=== PATIENT | female | born 1970 | race Caucasian/White ===

== ENCOUNTER 2016-04-12 10:00 | Outpatient (RCR) | payer BC, MEDICAID ==
[~2016-04-12 10:00] MED LIST: AC325T PO; ACYC400T21 PO; ALPR.5T PO; AMOX-355 PO; AMOX500C2 PO; CTLP20T PO; DARI7.5T2 PO; DIFLUCAN PO; DIPH25TA82 PO; DXCC100C PO; EPIN0.3P3 IM; FAMC250T2 PO; FAMC500T2 PO; FAMO20TA73 PO; FAMO40TA6 PO; FLUC100T PO; FLUO40CA PO; GABA-531 PO; GABA400T PO; GRALISE PO; HCTZ12.5T PO; HDR2T PO; HSCO125 PO; HYDR1TAB86 PO; INVANZ IV; LIDOCAINE 3% TOP; LNZ600T PO; MELO-195 PO; META-84 PO; META800T5 PO; METO5TAB2 PO; MORP15TA PO; MORP15TA8 PO; MTR250T PO; MUPI22OI TP; Morphine Sulfate PO; NFPRILOC40 PO; OXYC-12 PO; OXYC-272 PO; PANT40TA PO; PNT40TEC PO; PRD20T PO; PREG200C PO; PREG50C PO; PROLOPRIM PO; SCR1T1 PO; SENN1TAB76 PO; SUCR1TAB PO; TRAM50TA2 PO; TRAZ50TA67 PO; TRIM100T7 PO; TRZ100T PO; TRZ50T PO; Tramadol Hcl PO; VALA100033 PO; [UNRECOGNIZED DRUG - CODE] PO; [UNRECOGNIZED DRUG - OTHER] PO
--- OUTSIDE RECORDS SUMMARY | 2016-04-12 10:04 | XMS REPORT | Continuity of Care Document ---
Author Author [facility] Organization [facility] Address Unknown Phone Unavailable Care Team Providers Care Early Childhood Lead Teacher Name Role Phone Ammon Griffith PCP [phone] Source Comments Some departments are not documenting in the electronic medical record. If you do not see the information that you expected, contact Release of Information in the Health Information Management department at [phone] for further assistance in locating additional records.[facility] Active Allergies and Adverse Reactions Allergen Noted Date Severity Reactions Comments Hyophen 02/07/2014 RASH Phenergan 04/05/2010 UNKNOWN Vancomycin 04/06/2010 ITCHING Current Medications Prescription Sig. Disp. Refills Start End Date Status Date valACYclovir (VALTREX) Take 1,000 mg by mouth Active 500 mg PO tablet twice daily. amoxicillin/K clavulanate Take 1 Tab by mouth every Active (AUGMENTIN) 500/125 mg 12 hours. tablet darifenacin ER(+) Take 7.5 mg by mouth Active (ENABLEX) 7.5 mg tablet daily. FLUoxetine (PROZAC) 20 mg Take 40 mg by mouth Active capsule daily. hydrochlorothiazide Take 12.5 mg by mouth Active (HYDRODIURIL) 12.5 mg tab daily. tablet metaxalone(+) (SKELAXIN) Take 800 mg by mouth Active 800 mg tablet twice daily. morphine IR (MSIR) 15 mg Take 30 mg by mouth twice Active tablet daily pantoprazole DR Take 40 mg by mouth Active (PROTONIX) 40 mg tablet daily. pregabalin (LYRICA) 200 Take 225 mg by mouth Active mg capsule twice daily. traZODone (DESYREL) 150 Take 150 mg by mouth at Active mg tablet bedtime daily. fluconazole (DIFLUCAN) Take 100 mg by mouth Active 100 mg tablet daily. meloxicam (MOBIC) 7.5 mg Take 15 mg by mouth Active tablet daily. gabapentin 600 mg Tb24 Take 1,800 mg by mouth at Active bedtime daily. trimethoprim (TRIMPEX) Take 100 mg by mouth at Active 100 mg tablet bedtime daily. pentosan polysulfate Take 1 Cap by mouth three 270 Cap 3 05/12/19 Active sodium (ELMIRON) 100 mg times daily. Take w/ 16 capsule water 1 hr before or 2 hrs after meals hydrOXYzine (ATARAX) 25 Take 1 Tab by mouth at 30 Tab 3 05/12/19 Active mg tablet bedtime daily. 16 amitriptyline (ELAVIL) 10 Take 1 Tab by mouth at 90 Tab 3 05/12/19 Active mg tablet bedtime daily. 16 estrogens, conjugated Take 0.625 mg by mouth Active (PREMARIN) 0.625 mg daily. tablet acyclovir (ZOVIRAX) 400 Take 400 mg by mouth Active mg tablet every 24 hours. buPROPion SR(+) Take 150 mg by mouth Active (WELLBUTRIN SR) 150 mg twice daily. tablet sulfamethoxazole-trimetho Take 1 Tab by mouth twice Active prim (BACTRIM SS) 400-80 daily. mg tablet gentamicin(#) 10 mg/mL Inhale 80 mg by mouth Active nebu into the lungs. cholecalciferol(+) Take 1 Cap by mouth every 8 Cap 0 11/05/19 Active (Vitamin D3) 50,000 units 7 days. 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 Leukocytosis 02/07/2014 Facial rash 02/07/2014 HSV (herpes simplex virus) infection 08/28/2011 Cellulitis 04/09/2010 Melanoma (HCC) 04/09/2010 Urinary retention 04/09/2010 Blurry vision, bilateral 04/09/2010 Social History Tobacco Use Types Packs/Day Years Used Date Never Smoker Smokeless Tobacco: Never Used Alcohol Use Drinks/Week oz/Week Comments No 0 Standard 0.0 drinks or equivalent Last Filed Vital Signs Vital Sign Reading Time Taken Blood Pressure 110/71 11/03/2015 12:58 PM CDT Pulse 86 11/03/2015 12:58 PM CDT Temperature 36.7 C (98.1 F) 11/03/2015 12:58 PM CDT Respiratory Rate 18 11/03/2015 12:58 PM CDT Height 1.626 m (5' 4") 11/03/2015 12:58 PM CDT Weight 85.276 kg (188 lb) 11/03/2015 12:58 PM CDT Body Mass Index 32.25 11/03/2015 12:58 PM CDT Oxygen Saturation 97% 11/03/2015 12:58 PM CDT Plan of Care Health Maintenance Due Date Last Done Comments Physical (Comprehensive) 1977 Exam Pertussis Vaccine 1981 Tetanus Vaccine 10/30/1987 Cervical Cancer Screening 10/30/1991 Breast Cancer Screening 2010 Influenza Vaccine 10/21/2015 Results from Last 3 Months Not on file
[2016-04-12 10:12] LABS: BASOPHILS % (AUTO) 0 % (0-10); EOSINOPHILS # (AUTO) 0.2 10^3/uL (0.0-0.3); EOSINOPHILS % (AUTO) 2 % (0-10); LYMPHOCYTES # (AUTO) 1.7 X 10^3 (1.0-4.0); LYMPHOCYTES % (AUTO) 27 % (12-44); MEAN CORPUSCULAR HEMOGLOBIN 31 PG (25-34); MEAN CORPUSCULAR HGB CONC 34 G/DL (32-36); MEAN CORPUSCULAR VOLUME 91 FL (80-99); MEAN PLATELET VOLUME 8.2 FL (7.4-10.4); MONOCYTES # (AUTO) 0.5 X 10^3 (0.0-1.0); MONOCYTES % (AUTO) 8 % (0-12); NEUTROPHILS % (AUTO) 62 % (42-75); PLATELET COUNT 340 10^3/uL (130-400); RED CELL DISTRIBUTION WIDTH 12.6 % (10.0-14.5); WHITE BLOOD COUNT 6.3 10^3/uL (4.3-11.0)
[2016-04-12 11:13] LABS: ALANINE AMINOTRANSFERASE 13 U/L (0-55); ALBUMIN 4.4 G/DL (3.2-4.5); ANION GAP 11 MMOL/L (5-14); ASPARTATE AMINO TRANSFERASE 13 U/L (5-34); BILIRUBIN,TOTAL 0.5 MG/DL (0.1-1.0); BLOOD UREA NITROGEN 15 MG/DL (7-18); BUN/CREATININE RATIO 19; CALCIUM 9.6 MG/DL (8.5-10.1); CARBON DIOXIDE 22 MMOL/L (21-32); CHLORIDE 104 MMOL/L (98-107); CREATININE SERUM 0.79 MG/DL (0.60-1.30); GFR ESTIMATED > 60; GLUCOSE 88 MG/DL (70-105); LACTATE DEHYDROGENASE 158 U/L (125-220); POTASSIUM 3.9 MMOL/L (3.6-5.0); SODIUM 137 MMOL/L (135-145); TOTAL PROTEIN 7.1 G/DL (6.4-8.2)
[2016-04-14] MEDS ORDERED: DULO60CA58 PO (08:26)
[2016-04-14] MEDS ORDERED: ACYC200C PO (08:29)
[2016-04-14] MEDS ORDERED: CHOL500050 PO (09:38)
[2016-04-14] MEDS ORDERED: ACYC400T PO (09:38)
[2016-04-14] MEDS ORDERED: AMIT50TA3 PO (09:38)
== END 2016-07-11 | disposition home or self-care (01) ==
LOC: ONC 10:00
PROVIDERS: ATTEND Internal Medicine Hematology & Oncology
DX: Z08 Encounter for follow-up examination after completed treatment for malignant neoplasm (principal); Z85.820 Personal history of malignant melanoma of skin; F17.210 Nicotine dependence, cigarettes, uncomplicated; Z79.899 Other long term (current) drug therapy
CPT/HCPCS: 36415; 80053; 83615; 85025; 99213

== ENCOUNTER 2016-04-13 22:50 | Inpatient (IN) | payer BC, MEDICARE ==
[~2016-04-13] VITALS: Ht 162.6 cm; Wt 91.8 kg
--- OUTSIDE RECORDS SUMMARY | 2016-04-13 22:56 | XMS REPORT | Continuity of Care Document ---
Author Author [facility] Organization [facility] Address Unknown Phone Unavailable Care Team Providers Care Lead Caster Name Role Phone Ammon Griffith PCP [phone] Source Comments Some departments are not documenting in the electronic medical record. If you do not see the information that you expected, contact Release of Information in the Health Information Management department at [phone] for further assistance in locating additional records.[facility] Active Allergies and Adverse Reactions Allergen [...]
--- NOTE | 2016-04-13 23:28 | ED Integumentary General ---
General Chief Complaint: Skin/Wound Problems Stated Complaint: FACE INFECTION Nursing Triage Note: PT TO ED 6 W/ C/O SHINGLES RASH ONSET YESTERDAY, WORSE TODAY. NO VISIBLE RASH NOTED BUT PT DOES C/O BURNING TO SITE. REPORTS RECENT OUTBREAK IN JANUARY OF 2016 INWHICH SHE WAS ADMITTED Source: patient Exam Limitations: no limitations History of Present Illness Time seen by provider: 23:15 Initial Comments Here with report of pain to the right side of her face. She has recurrent shingles infection to that area. She denies involvement to the eye currently. This started on her ear sometime back but had been stable. Over the last 2 days she is noted that she has markedly increasing pain to the right side of her face. She is currently on treatment dose of acyclovir at 800 mg 5 times daily. She had 3 doses yesterday and 5 doses today. She states the pain is getting much worse tonight. She has lesions on her cheek. There is no obvious lesion to her nose or right thigh. She does have a questionable lesion on the right ear. Denies fever or chills. Denies nausea or vomiting. Timing/Duration: getting worse Severity: moderate, severe Location: face Associated Symptoms: blisters change in skin texture edema tingling Allergies and Home Medications Allergies Coded Allergies: promethazine (Verified Allergy, Unknown, 04/13/16) vancomycin (Unverified Allergy, Unknown, RASH, 02/03/14) reacted to iv vancomycin in cancer center on 01/21 Home Medications 30 MG TAB #60 30 MG PO Q12HR Prescribed by: MARYSE VIVAS on 02/27/14 1548 50 MG TAB 90Days 50 MG PO Q6HR PRN PRN pain Prescribed by: MARYSE VIVAS on 02/27/14 1548 Acyclovir 400 Mg Tablet #120 400 MG PO BID Prescribed by: MARYSE VIVAS on 02/27/14 1548 Darifenacin Hydrobromide 7.5 Mg Tab.sr.24h 7.5 MG PO DAILY (Reported) Doxycycline Hyclate 100 Mg Tab #20 100 MG PO BID@ Prescribed by: MARYSE VIVAS on 02/27/14 1548 Fluoxetine Hcl 40 Mg Capsule 40 MG PO DAILY (Reported) Gabapentin 600 Mg Tab.er.24h 1,800 MG PO HS (Reported) Hydrochlorothiazide 12.5 Mg Cap 12.5 MG PO DAILY (Reported) Meloxicam 15 Mg Tablet 15 MG PO DAILY (Reported) Morphine Sulfate 15 Mg Tablet 15 MG PO Q4H PRN PRN PAIN (Reported) Pantoprazole Sodium 40 Mg Tablet.dr 40 MG PO DAILY (Reported) Pregabalin 50 Mg Cap 90Days 200 MG PO BID Prescribed by: MARYSE VIVAS on 02/27/14 154 Trazodone Hcl 100 Mg Tab 90Days 100 MG PO HS Prescribed by: MARYSE VIVAS on 02/27/14 1548 Constitutional: see HPINo chills, No fever EENTM: see HPI Respiratory: no symptoms reportedNo short of breath, No wheezing Cardiovascular: no symptoms reportedNo chest pain, No edema Gastrointestinal: no symptoms reportedNo nausea, No vomiting Genitourinary: no symptoms reported Musculoskeletal: no symptoms reported Skin: see HPI change in color lesions Psychiatric/Neurological: See HPI Other (pain to the trigeminal nerve on the right) Endocrine: No Symptoms Reported All Other Systems Reviewed Negative Unless Noted: Yes Past Hikwvxw-Gdoiwx-Qrbvdz Hx Patient Social History Alcohol Use: Denies Use Recreational Drug Use: No Smoking Status: Never a Smoker Recent Foreign Travel: No Contact w/Someone Who Travel: No Recent Infectious Disease Expo: No Recent Hopitalizations: Yes Immunizations Up To Date Tetanus Booster (TDap): Unknown Seasonal Allergies Seasonal Allergies: No Surgeries HX Surgeries: Yes (2 c sections,tumor removed from abd, neck sx, EGD, Bladder resection) Surgeries: Section, Gallbladder, Hysterectomy Respiratory Hx Respiratory Disorders: No Cardiovascular Hx Cardiac Disorders: No Neurological Hx Neurological Disorders: Yes Neurological Disorders: Headaches /Migraines Reproductive System Hx Reproductive Disorders: Yes (Surgeries for Ovarian cysts) Sexually Transmitted Disease: No HIV/AIDS: No Female Reproductive Disorders: Ovarian Cyst Genitourinary Hx Genitourinary Disorders: Yes (Bladder resection) Genitourinary Disorders: UTI-Chronic Gastrointestinal Hx Gastrointestinal Disorders: Yes (Chronic dysphagia) Gastrointestinal Disorders: Gastroesophageal Reflux, Esophagitis, Hiatal Hernia , Irritable Bowel Musculoskeletal Hx Musculoskeletal Disorders: Yes (radiculopathy) Musculoskeletal Disorders: Fibromyalgia Endocrine Hx Endocrine Disorders: No HEENT HX ENT Disorders: Yes HEENT Disorders: Dysphagia Loss of Vision: Denies Hearing Impairment: Denies Cancer Hx Cancer: Yes Cancer: Lymphoma, Melanoma Psychosocial Hx Psychiatric Problems: Yes Behavioral Health Disorders: Anxiety, Depression Integumentary HX Skin/Integumentary Disorder: No (Prior facial shingles in skin lining) Skin/Integumentary Disorders: Recent Skin Changes Blood Transfusions Hx Blood Disorders: No Adverse Reaction to a Blood Tr: No Reviewed Nursing Assessment Reviewed/Agree w Nursing PMH: Yes Family Medical History Significant Family History: No Pertinent Family Hx Family Medial History: Arthritis 19 MOTHER G8 SISTER Cataracts 19 MOTHER Congenital heart disease 19 FATHER (HEART DZ) Diabetes mellitus 19 FATHER Hypertension 19 FATHER Myocardial infarction 19 FATHER Respiratory disorder 19 FATHER (EMPHYSEMA) Seizure disorder G8 BROTHER (CEBERAL PALSY ALOS) Physical Exam Vital Signs Vital Sign - Last 12Hours 04/13/16 23:04 Temp 97.4 Pulse 115 Resp 20 B/P 144/106 Pulse Ox 98 O2 Delivery Room Air Capillary Refill : Less Than 3 Seconds General Appearance: WD/WN no apparent distress HEENT: PERRL/EOMI pharynx normal other (vesicular lesions to the right side of the face that does not involve the right eye her nose) Neck: full range of motion supple Cardiovascular: regular rate, rhythm no murmur Respiratory: lungs clear normal breath sounds Gastrointestinal: normal bowel sounds non tender soft Back: normal inspection no CVA tenderness no vertebral tenderness Extremities: non-tender normal inspection Neurologic/Psychiatric: alert oriented x 3 Skin: warm/dry other (vesicular lesions to the right face along the trigeminal nerve distribution. Small lesion to the front of the right ear) Skin Problem Location: face Skin Problem Character: lesion, vesicular Lymphatic: no adenopathy Progress/Results/Core Measures Results/Orders Lab Results Laboratory Tests Test 04/13/16 23:59 04/14/16 00:00 Range/Units Basophils # (Auto) 0.0 0.0-0.1 10^3/uL Basophils (%) (Auto) 0 0-10 % Eosinophils # (Auto) 0.2 0.0-0.3 10^3/uL Eosinophils (%) (Auto) 2 0-10 % Hematocrit 41 35-52 % Hemoglobin 14.4 11.5-16.0 G/DL Lymphocytes # (Auto) 2.2 1.0-4.0 X 10^3 Lymphocytes (%) (Auto) 28 12-44 % Mean Corpuscular Hemoglobin 32 25-34 PG Mean Corpuscular Hemoglobin Concent 35 32-36 G/DL Mean Corpuscular Volume 90 80-99 FL Mean Platelet Volume 8.8 7.4-10.4 FL Monocytes # (Auto) 0.6 0.0-1.0 X 10^3 Monocytes (%) (Auto) 8 0-12 % Neutrophils # (Auto) 4.7 1.8-7.8 X 10^3 Neutrophils (%) (Auto) 62 42-75 % Platelet Count 334 130-400 10^3/uL Red Blood Count 4.57 4.35-5.85 10^6/uL Red Cell Distribution Width 12.4 10.0-14.5 % White Blood Count 7.6 4.3-11.0 10^3/uL Alanine Aminotransferase (ALT/SGPT) 22 0-55 U/L Albumin 4.4 3.2-4.5 G/DL Alkaline Phosphatase 75 40-136 U/L Anion Gap 14 5-14 MMOL/L Aspartate Amino Transf (AST/SGOT) 25 5-34 U/L BUN/Creatinine Ratio 15 Blood Urea Nitrogen 13 7-18 MG/DL C-Reactive Protein High Sensitivity 0.36 0.00-0.50 MG/DL Calcium Level 9.4 8.5-10.1 MG/DL Carbon Dioxide Level 21 21-32 MMOL/L Chloride Level 101 98-107 MMOL/L Creatinine 0.84 0.60-1.30 MG/DL Estimat Glomerular Filtration Rate > 60 Glucose Level 98 70-105 MG/DL Lactic Acid Level 1.7 0.5-2.0 MMOL/L Potassium Level 4.0 3.6-5.0 MMOL/L Sodium Level 136 135-145 MMOL/L Total Bilirubin 0.6 0.1-1.0 MG/DL Total Protein 7.6 6.4-8.2 G/DL My Orders Orders-OCTAVIA HERRERA MD Saline Lock/Iv-Start (04/13/16 23:04) Cbc With Automated Diff (04/13/16 23:04) Comprehensive Metabolic Panel (04/13/16 23:04) Hs C Reactive Protein (04/13/16 23:04) Lactic Acid Analyzer (04/13/16 23:04) Blood Culture (04/13/16 23:04) Fentanyl Injection (Sublimaze Injection (04/13/16 23:37) Diphenhydramine Injection (Benadryl Inje (04/13/16 23:46) Acyclovir Injection (Zovirax Injection) (04/14/16 01:13) Vital Signs/I&O Vital Sign - Last 12Hours 04/13/16 23:04 Temp 97.4 Pulse 115 Resp 20 B/P 144/106 Pulse Ox 98 O2 Delivery Room Air Blood Pressure Mean: 119 Progress Note : Progress Note Seen and evaluated. Patient has history of shingles infection to the right side of the face on multiple occasions. She has required admissions to do this on multiple occasions and has had it up to the eye as well. Currently she is without I complaints or symptoms. This is worsening this despite therapeutic dosing of oral acyclovir. We will evaluate for systemic infection with labs. IV, labs and fentanyl 75 g IV ordered. Benadryl 25 mg IV ordered for itching. Monitor patient. 0107: Discussed case with Dr. Sprague. He accepts patient for admission, inpatient status. We will consult Dr. Warren in the morning for eye exam. Acyclovir 800 mg IV ordered now. Discussed with patient and family agree with plan. Departure Communication Time/Spoke to Admitting Phy: 01:07 Impression Impression: Primary Impression: Herpes zoster Qualified Code: B02.8 - Zoster with other complications Additional Impression: Trigeminal neuralgia of right side of face Disposition: ADMITTED INPATIENT Condition: Stable Decision to Admit Reason: Admit from ER (General) Decision to Admit/Date: Apr 14, 2016 Time/Decision to Admit Time: 01:07 Departure-Patient Inst. Referrals: MAISHA PIZANO MD (PCP) Primary Care Physician OCTAVIA HERRERA MD Apr 13, 2016 23:27
[2016-04-13] MEDS ORDERED: fentaNYL INJECTION 100 MCG/2 ML AMP IVP STA (23:37)
[2016-04-13] MEDS ORDERED: diphenhydrAMINE 50 MG/ML INJ (BENADRYL) IV STA (23:46)
[2016-04-14 00:28] LABS: BASOPHILS % (AUTO) 0 % (0-10); EOSINOPHILS # (AUTO) 0.2 10^3/uL (0.0-0.3); EOSINOPHILS % (AUTO) 2 % (0-10); LYMPHOCYTES # (AUTO) 2.2 X 10^3 (1.0-4.0); LYMPHOCYTES % (AUTO) 28 % (12-44); MEAN CORPUSCULAR HEMOGLOBIN 32 PG (25-34); MEAN CORPUSCULAR HGB CONC 35 G/DL (32-36); MEAN CORPUSCULAR VOLUME 90 FL (80-99); MEAN PLATELET VOLUME 8.8 FL (7.4-10.4); MONOCYTES # (AUTO) 0.6 X 10^3 (0.0-1.0); MONOCYTES % (AUTO) 8 % (0-12); NEUTROPHILS # (AUTO) 4.7 X 10^3 (1.8-7.8); NEUTROPHILS % (AUTO) 62 % (42-75); PLATELET COUNT 334 10^3/uL (130-400); RED BLOOD COUNT 4.57 10^6/uL (4.35-5.85); RED CELL DISTRIBUTION WIDTH 12.4 % (10.0-14.5); WHITE BLOOD COUNT 7.6 10^3/uL (4.3-11.0)
[2016-04-14 00:51] LABS: ALANINE AMINOTRANSFERASE 22 U/L (0-55); ALBUMIN 4.4 G/DL (3.2-4.5); ANION GAP 14 MMOL/L (5-14); ASPARTATE AMINO TRANSFERASE 25 U/L (5-34); BILIRUBIN,TOTAL 0.6 MG/DL (0.1-1.0); BLOOD UREA NITROGEN 13 MG/DL (7-18); BUN/CREATININE RATIO 15; CALCIUM 9.4 MG/DL (8.5-10.1); CARBON DIOXIDE 21 MMOL/L (21-32); CHLORIDE 101 MMOL/L (98-107); CREATININE SERUM 0.84 MG/DL (0.60-1.30); GFR ESTIMATED > 60; GLUCOSE 98 MG/DL (70-105); SODIUM 136 MMOL/L (135-145); TOTAL PROTEIN 7.6 G/DL (6.4-8.2); hs C REACTIVE PROTEIN 0.36 MG/DL (0.00-0.50)
[2016-04-14] MEDS ORDERED: ACYCLOVIR INJECTION 800 MG in NS (IVPB) 250 ML IV STA (01:13)
[2016-04-14] MEDS ORDERED: fentaNYL INJECTION 100 MCG/2 ML AMP IVP STA (01:47)
[2016-04-14] MEDS ORDERED: diphenhydrAMINE 50 MG/ML INJ (BENADRYL) IV STA (01:48)
[2016-04-14 02:00] VITALS: BP 135/87
[2016-04-14] MEDS ORDERED: fentaNYL INJECTION 100 MCG/2 ML AMP IV PRN (03:15)
[2016-04-14] MEDS ORDERED: ONDANSETRON 4 MG/2 ML (SDV) Z0FRAN IV PRN (03:15)
[2016-04-14 04:40] VITALS: BP 104/63
[2016-04-14] MEDS ORDERED: FLU TRIvalent (5 YOA+) 2016-17 (AFLURIA) 0.5 ML IM ONE (08:00)
[2016-04-14 08:12] VITALS: BP 112/68
[2016-04-14] MEDS ORDERED: DULO60CA58 PO (08:26)
[2016-04-14] MEDS ORDERED: ACYC200C PO (08:29)
[2016-04-14] MEDS: ACYCLOVIR 800 MG/NS 250 ML IVPB IV SCH ×4 (08:48→17:18)
[2016-04-14] MEDS ORDERED: diphenhydrAMINE 50 MG/ML INJ (BENADRYL) IVP ONE (09:00)
[2016-04-14] MEDS ORDERED: AMIT50TA3 PO (09:38)
[2016-04-14] MEDS ORDERED: ACYC400T PO (09:38)
[2016-04-14] MEDS ORDERED: CHOL500050 PO (09:38)
[2016-04-14 12:00] VITALS: BP 114/70
[2016-04-14] MEDS ORDERED: ARTIFICAL TEARS 0.4 ML UNIT DOSE (REFRESH PLUS) OD PRN (12:15)
[2016-04-14] MEDS ORDERED: PATIENT MAY USE OWN MEDS, ALL MC SCH (12:30)
--- NOTE | 2016-04-14 12:33 | Consultation ---
History of Present Illness History of Present Illness Patient Consulted On(john/time) 04/14/16 12:28 Date of Admission History of Present Illness This is a 45 year old female with a history of recurrent shingles infections to her right face and eye. She has had worsening pain to her right face with burning and itching the past 2 days. She takes acyclovir routinely and did up her dose when these symptoms came on but the pain was worsening so she presented to the emergency room. She does report that the side of her face is bigger and more tender then with her usual flare-ups. She has been admitted for IV acyclovir and IV pain control. Allergies and Home Medications Allergies Coded Allergies: promethazine (Verified Allergy, Unknown, 04/13/16) vancomycin (Unverified Allergy, Unknown, RASH, 02/03/14) reacted to iv vancomycin in cancer center on 01/21 Home Medications Acyclovir 200 Mg Capsule 400 MG PO BID (Reported) TAKES 2 (200 MG) CAPSULES / MAINTENANCE DOSE Acyclovir 400 Mg Tablet 10Days 800 MG PO 5XD (Reported) FILLED 04/12/16 #100 FOR A 10 DAY THERAPY / TAKES 2 (400 MG) TABLETS Amitriptyline HCl 50 Mg Tablet 50 MG PO HS (Reported) Cholecalciferol (Vitamin D3) 5,000 Unit Capsule 5,000 UNIT PO DAILY (Reported) Duloxetine HCl 60 Mg Capsule.dr 60 MG PO DAILY (Reported) Past Vorvapr-Eyvotq-Rodpol Hx Patient Social History Alcohol Use: Denies Use Recreational Drug Use: No Smoking Status: Never a Smoker Recent Foreign Travel: No Contact w/Someone Who Travel: No Recent Infectious Disease Expo: No Recent Hopitalizations: Yes Physical Abuse Screen: No Sexual Abuse: No Immunizations Up To Date Tetanus Booster (TDap): Unknown Seasonal Allergies Seasonal Allergies: No Surgeries HX Surgeries: Yes (2 c sections,tumor removed from abd, neck sx, EGD, Bladder resection) Surgeries: Section, Gallbladder, Hysterectomy Respiratory Hx Respiratory Disorders: No Cardiovascular Hx Cardiac Disorders: No Neurological Hx Neurological Disorders: Yes Neurological Disorders: Headaches /Migraines Reproductive System Hx Reproductive Disorders: Yes (Surgeries for Ovarian cysts) Sexually Transmitted Disease: No HIV/AIDS: No Female Reproductive Disorders: Ovarian Cyst Genitourinary Hx Genitourinary Disorders: Yes (Bladder resection) Genitourinary Disorders: UTI-Chronic Gastrointestinal Hx Gastrointestinal Disorders: Yes (Chronic dysphagia) Gastrointestinal Disorders: Gastroesophageal Reflux, Esophagitis, Hiatal Hernia , Irritable Bowel Musculoskeletal Hx Musculoskeletal Disorders: Yes (radiculopathy) Musculoskeletal Disorders: Fibromyalgia Endocrine Hx Endocrine Disorders: No HEENT HX ENT Disorders: Yes HEENT Disorders: Dysphagia Loss of Vision: Denies Hearing Impairment: Denies Cancer Hx Cancer: Yes Cancer: Lymphoma, Melanoma Psychosocial Hx Psychiatric Problems: Yes Behavioral Health Disorders: Anxiety, Depression Integumentary HX Skin/Integumentary Disorder: No (Prior facial shingles in skin lining) Skin/Integumentary Disorders: Recent Skin Changes Blood Transfusions Hx Blood Disorders: No Adverse Reaction to a Blood Tr: No Reviewed Nursing Assessment Reviewed/Agree w Nursing PMH: Yes Family Medical History Significant Family History: No Pertinent Family Hx Family Medial History: Arthritis 19 MOTHER G8 SISTER Cataracts 19 MOTHER Congenital heart disease 19 FATHER (HEART DZ) Diabetes mellitus 19 FATHER Hypertension 19 FATHER Myocardial infarction 19 FATHER Respiratory disorder 19 FATHER (EMPHYSEMA) Seizure disorder G8 BROTHER (CEBERAL PALSY ALOS) Review of Systems-General Constitutional: No no symptoms reported, No see HPI, No chills, No diaphoresis , No dizziness, No fever, No malaise, No weakness, No weight gain, No weight loss, No other EENTM: other (right facial pain) Respiratory: No no symptoms reported, No see HPI, No cough, No dyspnea on exertion, No hemoptysis, No orthopnea, No phlegm, No short of breath, No stridor , No wheezing, No other Cardiovascular: No no symptoms reported, No see HPI, No chest pain, No edema, No Hx of Intervention, No palpitations, No syncope, No vascular heart diseas, No other Gastrointestinal: No RUQ, No LUQ, No RLQ, No LLQ, No no symptoms reported, No see HPI, No abdominal pain, No constipation, No diarrhea, No dysphagia, No hematemesis, No heartburn, No jaundice, No loss of appetite, No melena, No nausea, No vomiting, No other Genitourinary: No no symptoms reported, No see HPI, No decreased output, No discharge, No dysuria, No frequency, No hematuria, No hesitancy, No incontinence , No nocturia, No pain, No other Musculoskeletal: neck pain Skin: No no symptoms reported, No see HPI, No change in color, No change in hair/nails, No dryness, No hx of skin cancer, No lesions, No lumps, No pruritus , No rash, No other Psychiatric/Neurological: Numbness Paresthesia (right neck/face) Physical Exam-General Problems Physical Exam Vital Signs Vital Sign - Last 12Hours 04/13/16 23:04 Temp 97.4 Pulse 115 Resp 20 B/P 144/106 Pulse Ox 98 O2 Delivery Room Air Capillary Refill : Less Than 3 Seconds General Appearance: no apparent distress Eyes: Bilateral Eye PERRL HEENT: PERRL/EOMI other (right parotid enlarged and tender) Neck: supple (with scarring) Respiratory: lungs clear Cardiovascular: regular rate, rhythm Gastrointestinal: normal bowel sounds non tender soft Rectal: deferred Back: no CVA tenderness Extremities: non-tender normal inspection no pedal edema no calf tenderness Neurologic/Psychiatric: alert normal mood/affect oriented x 3 Skin: normal color warm/dry Lymphatic: other (right neck tender but no other obvious salivary gland or lymph node enlargement--just parotid gland) Comments Laboratory Tests 04/13/16 23:59: Basophils # (Auto) 0.0, Basophils (%) (Auto) 0, Eosinophils # (Auto) 0.2, Eosinophils (%) (Auto) 2, Hematocrit 41, Hemoglobin 14.4, Lymphocytes # (Auto) 2.2, Lymphocytes (%) (Auto) 28, Mean Corpuscular Hemoglobin 32, Mean Corpuscular Hemoglobin Concent 35, Mean Corpuscular Volume 90, Mean Platelet Volume 8.8, Monocytes # (Auto) 0.6, Monocytes (%) (Auto) 8, Neutrophils # (Auto ) 4.7, Neutrophils (%) (Auto) 62, Platelet Count 334, Red Blood Count 4.57, Red Cell Distribution Width 12.4, White Blood Count 7.6 04/14/16 00:00: Alanine Aminotransferase (ALT/SGPT) 22, Albumin 4.4, Alkaline Phosphatase 75, Anion Gap 14, Aspartate Amino Transf (AST/SGOT) 25, BUN/Creatinine Ratio 15, Blood Urea Nitrogen 13, C-Reactive Protein High Sensitivity 0.36, Calcium Level 9.4, Carbon Dioxide Level 21, Chloride Level 101, Creatinine 0.84, Estimat Glomerular Filtration Rate > 60, Glucose Level 98, Lactic Acid Level 1.7, Potassium Level 4.0, Sodium Level 136, Total Bilirubin 0.6, Total Protein 7.6 Assessment/Plan Assessment/Plan Admission Diagnosis/Plan 1. Right Facial Pain with History of Recurrent Shingles of Right Face and Eye-- continue IV acyclovir, resume cymbalta 2. Right Parotitis--add IV abx, sour, prednisone and toradol prn Clinical Quality Measures DVT/VTE Risk/Contraindication: Risk Factor Score Per Nursin RFS Level Per Nursing on Admit: 2=Moderate ABELARDO CASE DO Apr 14, 2016 12:33
[2016-04-14] MEDS ORDERED: cefTRIAXone 1 GM (ROCEPHIN) VIAL ONE (13:02)
[2016-04-14] MEDS ORDERED: cefTRIAXone INJECTION 1,000 MG in NS (IVPB) 50 ML IV NR (13:43)
[2016-04-14] MEDS ORDERED: predniSONE 20 MG TAB PO NR (13:44)
[2016-04-14] MEDS: KETOROLAC 30 MG/ML VIAL IVP PRN ×2 (13:59→19:54)
--- NOTE | 2016-04-14 16:12 | Progress Note-Standard ---
Standard Progress Note Progress Notes/Assess & Plan Progress/Assessment & Plan Patient is reporting throbbing pain behind the right eye. Started two days ago. has a history of Zoster R side for last 4 years No loss of vision/photophobia/diplopia or consistant pain is noted. Mild swelling along jaw line self reported by patient to be stable for last 24 hours PERRLA OU IOP 12mmHG OU FROM present Lids are normal no edema or inflammation noted. 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
[2016-04-14 16:40] VITALS: BP 117/78
[2016-04-14 19:40] VITALS: BP 131/83
[2016-04-14] MEDS: AMITRIPTYLINE 50 MG (ELAVIL) TAB PO SCH (19:58)
[2016-04-14] MEDS ORDERED: AMITRIPTYLINE 50 MG (ELAVIL) TAB PO SCH (21:00)
[2016-04-15] VITALS: BP 116/73
[2016-04-15] MEDS: diphenhydrAMINE 25 MG TAB (BENADRYL) PO PRN ×3 (00:07→22:16)
[2016-04-15] MEDS: ACYCLOVIR 800 MG/NS 250 ML IVPB IV SCH ×6 (01:23→17:33)
[2016-04-15] MEDS: KETOROLAC 30 MG/ML VIAL IVP PRN ×2 (01:27→22:16)
[2016-04-15] MEDS: predniSONE 20 MG TAB PO SCH (06:32)
[2016-04-15 08:15] VITALS: BP 113/76
--- NOTE | 2016-04-15 08:50 | Progress Note (SOAP) ---
Subjective Subjective/Events-last exam right side of face shingles improving. Right parotiditis swollen and painful to palpation. Mild uveitis. Patient feel she is improving Objective Exam Vital Signs Date Time Temp Pulse Resp B/P Pulse Ox O2 Delivery O2 Flow Rate FiO2 04/15/16 08:15 97.7 73 16 113/76 97 Room Air 04/15/16 00:00 97.7 111 20 116/73 97 Room Air 04/14/16 19:40 97.6 101 18 131/83 99 Room Air 04/14/16 16:40 96.5 101 16 117/78 96 Room Air 04/14/16 12:00 97.0 99 20 114/70 96 Room Air I & O 04/15/16 07:00 Intake Total 3118 ml Output Total 2300 ml Balance 818 ml Capillary Refill : Less Than 3 Seconds General Appearance: No Apparent Distress WD/WN HEENT: Other (carotid swollen and painful. Shingles improving) Neck: Full Range of Motion Normal Inspection Respiratory: Chest Non Tender Lungs Clear No Accessory Muscle Use No Respiratory Distress Cardiovascular: Regular Rate, Rhythm Gastrointestinal: non tender Results Lab Microbiology 04/14/16 Blood Culture - Preliminary, Resulted No growth Assessment/Plan Assessment/Plan Assess & Plan/Chief Complaint right side of face shingles. Right parotiditis. Mild uveitis Diagnosis/Problems: Clinical Quality Measures DVT/VTE Risk/Contraindication: Risk Factor Score Per Nursin RFS Level Per Nursing on Admit: 2=Moderate OSCAR VARMA DO Apr 15, 2016 08:50
[2016-04-15] MEDS ORDERED: DULoxetine 30 MG (CYMBALTA) CAP PO SCH (09:00)
[2016-04-15] MEDS ORDERED: VITAMIN D3 5,000 UNITS (CHOLECALCIFEROL ) CAPSULE PO SCH (09:00)
[2016-04-15] MEDS: DULoxetine 30 MG (CYMBALTA) CAP PO SCH (09:27)
[2016-04-15] MEDS: VITAMIN D3 5,000 UNITS (CHOLECALCIFEROL ) CAPSULE PO SCH (09:27)
[2016-04-15] MEDS: cefTRIAXone INJECTION 1,000 MG in NS (IVPB) 50 ML IV SCH (09:27)
--- NOTE | 2016-04-15 10:31 | Progress Note-Standard ---
Standard Progress Note Progress Notes/Assess & Plan Progress/Assessment & Plan 45 year old female with history of metastatic melanoma and recurrent right facial herpes viral infection, admitted with flare up of right facial pain, swelling and breakout. Currently on Acyclovir IV with improvement in discomfort and swelling. Not needed pain medications since last night. Complained of itching on right side of face controlled with benadryl. Right eye feels better without pain or visual problems. Appetite good and eating well. Bowels soft but no diarrhea. Continue current treatments. Increase activity as tolerated. MARYSE VIVAS Apr 15, 2016 10:31
--- NOTE | 2016-04-15 11:09 | HISTORY AND PHYSICAL ---
DATE OF ADMISSION: 04/14/2016 The patient is admission to room 435. PRESENTING COMPLAINT: Pain and swelling on the right side of the face. HISTORY OF PRESENT ILLNESS: Ms. Marshall is a 45-year-old female who came to the emergency room last night with complaints of rash on the right side of the face with significant pain and swelling. 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 When her symptoms started two days ago, the patient had increased the dose of acyclovir to 800 mg 5 times daily but in spite of this, her symptoms were worsening last night and hence the emergency room visit. After evaluation she was admitted to the hospital for IV acyclovir. Because of right eye pain, an ophthalmology evaluation was requested with Dr. Warren. PAST MEDICAL HISTORY: 1. Significant for: Stage III melanoma diagnosed 15 years ago with lymphadenopathy in the right lower cervical/supraclavicular area and underwent resection of this followed by a local radiation therapy. A primary site was not identified. She was treated with adjuvant interferon therapy for one year. Approximately 3 months after the completion of the adjuvant therapy she developed metastatic disease on the abdominal wall and underwent resection of this. Since then she has been on surveillance without evidence of recurrence. 2. Since the last several years she has had recurrent episodes of herpes viral infection involving the right side of the face and is on suppressive therapy as an outpatient with occasional flare-ups. 3. The patient was diagnosed with chronic sinusitis and underwent surgical debridement at [facility]. She also had evidence of MRSA and Pseudomonas infection at that time and completed the antibiotic therapy. She was diagnosed with severe vitamin D deficiency and is on replacement. 4. No other major medical problems. 5. Prior surgeries are as mentioned above. SOCIAL HISTORY: The patient is and lives near [place], [place]. 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 She denied any tobacco, alcohol or other recreational drug use. FAMILY HISTORY: Unremarkable and noncontributory. HOME MEDICATIONS: Home medications where reviewed and include: 1. Acyclovir 400 mg b.i.d. 2. Amitriptyline 50 mg at bedtime. 3. Cymbalta 60 mg daily. PHYSICAL EXAMINATION: Physical examination today showed middle aged female, well developed and nourished, awake and oriented in moderate distress due to the pain. VITAL SIGNS: Temperature was 97, pulse rate of 99, respiratory rate 20, blood pressure 114/70. Pulse oximetry was 96% on room air. HEENT: Normocephalic, extraocular muscles intact. There is post surgical and radiation changes of the right side of the neck. There is swelling of the right side of the face with a few skin lesions noted suggestive of herpes viral infection. Oral mucosa moist without lesions. NECK: With post surgical radiation changes as mentioned above. No other lymphadenopathy palpable. CHEST: Chest was symmetrical. LUNGS: Clear to auscultation without wheezes or rales. CARDIOVASCULAR EXAM: Regular in rate and rhythm. No murmurs or gallops heard. ABDOMEN: Soft, nontender, with no hepatosplenomegaly or other masses palpable. EXTREMITIES: Showed no edema. NEUROLOGICAL EXAM: Grossly intact without focal motor deficits. LABORATORY: CBC done last night at the emergency room showed WBC 7.6, hemoglobin 14.4, and platelet count of 334,000 with neutrophil count of 4.7. Chemistry panel showed normal electrolytes. BUN was 13, creatinine 0.84 with a GFR more than 60 mL per minute. Liver function studies were within normal limits. Lactic acid was 1.7. C-reactive protein was 0.36. IMPRESSION: 1. Recurrent herpes viral infection of right trigeminal nerve. 2. Significant pain due to above. 3. History of metastatic melanoma treated as mentioned above. PLAN: 1. I will admit the patient to the hospital and start on acyclovir or 10 mg/kg IV every 8 hours. 2. Pain control with fentanyl 75 mcg IV as needed. 3. Continue home medications. 4. Obtain a consultation with Dr. Warren because of right eye discomfort to rule out eye involvement. 5. Obtain a consultation with Dr. Flor for concurrent medical management. Job ID: [id number] Dictated Date: 04/14/2016 16:32:39 Logistics Administrator Date: 04/15/2016 10:40:39/sim PINO
[2016-04-15] MEDS: fentaNYL INJECTION 100 MCG/2 ML AMP IV PRN ×2 (12:21→15:56)
--- NOTE | 2016-04-15 14:34 | Progress Note-Standard ---
Standard Progress Note Progress Notes/Assess & Plan Progress/Assessment & Plan Patient had a throbbing pain that has resolved behind the right eye Mild swelling along jaw line improved in the last 24 hours PERRLA OU IOP 12mmHG OU FROM present Lids are normal no edema or inflammation noted. Conj OS white and quiet OD no circumlimbal injection Anterior chamber appears clear Vitreous clear no signs of posterior inflammation on non dilated exam Macula has strong foveal light reflex Vascularization normal C/D .25 vitreous is clear with no signs of inflammation Final Diagnosis Since patient is improving with IV Antiviral and systemic steroid will delay topical steroid therapy OD. Previous pain likely from edema surrounding orbit which is improving. Mild early uveitis has improved significantly with heavy topical lubrication Verbal orders for AT QID OD provided to staff Will not RTC on patient will inpatient unless or condition regresses. Patient to schedule an IOP check in clinic when systemic steroid is discontinued CARMEN ALVAREZ OD Apr 15, 2016 2:34 pm
[2016-04-15 16:00] VITALS: BP 135/86
[2016-04-15] MEDS: ARTIFICAL TEARS 0.4 ML UNIT DOSE (REFRESH PLUS) OD SCH ×2 (17:33→20:27)
[2016-04-15] MEDS: AMITRIPTYLINE 50 MG (ELAVIL) TAB PO SCH (19:41)
[2016-04-16] VITALS: BP 145/88
[2016-04-16] MEDS: ACYCLOVIR 800 MG/NS 250 ML IVPB IV SCH ×8 (01:09→18:26)
[2016-04-16] MEDS: fentaNYL INJECTION 100 MCG/2 ML AMP IV PRN ×2 (01:13→20:03)
[2016-04-16 05:15] LABS: BASOPHILS % (AUTO) 0 % (0-10); EOSINOPHILS # (AUTO) 0.2 10^3/uL (0.0-0.3); EOSINOPHILS % (AUTO) 2 % (0-10); LYMPHOCYTES # (AUTO) 2.3 X 10^3 (1.0-4.0); LYMPHOCYTES % (AUTO) 35 % (12-44); MEAN CORPUSCULAR HEMOGLOBIN 31 PG (25-34); MEAN CORPUSCULAR HGB CONC 34 G/DL (32-36); MEAN CORPUSCULAR VOLUME 92 FL (80-99); MEAN PLATELET VOLUME 8.9 FL (7.4-10.4); MONOCYTES # (AUTO) 0.5 X 10^3 (0.0-1.0); MONOCYTES % (AUTO) 7 % (0-12); NEUTROPHILS # (AUTO) 3.7 X 10^3 (1.8-7.8); NEUTROPHILS % (AUTO) 55 % (42-75); PLATELET COUNT 302 10^3/uL (130-400); RED BLOOD COUNT 4.01 10^6/uL (4.35-5.85); RED CELL DISTRIBUTION WIDTH 12.1 % (10.0-14.5); WHITE BLOOD COUNT 6.7 10^3/uL (4.3-11.0)
[2016-04-16 05:35] LABS: ANION GAP 9 MMOL/L (5-14); BLOOD UREA NITROGEN 10 MG/DL (7-18); BUN/CREATININE RATIO 14; CALCIUM 8.3 MG/DL (8.5-10.1); CARBON DIOXIDE 20 MMOL/L (21-32); CHLORIDE 109 MMOL/L (98-107); CREATININE SERUM 0.73 MG/DL (0.60-1.30); GFR ESTIMATED > 60; GLUCOSE 83 MG/DL (70-105); POTASSIUM 3.9 MMOL/L (3.6-5.0); SODIUM 138 MMOL/L (135-145)
[2016-04-16] MEDS: predniSONE 20 MG TAB PO SCH (06:25)
[2016-04-16 08:00] VITALS: BP 124/80
[2016-04-16] MEDS: DULoxetine 30 MG (CYMBALTA) CAP PO SCH (08:28)
[2016-04-16] MEDS: cefTRIAXone INJECTION 1,000 MG in NS (IVPB) 50 ML IV SCH (08:28)
[2016-04-16] MEDS: VITAMIN D3 5,000 UNITS (CHOLECALCIFEROL ) CAPSULE PO SCH (08:28)
[2016-04-16] MEDS: ARTIFICAL TEARS 0.4 ML UNIT DOSE (REFRESH PLUS) OD SCH ×4 (08:29→19:59)
--- NOTE | 2016-04-16 08:51 | Progress Note (SOAP) ---
Subjective Subjective/Events-last exam patient feeling better today. Parotid gland swelling is less. Patient has less pain in parotid gland. Shingles in right side of face is improving according to patient. Patient having less pain in the air. Patient voices no complaints Objective Exam Vital Signs Date Time Temp Pulse Resp B/P Pulse Ox O2 Delivery O2 Flow Rate FiO2 04/16/16 00:00 97.5 81 22 145/88 98 Room Air 04/15/16 16:00 97.8 94 18 135/86 98 Room Air I & O 04/16/16 07:00 Intake Total 3422 ml Output Total 4100 ml Balance -678 ml Capillary Refill : Less Than 3 Seconds General Appearance: No Apparent Distress WD/WN HEENT: Other (parotid gland right less swelling. Shingles right side of face) Neck: Normal Inspection Respiratory: Chest Non Tender Lungs Clear No Accessory Muscle Use No Respiratory Distress Cardiovascular: Regular Rate, Rhythm No Murmur Results Lab Laboratory Tests 04/16/16 04:36 Laboratory Tests 04/16/16 04:36: Anion Gap 9, BUN/Creatinine Ratio 14, Basophils # (Auto) 0.0, Basophils (%) ( Auto) 0, Blood Urea Nitrogen 10, Calcium Level 8.3L, Carbon Dioxide Level 20L, Chloride Level 109H, Creatinine 0.73, Eosinophils # (Auto) 0.2, Eosinophils (%) (Auto) 2, Estimat Glomerular Filtration Rate > 60, Glucose Level 83, Hematocrit 37, Hemoglobin 12.5, Lymphocytes # (Auto) 2.3, Lymphocytes (%) (Auto) 35, Mean Corpuscular Hemoglobin 31, Mean Corpuscular Hemoglobin Concent 34, Mean Corpuscular Volume 92, Mean Platelet Volume 8.9, Monocytes # (Auto) 0.5, Monocytes (%) (Auto) 7, Neutrophils # (Auto) 3.7, Neutrophils (%) (Auto) 55, Platelet Count 302, Potassium Level 3.9, Red Blood Count 4.01L, Red Cell Distribution Width 12.1, Sodium Level 138, White Blood Count 6.7 Microbiology 04/14/16 Blood Culture - Preliminary, Resulted No growth Assessment/Plan Assessment/Plan Assess & Plan/Chief Complaint right side of face shingles. Right parotiditis. Mild uveitis. . 04/16/16. Shingles improving on right side of face. Right parotiditis getting smaller and less painful Diagnosis/Problems: Clinical Quality Measures DVT/VTE Risk/Contraindication: Risk Factor Score Per Nursin RFS Level Per Nursing on Admit: 2=Moderate OSCAR VARMA DO Apr 16, 2016 08:50
--- NOTE | 2016-04-16 11:21 | Progress Note-Standard ---
Standard Progress Note Progress Notes/Assess & Plan Progress/Assessment & Plan 45 year old female with history of metastatic melanoma and recurrent right facial herpes viral infection, admitted with flare up of right facial pain, swelling and breakout. Currently on Acyclovir IV with improvement in discomfort and swelling. Not needed pain medications since last night. Complained of intermittent pain on right side of face. Right eye feels better without pain or visual problems. Appetite good and eating well. Bowels soft but no diarrhea. Has poor venous access. Will order PICC line for tomorrow AM. Continue current treatments. Increase activity as tolerated. MARYSE VIVAS Apr 16, 2016 11:21
[2016-04-16] MEDS: KETOROLAC 30 MG/ML VIAL IVP PRN (15:36)
[2016-04-16 16:57] VITALS: BP 120/78
[2016-04-16] MEDS: AMITRIPTYLINE 50 MG (ELAVIL) TAB PO SCH (19:59)
[2016-04-16 23:54] VITALS: BP 114/77
[2016-04-17] MEDS: ACYCLOVIR 800 MG/NS 250 ML IVPB IV SCH ×6 (01:04→17:13)
[2016-04-17] MEDS: KETOROLAC 30 MG/ML VIAL IVP PRN ×3 (01:04→20:23)
[2016-04-17] MEDS: predniSONE 20 MG TAB PO SCH (06:19)
[2016-04-17 08:00] VITALS: BP 132/84
[2016-04-17] MEDS: DULoxetine 30 MG (CYMBALTA) CAP PO SCH (09:16)
[2016-04-17] MEDS: ARTIFICAL TEARS 0.4 ML UNIT DOSE (REFRESH PLUS) OD SCH ×4 (09:16→20:04)
[2016-04-17] MEDS: VITAMIN D3 5,000 UNITS (CHOLECALCIFEROL ) CAPSULE PO SCH (09:16)
[2016-04-17] MEDS: cefTRIAXone INJECTION 1,000 MG in NS (IVPB) 50 ML IV SCH (09:17)
[2016-04-17] MEDS: fentaNYL INJECTION 100 MCG/2 ML AMP IV PRN ×3 (10:05→22:57)
--- NOTE | 2016-04-17 11:37 | Diagnostic Imaging Report ---
EXAMINATION: Portable upright radiograph of the chest. INDICATION: PICC line placement. FINDINGS: The left PICC line is seen with the tip at the mid SVC level. The lungs are clear. The heart size is normal. There is no effusion or pneumothorax. The mediastinum and hilum appear unremarkable. IMPRESSION: A left PICC line is seen with the tip at the SVC level. Dictated by: Dictated on workstation # [id number]
--- NOTE | 2016-04-17 13:09 | Progress Note (SOAP) ---
Subjective Subjective/Events-last exam Fwup right facial pain with history of recurrent herpes zoster, right parotitis. Facial swelling and pain much improved. Objective Exam Vital Signs Date Time Temp Pulse Resp B/P Pulse Ox O2 Delivery O2 Flow Rate FiO2 04/17/16 08:00 97.5 85 12 132/84 97 Room Air 04/16/16 23:54 97.3 94 18 114/77 99 Room Air 04/16/16 16:57 97.0 98 18 120/78 100 Room Air I & O 04/17/16 07:00 Intake Total 3132 ml Output Total 4100 ml Balance -968 ml Capillary Refill : Less Than 3 Seconds General Appearance: No Apparent Distress HEENT: Other Neurologic/Psychiatric: Alert Oriented x3 Skin: Normal Color Warm/Dry Results Lab Microbiology 04/14/16 Blood Culture - Preliminary, Resulted No growth Assessment/Plan Assessment/Plan Assess & Plan/Chief Complaint 1. Right Facial Pain with History of Recurrent Shingles of Right Face and Eye-- continue IV acyclovir 2. Right Parotitis--improving, continue current meds Diagnosis/Problems: Clinical Quality Measures DVT/VTE Risk/Contraindication: Risk Factor Score Per Nursin RFS Level Per Nursing on Admit: 2=Moderate ABELARDO CASE DO Apr 17, 2016 13:09
[2016-04-17 16:14] VITALS: BP 133/66
--- NOTE | 2016-04-17 16:50 | Progress Note-Standard ---
Standard Progress Note Progress Notes/Assess & Plan Progress/Assessment & Plan 45 year old female with history of metastatic melanoma and recurrent right facial herpes viral infection, admitted with flare up of right facial pain, swelling and breakout. Currently on Acyclovir IV D # 4 with improvement in discomfort and swelling. Needed pain medications today because of slight increase in swelling and pain. Right eye feels better without pain or visual problems. Appetite good and eating well. Bowels soft but no diarrhea. Had a PICC line placed today because of poor venous access. Continue current treatments. Increase activity as tolerated. Will DC droplet isolation today. MARYSE VIVAS Apr 17, 2016 16:50
[2016-04-17] MEDS: diphenhydrAMINE 25 MG TAB (BENADRYL) PO PRN (17:17)
[2016-04-17] MEDS: AMITRIPTYLINE 50 MG (ELAVIL) TAB PO SCH (20:05)
[2016-04-18] VITALS: BP 123/61
[2016-04-18] MEDS: ACYCLOVIR 800 MG/NS 250 ML IVPB IV SCH ×6 (00:07→17:40)
[2016-04-18] MEDS: predniSONE 20 MG TAB PO SCH (06:18)
[2016-04-18 08:00] VITALS: BP 137/66
[2016-04-18] MEDS: cefTRIAXone INJECTION 1,000 MG in NS (IVPB) 50 ML IV SCH (08:00)
[2016-04-18] MEDS: DULoxetine 30 MG (CYMBALTA) CAP PO SCH (08:01)
[2016-04-18] MEDS: VITAMIN D3 5,000 UNITS (CHOLECALCIFEROL ) CAPSULE PO SCH (08:01)
[2016-04-18] MEDS: ARTIFICAL TEARS 0.4 ML UNIT DOSE (REFRESH PLUS) OD SCH ×4 (08:01→20:57)
[2016-04-18] MEDS: fentaNYL INJECTION 100 MCG/2 ML AMP IV PRN ×3 (08:14→21:01)
[2016-04-18] MEDS: diphenhydrAMINE 25 MG TAB (BENADRYL) PO PRN ×2 (11:13→17:47)
[2016-04-18] MEDS: KETOROLAC 30 MG/ML VIAL IVP PRN (11:13)
[2016-04-18 15:45] VITALS: BP 115/62
--- NOTE | 2016-04-18 17:07 | Progress Note-Standard ---
Standard Progress Note Progress Notes/Assess & Plan Progress/Assessment & Plan 45 year old female with history of metastatic melanoma and recurrent right facial herpes viral infection, admitted with flare up of right facial pain, swelling and breakout. Currently on Acyclovir IV D # 5 with improvement in discomfort and swelling. Needed pain medications today AM. Right eye feels better without pain or visual problems. Appetite good and eating well. Bowels soft but no diarrhea. PICC line functioning well. Continue current treatments. Will d/c toradol today. Decrease prednisone to 10 mg starting tomorrow. If feeling better tomorrow, will consider changing acyclovir to po and pain medications to po. Increase activity as tolerated. Home soon if stable. MARYSE VIVAS Apr 18, 2016 17:07
--- NOTE | 2016-04-18 17:57 | Progress Note (SOAP) ---
Subjective Subjective/Events-last exam Fwup right facial pain with history of recurrent herpes zoster, right parotitis. Facial swelling and pain much improved. Objective Exam Vital Signs Date Time Temp Pulse Resp B/P Pulse Ox O2 Delivery O2 Flow Rate FiO2 04/18/16 15:45 98.0 114 20 115/62 97 Room Air 04/18/16 08:00 97.6 89 20 137/66 96 Room Air 04/18/16 00:00 97.1 93 20 123/61 96 Room Air 04/17/16 20:10 Room Air I & O 04/18/16 07:00 Intake Total 3802 ml Output Total 4200 ml Balance -398 ml Capillary Refill : Less Than 3 Seconds General Appearance: No Apparent Distress Neck: Supple Other (right parotid much less swollen--no facial lesions) Neurologic/Psychiatric: Alert Oriented x3 Skin: Normal Color Warm/Dry Results Lab Microbiology 04/14/16 Blood Culture - Preliminary, Resulted No growth Assessment/Plan Assessment/Plan Assess & Plan/Chief Complaint 1. Right Facial Pain with History of Recurrent Shingles of Right Face and Eye-- continue IV acyclovir, will get SS to see about outpatient 2. Right Parotitis--improving, continue current meds Diagnosis/Problems: Clinical Quality Measures DVT/VTE Risk/Contraindication: Risk Factor Score Per Nursin RFS Level Per Nursing on Admit: 2=Moderate ABELARDO CASE DO Apr 18, 2016 5:57 pm
[2016-04-18] MEDS: AMITRIPTYLINE 50 MG (ELAVIL) TAB PO SCH (20:57)
[2016-04-19] VITALS: BP 120/78
[2016-04-19] MEDS: ACYCLOVIR 800 MG/NS 250 ML IVPB IV SCH ×4 (00:50→09:29)
[2016-04-19] MEDS: fentaNYL INJECTION 100 MCG/2 ML AMP IV PRN ×6 (00:55→21:49)
[2016-04-19] MEDS ORDERED: predniSONE 10 MG TAB PO SCH (07:00)
[2016-04-19 08:00] VITALS: BP 129/83
[2016-04-19] MEDS: cefTRIAXone INJECTION 1,000 MG in NS (IVPB) 50 ML IV SCH (09:28)
[2016-04-19] MEDS: VITAMIN D3 5,000 UNITS (CHOLECALCIFEROL ) CAPSULE PO SCH (09:29)
[2016-04-19] MEDS: ARTIFICAL TEARS 0.4 ML UNIT DOSE (REFRESH PLUS) OD SCH ×4 (09:29→20:45)
[2016-04-19] MEDS: diphenhydrAMINE 25 MG TAB (BENADRYL) PO PRN ×2 (09:30→17:50)
[2016-04-19] MEDS: DULoxetine 30 MG (CYMBALTA) CAP PO SCH (09:30)
[2016-04-19] MEDS ORDERED: ACETAMINOPHEN 500 MG TAB (TYLENOL) PO PRN (13:30)
[2016-04-19] MEDS ORDERED: NAPROXEN 250 MG (NAPROSYN) TABLET PO NR (13:30)
[2016-04-19] MEDS: hydrOXYzine (VISTARIL) 25 MG CAP PO PRN ×2 (13:51→20:49)
[2016-04-19 16:00] VITALS: BP 143/92
[2016-04-19] MEDS ORDERED: CALAMINE LOTION 6 OZ. BOTTLE TP PRN (16:00)
--- NOTE | 2016-04-19 16:09 | Progress Note-Standard ---
Standard Progress Note Progress Notes/Assess & Plan Progress/Assessment & Plan 45 year old female with history of metastatic melanoma and recurrent right facial herpes viral infection, admitted with flare up of right facial pain, swelling and breakout. Currently on Acyclovir IV D # 6. Patient had an episode of increased pain, tingling and warm sensation on the right side of face and right eye earlier today. No breakout of skin lesions. Needed pain medications few times today. Appetite good and eating well. Bowels soft and no diarrhea. PICC line functioning well. Continue current treatments. we will switch IV acyclovir 2 by mouth today because of for symptoms. I will obtain a swing bed evaluation for continued IV medications. MARYSE VIVAS Apr 19, 2016 16:09
--- NOTE | 2016-04-19 17:26 | Progress Note (SOAP) ---
Subjective Subjective/Events-last exam Fwup right facial pain with history of recurrent herpes zoster, right parotitis. C/O more burning pain today going into ear. Objective Exam Vital Signs Date Time Temp Pulse Resp B/P Pulse Ox O2 Delivery O2 Flow Rate FiO2 04/19/16 16:00 96.7 95 20 143/92 100 Room Air 04/19/16 08:00 96.5 97 20 129/83 98 Room Air 04/19/16 00:00 97.7 99 20 120/78 98 Room Air 04/18/16 20:55 Room Air I & O 04/19/16 07:00 Intake Total 2912 ml Output Total 3450 ml Balance -538 ml Capillary Refill : Less Than 3 Seconds General Appearance: No Apparent Distress Neck: Supple Neurologic/Psychiatric: Alert Oriented x3 Skin: Normal Color Warm/Dry Lymphatic: No Adenopathy Results Lab Microbiology 04/14/16 Blood Culture - Final, Complete No growth Assessment/Plan Assessment/Plan Assess & Plan/Chief Complaint 1. Right Facial Pain with History of Recurrent Shingles of Right Face and Eye-- continue IV acyclovir but increase dose, will get SS to see about outpatient IV acyclovir 2. Right Parotitis--improving, DC prednisone and Rocephin Diagnosis/Problems: Clinical Quality Measures DVT/VTE Risk/Contraindication: Risk Factor Score Per Nursin RFS Level Per Nursing on Admit: 2=Moderate ABELARDO CASE DO Apr 19, 2016 5:26 pm
[2016-04-19] MEDS: ACYCLOVIR INJECTION 800 MG in NS (IVPB) 250 ML IV SCH ×2 (18:32→23:21)
[2016-04-19] MEDS: AMITRIPTYLINE 50 MG (ELAVIL) TAB PO SCH (20:45)
[2016-04-19] MEDS: NAPROXEN 250 MG (NAPROSYN) TABLET PO SCH (20:50)
[2016-04-20] VITALS: BP 128/65
[2016-04-20] MEDS: diphenhydrAMINE 25 MG TAB (BENADRYL) PO PRN ×2 (00:33→11:48)
[2016-04-20] MEDS: hydrOXYzine (VISTARIL) 25 MG CAP PO PRN (06:15)
[2016-04-20] MEDS: ACYCLOVIR INJECTION 800 MG in NS (IVPB) 250 ML IV SCH (06:15)
[2016-04-20] MEDS: NAPROXEN 250 MG (NAPROSYN) TABLET PO SCH (06:15)
[2016-04-20] MEDS: fentaNYL INJECTION 100 MCG/2 ML AMP IV PRN ×2 (06:16→11:49)
[2016-04-20 08:00] VITALS: BP 109/51
[2016-04-20] MEDS: ARTIFICAL TEARS 0.4 ML UNIT DOSE (REFRESH PLUS) OD SCH ×2 (09:10→14:21)
[2016-04-20] MEDS: VITAMIN D3 5,000 UNITS (CHOLECALCIFEROL ) CAPSULE PO SCH (09:10)
[2016-04-20] MEDS: DULoxetine 30 MG (CYMBALTA) CAP PO SCH (09:10)
--- NOTE | 2016-04-20 12:35 | Progress Note (SOAP) ---
Subjective Subjective/Events-last exam Fwup right facial pain with history of recurrent herpes zoster, right parotitis. Patient afraid to switch to orals due to ongoing pain in right face and ear. Objective Exam Vital Signs Date Time Temp Pulse Resp B/P Pulse Ox O2 Delivery O2 Flow Rate FiO2 04/20/16 08:00 96.0 92 20 109/51 97 Room Air 04/20/16 07:54 Room Air 04/20/16 00:00 96.7 95 20 128/65 98 Room Air 04/19/16 20:50 Room Air 04/19/16 16:00 96.7 95 20 143/92 100 Room Air I & O 04/20/16 07:00 Intake Total 3712 ml Output Total 4000 ml Balance -288 ml Capillary Refill : Less Than 3 Seconds General Appearance: No Apparent Distress Neck: Supple Neurologic/Psychiatric: Alert Oriented x3 Skin: Normal Color Warm/Dry Results Lab Microbiology 04/14/16 Blood Culture - Final, Complete No growth Assessment/Plan Assessment/Plan Assess & Plan/Chief Complaint 1. Right Facial Pain with History of Recurrent Shingles of Right Face and Eye-- continue IV acyclovir , will get SS to see about outpatient IV acyclovir vs SWING bed 2. Right Parotitis--improved, DCed prednisone and Rocephin Diagnosis/Problems: Clinical Quality Measures DVT/VTE Risk/Contraindication: Risk Factor Score Per Nursin RFS Level Per Nursing on Admit: 2=Moderate ABELARDO CASE DO Apr 20, 2016 12:35 pm
[2016-04-20] MEDS ORDERED: diphenhydrAMINE 25 MG TAB (BENADRYL) PO PRN (14:00)
[2016-04-20] MEDS ORDERED: hydrOXYzine (VISTARIL) 25 MG CAP PO PRN (14:00)
[2016-04-20] MEDS ORDERED: ACYCLOVIR INJECTION 800 MG in NS (IVPB) 250 ML IV SCH (14:00)
--- NOTE | 2016-04-21 14:13 | DISCHARGE SUMMARY ---
DATE OF ADMISSION: 04/13/2016 DATE OF DISCHARGE TO SWING BED STATUS: 04/20/2016 FINAL DIAGNOSES: 1. Recurrent herpes zoster involving the right side of the face. 2. History of stage IV melanoma, status post radical right neck dissection and supraclavicular lymph node dissection followed by radiation therapy. 3. Lymphedema of right side of face due to above. 4. Uncontrolled pain because of number 1. Ms. Marshall is a 45-year-old female with history of stage IV melanoma who has undergone right radical neck dissection and supraclavicular lymph node dissection in the past with radiation therapy. She has had recurrent herpes infections of the right side of the face which cause significant swelling, pain and lymphedema. On 04/13/2016 she presented to the emergency room without recurrence of symptoms, in spite of being on treatment doses of acyclovir on an outpatient basis for more than a day and it was decided to admit her for IV acyclovir therapy. She was started on 10 mg/kg gram IV every 8 hours, along with the pain medications. At the time of presentation to the emergency room, she was complaining of right eye pain and ophthalmologic evaluation was done with no definite involvement of the right eye. Medical consultation was obtained with Dr. Flor for concurrent medical management who felt that the patient has some parotitis too and an antibiotic as well as low-dose steroid was started. She has had a waxing and waning course during the first few days, but has improved gradually. On 04/20/2016, it was decided to discharge her to swing bed status for continuation of IV acyclovir as well as pain control. She will continue acyclovir at 10 mg/kg IV every 8 hours and IV fentanyl for pain control. She will continue the rest of the medications as ordered including topical calamine lotion for comfort. She will increase her activity level as tolerated and if she is stable, we will discharge her by early next week. Job ID: [id number] Dictated Date: 04/20/2016 17:07:35 Baggage Checker Date: 04/21/2016 14:07:12/emre PINO
== END 2016-04-20 16:15 | disposition swing bed (61) | DRG 596 ==
LOC: EDUNIT# 22:50 → ER 22:51 → 4TH 04-14 01:15
PROVIDERS: ADMIT Internal Medicine Hematology & Oncology; ATTEND Internal Medicine Hematology & Oncology
PROC: 02HV33Z Insertion of Infusion Device into Superior Vena Cava, Percutaneous Approach (ICD-10-PCS; principal; 2016-04-17)
DX: B02.9 Zoster without complications (principal); B00.9 Herpesviral infection, unspecified; H20.9 Unspecified iridocyclitis; Z85.820 Personal history of malignant melanoma of skin; K21.9 Gastro-esophageal reflux disease without esophagitis; M79.7 Fibromyalgia; F32.9 Major depressive disorder, single episode, unspecified; F41.9 Anxiety disorder, unspecified; K11.20 Sialoadenitis, unspecified
CPT/HCPCS: 36415; 36569; 71010; 76937; 80048; 80053; 83605; 85025; 86141; 87040; 96374; 96375; 96376

== ENCOUNTER 2016-04-20 15:10 | Inpatient (IN) | payer BC, MEDICARE ==
[~2016-04-20] VITALS: Ht 162.6 cm; Wt 91.8 kg
[~2016-04-20 15:10] MED LIST changes: +ACYC200C PO; +ACYC400T PO; +AMIT50TA3 PO; +CHOL500050 PO; +DULO60CA58 PO
[2016-04-20 15:47] VITALS: BP 119/79
[2016-04-20] MEDS ORDERED: CALAMINE LOTION 6 OZ. BOTTLE TP PRN (16:30)
[2016-04-20] MEDS ORDERED: PATIENT MAY USE OWN MEDS, ALL MC SCH (16:30)
[2016-04-20] MEDS ORDERED: ONDANSETRON 4 MG/2 ML (SDV) Z0FRAN IV PRN (16:30)
[2016-04-20] MEDS ORDERED: ACETAMINOPHEN 500 MG TAB (TYLENOL) PO PRN (16:30)
--- OUTSIDE RECORDS SUMMARY | 2016-04-20 16:36 | XMS REPORT | Continuity of Care Document ---
Author Author [facility] Organization [facility] Address Unknown Phone Unavailable Care Team Providers Care [facility] Lead Lineman Name Role Phone Ammon Griffith PCP [phone] Source Comments Some departments are not documenting in the electronic medical record. If you do not see the information that you expected, contact Release of Information in the Health Information Management department at [phone] for further assistance in locating additional records.[facility] Active Allergies and Adverse Reactions Allergen Noted [...]
[2016-04-20] MEDS: NAPROXEN 250 MG (NAPROSYN) TABLET PO SCH (17:42)
[2016-04-20] MEDS: fentaNYL INJECTION 100 MCG/2 ML AMP IV PRN ×2 (17:43→20:19)
[2016-04-20] MEDS: AMITRIPTYLINE 50 MG (ELAVIL) TAB PO SCH (20:11)
[2016-04-20] MEDS: ACYCLOVIR INJECTION 800 MG in NS (IVPB) 250 ML IV SCH (21:26)
[2016-04-20] MEDS: hydrOXYzine (VISTARIL) 25 MG CAP PO PRN (23:09)
[2016-04-20] MEDS: diphenhydrAMINE 25 MG TAB (BENADRYL) PO PRN (23:09)
[2016-04-21] MEDS: fentaNYL INJECTION 100 MCG/2 ML AMP IV PRN ×4 (01:51→21:16)
[2016-04-21] MEDS: ACYCLOVIR INJECTION 800 MG in NS (IVPB) 250 ML IV SCH ×3 (05:41→21:28)
[2016-04-21] MEDS: diphenhydrAMINE 25 MG TAB (BENADRYL) PO PRN ×3 (05:41→23:58)
[2016-04-21 06:00] VITALS: BP 101/49
[2016-04-21] MEDS: NAPROXEN 250 MG (NAPROSYN) TABLET PO SCH ×2 (06:25→18:04)
[2016-04-21] MEDS: VITAMIN D3 5,000 UNITS (CHOLECALCIFEROL ) CAPSULE PO SCH (08:12)
[2016-04-21] MEDS: DULoxetine 30 MG (CYMBALTA) CAP PO SCH (08:12)
[2016-04-21] MEDS: hydrOXYzine (VISTARIL) 25 MG CAP PO PRN ×2 (08:15→21:16)
[2016-04-21 08:51] VITALS: BP 106/66
--- NOTE | 2016-04-21 11:59 | Progress Note (SOAP) ---
Subjective Subjective/Events-last exam Fwup right facial pain with history of recurrent herpes zoster, right parotitis. Doing better. Pain not as bad. Objective Exam Vital Signs Date Time Temp Pulse Resp B/P Pulse Ox O2 Delivery O2 Flow Rate FiO2 04/21/16 08:51 97.2 97 18 106/66 98 Room Air 04/21/16 06:00 96.7 88 19 101/49 98 Room Air 04/20/16 15:47 96.8 97 16 119/79 100 I & O 04/21/16 07:00 Intake Total 3030 ml Output Total 2400 ml Balance 630 ml Capillary Refill : General Appearance: No Apparent Distress Neck: Non Tender Supple Neurologic/Psychiatric: Alert Oriented x3 Skin: Normal Color Assessment/Plan Assessment/Plan Assess & Plan/Chief Complaint 1. Right Facial Pain with History of Recurrent Shingles of Right Face and Eye-- continue IV acyclovir , now on SWING bed 2. Right Parotitis--improved, DCed prednisone and Rocephin ABELARDO CASE DO Apr 21, 2016 11:59
[2016-04-21 12:00] VITALS: BP 110/56
--- NOTE | 2016-04-21 14:49 | Progress Note-Standard ---
Standard Progress Note Progress Notes/Assess & Plan Progress/Assessment & Plan 45-year-old female with history of stage IV malignant melanoma, status post radical right neck dissection and radiation therapy followed by interferon therapy times one year. Solitary abdominal wall metastasis diagnosed within 3 months of completion of treatment, status post wide resection. The patient has had no evidence of recurrent disease for more than 10 years. 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 Recently she had a flareup with significant right-sided facial pain and burning as well as right IV pain and was admitted to the hospital for IV antiviral therapy. She had an ophthalmology evaluation with no obvious lesions in the right eye. She was started on acyclovir at 10 mg/kg every 8 hours and is tolerating this well. Her symptoms are still waxing and waning but the gradually improving. Few small lesions noted on the right side of the face and the right infraorbital area. She denied any other symptoms. Her appetite is good. Activity level is limited because of the discomfort but stable. No diarrhea, constipation, hematochezia or melena. No chest pain, palpitations, orthopnea or PND. On low-dose steroids as well as antibiotics because of the possible parotitis. Currently on swing bed status for continued IV acyclovir. Continue current treatment. Dr. Burton covering this weekend. MARYSE VIVAS Apr 21, 2016 14:49
[2016-04-21 18:10] VITALS: BP 123/61
[2016-04-21] MEDS: AMITRIPTYLINE 50 MG (ELAVIL) TAB PO SCH (21:07)
[2016-04-22 06:00] VITALS: BP 112/73
[2016-04-22] MEDS: ACYCLOVIR INJECTION 800 MG in NS (IVPB) 250 ML IV SCH ×3 (06:12→21:51)
[2016-04-22] MEDS: NAPROXEN 250 MG (NAPROSYN) TABLET PO SCH ×2 (06:12→17:49)
[2016-04-22] MEDS: DULoxetine 30 MG (CYMBALTA) CAP PO SCH (09:04)
[2016-04-22] MEDS: VITAMIN D3 5,000 UNITS (CHOLECALCIFEROL ) CAPSULE PO SCH (09:04)
[2016-04-22] MEDS: hydrOXYzine (VISTARIL) 25 MG CAP PO PRN ×2 (09:08→23:44)
--- NOTE | 2016-04-22 12:21 | Physician Progress Note ---
Progress Note Assessment/Plan Events since last exam No new lesions. Old lesions fading away. No new issues. On IV Acyclovir Assessment/Plan 1. Right Facial Pain with History of Recurrent Shingles of Right Face and Eye-- continue IV acyclovir till Sunday. 2. Right Parotitis--improved, DCed prednisone and Rocephin 3. Melanoma, stable no active issues right now. Vitals Last set of Vitals Signs Vital Signs Date Time Temp Pulse Resp B/P Pulse Ox O2 Delivery O2 Flow Rate FiO2 04/22/16 06:00 96.4 93 20 112/73 97 Room Air I&O I&O Intake and Output 04/22/16 00:00 Intake Total 3480 ml Output Total 4800 ml Balance -1320 ml Intake Oral 2960 ml IV Total 520 ml Output Urine Total 4800 ml # Voids 3 JAYJAY LICONA MD Apr 22, 2016 12:21
[2016-04-22] MEDS: fentaNYL INJECTION 100 MCG/2 ML AMP IV PRN ×4 (13:44→23:44)
[2016-04-22] MEDS: diphenhydrAMINE 25 MG TAB (BENADRYL) PO PRN ×2 (13:44→20:35)
[2016-04-22] MEDS: CATHETER FLUSH 10 ML SYR IV PRN (17:53)
[2016-04-22 18:00] VITALS: BP 110/63
[2016-04-22] MEDS: AMITRIPTYLINE 50 MG (ELAVIL) TAB PO SCH (20:32)
[2016-04-23] MEDS: fentaNYL INJECTION 100 MCG/2 ML AMP IV PRN ×4 (02:08→21:32)
[2016-04-23] MEDS: diphenhydrAMINE 25 MG TAB (BENADRYL) PO PRN ×3 (02:12→21:31)
[2016-04-23 06:00] VITALS: BP 99/65
[2016-04-23] MEDS: NAPROXEN 250 MG (NAPROSYN) TABLET PO SCH ×2 (06:06→17:30)
[2016-04-23] MEDS: ACYCLOVIR INJECTION 800 MG in NS (IVPB) 250 ML IV SCH ×3 (06:06→21:33)
[2016-04-23] MEDS: VITAMIN D3 5,000 UNITS (CHOLECALCIFEROL ) CAPSULE PO SCH (08:23)
[2016-04-23] MEDS: DULoxetine 30 MG (CYMBALTA) CAP PO SCH (08:23)
[2016-04-23 18:00] VITALS: BP 120/78
--- NOTE | 2016-04-23 18:34 | Physician Progress Note ---
Progress Note Assessment/Plan Events since last exam No more new lesions. Old lesions fading way Wants to go home tomorrow Assessment/Plan 1. Right Facial Pain with History of Recurrent Shingles of Right Face and Eye-- continue IV acyclovir till Sunday. 2. Right Parotitis--improved, DCed prednisone and Rocephin 3. Melanoma, stable no active issues right now. Vitals Last set of Vitals Signs Vital Signs Date Time Temp Pulse Resp B/P Pulse Ox O2 Delivery O2 Flow Rate FiO2 04/23/16 06:00 97.9 95 20 99/65 98 Room Air I&O I&O Intake and Output 04/23/16 00:00 Intake Total 2300 ml Output Total 4200 ml Balance -1900 ml Intake Oral 1540 ml IV Total 760 ml Output Urine Total 4200 ml # Bowel Movements 1 JAYJAY LICONA MD Apr 23, 2016 18:34
[2016-04-23] MEDS: AMITRIPTYLINE 50 MG (ELAVIL) TAB PO SCH (21:31)
[2016-04-24] MEDS: ACYCLOVIR INJECTION 800 MG in NS (IVPB) 250 ML IV SCH (05:28)
[2016-04-24 06:00] VITALS: BP 113/62
[2016-04-24] MEDS: NAPROXEN 250 MG (NAPROSYN) TABLET PO SCH ×2 (06:34→16:32)
[2016-04-24] MEDS: VITAMIN D3 5,000 UNITS (CHOLECALCIFEROL ) CAPSULE PO SCH (08:35)
[2016-04-24] MEDS: DULoxetine 30 MG (CYMBALTA) CAP PO SCH (08:35)
[2016-04-24] MEDS: ACYCLOVIR 400 MG TABLET (ZOVIRAX) PO SCH ×4 (09:57→20:22)
[2016-04-24] MEDS: diphenhydrAMINE 25 MG TAB (BENADRYL) PO PRN (14:44)
[2016-04-24] MEDS: CATHETER FLUSH 10 ML SYR IV PRN ×2 (14:44→20:22)
[2016-04-24] MEDS: fentaNYL INJECTION 100 MCG/2 ML AMP IV PRN ×3 (14:44→20:22)
[2016-04-24] MEDS: hydrOXYzine (VISTARIL) 25 MG CAP PO PRN (16:32)
--- NOTE | 2016-04-24 17:04 | Progress Note-Standard ---
Standard Progress Note Progress Notes/Assess & Plan Progress/Assessment & Plan 45-year-old female with history of stage IV malignant melanoma, status post radical right neck dissection and radiation therapy followed by interferon therapy times one year. Solitary abdominal wall metastasis diagnosed within 3 months of completion of treatment, status post wide resection. The patient has had no evidence of recurrent disease for more than 10 years. 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 Recently she had a flareup with significant right-sided facial pain and burning as well as right IV pain and was admitted to the hospital for IV antiviral therapy. She had an ophthalmology evaluation with no obvious lesions in the right eye. She was started on acyclovir at 10 mg/kg every 8 hours and was feeling well over the weekend. IV Acyclovir was d/c'd and oral regimen started today AM. She c/o pain and tightness on the right side of face this afternoon. On examination there are no new skin lesions noted. Other than baseline slight asymmetry of the face no significant swelling noted. Her appetite is good. Activity level is limited but stable. No diarrhea, constipation, hematochezia or melena. No chest pain, palpitations, orthopnea or PND. On low-dose steroids as well as antibiotics because of the possible parotitis. I will continue the oral acyclovir regimen for tonight and reevaluate her tomorrow. If she is having new lesions, we may have to restart the IV acyclovir again. No pain in the right eye or visual symptoms. MARYSE VIVAS Apr 24, 2016 5:04 pm
[2016-04-24 17:55] VITALS: BP 148/84
--- NOTE | 2016-04-24 18:34 | Progress Note (SOAP) ---
Subjective Subjective/Events-last exam Fwup right facial pain with history of recurrent herpes zoster, right parotitis. Had a good weekend. Pain much improved. Objective Exam Vital Signs Date Time Temp Pulse Resp B/P Pulse Ox O2 Delivery O2 Flow Rate FiO2 04/24/16 06:00 96.9 80 18 113/62 96 Room Air I & O 04/24/16 07:00 Intake Total 3512 ml Output Total 4300 ml Balance -788 ml Capillary Refill : Less Than 3 Seconds General Appearance: No Apparent Distress Neck: Normal Inspection Non Tender Supple Neurologic/Psychiatric: Alert Oriented x3 Skin: Normal Color Warm/Dry Lymphatic: No Adenopathy Assessment/Plan Assessment/Plan Assess & Plan/Chief Complaint 1. Right Facial Pain with History of Recurrent Shingles of Right Face and Eye-- switch to oral acyclovir 2. Right Parotitis--improved, DCed prednisone and Rocephin ABELARDO CASE DO Apr 24, 2016 18:34
[2016-04-24] MEDS: AMITRIPTYLINE 50 MG (ELAVIL) TAB PO SCH (20:22)
[2016-04-25] MEDS: fentaNYL INJECTION 100 MCG/2 ML AMP IV PRN ×2 (00:04→14:55)
[2016-04-25] MEDS: diphenhydrAMINE 25 MG TAB (BENADRYL) PO PRN ×2 (00:04→13:01)
[2016-04-25] MEDS: CATHETER FLUSH 10 ML SYR IV PRN (00:04)
[2016-04-25 05:00] VITALS: BP 114/55
[2016-04-25] MEDS: ACYCLOVIR 400 MG TABLET (ZOVIRAX) PO SCH ×3 (05:56→12:51)
[2016-04-25] MEDS: NAPROXEN 250 MG (NAPROSYN) TABLET PO SCH (05:57)
[2016-04-25 06:06] LABS: BASOPHILS % (AUTO) 0 % (0-10); EOSINOPHILS # (AUTO) 0.3 10^3/uL (0.0-0.3); EOSINOPHILS % (AUTO) 3 % (0-10); LYMPHOCYTES # (AUTO) 1.8 X 10^3 (1.0-4.0); LYMPHOCYTES % (AUTO) 24 % (12-44); MEAN CORPUSCULAR HEMOGLOBIN 32 PG (25-34); MEAN CORPUSCULAR HGB CONC 34 G/DL (32-36); MEAN CORPUSCULAR VOLUME 92 FL (80-99); MEAN PLATELET VOLUME 8.5 FL (7.4-10.4); MONOCYTES # (AUTO) 0.6 X 10^3 (0.0-1.0); MONOCYTES % (AUTO) 8 % (0-12); NEUTROPHILS % (AUTO) 65 % (42-75); PLATELET COUNT 227 10^3/uL (130-400); RED BLOOD COUNT 4.27 10^6/uL (4.35-5.85); RED CELL DISTRIBUTION WIDTH 12.7 % (10.0-14.5); WHITE BLOOD COUNT 7.7 10^3/uL (4.3-11.0)
[2016-04-25 06:53] LABS: ANION GAP 13 MMOL/L (5-14); BLOOD UREA NITROGEN 11 MG/DL (7-18); BUN/CREATININE RATIO 15; CALCIUM 9.3 MG/DL (8.5-10.1); CARBON DIOXIDE 22 MMOL/L (21-32); CHLORIDE 102 MMOL/L (98-107); CREATININE SERUM 0.74 MG/DL (0.60-1.30); GFR ESTIMATED > 60; GLUCOSE 85 MG/DL (70-105); POTASSIUM 4.2 MMOL/L (3.6-5.0); SODIUM 137 MMOL/L (135-145)
--- NOTE | 2016-04-25 09:21 | Progress Note (SOAP) ---
Subjective Subjective/Events-last exam Fwup right facial pain with history of recurrent herpes zoster, right parotitis. Had some pain yesterday afternoon but better this AM. Objective Exam Vital Signs Date Time Temp Pulse Resp B/P Pulse Ox O2 Delivery O2 Flow Rate FiO2 04/25/16 05:00 97.3 94 16 114/55 98 Room Air 04/24/16 17:55 97.5 111 18 148/84 97 Room Air I & O 04/25/16 07:00 Intake Total 3410 ml Output Total 4500 ml Balance -1090 ml Capillary Refill : Less Than 3 Seconds General Appearance: No Apparent Distress Neck: Normal Inspection Non Tender Supple Neurologic/Psychiatric: Alert Oriented x3 Skin: Normal Color Warm/Dry Results Lab Laboratory Tests 04/25/16 06:00: Anion Gap 13, BUN/Creatinine Ratio 15, Basophils # (Auto) 0.0, Basophils (%) ( Auto) 0, Blood Urea Nitrogen 11, Calcium Level 9.3, Carbon Dioxide Level 22, Chloride Level 102, Creatinine 0.74, Eosinophils # (Auto) 0.3, Eosinophils (%) ( Auto) 3, Estimat Glomerular Filtration Rate > 60, Glucose Level 85, Hematocrit 39, Hemoglobin 13.5, Lymphocytes # (Auto) 1.8, Lymphocytes (%) (Auto) 24, Mean Corpuscular Hemoglobin 32, Mean Corpuscular Hemoglobin Concent 34, Mean Corpuscular Volume 92, Mean Platelet Volume 8.5, Monocytes # (Auto) 0.6, Monocytes (%) (Auto) 8, Neutrophils # (Auto) 5.0, Neutrophils (%) (Auto) 65, Platelet Count 227, Potassium Level 4.2, Red Blood Count 4.27L, Red Cell Distribution Width 12.7, Sodium Level 137, White Blood Count 7.7 Assessment/Plan Assessment/Plan Assess & Plan/Chief Complaint 1. Right Facial Pain with History of Recurrent Shingles of Right Face and Eye-- continue with oral acyclovir and see how does today 2. Right Parotitis--improved, DCed prednisone and ABELARDO Taylor DO Apr 25, 2016 9:21 am
[2016-04-25] MEDS: VITAMIN D3 5,000 UNITS (CHOLECALCIFEROL ) CAPSULE PO SCH (09:56)
[2016-04-25] MEDS: DULoxetine 30 MG (CYMBALTA) CAP PO SCH (09:56)
--- NOTE | 2016-04-25 16:48 | Discharge Inst-Simple/Standard ---
Discharge Inst-Standard Discharge Medications New, Converted or Re-Newed RX: Other Patient Instructions/Follow Up Plan of Care/Instructions/FU: F/U with Dr. Flor in 4 weeks. Pt to call for appointment. F/U at the cancer center on 10/09/2016 at 1030 hrs as scheduled. Activity as Tolerated: Yes Discharge Diet: No Restrictions MARYSE VIVAS Apr 25, 2016 16:48
[2016-04-25 17:30] VITALS: BP 120/60
--- NOTE | 2016-04-27 11:27 | DISCHARGE SUMMARY ---
DATE OF ADMISSION TO SWING BED STATUS: 04/20/2016 DATE OF DISCHARGE: 04/25/2016 FINAL DIAGNOSES: 1. Recurrent herpes zoster of right trigeminal nerve with questionable ophthalmic involvement. 2. History of metastatic melanoma. 3. Status post right radical neck dissection and radiation therapy in the past. Ms. Marshall is a 45-year-old female with a history of metastatic melanoma in the past. She required right radical neck dissection for lymph node involvement and radiation therapy. Following this she has had problems with right facial lymphedema. She also developed herpes zoster infection involving the right trigeminal nerve and has had recurrent flare ups. The patient was admitted to the hospital this time because of right-sided facial pain and right eye pain and was started on IV acyclovir 10 mg/kg every 8 hours. She has had an ophthalmology evaluation with Dr. Warren and there was no obvious lesions in the eye. Because of the pain it was recommended to continue IV acyclovir. Medicine consultation was obtained with Dr. Flor for concurrent care who felt the patient may have some parotitis too and was started on steroids as well as IV antibiotics with Rocephin. Steroids were gradually weaned. As the patient was on oral steroids, ophthalmology did not recommend steroid eye drops. She was placed in swing bed status on 04/20/2016 for continuation of IV acyclovir which was continued for 10 days. She has had intermittent symptoms of pain, neuropathy and swelling of the right side of the face and was placed on IV fentanyl as needed and initially on IV Toradol, which was changed to oral Naprosyn. Her symptoms gradually improved. She was also instructed to use calamine lotion topically to control the burning pain. Eventually on 04/24/2016 IV acyclovir was discontinued and she was started on acyclovir 800 mg p.o. 5 times a day and was observed for 24 hours. She tolerated this well without flare-up of her symptoms and on 04/25/2016 it was decided to discharge her home with her home medications, which include amitriptyline 50 mg at bedtime, vitamin D 5000 units daily. Cymbalta 60 mg daily, acyclovir 800 mg 5 times a day for four more days and then 400 mg twice daily as a maintenance dose. She will continue to use calamine lotion topically for any symptoms. If she is having any new or unusual symptoms, she was instructed to contact us or come to the emergency room. She is to follow-up with Dr. Flor in approximately 4 weeks and to call for appointment. She will follow up at the Cancer Center on 10/09/2016 at 10:30 a.m. as scheduled. Job ID: [id number] Dictated Date: 04/25/2016 16:57:42 Composite Boat Builder Date: 04/26/2016 13:22:06/sim PINO
== END 2016-04-25 17:30 | disposition home or self-care (01) | DRG 596 ==
LOC: 4TH 16:15
PROVIDERS: ADMIT Internal Medicine Hematology & Oncology; ATTEND Internal Medicine Hematology & Oncology
DX: B02.9 Zoster without complications (principal); B00.9 Herpesviral infection, unspecified; H20.9 Unspecified iridocyclitis; Z85.820 Personal history of malignant melanoma of skin; K21.9 Gastro-esophageal reflux disease without esophagitis; M79.7 Fibromyalgia; F32.9 Major depressive disorder, single episode, unspecified; F41.9 Anxiety disorder, unspecified; K11.20 Sialoadenitis, unspecified
CPT/HCPCS: 36415; 80048; 85025

== ENCOUNTER 2016-09-13 13:53 | Inpatient (IN) | payer BC, MEDICARE ==
[~2016-09-13] VITALS: Ht 162.6 cm; Wt 94.1 kg
[2016-09-13] MEDS ORDERED: fentaNYL INJECTION 100 MCG/2 ML AMP IVP STA (14:36)
[2016-09-13] MEDS ORDERED: NS IV 1000 ML 1,000 ML IV ONE (14:36)
[2016-09-13] MEDS ORDERED: diphenhydrAMINE 50 MG/ML INJ (BENADRYL) IV STA (14:36)
--- NOTE | 2016-09-13 14:44 | ED Integumentary General ---
General Chief Complaint: Skin/Wound Problems Stated Complaint: BLISTERS ON FACE REFERRED BY ONCOLOGIST Source: patient Exam Limitations: no limitations History of Present Illness Time seen by provider: 14:25 Initial Comments Here with report of blisters and skin eruptions to the right side of her face from her nose to her ear and below her chin. Has history of viral lesions consistent with shingles outbreak of herpes zoster. Patient has history of melanoma and radical lymph node dissection in the neck. She gets significant shingles outbreak on the face and has included the eye previously. She's had previous admissions for similar presentation including most recently last March. She called her oncologist who instructed her to come to the hospital. Patient has been on acyclovir throughout this time and has increased to 5 times a day and is not having improvement. She has history of failed outpatient oral therapy and appears to be failing outpatient oral therapy this time as well. Timing/Duration: week, getting worse Severity: moderate Location: face Associated Symptoms: blisters, change in skin texture, edema, tingling, other ( burning sensation and pain to the face on the right side) Allergies and Home Medications Allergies Coded Allergies: promethazine (Verified Allergy, Unknown, 04/13/16) vancomycin (Unverified Allergy, Unknown, RASH, 02/03/14) reacted to iv vancomycin in cancer center on 01/21 Home Medications Acyclovir 200 Mg Capsule, 400 MG PO BID, (Reported) TAKES 2 (200 MG) CAPSULES / MAINTENANCE DOSE Acyclovir 400 Mg Tablet, 800 MG PO 5XD for 10 Days, (Reported) FILLED 04/12/16 #100 FOR A 10 DAY THERAPY / TAKES 2 (400 MG) TABLETS Amitriptyline HCl 50 Mg Tablet, 50 MG PO HS, (Reported) Cholecalciferol (Vitamin D3) 5,000 Unit Capsule, 5,000 UNIT PO DAILY, (Reported) Duloxetine HCl 60 Mg Capsule.dr, 60 MG PO DAILY, (Reported) Constitutional: see HPI, No chills, No fever EENTM: eye pain, other (blisters and lesion on face), see HPI Respiratory: no symptoms reported Cardiovascular: no symptoms reported Gastrointestinal: no symptoms reported, No nausea, No vomiting Genitourinary: no symptoms reported Musculoskeletal: no symptoms reported Skin: see HPI, change in color, hx of skin cancer, lesions, rash Psychiatric/Neurological: See HPI, Tingling, Other (burning sensation on his skin of face on the right side) Past Xuwclxx-Jdouhv-Pjhmch Hx Patient Social History Alcohol Use: Rarely Uses Recreational Drug Use: No Smoking Status: Never a Smoker 2nd Hand Smoke Exposure: No Recent Foreign Travel: No Contact w/Someone Who Travel: No Recent Hopitalizations: Yes Immunizations Up To Date Tetanus Booster (TDap): Unknown Seasonal Allergies Seasonal Allergies: No Surgeries HX Surgeries: Yes (2 c sections,tumor removed from abd, neck sx, EGD, Bladder resection) Surgeries: Section, Gallbladder, Hysterectomy Respiratory Hx Respiratory Disorders: No Cardiovascular Hx Cardiac Disorders: No Neurological Hx Neurological Disorders: Yes Neurological Disorders: Headaches /Migraines Reproductive System Hx Reproductive Disorders: Yes (Surgeries for Ovarian cysts) Sexually Transmitted Disease: No HIV/AIDS: No Female Reproductive Disorders: Ovarian Cyst Genitourinary Hx Genitourinary Disorders: Yes (Bladder resection) Genitourinary Disorders: UTI-Chronic Gastrointestinal Hx Gastrointestinal Disorders: Yes (Chronic dysphagia) Gastrointestinal Disorders: Gastroesophageal Reflux, Esophagitis, Hiatal Hernia , Irritable Bowel Musculoskeletal Hx Musculoskeletal Disorders: Yes (radiculopathy) Musculoskeletal Disorders: Fibromyalgia Endocrine Hx Endocrine Disorders: No HEENT HX ENT Disorders: Yes HEENT Disorders: Dysphagia Loss of Vision: Denies Hearing Impairment: Denies Cancer Hx Cancer: Yes Cancer: Lymphoma, Melanoma Psychosocial Hx Psychiatric Problems: Yes Behavioral Health Disorders: Anxiety, Depression Integumentary HX Skin/Integumentary Disorder: No (Prior facial shingles in skin lining) Skin/Integumentary Disorders: Recent Skin Changes Blood Transfusions Hx Blood Disorders: No Adverse Reaction to a Blood Tr: No Reviewed Nursing Assessment Reviewed/Agree w Nursing PMH: Yes Family Medical History Significant Family History: No Pertinent Family Hx Family Medial History: Arthritis 19 MOTHER G8 SISTER Cataracts 19 MOTHER Congenital heart disease 19 FATHER (HEART DZ) Diabetes mellitus 19 FATHER Hypertension 19 FATHER Myocardial infarction 19 FATHER Respiratory disorder 19 FATHER (EMPHYSEMA) Seizure disorder G8 BROTHER (CEBERAL PALSY ALOS) Physical Exam Vital Signs Vital Sign - Last 12Hours 09/13/16 14:15 Temp 99.1 Pulse 92 Resp 16 B/P (MAP) 160/105 Pulse Ox 98 O2 Delivery Room Air Capillary Refill : General Appearance: WD/WN, no apparent distress HEENT: PERRL/EOMI, pharynx normal, other (blister type lesions to the face on the right side from the nose to the right ear and down to below chin. Sporadic. Very tender on that side of the face. There are lesion at the tip of the nose and on the external auditory canal/pinna of the right ear. Eye does not seem to be involved at this time but lesions are close.) Neck: full range of motion, supple Cardiovascular: regular rate, rhythm, no murmur Respiratory: lungs clear, normal breath sounds Gastrointestinal: non tender, soft Back: normal inspection, no CVA tenderness, no vertebral tenderness Extremities: non-tender, normal inspection Neurologic/Psychiatric: alert, oriented x 3 Skin: warm/dry, other (lesions as described above.) Skin Problem Location: face Skin Problem Character: bullous, erythema, vesicular Progress/Results/Core Measures Results/Orders My Orders Orders - OCTAVIA HERRERA MD Cbc With Automated Diff (09/13/16 14:36) Comprehensive Metabolic Panel (09/13/16 14:36) Hs C Reactive Protein (09/13/16 14:36) Erythrocyte Sedimentation Rate (09/13/16 14:36) Saline Lock/Iv-Start (09/13/16 14:36) Ns Iv 1000 Ml (Sodium Chloride 0.9%) (09/13/16 14:36) Fentanyl Injection (Sublimaze Injection (09/13/16 14:36) Diphenhydramine Injection (Benadryl Inje (09/13/16 14:36) Acyclovir Injection (Zovirax Injection) (09/13/16 14:51) Vital Signs/I&O Vital Sign - Last 12Hours 09/13/16 14:15 Temp 99.1 Pulse 92 Resp 16 B/P (MAP) 160/105 Pulse Ox 98 O2 Delivery Room Air Progress Note : Progress Note Seen and evaluated. IV, labs, normal saline 1 L bolus, fentanyl 50 g IV and Benadryl 25 mg IV ordered. Monitor patient. 1447: I did discuss the case with Dr. Griffith. He accepts patient for admission, inpatient status for IV acyclovir as patient has failed outpatient oral therapy. Acyclovir 500 mg IV ordered. I did discuss the case with Dr. Tommy Burgess, pharmacist sludge filtration attendant. Recommending a 500 mg dosing for now and pharmacy will adjust if ordered which it is. Admit, inpatient status. Departure Communication Time/Spoke to Admitting Phy: 14:47 Impression Impression: Primary Impression: Herpes zoster virus infection of face and ear nerves Disposition: ADMITTED INPATIENT Condition: Stable Decision to Admit Reason: Admit from ER (General) Decision to Admit/Date: Sep 13, 2016 Time/Decision to Admit Time: 14:47 Departure-Patient Inst. Referrals: ABELARDO CASE DO (PCP/Family) Primary Care Physician OCTAVIA HERRERA MD Sep 13, 2016 14:44
[2016-09-13] MEDS ORDERED: ACYCLOVIR INJECTION 500 MG in NS (IVPB) 100 ML IV STA (14:51)
[2016-09-13 15:51] LABS: BASOPHILS % (AUTO) 0 % (0-10); EOSINOPHILS # (AUTO) 0.2 10^3/uL (0.0-0.3); EOSINOPHILS % (AUTO) 3 % (0-10); LYMPHOCYTES # (AUTO) 1.6 X 10^3 (1.0-4.0); LYMPHOCYTES % (AUTO) 29 % (12-44); MEAN CORPUSCULAR HEMOGLOBIN 30 PG (25-34); MEAN CORPUSCULAR HGB CONC 34 G/DL (32-36); MEAN CORPUSCULAR VOLUME 90 FL (80-99); MEAN PLATELET VOLUME 8.8 FL (7.4-10.4); MONOCYTES # (AUTO) 0.5 X 10^3 (0.0-1.0); MONOCYTES % (AUTO) 9 % (0-12); NEUTROPHILS # (AUTO) 3.3 X 10^3 (1.8-7.8); NEUTROPHILS % (AUTO) 59 % (42-75); PLATELET COUNT 288 10^3/uL (130-400); RED BLOOD COUNT 4.47 10^6/uL (4.35-5.85); RED CELL DISTRIBUTION WIDTH 12.4 % (10.0-14.5); WHITE BLOOD COUNT 5.6 10^3/uL (4.3-11.0)
[2016-09-13 16:10] LABS: ERYTHROCYTE SEDIMENTATION RATE 11 MM/HR (0-20)
[2016-09-13 16:11] LABS: ALANINE AMINOTRANSFERASE 19 U/L (0-55); ANION GAP 6 MMOL/L (5-14); ASPARTATE AMINO TRANSFERASE 16 U/L (5-34); BILIRUBIN,TOTAL 0.8 MG/DL (0.1-1.0); BLOOD UREA NITROGEN 15 MG/DL (7-18); BUN/CREATININE RATIO 18; CALCIUM 9.1 MG/DL (8.5-10.1); CARBON DIOXIDE 25 MMOL/L (21-32); CHLORIDE 105 MMOL/L (98-107); CREATININE SERUM 0.82 MG/DL (0.60-1.30); GFR ESTIMATED > 60; GLUCOSE 94 MG/DL (70-105); POTASSIUM 3.9 MMOL/L (3.6-5.0); SODIUM 136 MMOL/L (135-145); TOTAL PROTEIN 6.9 GM/DL (6.4-8.2); hs C REACTIVE PROTEIN 0.28 MG/DL (0.00-0.50)
[2016-09-13 16:25] VITALS: BP 145/82
[2016-09-13] MEDS ORDERED: SODIUM CHLORIDE IV SCH ×2 (16:30)
[2016-09-13] MEDS ORDERED: ACYCLOVIR IV SCH ×2 (16:30)
[2016-09-13] MEDS ORDERED: DULO20CA18 PO (16:40)
[2016-09-13] MEDS ORDERED: CATHETER FLUSH 10 ML SYR IV PRN (16:45)
[2016-09-13 19:27] VITALS: BP 136/82
[2016-09-13] MEDS: fentaNYL INJECTION 100 MCG/2 ML AMP IV PRN ×2 (20:01→22:02)
[2016-09-13] MEDS: CALAMINE LOTION 6 OZ. BOTTLE TP PRN (20:02)
[2016-09-13] MEDS: diphenhydrAMINE 25 MG TAB (BENADRYL) PO PRN (20:02)
[2016-09-13] MEDS: GABAPENTIN 300 MG (NEURONTIN) CAP PO SCH (20:41)
[2016-09-13] MEDS: CATHETER FLUSH 10 ML SYR IV SCH (22:02)
[2016-09-14] VITALS (7 sets, daily range): BP systolic 110–145; BP diastolic 59–73
[2016-09-14] MEDS: fentaNYL INJECTION 100 MCG/2 ML AMP IV PRN ×10 (00:29→22:49)
[2016-09-14] MEDS: diphenhydrAMINE 25 MG TAB (BENADRYL) PO PRN ×4 (04:27→22:49)
[2016-09-14] MEDS: CATHETER FLUSH 10 ML SYR IV SCH ×3 (06:31→11:17)
[2016-09-14] MEDS: PANTOPRAZOLE 40 MG (PROTONIX) TAB PO SCH (06:31)
[2016-09-14] MEDS ORDERED: ACYCLOVIR IV SCH ×6 (08:00)
[2016-09-14] MEDS ORDERED: SODIUM CHLORIDE IV SCH ×6 (08:00)
[2016-09-14] MEDS: GABAPENTIN 300 MG (NEURONTIN) CAP PO SCH ×2 (08:15→20:46)
--- NOTE | 2016-09-14 11:14 | HISTORY AND PHYSICAL ---
DATE OF ADMISSION: 09/13/2016 The patient is admitted to Room 419 PRIMARY PHYSICIAN: Rosaline Flor DO. PRESENTING COMPLAINT: Pain and swelling right side of face. HISTORY OF PRESENT ILLNESS: Mrs. Marshall is a 45-year-old female with a history of malignant melanoma in the past who has had right recurrent herpes zoster of the right trigeminal nerve. She complained of tingling and burning since the last 2 or 3 days but noticed to several lesions breaking out on the right side of the face, the nostril and around her right eye and came to the emergency room today. She was evaluated in the emergency room and clinically this was consistent with recurrent herpes zoster. She was taking acyclovir 800 mg 5 times a day since the last 48 hours on an outpatient basis with no benefit. Hence, she is being admitted to the hospital for IV acyclovir as well as pain control. PAST MEDICAL HISTORY: 1. Significant for Stage III melanoma diagnosed 15 years ago with lymphadenopathy in right lower cervical and supraclavicular area. She underwent resection of this lymphadenopathy, but the primary was not identified. She also received radiation therapy to the right side of the neck at [facility]. She has received adjuvant interferon therapy for one year. Approximately 3 months after completion of adjuvant interferon therapy metastatic disease was noted on the anterior abdominal wall and she underwent a wide resection of this mass. Since then she is on surveillance and has no evidence of recurrent disease. 2. Since the last 5+ years she has had recurrent episodes of herpes viral infection involving the right side of the face and required IV antiviral therapy. She was on high doses of antiviral therapy for several months at the time of initial diagnosis. Since then she has been on suppressive therapy which has not prevented intermittent flare ups of disease. 3. Most recently she was admitted to the hospital in April 2016 with a questionable involvement of the eye which required an ophthalmology evaluation. She did not have definite involvement and was treated with IV acyclovir for a total of 10 days with improvement. 4. History of chronic sinusitis and surgical debridement at [facility] more than a year ago with evidence of MRSA and Pseudomonas infection. SOCIAL HISTORY: The patient is and lives in [place], [place]. She has a son and a stepson. 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 No history of tobacco, alcohol or recreational drug use. FAMILY HISTORY: Unremarkable with no major malignancies that patient knows of. HOME MEDICATIONS: Home medications were reviewed; Acyclovir 800 mg five times a day prior to admission. . PHYSICAL EXAMINATION: Physical examination today showed a middle-aged female, developed and nourished, awake and oriented and in moderate distress due to the right facial pain. VITAL SIGNS: Temperature was 99.1, pulse rate of 92, respirations 16, blood pressure 160/105, pulse oximetry of 98% on room air. HEENT: Normocephalic, extraocular muscles intact, multiple reddish papules were noted involving the right side of the face, her nose and periorbital areas consistent with recurrent herpes zoster. Oral mucosa was moist. EXAMINATION OF THE NECK: Examination of the neck showed the right side with post-surgical and radiation changes and induration which is unchanged from before. No masses or lymphadenopathy palpable. CHEST: Chest was symmetrical. LUNGS: Fairly clear to auscultation without wheezes or rales. CARDIOVASCULAR EXAM: : Regular in rate and rhythm. No murmurs or gallops heard. ABDOMEN: Slightly obese, soft, nontender, with no hepatosplenomegaly or other masses palpable. EXTREMITIES: Showed no edema. NEUROLOGICAL EXAM: Showed no focal motor deficits. CBC done today at the emergency room showed WBC 5.6, hemoglobin 13.5, platelet count of 288,000 with neutrophil count of 3.3. Sed rate was 11. Chemistry panel showed normal electrolytes. BUN was 15. Creatinine 0.82 with GFR more than 60 mL per minute. Liver function studies were within normal limits. IMPRESSION: 1. 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 2. Pain due to above. 3. History of metastatic melanoma in the past with no evidence of disease for several years. PLAN: 1. We will admit the patient to the hospital. She was started on acyclovir 10 milligram per kilogram gram IV every 8 hours. 2. Pain control with fentanyl boluses as needed. 3. I will start her also on gabapentin. 4. Will obtain a consultation with Dr. Flor for concurrent medical management. Job ID: [id number] Dictated Date: 09/13/2016 18:00:21 Program Manufacturing Leader Date: 09/14/2016 10:49:21/sim PINO
[2016-09-14] MEDS: CALAMINE LOTION 6 OZ. BOTTLE TP PRN (11:17)
[2016-09-14] MEDS: NS IV SCH ×2 (14:04→22:19)
[2016-09-14] MEDS: ACYCLOVIR IV SCH ×2 (14:04→22:19)
--- NOTE | 2016-09-14 17:49 | Progress Note-Standard ---
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 Patient is on outpatient suppressive therapy and still has intermittent flareups. She was admitted yesterday with the fairly rapid onset breakout of painful lesions on the right side of the face including the tip of the nose and AR by total area but no involvement of the eye. She was started on acyclovir initially at 500 mg IV every 8 hours and change to 800 mg IV every 8 hours today. She complained of a few new lesions in her oral cavity today. Overall the discomfort on the right side of the face is better than yesterday. Vital Sign - Last 12Hours Date Time Temp Pulse Resp B/P (MAP) Pulse Ox O2 Delivery O2 Flow Rate FiO2 09/14/16 12:00 98.2 91 20 126/59 97 Room Air physical exam showed a middle-aged female, awake and oriented, in mild discomfort due to the right facial pain. HEENT normocephalic, previously noted. The lesions on the right side of the face or slightly better especially the lesions in the right periorbital area. Neck was supple. Postsurgical and radiation changes of the right neck which is unchanged from before. Chest symmetrical. Lungs clear to auscultation without wheezes or rales. Cardiovascular exam was regular in rate and rhythm. No murmurs or gallops heard. Abdomen was soft, nontender with no hepatosplenomegaly or other masses palpable. Extremities showed no edema. Neurologic examination grossly intact without focal motor deficits. A/P: 1. Acute flare of herpes zoster infection involving right side of face. Patient is on acyclovir 800 mg IV every 8 hours. Continue. 2. Pain due to above, currently on fentanyl as needed as well as gabapentin. Continue. 3. History of metastatic malignant melanoma of right lower cervical/ supraclavicular lymph nodes without an identifiable primary, status post lymph node dissection followed by radiation therapy at [facility]. Patient completed adjuvant interferon therapy times one year. Developed solitary metastatic focus on the abdominal wall which was resected. She has been free of disease for more than [address] Jimenez covering for me this weekend and Dr. Burton covering next week. MARYSE VIVAS Sep 14, 2016 17:49
[2016-09-15 05:05] LABS: BASOPHILS % (AUTO) 0 % (0-10); EOSINOPHILS # (AUTO) 0.2 10^3/uL (0.0-0.3); EOSINOPHILS % (AUTO) 3 % (0-10); LYMPHOCYTES # (AUTO) 1.9 X 10^3 (1.0-4.0); LYMPHOCYTES % (AUTO) 29 % (12-44); MEAN CORPUSCULAR HEMOGLOBIN 30 PG (25-34); MEAN CORPUSCULAR HGB CONC 33 G/DL (32-36); MEAN CORPUSCULAR VOLUME 91 FL (80-99); MONOCYTES # (AUTO) 0.5 X 10^3 (0.0-1.0); MONOCYTES % (AUTO) 8 % (0-12); NEUTROPHILS # (AUTO) 3.8 X 10^3 (1.8-7.8); NEUTROPHILS % (AUTO) 60 % (42-75); PLATELET COUNT 264 10^3/uL (130-400); RED BLOOD COUNT 4.14 10^6/uL (4.35-5.85); RED CELL DISTRIBUTION WIDTH 12.3 % (10.0-14.5); WHITE BLOOD COUNT 6.4 10^3/uL (4.3-11.0)
[2016-09-15 05:26] LABS: ANION GAP 10 MMOL/L (5-14); BLOOD UREA NITROGEN 15 MG/DL (7-18); BUN/CREATININE RATIO 16; CALCIUM 9.2 MG/DL (8.5-10.1); CARBON DIOXIDE 22 MMOL/L (21-32); CHLORIDE 106 MMOL/L (98-107); CREATININE SERUM 0.92 MG/DL (0.60-1.30); GFR ESTIMATED > 60; GLUCOSE 104 MG/DL (70-105); POTASSIUM 3.9 MMOL/L (3.6-5.0); SODIUM 138 MMOL/L (135-145)
[2016-09-15] MEDS: PANTOPRAZOLE 40 MG (PROTONIX) TAB PO SCH (06:00)
[2016-09-15] MEDS: ACYCLOVIR IV SCH ×4 (06:00→22:46)
[2016-09-15] MEDS: NS IV SCH ×4 (06:00→22:46)
[2016-09-15] MEDS: CATHETER FLUSH 10 ML SYR IV SCH ×4 (06:00→23:43)
[2016-09-15] MEDS: fentaNYL INJECTION 100 MCG/2 ML AMP IV PRN ×7 (06:16→23:45)
[2016-09-15] MEDS: diphenhydrAMINE 25 MG TAB (BENADRYL) PO PRN ×2 (06:16→16:00)
[2016-09-15 08:12] VITALS: BP 95/53
[2016-09-15] MEDS: GABAPENTIN 300 MG (NEURONTIN) CAP PO SCH ×2 (08:53→20:23)
[2016-09-15 16:00] VITALS: BP 114/65
--- NOTE | 2016-09-15 16:18 | Progress Note (SOAP) ---
Subjective Date Seen by Provider: Sep 15, 2016 Time Seen by Provider: 12:30 Objective Exam Vital Signs Date Time Temp Pulse Resp B/P (MAP) Pulse Ox O2 Delivery O2 Flow Rate FiO2 09/15/16 16:03 97.9 09/15/16 08:12 97.9 77 20 95/53 95 Room Air 09/14/16 23:20 97.0 77 18 118/72 97 Room Air 09/14/16 21:00 Room Air 09/14/16 20:20 99.3 74 20 130/65 98 Room Air I & O 09/15/16 07:00 Intake Total 2436 ml Output Total 4500 ml Balance -2064 ml Capillary Refill : Less Than 3 Seconds General Appearance: No Apparent Distress, WD/WN HEENT: Other (scar noted right face and post radiation changes. Red papule right chin and vesicular lesion in the right ear.) Neck: Supple Respiratory: Lungs Clear, Normal Breath Sounds, No Accessory Muscle Use, No Respiratory Distress Cardiovascular: Regular Rate, Rhythm, No Edema, No JVD Gastrointestinal: normal bowel sounds, non tender, soft, no organomegaly Extremity: Non Tender, No Calf Tenderness Neurologic/Psychiatric: Alert, Oriented x3 Skin: Rash (vesicular lesions right ear and erythematous papule right chin) Results Lab Laboratory Tests 09/15/16 04:18 Laboratory Tests 09/14/16 22:40: Glucometer 118H 09/15/16 04:18: White Blood Count 6.4, Red Blood Count 4.14L, Hemoglobin 12.5, Hematocrit 38, Mean Corpuscular Volume 91, Mean Corpuscular Hemoglobin 30, Mean Corpuscular Hemoglobin Concent 33, Red Cell Distribution Width 12.3, Platelet Count 264, Mean Platelet Volume 9.0, Neutrophils (%) (Auto) 60, Lymphocytes (%) (Auto) 29, Monocytes (%) (Auto) 8, Eosinophils (%) (Auto) 3, Basophils (%) (Auto) 0, Neutrophils # (Auto) 3.8, Lymphocytes # (Auto) 1.9, Monocytes # (Auto) 0.5, Eosinophils # (Auto) 0.2, Basophils # (Auto) 0.0, Sodium Level 138, Potassium Level 3.9, Chloride Level 106, Carbon Dioxide Level 22, Anion Gap 10, Blood Urea Nitrogen 15, Creatinine 0.92, Estimat Glomerular Filtration Rate > 60, BUN/ Creatinine Ratio 16, Glucose Level 104, Calcium Level 9.2 Assessment/Plan Assessment/Plan Assess & Plan/Chief Complaint 1. 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 Patient is receiving IV acyclovir and is clinically improving. a. Continue current care. 2. Pain due to above. 3. History of metastatic melanoma in the past with no evidence of disease for several years. Clinical Quality Measures DVT/VTE Risk/Contraindication: Risk Factor Score Per Nursin RFS Level Per Nursing on Admit: 2=Moderate WILLARD AUSTIN MD Sep 15, 2016 16:18
[2016-09-15] MEDS: DOCUSATE SODIUM 100 MG (COLACE) CAP PO PRN (20:23)
[2016-09-15] MEDS: CALAMINE LOTION 6 OZ. BOTTLE TP PRN (20:26)
[2016-09-16 00:25] VITALS: BP 101/50
[2016-09-16] MEDS: NS IV SCH ×3 (05:05→21:28)
[2016-09-16] MEDS: ACYCLOVIR IV SCH ×3 (05:05→21:28)
[2016-09-16] MEDS: diphenhydrAMINE 25 MG TAB (BENADRYL) PO PRN ×3 (05:06→19:16)
[2016-09-16] MEDS: fentaNYL INJECTION 100 MCG/2 ML AMP IV PRN ×8 (05:06→23:43)
[2016-09-16] MEDS: PANTOPRAZOLE 40 MG (PROTONIX) TAB PO SCH (06:07)
[2016-09-16] MEDS: POLYETHYLENE GLYCOL 17 GM (MIRALAX) PACK PO SCH (09:16)
[2016-09-16] MEDS: GABAPENTIN 300 MG (NEURONTIN) CAP PO SCH ×2 (09:16→21:28)
[2016-09-16] MEDS: CATHETER FLUSH 10 ML SYR IV SCH ×2 (09:17→21:36)
--- NOTE | 2016-09-16 14:18 | Progress Note (SOAP) ---
Subjective Date Seen by Provider: Sep 16, 2016 Time Seen by Provider: 13:10 Subjective/Events-last exam Reports tingling and burning on right side of face extending into right ear. Objective Exam Vital Signs Date Time Temp Pulse Resp B/P (MAP) Pulse Ox O2 Delivery O2 Flow Rate FiO2 09/16/16 08:00 97.2 86 20 97 Room Air 09/16/16 00:25 97.7 83 20 101/50 92 Room Air 09/15/16 16:03 97.9 09/15/16 16:00 96.6 81 20 114/65 99 Room Air I & O 09/16/16 07:00 Intake Total 2863 ml Output Total 2250 ml Balance 613 ml Capillary Refill : Less Than 3 Seconds General Appearance: No Apparent Distress HEENT: Other (swelling noted right face with several areas covered with calamine lotion.) Neck: Full Range of Motion, Normal Inspection, Other (right surgical scars noted) Respiratory: Lungs Clear, Normal Breath Sounds, No Accessory Muscle Use Cardiovascular: Regular Rate, Rhythm, No Edema, No Gallop, No JVD Gastrointestinal: normal bowel sounds, non tender, soft, no organomegaly Extremity: Non Tender, No Calf Tenderness Neurologic/Psychiatric: Alert, Oriented x3, No Motor/Sensory Deficits, Normal Mood/Affect Skin: Normal Color, Warm/Dry Results Lab Laboratory Tests 09/15/16 04:18 Assessment/Plan Assessment/Plan Assess & Plan/Chief Complaint 1. 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 Patient is receiving IV acyclovir and is clinically improving. a. Continue current care. 2. Pain due to above. 3. History of metastatic melanoma in the past with no evidence of disease for several years. Clinical Quality Measures DVT/VTE Risk/Contraindication: Risk Factor Score Per Nursin RFS Level Per Nursing on Admit: 2=Moderate WILLARD AUSTIN MD Sep 16, 2016 14:18
[2016-09-16 16:00] VITALS: BP 131/69
[2016-09-16] MEDS: CALAMINE LOTION 6 OZ. BOTTLE TP PRN ×2 (17:00→21:29)
[2016-09-16] MEDS: DOCUSATE SODIUM 100 MG (COLACE) CAP PO PRN (21:28)
[2016-09-17 00:35] VITALS: BP 101/67
[2016-09-17] MEDS: ACYCLOVIR IV SCH ×3 (06:03→21:15)
[2016-09-17] MEDS: CATHETER FLUSH 10 ML SYR IV SCH ×3 (06:03→21:18)
[2016-09-17] MEDS: fentaNYL INJECTION 100 MCG/2 ML AMP IV PRN ×7 (06:03→23:39)
[2016-09-17] MEDS: diphenhydrAMINE 25 MG TAB (BENADRYL) PO PRN ×4 (06:03→23:58)
[2016-09-17] MEDS: NS IV SCH ×3 (06:03→21:15)
[2016-09-17] MEDS: PANTOPRAZOLE 40 MG (PROTONIX) TAB PO SCH (06:03)
[2016-09-17 08:45] VITALS: BP 125/72
[2016-09-17] MEDS: GABAPENTIN 300 MG (NEURONTIN) CAP PO SCH ×2 (09:40→21:14)
[2016-09-17] MEDS: POLYETHYLENE GLYCOL 17 GM (MIRALAX) PACK PO SCH (09:40)
--- NOTE | 2016-09-17 14:27 | Progress Note (SOAP) ---
Subjective Date Seen by Provider: Sep 17, 2016 Time Seen by Provider: 13:10 Subjective/Events-last exam Reports tingling and burning in her ear as well as new outbreaks on her upper right neck and under chin; She also reports some soreness of the left upper arm; No redness or swelling is reported of the LUE; Objective Exam Vital Signs Date Time Temp Pulse Resp B/P (MAP) Pulse Ox O2 Delivery O2 Flow Rate FiO2 09/17/16 08:45 98.5 84 18 125/72 98 Room Air 09/17/16 00:35 99.1 82 18 101/67 98 Room Air 09/16/16 16:00 98.0 106 20 131/69 99 Room Air I & O 09/17/16 07:00 Intake Total 2015 ml Output Total 2750 ml Balance -734 ml Capillary Refill : Less Than 3 Seconds General Appearance: Obese HEENT: PERRL/EOMI, Other (vesicular papules on right ear and chin;) Neck: Full Range of Motion, Other (Scars from neck dissection present; ) Respiratory: Chest Non Tender, Lungs Clear, Normal Breath Sounds, No Accessory Muscle Use, No Respiratory Distress Cardiovascular: Regular Rate, Rhythm, No Edema Gastrointestinal: normal bowel sounds, non tender, soft, no organomegaly Extremity: Other (no swelling or erythema or cord noted at left upper extremity ) Neurologic/Psychiatric: Alert, Oriented x3, 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 Patient is receiving IV acyclovir and is clinically improving. a. Continue current care. 2. Pain due to above. 3. History of metastatic melanoma in the past with no evidence of disease for several years. Clinical Quality Measures DVT/VTE Risk/Contraindication: Risk Factor Score Per Nursin RFS Level Per Nursing on Admit: 2=Moderate WILLARD AUSTIN MD Sep 17, 2016 14:27
[2016-09-17 16:25] VITALS: BP 135/62
--- NOTE | 2016-09-17 18:18 | Diagnostic Imaging Report ---
INDICATION: Left arm swelling. EXAMINATION: Left upper extremity venous Doppler study was performed in the routine fashion with color flow Doppler and waveform analysis. FINDINGS: Left internal jugular vein, left subclavian vein and left axillary vein are patent. The left brachial vein, radial vein, ulnar vein and visualized portion of the cephalic vein are patent. There is thrombus visualized in the left basilic vein, where an indwelling catheter is present. IMPRESSION: Thrombus is visualized in the left basilic vein at the site of indwelling catheter, over about a 4-5 inch length. Remaining structures are patent. Dictated by: Dictated on workstation # [id number]
[2016-09-17] MEDS ORDERED: NS IV 500 ML 500 ML ONE (18:40)
[2016-09-17] MEDS: ENOXAPARIN 40 MG/0.4 ML (LOVENOX) SYR SC SCH (18:55)
[2016-09-17] MEDS: NS IV 500 ML 500 ML IV SCH (20:03)
[2016-09-17 23:15] VITALS: BP 114/73
[2016-09-17] MEDS: CALAMINE LOTION 6 OZ. BOTTLE TP PRN (23:39)
[2016-09-18] MEDS: fentaNYL INJECTION 100 MCG/2 ML AMP IV PRN ×7 (02:59→21:38)
[2016-09-18] MEDS: PANTOPRAZOLE 40 MG (PROTONIX) TAB PO SCH (05:58)
[2016-09-18] MEDS: NS IV SCH ×3 (05:58→21:37)
[2016-09-18] MEDS: diphenhydrAMINE 25 MG TAB (BENADRYL) PO PRN ×2 (05:58→21:38)
[2016-09-18] MEDS: ACYCLOVIR IV SCH ×3 (05:58→21:37)
[2016-09-18] MEDS: CATHETER FLUSH 10 ML SYR IV SCH ×3 (05:59→21:37)
[2016-09-18 08:00] VITALS: BP 100/61
[2016-09-18] MEDS: POLYETHYLENE GLYCOL 17 GM (MIRALAX) PACK PO SCH (09:11)
[2016-09-18] MEDS: GABAPENTIN 300 MG (NEURONTIN) CAP PO SCH ×2 (09:11→18:30)
[2016-09-18] MEDS: NS IV 500 ML 500 ML IV SCH (12:05)
[2016-09-18 16:00] VITALS: BP 119/57
--- NOTE | 2016-09-18 18:10 | Oncology Progress Note ---
Subjective Time Seen by Provider: 18:00 Subjective/Events-last exam No more new blisters today. Pain is under good control with IV Fentanyl PRN She got a new PICC line today Physical Exam Vital Signs Vital Sign - Last 12Hours 09/13/16 14:15 Temp 99.1 Pulse 92 Resp 16 B/P (MAP) 160/105 Pulse Ox 98 O2 Delivery Room Air Capillary Refill : Less Than 3 Seconds General Appearance: No Apparent Distress, Obese HEENT: PERRL/EOMI, Other (blisters over her right face, neck and nose) Neck: Supple Respiratory: No Accessory Muscle Use, No Respiratory Distress Neurologic/Psychiatric: Alert, Oriented x3 Impression & Plan Impression & Plan Assess & Plan 1. 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 Patient is receiving IV acyclovir and is clinically improving. a. Continue current care. She will need 2-3 weeks of IV treatment based on her experience in the past. 2. Pain due to above. Under good control with Fentanyl IV PRN 3. History of metastatic melanoma in the past with no evidence of disease for several years. Clinical Quality Measures DVT/VTE Risk/Contraindication: Risk Factor Score Per Nursin RFS Level Per Nursing on Admit: 2=Moderate JAYJAY LICONA MD Sep 18, 2016 18:10
[2016-09-18] MEDS: ENOXAPARIN 40 MG/0.4 ML (LOVENOX) SYR SC SCH (18:28)
[2016-09-19] VITALS: BP 127/68
[2016-09-19] MEDS: fentaNYL INJECTION 100 MCG/2 ML AMP IV PRN ×6 (00:26→21:58)
[2016-09-19] MEDS: NS IV SCH ×3 (05:39→21:40)
[2016-09-19] MEDS: ACYCLOVIR IV SCH ×3 (05:39→21:40)
[2016-09-19] MEDS: CATHETER FLUSH 10 ML SYR IV SCH ×3 (05:43→21:22)
[2016-09-19] MEDS: PANTOPRAZOLE 40 MG (PROTONIX) TAB PO SCH (05:43)
[2016-09-19] MEDS: NS IV 500 ML 500 ML IV SCH ×2 (05:44→08:03)
[2016-09-19 08:15] VITALS: BP 101/57
[2016-09-19] MEDS: GABAPENTIN 300 MG (NEURONTIN) CAP PO SCH ×2 (09:17→20:29)
[2016-09-19] MEDS: POLYETHYLENE GLYCOL 17 GM (MIRALAX) PACK PO SCH (09:17)
[2016-09-19] MEDS: ONDANSETRON 4 MG/2 ML (SDV) Z0FRAN IVP PRN ×2 (14:50→21:58)
[2016-09-19 15:40] VITALS: BP 128/85
[2016-09-19] MEDS: diphenhydrAMINE 25 MG TAB (BENADRYL) PO PRN (17:36)
[2016-09-19] MEDS: ENOXAPARIN 40 MG/0.4 ML (LOVENOX) SYR SC SCH (17:36)
--- NOTE | 2016-09-19 18:36 | Oncology Progress Note ---
Subjective Time Seen by Provider: 18:00 Subjective/Events-last exam One episode of nausea and resolved after Zofran IV. Otherwise stable. No more new blisters/rash. Physical Exam Vital Signs Vital Sign - Last 12Hours 09/13/16 14:15 Temp 99.1 Pulse 92 Resp 16 B/P (MAP) 160/105 Pulse Ox 98 O2 Delivery Room Air Capillary Refill : Less Than 3 Seconds General Appearance: No Apparent Distress HEENT: PERRL/EOMI, Other (mild redness of right face. ) Neck: Supple Respiratory: Lungs Clear, No Accessory Muscle Use, No Respiratory Distress Cardiovascular: No JVD Neurologic/Psychiatric: Alert, Oriented x3 Impression & Plan Impression & Plan Assess & Plan 1. 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 Patient is receiving IV acyclovir and is clinically improving. a. Continue current care. She will need 2-3 weeks of IV treatment based on her experience in the past. 2. Pain due to above. Under good control with Fentanyl IV PRN 3. History of metastatic melanoma in the past with no evidence of disease for several years. 4. Zofran PRN for nausea Clinical Quality Measures DVT/VTE Risk/Contraindication: Risk Factor Score Per Nursin RFS Level Per Nursing on Admit: 2=Moderate JAYJAY LICONA MD Sep 19, 2016 18:36
[2016-09-20 00:55] VITALS: BP 128/79
[2016-09-20] MEDS: diphenhydrAMINE 25 MG TAB (BENADRYL) PO PRN ×2 (01:30→21:37)
[2016-09-20] MEDS: fentaNYL INJECTION 100 MCG/2 ML AMP IV PRN ×5 (01:30→20:27)
[2016-09-20] MEDS: NS IV 500 ML 500 ML IV SCH ×2 (01:37→20:26)
[2016-09-20] MEDS: ACYCLOVIR IV SCH ×3 (05:36→21:33)
[2016-09-20] MEDS: NS IV SCH ×3 (05:36→21:33)
[2016-09-20] MEDS: PANTOPRAZOLE 40 MG (PROTONIX) TAB PO SCH (05:36)
[2016-09-20] MEDS: ONDANSETRON 4 MG/2 ML (SDV) Z0FRAN IVP PRN ×2 (05:36→14:49)
[2016-09-20] MEDS: CATHETER FLUSH 10 ML SYR IV SCH ×3 (05:39→21:33)
[2016-09-20 08:00] VITALS: BP 109/72
[2016-09-20] MEDS: GABAPENTIN 300 MG (NEURONTIN) CAP PO SCH ×2 (08:34→20:16)
[2016-09-20] MEDS: POLYETHYLENE GLYCOL 17 GM (MIRALAX) PACK PO SCH (08:34)
[2016-09-20 08:52] LABS: BASOPHILS % (AUTO) 1 % (0-10); EOSINOPHILS # (AUTO) 0.2 10^3/uL (0.0-0.3); EOSINOPHILS % (AUTO) 4 % (0-10); LYMPHOCYTES # (AUTO) 1.8 X 10^3 (1.0-4.0); LYMPHOCYTES % (AUTO) 32 % (12-44); MEAN CORPUSCULAR HEMOGLOBIN 30 PG (25-34); MEAN CORPUSCULAR HGB CONC 34 G/DL (32-36); MEAN CORPUSCULAR VOLUME 90 FL (80-99); MEAN PLATELET VOLUME 8.6 FL (7.4-10.4); MONOCYTES # (AUTO) 0.5 X 10^3 (0.0-1.0); MONOCYTES % (AUTO) 8 % (0-12); NEUTROPHILS # (AUTO) 3.2 X 10^3 (1.8-7.8); NEUTROPHILS % (AUTO) 56 % (42-75); PLATELET COUNT 226 10^3/uL (130-400); RED BLOOD COUNT 4.28 10^6/uL (4.35-5.85); RED CELL DISTRIBUTION WIDTH 12.3 % (10.0-14.5); WHITE BLOOD COUNT 5.7 10^3/uL (4.3-11.0)
[2016-09-20 09:18] LABS: ANION GAP 9 MMOL/L (5-14); BLOOD UREA NITROGEN 11 MG/DL (7-18); BUN/CREATININE RATIO 13; CARBON DIOXIDE 24 MMOL/L (21-32); CHLORIDE 104 MMOL/L (98-107); CREATININE SERUM 0.82 MG/DL (0.60-1.30); SODIUM 137 MMOL/L (135-145)
[2016-09-20 09:19] LABS: ALANINE AMINOTRANSFERASE 31 U/L (0-55); ALBUMIN 3.7 GM/DL (3.2-4.5); ASPARTATE AMINO TRANSFERASE 21 U/L (5-34); BILIRUBIN,TOTAL 0.6 MG/DL (0.1-1.0); CALCIUM 9.2 MG/DL (8.5-10.1); GFR ESTIMATED > 60; GLUCOSE 96 MG/DL (70-105); TOTAL PROTEIN 6.5 GM/DL (6.4-8.2)
[2016-09-20 16:00] VITALS: BP 107/70
--- NOTE | 2016-09-20 17:15 | Oncology Progress Note ---
Subjective Time Seen by Provider: 16:00 Subjective/Events-last exam THIS IS A DUPLICATED NOTE Data Review Labs Laboratory Tests 09/20/16 08:42: Red Blood Count 4.28L Physical Exam Vital Signs Vital Sign - Last 12Hours 09/16/16 00:25 Temp 97.7 Pulse 83 Resp 20 B/P (MAP) 101/50 Pulse Ox 92 O2 Delivery Room Air Capillary Refill : Less Than 3 Seconds General Appearance: No Apparent Distress Impression & Plan Impression & Plan Assess & Plan 1. 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 Patient is receiving IV acyclovir and is clinically improving. a. Continue current care. She will need 2-3 weeks of IV treatment based on her experience in the past. 2. Pain due to above. Under good control with Fentanyl IV PRN 3. History of metastatic melanoma in the past with no evidence of disease for several years. 4. Zofran PRN for nausea Clinical Quality Measures DVT/VTE Risk/Contraindication: Risk Factor Score Per Nursin RFS Level Per Nursing on Admit: 2=Moderate JAYJAY LICONA MD Sep 20, 2016 17:15
--- NOTE | 2016-09-20 18:28 | Oncology Progress Note ---
Subjective Time Seen by Provider: 18:20 Subjective/Events-last exam No new lesions. Still burning pain over her face requires IV fentanyl Data Review Labs Laboratory Tests 09/20/16 08:42 Laboratory Tests 09/20/16 08:42: Red Blood Count 4.28L Physical Exam Vital Signs Vital Sign - Last 12Hours 09/14/16 00:00 Temp 97.3 Pulse 88 Resp 18 B/P (MAP) 110/68 Pulse Ox 98 O2 Delivery Room Air Capillary Refill : Less Than 3 Seconds General Appearance: No Apparent Distress HEENT: PERRL/EOMI, Other (mild redness over right face) Respiratory: No Accessory Muscle Use, No Respiratory Distress Gastrointestinal: Non Tender, Soft Extremity: Non Tender, No Calf Tenderness, No Pedal Edema Neurologic/Psychiatric: Alert Impression & Plan Impression & Plan Assess & Plan 1. 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 Patient is receiving IV acyclovir and is clinically improving. a. Continue current care. She will need 2-3 weeks of IV treatment based on her experience in the past. 2. Pain due to above. Under good control with Fentanyl IV PRN 3. History of metastatic melanoma in the past with no evidence of disease for several years. 4. Zofran PRN for nausea Clinical Quality Measures DVT/VTE Risk/Contraindication: Risk Factor Score Per Nursin RFS Level Per Nursing on Admit: 2=Moderate JAYJAY LICONA MD Sep 20, 2016 18:28
[2016-09-20] MEDS: ENOXAPARIN 40 MG/0.4 ML (LOVENOX) SYR SC SCH (18:38)
[2016-09-20 23:38] VITALS: BP 137/67
[2016-09-20 23:56] VITALS: BP 100/67
[2016-09-21] MEDS: ACYCLOVIR IV SCH ×3 (05:31→21:49)
[2016-09-21] MEDS: NS IV SCH ×3 (05:31→21:49)
[2016-09-21] MEDS: CATHETER FLUSH 10 ML SYR IV SCH ×3 (05:31→20:44)
[2016-09-21] MEDS: PANTOPRAZOLE 40 MG (PROTONIX) TAB PO SCH (05:31)
[2016-09-21 08:00] VITALS: BP 117/56
[2016-09-21] MEDS: GABAPENTIN 300 MG (NEURONTIN) CAP PO SCH ×2 (09:50→20:44)
[2016-09-21] MEDS: fentaNYL INJECTION 100 MCG/2 ML AMP IV PRN ×3 (09:50→15:41)
[2016-09-21] MEDS: POLYETHYLENE GLYCOL 17 GM (MIRALAX) PACK PO SCH (09:50)
[2016-09-21] MEDS: diphenhydrAMINE 25 MG TAB (BENADRYL) PO PRN ×2 (09:51→14:50)
[2016-09-21] MEDS: DOCUSATE SODIUM 100 MG (COLACE) CAP PO PRN ×2 (10:00→15:29)
[2016-09-21] MEDS ORDERED: KETOROLAC 15 MG/ML VIAL IVP PRN (15:15)
[2016-09-21] MEDS ORDERED: HYDROcodone/APAP 7.5 MG/325 MG (LORTAB, LORCET PLUS) TABLET PO PRN (15:15)
[2016-09-21] MEDS: KETOROLAC 15 MG/ML VIAL IVP NR ×2 (15:30→16:57)
[2016-09-21] MEDS: NS IV 500 ML 500 ML IV SCH (15:36)
[2016-09-21 16:39] VITALS: BP 121/57
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
[2016-09-21] MEDS: ENOXAPARIN 40 MG/0.4 ML (LOVENOX) SYR SC SCH (19:05)
[2016-09-21] MEDS: fentaNYL PATCH 50 MCG (DURAGESIC) TD SCH (19:05)
[2016-09-21] MEDS: fentaNYL INJECTION 100 MCG/2 ML AMP IVP PRN ×2 (20:44→23:06)
[2016-09-21 23:35] VITALS: BP 118/55
[2016-09-22] MEDS: fentaNYL INJECTION 100 MCG/2 ML AMP IVP PRN ×7 (02:55→21:13)
[2016-09-22] MEDS: NS IV SCH ×3 (05:58→21:12)
[2016-09-22] MEDS: CATHETER FLUSH 10 ML SYR IV SCH ×3 (05:58→21:12)
[2016-09-22] MEDS: PANTOPRAZOLE 40 MG (PROTONIX) TAB PO SCH (05:58)
[2016-09-22] MEDS: ACYCLOVIR IV SCH ×3 (05:58→21:12)
[2016-09-22 08:00] VITALS: BP 106/59
[2016-09-22] MEDS: GABAPENTIN 300 MG (NEURONTIN) CAP PO SCH ×2 (08:30→21:12)
[2016-09-22] MEDS: POLYETHYLENE GLYCOL 17 GM (MIRALAX) PACK PO SCH (08:30)
--- NOTE | 2016-09-22 10:00 | Oncology Progress Note ---
Subjective Time Seen by Provider: 11:00 Subjective/Events-last exam Pt is more calm today. No more break out. Pain in good control. Data Review Labs Laboratory Tests 09/20/16 08:42: Red Blood Count 4.28L Physical Exam Vital Signs Vital Sign - Last 12Hours 09/16/16 00:25 Temp 97.7 Pulse 83 Resp 20 B/P (MAP) 101/50 Pulse Ox 92 O2 Delivery Room Air Capillary Refill : Less Than 3 Seconds General Appearance: No Apparent Distress HEENT: PERRL/EOMI Neck: Non Tender, Supple Respiratory: Lungs Clear, No Accessory Muscle Use, No Respiratory Distress Cardiovascular: Regular Rate, Rhythm Extremity: Non Tender, No Pedal Edema Neurologic/Psychiatric: Alert, Oriented x3 Impression & Plan Impression & Plan Assess & Plan 1. 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 Patient is receiving IV acyclovir. a. Continue current care. She will need 2-3 weeks of IV treatment based on her experience in the past. 2. Pain due to above. Increased Fentanyl IV PRN q 1hr and add Fentanyl patch 50mcg on 09/21/16. Doing well so far. 3. History of metastatic melanoma in the past with no evidence of disease for several years. 4. Zofran PRN for nausea Clinical Quality Measures DVT/VTE Risk/Contraindication: Risk Factor Score Per Nursin RFS Level Per Nursing on Admit: 2=Moderate JAYJAY LICONA MD Sep 22, 2016 10:00
[2016-09-22] MEDS: NS IV 500 ML 500 ML IV SCH (11:10)
[2016-09-22] MEDS: diphenhydrAMINE 25 MG TAB (BENADRYL) PO PRN (14:36)
[2016-09-22 15:36] VITALS: BP 113/53
[2016-09-22] MEDS: DULoxetine 20 MG (CYMBALTA) CAP PO SCH (15:45)
[2016-09-22] MEDS: ENOXAPARIN 40 MG/0.4 ML (LOVENOX) SYR SC SCH (18:23)
[2016-09-23] VITALS: BP 120/60
[2016-09-23] MEDS: diphenhydrAMINE 25 MG TAB (BENADRYL) PO PRN ×3 (00:02→17:42)
[2016-09-23] MEDS: fentaNYL INJECTION 100 MCG/2 ML AMP IVP PRN ×10 (00:02→22:35)
[2016-09-23] MEDS: ACYCLOVIR IV SCH ×3 (05:21→22:35)
[2016-09-23] MEDS: PANTOPRAZOLE 40 MG (PROTONIX) TAB PO SCH (05:21)
[2016-09-23] MEDS: NS IV SCH ×3 (05:21→22:35)
[2016-09-23] MEDS: CATHETER FLUSH 10 ML SYR IV SCH ×3 (05:21→20:05)
[2016-09-23 08:00] VITALS: BP 94/52
[2016-09-23] MEDS: GABAPENTIN 300 MG (NEURONTIN) CAP PO SCH ×2 (08:06→20:04)
[2016-09-23] MEDS: POLYETHYLENE GLYCOL 17 GM (MIRALAX) PACK PO SCH (08:06)
[2016-09-23] MEDS: DULoxetine 20 MG (CYMBALTA) CAP PO SCH (08:15)
[2016-09-23] MEDS: NS IV 500 ML 500 ML IV SCH (08:16)
[2016-09-23] MEDS ORDERED: DULoxetine 20 MG (CYMBALTA) CAP PO SCH (09:00)
[2016-09-23] MEDS: ONDANSETRON 4 MG/2 ML (SDV) Z0FRAN IVP PRN (11:51)
[2016-09-23] MEDS: DOCUSATE SODIUM 100 MG (COLACE) CAP PO PRN ×2 (11:52→16:06)
--- NOTE | 2016-09-23 14:32 | Oncology Progress Note ---
Subjective Time Seen by Provider: 14:20 Subjective/Events-last exam Pt is comfortable sleep No new issues. Physical Exam Vital Signs Vital Sign - Last 12Hours 09/17/16 00:35 Temp 99.1 Pulse 82 Resp 18 B/P (MAP) 101/67 Pulse Ox 98 O2 Delivery Room Air Capillary Refill : Less Than 3 Seconds General Appearance: No Apparent Distress Impression & Plan Impression & Plan Assess & Plan 1. 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 Patient is receiving IV acyclovir. a. Continue current care. She will need 2-3 weeks of IV treatment based on her experience in the past. 2. Pain due to above. Increased Fentanyl IV PRN q 1hr and add Fentanyl patch 50mcg on 09/21/16. Doing well so far. 3. History of metastatic melanoma in the past with no evidence of disease for several years. 4. Zofran PRN for nausea Clinical Quality Measures DVT/VTE Risk/Contraindication: Risk Factor Score Per Nursin RFS Level Per Nursing on Admit: 2=Moderate JAYJAY LICONA MD Sep 23, 2016 14:32
[2016-09-23 16:00] VITALS: BP 126/66
[2016-09-23] MEDS: ENOXAPARIN 40 MG/0.4 ML (LOVENOX) SYR SC SCH (17:42)
[2016-09-23 23:55] VITALS: BP 96/54
[2016-09-24] MEDS: fentaNYL INJECTION 100 MCG/2 ML AMP IVP PRN ×9 (00:20→21:49)
[2016-09-24] MEDS: NS IV 500 ML 500 ML IV SCH ×2 (03:27→18:01)
[2016-09-24] MEDS: diphenhydrAMINE 25 MG TAB (BENADRYL) PO PRN ×3 (03:27→15:09)
[2016-09-24] MEDS: NS IV SCH ×3 (06:00→21:44)
[2016-09-24] MEDS: PANTOPRAZOLE 40 MG (PROTONIX) TAB PO SCH (06:00)
[2016-09-24] MEDS: ACYCLOVIR IV SCH ×3 (06:00→21:44)
[2016-09-24] MEDS: CATHETER FLUSH 10 ML SYR IV SCH ×3 (06:01→20:24)
[2016-09-24 08:00] VITALS: BP 113/67
[2016-09-24] MEDS: GABAPENTIN 300 MG (NEURONTIN) CAP PO SCH ×2 (08:51→20:23)
[2016-09-24] MEDS: POLYETHYLENE GLYCOL 17 GM (MIRALAX) PACK PO SCH (08:51)
[2016-09-24] MEDS: DULoxetine 20 MG (CYMBALTA) CAP PO SCH (08:51)
[2016-09-24] MEDS: DOCUSATE SODIUM 100 MG (COLACE) CAP PO PRN ×3 (08:52→21:49)
--- NOTE | 2016-09-24 13:35 | Oncology Progress Note ---
Subjective Time Seen by Provider: 13:45 Subjective/Events-last exam No new issues. Physical Exam Vital Signs Vital Sign - Last 12Hours 09/18/16 08:00 Temp 97.9 Pulse 78 Resp 20 B/P (MAP) 100/61 Pulse Ox 98 O2 Delivery Room Air Capillary Refill : Less Than 3 Seconds General Appearance: No Apparent Distress HEENT: PERRL/EOMI, Other (No new skin blisters/lesions today) Neck: Supple, Carotid Bruit Gastrointestinal: Non Tender, Soft Extremity: Non Tender, No Calf Tenderness Neurologic/Psychiatric: Alert, Oriented x3 Impression & Plan Impression & Plan Assess & Plan 1. 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 Patient is receiving IV acyclovir. a. Continue current care. She will need 2-3 weeks of IV treatment based on her experience in the past. 2. Pain due to above. Increased Fentanyl IV PRN q 1hr and add Fentanyl patch 50mcg on 09/21/16. Doing well so far. 3. History of metastatic melanoma in the past with no evidence of disease for several years. 4. Zofran PRN for nausea Clinical Quality Measures DVT/VTE Risk/Contraindication: Risk Factor Score Per Nursin RFS Level Per Nursing on Admit: 2=Moderate JAYJAY LICONA MD Sep 24, 2016 13:35
[2016-09-24 15:40] VITALS: BP 113/77
[2016-09-24] MEDS: FENTANYL PATCH REMOVAL TP SCH (17:13)
[2016-09-24] MEDS: fentaNYL PATCH 50 MCG (DURAGESIC) TD SCH (17:13)
[2016-09-24] MEDS: ENOXAPARIN 40 MG/0.4 ML (LOVENOX) SYR SC SCH (18:01)
[2016-09-24 23:30] VITALS: BP 122/80
[2016-09-25] MEDS: fentaNYL INJECTION 100 MCG/2 ML AMP IVP PRN ×12 (00:55→23:39)
[2016-09-25] MEDS: NS IV 500 ML 500 ML IV SCH ×2 (00:55→18:16)
[2016-09-25] MEDS: NS IV SCH ×3 (06:19→21:26)
[2016-09-25] MEDS: ACYCLOVIR IV SCH ×3 (06:19→21:26)
[2016-09-25] MEDS: PANTOPRAZOLE 40 MG (PROTONIX) TAB PO SCH (06:20)
[2016-09-25] MEDS: diphenhydrAMINE 25 MG TAB (BENADRYL) PO PRN (06:20)
[2016-09-25] MEDS: DOCUSATE SODIUM 100 MG (COLACE) CAP PO PRN (06:20)
[2016-09-25] MEDS: CATHETER FLUSH 10 ML SYR IV SCH ×3 (06:21→21:26)
[2016-09-25] MEDS: GABAPENTIN 300 MG (NEURONTIN) CAP PO SCH ×2 (07:42→20:08)
[2016-09-25] MEDS: POLYETHYLENE GLYCOL 17 GM (MIRALAX) PACK PO SCH (07:43)
[2016-09-25] MEDS: DULoxetine 20 MG (CYMBALTA) CAP PO SCH (07:43)
[2016-09-25 07:55] VITALS: BP 137/67
[2016-09-25 16:51] VITALS: BP 110/53
[2016-09-25] MEDS: ENOXAPARIN 40 MG/0.4 ML (LOVENOX) SYR SC SCH (18:04)
--- NOTE | 2016-09-25 19:24 | Progress Note-Standard ---
Standard Progress Note Progress Notes/Assess & Plan Date Seen by Provider: Sep 25, 2016 Time Seen by Provider: 19:18 Progress/Assessment & Plan 45-year-old female with history of metastatic melanoma in the distant past requiring right neck and supraclavicular lymph node dissection followed by radiation therapy as well as adjuvant interferon therapy, admitted with the recurrent herpes zoster infection involving the right trigeminal nerve. Patient is on outpatient suppressive therapy and still has intermittent flareups. She was admitted on 09/13/2016and started on IV acyclovir 10 mg/kg every 8 hours. She has had intermittent breakout of lesions in the nostril and right ear during the last week. She continues to have burning and shooting pain in the right side of the face and is requiring pain medications fairly regularly. Few raised lesions noted on the right side of the face but no vesicles seen. Vital Sign - Last 12Hours Date Time Temp Pulse Resp B/P (MAP) Pulse Ox O2 Delivery O2 Flow Rate FiO2 09/25/16 16:51 97.8 89 20 110/53 99 Room Air Physical exam showed a middle-aged female, awake and oriented, in moderate discomfort due to the right facial pain. HEENT normocephalic. Thickening noted over the right malar prominence without any vesicles. Neck was supple. Postsurgical and radiation changes of the right neck which is unchanged from before. Chest symmetrical. Lungs clear to auscultation without wheezes or rales. Cardiovascular exam was regular in rate and rhythm. No murmurs or gallops heard. Abdomen was soft, nontender with no hepatosplenomegaly or other masses palpable. Extremities showed no edema. Neurologic examination grossly intact without focal motor deficits. A/P: 1. Acute flare of herpes zoster infection involving right side of face. Patient is on acyclovir 800 mg IV every 8 hours day # 12. Continue. 2. Pain due to above, currently on fentanyl patch 25 mcg/h and boluses IV as needed as well as gabapentin. Continue. 3. History of metastatic malignant melanoma of right lower cervical/ supraclavicular lymph nodes without an identifiable primary, status post lymph node dissection followed by radiation therapy at [facility]. Patient completed adjuvant interferon therapy times one year. Developed solitary metastatic focus on the abdominal wall which was resected. She has been free of disease for more than 10 years. 4. if not better in the next few days, I will contact infectious disease services at [facility] for further guidance. MARYSE VIVAS Sep 25, 2016 19:24
[2016-09-25 23:25] VITALS: BP 126/67
[2016-09-26] MEDS: fentaNYL INJECTION 100 MCG/2 ML AMP IVP PRN ×16 (02:05→23:11)
[2016-09-26] MEDS: diphenhydrAMINE 25 MG TAB (BENADRYL) PO PRN ×3 (03:32→21:03)
[2016-09-26] MEDS: NS IV SCH ×3 (06:02→21:03)
[2016-09-26] MEDS: ACYCLOVIR IV SCH ×3 (06:02→21:03)
[2016-09-26] MEDS: CATHETER FLUSH 10 ML SYR IV SCH ×3 (06:02→21:04)
[2016-09-26] MEDS: PANTOPRAZOLE 40 MG (PROTONIX) TAB PO SCH (06:03)
[2016-09-26 08:00] VITALS: BP_SYST 124; BP_DIAS 0; BP_DIAS 60
[2016-09-26] MEDS: GABAPENTIN 300 MG (NEURONTIN) CAP PO SCH ×2 (08:10→21:03)
[2016-09-26] MEDS: DULoxetine 20 MG (CYMBALTA) CAP PO SCH (08:10)
[2016-09-26] MEDS: POLYETHYLENE GLYCOL 17 GM (MIRALAX) PACK PO SCH (08:10)
[2016-09-26] MEDS: DOCUSATE SODIUM 100 MG (COLACE) CAP PO PRN (11:00)
[2016-09-26] MEDS: NS IV 500 ML 500 ML IV SCH (14:51)
[2016-09-26 16:00] VITALS: BP 132/74
[2016-09-26] MEDS: ENOXAPARIN 40 MG/0.4 ML (LOVENOX) SYR SC SCH (17:28)
--- NOTE | 2016-09-26 19:21 | Progress Note-Standard ---
Standard Progress Note Progress Notes/Assess & Plan Date Seen by Provider: Sep 26, 2016 Time Seen by Provider: 19:16 Progress/Assessment & Plan 45-year-old female with history of metastatic melanoma in the distant past requiring right neck and supraclavicular lymph node dissection followed by radiation therapy as well as adjuvant interferon therapy, admitted with the recurrent herpes zoster infection involving the right trigeminal nerve. Patient was on outpatient suppressive therapy and still has intermittent flareups. She was admitted on 09/13/2016and started on IV acyclovir 10 mg/kg every 8 hours. She has had intermittent breakout of lesions in the nostril and right ear during the last week. She continues to have burning and shooting pain in the right side of the face and is requiring pain medications fairly regularly. Pain is worse today and requires breakthrough medication fairly regularly. Vital Sign - Last 12Hours Date Time Temp Pulse Resp B/P (MAP) Pulse Ox O2 Delivery O2 Flow Rate FiO2 09/26/16 16:00 98.0 85 18 132/74 98 Room Air Physical exam showed a middle-aged female, awake and oriented, in moderate discomfort due to the right facial pain. HEENT normocephalic. Thickening noted over the right malar prominence yesterday has improved. No new lesions on the right side of face. Neck was supple. Postsurgical and radiation changes of the right neck which is unchanged from before. Chest symmetrical. Lungs clear to auscultation without wheezes or rales. Cardiovascular exam was regular in rate and rhythm. No murmurs or gallops heard. Abdomen was soft, nontender with no hepatosplenomegaly or other masses palpable. Extremities showed no edema. Neurologic examination grossly intact without focal motor deficits. A/P: 1. Acute flare of herpes zoster infection involving right side of face. Patient is on acyclovir 800 mg IV every 8 hours day # 12. Continue. 2. Pain due to above, currently on fentanyl patch 50 mcg/h and boluses IV as needed as well as gabapentin. Will increase to 75 mcg every 1 hr as needed. Will increase Gabapentin to 300 mg every 8 hours. 3. History of metastatic malignant melanoma of right lower cervical/ supraclavicular lymph nodes without an identifiable primary, status post lymph node dissection followed by radiation therapy at [facility]. Patient completed adjuvant interferon therapy times one year. Developed solitary metastatic focus on the abdominal wall which was resected. She has been free of disease for more than 10 years. 4. If not better in the next few days, I will contact infectious disease services at [facility] for further guidance. MARYSE VIVAS Sep 26, 2016 19:21
[2016-09-27 00:26] VITALS: BP 103/69
[2016-09-27] MEDS: fentaNYL INJECTION 100 MCG/2 ML AMP IVP PRN ×8 (01:26→14:23)
[2016-09-27] MEDS: CALAMINE LOTION 6 OZ. BOTTLE TP PRN ×2 (01:26→10:04)
[2016-09-27] MEDS: diphenhydrAMINE 25 MG TAB (BENADRYL) PO PRN (05:21)
[2016-09-27] MEDS: CATHETER FLUSH 10 ML SYR IV SCH ×3 (05:21→21:23)
[2016-09-27] MEDS: ACYCLOVIR IV SCH ×3 (05:21→21:19)
[2016-09-27] MEDS: GABAPENTIN 300 MG (NEURONTIN) CAP PO SCH ×3 (05:21→21:19)
[2016-09-27] MEDS: NS IV SCH ×3 (05:21→21:19)
[2016-09-27] MEDS: PANTOPRAZOLE 40 MG (PROTONIX) TAB PO SCH (05:21)
[2016-09-27 05:44] LABS: BASOPHILS % (AUTO) 0 % (0-10); EOSINOPHILS # (AUTO) 0.2 10^3/uL (0.0-0.3); EOSINOPHILS % (AUTO) 4 % (0-10); LYMPHOCYTES # (AUTO) 1.5 X 10^3 (1.0-4.0); LYMPHOCYTES % (AUTO) 32 % (12-44); MEAN CORPUSCULAR HEMOGLOBIN 31 PG (25-34); MEAN CORPUSCULAR HGB CONC 34 G/DL (32-36); MEAN CORPUSCULAR VOLUME 92 FL (80-99); MEAN PLATELET VOLUME 8.7 FL (7.4-10.4); MONOCYTES # (AUTO) 0.4 X 10^3 (0.0-1.0); MONOCYTES % (AUTO) 9 % (0-12); NEUTROPHILS # (AUTO) 2.5 X 10^3 (1.8-7.8); NEUTROPHILS % (AUTO) 54 % (42-75); PLATELET COUNT 256 10^3/uL (130-400); RED BLOOD COUNT 3.78 10^6/uL (4.35-5.85); RED CELL DISTRIBUTION WIDTH 12.9 % (10.0-14.5); WHITE BLOOD COUNT 4.5 10^3/uL (4.3-11.0)
[2016-09-27] MEDS: POLYETHYLENE GLYCOL 17 GM (MIRALAX) PACK PO SCH (08:37)
[2016-09-27] MEDS: DULoxetine 20 MG (CYMBALTA) CAP PO SCH (08:37)
[2016-09-27 08:57] VITALS: BP 118/63
[2016-09-27] MEDS: DOCUSATE SODIUM 100 MG (COLACE) CAP PO PRN ×2 (10:03→21:19)
[2016-09-27] MEDS: NS IV 500 ML 500 ML IV SCH (10:04)
--- NOTE | 2016-09-27 15:34 | Progress Note-Standard ---
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 Patient was on outpatient suppressive therapy and still has intermittent flareups. She was admitted on 09/13/2016and started on IV acyclovir 10 mg/kg every 8 hours. She has had intermittent breakout of lesions in the nostril and right ear during the last week. She continues to have burning and shooting pain in the right side of the face and is requiring fentanyl 75 mcg on an hourly basis. She was unable to rest last night because of the pain. She is using calamine topically which helps the burning pain. Vital Sign - Last 12Hours Date Time Temp Pulse Resp B/P (MAP) Pulse Ox O2 Delivery O2 Flow Rate FiO2 09/27/16 08:57 97.7 89 20 118/63 98 Room Air Physical exam showed a middle-aged female, awake and oriented, in moderate discomfort due to the right facial pain. HEENT normocephalic. Thickening noted over the right malar prominence yesterday is continuing to improve. No new lesions on the right side of face. Neck was supple. Postsurgical and radiation changes of the right neck which is unchanged from before. Chest symmetrical. Lungs clear to auscultation without wheezes or rales. Cardiovascular exam was regular in rate and rhythm. No murmurs or gallops heard. Abdomen was soft, nontender with no hepatosplenomegaly or other masses palpable. Extremities showed no edema. Neurologic examination grossly intact without focal motor deficits. Laboratory Tests 09/27/16 05:15 A/P: 1. Acute flare of herpes zoster infection involving right side of face. Patient is on acyclovir 800 mg IV every 8 hours day # 13. Continue. 2. Pain due to above, currently on fentanyl patch 50 mcg/h and boluses IV as needed as well as gabapentin. Will change this to fentanyl 75 mcg/h continuous infusion using a LOCKSTITCH LINING MAKER with 25 g bolus every 30 minutes as needed. Continue gabapentin. 3. History of metastatic malignant melanoma of right lower cervical/ supraclavicular lymph nodes without an identifiable primary, status post lymph node dissection followed by radiation therapy at [facility] [place]. Patient completed adjuvant interferon therapy times one year. Developed solitary metastatic focus on the abdominal wall which was resected. She has been free of disease for more than 10 years. 4. I will try to contact infectious disease services at [facility] for further guidance. MARYSE VIVAS Sep 27, 2016 15:34
[2016-09-27 16:00] VITALS: BP 125/72
[2016-09-27] MEDS: fentaNYL INJECTION 5,000 MCG in NS (IVPB) 0 ML IV SCH (16:21)
[2016-09-27] MEDS: FENTANYL PATCH REMOVAL TP SCH (17:00)
[2016-09-27] MEDS: ENOXAPARIN 40 MG/0.4 ML (LOVENOX) SYR SC SCH (18:02)
[2016-09-27 19:47] VITALS: BP 134/61
[2016-09-27 23:33] VITALS: BP 143/66
[2016-09-28 04:27] VITALS: BP 133/59
[2016-09-28] MEDS: PANTOPRAZOLE 40 MG (PROTONIX) TAB PO SCH (05:28)
[2016-09-28] MEDS: NS IV SCH ×3 (05:28→22:25)
[2016-09-28] MEDS: ACYCLOVIR IV SCH ×3 (05:28→22:25)
[2016-09-28] MEDS: GABAPENTIN 300 MG (NEURONTIN) CAP PO SCH ×3 (05:28→22:25)
[2016-09-28] MEDS: NS IV 500 ML 500 ML IV SCH ×2 (05:31→22:26)
[2016-09-28] MEDS: CATHETER FLUSH 10 ML SYR IV SCH ×3 (06:20→22:26)
[2016-09-28 07:34] VITALS: BP 133/76
[2016-09-28] MEDS: POLYETHYLENE GLYCOL 17 GM (MIRALAX) PACK PO SCH (09:35)
[2016-09-28] MEDS: DULoxetine 20 MG (CYMBALTA) CAP PO SCH (09:35)
[2016-09-28 11:45] VITALS: BP 119/68
[2016-09-28 16:00] VITALS: BP 123/58
--- NOTE | 2016-09-28 17:14 | Progress Note-Standard ---
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 Patient was on outpatient suppressive therapy and still has intermittent flare ups. She was admitted on 09/13/2016and started on IV acyclovir 10 mg/kg every 8 hours. Pain better with Fentanyl GUMMED TAPE PRESS OPERATOR. End tidal CO2 monitoring in progress per hospital policy but this is irritating her nostrils, right cheek and right ear. Vital Sign - Last 12Hours Date Time Temp Pulse Resp B/P (MAP) Pulse Ox O2 Delivery O2 Flow Rate FiO2 09/28/16 16:00 97.8 80 20 123/58 98 Room Air Physical exam showed a middle-aged female, awake and oriented, in mild discomfort due to the right facial pain. HEENT normocephalic. Thickening noted over the right malar prominence is continuing to improve. No new lesions on the right side of face. Neck was supple. Postsurgical and radiation changes of the right neck which is unchanged from before. Chest symmetrical. Lungs clear to auscultation without wheezes or rales. Cardiovascular exam was regular in rate and rhythm. No murmurs or gallops heard. Abdomen was soft, nontender with no hepatosplenomegaly or other masses palpable. Extremities showed no edema. Neurologic examination grossly intact without focal motor deficits. A/P: 1. Acute flare of herpes zoster infection involving right side of face. Patient is on acyclovir 800 mg IV every 8 hours day # 14. Continue. 2. Pain due to above, currently on fentanyl 75 mcg/h continuous infusion using a GUMMED TAPE PRESS OPERATOR with 25 g bolus every 30 minutes as needed. Continue gabapentin 300 mg every 8 hours. D/C end tidal CO2 monitor. 3. History of metastatic malignant melanoma of right lower cervical/ supraclavicular lymph nodes without an identifiable primary, status post lymph node dissection followed by radiation therapy at [facility] [place]. Patient completed adjuvant interferon therapy times one year. Developed solitary metastatic focus on the abdominal wall which was resected. She has been free of disease for more than 10 years. 4. I will try to contact infectious disease services at [facility] for further guidance. MARYSE VIVAS Sep 28, 2016 17:14
[2016-09-28] MEDS: ENOXAPARIN 40 MG/0.4 ML (LOVENOX) SYR SC SCH (18:21)
[2016-09-28 19:40] VITALS: BP 139/80
[2016-09-29] VITALS (7 sets, daily range): BP systolic 121–174; BP diastolic 66–82
[2016-09-29] MEDS: ACYCLOVIR IV SCH ×3 (06:41→21:19)
[2016-09-29] MEDS: PANTOPRAZOLE 40 MG (PROTONIX) TAB PO SCH (06:41)
[2016-09-29] MEDS: NS IV SCH ×3 (06:41→21:19)
[2016-09-29] MEDS: GABAPENTIN 300 MG (NEURONTIN) CAP PO SCH ×3 (06:41→21:19)
[2016-09-29] MEDS: CATHETER FLUSH 10 ML SYR IV SCH ×3 (06:46→21:19)
[2016-09-29] MEDS: DULoxetine 20 MG (CYMBALTA) CAP PO SCH (08:55)
[2016-09-29] MEDS: POLYETHYLENE GLYCOL 17 GM (MIRALAX) PACK PO SCH (08:55)
[2016-09-29] MEDS: diphenhydrAMINE 25 MG TAB (BENADRYL) PO PRN (14:22)
--- NOTE | 2016-09-29 15:58 | Progress Note-Standard ---
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 Patient was on outpatient suppressive therapy and still has intermittent flare ups. She was admitted on 09/13/2016and started on IV acyclovir 10 mg/kg every 8 hours. Pain better with Fentanyl MOBILE DESIGNER. Still having paroxysmal burning and itching. No new lesions on the right side of the face. Few reddish spots on the left side of the face and neck since yesterday. No fevers or chills. Vital Sign - Last 12Hours Date Time Temp Pulse Resp B/P (MAP) Pulse Ox O2 Delivery O2 Flow Rate FiO2 09/29/16 12:00 98.0 88 18 126/74 96 Room Air Physical exam showed a middle-aged female, awake and oriented, in no acute distress. HEENT normocephalic. Thickening noted over the right malar prominence is stable compared to yesterday. Few small red beige spots on the left side of the face and neck which is probably folliculitis. Neck was supple. Postsurgical and radiation changes of the right neck which is unchanged from before. Chest symmetrical. Lungs clear to auscultation without wheezes or rales. Cardiovascular exam was regular in rate and rhythm. No murmurs or gallops heard. Abdomen was soft, nontender with no hepatosplenomegaly or other masses palpable. Extremities showed no edema. Neurologic examination grossly intact without focal motor deficits. A/P: 1. Acute flare of herpes zoster infection involving right side of face. Patient is on acyclovir 800 mg IV every 8 hours day # 15. Continue. 2. Pain due to above, currently on fentanyl 75 mcg/h continuous infusion using a MOBILE DESIGNER with 25 g bolus every 30 minutes as needed. Continue gabapentin 300 mg every 8 hours. 3. Probable folliculitis, I will start the patient on doxycycline 100 mg by mouth twice a day 7 days. 4. History of metastatic malignant melanoma of right lower cervical/ supraclavicular lymph nodes without an identifiable primary, status post lymph node dissection followed by radiation therapy at [facility]. Patient completed adjuvant interferon therapy times one year. Developed solitary metastatic focus on the abdominal wall which was resected. She has been free of disease for more than 10 years. MARYSE VIVAS Sep 29, 2016 15:58
[2016-09-29] MEDS: DOXYCYCLINE 100 MG (VIBRAMYCIN) TABLET PO SCH (17:58)
[2016-09-29] MEDS: NS IV 500 ML 500 ML IV SCH (17:58)
[2016-09-29] MEDS: ENOXAPARIN 40 MG/0.4 ML (LOVENOX) SYR SC SCH (17:59)
[2016-09-29] MEDS: fentaNYL INJECTION 5,000 MCG in NS (IVPB) 0 ML IV SCH (20:23)
[2016-09-30] MEDS: ACYCLOVIR IV SCH ×3 (06:22→21:15)
[2016-09-30] MEDS: GABAPENTIN 300 MG (NEURONTIN) CAP PO SCH ×3 (06:22→21:16)
[2016-09-30] MEDS: CATHETER FLUSH 10 ML SYR IV SCH ×3 (06:22→21:16)
[2016-09-30] MEDS: DOXYCYCLINE 100 MG (VIBRAMYCIN) TABLET PO SCH ×2 (06:22→16:58)
[2016-09-30] MEDS: NS IV SCH ×3 (06:22→21:15)
[2016-09-30] MEDS: PANTOPRAZOLE 40 MG (PROTONIX) TAB PO SCH (06:22)
[2016-09-30] MEDS: NS IV 500 ML 500 ML IV SCH (07:22)
[2016-09-30 08:10] VITALS: BP 137/82
[2016-09-30] MEDS: DULoxetine 20 MG (CYMBALTA) CAP PO SCH (09:18)
[2016-09-30] MEDS: POLYETHYLENE GLYCOL 17 GM (MIRALAX) PACK PO SCH (09:18)
--- NOTE | 2016-09-30 10:44 | Progress Note-Standard ---
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 Patient was on outpatient suppressive therapy and still has intermittent flare ups. She was admitted on 09/13/2016and started on IV acyclovir 10 mg/kg every 8 hours. Pain better with Fentanyl DIGITAL MARKETING STRATEGIST. Still having paroxysmal burning and itching. No new lesions on the right side of the face. The reddish spots on the left side of the face and neck noted yesterday is improving and no new lesions seen. Vital Sign - Last 12Hours Date Time Temp Pulse Resp B/P (MAP) Pulse Ox O2 Delivery O2 Flow Rate FiO2 09/30/16 08:10 98.7 89 20 137/82 96 Room Air Physical exam showed a middle-aged female, awake and oriented, in no acute distress. HEENT normocephalic. Thickening noted over the right malar prominence is better than yesterday. The small red spots on the left side of the face and neck have improved. Neck was supple. Postsurgical and radiation changes of the right neck which is unchanged from before. Chest symmetrical. Lungs clear to auscultation without wheezes or rales. Cardiovascular exam was regular in rate and rhythm. No murmurs or gallops heard. Abdomen was soft, nontender with no hepatosplenomegaly or other masses palpable. Extremities showed no edema. Neurologic examination grossly intact without focal motor deficits. A/P: 1. Acute flare of herpes zoster infection involving right side of face. Patient is on acyclovir 800 mg IV every 8 hours day # 15. Continue. 2. Pain due to above, currently on fentanyl 75 mcg/h continuous infusion using a DIGITAL MARKETING STRATEGIST with 25 g bolus every 30 minutes as needed. Continue gabapentin 300 mg every 8 hours. 3. Probable folliculitis, started on doxycycline 100 mg by mouth twice a day since 09/29/16 and improving. 4. History of metastatic malignant melanoma of right lower cervical/ supraclavicular lymph nodes without an identifiable primary, status post lymph node dissection followed by radiation therapy at [facility]. Patient completed adjuvant interferon therapy times one year. Developed solitary metastatic focus on the abdominal wall which was resected. She has been free of disease for more than 10 years. 5. Increase activity level and ambulate in hallway. MARYSE VIVAS Sep 30, 2016 10:44
[2016-09-30] MEDS: FENTANYL PATCH REMOVAL TP SCH (15:27)
[2016-09-30 15:45] VITALS: BP 145/89
[2016-09-30] MEDS: ENOXAPARIN 40 MG/0.4 ML (LOVENOX) SYR SC SCH (16:58)
[2016-09-30] MEDS: diphenhydrAMINE 25 MG TAB (BENADRYL) PO PRN (16:59)
[2016-10-01] VITALS: BP 122/70
[2016-10-01] MEDS: NS IV 500 ML 500 ML IV SCH ×2 (00:06→04:54)
[2016-10-01] MEDS: CATHETER FLUSH 10 ML SYR IV SCH ×3 (03:58→21:03)
[2016-10-01] MEDS: GABAPENTIN 300 MG (NEURONTIN) CAP PO SCH ×3 (06:06→21:03)
[2016-10-01] MEDS: ACYCLOVIR IV SCH ×3 (06:06→21:03)
[2016-10-01] MEDS: PANTOPRAZOLE 40 MG (PROTONIX) TAB PO SCH (06:06)
[2016-10-01] MEDS: DOXYCYCLINE 100 MG (VIBRAMYCIN) TABLET PO SCH ×2 (06:06→16:22)
[2016-10-01] MEDS: NS IV SCH ×3 (06:06→21:03)
[2016-10-01 08:00] VITALS: BP 120/71
[2016-10-01] MEDS: DULoxetine 20 MG (CYMBALTA) CAP PO SCH (08:04)
[2016-10-01] MEDS: POLYETHYLENE GLYCOL 17 GM (MIRALAX) PACK PO SCH (08:04)
[2016-10-01] MEDS: diphenhydrAMINE 25 MG TAB (BENADRYL) PO PRN (08:14)
[2016-10-01] MEDS: ONDANSETRON 4 MG/2 ML (SDV) Z0FRAN IVP PRN ×2 (08:15→16:22)
[2016-10-01] MEDS ORDERED: fentaNYL INJECTION 5,000 MCG in NS (IVPB) 0 ML IV SCH (11:09)
--- NOTE | 2016-10-01 11:09 | Progress Note-Standard ---
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 Patient was on outpatient suppressive therapy and still has intermittent flare ups. She was admitted on 09/13/2016and started on IV acyclovir 10 mg/kg every 8 hours. Pain better with Fentanyl OUTSIDE PARTS SALESMAN. Still having occasional burning and itching. No new lesions on the right side of the face. The reddish spots on the left side of the face and neck noted yesterday is continuing to improve and no new lesions seen. Vital Sign - Last 12Hours Date Time Temp Pulse Resp B/P (MAP) Pulse Ox O2 Delivery O2 Flow Rate FiO2 10/01/16 08:00 98.3 81 18 120/71 95 Room Air Physical exam showed a middle-aged female, awake and oriented, in no acute distress. HEENT normocephalic. Thickening noted over the right malar prominence is better than yesterday. The small red spots on the left side of the face and neck have improved. Neck was supple. Postsurgical and radiation changes of the right neck which is unchanged from before. Chest symmetrical. Lungs clear to auscultation without wheezes or rales. Cardiovascular exam was regular in rate and rhythm. No murmurs or gallops heard. Abdomen was soft, nontender with no hepatosplenomegaly or other masses palpable. Extremities showed no edema. Neurologic examination grossly intact without focal motor deficits. A/P: 1. Acute flare of herpes zoster infection involving right side of face. Patient is on acyclovir 800 mg IV every 8 hours day # 16. Continue. 2. Pain due to above, currently on fentanyl 75 mcg/h continuous infusion using a OUTSIDE PARTS SALESMAN with 25 g bolus every 30 minutes as needed. Will decrease CI to 50 mcg/ hr today. Continue gabapentin 300 mg every 8 hours. 3. Probable folliculitis, started on doxycycline 100 mg by mouth twice a day since 09/29/16 and improving. 4. History of metastatic malignant melanoma of right lower cervical/ supraclavicular lymph nodes without an identifiable primary, status post lymph node dissection followed by radiation therapy at [facility] [place]. Patient completed adjuvant interferon therapy times one year. Developed solitary metastatic focus on the abdominal wall which was resected. She has been free of disease for more than 10 years. 5. Increase activity level and ambulate in hallway. MARYSE VIVAS Oct 01, 2016 11:09
[2016-10-01 16:27] VITALS: BP 143/89
[2016-10-01] MEDS: ENOXAPARIN 40 MG/0.4 ML (LOVENOX) SYR SC SCH (18:09)
[2016-10-02] VITALS: BP 121/64
[2016-10-02] MEDS: ONDANSETRON 4 MG/2 ML (SDV) Z0FRAN IVP PRN ×2 (00:02→09:20)
[2016-10-02] MEDS: NS IV 500 ML 500 ML IV SCH (00:02)
[2016-10-02] MEDS ORDERED: CEFEPIME HCL 2 GM (MAXIPIME) VIAL ONE (00:12)
[2016-10-02] MEDS ORDERED: NS (IVPB) 50 ML ONE (00:13)
[2016-10-02] MEDS: CEFEPIME INJECTION 2,000 MG in NS (IVPB) 50 ML IV SCH ×3 (00:25→20:12)
[2016-10-02] MEDS: ACETAMINOPHEN 325 MG TABLET/CAPLET (TYLENOL) PO PRN ×4 (00:25→18:47)
[2016-10-02] MEDS: LEVOFLOXACIN 500 MG/100 ML IV 100 ML IV SCH ×3 (01:06→09:43)
[2016-10-02] MEDS: CATHETER FLUSH 10 ML SYR IV SCH ×3 (03:55→22:12)
[2016-10-02] MEDS: NS IV SCH ×3 (06:10→22:12)
[2016-10-02] MEDS: PANTOPRAZOLE 40 MG (PROTONIX) TAB PO SCH (06:10)
[2016-10-02] MEDS: ACYCLOVIR IV SCH ×3 (06:10→22:12)
[2016-10-02] MEDS: GABAPENTIN 300 MG (NEURONTIN) CAP PO SCH ×3 (06:10→22:12)
[2016-10-02] MEDS: DOXYCYCLINE 100 MG (VIBRAMYCIN) TABLET PO SCH ×2 (06:10→17:39)
[2016-10-02 08:00] VITALS: BP 107/53
[2016-10-02] MEDS: DULoxetine 20 MG (CYMBALTA) CAP PO SCH (09:17)
[2016-10-02] MEDS: POLYETHYLENE GLYCOL 17 GM (MIRALAX) PACK PO SCH (09:17)
[2016-10-02 16:40] VITALS: BP 128/82
--- NOTE | 2016-10-02 16:51 | Progress Note-Standard ---
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 Patient was on outpatient suppressive therapy and still has intermittent flare ups. She was admitted on 09/13/2016and started on IV acyclovir 10 mg/kg every 8 hours. Pain better with Fentanyl BATTERY CONTAINER TESTER ALUMINUM. patient not feeling better since yesterday of known and had a temperature spike of more than 102F last night. Blood cultures obtained from peripheral vein as well as left PICC line. Patient feels extremely weak today with generalized myalgia. Also complained of discomfort in the left arm. Vital Sign - Last 12Hours Date Time Temp Pulse Resp B/P (MAP) Pulse Ox O2 Delivery O2 Flow Rate FiO2 10/02/16 11:30 100.5 10/02/16 08:00 104 20 107/53 93 Room Air 10/02/16 08:00 1.00 Physical exam showed a middle-aged female, awake and oriented, in no acute distress. HEENT normocephalic. Thickening noted over the right malar prominence is continuing to improve. No new lesions noted. Neck was supple. Postsurgical and radiation changes of the right neck which is unchanged from before. Chest symmetrical. Lungs clear to auscultation without wheezes or rales. Cardiovascular exam was regular in rate and rhythm. No murmurs or gallops heard. Abdomen was soft, nontender with no hepatosplenomegaly or other masses palpable. Extremities showed no edemaauthor erythema around the left arm PICC line site. Neurologic examination grossly intact without focal motor deficits. Microbiology 10/02/16 Blood Culture - Preliminary, Resulted Gram Negative Carter See Comments A/P: 1. Acute flare of herpes zoster infection involving right side of face. Patient is on acyclovir 800 mg IV every 8 hours day # 17. Continue. 2. Pain due to above, currently on fentanyl 75 mcg/h continuous infusion using a BATTERY CONTAINER TESTER ALUMINUM with 25 g bolus every 30 minutes as needed. Will decrease CI to 50 mcg/ hr today. Continue gabapentin 300 mg every 8 hours. 3. febrile illness. One blood culture from the left PICC line growing gram- negative carter with ID pending. Started on cefepime and Levaquin last night. Continue until sensitivity available and adjust. We will have PICC line removed once another IV access is secured. 4. History of metastatic malignant melanoma of right lower cervical/ supraclavicular lymph nodes without an identifiable primary, status post lymph node dissection followed by radiation therapy at [facility] [place]. Patient completed adjuvant interferon therapy times one year. Developed solitary metastatic focus on the abdominal wall which was resected. She has been free of disease for more than 10 years. MARYSE VIVAS Oct 02, 2016 16:51
[2016-10-02] MEDS: ENOXAPARIN 40 MG/0.4 ML (LOVENOX) SYR SC SCH (17:39)
[2016-10-03] VITALS: BP 100/55
[2016-10-03] MEDS: ACETAMINOPHEN 325 MG TABLET/CAPLET (TYLENOL) PO PRN ×4 (00:56→21:14)
[2016-10-03] MEDS: NS IV 500 ML 500 ML IV SCH ×2 (02:22→08:05)
[2016-10-03] MEDS: CATHETER FLUSH 10 ML SYR IV SCH ×3 (06:05→21:14)
[2016-10-03] MEDS: GABAPENTIN 300 MG (NEURONTIN) CAP PO SCH ×3 (06:06→21:14)
[2016-10-03] MEDS: DOXYCYCLINE 100 MG (VIBRAMYCIN) TABLET PO SCH ×2 (06:06→17:36)
[2016-10-03] MEDS: NS IV SCH ×3 (06:06→21:14)
[2016-10-03] MEDS: ACYCLOVIR IV SCH ×3 (06:06→21:14)
[2016-10-03] MEDS: PANTOPRAZOLE 40 MG (PROTONIX) TAB PO SCH (06:06)
[2016-10-03 07:14] LABS: BASOPHILS % (AUTO) 1 % (0-10); EOSINOPHILS % (AUTO) 1 % (0-10); LYMPHOCYTES # (AUTO) 0.5 X 10^3 (1.0-4.0); LYMPHOCYTES % (AUTO) 27 % (12-44); MEAN CORPUSCULAR HEMOGLOBIN 30 PG (25-34); MEAN CORPUSCULAR HGB CONC 34 G/DL (32-36); MEAN CORPUSCULAR VOLUME 91 FL (80-99); MEAN PLATELET VOLUME 8.6 FL (7.4-10.4); MONOCYTES # (AUTO) 0.3 X 10^3 (0.0-1.0); MONOCYTES % (AUTO) 14 % (0-12); NEUTROPHILS # (AUTO) 1.1 X 10^3 (1.8-7.8); NEUTROPHILS % (AUTO) 58 % (42-75); PLATELET COUNT 139 10^3/uL (130-400); RED BLOOD COUNT 3.85 10^6/uL (4.35-5.85); RED CELL DISTRIBUTION WIDTH 13.7 % (10.0-14.5); WHITE BLOOD COUNT 1.9 10^3/uL (4.3-11.0)
[2016-10-03 07:38] LABS: ANION GAP 9 MMOL/L (5-14); BLOOD UREA NITROGEN 9 MG/DL (7-18); BUN/CREATININE RATIO 13; CALCIUM 8.4 MG/DL (8.5-10.1); CARBON DIOXIDE 22 MMOL/L (21-32); CHLORIDE 105 MMOL/L (98-107); CREATININE SERUM 0.71 MG/DL (0.60-1.30); GFR ESTIMATED > 60; GLUCOSE 96 MG/DL (70-105); POTASSIUM 3.6 MMOL/L (3.6-5.0); SODIUM 136 MMOL/L (135-145)
[2016-10-03 08:00] VITALS: BP 113/55
[2016-10-03] MEDS: LEVOFLOXACIN 500 MG/100 ML IV 100 ML IV SCH (08:04)
[2016-10-03] MEDS: DULoxetine 20 MG (CYMBALTA) CAP PO SCH (08:05)
[2016-10-03] MEDS: ONDANSETRON 4 MG/2 ML (SDV) Z0FRAN IVP PRN ×2 (08:05→17:37)
[2016-10-03] MEDS: POLYETHYLENE GLYCOL 17 GM (MIRALAX) PACK PO SCH (09:37)
[2016-10-03] MEDS: CEFEPIME INJECTION 2,000 MG in NS (IVPB) 50 ML IV SCH ×2 (09:37→20:08)
[2016-10-03 15:40] VITALS: BP 118/74
--- NOTE | 2016-10-03 16:13 | Progress Note-Standard ---
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 Patient was on outpatient suppressive therapy and still has intermittent flare ups. She was admitted on 09/13/2016and started on IV acyclovir 10 mg/kg every 8 hours. Patient developed a temperature spike of more than 102F on 10/01/2016. Ali cultures obtained and started on broad-spectrum antibiotics with cefepime and Levaquin. Preliminary culture growing gram-negative rods. ID and sensitivity pending. No further temperature spikes. Generalized body aches and fatigue is improving. Feels better than yesterday. PICC line has been removed. Vital Sign - Last 12Hours Date Time Temp Pulse Resp B/P (MAP) Pulse Ox O2 Delivery O2 Flow Rate FiO2 10/03/16 08:35 Room Air 10/03/16 08:00 97.2 85 20 113/55 97 10/02/16 08:00 1.00 Physical exam showed a middle-aged female, well-developed and nourished, awake and oriented, in no acute distress. HEENT normocephalic. Thickening noted over the right malar prominence is almost resolved. Neck was supple. Postsurgical and radiation changes of the right neck which is unchanged from before. Chest symmetrical. Lungs clear to auscultation without wheezes or rales. Cardiovascular exam was regular in rate and rhythm. No murmurs or gallops heard. Abdomen was soft, nontender with no hepatosplenomegaly or other masses palpable. Extremities showed no edemaauthor erythema around the left arm PICC line site. Neurologic examination grossly intact without focal motor deficits. Laboratory Tests 10/03/16 06:49: White Blood Count 1.9L, Red Blood Count 3.85L, Hemoglobin 11.7, Hematocrit 35, Mean Corpuscular Volume 91, Mean Corpuscular Hemoglobin 30, Mean Corpuscular Hemoglobin Concent 34, Red Cell Distribution Width 13.7, Platelet Count 139, Mean Platelet Volume 8.6, Neutrophils (%) (Auto) 58, Lymphocytes (%) (Auto) 27, Monocytes (%) (Auto) 14H, Eosinophils (%) (Auto) 1, Basophils (%) (Auto) 1, Neutrophils # (Auto) 1.1L, Lymphocytes # (Auto) 0.5L, Monocytes # (Auto) 0.3, Eosinophils # (Auto) 0.0, Basophils # (Auto) 0.0, Sodium Level 136, Potassium Level 3.6, Chloride Level 105, Carbon Dioxide Level 22, Anion Gap 9, Blood Urea Nitrogen 9, Creatinine 0.71, Estimat Glomerular Filtration Rate > 60, BUN/ Creatinine Ratio 13, Glucose Level 96, Calcium Level 8.4L Microbiology 10/02/16 Blood Culture - Preliminary, Resulted No growth A/P: 1. Acute flare of herpes zoster infection involving right side of face. Patient is on acyclovir 800 mg IV every 8 hours day # 17. Continue. 2. Pain due to above, currently on fentanyl 75 mcg/h continuous infusion using a NIB INSPECTOR with 25 g bolus every 30 minutes as needed. Will decrease CI to 50 mcg/ hr today. Continue gabapentin 300 mg every 8 hours. 3. febrile illness. One blood culture from the left PICC line growing gram- negative mayito, either Klebsiella or Enterobacter. Started on cefepime and Levaquin day#2. Continue until sensitivity available and adjust. PICC line removed. 4. History of metastatic malignant melanoma of right lower cervical/ supraclavicular lymph nodes without an identifiable primary, status post lymph node dissection followed by radiation therapy at [facility] [place]. Patient completed adjuvant interferon therapy times one year. Developed solitary metastatic focus on the abdominal wall which was resected. She has been free of disease for more than 10 years. 5. Leukopenia and thrombocytopenia, most likely due to febrile illness. Monitor serially. MARYSE VIVAS Oct 03, 2016 16:13
[2016-10-03] MEDS: ENOXAPARIN 40 MG/0.4 ML (LOVENOX) SYR SC SCH (17:36)
[2016-10-03 23:35] VITALS: BP 124/68
[2016-10-04] MEDS: NS IV 500 ML 500 ML IV SCH (04:53)
[2016-10-04] MEDS: CATHETER FLUSH 10 ML SYR IV SCH ×3 (04:54→21:32)
[2016-10-04] MEDS: DOXYCYCLINE 100 MG (VIBRAMYCIN) TABLET PO SCH (06:10)
[2016-10-04] MEDS: ACYCLOVIR IV SCH ×2 (06:10→14:12)
[2016-10-04] MEDS: NS IV SCH ×2 (06:10→14:12)
[2016-10-04] MEDS: GABAPENTIN 300 MG (NEURONTIN) CAP PO SCH ×3 (06:10→21:22)
[2016-10-04] MEDS: PANTOPRAZOLE 40 MG (PROTONIX) TAB PO SCH (06:10)
[2016-10-04 07:15] LABS: BASOPHILS % (AUTO) 1 % (0-10); EOSINOPHILS # (AUTO) 0.1 10^3/uL (0.0-0.3); EOSINOPHILS % (AUTO) 5 % (0-10); LYMPHOCYTES # (AUTO) 1.1 X 10^3 (1.0-4.0); LYMPHOCYTES % (AUTO) 46 % (12-44); MEAN CORPUSCULAR HEMOGLOBIN 30 PG (25-34); MEAN CORPUSCULAR HGB CONC 34 G/DL (32-36); MEAN CORPUSCULAR VOLUME 91 FL (80-99); MEAN PLATELET VOLUME 9.1 FL (7.4-10.4); MONOCYTES # (AUTO) 0.4 X 10^3 (0.0-1.0); MONOCYTES % (AUTO) 16 % (0-12); NEUTROPHILS # (AUTO) 0.8 X 10^3 (1.8-7.8); NEUTROPHILS % (AUTO) 33 % (42-75); PLATELET COUNT 167 10^3/uL (130-400); RED BLOOD COUNT 3.81 10^6/uL (4.35-5.85); RED CELL DISTRIBUTION WIDTH 13.8 % (10.0-14.5); WHITE BLOOD COUNT 2.4 10^3/uL (4.3-11.0)
[2016-10-04 07:23] LABS: ANION GAP 9 MMOL/L (5-14); BLOOD UREA NITROGEN 10 MG/DL (7-18); BUN/CREATININE RATIO 14; CALCIUM 8.8 MG/DL (8.5-10.1); CARBON DIOXIDE 23 MMOL/L (21-32); CHLORIDE 108 MMOL/L (98-107); CREATININE SERUM 0.72 MG/DL (0.60-1.30); GFR ESTIMATED > 60; GLUCOSE 98 MG/DL (70-105); POTASSIUM 3.5 MMOL/L (3.6-5.0); SODIUM 140 MMOL/L (135-145)
[2016-10-04 08:00] VITALS: BP 132/84
[2016-10-04] MEDS: DULoxetine 20 MG (CYMBALTA) CAP PO SCH (08:41)
[2016-10-04] MEDS: POLYETHYLENE GLYCOL 17 GM (MIRALAX) PACK PO SCH (08:42)
[2016-10-04] MEDS: CEFEPIME INJECTION 2,000 MG in NS (IVPB) 50 ML IV SCH (08:42)
[2016-10-04] MEDS ORDERED: LEVOFLOXACIN 500 MG TAB (LEVAQUIN) PO SCH (11:00)
[2016-10-04] MEDS: ACETAMINOPHEN 325 MG TABLET/CAPLET (TYLENOL) PO PRN (14:20)
[2016-10-04] MEDS ORDERED: fentaNYL INJECTION 5,000 MCG in NS (IVPB) 0 ML IV SCH (15:29)
--- NOTE | 2016-10-04 15:41 | Progress Note-Standard ---
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 Patient was on outpatient suppressive therapy and still has intermittent flare ups. She was admitted on 09/13/2016and started on IV acyclovir 10 mg/kg every 8 hours. Patient developed a temperature spike of more than 102F on 10/01/2016. Lai cultures obtained and started on broad-spectrum antibiotics with cefepime and Levaquin. Preliminary culture growing sensitive Klebsiella. No further temperature spikes. Feels much better than yesterday. No redness or pain in left arm PICC line site. No tingling or burning on the right side of the face. Vital Sign - Last 12Hours Date Time Temp Pulse Resp B/P (MAP) Pulse Ox O2 Delivery O2 Flow Rate FiO2 10/04/16 08:35 Room Air 10/04/16 08:00 96.8 80 24 132/84 97 10/02/16 08:00 1.00 Physical exam showed a middle-aged female, well-developed and nourished, awake and oriented, in no acute distress. HEENT normocephalic. Thickening noted over the right malar prominence is resolved. All areas of folliculitis has resolved. Neck was supple. Postsurgical and radiation changes of the right neck which is unchanged from before. No lymphadenopathy palpable. Chest symmetrical. Lungs clear to auscultation without wheezes or rales. Cardiovascular exam was regular in rate and rhythm. No murmurs or gallops heard. Abdomen was soft, nontender with no hepatosplenomegaly or other masses palpable. Extremities showed no edemaauthor erythema around the left arm PICC line site. Neurologic examination grossly intact without focal motor deficits. Laboratory Tests 10/04/16 06:46: White Blood Count 2.4L, Red Blood Count 3.81L, Hemoglobin 11.6, Hematocrit 35, Mean Corpuscular Volume 91, Mean Corpuscular Hemoglobin 30, Mean Corpuscular Hemoglobin Concent 34, Red Cell Distribution Width 13.8, Platelet Count 167, Mean Platelet Volume 9.1, Neutrophils (%) (Auto) 33L, Lymphocytes (%) (Auto) 46H , Monocytes (%) (Auto) 16H, Eosinophils (%) (Auto) 5, Basophils (%) (Auto) 1, Neutrophils # (Auto) 0.8L, Lymphocytes # (Auto) 1.1, Monocytes # (Auto) 0.4, Eosinophils # (Auto) 0.1, Basophils # (Auto) 0.0, Sodium Level 140, Potassium Level 3.5L, Chloride Level 108H, Carbon Dioxide Level 23, Anion Gap 9, Blood Urea Nitrogen 10, Creatinine 0.72, Estimat Glomerular Filtration Rate > 60, BUN/ Creatinine Ratio 14, Glucose Level 98, Calcium Level 8.8 A/P: 1. Acute flare of herpes zoster infection involving right side of face. Patient is on acyclovir 800 mg IV every 8 hours. Will DC today as symptoms have improved and lesions healed. We will start her on suppressive dose of acyclovir at 800 mg twice a day. 2. Pain due to above, currently on fentanyl 50 mcg/h continuous infusion using a EDUCATIONAL ASSISTANT with 25 g bolus every 30 minutes as needed. Will decrease CI to 25 mcg/ hr today and DC the continuous infusion tonight. Continue gabapentin 300 mg every 8 hours. 3. Febrile illness. One blood culture from the left PICC line growing sensitive Klebsiella. DC cefepime and Levaquin and start patient on Omnicef. 4. History of metastatic malignant melanoma of right lower cervical/ supraclavicular lymph nodes without an identifiable primary, status post lymph node dissection followed by radiation therapy at [facility]. Patient completed adjuvant interferon therapy times one year. Developed solitary metastatic focus on the abdominal wall which was resected. She has been free of disease for more than 10 years. 5. Leukopenia and thrombocytopenia, most likely due to febrile illness. improving today and we will monitor tomorrow morning. 6. Home soon if stable. MARYSE VIVAS Oct 04, 2016 15:41
[2016-10-04 16:00] VITALS: BP 102/52
[2016-10-04] MEDS: ENOXAPARIN 40 MG/0.4 ML (LOVENOX) SYR SC SCH (18:19)
[2016-10-04 19:29] VITALS: BP 115/68
[2016-10-04] MEDS: CEFDINIR 300 MG (OMNICEF) CAP PO SCH (20:03)
[2016-10-04] MEDS: ACYCLOVIR 400 MG TABLET (ZOVIRAX) PO SCH (20:04)
[2016-10-04 23:04] VITALS: BP 103/68
[2016-10-05] MEDS ORDERED: NS IV 500 ML 500 ML ONE (03:17)
[2016-10-05] MEDS: NS IV 500 ML 500 ML IV SCH (03:25)
[2016-10-05] MEDS: CATHETER FLUSH 10 ML SYR IV SCH ×3 (05:36→20:03)
[2016-10-05 06:01] LABS: BASOPHILS % (AUTO) 1 % (0-10); EOSINOPHILS # (AUTO) 0.1 10^3/uL (0.0-0.3); EOSINOPHILS % (AUTO) 4 % (0-10); LYMPHOCYTES # (AUTO) 1.4 X 10^3 (1.0-4.0); LYMPHOCYTES % (AUTO) 50 % (12-44); MEAN CORPUSCULAR HEMOGLOBIN 30 PG (25-34); MEAN CORPUSCULAR HGB CONC 34 G/DL (32-36); MEAN CORPUSCULAR VOLUME 90 FL (80-99); MEAN PLATELET VOLUME 8.8 FL (7.4-10.4); MONOCYTES # (AUTO) 0.2 X 10^3 (0.0-1.0); MONOCYTES % (AUTO) 9 % (0-12); NEUTROPHILS % (AUTO) 37 % (42-75); PLATELET COUNT 213 10^3/uL (130-400); RED BLOOD COUNT 3.82 10^6/uL (4.35-5.85); RED CELL DISTRIBUTION WIDTH 13.9 % (10.0-14.5); WHITE BLOOD COUNT 2.8 10^3/uL (4.3-11.0)
[2016-10-05] MEDS: PANTOPRAZOLE 40 MG (PROTONIX) TAB PO SCH (06:04)
[2016-10-05] MEDS: GABAPENTIN 300 MG (NEURONTIN) CAP PO SCH ×3 (06:04→21:37)
[2016-10-05 08:12] VITALS: BP 130/88
[2016-10-05] MEDS: DULoxetine 20 MG (CYMBALTA) CAP PO SCH (08:30)
[2016-10-05] MEDS: POLYETHYLENE GLYCOL 17 GM (MIRALAX) PACK PO SCH (08:30)
[2016-10-05] MEDS: ACETAMINOPHEN 325 MG TABLET/CAPLET (TYLENOL) PO PRN ×2 (08:32→20:00)
[2016-10-05] MEDS: CEFDINIR 300 MG (OMNICEF) CAP PO SCH ×2 (09:04→20:00)
[2016-10-05] MEDS: ACYCLOVIR 400 MG TABLET (ZOVIRAX) PO SCH ×2 (09:52→20:01)
[2016-10-05] MEDS ORDERED: CLORAZEPATE 7.5 MG (TRANXENE) TAB PO NR (10:15)
[2016-10-05 13:53] VITALS: BP 115/73
[2016-10-05 15:59] VITALS: BP 133/77
--- NOTE | 2016-10-05 17:48 | Progress Note-Standard ---
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 Patient was on outpatient suppressive therapy and still has intermittent flare ups. She was admitted on 09/13/2016and started on IV acyclovir 10 mg/kg every 8 hours. Patient developed a temperature spike of more than 102F on 10/01/2016. Lai cultures obtained and started on broad-spectrum antibiotics with cefepime and Levaquin. Preliminary culture growing sensitive Klebsiella. No further temperature spikes. patient complained of left shoulder and neck discomfort after having involuntary jerking of the whole-body last night. She complained of feeling restless and inability to sleep. Had similar symptoms when weaned off morphine in the past. No burning or tingling of the face. Vital Sign - Last 12Hours Date Time Temp Pulse Resp B/P (MAP) Pulse Ox O2 Delivery O2 Flow Rate FiO2 10/05/16 15:59 98.0 81 20 133/77 98 Room Air 10/02/16 08:00 1.00 Physical exam showed a middle-aged female, well-developed and nourished, awake and oriented, in no acute distress. HEENT normocephalic. No lesions noted on the right side of face. All areas of folliculitis has resolved. Neck was supple. Postsurgical and radiation changes of the right neck which is unchanged from before. No lymphadenopathy palpable. Chest symmetrical. Lungs clear to auscultation without wheezes or rales. Cardiovascular exam was regular in rate and rhythm. No murmurs or gallops heard. Abdomen was soft, nontender with no hepatosplenomegaly or other masses palpable. Extremities showed no edema or erythema around the left arm. Not warm to touch and not tender. Neurologic examination grossly intact without focal motor deficits. Laboratory Tests 10/05/16 05:50 A/P: 1. Acute flare of herpes zoster infection involving right side of face. Patient is on acyclovir 800 mg IV every 8 hours. Will DC today as symptoms have improved and lesions healed. We will start her on suppressive dose of acyclovir at 800 mg twice a day. 2. Pain due to above and on fentanyl HEALTHCARE FINANCIAL ANALYST until last evening. Will DC HEALTHCARE FINANCIAL ANALYST. We will use Valium 5 mg at bedtime because of restlessness and questionable withdrawal. 3. Febrile illness. One blood culture from the left PICC line growing sensitive Klebsiella. Patient on Omnicef 300 mg twice a day. Continue. 4. History of metastatic malignant melanoma of right lower cervical/ supraclavicular lymph nodes without an identifiable primary, status post lymph node dissection followed by radiation therapy at [facility]. Patient completed adjuvant interferon therapy times one year. Developed solitary metastatic focus on the abdominal wall which was resected. She has been free of disease for more than 10 years. 5. neutropenia grade 3 which is gradually improving. Recheck CBC in a.m. 6. Home tomorrow if stable. MARYSE VIVAS Oct 05, 2016 17:48
[2016-10-05] MEDS: ENOXAPARIN 40 MG/0.4 ML (LOVENOX) SYR SC SCH (18:21)
[2016-10-05] MEDS ORDERED: DIAZEPAM 5 MG (VALIUM) TABLET PO NR (21:00)
[2016-10-06] VITALS: BP 128/70
[2016-10-06] MEDS ORDERED: ALPRAZolam 0.25 MG (XANAX) TAB PO ONE (00:45)
[2016-10-06] MEDS: ACETAMINOPHEN 325 MG TABLET/CAPLET (TYLENOL) PO PRN ×2 (02:42→08:57)
[2016-10-06] MEDS: GABAPENTIN 300 MG (NEURONTIN) CAP PO SCH (06:11)
[2016-10-06] MEDS: CATHETER FLUSH 10 ML SYR IV SCH (06:11)
[2016-10-06] MEDS: PANTOPRAZOLE 40 MG (PROTONIX) TAB PO SCH (06:11)
[2016-10-06 06:13] LABS: BASOPHILS % (AUTO) 1 % (0-10); EOSINOPHILS # (AUTO) 0.1 10^3/uL (0.0-0.3); EOSINOPHILS % (AUTO) 3 % (0-10); LYMPHOCYTES # (AUTO) 1.8 X 10^3 (1.0-4.0); LYMPHOCYTES % (AUTO) 45 % (12-44); MEAN CORPUSCULAR HEMOGLOBIN 31 PG (25-34); MEAN CORPUSCULAR HGB CONC 34 G/DL (32-36); MEAN CORPUSCULAR VOLUME 90 FL (80-99); MEAN PLATELET VOLUME 8.9 FL (7.4-10.4); MONOCYTES # (AUTO) 0.4 X 10^3 (0.0-1.0); MONOCYTES % (AUTO) 9 % (0-12); NEUTROPHILS # (AUTO) 1.7 X 10^3 (1.8-7.8); NEUTROPHILS % (AUTO) 42 % (42-75); PLATELET COUNT 240 10^3/uL (130-400); RED BLOOD COUNT 4.02 10^6/uL (4.35-5.85); RED CELL DISTRIBUTION WIDTH 13.8 % (10.0-14.5); WHITE BLOOD COUNT 4.1 10^3/uL (4.3-11.0)
[2016-10-06 08:00] VITALS: BP 151/74
[2016-10-06] MEDS: DULoxetine 20 MG (CYMBALTA) CAP PO SCH (08:49)
[2016-10-06] MEDS: POLYETHYLENE GLYCOL 17 GM (MIRALAX) PACK PO SCH (08:49)
[2016-10-06] MEDS: ACYCLOVIR 400 MG TABLET (ZOVIRAX) PO SCH (08:49)
[2016-10-06] MEDS: CEFDINIR 300 MG (OMNICEF) CAP PO SCH (08:49)
[2016-10-06] MEDS ORDERED: ALPR0.25 PO (12:10)
[2016-10-06] MEDS ORDERED: CEFD300C3 PO (12:10)
[2016-10-06] MEDS ORDERED: GABA-488 PO (12:10)
--- NOTE | 2016-10-06 12:13 | Discharge Inst-Simple/Standard ---
Discharge Inst-Standard Discharge Medications New, Converted or Re-Newed RX: RX Given to Pt/Family Patient Instructions/Follow Up Plan of Care/Instructions/FU: F/U at Cancer Center on 01/04/2017 at 1100 hrs for followup. Activity as Tolerated: Yes Discharge Diet: No Restrictions MARYSE VIVAS Oct 06, 2016 12:13
[2016-10-06 12:57] VITALS: BP 151/74
--- NOTE | 2016-10-07 06:47 | DISCHARGE SUMMARY ---
DATE OF SERVICE: 10/06/2016 FINAL DIAGNOSES: 1. Recurrent herpes zoster involving the right trigeminal nerve. 2. Uncontrolled pain, due to above. 3. Secondary bacterial infection of IV access line with Klebsiella. 4. History of metastatic malignant melanoma involving right lower cervical lymph nodes without an identifiable primary, status post resection followed by radiation therapy and adjuvant interferon therapy for a year, completed several years ago. 5. Metastatic disease to the abdominal wall status post resection and on surveillance. The patient is a 45-year-old female with history of metastatic melanoma that was diagnosed several years ago. She initially underwent right neck and infraclavicular lymph node dissection followed by radiation therapy and [facility] in [place], following this she underwent adjuvant interferon therapy for a year. Within 3 months, she developed metastatic disease on the abdominal wall which was resected and has been on surveillance for several years. Last several years, she has had recurrent episodes of herpes zoster infection involving the right trigeminal nerve. She has been on suppressive per MD with acyclovir throughout and still has recurrences intermittently. She was admitted to the hospital on 09/13/2016 with significant pain, tingling with a few small lesions involving the right side of the face including forehead, tip of the nose, right cheek and right lower jaw. She was started on IV acyclovir at 10 mg/kg every 8 hours and IV fentanyl for pain control as well as gabapentin. Even after several days, she was still having new lesions pop up and the pain was not under control. Because of this, after a week, she was started on a ELECTRICAL SIGN SERVICER with fentanyl. She also did not have good venous access and a PICC-line was placed in the left arm. Because of small erythematous lesions appearing on the left side of the face which clinically was consistent with folliculitis, she was started on doxycycline 100 mg twice daily with initial improvement. During the 2nd week of treatment, she spiked a temperature and blood cultures were obtained from the PICC-line as well as the peripheral site. The blood cultures from the PICC-line grew Klebsiella that was sensitive. Initially she was started on antibiotics with cefepime and Levaquin. Once the sensitivity was available, this was changed to cefdinir 300 mg p.o. b.i.d. and the IV antibiotics were discontinued. She did have significant improvement with the IV antibiotics and all her new skin lesions disappeared. The PICC-line was removed at the time of temperature spike. Pain medications were weaned and discontinued. On 10/06/2016, she was felt stable enough to be discharged to home on: 1. Acyclovir 800 mg p.o. b.i.d. 2. Cefdinir 300 mg p.o. b.i.d. x 6 more days. 3. Xanax 0.25 mg b.i.d. p.r.n. for a few days with a total of #10 tablets dispensed. 4. Gabapentin 300 mg p.o. b.i.d. and advised to wean and discontinue as tolerated. The patient will have a 2-3 month followup at [facility] with me. Prior to this, if she is having any new or unusual symptoms, she was instructed to contact us. At the time of admission, medical consultation was obtained with Arleen Flor DO for concurrent medical care. Job ID: [id number] DocumentID: [id number] Dictated Date: 10/06/2016 13:48:25 Net Lead Developer Date: 10/07/2016 06:46:39 Dictated By: MARYSE VIVAS MD [facility]
== END 2016-10-06 13:04 | disposition home or self-care (01) | DRG 596 ==
LOC: EDUNIT# 13:53 → ER 13:56 → 4TH 14:54
PROVIDERS: ADMIT Internal Medicine Hematology & Oncology; ATTEND Internal Medicine Hematology & Oncology
PROC: 02HV33Z Insertion of Infusion Device into Superior Vena Cava, Percutaneous Approach (ICD-10-PCS; principal; 2016-09-18)
DX: B02.9 Zoster without complications (principal); B00.9 Herpesviral infection, unspecified; Z85.820 Personal history of malignant melanoma of skin; K21.9 Gastro-esophageal reflux disease without esophagitis; T80.218A Other infection due to central venous catheter, initial encounter; M79.7 Fibromyalgia; B96.1 Klebsiella pneumoniae [K. pneumoniae] as the cause of diseases classified elsewhere; F32.9 Major depressive disorder, single episode, unspecified; F41.9 Anxiety disorder, unspecified; Z92.3 Personal history of irradiation; L73.9 Follicular disorder, unspecified; R50.9 Fever, unspecified; D70.9 Neutropenia, unspecified
CPT/HCPCS: 36415; 36569; 76937; 80048; 80053; 82962; 85025; 85652; 86141; 87040; 87077; 87186; 94760; 96361; 96374; 96375

== ENCOUNTER → 2016-12-04 | Outpatient (CLI) | payer BC, MEDICARE ==
[~2016-12-04] MED LIST changes: +ALPR0.25 PO; +CEFD300C3 PO; +DULO20CA18 PO; +GABA-488 PO; +IOHEXOL 350 MG/ML 100 ML (OMNIPAQUE 350) VIAL IV ONE; +NS 100 ML (IVPB) BAG IV ONE
--- NOTE | 2016-12-04 09:25 | Diagnostic Imaging Report ---
PROCEDURE: CT head with and without contrast. TECHNIQUE: Multiple contiguous axial images were obtained through the brain before and after the administration of intravenous contrast. INDICATION: History of melanoma. Headache. 65 mL of Omnipaque 350 is administered intravenously. FINDINGS: There is no intracranial hemorrhage, edema or mass effect seen on the unenhanced phase. The brain parenchyma appears unremarkable. There is no enhancing mass. No hydrocephalus. No extra-axial fluid collection is seen. The calvarium, and the orbits appear grossly unremarkable. The frontal sinuses are atretic. There is evidence of prior sinonasal surgery with no significant mucosal thickening or obliteration in the maxillary sinuses, ethmoidal air cells or the sphenoidal sinuses. IMPRESSION: Unremarkable exam. No enhancing mass. Dictated by: Dictated on workstation # [id number]
== END ==
LOC: RAD 08:40
PROVIDERS: ATTEND Family Medicine
DX: M54.2 Cervicalgia (principal); C43.9 Malignant melanoma of skin, unspecified
CPT/HCPCS: 70470

== ENCOUNTER 2017-01-04 10:53 | Outpatient (RCR) | payer BC, MEDICARE ==
[~2017-01-04 10:53] MED LIST changes: -IOHEXOL 350 MG/ML 100 ML (OMNIPAQUE 350) VIAL IV ONE; -NS 100 ML (IVPB) BAG IV ONE
[2017-01-04 11:15] LABS: BASOPHILS % (AUTO) 0 % (0-10); EOSINOPHILS # (AUTO) 0.2 10^3/uL (0.0-0.3); EOSINOPHILS % (AUTO) 3 % (0-10); HEMATOCRIT 43 % (35-52); HEMOGLOBIN 14.7 G/DL (11.5-16.0); LYMPHOCYTES # (AUTO) 1.6 X 10^3 (1.0-4.0); LYMPHOCYTES % (AUTO) 24 % (12-44); MEAN CORPUSCULAR HEMOGLOBIN 30 PG (25-34); MEAN CORPUSCULAR HGB CONC 34 G/DL (32-36); MEAN CORPUSCULAR VOLUME 90 FL (80-99); MEAN PLATELET VOLUME 8.6 FL (7.4-10.4); MONOCYTES # (AUTO) 0.3 X 10^3 (0.0-1.0); MONOCYTES % (AUTO) 4 % (0-12); NEUTROPHILS # (AUTO) 4.6 X 10^3 (1.8-7.8); NEUTROPHILS % (AUTO) 69 % (42-75); PLATELET COUNT 336 10^3/uL (130-400); RED BLOOD COUNT 4.83 10^6/uL (4.35-5.85); RED CELL DISTRIBUTION WIDTH 12.2 % (10.0-14.5); WHITE BLOOD COUNT 6.7 10^3/uL (4.3-11.0)
[2017-01-04 11:33] LABS: ALANINE AMINOTRANSFERASE 23 U/L (0-55); ALBUMIN 4.2 GM/DL (3.2-4.5); ALKALINE PHOSPHATASE 77 U/L (40-136); BILIRUBIN,TOTAL 0.6 MG/DL (0.1-1.0); BUN/CREATININE RATIO 15; CALCIUM 9.1 MG/DL (8.5-10.1); CARBON DIOXIDE 19 MMOL/L (21-32); CHLORIDE 104 MMOL/L (98-107); CREATININE SERUM 0.81 MG/DL (0.60-1.30); GFR ESTIMATED > 60; GLUCOSE 143 MG/DL (70-105); POTASSIUM 4.1 MMOL/L (3.6-5.0); SODIUM 135 MMOL/L (135-145); TOTAL PROTEIN 7.3 GM/DL (6.4-8.2)
== END 2017-04-04 | disposition home or self-care (01) ==
LOC: ONC 10:53
PROVIDERS: ATTEND Internal Medicine Hematology & Oncology
DX: Z08 Encounter for follow-up examination after completed treatment for malignant neoplasm (principal); Z85.820 Personal history of malignant melanoma of skin; E55.9 Vitamin D deficiency, unspecified; F17.210 Nicotine dependence, cigarettes, uncomplicated; B00.9 Herpesviral infection, unspecified; G62.9 Polyneuropathy, unspecified; Z79.899 Other long term (current) drug therapy
CPT/HCPCS: 36415; 80053; 82306; 83615; 85025; 99213

== ENCOUNTER → 2017-01-22 | Outpatient (CLI) | payer BC, MEDICARE ==
--- NOTE | 2017-01-22 18:47 | Diagnostic Imaging Report ---
CLINICAL INDICATION: Patient felt lump superior to thyroid area. Patient has history of lymph node removal on right side due to melanoma. COMPARISONS: None. FINDINGS: THYROID NODULES: There is a 1.0 cm x 0.5 cm x 0.8 cm circumscribed hypoechoic nodule within the midportion of left thyroid gland. There is central Doppler flow noted. There is no other thyroid nodule seen in the right or left thyroid gland. THYROID GLAND: The right thyroid gland is small in size which may be from postop changes. Otherwise, the thyroid gland has normal shape and echogenicity. The right lobe measures 3.8 cm x 0.5 cm x 0.9 cm and the left lobe measures 4.3 cm x 1.4 cm x 1.4 cm in their three dimensions. ISTHMUS: The isthmus is unremarkable and measures 2 mm in thickness. IMPRESSION: 1: There is a 1.0 cm hypoechoic nodule within the left thyroid gland which demonstrates central Doppler flow. Given patient's history of melanoma, fine-needle aspiration is suggested for further evaluation. 2: Otherwise, the remainder of the thyroid gland is unremarkable. Dictated by: Dictated on workstation # [id number]
== END ==
LOC: RAD 14:12
PROVIDERS: ATTEND Otolaryngology Otolaryngology/Facial Plastic Surgery
DX: E04.1 Nontoxic single thyroid nodule (principal); Z85.820 Personal history of malignant melanoma of skin
CPT/HCPCS: 76536

== ENCOUNTER → 2017-01-30 | Outpatient (CLI) | payer BC ==
[~2017-01-30] VITALS: Ht 162.6 cm; Wt 93.9 kg
[2017-01-30 12:04] VITALS: BP 124/80
[2017-01-30 12:30] VITALS: BP 124/80
[2017-01-30 12:34] LABS: THYROID STIMULATING HORMONE 1.7 UIU/ML (0.35-4.94)
--- NOTE | 2017-01-30 15:51 | Diagnostic Imaging Report ---
EXAMINATION: Dedicated thyroid ultrasound performed with ultrasound guidance provided for FNA performed by Dr. Hobson. Indication: Thyroid nodule FINDINGS: Ultrasound images demonstrate a left thyroid nodule. IMPRESSION: Ultrasound guidance provided for left thyroid nodule FNA. Dictated by: Dictated on workstation # [id number]
== END ==
LOC: RAD 11:35
PROVIDERS: ATTEND Otolaryngology Otolaryngology/Facial Plastic Surgery
DX: E04.1 Nontoxic single thyroid nodule (principal)
CPT/HCPCS: 36415; 76942; 84439; 84443

== ENCOUNTER → 2017-03-29 | Outpatient (CLI) | payer BC ==
[~2017-03-29] MED LIST changes: +IOHEXOL 350 MG/ML 100 ML (OMNIPAQUE 350) VIAL IV ONE; +NS 250 ML (IVPB) BAG IV ONE
[2017-03-29 08:23] LABS: BUN/CREATININE RATIO 14; CREATININE SERUM 0.86 MG/DL (0.60-1.30); GFR ESTIMATED > 60
--- NOTE | 2017-03-29 09:37 | Diagnostic Imaging Report ---
PROCEDURE: CT angiography of the head and CT angiography of the neck with and without contrast. TECHNIQUE: Contiguous noncontrast images were obtained from the skull base through the vertex. After intravenous contrast administration, helical CT angiography of the neck was performed. Source data was reformatted into multiple MIP projections. Delayed post contrast acquisition was also obtained. INDICATION: History of melanoma, dizziness. COMPARISON: None. FINDINGS: Ventricles are normal in size, shape and position. There is no midline shift or mass effect. There is no hemorrhage or evidence of acute ischemia. The bony calvarium and visualized paranasal sinuses are normal. IMPRESSION: Negative CT head without contrast. CT ANGIO HEAD AND NECK: There is focal stenosis involving the distal right subclavian artery just inferior to the origin of the right vertebral artery. The right vertebral artery is patent but hypoplastic. The remainder of the right subclavian artery appears grossly unremarkable. The remainder of the origins of the great vessels and arch anatomy is unremarkable. There is some mild atherosclerotic disease in the carotid bulbs bilaterally. However, no additional stenosis is identified. There is no pseudoaneurysm. Visualized venous structures within the neck are unremarkable. Postoperative changes are seen involving the right neck. No obvious recurrent mass or lymphadenopathy is identified. Cervical spine is well aligned. There is no significant degeneration or osseous lesion. The [place] is grossly unremarkable. There is no aneurysm or AVM. No vascular occlusion or stenosis is seen. There is no abnormal enhancement or mass. Venous structures are grossly normal. The left vertebral artery is dominant. The course and caliber of the visualized basilar artery intact. IMPRESSION: 1. Moderate stenosis involving the right subclavian artery just inferior to the origin of the vertebral artery. Consider ultrasound to exclude right vertebral artery steal syndrome. 2. Hypoplastic right vertebral artery. 3. Minimal atherosclerotic disease of the carotid bulbs without evidence of stenosis or occlusion. 4. No intracranial vascular abnormality identified. 5. No abnormal enhancement, mass, focus of ischemia or hemorrhage. 6. Not mentioned above focal area of scarring in the right lung apex which is stable. 7. Status post right neck dissection without obvious recurrent mass or lymphadenopathy. Dictated by: Dictated on workstation # [id number]
== END ==
LOC: RAD 07:47
PROVIDERS: ATTEND Family Medicine
DX: I70.8 Atherosclerosis of other arteries (principal); H93.11 Tinnitus, right ear; Z85.820 Personal history of malignant melanoma of skin; Z98.890 Other specified postprocedural states
CPT/HCPCS: 36415; 70496; 70498; 82565; 84520

== ENCOUNTER → 2017-04-04 | Outpatient (CLI) | payer BC ==
[~2017-04-04] MED LIST changes: -IOHEXOL 350 MG/ML 100 ML (OMNIPAQUE 350) VIAL IV ONE; -NS 250 ML (IVPB) BAG IV ONE
--- NOTE | 2017-04-04 12:08 | Diagnostic Imaging Report ---
INDICATION: Right subclavian stenosis. The study is performed to evaluate for subclavian steal. FINDINGS: Grayscale, color-flow and duplex Doppler evaluation of the right subclavian artery and right vertebral artery was performed. The right subclavian artery does show elevated velocity proximally reaching 248 cm/s. There are triphasic waveforms present. The right vertebral artery is small but does demonstrate antegrade flow. No other abnormalities are seen. IMPRESSION: Right subclavian stenosis. There is no evidence of subclavian steal or retrograde flow within the right vertebral artery. Dictated by: Dictated on workstation # [id number]
== END ==
LOC: RAD 10:59
PROVIDERS: ATTEND Family Medicine
DX: I70.8 Atherosclerosis of other arteries (principal); I65.01 Occlusion and stenosis of right vertebral artery
CPT/HCPCS: 93931

== ENCOUNTER → 2017-04-23 | Outpatient (CLI) | payer BC ==
--- NOTE | 2017-04-23 12:32 | Diagnostic Imaging Report ---
PROCEDURE: US Thyroid. TECHNIQUE: Multiple real-time grayscale images were obtained of the thyroid in various projections. INDICATION: Thyroid nodules. COMPARISON: Comparison is made with prior thyroid ultrasound from 01/22/2017. FINDINGS: The right lobe of the thyroid measures 3.8 x 0.5 x 0.9 cm and the left lobe measures 4.3 x 1.4 x 1.4 cm. Well-defined hypoechoic nodule in the left lobe appears stable at 0.8 x 1.0 x 0.5 cm. No new thyroid mass is detected. IMPRESSION: Stable left lobe thyroid nodule when compared with examination from 01/22/2017. Dictated by: Dictated on workstation # [id number]
== END ==
LOC: RAD 11:35
PROVIDERS: ATTEND Otolaryngology Otolaryngology/Facial Plastic Surgery
DX: E04.2 Nontoxic multinodular goiter (principal)
CPT/HCPCS: 76536

== ENCOUNTER 2017-07-03 16:25 | Inpatient (IN) | payer BC, MEDICARE ==
[~2017-07-03] VITALS: Ht 162.6 cm; Wt 94.9 kg
--- OUTSIDE RECORDS SUMMARY | 2017-07-03 16:35 | XMS REPORT | Continuity of Care Document ---
Author Author [facility] Organization [facility] Address Unknown Phone Unavailable Allergies Active Description Code Type Severity Reaction Onset Reported/Identified Relationship to Patient Clinical Status Yes NKANo Known Allergies NKA Miscellaneous Allergy Unknown N/A 03/16/2008 Yes promethazine [id number] Drug Allergy Unknown N/A 04/13/2016 Yes vancomycin [id number] Drug Allergy Unknown RASH 09/13/2016 Medications There is no data. Problems Date Dx Coded Attending Type Code Diagnosis Diagnosed By 01/28/2010 Ot 054.9 01/28/2010 Ot 275.2 01/28/2010 Ot 451.84 01/28/2010 Ot 782.62 01/28/2010 Ot 784.99 01/28/2010 Ot 999.2 01/28/2010 Ot E930.8 01/28/2010 Ot V10.82 01/28/2010 Ot V15.88 01/28/2010 Ot V45.79 02/08/2010 Ot 054.9 02/08/2010 Ot 275.2 02/08/2010 Ot 457.1 02/08/2010 Ot 682.0 02/08/2010 Ot 787.91 02/08/2010 Ot V10.82 02/08/2010 Ot V15.3 02/08/2010 Ot V45.79 03/02/2010 Ot 054.9 03/02/2010 Ot 112.0 03/02/2010 Ot 172.5 03/02/2010 Ot 198.89 03/02/2010 Ot 457.1 03/02/2010 Ot 596.8 03/02/2010 Ot 620.2 03/02/2010 Ot 682.0 03/02/2010 Ot 704.8 03/02/2010 Ot 787.01 04/05/2010 Ot 457.1 04/05/2010 Ot 682.0 04/05/2010 Ot 682.1 04/05/2010 Ot V10.82 04/05/2010 Ot V15.3 04/05/2010 Ot V45.79 04/05/2010 Ot V58.62 04/29/2013 YOMAIRA MCKENZIE DO Ot 530.19 OTHER ESOPHAGITIS 04/29/2013 YOMAIRA MCKENZIE DO Ot 553.3 DIAPHRAGMATIC HERNIA 07/08/2013 TYLOR MENDOZA MD Ot 723.1 CERVICALGIA 07/08/2013 TYLOR MENDOZA MD Ot V57.1 PHYSICAL THERAPY NEC 09/29/2013 MARYSE VIVAS Ot 276.69 OTHER FLUID OVERLOAD 09/29/2013 MARYSE VIVAS Ot 723.1 CERVICALGIA 09/29/2013 MARYSE VIVAS Ot V10.82 HX-MALIG SKIN MELANOMA 09/29/2013 MARYSE VIVAS Ot V58.69 OTH MED,LT,CURRENT USE 09/29/2013 MARYSE VIVAS Ot V67.1 RADIOTHERAPY FOLLOW-UP 01/02/2014 HARINDER LAM, MAISHA Malin Ot 473.0 01/02/2014 HARINDER LAM, MAISHA Malin Ot 473.2 01/02/2014 HARINDER LAM, MAISHA Malin Ot 756.0 01/26/2014 HARINDER LAM, MAISHA Malin Ot 473.0 01/26/2014 HARINDER LAM, MAISHA Malin Ot 473.2 01/26/2014 HARINDER LAM, MAISHA Malin Ot 756.0 02/02/2014 HIRAL PRESTON Ot 784.1 THROAT PAIN 02/02/2014 HIRAL PRESOTN Ot 995.27 OTHER DRUG ALLERGY 02/02/2014 HIRAL PRESTON Ot E947.8 ADV EFF MEDICINAL NEC 02/03/2014 Ot 276.69 02/03/2014 Ot 723.1 02/03/2014 Ot V10.82 02/03/2014 Ot V58.69 02/03/2014 Ot V67.1 02/03/2014 ARLENE LAM, SADAF Mcdaniel Ot 473.9 02/03/2014 ARLENE LAM, SADAF Mcdaniel Ot 478.0 02/03/2014 SADAF JACOBS MD Ot V72.81 02/03/2014 SADAF JACOBS MD Ot V72.83 02/03/2014 SADAF JACOBS MD Ot V74.8 02/05/2014 MARYSE VIVAS Ot 054.9 HERPES SIMPLEX NOS 02/05/2014 SANGEETHASTEFFANIE SANTIAGOAN N Ot 457.1 OTHER LYMPHEDEMA 02/05/2014 SANGEETHA, BOBAN N Ot 784.0 HEADACHE 02/05/2014 SANGEETHA, MARYSE N Ot E879.2 ABN REACT-RADIOTHERAPY 02/05/2014 SANGEETHA, STEFFANIEAN N Ot V10.82 HX-MALIG SKIN MELANOMA 02/05/2014 SANGEETHA, MARYSE N Ot 054.9 02/05/2014 SANGEETHA, MARYSE N Ot 457.1 02/05/2014 SANGEETHA, MARYSE N Ot 784.0 02/05/2014 SANGEETHA, MARYSE N Ot E879.2 02/05/2014 SANGEETHA, MARYSE N Ot V10.82 02/07/2014 ARLENE LAM, SADAF P Ot 473.0 CHR MAXILLARY SINUSITIS 02/07/2014 ARLENE LAM, SADAF P Ot 473.2 CHR ETHMOIDAL SINUSITIS 02/07/2014 ARLENE LAM, SADAF P Ot 478.0 HYPERTRPH NASAL TURBINAT 02/17/2014 Ot 723.1 02/17/2014 Ot V10.82 02/17/2014 Ot V58.69 02/17/2014 Ot V67.1 02/17/2014 SANGEETHA, BOBAN N Ot 054.9 02/17/2014 SANGEETHA, BOBAN N Ot 300.00 02/17/2014 SANGEETHA, BOBAN N Ot 311 02/17/2014 SANGEETHA, BOBAN N Ot 530.81 02/17/2014 SANGEETHA, BOBAN N Ot 553.3 02/17/2014 SANGEETHA, BOBAN N Ot 564.1 02/17/2014 SANGEETHA, BOBAN N Ot 729.1 02/17/2014 SANGEETHA, BOBAN N Ot V10.82 02/17/2014 SANGEETHA, BOBAN N Ot V58.74 02/17/2014 SANGEETHA, BOBAN N Ot 054.9 02/17/2014 SANGEETHA, BOBAN N Ot 300.00 02/17/2014 SANGEETHA, BOBAN N Ot 311 02/17/2014 SANGEETHA, BOBAN N Ot 530.81 02/17/2014 SANGEETHA, BOBAN N Ot 553.3 02/17/2014 SANGEETHA, BOBAN N Ot 564.1 02/17/2014 SANGEETHA, BOBAN N Ot 729.1 02/17/2014 SANGEETHA, BOBAN N Ot V10.82 02/17/2014 SANGEETHA, BOBAN N Ot V58.74 02/17/2014 SANGEETHA, BOBAN N Ot 054.9 02/17/2014 SANGEETHA, BOBAN N Ot 300.00 02/17/2014 SANGEETHA, BOBAN N Ot 311 02/17/2014 SANGEETHA, BOBAN N Ot 530.81 02/17/2014 SANGEETHA, BOBAN N Ot 553.3 02/17/2014 SANGEETHA, BOBAN N Ot 564.1 02/17/2014 SANGEETHA, BOBAN N Ot 729.1 02/17/2014 SANGEETHA, BOBAN N Ot V10.82 02/17/2014 SANGEETHA, BOBAN N Ot V58.74 02/20/2014 SANGEETHA, BOBAN N Ot 054.9 02/20/2014 SANGEETHA, BOBAN N Ot 300.00 02/20/2014 SANGEETHA, BOBAN N Ot 311 02/20/2014 SANGEETHA, BOBAN N Ot 530.81 02/20/2014 SANGEETHA, BOBAN N Ot 553.3 02/20/2014 SANGEETHA, BOBAN N Ot 564.1 02/20/2014 SANGEETHA, BOBAN N Ot 729.1 02/20/2014 SANGEETHA, BOBAN N Ot V10.82 02/20/2014 SANGEETHA, BOBAN N Ot V58.74 02/22/2014 SANGEETHA, BOBAN N Ot 054.9 02/22/2014 SANGEETHA, BOBAN N Ot 300.00 02/22/2014 SANGEETHA, BOBAN N Ot 311 02/22/2014 SANGEETHA, BOBAN N Ot 530.81 02/22/2014 SANGEETHA, BOBAN N Ot 553.3 02/22/2014 SANGEETHA, BOBAN N Ot 564.1 02/22/2014 SANGEETHA, BOBAN N Ot 729.1 02/22/2014 SANGEETHA, BOBAN N Ot V10.82 02/22/2014 SANGEETHA, BOBAN N Ot V58.74 02/23/2014 SANGEETHA, BOBAN N Ot 054.9 02/23/2014 SANGEETHA, BOBAN N Ot 300.00 02/23/2014 SANGEETHA, BOBAN N Ot 311 02/23/2014 SANGEETHA, BOBAN N Ot 530.81 02/23/2014 SANGEETHA, BOBAN N Ot 553.3 02/23/2014 SANGEETHA, BOBAN N Ot 564.1 02/23/2014 SANGEETHA, BOBAN N Ot 729.1 02/23/2014 SANGEETHA, BOBAN N Ot V10.82 02/23/2014 SANGEETHA, BOBAN N Ot V58.74 02/24/2014 ARLENE LAM, SADAF P Ot 473.9 02/24/2014 ARLENE LAM, SADAF P Ot 478.0 02/24/2014 ARLENE LAM, SADAF P Ot V72.81 02/24/2014 ARLENE LAM, SADAF P Ot V72.83 02/24/2014 ARLENE LAM, SADAF P Ot V74.8 02/26/2014 Ot 276.69 02/26/2014 Ot 723.1 02/26/2014 Ot V10.82 02/26/2014 Ot V58.69 02/26/2014 Ot V67.1 02/26/2014 SANGEETHA, BOBAN N Ot 054.9 02/26/2014 SANGEETHA, BOBAN N Ot 300.00 02/26/2014 SANGEETHA, BOBAN N Ot 311 02/26/2014 SANGEETHA, BOBAN N Ot 530.81 02/26/2014 SANGEETHA, BOBAN N Ot 553.3 02/26/2014 SANGEETHA, BOBAN N Ot 564.1 02/26/2014 SANGEETHA, BOBAN N Ot 729.1 02/26/2014 SANGEETHA, BOBAN N Ot V10.82 02/26/2014 SANGEETHA, BOBAN N Ot V58.74 02/27/2014 SANGEETHA, BOBAN N Ot 054.9 02/27/2014 SANGEETHA, BOBAN N Ot 300.00 02/27/2014 SANGEETHA, BOBAN N Ot 311 02/27/2014 SANGEETHA, BOBAN N Ot 530.81 02/27/2014 SANGEETHA, BOBAN N Ot 553.3 02/27/2014 SANGEETHA, BOBAN N Ot 564.1 02/27/2014 SANGEETHA, BOBAN N Ot 729.1 02/27/2014 SANGEETHA, BOBAN N Ot V10.82 02/27/2014 SANGEETHA, BOBAN N Ot V58.74 02/27/2014 SANGEETHA, BOBAN N Ot 054.9 HERPES SIMPLEX NOS 02/27/2014 SANGEETHAMARYSE N Ot 300.00 ANXIETY STATE NOS 02/27/2014 SANGEETHAMARYSE N Ot 311 DEPRESSIVE DISORDER NEC 02/27/2014 SANGEETHAMARYSE N Ot 457.1 OTHER LYMPHEDEMA 02/27/2014 SANGEETHAMARYSE N Ot 530.81 ESOPHAGEAL REFLUX 02/27/2014 SANGEETHAMARYSE N Ot 553.3 DIAPHRAGMATIC HERNIA 02/27/2014 MARYSE VIVAS N Ot 564.1 IRRITABLE BOWEL SYNDROME 02/27/2014 SANGEETHAMARYSE N Ot 595.9 CYSTITIS NOS 02/27/2014 SANGEETHAMARYSE N Ot 597.80 URETHRITIS NOS 02/27/2014 SANGEETHAMARYSE N Ot 616.10 VAGINITIS NOS 02/27/2014 MARYSE VIVAS N Ot 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, MIDLINE 02/27/2014 MARYSE VIVAS N Ot 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 DISC DEGEN 02/27/2014 MARYSE VIVAS N Ot 729.1 MYALGIA AND MYOSITIS NOS 02/27/2014 MARYSE VIVAS N Ot V10.82 HX-MALIG SKIN MELANOMA 02/27/2014 MARYSE VIVAS N Ot V58.74 AFTERCARE POST SURGERY REPIRATORY SYSTEM 03/18/2014 SANGEETHAMARYSE SANTIAGO N Ot 457.1 03/18/2014 SANGEETHA, BOBJE N Ot 723.1 03/18/2014 SAGNEETHA, MARYSE N Ot V10.82 03/18/2014 SANGEETHA, MARYSE N Ot V58.69 03/18/2014 SANGEETHA, BOBJE N Ot V67.1 03/18/2014 SANGEETHA, BOBAN N Ot 457.1 03/18/2014 SANGEETHA, BOBAN N Ot 723.1 03/18/2014 SANGEETHA, BOBAN N Ot V10.82 03/18/2014 SANGEETHA, BOBAN N Ot V58.69 03/18/2014 SANGEETHA, BOBAN N Ot V67.1 04/01/2014 SANGEETHA, STEFFANIEAN N Ot 457.1 04/01/2014 SANGEETHA, BOBAN N Ot 723.1 04/01/2014 SANGEETHA, MARYSE N Ot V10.82 04/01/2014 MARYSE VIVAS Ot V58.69 04/01/2014 MARYSE VIVAS Ot V67.1 04/06/2014 Ot 276.69 04/06/2014 Ot 723.1 04/06/2014 Ot V10.82 04/06/2014 Ot V58.69 04/06/2014 Ot V67.1 04/06/2014 Ot 276.69 04/06/2014 Ot 723.1 04/06/2014 Ot V10.82 04/06/2014 Ot V58.69 04/06/2014 Ot V67.1 04/07/2014 Ot 172.9 04/07/2014 Ot 536.8 04/07/2014 Ot V58.69 04/07/2014 Ot 578.1 04/07/2014 Ot 787.91 04/07/2014 Ot 300.4 04/07/2014 Ot V10.82 04/07/2014 Ot V58.69 04/07/2014 Ot V67.1 04/07/2014 Ot 129 04/07/2014 Ot 780.4 04/07/2014 Ot 784.0 04/07/2014 Ot 300.4 04/07/2014 Ot 782.0 04/07/2014 Ot V10.82 04/07/2014 Ot V58.69 04/07/2014 Ot V67.1 04/07/2014 Ot 172.9 04/07/2014 Ot V10.82 04/07/2014 Ot V58.69 04/07/2014 Ot V67.1 04/07/2014 Ot V67.9 04/07/2014 Ot 625.8 04/07/2014 Ot V10.82 04/07/2014 Ot 220 04/07/2014 Ot 172.0 04/07/2014 Ot 241.0 04/07/2014 Ot 054.9 04/07/2014 Ot 457.1 04/07/2014 Ot 682.0 04/07/2014 Ot V10.82 04/07/2014 Ot V58.69 04/07/2014 Ot V67.1 04/07/2014 Ot 620.2 04/07/2014 Ot 054.9 04/07/2014 Ot 300.4 04/07/2014 Ot V10.82 04/07/2014 Ot V58.69 04/07/2014 Ot V67.1 04/07/2014 Ot V10.82 04/07/2014 Ot V76.12 04/07/2014 Ot 368.9 04/07/2014 Ot 781.3 04/07/2014 Ot V10.82 04/07/2014 Ot 054.9 04/07/2014 Ot 300.00 04/07/2014 Ot 311 04/07/2014 Ot 368.9 04/07/2014 Ot 465.9 04/07/2014 Ot 780.93 04/07/2014 Ot V10.82 04/07/2014 Ot V58.69 04/07/2014 Ot V67.1 04/07/2014 Ot 054.9 04/07/2014 Ot 300.00 04/07/2014 Ot 311 04/07/2014 Ot 585.3 04/07/2014 Ot V10.82 04/07/2014 Ot V58.69 04/07/2014 Ot V67.1 04/07/2014 Ot 300.00 04/07/2014 Ot 311 04/07/2014 Ot 780.79 04/07/2014 Ot V10.82 04/07/2014 Ot V58.69 04/07/2014 Ot V67.1 04/07/2014 Ot 723.1 04/07/2014 Ot 784.0 04/07/2014 Ot V10.82 04/07/2014 Ot 054.9 04/07/2014 Ot 300.00 04/07/2014 Ot 311 04/07/2014 Ot 782.2 04/07/2014 Ot V10.82 04/07/2014 Ot V58.69 04/07/2014 Ot V67.1 04/07/2014 Ot 054.9 04/07/2014 Ot 457.1 04/07/2014 Ot 529.6 04/07/2014 Ot V10.82 04/07/2014 Ot V58.69 04/07/2014 Ot V67.1 04/07/2014 Ot 300.00 04/07/2014 Ot 585.3 04/07/2014 Ot V10.82 04/07/2014 Ot V58.69 04/07/2014 Ot V67.1 04/07/2014 Ot 782.0 04/07/2014 Ot 784.0 04/07/2014 ALYSIA ARIAS APRN Ot 729.2 04/07/2014 Ot 723.1 04/07/2014 Ot V10.82 04/07/2014 Ot V58.69 04/07/2014 Ot V67.1 04/07/2014 ANA LAURA EDWARD RECORDAK OPERATOR Ot 054.9 04/07/2014 ANA LAURA EDWARD RECORDAK OPERATOR Ot 529.6 04/07/2014 ANA LAURA EDWARD RECORDAK OPERATOR Ot 723.4 04/07/2014 ANA LAURA EDWARD RECORDAK OPERATOR Ot V10.82 04/07/2014 ANA LAURA EDWARD RECORDAK OPERATOR Ot V58.69 04/07/2014 ANA LAURA EDWARD RECORDAK OPERATOR Ot V67.1 04/07/2014 ANA LAURA EDWARD RECORDAK OPERATOR Ot 172.9 04/07/2014 TYLOR MENDOZA MD Ot 722.51 04/07/2014 TYLOR MENDOZA MD Ot 722.52 04/07/2014 TYLOR MENDOZA MD Ot 723.4 04/07/2014 TYLOR MENDOZA MD Ot 724.6 04/07/2014 TYLOR MENDOZA MD Ot 729.1 04/07/2014 TYLOR MENDOZA MD Ot V58.69 04/07/2014 TYLOR MENDOZA MD Ot 722.51 04/07/2014 TYLOR MENDOZA MD Ot 722.52 04/07/2014 TYLOR MENDOZA MD Ot 723.1 04/07/2014 TYLOR MENDOZA MD Ot 723.4 04/07/2014 TYLOR MENDOZA MD Ot 786.50 04/07/2014 TYLOR MENDOZA MD Ot V58.69 04/07/2014 YOMAIRA MCKENZIE DO Ot V72.84 04/07/2014 SANGEETHA, BOBAN N Ot 276.69 04/07/2014 SANGEETHA, BOBAN N Ot 723.1 04/07/2014 SANGEETHA, BOBAN N Ot V10.82 04/07/2014 SANGEETHA, BOBAN N Ot V58.69 04/07/2014 SANGEETHA, BOBAN N Ot V67.1 04/07/2014 SANGEETHA, BOBAN N Ot 172.9 04/07/2014 TYLOR MENDOZA MD Ot 722.4 04/07/2014 Ot 276.69 04/07/2014 Ot 723.1 04/07/2014 Ot V10.82 04/07/2014 Ot V58.69 04/07/2014 Ot V67.1 04/07/2014 HARINDER LAM, MAISHA L Ot 473.0 04/07/2014 HARINDER LAM, MAISHA L Ot 473.2 04/07/2014 HARINDER LAM, MAISHA L Ot 756.0 04/07/2014 ARLENE LAM, SADAF P Ot 473.9 04/07/2014 ARLENE LAM, SADAF P Ot 478.0 04/07/2014 ARLENE LAM, SADAF P Ot V72.81 04/07/2014 ARLENE LAM, SADAF P Ot V72.83 04/07/2014 ARLENE LAM, SADAF P Ot V74.8 04/07/2014 SANGEETHAMARYSE SANTIAGO N Ot 457.1 04/07/2014 SANGEETHAMARYSE SANTIAGO N Ot 723.1 04/07/2014 SANGEETHAMARYSE SANTIAGO N Ot V10.82 04/07/2014 SANGEETHAMARYSE SANTIAGO N Ot V58.69 04/07/2014 SANGEETHAMARYSE SANTIAGO N Ot V67.1 04/14/2014 Ot 276.69 04/14/2014 Ot 723.1 04/14/2014 Ot V10.82 04/14/2014 Ot V58.69 04/14/2014 Ot V67.1 05/20/2014 SANGEETHAMARYSE SANTIAGO N Ot 172.9 05/20/2014 SANGEETHAMARYSE SANTIAGO N Ot 780.96 05/22/2014 Ot 787.02 05/22/2014 Ot 789.00 05/22/2014 Ot 793.11 05/29/2014 SANGEETHASTEFFANIE SANTIAGOJE N Ot 172.9 05/29/2014 SANGEETHAMARYSE SANTIAGO N Ot 780.96 07/18/2014 Ot 276.69 07/18/2014 Ot 723.1 07/18/2014 Ot V10.82 07/18/2014 Ot V58.69 07/18/2014 Ot V67.1 07/18/2014 SANGEETHAMARYSE SANTIAGO N Ot 789.00 08/11/2014 SANGEETHAMARYSE SANTIAGO N Ot V10.82 08/11/2014 SANGEETHAMARYSE SANTIAGO N Ot V58.69 08/11/2014 SANGEETHAMARYSE SANTIAGO N Ot V67.1 09/17/2014 SANGEETHAMARYSE SANTIAGO N Ot 793.11 11/05/2014 SANGEETHAMARYSE SANTIAGO N Ot 172.9 11/05/2014 SANGEETHAMARYSE SANTIAGO N Ot 723.4 11/05/2014 SANGEETHAMARYSE SANTIAGO N Ot V12.69 11/12/2014 SANGEETHAMARYSE SANTIAGO N Ot 356.9 11/12/2014 SANGEETHAMARYSE SANTIAGO N Ot 719.49 11/12/2014 SANGEETHAMARYSE SANTIAGO N Ot 723.1 11/12/2014 SANGEETHAMARYSE SANTIAGO N Ot V10.82 11/12/2014 SANGEETHAMARYSE SANTIAGO N Ot V58.69 11/12/2014 SANGEETHAMARYSE SANTIAGO N Ot V67.1 11/18/2014 SANGEETHAMARYSE SANTIAGO N Ot 172.9 MALIG MELANOMA SKIN NOS 11/18/2014 SANGEETHAMARYSE SANTIAGO N Ot 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 NEURITIS NOS 11/18/2014 MARYSE VIVAS N Ot V12.69 PERSONAL HISTORY, OTHER DISEASES OF RESP 04/08/2015 SANGEETHAMARYSE N Ot F17.210 04/08/2015 SANGEETHAMARYSE N Ot Z08 04/08/2015 SANGEETHAMARYSE N Ot Z79.899 04/08/2015 SANGEETHA STEFFANIEJE N Ot Z85.820 04/14/2015 SANGEETHAMARYSE N Ot F17.210 04/14/2015 SANGEETHAMARYSE N Ot Z08 04/14/2015 SANGEETHASTEFFANIEJE N Ot Z79.899 04/14/2015 SANGEETHAMARYSE N Ot Z85.820 05/24/2015 SANGEETHAMARYSE N Ot F17.210 NICOTINE DEPENDENCE, CIGARETTES, UNCOMPL 05/24/2015 MARYSE VIVAS N Ot Z08 ENCNTR FOR FOLLOW-UP EXAM AFTER TRTMT FO 05/24/2015 SANGEETHAMARYSE N Ot 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 [facility] (CURRENT) DRUG THERAPY 05/24/2015 SANGEETHAMARYSE N Ot Z85.820 PERSONAL HISTORY OF MALIGNANT MELANOMA O 10/04/2015 SANGEETHAMARYSE N Ot F17.210 NICOTINE DEPENDENCE, CIGARETTES, UNCOMPL 10/04/2015 SANGEETHAMARYSE SANTIAGO N Ot Z08 ENCNTR FOR FOLLOW-UP EXAM AFTER TRTMT FO 10/04/2015 MARYSE VIVAS N Ot 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 10/04/2015 MARYSE VIVAS Amrita Ot Z85.820 PERSONAL HISTORY OF MALIGNANT MELANOMA O 11/04/2015 MARYSE VIVAS Amrita Ot F17.210 NICOTINE DEPENDENCE, CIGARETTES, UNCOMPL 11/04/2015 MARYSE VIVAS Amrita Ot Z08 ENCNTR FOR FOLLOW-UP EXAM AFTER TRTMT FO 11/04/2015 MARYSE VVIAS Amrita Ot 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 11/04/2015 MARYSE VIVAS Amrita Ot Z85.820 PERSONAL HISTORY OF MALIGNANT MELANOMA O 01/09/2016 MARYSE VIVAS Amrita Ot F17.210 NICOTINE DEPENDENCE, CIGARETTES, UNCOMPL 01/09/2016 MARYSE VIVAS Amrita Ot Z08 ENCNTR FOR FOLLOW-UP EXAM AFTER TRTMT FO 01/09/2016 MARYSE VIVAS Amrita Ot 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 [facility] (CURRENT) DRUG THERAPY 04/13/2016 MARYSE VIVAS Amrtia Ot Z85.820 PERSONAL HISTORY OF MALIGNANT MELANOMA O 04/14/2016 Ot V10.82 HX-MALIG SKIN MELANOMA 04/14/2016 Ot V76.12 OTH SCREEN MAMMO-MALIGN NEOPLASM OF [place] 04/14/2016 Ot 368.9 VISUAL DISTURBANCE NOS 04/14/2016 Ot 781.3 LACK OF COORDINATION 04/14/2016 Ot V10.82 HX-MALIG SKIN MELANOMA 04/14/2016 Ot 054.9 HERPES SIMPLEX NOS 04/14/2016 Ot 300.00 ANXIETY STATE NOS 04/14/2016 Ot 311 DEPRESSIVE DISORDER NEC 04/14/2016 Ot 368.9 VISUAL DISTURBANCE NOS 04/14/2016 Ot 465.9 ACUTE URI NOS 04/14/2016 Ot 780.93 MEMORY LOSS 04/14/2016 Ot V10.82 HX-MALIG SKIN MELANOMA 04/14/2016 Ot V58.69 OTH MED,LT, CURRENT USE 04/14/2016 Ot V67.1 RADIOTHERAPY FOLLOW-UP 04/14/2016 Ot 054.9 HERPES SIMPLEX NOS 04/14/2016 Ot 300.00 ANXIETY STATE NOS 04/14/2016 Ot 311 DEPRESSIVE DISORDER NEC 04/14/2016 Ot 585.3 CHRONIC KIDNEY DISEASE, STAGE III (MODER 04/14/2016 Ot V10.82 HX-MALIG SKIN MELANOMA 04/14/2016 Ot V58.69 OTH MED,LT, CURRENT USE 04/14/2016 Ot V67.1 RADIOTHERAPY FOLLOW-UP 04/14/2016 Ot 300.00 ANXIETY STATE NOS 04/14/2016 Ot 311 DEPRESSIVE DISORDER NEC 04/14/2016 Ot 780.79 OTH MALAISE FATIGUE 04/14/2016 Ot V10.82 HX-MALIG SKIN MELANOMA 04/14/2016 Ot V58.69 OTH MED,LT, CURRENT USE 04/14/2016 Ot V67.1 RADIOTHERAPY FOLLOW-UP 04/14/2016 Ot 723.1 CERVICALGIA 04/14/2016 Ot 784.0 HEADACHE 04/14/2016 Ot V10.82 HX-MALIG SKIN MELANOMA 04/14/2016 Ot 054.9 HERPES SIMPLEX NOS 04/14/2016 Ot 300.00 ANXIETY STATE NOS 04/14/2016 Ot 311 DEPRESSIVE DISORDER NEC 04/14/2016 Ot 782.2 LOCAL SUPRFICIAL SWELLNG 04/14/2016 Ot V10.82 HX-MALIG SKIN MELANOMA 04/14/2016 Ot V58.69 OTH MED,LT, CURRENT USE 04/14/2016 Ot V67.1 RADIOTHERAPY FOLLOW-UP 04/14/2016 Ot 054.9 HERPES SIMPLEX NOS 04/14/2016 Ot 457.1 OTHER LYMPHEDEMA 04/14/2016 Ot 529.6 GLOSSODYNIA 04/14/2016 Ot V10.82 HX-MALIG SKIN MELANOMA 04/14/2016 Ot V58.69 OTH MED,LT, CURRENT USE 04/14/2016 Ot V67.1 RADIOTHERAPY FOLLOW-UP 04/14/2016 Ot 300.00 ANXIETY STATE NOS 04/14/2016 Ot 585.3 CHRONIC KIDNEY DISEASE, STAGE III (MODER 04/14/2016 Ot V10.82 HX-MALIG SKIN MELANOMA 04/14/2016 Ot V58.69 OTH MED,LT, CURRENT USE 04/14/2016 Ot V67.1 RADIOTHERAPY FOLLOW-UP 04/14/2016 Ot 782.0 SKIN SENSATION DISTURB 04/14/2016 Ot 784.0 HEADACHE 04/14/2016 HUGO ALYSIA D APRN Ot 729.2 NEURALGIA/NEURITIS NOS 04/14/2016 Ot 723.1 CERVICALGIA 04/14/2016 Ot V10.82 HX-MALIG SKIN MELANOMA 04/14/2016 Ot V58.69 OTH MED,LT, CURRENT USE 04/14/2016 Ot V67.1 RADIOTHERAPY FOLLOW-UP 04/14/2016 ANA LAURA EDWARD RECORDAK OPERATOR Ot 054.9 HERPES SIMPLEX NOS 04/14/2016 ANA LAURA EDWARD RECORDAK OPERATOR Ot 529.6 GLOSSODYNIA 04/14/2016 ANA LAURA EDWARD RECORDAK OPERATOR Ot 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 NEURITIS NOS 04/14/2016 ANA LAURA EDWARD RECORDAK OPERATOR Ot V10.82 HX-MALIG SKIN MELANOMA 04/14/2016 ANA LAURA EDWARD RECORDAK OPERATOR Ot V58.69 OTH MED,LT,CURRENT USE 04/14/2016 ANA LAURA EDWARD RECORDAK OPERATOR Ot V67.1 RADIOTHERAPY FOLLOW-UP 04/14/2016 ANA LAURA EDWARD RECORDAK OPERATOR Ot 172.9 MALIG MELANOMA SKIN NOS 04/14/2016 TYLOR MENDOZA MD Ot 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 04/14/2016 TYLOR MENDOZA MD Ot 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 DISC DEGEN 04/14/2016 TYLOR MENDOZA MD Ot 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 NEURITIS NOS 04/14/2016 TYLOR MENDOZA MD Ot 724.6 DISORDERS OF SACRUM 04/14/2016 TYLOR MENDOZA MD Ot 729.1 MYALGIA AND MYOSITIS NOS 04/14/2016 TYLOR MENDOZA MD Ot V58.69 OTH MED,LT,CURRENT USE 04/14/2016 TYLOR MENDOZA MD Ot 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 04/14/2016 TYLOR MENDOZA MD Ot 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 DISC DEGEN 04/14/2016 TYLOR MENDOZA MD Ot 723.1 CERVICALGIA 04/14/2016 TYLOR MENDOZA MD Ot 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 NEURITIS NOS 04/14/2016 TYLOR MENDOZA MD Ot 786.50 CHEST PAIN NOS 04/14/2016 TYLOR MENDOZA MD Ot V58.69 OTH MED,LT,CURRENT USE 04/14/2016 YOMAIRA MCKENZIE DO Ot V72.84 EXAM PRE-OPERATIVE NOS 04/14/2016 MARYSE VIVAS N Ot 276.69 OTHER FLUID OVERLOAD 04/14/2016 MARYSE VIVAS N Ot 723.1 CERVICALGIA 04/14/2016 MARYSE VIVAS Ot V10.82 HX-MALIG SKIN MELANOMA 04/14/2016 MARYSE VIVAS Amrita Ot V58.69 OTH MED,LT,CURRENT USE 04/14/2016 MARYSE VIVAS N Ot V67.1 RADIOTHERAPY FOLLOW-UP 04/14/2016 MARYSE VIVAS N Ot 172.9 MALIG MELANOMA SKIN NOS 04/14/2016 TYLOR MENDOZA MD Ot 722.4 CERVICAL DISC DEGEN 04/14/2016 Ot 276.69 OTHER FLUID OVERLOAD 04/14/2016 Ot 723.1 CERVICALGIA 04/14/2016 Ot V10.82 HX-MALIG SKIN MELANOMA 04/14/2016 Ot V58.69 OTH MED,LT, CURRENT USE 04/14/2016 Ot V67.1 RADIOTHERAPY FOLLOW-UP 04/14/2016 MAISHA PIZANO MD Ot 473.0 CHR MAXILLARY SINUSITIS 04/14/2016 MAISHA PIZANO MD Ot 473.2 CHR ETHMOIDAL SINUSITIS 04/14/2016 MAISHA PIZANO MD Ot 756.0 ANOMAL SKULL/FACE BONES 04/14/2016 SADAF JACOBS MD Ot 473.9 CHRONIC SINUSITIS NOS 04/14/2016 SADAF JACOBS MD Ot 478.0 HYPERTRPH NASAL TURBINAT 04/14/2016 SADAF JACOBS MD Ot V72.81 [id number] CARDIOVASCULAR 04/14/2016 SADAF JACOBS MD Ot V72.83 EXAM PRE-OPERATIVE NEC 04/14/2016 ARLENE LAM, SADAF Mcdaniel Ot V74.8 SCREEN-BACTERIAL DIS NEC 04/14/2016 MARYSE VIVAS Ot 457.1 OTHER LYMPHEDEMA 04/14/2016 MARYSE VIVAS Ot 723.1 CERVICALGIA 04/14/2016 MARYSE VIVAS Ot V10.82 HX-MALIG SKIN MELANOMA 04/14/2016 MARYSE VIVAS Ot V58.69 OTH MED,LT,CURRENT USE 04/14/2016 MARYSE VIVAS Ot V67.1 RADIOTHERAPY FOLLOW-UP 04/14/2016 MARYSE VIVAS Ot 789.00 ABDOMINAL PAIN, UNSPECIFIED SITE 04/14/2016 MARYSE VIVAS Ot 172.9 MALIG MELANOMA SKIN NOS 04/14/2016 MARYSE VIVAS Ot 780.96 GENERALIZED PAIN 04/14/2016 Ot 787.02 NAUSEA ALONE 04/14/2016 Ot 789.00 ABDOMINAL PAIN, UNSPECIFIED SITE 04/14/2016 Ot 793.11 SOLITARY PULMONARY NODULE 04/14/2016 MARYSE VIVAS Ot V10.82 HX-MALIG SKIN MELANOMA 04/14/2016 MARYSE VIVAS Ot V58.69 OTH MED,LT,CURRENT USE 04/14/2016 MARYSE VIVAS Ot V67.1 RADIOTHERAPY FOLLOW-UP 04/14/2016 MARYSE VIVAS Ot 793.11 SOLITARY PULMONARY NODULE 04/14/2016 MARYSE VIVAS Ot 356.9 IDIO PERIPH NEURPTHY NOS 04/14/2016 MARYSE VIVAS Ot 719.49 JOINT PAIN-MULT JTS 04/14/2016 MARYSE VIVAS Ot 723.1 CERVICALGIA 04/14/2016 MARYSE VIVAS Ot V10.82 HX-MALIG SKIN MELANOMA 04/14/2016 MARYSE VIVAS Ot V58.69 OTH MED,LT,CURRENT USE 04/14/2016 MARYSE VIVAS Ot V67.1 RADIOTHERAPY FOLLOW-UP 04/14/2016 MARYSE VIVAS Ot F17.210 NICOTINE DEPENDENCE, CIGARETTES, UNCOMPL 04/14/2016 MARYSE VIVAS Ot Z08 ENCNTR FOR FOLLOW-UP EXAM AFTER TRTMT FO 04/14/2016 MARYSE VIVAS Ot 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 [facility] (CURRENT) DRUG THERAPY 04/14/2016 MARYSE VIVAS N Ot Z85.820 PERSONAL HISTORY OF MALIGNANT MELANOMA O 04/19/2016 SANGEETHAMARYSE N Ot B00.9 HERPESVIRAL INFECTION, UNSPECIFIED 04/19/2016 SANGEETHAMARYSE N Ot B02.9 ZOSTER WITHOUT COMPLICATIONS 04/19/2016 MARYSE VIVAS N Ot F32.9 MAJOR DEPRESSIVE DISORDER, SINGLE EPISOD 04/19/2016 SANGEETHA MARYSE N Ot F41.9 ANXIETY DISORDER, UNSPECIFIED 04/19/2016 SANGEETHA, MARYSE N Ot H20.9 UNSPECIFIED IRIDOCYCLITIS 04/19/2016 SANGEETHA, MARYSE N Ot K11.20 SIALOADENITIS, UNSPECIFIED 04/19/2016 SANGEETHA, MARYSE N Ot K21.9 GASTRO-ESOPHAGEAL REFLUX DISEASE WITHOUT 04/19/2016 SANGEETHAMARYSE N Ot M79.7 FIBROMYALGIA 04/19/2016 SANGEETHAMARYSE N Ot Z85.820 PERSONAL HISTORY OF MALIGNANT MELANOMA O 04/20/2016 SANGEETHA, MARYSE N Ot B00.9 HERPESVIRAL INFECTION, UNSPECIFIED 04/20/2016 SANGEETHAMARYSE N Ot B02.9 ZOSTER WITHOUT COMPLICATIONS 04/20/2016 SANGEETHA, STEFFANIEJE N Ot F32.9 MAJOR DEPRESSIVE DISORDER, SINGLE EPISOD 04/20/2016 SANGEETHA MARYSE N Ot F41.9 ANXIETY DISORDER, UNSPECIFIED 04/20/2016 SANGEETHA MARYSE N Ot H20.9 UNSPECIFIED IRIDOCYCLITIS 04/20/2016 SANGEETHA MARYSE N Ot K11.20 SIALOADENITIS, UNSPECIFIED 04/20/2016 SANGEETHA MARYSE N Ot K21.9 GASTRO-ESOPHAGEAL REFLUX DISEASE WITHOUT 04/20/2016 SANGEETHAMARYSE N Ot M79.7 FIBROMYALGIA 04/20/2016 SANGEETHAMARYSE N Ot Z85.820 PERSONAL HISTORY OF MALIGNANT MELANOMA O 04/21/2016 SANGEETHA, STEFFANIEJE N Ot B00.9 HERPESVIRAL INFECTION, UNSPECIFIED 04/21/2016 SANGEETHA STEFFANIEJE N Ot B02.9 ZOSTER WITHOUT COMPLICATIONS 04/21/2016 SANGEETHA MARYSE N Ot F32.9 MAJOR DEPRESSIVE DISORDER, SINGLE EPISOD 04/21/2016 SANGEETHA, MARYSE N Ot F41.9 ANXIETY DISORDER, UNSPECIFIED 04/21/2016 SANGEETHAMARYSE Ot H20.9 UNSPECIFIED IRIDOCYCLITIS 04/21/2016 SANGEETHAMARYSE Ot K11.20 SIALOADENITIS, UNSPECIFIED 04/21/2016 SANGEETHAMARYSE Ot K21.9 GASTRO-ESOPHAGEAL REFLUX DISEASE WITHOUT 04/21/2016 SANGEETHAMARYSE Ot M79.7 FIBROMYALGIA 04/21/2016 MARYSE VIVAS Ot Z85.820 PERSONAL HISTORY OF MALIGNANT MELANOMA O 04/21/2016 SANGEETHAMARYSE Ot B00.9 HERPESVIRAL INFECTION, UNSPECIFIED 04/21/2016 SANGEETHAMARYSE Ot B02.9 ZOSTER WITHOUT COMPLICATIONS 04/21/2016 MARYSE VIVAS Ot F32.9 MAJOR DEPRESSIVE DISORDER, SINGLE EPISOD 04/21/2016 SANGEETHAMARYSE Ot F41.9 ANXIETY DISORDER, UNSPECIFIED 04/21/2016 SANGEETHAMARYSE Ot H20.9 UNSPECIFIED IRIDOCYCLITIS 04/21/2016 SANGEETHAMARYSE Ot K11.20 SIALOADENITIS, UNSPECIFIED 04/21/2016 SANGEETHAMARYSE Ot K21.9 GASTRO-ESOPHAGEAL REFLUX DISEASE WITHOUT 04/21/2016 MARYSE VIVAS Ot M79.7 FIBROMYALGIA 04/21/2016 MARYSE VIVAS Ot Z85.820 PERSONAL HISTORY OF MALIGNANT MELANOMA O 04/24/2016 MARYSE VIVAS Ot F17.210 NICOTINE DEPENDENCE, CIGARETTES, UNCOMPL 04/24/2016 MARYSE VIVAS Ot Z08 ENCNTR FOR FOLLOW-UP EXAM AFTER TRTMT FO 04/24/2016 MARYSE VIVAS Ot 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 04/24/2016 MARYSE VIVAS Ot Z85.820 PERSONAL HISTORY OF MALIGNANT MELANOMA O 04/25/2016 SANGEETHAMARYSE Ot B00.9 HERPESVIRAL INFECTION, UNSPECIFIED 04/25/2016 SANGEETHAMARYSE Ot B02.9 ZOSTER WITHOUT COMPLICATIONS 04/25/2016 MARYSE VIVAS Ot F32.9 MAJOR DEPRESSIVE DISORDER, SINGLE EPISOD 04/25/2016 MARYSE VIVAS Ot F41.9 ANXIETY DISORDER, UNSPECIFIED 04/25/2016 MARYSE VIVAS Ot H20.9 UNSPECIFIED IRIDOCYCLITIS 04/25/2016 MARYSE VIVAS Ot K11.20 SIALOADENITIS, UNSPECIFIED 04/25/2016 MARYSE VIVAS Ot K21.9 GASTRO-ESOPHAGEAL REFLUX DISEASE WITHOUT 04/25/2016 MARYSE VIVAS Ot M79.7 FIBROMYALGIA 04/25/2016 MARYSE VIVAS Ot Z85.820 PERSONAL HISTORY OF MALIGNANT MELANOMA O 05/10/2016 MARYSE VIVAS Ot F17.210 NICOTINE DEPENDENCE, CIGARETTES, UNCOMPL 05/10/2016 MARYSE VIVAS Ot Z08 ENCNTR FOR FOLLOW-UP EXAM AFTER TRTMT FO 05/10/2016 MARYSE VIVAS Ot 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 [facility] (CURRENT) DRUG THERAPY 05/10/2016 MARYSE VIVAS Ot Z85.820 PERSONAL HISTORY OF MALIGNANT MELANOMA O 07/11/2016 MARYSE VIVAS Ot F17.210 NICOTINE DEPENDENCE, CIGARETTES, UNCOMPL 07/11/2016 MARYSE VIVAS Ot Z08 ENCNTR FOR FOLLOW-UP EXAM AFTER TRTMT FO 07/11/2016 MARYSE VIVAS Ot 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 [facility] (CURRENT) DRUG THERAPY 07/11/2016 MARYSE VIVAS Ot Z85.820 PERSONAL HISTORY OF MALIGNANT MELANOMA O 09/13/2016 MARYSE VIVAS Ot F17.210 NICOTINE DEPENDENCE, CIGARETTES, UNCOMPL 09/13/2016 MARYSE VIVAS Ot Z08 ENCNTR FOR FOLLOW-UP EXAM AFTER TRTMT FO 09/13/2016 MARYSE VIVAS Ot 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 [facility] (CURRENT) DRUG THERAPY 09/13/2016 MARYSE VIVAS Ot Z85.820 PERSONAL HISTORY OF MALIGNANT MELANOMA O 09/14/2016 MARYSE VIVAS Ot B00.9 HERPESVIRAL INFECTION, UNSPECIFIED 09/14/2016 MARYSE VIVAS Ot B02.9 ZOSTER WITHOUT COMPLICATIONS 09/14/2016 MARYSE VIVAS Ot F32.9 MAJOR DEPRESSIVE DISORDER, SINGLE EPISOD 09/14/2016 MARYSE VIVAS Ot F41.9 ANXIETY DISORDER, UNSPECIFIED 09/14/2016 MARYSE VIVAS Ot K21.9 GASTRO-ESOPHAGEAL REFLUX DISEASE WITHOUT 09/14/2016 MARYSE VIVAS Ot M79.7 FIBROMYALGIA 09/14/2016 MARYSE VIVAS Ot Z85.820 PERSONAL HISTORY OF MALIGNANT MELANOMA O 10/06/2016 MARYSE VIVAS Ot B00.9 HERPESVIRAL INFECTION, UNSPECIFIED 10/06/2016 MARYSE VIVAS Ot B02.9 ZOSTER WITHOUT COMPLICATIONS 10/06/2016 MARYSE VIVAS Ot B96.1 KLEBSIELLA PNEUMONIAE THE CAUSE OF DI 10/06/2016 MARYSE VIVAS Ot D70.9 NEUTROPENIA, UNSPECIFIED 10/06/2016 MARYSE VIVAS Ot F32.9 MAJOR DEPRESSIVE DISORDER, SINGLE EPISOD 10/06/2016 MARYSE VIVAS Ot F41.9 ANXIETY DISORDER, UNSPECIFIED 10/06/2016 MARYSE VIVAS Ot K21.9 GASTRO-ESOPHAGEAL REFLUX DISEASE WITHOUT 10/06/2016 MARYSE VIVAS Ot L73.9 FOLLICULAR DISORDER, UNSPECIFIED 10/06/2016 MARYSE VIVAS Ot M79.7 FIBROMYALGIA 10/06/2016 MARYSE VIVAS Ot R50.9 FEVER, UNSPECIFIED 10/06/2016 MARYSE VIVAS Ot T80.218A OTHER INFECTION DUE TO CENTRAL VENOUS CA 10/06/2016 MARYSE VIVAS Ot Z85.820 PERSONAL HISTORY OF MALIGNANT MELANOMA O 10/06/2016 MARYSE VIVAS Ot Z92.3 PERSONAL HISTORY OF IRRADIATION 12/04/2016 Ot 300.00 ANXIETY STATE NOS 12/04/2016 Ot 311 DEPRESSIVE DISORDER NEC 12/04/2016 Ot 780.79 OTH MALAISE FATIGUE 12/04/2016 Ot V10.82 HX-MALIG SKIN MELANOMA 12/04/2016 Ot V58.69 OTH MED,LT, CURRENT USE 12/04/2016 Ot V67.1 RADIOTHERAPY FOLLOW-UP 12/04/2016 Ot 723.1 CERVICALGIA 12/04/2016 Ot 784.0 HEADACHE 12/04/2016 Ot V10.82 HX-MALIG SKIN MELANOMA 12/04/2016 Ot 054.9 HERPES SIMPLEX NOS 12/04/2016 Ot 300.00 ANXIETY STATE NOS 12/04/2016 Ot 311 DEPRESSIVE DISORDER NEC 12/04/2016 Ot 782.2 LOCAL SUPRFICIAL SWELLNG 12/04/2016 Ot V10.82 HX-MALIG SKIN MELANOMA 12/04/2016 Ot V58.69 OTH MED,LT, CURRENT USE 12/04/2016 Ot V67.1 RADIOTHERAPY FOLLOW-UP 12/04/2016 Ot 054.9 HERPES SIMPLEX NOS 12/04/2016 Ot 457.1 OTHER LYMPHEDEMA 12/04/2016 Ot 529.6 GLOSSODYNIA 12/04/2016 Ot V10.82 HX-MALIG SKIN MELANOMA 12/04/2016 Ot V58.69 OTH MED,LT, CURRENT USE 12/04/2016 Ot V67.1 RADIOTHERAPY FOLLOW-UP 12/04/2016 Ot 300.00 ANXIETY STATE NOS 12/04/2016 Ot 585.3 CHRONIC KIDNEY DISEASE, STAGE III (MODER 12/04/2016 Ot V10.82 HX-MALIG SKIN MELANOMA 12/04/2016 Ot V58.69 OTH MED,LT, CURRENT USE 12/04/2016 Ot V67.1 RADIOTHERAPY FOLLOW-UP 12/04/2016 Ot 782.0 SKIN SENSATION DISTURB 12/04/2016 Ot 784.0 HEADACHE 12/04/2016 ALYSIA ARIAS APRN Ot 729.2 NEURALGIA/NEURITIS NOS 12/04/2016 Ot 723.1 CERVICALGIA 12/04/2016 Ot V10.82 HX-MALIG SKIN MELANOMA 12/04/2016 Ot V58.69 OTH MED,LT, CURRENT USE 12/04/2016 Ot V67.1 RADIOTHERAPY FOLLOW-UP 12/04/2016 ANA LAURA EDWARD RECORDAK OPERATOR Ot 054.9 HERPES SIMPLEX NOS 12/04/2016 ANA LAURA EDWARD RECORDAK OPERATOR Ot 529.6 GLOSSODYNIA 12/04/2016 ANA LAURA EDWARD RECORDAK OPERATOR Ot 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 NEURITIS NOS 12/04/2016 ANA LAURA EDWARD RECORDAK OPERATOR Ot V10.82 HX-MALIG SKIN MELANOMA 12/04/2016 ANA LAURA EDWARD RECORDAK OPERATOR Ot V58.69 OTH MED,LT,CURRENT USE 12/04/2016 ANA LAURA EDWARD RECORDAK OPERATOR Ot V67.1 RADIOTHERAPY FOLLOW-UP 12/04/2016 ANA LAURA EDWARD RECORDAK OPERATOR Ot 172.9 MALIG MELANOMA SKIN NOS 12/04/2016 TYLOR MENDOZA MD Ot 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 12/04/2016 TYLOR MENDOZA MD Ot 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 DISC DEGEN 12/04/2016 TYLOR MENDOZA MD Ot 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 NEURITIS NOS 12/04/2016 TYLOR MENDOZA MD Ot 724.6 DISORDERS OF SACRUM 12/04/2016 TYLOR MENDOZA MD Ot 729.1 MYALGIA AND MYOSITIS NOS 12/04/2016 TYLOR MENDOZA MD Ot V58.69 OTH MED,LT,CURRENT USE 12/04/2016 TYLOR MENDOZA MD Ot 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 12/04/2016 TYLOR MENDOZA MD Ot 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 DISC DEGEN 12/04/2016 TYLOR MENDOZA MD Ot 723.1 CERVICALGIA 12/04/2016 TYLOR MENDOZA MD Ot 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 NEURITIS NOS 12/04/2016 TYLOR MENDOZA MD Ot 786.50 CHEST PAIN NOS 12/04/2016 TYLOR MENDOZA MD Ot V58.69 OTH MED,LT,CURRENT USE 12/04/2016 YOMAIRA MCKENZIE DO Ot V72.84 EXAM PRE-OPERATIVE NOS 12/04/2016 SANGEETHA, MARYSE N Ot 276.69 OTHER FLUID OVERLOAD 12/04/2016 SANGEETHAMARYSE SANTIAGO N Ot 723.1 CERVICALGIA 12/04/2016 MARYSE VIVAS Amrita Ot V10.82 HX-MALIG SKIN MELANOMA 12/04/2016 SANGEETHA STEFFANIEJE Amrita Ot V58.69 OTH MED,LT,CURRENT USE 12/04/2016 SANGEETHAMARYSE SANTIAGO N Ot V67.1 RADIOTHERAPY FOLLOW-UP 12/04/2016 SANGEETHA, MARYSE N Ot 172.9 MALIG MELANOMA SKIN NOS 12/04/2016 TYLOR MENDOZA MD Ot 722.4 CERVICAL DISC DEGEN 12/04/2016 Ot 276.69 OTHER FLUID OVERLOAD 12/04/2016 Ot 723.1 CERVICALGIA 12/04/2016 Ot V10.82 HX-MALIG SKIN MELANOMA 12/04/2016 Ot V58.69 OTH MED,LT, CURRENT USE 12/04/2016 Ot V67.1 RADIOTHERAPY FOLLOW-UP 12/04/2016 HARINDER LAM, MAISHA Malin Ot 473.0 CHR MAXILLARY SINUSITIS 12/04/2016 MAISHA PIZANO MD Ot 473.2 CHR ETHMOIDAL SINUSITIS 12/04/2016 MAISHA PIZANO MD Ot 756.0 ANOMAL SKULL/FACE BONES 12/04/2016 ARLENE LAM, SADAF P Ot 473.9 CHRONIC SINUSITIS NOS 12/04/2016 SADAF JACOBS MD Ot 478.0 HYPERTRPH NASAL TURBINAT 12/04/2016 ARLENE LAM, SADAF Mcdaniel Ot V72.81 [id number] CARDIOVASCULAR 12/04/2016 SADAF JACOBS MD Ot V72.83 EXAM PRE-OPERATIVE NEC 12/04/2016 SADAF JACOBS MD Ot V74.8 SCREEN-BACTERIAL DIS NEC 12/04/2016 SANGEETHA BOBAN N Ot 457.1 OTHER LYMPHEDEMA 12/04/2016 SANGEETHA BOBAN N Ot 723.1 CERVICALGIA 12/04/2016 SANGEETHA BOBJE N Ot V10.82 HX-MALIG SKIN MELANOMA 12/04/2016 SANGEETHA BOBAN N Ot V58.69 OTH MED,LT,CURRENT USE 12/04/2016 SANGEETHA, BOBAN N Ot V67.1 RADIOTHERAPY FOLLOW-UP 12/04/2016 SANGEETHA BOBAN N Ot 789.00 ABDOMINAL PAIN, UNSPECIFIED SITE 12/04/2016 SANGEETHA BOBAN N Ot 172.9 MALIG MELANOMA SKIN NOS 12/04/2016 SANGEETHA, BOBAN N Ot 780.96 GENERALIZED PAIN 12/04/2016 Ot 787.02 NAUSEA ALONE 12/04/2016 Ot 789.00 ABDOMINAL PAIN, UNSPECIFIED SITE 12/04/2016 Ot 793.11 SOLITARY PULMONARY NODULE 12/04/2016 SANGEETHA BOBAN N Ot V10.82 HX-MALIG SKIN MELANOMA 12/04/2016 SANGEETHA BOBAN N Ot V58.69 OTH MED,LT,CURRENT USE 12/04/2016 SANGEETHA, BOBAN N Ot V67.1 RADIOTHERAPY FOLLOW-UP 12/04/2016 SANGEETHA BOBAN N Ot 793.11 SOLITARY PULMONARY NODULE 12/04/2016 SANGEETHA BOBAN N Ot 356.9 IDIO PERIPH NEURPTHY NOS 12/04/2016 SANGEETHA BOBAN N Ot 719.49 JOINT PAIN-MULT JTS 12/04/2016 SANGEETHA BOBAN N Ot 723.1 CERVICALGIA 12/04/2016 MARYSE VIVAS N Ot V10.82 HX-MALIG SKIN MELANOMA 12/04/2016 SANGEETHA, BOBAN N Ot V58.69 OTH MED,LT,CURRENT USE 12/04/2016 MARYSE VIVAS Ot V67.1 RADIOTHERAPY FOLLOW-UP 12/04/2016 MARYSE VIVAS Amrita Ot F17.210 NICOTINE DEPENDENCE, CIGARETTES, UNCOMPL 12/04/2016 MARYSE VIVAS Amrita Ot Z08 ENCNTR FOR FOLLOW-UP EXAM AFTER TRTMT FO 12/04/2016 MARYSE VIVAS Amrita Ot 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 [facility] (CURRENT) DRUG THERAPY 12/04/2016 MARYSE VIVAS Amrita Ot Z85.820 PERSONAL HISTORY OF MALIGNANT MELANOMA O 12/04/2016 ORENDER DO, ROSALINE S Ot C43.9 MALIGNANT MELANOMA OF SKIN, UNSPECIFIED 12/04/2016 ORENDER DO, ROSALINE S Ot M54.2 CERVICALGIA 12/05/2016 ORENDER DO, ROSALINE S Ot C43.9 MALIGNANT MELANOMA OF SKIN, UNSPECIFIED 12/05/2016 ORENDER DO, ROSALINE S Ot M54.2 CERVICALGIA 12/14/2016 ORENDER DO, ROSALINE S Ot C43.9 MALIGNANT MELANOMA OF SKIN, UNSPECIFIED 12/14/2016 ORENDER DO, ROSALINE S Ot M54.2 CERVICALGIA 01/05/2017 MARYSE VIVAS Amrita Ot B00.9 HERPESVIRAL INFECTION, UNSPECIFIED 01/05/2017 MARYSE VIVAS Amrita Ot E55.9 VITAMIN D DEFICIENCY, UNSPECIFIED 01/05/2017 MARYSE VIVAS Amrita Ot F17.210 NICOTINE DEPENDENCE, CIGARETTES, UNCOMPL 01/05/2017 MARYSE VIVAS Amrita Ot G62.9 POLYNEUROPATHY, UNSPECIFIED 01/05/2017 MARYSE VIVAS Amrita Ot Z08 ENCNTR FOR FOLLOW-UP EXAM AFTER TRTMT FO 01/05/2017 MARYSE VIVAS Amrita Ot 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 [facility] (CURRENT) DRUG THERAPY 01/05/2017 MARYSE VIVAS Amrita Ot Z85.820 PERSONAL HISTORY OF MALIGNANT MELANOMA O 01/16/2017 MARYSE VIVAS Amrita Ot B00.9 HERPESVIRAL INFECTION, UNSPECIFIED 01/16/2017 MARYSE VIVAS Amrita Ot E55.9 VITAMIN D DEFICIENCY, UNSPECIFIED 01/16/2017 MARYSE VIVAS Amrita Ot F17.210 NICOTINE DEPENDENCE, CIGARETTES, UNCOMPL 01/16/2017 MARYSE VIVAS N Ot G62.9 POLYNEUROPATHY, UNSPECIFIED 01/16/2017 MARYSE VIVAS N Ot Z08 ENCNTR FOR FOLLOW-UP EXAM AFTER TRTMT FO 01/16/2017 MARYSE VIVAS N Ot 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 [facility] (CURRENT) DRUG THERAPY 01/16/2017 SANGEETHA STEFFANIEJE N Ot Z85.820 PERSONAL HISTORY OF MALIGNANT MELANOMA O 02/01/2017 SANGEETHA MARYSE N Ot B00.9 HERPESVIRAL INFECTION, UNSPECIFIED 02/01/2017 SANGEETHA MARYSE N Ot E55.9 VITAMIN D DEFICIENCY, UNSPECIFIED 02/01/2017 SANGEETHA, MARYSE N Ot F17.210 NICOTINE DEPENDENCE, CIGARETTES, UNCOMPL 02/01/2017 SANGEETHA MARYSE N Ot G62.9 POLYNEUROPATHY, UNSPECIFIED 02/01/2017 SANGEETHA MARYSE N Ot Z08 ENCNTR FOR FOLLOW-UP EXAM AFTER TRTMT FO 02/01/2017 SANGEETHA MARYSE Crowe Ot 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 [facility] (CURRENT) DRUG THERAPY 02/01/2017 SANGEETHAMARYSE N Ot Z85.820 PERSONAL HISTORY OF MALIGNANT MELANOMA O 02/02/2017 ARLENE LAM, SADAF Mcdaniel Ot E04.1 NONTOXIC SINGLE THYROID NODULE 02/02/2017 ARLENE LAM, SADAF Mcdaniel Ot Z85.820 PERSONAL HISTORY OF MALIGNANT MELANOMA O 02/23/2017 SADAF JACOBS MD Ot E04.1 NONTOXIC SINGLE THYROID NODULE 03/30/2017 ROSALINE FLOR DO S Ot H93.11 TINNITUS, RIGHT EAR 03/30/2017 ROSALINE FLOR DO S Ot I70.8 ATHEROSCLEROSIS OF OTHER ARTERIES 03/30/2017 ROSALINE FLOR DO S Ot Z85.820 PERSONAL HISTORY OF MALIGNANT MELANOMA O 03/30/2017 ROSALINE FLOR DO S Ot Z98.890 OTHER SPECIFIED POSTPROCEDURAL STATES 04/04/2017 SANGEETHAMARYSE Ot B00.9 HERPESVIRAL INFECTION, UNSPECIFIED 04/04/2017 SANGEETHAMARYSE N Ot E55.9 VITAMIN D DEFICIENCY, UNSPECIFIED 04/04/2017 SANGEETHAMARYSE Ot F17.210 NICOTINE DEPENDENCE, CIGARETTES, UNCOMPL 04/04/2017 MARYSE VIVAS Ot G62.9 POLYNEUROPATHY, UNSPECIFIED 04/04/2017 MARYSE VIVAS Ot Z08 ENCNTR FOR FOLLOW-UP EXAM AFTER TRTMT FO 04/04/2017 MARYSE VIVAS Ot 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 04/04/2017 MARYSE VIVAS Ot Z85.820 PERSONAL HISTORY OF MALIGNANT MELANOMA O 04/04/2017 Ot 054.9 HERPES SIMPLEX NOS 04/04/2017 Ot 457.1 OTHER LYMPHEDEMA 04/04/2017 Ot 529.6 GLOSSODYNIA 04/04/2017 Ot V10.82 HX-MALIG SKIN MELANOMA 04/04/2017 Ot V58.69 OTH MED,LT, CURRENT USE 04/04/2017 Ot V67.1 RADIOTHERAPY FOLLOW-UP 04/04/2017 Ot 300.00 ANXIETY STATE NOS 04/04/2017 Ot 585.3 CHRONIC KIDNEY DISEASE, STAGE III (MODER 04/04/2017 Ot V10.82 HX-MALIG SKIN MELANOMA 04/04/2017 Ot V58.69 OTH MED,LT, CURRENT USE 04/04/2017 Ot V67.1 RADIOTHERAPY FOLLOW-UP 04/04/2017 Ot 782.0 SKIN SENSATION DISTURB 04/04/2017 Ot 784.0 HEADACHE 04/04/2017 ALYSIA ARIAS APRN Ot 729.2 NEURALGIA/NEURITIS NOS 04/04/2017 Ot 723.1 CERVICALGIA 04/04/2017 Ot V10.82 HX-MALIG SKIN MELANOMA 04/04/2017 Ot V58.69 OTH MED,LT, CURRENT USE 04/04/2017 Ot V67.1 RADIOTHERAPY FOLLOW-UP 04/04/2017 ANA LAURA EDWARDP Ot 054.9 HERPES SIMPLEX NOS 04/04/2017 ANA LAURA EDWARD RECORDAK OPERATOR Ot 529.6 GLOSSODYNIA 04/04/2017 ANA LAURA EDWARD RECORDAK OPERATOR Ot 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 NEURITIS NOS 04/04/2017 ANA LAURA EDWARDP Ot V10.82 HX-MALIG SKIN MELANOMA 04/04/2017 ANA LAURA EDWARD Ot V58.69 OTH MED,LT,CURRENT USE 04/04/2017 ANA LAURA EDWARD RECORDAK OPERATOR Ot V67.1 RADIOTHERAPY FOLLOW-UP 04/04/2017 ANA LAURA EDWARD Chaim SHARP Ot 172.9 MALIG MELANOMA SKIN NOS 04/04/2017 TYLOR MENDOZA MD Ot 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 04/04/2017 TYLOR MENDOZA MD Ot 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 DISC DEGEN 04/04/2017 TYLOR MENDOZA MD Ot 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 NEURITIS NOS 04/04/2017 TYLOR MENDOZA MD Ot 724.6 DISORDERS OF SACRUM 04/04/2017 TYLOR MENDOZA MD Ot 729.1 MYALGIA AND MYOSITIS NOS 04/04/2017 TYLOR MENDOZA MD Ot V58.69 OTH MED,LT,CURRENT USE 04/04/2017 TYLOR MENDOZA MD Ot 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 04/04/2017 TYLOR MENDOZA MD Ot 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 DISC DEGEN 04/04/2017 TYLOR MENDOZA MD Ot 723.1 CERVICALGIA 04/04/2017 TYLOR MENDOZA MD Ot 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 NEURITIS NOS 04/04/2017 TYLOR MENDOZA MD Ot 786.50 CHEST PAIN NOS 04/04/2017 TYLOR MENDOZA MD Ot V58.69 OTH MED,LT,CURRENT USE 04/04/2017 YOMAIRA MCKENZIE DO Ot V72.84 EXAM PRE-OPERATIVE NOS 04/04/2017 MARYSE VIVAS Ot 276.69 OTHER FLUID OVERLOAD 04/04/2017 MARYSE VIVAS Ot 723.1 CERVICALGIA 04/04/2017 MARYSE VIVAS Ot V10.82 HX-MALIG SKIN MELANOMA 04/04/2017 MARYSE VIVAS Ot V58.69 OTH MED,LT,CURRENT USE 04/04/2017 MARYSE VIVAS Ot V67.1 RADIOTHERAPY FOLLOW-UP 04/04/2017 MARYSE VIVAS Ot 172.9 MALIG MELANOMA SKIN NOS 04/04/2017 TYLOR MENDOZA MD Ot 722.4 CERVICAL DISC DEGEN 04/04/2017 Ot 276.69 OTHER FLUID OVERLOAD 04/04/2017 Ot 723.1 CERVICALGIA 04/04/2017 Ot V10.82 HX-MALIG SKIN MELANOMA 04/04/2017 Ot V58.69 OTH MED,LT, CURRENT USE 04/04/2017 Ot V67.1 RADIOTHERAPY FOLLOW-UP 04/04/2017 HARINDER LAM, MAISHA Malin Ot 473.0 CHR MAXILLARY SINUSITIS 04/04/2017 HARINDER LAM, MAISHA Malin Ot 473.2 CHR ETHMOIDAL SINUSITIS 04/04/2017 HARINDER LAM, MAISHA Malin Ot 756.0 ANOMAL SKULL/FACE BONES 04/04/2017 ARLENE LAM, SADAF P Ot 473.9 CHRONIC SINUSITIS NOS 04/04/2017 ARLENE LAM, SADAF Mcdaniel Ot 478.0 HYPERTRPH NASAL TURBINAT 04/04/2017 ARLENE LAM, SADAF Mcdaniel Ot V72.81 [id number] CARDIOVASCULAR 04/04/2017 ARLENE LAM, SADAF Mcdaniel Ot V72.83 EXAM PRE-OPERATIVE NEC 04/04/2017 ARLENE LAM, SADAF Mcdaniel Ot V74.8 SCREEN-BACTERIAL DIS NEC 04/04/2017 MARYSE VIVAS N Ot 457.1 OTHER LYMPHEDEMA 04/04/2017 MARYSE VIVAS N Ot 723.1 CERVICALGIA 04/04/2017 MARYSE VIVAS N Ot V10.82 HX-MALIG SKIN MELANOMA 04/04/2017 MARYSE VIVAS N Ot V58.69 OTH MED,LT,CURRENT USE 04/04/2017 SANGEETHA BOBAN N Ot V67.1 RADIOTHERAPY FOLLOW-UP 04/04/2017 MARYSE VIVAS N Ot 789.00 ABDOMINAL PAIN, UNSPECIFIED SITE 04/04/2017 MARYSE VIVAS N Ot 172.9 MALIG MELANOMA SKIN NOS 04/04/2017 MARYSE VIVAS N Ot 780.96 GENERALIZED PAIN 04/04/2017 Ot 787.02 NAUSEA ALONE 04/04/2017 Ot 789.00 ABDOMINAL PAIN, UNSPECIFIED SITE 04/04/2017 Ot 793.11 SOLITARY PULMONARY NODULE 04/04/2017 MARYSE VIVAS N Ot V10.82 HX-MALIG SKIN MELANOMA 04/04/2017 MARYSE VIVAS N Ot V58.69 OTH MED,LT,CURRENT USE 04/04/2017 MARYSE VIVAS N Ot V67.1 RADIOTHERAPY FOLLOW-UP 04/04/2017 MARYSE VIVAS N Ot 793.11 SOLITARY PULMONARY NODULE 04/04/2017 MARYSE VIVAS N Ot 356.9 IDIO PERIPH NEURPTHY NOS 04/04/2017 MARYSE VIVAS N Ot 719.49 JOINT PAIN-MULT JTS 04/04/2017 MARYSE VIVAS Ot 723.1 CERVICALGIA 04/04/2017 MARYSE VIVAS Ot V10.82 HX-MALIG SKIN MELANOMA 04/04/2017 MARYSE VIVAS Ot V58.69 OTH MED,LT,CURRENT USE 04/04/2017 MARYSE VIVAS Ot V67.1 RADIOTHERAPY FOLLOW-UP 04/04/2017 MARYSE VIVAS Ot B00.9 HERPESVIRAL INFECTION, UNSPECIFIED 04/04/2017 MARYSE VIVAS Ot E55.9 VITAMIN D DEFICIENCY, UNSPECIFIED 04/04/2017 MARYSE VIVAS Ot F17.210 NICOTINE DEPENDENCE, CIGARETTES, UNCOMPL 04/04/2017 MARYSE VIVAS Ot G62.9 POLYNEUROPATHY, UNSPECIFIED 04/04/2017 MARYSE VIVAS Ot Z08 ENCNTR FOR FOLLOW-UP EXAM AFTER TRTMT FO 04/04/2017 MARYSE VIVAS Ot 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 [facility] (CURRENT) DRUG THERAPY 04/04/2017 MARYSE VIVAS Ot Z85.820 PERSONAL HISTORY OF MALIGNANT MELANOMA O 04/04/2017 MEIRNDER DO, ROSALINE S Ot C43.9 MALIGNANT MELANOMA OF SKIN, UNSPECIFIED 04/04/2017 MANPREET LEACH, ROSALINE S Ot M54.2 CERVICALGIA 04/04/2017 ARLENE LAM, SADAF Mcdaniel Ot E04.1 NONTOXIC SINGLE THYROID NODULE 04/04/2017 ARLENE LAM, SADAF Mcdaniel Ot Z85.820 PERSONAL HISTORY OF MALIGNANT MELANOMA O 04/04/2017 ARLENE LAM, SADAF Mcdaniel Ot E04.1 NONTOXIC SINGLE THYROID NODULE 04/04/2017 MEIRNDER DO, ROSALINE S Ot H93.11 TINNITUS, RIGHT EAR 04/04/2017 MEIRNDER DO, ROSALINE S Ot I70.8 ATHEROSCLEROSIS OF OTHER ARTERIES 04/04/2017 MEIRNDER DO, ROSALINE S Ot Z85.820 PERSONAL HISTORY OF MALIGNANT MELANOMA O 04/04/2017 MEIRNDER DO, ROSALINE S Ot Z98.890 OTHER SPECIFIED POSTPROCEDURAL STATES 04/05/2017 MEIRNDER DO, ROSALINE S Ot I65.01 OCCLUSION AND STENOSIS OF RIGHT VERTEBRA 04/05/2017 MEIRNDER DO, ROSALINE S Ot I70.8 ATHEROSCLEROSIS OF OTHER ARTERIES 04/05/2017 MARYSE VIVAS Ot B00.9 HERPESVIRAL INFECTION, UNSPECIFIED 04/05/2017 MARYSE VIVAS Ot E55.9 VITAMIN D DEFICIENCY, UNSPECIFIED 04/05/2017 MARYSE VIVAS Ot F17.210 NICOTINE DEPENDENCE, CIGARETTES, UNCOMPL 04/05/2017 MARYSE VIVAS Ot G62.9 POLYNEUROPATHY, UNSPECIFIED 04/05/2017 MARYSE VIVAS Ot Z08 ENCNTR FOR FOLLOW-UP EXAM AFTER TRTMT FO 04/05/2017 MARYSE VIVAS Ot 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 [facility] (CURRENT) DRUG THERAPY 04/05/2017 MARYSE VIVAS Ot Z85.820 PERSONAL HISTORY OF MALIGNANT MELANOMA O 04/11/2017 MEIRNDER DO, ROSALINE S Ot H93.11 TINNITUS, RIGHT EAR 04/11/2017 MEIRNDER ELHAM LEACHLINE S Ot I70.8 ATHEROSCLEROSIS OF OTHER ARTERIES 04/11/2017 ORENDER DOALBERROSALINE S Ot Z85.820 PERSONAL HISTORY OF MALIGNANT MELANOMA O 04/11/2017 MEIRNDER ALBER LEACHROSALINE S Ot Z98.890 OTHER SPECIFIED POSTPROCEDURAL STATES 04/24/2017 ARLENE LAM, SADAF Mcdaniel Ot E04.2 NONTOXIC MULTINODULAR GOITER 05/09/2017 ARLENE LAM, SADAF Mcdaniel Ot E04.2 NONTOXIC MULTINODULAR GOITER 05/11/2017 ALYSIA ARIAS APRN Ot 729.2 NEURALGIA/NEURITIS NOS 05/11/2017 Ot 723.1 CERVICALGIA 05/11/2017 Ot V10.82 HX-MALIG SKIN MELANOMA 05/11/2017 Ot V58.69 OT MED,LT, CURRENT USE 05/11/2017 Ot V67.1 RADIOTHERAPY FOLLOW-UP 05/11/2017 ANA LAURA EDWARD RECORDAK OPERATOR Ot 054.9 HERPES SIMPLEX NOS 05/11/2017 ANA LAURA EDWARD RECORDAK OPERATOR Ot 529.6 GLOSSODYNIA 05/11/2017 ANA LAURA EDWARD RECORDAK OPERATOR Ot 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 NEURITIS NOS 05/11/2017 ANA LAURA EDWARD RECORDAK OPERATOR Ot V10.82 HX-MALIG SKIN MELANOMA 05/11/2017 ANA LAURA EDWARD RECORDAK OPERATOR Ot V58.69 OTH MED,LT,CURRENT USE 05/11/2017 ANA LAURA EDWARD RECORDAK OPERATOR Ot V67.1 RADIOTHERAPY FOLLOW-UP 05/11/2017 EDWARDANA LAURA Rucker Chaim RECORDAK OPERATOR Ot 172.9 MALIG MELANOMA SKIN NOS 05/11/2017 TYLOR MENDOZA MD Ot 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 05/11/2017 TYLOR MENDOZA MD Ot 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 DISC DEGEN 05/11/2017 TYLOR MENDOZA MD Ot 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 NEURITIS NOS 05/11/2017 TYLOR MENDOZA MD Ot 724.6 DISORDERS OF SACRUM 05/11/2017 TYLOR MENDOZA MD Ot 729.1 MYALGIA AND MYOSITIS NOS 05/11/2017 TYLOR MENDOZA MD Ot V58.69 OTH MED,LT,CURRENT USE 05/11/2017 TYLOR MENDOZA MD Ot 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 05/11/2017 TYLOR MENDOZA MD Ot 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 DISC DEGEN 05/11/2017 TYLOR MENDOZA MD Ot 723.1 CERVICALGIA 05/11/2017 TYLOR MENDOZA MD Ot 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 NEURITIS NOS 05/11/2017 TYLOR MENDOZA MD Ot 786.50 CHEST PAIN NOS 05/11/2017 TYLOR MENDOZA MD Ot V58.69 OTH MED,LT,CURRENT USE 05/11/2017 YOMAIRA MCKENZIE DO Ot V72.84 EXAM PRE-OPERATIVE NOS 05/11/2017 MARYSE VIVAS Ot 276.69 OTHER FLUID OVERLOAD 05/11/2017 MARYSE VIVAS Ot 723.1 CERVICALGIA 05/11/2017 MARYSE VIVAS Ot V10.82 HX-MALIG SKIN MELANOMA 05/11/2017 MARYSE VIVAS Ot V58.69 OTH MED,LT,CURRENT USE 05/11/2017 MARYSE VIVAS Ot V67.1 RADIOTHERAPY FOLLOW-UP 05/11/2017 MARYSE VIVAS N Ot 172.9 MALIG MELANOMA SKIN NOS 05/11/2017 TYLOR MENDOZA MD Ot 722.4 CERVICAL DISC DEGEN 05/11/2017 Ot 276.69 OTHER FLUID OVERLOAD 05/11/2017 Ot 723.1 CERVICALGIA 05/11/2017 Ot V10.82 HX-MALIG SKIN MELANOMA 05/11/2017 Ot V58.69 OTH MED,LT, CURRENT USE 05/11/2017 Ot V67.1 RADIOTHERAPY FOLLOW-UP 05/11/2017 HARINDER LAM, MAISHA L Ot 473.0 CHR MAXILLARY SINUSITIS 05/11/2017 HARINDER LAM, MAISHA L Ot 473.2 CHR ETHMOIDAL SINUSITIS 05/11/2017 HARINDER LAM, MAISHA L Ot 756.0 ANOMAL SKULL/FACE BONES 05/11/2017 ARLENE LAM, SADAF P Ot 473.9 CHRONIC SINUSITIS NOS 05/11/2017 ARLENE LAM, SADAF P Ot 478.0 HYPERTRPH NASAL TURBINAT 05/11/2017 ARLENE LAM, SADAF Mcdaniel Ot V72.81 SOVP-AMS-QRBOGOFUS CARDIOVASCULAR 05/11/2017 ARLENE LAM, SADAF P Ot V72.83 EXAM PRE-OPERATIVE NEC 05/11/2017 ARLENE LAM, SADAF P Ot V74.8 SCREEN-BACTERIAL DIS NEC 05/11/2017 MARYSE VIVAS N Ot 457.1 OTHER LYMPHEDEMA 05/11/2017 MARYSE VIVAS N Ot 723.1 CERVICALGIA 05/11/2017 MARYSE VIVAS N Ot V10.82 HX-MALIG SKIN MELANOMA 05/11/2017 SANGEETHAMARYSE N Ot V58.69 OTH MED,LT,CURRENT USE 05/11/2017 MARYSE VIVAS N Ot V67.1 RADIOTHERAPY FOLLOW-UP 05/11/2017 MARYSE VIVAS N Ot 789.00 ABDOMINAL PAIN, UNSPECIFIED SITE 05/11/2017 MARYSE VIVAS N Ot 172.9 MALIG MELANOMA SKIN NOS 05/11/2017 MARYSE VIVAS N Ot 780.96 GENERALIZED PAIN 05/11/2017 Ot 787.02 NAUSEA ALONE 05/11/2017 Ot 789.00 ABDOMINAL PAIN, UNSPECIFIED SITE 05/11/2017 Ot 793.11 SOLITARY PULMONARY NODULE 05/11/2017 MARYSE VIVAS N Ot V10.82 HX-MALIG SKIN MELANOMA 05/11/2017 SANGEETHAMARYSE N Ot V58.69 OTH MED,LT,CURRENT USE 05/11/2017 STEFFANIE VIVASAN N Ot V67.1 RADIOTHERAPY FOLLOW-UP 05/11/2017 MARYSE VIVAS N Ot 793.11 SOLITARY PULMONARY NODULE 05/11/2017 MARYSE VIVAS Ot 356.9 IDIO PERIPH NEURPTHY NOS 05/11/2017 MARYSE VIVAS Ot 719.49 JOINT PAIN-MULT JTS 05/11/2017 MARYSE VIVAS Ot 723.1 CERVICALGIA 05/11/2017 MARYSE VIVAS Ot V10.82 HX-MALIG SKIN MELANOMA 05/11/2017 MARYSE VIVAS Ot V58.69 OTH MED,LT,CURRENT USE 05/11/2017 MARYSE VIVAS Ot V67.1 RADIOTHERAPY FOLLOW-UP 05/16/2017 MARYSE VIVAS Ot F17.210 NICOTINE DEPENDENCE, CIGARETTES, UNCOMPL 05/16/2017 MARYSE VIVAS Ot Z08 ENCNTR FOR FOLLOW-UP EXAM AFTER TRTMT FO 05/16/2017 MARYSE VIVAS Ot 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 [facility] (CURRENT) DRUG THERAPY 05/16/2017 MARYSE VIVAS Ot Z85.820 PERSONAL HISTORY OF MALIGNANT MELANOMA O 05/31/2017 Ot 054.9 HERPES SIMPLEX NOS 05/31/2017 Ot 457.1 OTHER LYMPHEDEMA 05/31/2017 Ot 529.6 GLOSSODYNIA 05/31/2017 Ot V10.82 HX-MALIG SKIN MELANOMA 05/31/2017 Ot V58.69 OTH MED,LT, CURRENT USE 05/31/2017 Ot V67.1 RADIOTHERAPY FOLLOW-UP 05/31/2017 Ot 300.00 ANXIETY STATE NOS 05/31/2017 Ot 585.3 CHRONIC KIDNEY DISEASE, STAGE III (MODER 05/31/2017 Ot V10.82 HX-MALIG SKIN MELANOMA 05/31/2017 Ot V58.69 OTH MED,LT, CURRENT USE 05/31/2017 Ot V67.1 RADIOTHERAPY FOLLOW-UP 05/31/2017 Ot 782.0 SKIN SENSATION DISTURB 05/31/2017 Ot 784.0 HEADACHE 05/31/2017 ALYSIA ARIAS APRN Ot 729.2 NEURALGIA/NEURITIS NOS 05/31/2017 Ot 723.1 CERVICALGIA 05/31/2017 Ot V10.82 HX-MALIG SKIN MELANOMA 05/31/2017 Ot V58.69 OTH MED,LT, CURRENT USE 05/31/2017 Ot V67.1 RADIOTHERAPY FOLLOW-UP 05/31/2017 ANA LAURA EDWARD RECORDAK OPERATOR Ot 054.9 HERPES SIMPLEX NOS 05/31/2017 ANA LAURA EDWARD RECORDAK OPERATOR Ot 529.6 GLOSSODYNIA 05/31/2017 ANA LAURA EDWARD RECORDAK OPERATOR Ot 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 NEURITIS NOS 05/31/2017 ANA LAURA EDWARD RECORDAK OPERATOR Ot V10.82 HX-MALIG SKIN MELANOMA 05/31/2017 ANA LAURA EDWARD RECORDAK OPERATOR Ot V58.69 OTH MED,LT,CURRENT USE 05/31/2017 ANA LAURA EDWARD RECORDAK OPERATOR Ot V67.1 RADIOTHERAPY FOLLOW-UP 05/31/2017 ANA LAURA EDWARD 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 OPERATOR Ot 172.9 MALIG MELANOMA SKIN NOS 05/31/2017 TYLOR MENDOZA MD Ot 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 05/31/2017 TYLOR MENDOZA MD Ot 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 DISC DEGEN 05/31/2017 TYLOR MENDOZA MD Ot 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 NEURITIS NOS 05/31/2017 TYLOR MENDOZA MD Ot 724.6 DISORDERS OF SACRUM 05/31/2017 TYLOR MENDOZA MD Ot 729.1 MYALGIA AND MYOSITIS NOS 05/31/2017 TYLOR MENDOZA MD, Ot V58.69 OTH MED,LT,CURRENT USE 05/31/2017 TYLOR MENDOZA MD Ot 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 05/31/2017 TYLOR MENDOZA MD Ot 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 DISC DEGEN 05/31/2017 TYLOR MENDOZA MD Ot 723.1 CERVICALGIA 05/31/2017 TYLOR MENDOZA MD Ot 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 NEURITIS NOS 05/31/2017 TYLOR MENDOZA MD Ot 786.50 CHEST PAIN NOS 05/31/2017 TYLOR MENDOZA MD Ot V58.69 OTH MED,LT,CURRENT USE 05/31/2017 YOMAIRA MCKENZIE DO Ot V72.84 EXAM PRE-OPERATIVE NOS 05/31/2017 MARYSE VIVAS Ot 276.69 OTHER FLUID OVERLOAD 05/31/2017 MARYSE VIVAS Ot 723.1 CERVICALGIA 05/31/2017 MARYSE VIVAS Ot V10.82 HX-MALIG SKIN MELANOMA 05/31/2017 SANGEETHA, BOBAN N Ot V58.69 OTH MED,LT,CURRENT USE 05/31/2017 MARYSE VIVAS N Ot V67.1 RADIOTHERAPY FOLLOW-UP 05/31/2017 MARYSE VIVAS N Ot 172.9 MALIG MELANOMA SKIN NOS 05/31/2017 KELLY LAM, TYLOR Melgar Ot 722.4 CERVICAL DISC DEGEN 05/31/2017 Ot 276.69 OTHER FLUID OVERLOAD 05/31/2017 Ot 723.1 CERVICALGIA 05/31/2017 Ot V10.82 HX-MALIG SKIN MELANOMA 05/31/2017 Ot V58.69 OTH MED,LT, CURRENT USE 05/31/2017 Ot V67.1 RADIOTHERAPY FOLLOW-UP 05/31/2017 HARINDER LAM, MAISHA Malin Ot 473.0 CHR MAXILLARY SINUSITIS 05/31/2017 HARINDER LAM, MAISHA L Ot 473.2 CHR ETHMOIDAL SINUSITIS 05/31/2017 HARINDER LAM, MAISHA L Ot 756.0 ANOMAL SKULL/FACE BONES 05/31/2017 ARLENE LAM, SADAF Mcdaniel Ot 473.9 CHRONIC SINUSITIS NOS 05/31/2017 ARLENE LAM, SADAF P Ot 478.0 HYPERTRPH NASAL TURBINAT 05/31/2017 ARLENE LAM, SADAF Mcdaniel Ot V72.81 HBGD-PWC-AHIFNFNTE CARDIOVASCULAR 05/31/2017 ARLENE LAM, SADAF Mcdaniel Ot V72.83 EXAM PRE-OPERATIVE NEC 05/31/2017 ARLENE LAM, SADAF Mcdaniel Ot V74.8 SCREEN-BACTERIAL DIS NEC 05/31/2017 MARYSE VIVAS N Ot 457.1 OTHER LYMPHEDEMA 05/31/2017 MARYSE VIVAS N Ot 723.1 CERVICALGIA 05/31/2017 MARYSE VIVAS N Ot V10.82 HX-MALIG SKIN MELANOMA 05/31/2017 MARYSE VIVAS N Ot V58.69 OTH MED,LT,CURRENT USE 05/31/2017 MARYSE VIVAS N Ot V67.1 RADIOTHERAPY FOLLOW-UP 05/31/2017 MARYSE VIVAS N Ot 789.00 ABDOMINAL PAIN, UNSPECIFIED SITE 05/31/2017 MARYSE VIVAS N Ot 172.9 MALIG MELANOMA SKIN NOS 05/31/2017 MARYSE VIVAS N Ot 780.96 GENERALIZED PAIN 05/31/2017 Ot 787.02 NAUSEA ALONE 05/31/2017 Ot 789.00 ABDOMINAL PAIN, UNSPECIFIED SITE 05/31/2017 Ot 793.11 SOLITARY PULMONARY NODULE 05/31/2017 MARYSE VIVAS Ot V10.82 HX-MALIG SKIN MELANOMA 05/31/2017 MARYSE VIVAS Ot V58.69 OTH MED,LT,CURRENT USE 05/31/2017 MARYSE VIVAS Ot V67.1 RADIOTHERAPY FOLLOW-UP 05/31/2017 MARYSE VIVAS Ot 793.11 SOLITARY PULMONARY NODULE 05/31/2017 MARYSE VIVAS Ot 356.9 IDIO PERIPH NEURPTHY NOS 05/31/2017 MARYSE VIVAS Ot 719.49 JOINT PAIN-MULT JTS 05/31/2017 MARYSE VIVAS Ot 723.1 CERVICALGIA 05/31/2017 MARYSE VIVAS Ot V10.82 HX-MALIG SKIN MELANOMA 05/31/2017 MARYSE VIVAS Ot V58.69 OTH MED,LT,CURRENT USE 05/31/2017 MARYSE VIVAS Ot V67.1 RADIOTHERAPY FOLLOW-UP 05/31/2017 MARYSE VIVAS Ot F17.210 NICOTINE DEPENDENCE, CIGARETTES, UNCOMPL 05/31/2017 MARYSE VIVAS Ot Z08 ENCNTR FOR FOLLOW-UP EXAM AFTER TRTMT FO 05/31/2017 MARYSE VIVAS Ot 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 [facility] (CURRENT) DRUG THERAPY 05/31/2017 MARYSE VIVAS Ot Z85.820 PERSONAL HISTORY OF MALIGNANT MELANOMA O 05/31/2017 ROSALINE FLOR DO S Ot C43.9 MALIGNANT MELANOMA OF SKIN, UNSPECIFIED 05/31/2017 ROSALINE FLOR DO S Ot M54.2 CERVICALGIA 05/31/2017 SADAF JACOBS MD Ot E04.1 NONTOXIC SINGLE THYROID NODULE 05/31/2017 SADAF JACOBS MD Ot Z85.820 PERSONAL HISTORY OF MALIGNANT MELANOMA O 05/31/2017 SADAF JACOBS MD Ot E04.1 NONTOXIC SINGLE THYROID NODULE 05/31/2017 ROSALINE FLOR DO S Ot H93.11 TINNITUS, RIGHT EAR 05/31/2017 ALBER FLOR DOQUELINE S Ot I70.8 ATHEROSCLEROSIS OF OTHER ARTERIES 05/31/2017 ALBER FLOR DOQUELINE S Ot Z85.820 PERSONAL HISTORY OF MALIGNANT MELANOMA O 05/31/2017 ROSALINE FLOR DO Ot Z98.890 OTHER SPECIFIED POSTPROCEDURAL STATES 05/31/2017 ROSALINE FLOR DO Ot I65.01 OCCLUSION AND STENOSIS OF RIGHT VERTEBRA 05/31/2017 ROSALINE FLOR DO Ot I70.8 ATHEROSCLEROSIS OF OTHER ARTERIES 05/31/2017 MARYSE VIVAS Ot B00.9 HERPESVIRAL INFECTION, UNSPECIFIED 05/31/2017 MARYSE VIVAS Ot E55.9 VITAMIN D DEFICIENCY, UNSPECIFIED 05/31/2017 MARYSE VIVAS Ot F17.210 NICOTINE DEPENDENCE, CIGARETTES, UNCOMPL 05/31/2017 MARYSE VIVAS Ot G62.9 POLYNEUROPATHY, UNSPECIFIED 05/31/2017 MARYSE VIVAS Ot Z08 ENCNTR FOR FOLLOW-UP EXAM AFTER TRTMT FO 05/31/2017 MARYSE VIVAS Ot 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 [facility] (CURRENT) DRUG THERAPY 05/31/2017 MARYSE VIVAS Ot Z85.820 PERSONAL HISTORY OF MALIGNANT MELANOMA O 05/31/2017 ARLENE LAM, SADAF Mcdaniel Ot E04.2 NONTOXIC MULTINODULAR GOITER Procedures Code Description Performed By Performed On 57.32 CYSTOSCOPY NEC 02/23/2014 70.21 VAGINOSCOPY 02/23/2014 86LD10Y INSERTION OF INFUSION DEV INTO SUP VENA 04/17/2016 [id number] INSERTION OF INFUSION DEV INTO SUP VENA 09/18/2016 Results Test Result Range Urinalysis - 03/02/16 16:20 Icotest N/A Negative Urine Volume Urine Volume Sufficient (10mL) Urine Yeast No Yeast present Urine-Appearance Cloudy Clear Urine-Bacteria 1+ Urine-Bilirubin Negative Negative Urine-Blood 3+ Negative Urine-Color Yellow Colorless-Lt. Yellow Urine-Epithelial Cells 0-5/HPF Urine-Glucose Negative Negative Urine-Ketones Trace Negative Urine-Leukocytes 2+ Negative Urine-Nitrite Positive Negative Urine-Other Culture to follow Urine-pH 6.0 5-8.5 Urine-Protein 2+ Negative Urine-RBC 20-40/HPF Urine-Specific [place] >=1.030 1.000-1.030 Urine-WBC TNTC Urobilinogen 1.0 E.U./dL 0.2-1.0 Bacterial blood culture - 04/13/16 23:35 Bacterial blood culture NG [facility] Complete blood count (CBC) with automated white blood cell (WBC) differential - 04/13/16 23:59 Blood leukocytes automated count (number/volume) 7.6 10*3/uL 4.3-11.0 Blood erythrocytes automated count (number/volume) 4.57 10*6/uL 4.35-5.85 Venous blood hemoglobin measurement (mass/volume) 14.4 g/dL 11.5-16.0 Blood hematocrit (volume fraction) 41 % 35-52 Automated erythrocyte mean corpuscular volume 90 [foz_us] 80-99 Automated erythrocyte mean corpuscular hemoglobin (mass per erythrocyte) 32 pg 25-34 Automated erythrocyte mean corpuscular hemoglobin concentration measurement ( mass/volume) 35 g/dL 32-36 Automated erythrocyte distribution width ratio 12.4 % 10.0-14.5 Automated blood platelet count (count/volume) 334 10*3/uL 130-400 Automated blood platelet mean volume measurement 8.8 [foz_us] 7.4-10.4 Automated blood neutrophils/100 leukocytes 62 % 42-75 Automated blood lymphocytes/100 leukocytes 28 % 12-44 Blood monocytes/100 leukocytes 8 % 0-12 Automated blood eosinophils/100 leukocytes 2 % 0-10 Automated blood basophils/100 leukocytes 0 % 0-10 Blood neutrophils automated count (number/volume) 4.7 10*3 1.8-7.8 Blood lymphocytes automated count (number/volume) 2.2 10*3 1.0-4.0 Blood monocytes automated count (number/volume) 0.6 10*3 0.0-1.0 Automated eosinophil count 0.2 10*3/uL 0.0-0.3 Automated blood basophil count (count/volume) 0.0 10*3/uL 0.0-0.1 Blood lactic acid measurement (moles/volume) - 04/14/16 00:00 Blood lactic acid measurement (moles/volume) 1.7 mmol/L 0.5-2.0 Comprehensive metabolic panel - 04/14/16 00:00 Serum or plasma sodium measurement (moles/volume) 136 mmol/L 135-145 Serum or plasma potassium measurement (moles/volume) 4.0 mmol/L 3.6-5.0 Serum or plasma chloride measurement (moles/volume) 101 mmol/L 98-107 Carbon dioxide 21 mmol/L 21-32 Serum or plasma anion gap determination (moles/volume) 14 mmol/L 5-14 Serum or plasma urea nitrogen measurement (mass/volume) 13 mg/dL 7-18 Serum or plasma creatinine measurement (mass/volume) 0.84 mg/dL 0.60-1.30 Serum or plasma urea nitrogen/creatinine mass ratio 15 NRG Serum or plasma creatinine measurement with calculation of estimated glomerular filtration rate > NRG Serum or plasma glucose measurement (mass/volume) 98 mg/dL 70-105 Serum or plasma calcium measurement (mass/volume) 9.4 mg/dL 8.5-10.1 Serum or plasma total bilirubin measurement (mass/volume) 0.6 mg/dL 0.1-1.0 Serum or plasma alkaline phosphatase measurement (enzymatic activity/volume) 75 U/L 40-136 Serum or plasma aspartate aminotransferase measurement (enzymatic activity/ volume) 25 U/L 5-34 Serum or plasma alanine aminotransferase measurement (enzymatic activity/volume ) 22 U/L 0-55 Serum or plasma protein measurement (mass/volume) 7.6 g/dL 6.4-8.2 Serum or plasma albumin measurement (mass/volume) 4.4 g/dL 3.2-4.5 Serum or plasma C reactive protein measurement (mass/volume) - 04/14/16 00:00 Serum or plasma C reactive protein measurement (mass/volume) 0.36 mg /dL 0.00-0.50 Bacterial blood culture - 04/14/16 00:06 Bacterial blood culture NG NRG Complete blood count (CBC) with automated white blood cell (WBC) differential - 04/16/16 04:36 Blood leukocytes automated count (number/volume) 6.7 10*3/uL 4.3-11.0 Blood erythrocytes automated count (number/volume) 4.01 10*6/uL 4.35-5.85 Venous blood hemoglobin measurement (mass/volume) 12.5 g/dL 11.5-16.0 Blood hematocrit (volume fraction) 37 % 35-52 Automated erythrocyte mean corpuscular volume 92 [foz_us] 80-99 Automated erythrocyte mean corpuscular hemoglobin (mass per erythrocyte) 31 pg 25-34 Automated erythrocyte mean corpuscular hemoglobin concentration measurement ( mass/volume) 34 g/dL 32-36 Automated erythrocyte distribution width ratio 12.1 % 10.0-14.5 Automated blood platelet count (count/volume) 302 10*3/uL 130-400 Automated blood platelet mean volume measurement 8.9 [foz_us] 7.4-10.4 Automated blood neutrophils/100 leukocytes 55 % 42-75 Automated blood lymphocytes/100 leukocytes 35 % 12-44 Blood monocytes/100 leukocytes 7 % 0-12 Automated blood eosinophils/100 leukocytes 2 % 0-10 Automated blood basophils/100 leukocytes 0 % 0-10 Blood neutrophils automated count (number/volume) 3.7 10*3 1.8-7.8 Blood lymphocytes automated count (number/volume) 2.3 10*3 1.0-4.0 Blood monocytes automated count (number/volume) 0.5 10*3 0.0-1.0 Automated eosinophil count 0.2 10*3/uL 0.0-0.3 Automated blood basophil count (count/volume) 0.0 10*3/uL 0.0-0.1 Whole blood basic metabolic panel - 04/16/16 04:36 Serum or plasma sodium measurement (moles/volume) 138 mmol/L 135-145 Serum or plasma potassium measurement (moles/volume) 3.9 mmol/L 3.6-5.0 Serum or plasma chloride measurement (moles/volume) 109 mmol/L 98-107 Carbon dioxide 20 mmol/L 21-32 Serum or plasma anion gap determination (moles/volume) 9 mmol/L 5-14 Serum or plasma urea nitrogen measurement (mass/volume) 10 mg/dL 7-18 Serum or plasma creatinine measurement (mass/volume) 0.73 mg/dL 0.60-1.30 Serum or plasma urea nitrogen/creatinine mass ratio 14 NRG Serum or plasma creatinine measurement with calculation of estimated glomerular filtration rate > NRG Serum or plasma glucose measurement (mass/volume) 83 mg/dL 70-105 Serum or plasma calcium measurement (mass/volume) 8.3 mg/dL 8.5-10.1 Complete blood count (CBC) with automated white blood cell (WBC) differential - 04/25/16 06:00 Blood leukocytes automated count (number/volume) 7.7 10*3/uL 4.3-11.0 Blood erythrocytes automated count (number/volume) 4.27 10*6/uL 4.35-5.85 Venous blood hemoglobin measurement (mass/volume) 13.5 g/dL 11.5-16.0 Blood hematocrit (volume fraction) 39 % 35-52 Automated erythrocyte mean corpuscular volume 92 [foz_us] 80-99 Automated erythrocyte mean corpuscular hemoglobin (mass per erythrocyte) 32 pg 25-34 Automated erythrocyte mean corpuscular hemoglobin concentration measurement ( mass/volume) 34 g/dL 32-36 Automated erythrocyte distribution width ratio 12.7 % 10.0-14.5 Automated blood platelet count (count/volume) 227 10*3/uL 130-400 Automated blood platelet mean volume measurement 8.5 [foz_us] 7.4-10.4 Automated blood neutrophils/100 leukocytes 65 % 42-75 Automated blood lymphocytes/100 leukocytes 24 % 12-44 Blood monocytes/100 leukocytes 8 % 0-12 Automated blood eosinophils/100 leukocytes 3 % 0-10 Automated blood basophils/100 leukocytes 0 % 0-10 Blood neutrophils automated count (number/volume) 5.0 10*3 1.8-7.8 Blood lymphocytes automated count (number/volume) 1.8 10*3 1.0-4.0 Blood monocytes automated count (number/volume) 0.6 10*3 0.0-1.0 Automated eosinophil count 0.3 10*3/uL 0.0-0.3 Automated blood basophil count (count/volume) 0.0 10*3/uL 0.0-0.1 Whole blood basic metabolic panel - 04/25/16 06:00 Serum or plasma sodium measurement (moles/volume) 137 mmol/L 135-145 Serum or plasma potassium measurement (moles/volume) 4.2 mmol/L 3.6-5.0 Serum or plasma chloride measurement (moles/volume) 102 mmol/L 98-107 Carbon dioxide 22 mmol/L 21-32 Serum or plasma anion gap determination (moles/volume) 13 mmol/L 5-14 Serum or plasma urea nitrogen measurement (mass/volume) 11 mg/dL 7-18 Serum or plasma creatinine measurement (mass/volume) 0.74 mg/dL 0.60-1.30 Serum or plasma urea nitrogen/creatinine mass ratio 15 NRG Serum or plasma creatinine measurement with calculation of estimated glomerular filtration rate > NRG Serum or plasma glucose measurement (mass/volume) 85 mg/dL 70-105 Serum or plasma calcium measurement (mass/volume) 9.3 mg/dL 8.5-10.1 Capillary blood glucose measurement by glucometer (mass/volume) - 09/14/16 22: 40 Capillary blood glucose measurement by glucometer (mass/volume) 118 mg/dL 70-110 Complete blood count (CBC) with automated white blood cell (WBC) differential - 09/15/16 04:18 Blood leukocytes automated count (number/volume) 6.4 10*3/uL 4.3-11.0 Blood erythrocytes automated count (number/volume) 4.14 10*6/uL 4.35-5.85 Venous blood hemoglobin measurement (mass/volume) 12.5 g/dL 11.5-16.0 Blood hematocrit (volume fraction) 38 % 35-52 Automated erythrocyte mean corpuscular volume 91 [foz_us] 80-99 Automated erythrocyte mean corpuscular hemoglobin (mass per erythrocyte) 30 pg 25-34 Automated erythrocyte mean corpuscular hemoglobin concentration measurement ( mass/volume) 33 g/dL 32-36 Automated erythrocyte distribution width ratio 12.3 % 10.0-14.5 Automated blood platelet count (count/volume) 264 10*3/uL 130-400 Automated blood platelet mean volume measurement 9.0 [foz_us] 7.4-10.4 Automated blood neutrophils/100 leukocytes 60 % 42-75 Automated blood lymphocytes/100 leukocytes 29 % 12-44 Blood monocytes/100 leukocytes 8 % 0-12 Automated blood eosinophils/100 leukocytes 3 % 0-10 Automated blood basophils/100 leukocytes 0 % 0-10 Blood neutrophils automated count (number/volume) 3.8 10*3 1.8-7.8 Blood lymphocytes automated count (number/volume) 1.9 10*3 1.0-4.0 Blood monocytes automated count (number/volume) 0.5 10*3 0.0-1.0 Automated eosinophil count 0.2 10*3/uL 0.0-0.3 Automated blood basophil count (count/volume) 0.0 10*3/uL 0.0-0.1 Whole blood basic metabolic panel - 09/15/16 04:18 Serum or plasma sodium measurement (moles/volume) 138 mmol/L 135-145 Serum or plasma potassium measurement (moles/volume) 3.9 mmol/L 3.6-5.0 Serum or plasma chloride measurement (moles/volume) 106 mmol/L 98-107 Carbon dioxide 22 mmol/L 21-32 Serum or plasma anion gap determination (moles/volume) 10 mmol/L 5-14 Serum or plasma urea nitrogen measurement (mass/volume) 15 mg/dL 7-18 Serum or plasma creatinine measurement (mass/volume) 0.92 mg/dL 0.60-1.30 Serum or plasma urea nitrogen/creatinine mass ratio 16 NRG Serum or plasma creatinine measurement with calculation of estimated glomerular filtration rate > NRG Serum or plasma glucose measurement (mass/volume) 104 mg/dL 70-105 Serum or plasma calcium measurement (mass/volume) 9.2 mg/dL 8.5-10.1 Complete blood count (CBC) with automated white blood cell (WBC) differential - 09/20/16 08:42 Blood leukocytes automated count (number/volume) 5.7 10*3/uL 4.3-11.0 Blood erythrocytes automated count (number/volume) 4.28 10*6/uL 4.35-5.85 Venous blood hemoglobin measurement (mass/volume) 13.0 g/dL 11.5-16.0 Blood hematocrit (volume fraction) 38 % 35-52 Automated erythrocyte mean corpuscular volume 90 [foz_us] 80-99 Automated erythrocyte mean corpuscular hemoglobin (mass per erythrocyte) 30 pg 25-34 Automated erythrocyte mean corpuscular hemoglobin concentration measurement ( mass/volume) 34 g/dL 32-36 Automated erythrocyte distribution width ratio 12.3 % 10.0-14.5 Automated blood platelet count (count/volume) 226 10*3/uL 130-400 Automated blood platelet mean volume measurement 8.6 [foz_us] 7.4-10.4 Automated blood neutrophils/100 leukocytes 56 % 42-75 Automated blood lymphocytes/100 leukocytes 32 % 12-44 Blood monocytes/100 leukocytes 8 % 0-12 Automated blood eosinophils/100 leukocytes 4 % 0-10 Automated blood basophils/100 leukocytes 1 % 0-10 Blood neutrophils automated count (number/volume) 3.2 10*3 1.8-7.8 Blood lymphocytes automated count (number/volume) 1.8 10*3 1.0-4.0 Blood monocytes automated count (number/volume) 0.5 10*3 0.0-1.0 Automated eosinophil count 0.2 10*3/uL 0.0-0.3 Automated blood basophil count (count/volume) 0.0 10*3/uL 0.0-0.1 Comprehensive metabolic panel - 09/20/16 08:42 Serum or plasma sodium measurement (moles/volume) 137 mmol/L 135-145 Serum or plasma potassium measurement (moles/volume) 4.0 mmol/L 3.6-5.0 Serum or plasma chloride measurement (moles/volume) 104 mmol/L 98-107 Carbon dioxide 24 mmol/L 21-32 Serum or plasma anion gap determination (moles/volume) 9 mmol/L 5-14 Serum or plasma urea nitrogen measurement (mass/volume) 11 mg/dL 7-18 Serum or plasma creatinine measurement (mass/volume) 0.82 mg/dL 0.60-1.30 Serum or plasma urea nitrogen/creatinine mass ratio 13 NRG Serum or plasma creatinine measurement with calculation of estimated glomerular filtration rate > NRG Serum or plasma glucose measurement (mass/volume) 96 mg/dL 70-105 Serum or plasma calcium measurement (mass/volume) 9.2 mg/dL 8.5-10.1 Serum or plasma total bilirubin measurement (mass/volume) 0.6 mg/dL 0.1-1.0 Serum or plasma alkaline phosphatase measurement (enzymatic activity/volume) 65 U/L 40-136 Serum or plasma aspartate aminotransferase measurement (enzymatic activity/ volume) 21 U/L 5-34 Serum or plasma alanine aminotransferase measurement (enzymatic activity/volume ) 31 U/L 0-55 Serum or plasma protein measurement (mass/volume) 6.5 g/dL 6.4-8.2 Serum or plasma albumin measurement (mass/volume) 3.7 g/dL 3.2-4.5 Complete blood count (CBC) with automated white blood cell (WBC) differential - 09/27/16 05:15 Blood leukocytes automated count (number/volume) 4.5 10*3/uL 4.3-11.0 Blood erythrocytes automated count (number/volume) 3.78 10*6/uL 4.35-5.85 Venous blood hemoglobin measurement (mass/volume) 11.6 g/dL 11.5-16.0 Blood hematocrit (volume fraction) 35 % 35-52 Automated erythrocyte mean corpuscular volume 92 [foz_us] 80-99 Automated erythrocyte mean corpuscular hemoglobin (mass per erythrocyte) 31 pg 25-34 Automated erythrocyte mean corpuscular hemoglobin concentration measurement ( mass/volume) 34 g/dL 32-36 Automated erythrocyte distribution width ratio 12.9 % 10.0-14.5 Automated blood platelet count (count/volume) 256 10*3/uL 130-400 Automated blood platelet mean volume measurement 8.7 [foz_us] 7.4-10.4 Automated blood neutrophils/100 leukocytes 54 % 42-75 Automated blood lymphocytes/100 leukocytes 32 % 12-44 Blood monocytes/100 leukocytes 9 % 0-12 Automated blood eosinophils/100 leukocytes 4 % 0-10 Automated blood basophils/100 leukocytes 0 % 0-10 Blood neutrophils automated count (number/volume) 2.5 10*3 1.8-7.8 Blood lymphocytes automated count (number/volume) 1.5 10*3 1.0-4.0 Blood monocytes automated count (number/volume) 0.4 10*3 0.0-1.0 Automated eosinophil count 0.2 10*3/uL 0.0-0.3 Automated blood basophil count (count/volume) 0.0 10*3/uL 0.0-0.1 Bacterial blood culture - 10/02/16 00:40 FREE TEXT EXTERNAL SENSITIVITY REPORTED 10/03 16:00 NRG QUANTITY OF GROWTH . NRG Bacterial blood culture SEE [facility] Bacterial susceptibility panel - 10/02/16 00:40 Gentamicin susceptibility test by minimum inhibitory concentration < = NRG Trimethoprim/sulfamethoxazole susceptibility test by minimum inhibitoryconcentration <= NRG Ampicillin susceptibility test by minimum inhibitory concentration > = NRG Tobramycin susceptibility test by minimum inhibitory concentration < = NRG Cefazolin susceptibility test by minimum inhibitory concentration < = NRG Ceftriaxone susceptibility test by minimum inhibitory concentration <= NRG Ampicillin/sulbactam susceptibility test by minimum inhibitory concentration 4 NRG Piperacillin/tazobactam susceptibility test by minimum inhibitory concentration <= NRG Ciprofloxacin susceptibility test by minimum inhibitory concentration <= NRG Meropenem susceptibility test by minimum inhibitory concentration < = NRG Aztreonam susceptibility test by minimum inhibitory concentration < = NRG Extended spectrum beta lactamase (ESBL) producing bacteria susceptibility test by minimum inhibitory concentration - NR Cefepime susceptibility test by minimum inhibitory concentration <= NRG Bacterial blood culture - 10/02/16 01:05 Bacterial blood culture NG NRG Complete blood count (CBC) with automated white blood cell (WBC) differential - 10/03/16 06:49 Blood leukocytes automated count (number/volume) 1.9 10*3/uL 4.3-11.0 Blood erythrocytes automated count (number/volume) 3.85 10*6/uL 4.35-5.85 Venous blood hemoglobin measurement (mass/volume) 11.7 g/dL 11.5-16.0 Blood hematocrit (volume fraction) 35 % 35-52 Automated erythrocyte mean corpuscular volume 91 [foz_us] 80-99 Automated erythrocyte mean corpuscular hemoglobin (mass per erythrocyte) 30 pg 25-34 Automated erythrocyte mean corpuscular hemoglobin concentration measurement ( mass/volume) 34 g/dL 32-36 Automated erythrocyte distribution width ratio 13.7 % 10.0-14.5 Automated blood platelet count (count/volume) 139 10*3/uL 130-400 Automated blood platelet mean volume measurement 8.6 [foz_us] 7.4-10.4 Automated blood neutrophils/100 leukocytes 58 % 42-75 Automated blood lymphocytes/100 leukocytes 27 % 12-44 Blood monocytes/100 leukocytes 14 % 0-12 Automated blood eosinophils/100 leukocytes 1 % 0-10 Automated blood basophils/100 leukocytes 1 % 0-10 Blood neutrophils automated count (number/volume) 1.1 10*3 1.8-7.8 Blood lymphocytes automated count (number/volume) 0.5 10*3 1.0-4.0 Blood monocytes automated count (number/volume) 0.3 10*3 0.0-1.0 Automated eosinophil count 0.0 10*3/uL 0.0-0.3 Automated blood basophil count (count/volume) 0.0 10*3/uL 0.0-0.1 Whole blood basic metabolic panel - 10/03/16 06:49 Serum or plasma sodium measurement (moles/volume) 136 mmol/L 135-145 Serum or plasma potassium measurement (moles/volume) 3.6 mmol/L 3.6-5.0 Serum or plasma chloride measurement (moles/volume) 105 mmol/L 98-107 Carbon dioxide 22 mmol/L 21-32 Serum or plasma anion gap determination (moles/volume) 9 mmol/L 5-14 Serum or plasma urea nitrogen measurement (mass/volume) 9 mg/dL 7-18 Serum or plasma creatinine measurement (mass/volume) 0.71 mg/dL 0.60-1.30 Serum or plasma urea nitrogen/creatinine mass ratio 13 NRG Serum or plasma creatinine measurement with calculation of estimated glomerular filtration rate > NRG Serum or plasma glucose measurement (mass/volume) 96 mg/dL 70-105 Serum or plasma calcium measurement (mass/volume) 8.4 mg/dL 8.5-10.1 Whole blood basic metabolic panel - 10/04/16 06:46 Serum or plasma sodium measurement (moles/volume) 140 mmol/L 135-145 Serum or plasma potassium measurement (moles/volume) 3.5 mmol/L 3.6-5.0 Serum or plasma chloride measurement (moles/volume) 108 mmol/L 98-107 Carbon dioxide 23 mmol/L 21-32 Serum or plasma anion gap determination (moles/volume) 9 mmol/L 5-14 Serum or plasma urea nitrogen measurement (mass/volume) 10 mg/dL 7-18 Serum or plasma creatinine measurement (mass/volume) 0.72 mg/dL 0.60-1.30 Serum or plasma urea nitrogen/creatinine mass ratio 14 NRG Serum or plasma creatinine measurement with calculation of estimated glomerular filtration rate > NRG Serum or plasma glucose measurement (mass/volume) 98 mg/dL 70-105 Serum or plasma calcium measurement (mass/volume) 8.8 mg/dL 8.5-10.1 Complete blood count (CBC) with automated white blood cell (WBC) differential - 10/04/16 06:46 Blood leukocytes automated count (number/volume) 2.4 10*3/uL 4.3-11.0 Blood erythrocytes automated count (number/volume) 3.81 10*6/uL 4.35-5.85 Venous blood hemoglobin measurement (mass/volume) 11.6 g/dL 11.5-16.0 Blood hematocrit (volume fraction) 35 % 35-52 Automated erythrocyte mean corpuscular volume 91 [foz_us] 80-99 Automated erythrocyte mean corpuscular hemoglobin (mass per erythrocyte) 30 pg 25-34 Automated erythrocyte mean corpuscular hemoglobin concentration measurement ( mass/volume) 34 g/dL 32-36 Automated erythrocyte distribution width ratio 13.8 % 10.0-14.5 Automated blood platelet count (count/volume) 167 10*3/uL 130-400 Automated blood platelet mean volume measurement 9.1 [foz_us] 7.4-10.4 Automated blood neutrophils/100 leukocytes 33 % 42-75 Automated blood lymphocytes/100 leukocytes 46 % 12-44 Blood monocytes/100 leukocytes 16 % 0-12 Automated blood eosinophils/100 leukocytes 5 % 0-10 Automated blood basophils/100 leukocytes 1 % 0-10 Blood neutrophils automated count (number/volume) 0.8 10*3 1.8-7.8 Blood lymphocytes automated count (number/volume) 1.1 10*3 1.0-4.0 Blood monocytes automated count (number/volume) 0.4 10*3 0.0-1.0 Automated eosinophil count 0.1 10*3/uL 0.0-0.3 Automated blood basophil count (count/volume) 0.0 10*3/uL 0.0-0.1 Complete blood count (CBC) with automated white blood cell (WBC) differential - 10/05/16 05:50 Blood leukocytes automated count (number/volume) 2.8 10*3/uL 4.3-11.0 Blood erythrocytes automated count (number/volume) 3.82 10*6/uL 4.35-5.85 Venous blood hemoglobin measurement (mass/volume) 11.6 g/dL 11.5-16.0 Blood hematocrit (volume fraction) 35 % 35-52 Automated erythrocyte mean corpuscular volume 90 [foz_us] 80-99 Automated erythrocyte mean corpuscular hemoglobin (mass per erythrocyte) 30 pg 25-34 Automated erythrocyte mean corpuscular hemoglobin concentration measurement ( mass/volume) 34 g/dL 32-36 Automated erythrocyte distribution width ratio 13.9 % 10.0-14.5 Automated blood platelet count (count/volume) 213 10*3/uL 130-400 Automated blood platelet mean volume measurement 8.8 [foz_us] 7.4-10.4 Automated blood neutrophils/100 leukocytes 37 % 42-75 Automated blood lymphocytes/100 leukocytes 50 % 12-44 Blood monocytes/100 leukocytes 9 % 0-12 Automated blood eosinophils/100 leukocytes 4 % 0-10 Automated blood basophils/100 leukocytes 1 % 0-10 Blood neutrophils automated count (number/volume) 1.0 10*3 1.8-7.8 Blood lymphocytes automated count (number/volume) 1.4 10*3 1.0-4.0 Blood monocytes automated count (number/volume) 0.2 10*3 0.0-1.0 Automated eosinophil count 0.1 10*3/uL 0.0-0.3 Automated blood basophil count (count/volume) 0.0 10*3/uL 0.0-0.1 Complete blood count (CBC) with automated white blood cell (WBC) differential - 10/06/16 05:24 Blood leukocytes automated count (number/volume) 4.1 10*3/uL 4.3-11.0 Blood erythrocytes automated count (number/volume) 4.02 10*6/uL 4.35-5.85 Venous blood hemoglobin measurement (mass/volume) 12.3 g/dL 11.5-16.0 Blood hematocrit (volume fraction) 36 % 35-52 Automated erythrocyte mean corpuscular volume 90 [foz_us] 80-99 Automated erythrocyte mean corpuscular hemoglobin (mass per erythrocyte) 31 pg 25-34 Automated erythrocyte mean corpuscular hemoglobin concentration measurement ( mass/volume) 34 g/dL 32-36 Automated erythrocyte distribution width ratio 13.8 % 10.0-14.5 Automated blood platelet count (count/volume) 240 10*3/uL 130-400 Automated blood platelet mean volume measurement 8.9 [foz_us] 7.4-10.4 Automated blood neutrophils/100 leukocytes 42 % 42-75 Automated blood lymphocytes/100 leukocytes 45 % 12-44 Blood monocytes/100 leukocytes 9 % 0-12 Automated blood eosinophils/100 leukocytes 3 % 0-10 Automated blood basophils/100 leukocytes 1 % 0-10 Blood neutrophils automated count (number/volume) 1.7 10*3 1.8-7.8 Blood lymphocytes automated count (number/volume) 1.8 10*3 1.0-4.0 Blood monocytes automated count (number/volume) 0.4 10*3 0.0-1.0 Automated eosinophil count 0.1 10*3/uL 0.0-0.3 Automated blood basophil count (count/volume) 0.0 10*3/uL 0.0-0.1 THYROID STIMULATING HORMONE - 01/30/17 11:52 THYROID STIMULATING HORMONE 1.70 u[iU]/mL 0.35-4.94 Serum or plasma thyroxine (T4) free measurement (mass/volume) - 01/30/17 11:52 Serum or plasma thyroxine (T4) free measurement (mass/volume) 0.95 ng/dL 0.70-1.48 [id number] - 03/29/17 08:02 Serum or plasma urea nitrogen measurement (mass/volume) 12 mg/dL 7-18 Serum or plasma creatinine measurement (mass/volume) 0.86 mg/dL 0.60-1.30 Serum or plasma urea nitrogen/creatinine mass ratio 14 NRG Serum or plasma creatinine measurement with calculation of estimated glomerular filtration rate > NRG Encounters ACCT No. Visit Date/Time Discharge Status Pt. Type Provider Facility Loc./Unit Complaint [id number] 04/23/2017 11:35:00 04/23/2017 23:59:59 CLS Outpatient SADAF JACOBS MD [facility] RAD THYROID NODULES [id number] 04/05/2017 00:33:00 04/05/2017 23:59:59 CLS Preadmit MARYSE VIVAS [facility] ONC [id number] 04/04/2017 10:59:00 04/04/2017 23:59:59 CLS Outpatient ROSALINE FLOR DO S [facility] RAD RIGHT SUBCLAVIAN/ VERTEBRAL ARTERY STENOSIS [id number] 01/04/2017 10:53:00 04/04/2017 00:01:00 DIS Outpatient MARYSE VIVAS [facility] ONC [id number] 03/29/2017 07:47:00 03/29/2017 23:59:59 CLS Outpatient ROSALINE FLOR DO S [facility] RAD H93.11 [id number] 01/30/2017 11:35:00 01/30/2017 23:59:59 CLS Outpatient SADAF JACOBS MD [facility] RAD LT THYROID NODULE [id number] 01/22/2017 14:12:00 01/22/2017 23:59:59 CLS Outpatient SADAF JACOBS MD [facility] RAD THYROID NODULE [id number] 12/04/2016 08:40:00 12/04/2016 23:59:59 CLS Outpatient ROSALINE FLOR DO S [facility] RAD CEPHALGIA,HX OF MALIGNANT MELANOMA [id number] 09/13/2016 14:54:00 10/06/2016 13:04:00 DIS Inpatient MARYSE VIVAS [facility] 4TH HERPES ZOSTER OUTBREAK TO FACE [id number] 04/12/2016 10:00:00 07/11/2016 00:01:00 DIS Outpatient MARYSE VIVAS [facility] ONC [id number] 04/20/2016 16:15:00 04/25/2016 17:30:00 DIS Inpatient MARYSE VIVAS [facility] 4TH SWB HERPES ZOSTER [id number] 04/14/2016 01:15:00 04/20/2016 16:15:00 DIS Inpatient MARYSE VIVAS [facility] 4TH FACIAL SHINGLES W INTRACTABLE PAIN [id number] 10/11/2015 09:53:00 01/09/2016 00:01:00 DIS Outpatient MARYSE VIVAS [facility] ONC [id number] 02/23/2015 11:41:00 05/24/2015 00:01:00 DIS Outpatient MARYSE VIVAS [facility] ONC [id number] 03/09/2015 12:54:00 03/09/2015 23:59:59 CLS Outpatient MARYSE VIVAS [facility] FS [id number] 10/15/2014 14:17:00 11/18/2014 00:01:00 DIS Outpatient MARYSE VIVAS [facility] ONC [id number] 10/27/2014 11:02:00 10/27/2014 23:59:59 CLS Outpatient MARYSE VIVAS [facility] FS [id number] 08/31/2014 11:13:00 08/31/2014 23:59:59 CLS Outpatient MARYSE VIVAS [facility] RAD HX OF PUL NODULE [id number] 07/21/2014 14:03:00 07/21/2014 23:59:59 CLS Outpatient MARYSE VIVAS [facility] FS [id number] 05/19/2014 10:40:00 05/19/2014 23:59:59 CLS Outpatient MARYSE VIVAS [facility] RAD HX OF MALIGNANT MELANOMA [id number] 04/07/2014 10:42:00 04/07/2014 23:59:59 CLS Outpatient MARYSE VIVAS [facility] RAD ABD PAIN, CRAMPING [id number] 03/10/2014 15:08:00 03/10/2014 23:59:59 CLS Outpatient MARYSE VIVAS [facility] FS [id number] 02/14/2014 13:58:00 02/27/2014 16:35:00 DIS Inpatient MARYSE VIVAS [facility] 4TH TIDWELL,SWELLING OF FACE [id number] 02/06/2014 08:52:00 02/07/2014 08:00:00 DIS Outpatient SADAF JACOBS MD [facility] SDC CHRONIC SINUSITIS; HYPERTHROPY TURBINATES [id number] 02/03/2014 20:30:00 02/05/2014 19:00:00 DIS Inpatient MARYSE VIVAS [facility] 4TH R FACIAL LYMPHEDEMA, INTRACTABLE PAIN [id number] 02/04/2014 08:45:00 02/04/2014 23:59:59 CLS Preadmit LINO LAM, LAURO Barragan [facility] RAD REOCCURING UTI [id number] 02/02/2014 08:20:00 02/02/2014 23:59:59 CLS Outpatient SADAF JACOBS MD [facility] PREOP CHRONIC SINUSITIS; HYPERTROPHY TURBINATES [id number] 02/02/2014 20:28:00 02/02/2014 22:18:00 DIS Emergency HIRAL PRESTON [facility] ER ALLERGIC REACTION [id number] 12/30/2013 08:22:00 12/30/2013 23:59:59 CLS Outpatient MAISHA PIZANO MD [facility] RAD CHRONIC SINUSITIS [id number] 07/02/2013 03:45:00 09/29/2013 00:01:00 DIS Outpatient MARYSE VIVAS [facility] ONC [id number] 09/03/2013 09:06:00 09/03/2013 23:59:59 CLS Outpatient TYLOR MENDOZA MD [facility] RAD NECK PAIN [id number] 07/08/2013 09:20:00 07/08/2013 23:59:59 CLS Outpatient MARYSE VIVAS [facility] RAD MELANOMA [id number] 07/01/2013 14:45:00 07/08/2013 14:07:00 DIS Outpatient TYLOR MENDOZA MD [facility] REHAB CERVICALGIA [id number] 06/02/2013 12:51:00 06/02/2013 23:59:59 CLS Outpatient MARYSE VIVAS [facility] ONC [id number] 04/29/2013 13:44:00 04/29/2013 17:00:00 DIS Outpatient YOMAIRA MCKENZIE DO [facility] SDC DYSPHAGIA [id number] 04/23/2013 10:51:00 04/23/2013 23:59:59 CLS Outpatient YOMAIRA MCKENZIE DO [facility] PREOP DYSPHAGIA [id number] 01/27/2013 12:19:00 01/27/2013 23:59:59 CLS Outpatient TYLOR MENDOZA MD [facility] CARD THORACALGIA [id number] 12/17/2012 07:49:00 12/17/2012 23:59:59 CLS Outpatient ANA LAURA EDWARDP [facility] RAD MALIGNANT MELANOMA [id number] 12/13/2012 08:01:00 12/13/2012 23:59:59 CLS Outpatient TYLOR MENDOZA MD [facility] CARD DDD LUMBAR [id number] 12/09/2012 13:58:00 12/09/2012 23:59:59 CLS Outpatient 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 [id number] 10/02/2012 12:29:00 10/02/2012 23:59:59 CLS Outpatient ALYSIA ARIAS APRN [facility] RAD LUMBAR RADICULOPATHY [id number] 05/08/2014 10:16:00 Document Registration [id number] 04/07/2014 10:42:00 Document Registration [id number] 04/07/2014 10:42:00 Document Registration [id number] 04/07/2014 10:42:00 Document Registration [id number] 04/07/2014 10:42:00 Document Registration [id number] 02/03/2014 14:04:00 Document Registration [id number] 01/21/2014 08:48:00 Document Registration [id number] 09/30/2013 00:00:00 Document Registration [id number] 05/23/2012 14:20:00 Document Registration [id number] 03/22/2012 15:21:00 Document Registration [id number] 01/22/2012 10:34:00 Document Registration [id number] 10/12/2011 10:22:00 Document Registration [id number] 07/11/2011 12:52:00 Document Registration [id number] 06/29/2011 13:51:00 Document Registration [id number] 03/02/2011 13:18:00 Document Registration [id number] 02/03/2011 10:49:00 Document Registration [id number] 02/02/2011 13:32:00 Document Registration [id number] 11/21/2010 09:32:00 Document Registration [id number] 11/09/2010 14:36:00 Document Registration [id number] 08/01/2010 12:59:00 Document Registration [id number] 05/02/2010 14:07:00 Document Registration [id number] 04/29/2010 14:06:00 Document Registration [id number] 04/02/2010 07:51:00 Document Registration [id number] 02/26/2010 19:10:00 Document Registration [id number] 02/25/2010 10:52:00 Document Registration [id number] 02/24/2010 07:20:00 Document Registration [id number] 02/21/2010 15:26:00 Document Registration [id number] 02/01/2010 19:54:00 Document Registration [id number] 01/21/2010 17:18:00 Document Registration [id number] 01/21/2010 14:45:00 Document Registration [id number] 12/13/2009 10:12:00 Document Registration [id number] 09/21/2009 13:30:00 Document Registration [id number] 09/15/2009 13:56:00 Document Registration [id number] 06/25/2009 09:44:00 Document Registration [id number] 03/11/2009 14:06:00 Document Registration [id number] 12/03/2008 10:30:00 Document Registration [id number] 06/04/2008 00:00:00 Document Registration 10/201611/15/2016 14:22:19 11/15/2016 23:59:59 CLS Outpatient Rosaline Flor S. [id number] 11/19/2015 10:17:34 11/19/2015 23:59:59 CLS Outpatient [id number] 03/02/2016 15:42:00 03/02/2016 23:59:00 [facility] Outpatient Rosaline Flor
[2017-07-03] MEDS ORDERED: ESZO2TAB30 PO (17:16)
[2017-07-03] MEDS ORDERED: DULO60CA58 PO (17:16)
[2017-07-03] MEDS ORDERED: CARB-88 PO (17:16)
[2017-07-03] MEDS ORDERED: VALA1000 PO (17:16)
[2017-07-03] MEDS ORDERED: KETOROLAC 30 MG/ML VIAL IVP STA (17:39)
--- NOTE | 2017-07-03 17:49 | ED Integumentary General ---
General Chief Complaint: Skin/Wound Problems Stated Complaint: FACIAL INFECTION Nursing Triage Note: TO ROOM WAS TOLD B DR VIVAS TO COME TO ER FOR ADMIT. HAS HERPES AROUND AND IN MOUTH NOT RESPONDING TO PO MEDS. Source: patient Exam Limitations: no limitations History of Present Illness Date Seen by Provider: July 03, 2017 Time Seen by Provider: 17:25 Initial Comments PT ARRIVES VIA POV FROM HOME STATES SHE CALLED DR. 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 CALLED DR. CASE YESTERDAY AND RX FOR VALTREX 1 GRAM TID WAS CALLED IN SYMPTOMS CONTINUED TO WORSEN TODAY, AND CALLED DR. VIVAS, WHO TOLD HER TO COME TO ER AND BE ADMITTED. HAS NOT TAKEN ANYTHING FOR PAIN NO FEVER OR RECENT ILLNESS NO PROBLEMS SWALLOWING NO MOTOR OR SENSORY DEFICITS NO EYE PAIN OR CHANGES IN VISION PT WAS DX WITH STAGE 4 MELANOMA IN 2001, AND HAD RIGHT RADICAL NECK SURGERY, WITH 1 YEAR OF INTERFERON PLUS RADIATION TREATMENTS --TREATED AT [facility] AND DR. VIVAS PT HAD RECURRENCE IN 2003 TO ABDOMEN AND HAD IT SURGICALLY REMOVED. NO FURTHER TREATMENTS HAVE BEEN NEEDED, AND PT HAS BEEN CLEAR SINCE 2003 SINCE SURGERY IN 2001, PT HAS HAD RECURRENT HZV TO RIGHT FACE, FELT TO BE DUE TO NO LYMPH NODES TO THAT SIDE OF HEAD/NECK. PCP: DR. CASE ONCOLOGY: DR. VIVAS Allergies and Home Medications Allergies Coded Allergies: promethazine (Verified Allergy, Unknown, 04/13/16) vancomycin (Verified Allergy, Unknown, RASH, 09/13/16) reacted to iv vancomycin in cancer center on 01/21 Home Medications Acyclovir 200 Mg Capsule, 400 MG PO BID, (Reported) TAKES 2 (200MG) CAPSULES Cholecalciferol (Vitamin D3) 5,000 Unit Capsule, 5,000 UNIT PO DAILY, (Reported) Patient Home Medication List Home Medication List Reviewed: Yes Constitutional: no symptoms reported; No chills, No diaphoresis, No fever EENTM: see HPI, other (NO VISION CHANGES. NO PROBLEMS SWALLOWING); No eye pain , No tearing Respiratory: no symptoms reported Cardiovascular: no symptoms reported Gastrointestinal: no symptoms reported Genitourinary: no symptoms reported Musculoskeletal: no symptoms reported Skin: see HPI Psychiatric/Neurological: See HPI (PAIN/BURNING TO RIGHT SIDE OF FACE IN DISTRIBUTION OF RIGHT TRIGEMINAL NERVE) Endocrine: No Symptoms Reported Hematologic/Lymphatic: No Symptoms Reported Past Dczaxlq-Jeufmb-Htwtyp Hx Patient Social History Alcohol Use: Denies Use Recreational Drug Use: No Smoking Status: Never a Smoker 2nd Hand Smoke Exposure: No Recent Foreign Travel: No Contact w/Someone Who Travel: No Recent Infectious Disease Expo: No Recent Hopitalizations: Yes Immunizations Up To Date Tetanus Booster (TDap): Unknown Seasonal Allergies Seasonal Allergies: No Past Medical History Surgeries: Yes ( X 2; HYST/OVARIES INTACT; RIGHT RADICAL NECK 2001; METASTATIC MELANOMA TUMOR REMOVED FROM ABDOMEN 2003; EGD; BLADDER SURGERY; LAPAROSCOPY FOR ENDOMETRIOSIS; ) Abdominal, Bladder Surgery, Section, Gallbladder, Hysterectomy Respiratory: No Cardiac: No Neurological: Yes Headaches /Migraines Reproductive Disorders: Yes (Surgeries for Ovarian cysts) Female Reproductive Disorders: Endometriosis, Ovarian 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 NO FURTHER TREATMENT) Melanoma Did You Recieve Any Treatments: Yes What Type of Treatment Did You: Chemotherapy, Radiation, Surgical Intervention Psychosocial: Yes Anxiety, Depression Integumentary: Yes (RECURRENT HZV TO RIGHT FACE) Recent Skin Changes Blood Disorders: No Adverse Reaction/Blood Tranf: No Family Medical History Arthritis 19 MOTHER G8 SISTER Cataracts 19 MOTHER Congenital heart disease 19 FATHER (HEART DZ) Diabetes mellitus 19 FATHER Hypertension 19 FATHER Myocardial infarction 19 FATHER Respiratory disorder 19 FATHER (EMPHYSEMA) Seizure disorder G8 BROTHER (CEBERAL PALSY ALOS) No Pertinent Family Hx Physical Exam Vital Signs Vital Signs - First Documented 07/03/17 17:04 Temp 97.6 Pulse 79 Resp 18 B/P (MAP) 130/84 (99) O2 Delivery Room Air Capillary Refill : Less Than 3 Seconds General Appearance: WD/WN, no apparent distress HEENT: PERRL/EOMI, pharynx normal, other (FEW VESICLES TO UPPER LIP AREA, EARLY ERYTHEMATOUS PAPULE ABOVE RIGHT BROW.NO EVIDENCE OF EYE INVOLVEMENT ) Neck: non-tender, other (POST SURGICAL CHANGES TO RIGHT SIDE OF NECK) Cardiovascular: regular rate, rhythm, no murmur Respiratory: normal breath sounds Extremities: normal inspection Neurologic/Psychiatric: can filling and closing machine tender II-XII nml as tested, no motor/sensory deficits, alert, normal mood/affect, oriented x 3 Skin: normal color, warm/dry, other (VESICLES ABOVE UPPER LIP ON RIGHT, EARLY ERYTHEMATOUS PAPULES ABOVE RIGHT BROW, HYPERSENSITIVITY TO RIGHT SIDE OF FACE.) Progress/Results/Core Measures Results/Orders Lab Results Laboratory Tests Test 07/03/17 18:00 Range/Units White Blood Count 5.1 4.3-11.0 10^3/uL Red Blood Count 4.57 4.35-5.85 10^6/uL Hemoglobin 14.4 11.5-16.0 G/DL Hematocrit 42 35-52 % Mean Corpuscular Volume 92 80-99 FL Mean Corpuscular Hemoglobin 32 25-34 PG Mean Corpuscular Hemoglobin Concent 34 32-36 G/DL Red Cell Distribution Width 12.5 10.0-14.5 % Platelet Count 243 130-400 10^3/uL Mean Platelet Volume 8.7 7.4-10.4 FL Neutrophils (%) (Auto) 56 42-75 % Lymphocytes (%) (Auto) 31 12-44 % Monocytes (%) (Auto) 9 0-12 % Eosinophils (%) (Auto) 4 0-10 % Basophils (%) (Auto) 0 0-10 % Neutrophils # (Auto) 2.9 1.8-7.8 X 10^3 Lymphocytes # (Auto) 1.6 1.0-4.0 X 10^3 Monocytes # (Auto) 0.5 0.0-1.0 X 10^3 Eosinophils # (Auto) 0.2 0.0-0.3 10^3/uL Basophils # (Auto) 0.0 0.0-0.1 10^3/uL Sodium Level 138 135-145 MMOL/L Potassium Level 4.3 3.6-5.0 MMOL/L Chloride Level 103 98-107 MMOL/L Carbon Dioxide Level 23 21-32 MMOL/L Anion Gap 12 5-14 MMOL/L Blood Urea Nitrogen 10 7-18 MG/DL Creatinine 0.82 0.60-1.30 MG/DL Estimat Glomerular Filtration Rate > 60 BUN/Creatinine Ratio 12 Glucose Level 92 70-105 MG/DL Lactic Acid Level 1.10 0.50-2.00 MMOL/L Calcium Level 9.7 8.5-10.1 MG/DL Total Bilirubin 0.4 0.1-1.0 MG/DL Aspartate Amino Transf (AST/SGOT) 19 5-34 U/L Alanine Aminotransferase (ALT/SGPT) 16 0-55 U/L Alkaline Phosphatase 85 40-136 U/L C-Reactive Protein High Sensitivity 0.45 0.00-0.50 MG/DL Total Protein 7.5 6.4-8.2 GM/DL Albumin 4.5 3.2-4.5 GM/DL My Orders Orders - LOGAN AGUILAR DO Lactic Acid Analyzer (07/03/17 17:29) Blood Culture (07/03/17 17:29) Acyclovir Injection (Zovirax Injection) (07/03/17 22:00) Ketorolac Injection (Toradol Injection) (07/03/17 17:39) Acyclovir Injection (Zovirax Injection) (07/03/17 18:06) Ns (Ivpb) (Sodium Chloride 0.9%) (07/03/17 18:07) Vital Signs/I&O 07/03/17 17:04 Temp 97.6 Pulse 79 Resp 18 B/P (MAP) 130/84 (99) O2 Delivery Room Air Blood Pressure Mean: 99 Progress Progress Note : Progress Note SIGNIFICANT IMPROVEMENT IN PAIN WITH TORADOL Departure Communication (Admissions) 1901--MESSAGE LEFT ON DR. CASE'S CELL 1902--SPOKE WITH DR. VIVAS, HE WILL SEE PT IN CONSULT, HE WILL BE UNAVAILABLE AND NO ONCOLOGY COVERAGE OVER THE WEEKEND 1904--SPOKE WITH DR. CASE, ACCEPTS PT FOR ADMIT Impression Primary Impression: RECURRENT HERPES ZOSTER INFECTION RIGHT FACE Additional Impressions: Trigeminal neuralgia of right side of face herpes zoster infection of right trigeminal nerve Disposition: 09 ADMITTED INPATIENT Condition: Improved Admissions Decision to Admit Reason: Admit from ER (General) Decision to Admit/Date: July 03, 2017 Time/Decision to Admit Time: 19:05 Departure-Patient Inst. Referrals: ABELARDO CASE DO (PCP/Family) Primary Care Physician LOGAN AGUILAR DO July 03, 2017 17:49
[2017-07-03] MEDS ORDERED: ACYCLOVIR 500 MG/10 ML INJ (ZOVIRAX) VIAL IV ONE (18:06)
[2017-07-03] MEDS ORDERED: NS (IVPB) 0 ML ONE (18:07)
[2017-07-03 18:38] LABS: BASOPHILS % (AUTO) 0 % (0-10); EOSINOPHILS # (AUTO) 0.2 10^3/uL (0.0-0.3); EOSINOPHILS % (AUTO) 4 % (0-10); HEMATOCRIT 42 % (35-52); HEMOGLOBIN 14.4 G/DL (11.5-16.0); LYMPHOCYTES # (AUTO) 1.6 X 10^3 (1.0-4.0); LYMPHOCYTES % (AUTO) 31 % (12-44); MEAN CORPUSCULAR HEMOGLOBIN 32 PG (25-34); MEAN CORPUSCULAR HGB CONC 34 G/DL (32-36); MEAN CORPUSCULAR VOLUME 92 FL (80-99); MEAN PLATELET VOLUME 8.7 FL (7.4-10.4); MONOCYTES # (AUTO) 0.5 X 10^3 (0.0-1.0); MONOCYTES % (AUTO) 9 % (0-12); NEUTROPHILS # (AUTO) 2.9 X 10^3 (1.8-7.8); NEUTROPHILS % (AUTO) 56 % (42-75); PLATELET COUNT 243 10^3/uL (130-400); RED BLOOD COUNT 4.57 10^6/uL (4.35-5.85); RED CELL DISTRIBUTION WIDTH 12.5 % (10.0-14.5); WHITE BLOOD COUNT 5.1 10^3/uL (4.3-11.0)
[2017-07-03 18:53] LABS: ALANINE AMINOTRANSFERASE 16 U/L (0-55); ALBUMIN 4.5 GM/DL (3.2-4.5); ALKALINE PHOSPHATASE 85 U/L (40-136); BILIRUBIN,TOTAL 0.4 MG/DL (0.1-1.0); BUN/CREATININE RATIO 12; CALCIUM 9.7 MG/DL (8.5-10.1); CARBON DIOXIDE 23 MMOL/L (21-32); CHLORIDE 103 MMOL/L (98-107); CREATININE SERUM 0.82 MG/DL (0.60-1.30); GFR ESTIMATED > 60; GLUCOSE 92 MG/DL (70-105); POTASSIUM 4.3 MMOL/L (3.6-5.0); SODIUM 138 MMOL/L (135-145); TOTAL PROTEIN 7.5 GM/DL (6.4-8.2)
[2017-07-03 20:30] VITALS: BP 146/74
[2017-07-03] MEDS ORDERED: CATHETER FLUSH 10 ML SYR IV PRN (20:45)
[2017-07-03] MEDS: fentaNYL INJECTION 100 MCG/2 ML AMP IV PRN (21:11)
[2017-07-03] MEDS: CATHETER FLUSH 10 ML SYR IV SCH (21:12)
[2017-07-03] MEDS ORDERED: ACYCLOVIR INJECTION 500 MG in NS (IVPB) 250 ML IV SCH (22:00)
[2017-07-04] VITALS: BP 113/57
[2017-07-04] MEDS: KETOROLAC 30 MG/ML VIAL IV SCH ×4 (00:06→17:42)
[2017-07-04] MEDS: ACYCLOVIR 800 MG/NS 250 ML IVPB IV SCH ×6 (02:14→18:16)
[2017-07-04 04:00] VITALS: BP 118/55
[2017-07-04] MEDS: CATHETER FLUSH 10 ML SYR IV SCH ×3 (05:51→22:14)
[2017-07-04 05:54] LABS: BASOPHILS % (AUTO) 0 % (0-10); EOSINOPHILS # (AUTO) 0.2 10^3/uL (0.0-0.3); EOSINOPHILS % (AUTO) 4 % (0-10); HEMATOCRIT 39 % (35-52); HEMOGLOBIN 13.3 G/DL (11.5-16.0); LYMPHOCYTES # (AUTO) 1.5 X 10^3 (1.0-4.0); LYMPHOCYTES % (AUTO) 31 % (12-44); MEAN CORPUSCULAR HEMOGLOBIN 31 PG (25-34); MEAN CORPUSCULAR HGB CONC 34 G/DL (32-36); MEAN CORPUSCULAR VOLUME 91 FL (80-99); MEAN PLATELET VOLUME 8.4 FL (7.4-10.4); MONOCYTES # (AUTO) 0.5 X 10^3 (0.0-1.0); MONOCYTES % (AUTO) 10 % (0-12); NEUTROPHILS # (AUTO) 2.6 X 10^3 (1.8-7.8); NEUTROPHILS % (AUTO) 54 % (42-75); PLATELET COUNT 235 10^3/uL (130-400); RED BLOOD COUNT 4.24 10^6/uL (4.35-5.85); RED CELL DISTRIBUTION WIDTH 12.6 % (10.0-14.5); WHITE BLOOD COUNT 4.8 10^3/uL (4.3-11.0)
[2017-07-04 06:19] LABS: ALANINE AMINOTRANSFERASE 11 U/L (0-55); ALBUMIN 3.8 GM/DL (3.2-4.5); ALKALINE PHOSPHATASE 72 U/L (40-136); BILIRUBIN,TOTAL 0.4 MG/DL (0.1-1.0); BUN/CREATININE RATIO 20; CALCIUM 8.8 MG/DL (8.5-10.1); CARBON DIOXIDE 20 MMOL/L (21-32); CHLORIDE 108 MMOL/L (98-107); CREATININE SERUM 0.76 MG/DL (0.60-1.30); GFR ESTIMATED > 60; GLUCOSE 96 MG/DL (70-105); POTASSIUM 4.1 MMOL/L (3.6-5.0); SODIUM 138 MMOL/L (135-145); TOTAL PROTEIN 5.8 GM/DL (6.4-8.2)
[2017-07-04] MEDS: fentaNYL INJECTION 100 MCG/2 ML AMP IV PRN ×5 (06:55→20:35)
[2017-07-04 08:33] VITALS: BP 134/70
[2017-07-04] MEDS ORDERED: PROP60TA17 PO (09:14)
[2017-07-04] MEDS ORDERED: MELA10TA2 PO (09:14)
--- NOTE | 2017-07-04 12:12 | History & Physicial ---
History of Present Illness History of Present Illness Reason for visit/HPI This is a 46 year old female with a history of recurrent shingles to her right face and chronic postherpetic neuralgia. She recently had increased pain to the right side of her face and noticed blisters just above her lip on the left side. She generally takes zovirax daily as a prophylactic so Valtrex was called out. However, due to the worsening pain she presented to the emergency room and will be admitted for IV antivirals and pain control. Date of Admission July 03, 2017 at 19:24 Date Seen by Provider: July 04, 2017 Time Seen by Provider: 08:40 I consulted on this patient on 07/04/17 12:07 Attending Physician Rosaline Flor DO Admitting Physician Rosaline Flor DO Consult Allergies and Home Medications Allergies Coded Allergies: promethazine (Verified Allergy, Unknown, 04/13/16) vancomycin (Verified Allergy, Unknown, RASH, 09/13/16) reacted to iv vancomycin in cancer center on 01/21 Home Medications Acyclovir 200 Mg Capsule, 400 MG PO BID, (Reported) TAKES 2 (200MG) CAPSULES Carbamazepine 200 Mg Tab.er.12h, 200 MG PO HS, (Reported) Cholecalciferol (Vitamin D3) 5,000 Unit Capsule, 5,000 UNIT PO DAILY, (Reported) Duloxetine HCl 60 Mg Capsule.dr, 60 MG PO DAILY, (Reported) Eszopiclone 2 Mg Tablet, 2 MG PO HS, (Reported) Melatonin 10 Mg Tablet, 10 MG PO HS PRN for SLEEP, (Reported) Propranolol HCl 60 Mg Tablet, 60 MG PO HS, (Reported) Valacyclovir HCl 1,000 Mg Tablet, 1,000 MG PO TID, (Reported) 14 DAY SUPPLY FILLED 07-02-17 (ACYCLOVIR ON HOLD WHILE SHE IS TAKING THIS) Patient Home Medication List Home Medication List Reviewed: Yes Past Fnmdibs-Kiuncm-Ufticj Hx Patient Social History Marrital Status: Alcohol Use: Denies Use Recreational Drug Use: No Smoking Status: Never a Smoker 2nd Hand Smoke Exposure: No Physical Abuse Screen: No Sexual Abuse: No Recent Foreign Travel: No Contact w/other who traveled: No Recent Hopitalizations: No (09/13/16) Recent Infectious Disease Expo: No Immunizations Up To Date Tetanus Booster (TDap): Unknown Pediatric: Yes Seasonal Allergies Seasonal Allergies: No Surgeries Yes Abdominal, Bladder Surgery, Section, Gallbladder, Hysterectomy Respiratory No Currently Using CPAP: No Currently Using BIPAP: No Cardiovascular Yes Neurological Yes Headaches /Migraines Reproductive System : No Hx Reproductive Disorders: Yes (Surgeries for Ovarian cysts) Sexually Transmitted Disease: No HIV/AIDS: No Female Reproductive Disorders: Endometriosis, Ovarian Cyst 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 (OVARIES INTACT--IS 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 OF 07/03/17) Genitourinary Yes UTI-Chronic Gastrointestinal Yes Gastroesophageal Reflux, Esophagitis, Gall Bladder Disease, Irritable Bowel Musculoskeletal No (radiculopathy) Fibromyalgia Endocrine History of Endocrine Disorders: No HEENT History of HEENT Disorders: Yes (DRY MOUTH) HEENT Disorders: Dysphagia Loss of Vision: Denies Hearing Impairment: Denies Cancer Yes Melanoma Did You Recieve Any Treatments: Yes Type of Treatment: Chemotherapy, Radiation, Surgical Intervention Psychosocial History of Psychiatric Problem: Yes Behavioral Health Disorders: Anxiety, Depression Integumentary History of Skin or Integumenta: Yes (RECURRENT HZV TO RIGHT FACE) Skin/Integumentary Disorders: Recent Skin Changes Blood Transfusions History of Blood Disorders: No Adverse Reaction to a Blood Tr: No Family Medical History Significant Family History: No Pertinent Family Hx Family Hx: Arthritis 19 MOTHER G8 SISTER Cataracts 19 MOTHER Congenital heart disease 19 FATHER (HEART DZ) Diabetes mellitus 19 FATHER Hypertension 19 FATHER Myocardial infarction 19 FATHER Respiratory disorder 19 FATHER (EMPHYSEMA) Seizure disorder G8 BROTHER (CEBERAL PALSY ALOS) Constitutional: No no symptoms reported, No see HPI, No chills, No diaphoresis , No dizziness, No fever, No malaise, No weakness, No weight gain, No weight loss, No other EENTM: other (right facial pain) Respiratory: No no symptoms reported, No see HPI, No cough, No dyspnea on exertion, No hemoptysis, No orthopnea, No phlegm, No short of breath, No stridor , No wheezing, No other Cardiovascular: No no symptoms reported, No see HPI, No chest pain, No edema, No Hx of Intervention, No palpitations, No syncope, No vascular heart diseas, No other Gastrointestinal: No RUQ, No LUQ, No RLQ, No LLQ, No no symptoms reported, No see HPI, No abdominal pain, No constipation, No diarrhea, No dysphagia, No hematemesis, No heartburn, No jaundice, No loss of appetite, No melena, No nausea, No vomiting, No other Genitourinary: No no symptoms reported, No see HPI, No decreased output, No discharge, No dysuria, No frequency, No hematuria, No hesitancy, No incontinence , No nocturia, No pain, No other Musculoskeletal: No no symptoms reported, No see HPI, No back pain, No gout, No joint pain, No joint swelling, No muscle pain, No muscle stiffness, No muscle cramps, No muscle twitching, No muscle weakness, No neck pain; other Skin: lesions (left upper lip area vesicles) Psychiatric/Neurological: Paresthesia (pain left face) Physical Exam Vital Signs Vital Signs - First Documented 07/03/17 07/03/17 17:04 19:39 Temp 97.6 Pulse 79 Resp 18 B/P (MAP) 130/84 (99) Pulse Ox 98 O2 Delivery Room Air Capillary Refill : Less Than 3 Seconds General Appearance: No Apparent Distress HEENT: Normal ENT Inspection Neck: Supple Respiratory: Lungs Clear Cardiovascular: Regular Rate, Rhythm Back: No CVA Tenderness Extremity: Non Tender, No Calf Tenderness, No Pedal Edema Neurologic/Psychiatric: Alert, Oriented x3 Skin: Other (small patch of vesicles just above left lip just to midline) Comments Laboratory Tests 07/03/17 18:00: White Blood Count 5.1, Red Blood Count 4.57, Hemoglobin 14.4, Hematocrit 42, Mean Corpuscular Volume 92, Mean Corpuscular Hemoglobin 32, Mean Corpuscular Hemoglobin Concent 34, Red Cell Distribution Width 12.5, Platelet Count 243, Mean Platelet Volume 8.7, Neutrophils (%) (Auto) 56, Lymphocytes (%) (Auto) 31, Monocytes (%) (Auto) 9, Eosinophils (%) (Auto) 4, Basophils (%) (Auto) 0, Neutrophils # (Auto) 2.9, Lymphocytes # (Auto) 1.6, Monocytes # (Auto) 0.5, Eosinophils # (Auto) 0.2, Basophils # (Auto) 0.0, Sodium Level 138, Potassium Level 4.3, Chloride Level 103, Carbon Dioxide Level 23, Anion Gap 12, Blood Urea Nitrogen 10, Creatinine 0.82, Estimat Glomerular Filtration Rate > 60, BUN/ Creatinine Ratio 12, Glucose Level 92, Lactic Acid Level 1.10, Calcium Level 9.7 , Total Bilirubin 0.4, Aspartate Amino Transf (AST/SGOT) 19, Alanine Aminotransferase (ALT/SGPT) 16, Alkaline Phosphatase 85, C-Reactive Protein High Sensitivity 0.45, Total Protein 7.5, Albumin 4.5, Carbamazepine (Tegretol) Level 3.2L 07/04/17 05:41: White Blood Count 4.8, Red Blood Count 4.24L, Hemoglobin 13.3, Hematocrit 39, Mean Corpuscular Volume 91, Mean Corpuscular Hemoglobin 31, Mean Corpuscular Hemoglobin Concent 34, Red Cell Distribution Width 12.6, Platelet Count 235, Mean Platelet Volume 8.4, Neutrophils (%) (Auto) 54, Lymphocytes (%) (Auto) 31, Monocytes (%) (Auto) 10, Eosinophils (%) (Auto) 4, Basophils (%) (Auto) 0, Neutrophils # (Auto) 2.6, Lymphocytes # (Auto) 1.5, Monocytes # (Auto) 0.5, Eosinophils # (Auto) 0.2, Basophils # (Auto) 0.0, Sodium Level 138, Potassium Level 4.1, Chloride Level 108H, Carbon Dioxide Level 20L, Anion Gap 10, Blood Urea Nitrogen 15, Creatinine 0.76, Estimat Glomerular Filtration Rate > 60, BUN/ Creatinine Ratio 20, Glucose Level 96, Calcium Level 8.8, Total Bilirubin 0.4, Aspartate Amino Transf (AST/SGOT) 10, Alanine Aminotransferase (ALT/SGPT) 11, Alkaline Phosphatase 72, Total Protein 5.8L, Albumin 3.8 Assessment/Plan Assessment and Plan 1. Recurrent Herpes Zoster of face--admit for IV zovirax and pain control 2. Postherpetic neuralgia--restart home meds 3. Hypertension--monitor BP without meds as patient has not been taking propranolol Admission Diagnosis Admission Status: Inpatient Order (span 2 midnights) Reason for Inpatient Admission: Will require IV antivirals for at least 48hrs or longer Clinical Quality Measures DVT/VTE Risk/Contraindication: Risk Factor Score Per Nursin RFS Level Per Nursing on Admit: 2=Moderate ROSALINE FLOR DO July 04, 2017 12:12
[2017-07-04] MEDS ORDERED: NON-FORMULARY MEDICATION 1 EA EA (Melatonin 10 MG) PO PRN (12:15)
[2017-07-04] MEDS ORDERED: PATIENT MAY USE OWN MEDS, ALL MC SCH (12:15)
[2017-07-04 12:34] VITALS: BP 120/63
[2017-07-04] MEDS ORDERED: DULoxetine 30 MG (CYMBALTA) CAP ONE (13:23)
[2017-07-04] MEDS: DULoxetine 30 MG (CYMBALTA) CAP PO SCH (13:30)
[2017-07-04 16:20] VITALS: BP 129/67
[2017-07-04 20:00] VITALS: BP 135/64
[2017-07-04] MEDS: MICONAZOLE 2% POWDER (DESENEX AF) 90 GM TOP SCH (20:25)
[2017-07-04] MEDS ORDERED: NON-FORMULARY MEDICATION 1 EA EA (Eszopiclone 2 MG) PO SCH (21:00)
[2017-07-04] MEDS ORDERED: CARBAMAZEPINE 200 MG PO SCH (21:00)
[2017-07-04] MEDS: carBAMazepine 200 MG (TEGretol) TAB PO SCH (22:13)
[2017-07-04] MEDS: ZOLPIDEM 5 MG (AMBIEN) TAB PO SCH (22:13)
[2017-07-05] MEDS: KETOROLAC 30 MG/ML VIAL IV SCH ×3 (00:32→13:54)
[2017-07-05 00:46] VITALS: BP 144/65
[2017-07-05] MEDS: ACYCLOVIR 800 MG/NS 250 ML IVPB IV SCH ×4 (02:48→13:53)
[2017-07-05 04:27] VITALS: BP 137/68
[2017-07-05] MEDS: CATHETER FLUSH 10 ML SYR IV SCH ×3 (06:27→21:10)
[2017-07-05 08:05] VITALS: BP 134/63
[2017-07-05] MEDS ORDERED: NON-FORMULARY MEDICATION 1 EA EA (Cholecalciferol (Vitamin D3) (Vitamin D) 5,000 UNIT) PO SCH (09:00)
[2017-07-05] MEDS ORDERED: NON-FORMULARY MEDICATION 1 EA EA (Duloxetine HCl 60 MG) PO SCH (09:00)
[2017-07-05] MEDS: VITAMIN D3 5,000 UNITS (CHOLECALCIFEROL ) CAPSULE PO SCH (09:04)
[2017-07-05] MEDS: DULoxetine 30 MG (CYMBALTA) CAP PO SCH (09:04)
[2017-07-05] MEDS: MICONAZOLE 2% POWDER (DESENEX AF) 90 GM TOP SCH ×2 (09:04→21:10)
--- NOTE | 2017-07-05 12:48 | Progress Note (SOAP) ---
Subjective Date Seen by Provider: July 05, 2017 Time Seen by Provider: 12:44 Subjective/Events-last exam Fwup recurrent facial shingles, postherpetic neuropathy. Attempting midline due to poor IV access. Focused Exam Lactate Level 07/03/17 18:00: Lactic Acid Level 1.10 Objective Exam Vital Signs Date Time Temp Pulse Resp B/P (MAP) Pulse Ox O2 Delivery O2 Flow Rate FiO2 07/05/17 09:00 Room Air 07/05/17 08:05 97.5 85 18 134/63 (86) 96 Room Air 07/05/17 04:27 97.9 87 17 137/68 (91) 96 Room Air 07/05/17 00:46 98.1 91 20 144/65 (91) 98 Room Air 07/04/17 21:00 Room Air 07/04/17 20:00 97.7 80 18 135/64 (87) 98 Room Air 07/04/17 16:20 97.1 79 18 129/67 (87) 98 Room Air I & O 07/05/17 07:00 Intake Total 2962 ml Balance 2962 ml Capillary Refill : Less Than 3 Seconds General Appearance: No Apparent Distress Neck: Supple Neurologic/Psychiatric: Alert, Oriented x3 Skin: Other (vesicles to left upper lip improving) Results Lab Microbiology 07/03/17 Blood Culture - Preliminary, Resulted No growth Assessment/Plan Assessment/Plan Assess & Plan/Chief Complaint 1. Recurrent herpes zoster of face--continue IV zovirax 2. Postherpetic Neuralgia--pain improved 3. Poor IV access--may need surgery consult if unable to obtain midline Clinical Quality Measures Admission Status Admission Dx 1. Recurrent Herpes Zoster of face--admit for IV zovirax and pain control 2. Postherpetic neuralgia--restart home meds 3. Hypertension--monitor BP without meds as patient has not been taking propranolol DVT/VTE Risk/Contraindication: Risk Factor Score Per Nursin RFS Level Per Nursing on Admit: 2=Moderate ABELARDO CASE DO July 05, 2017 12:48 pm
[2017-07-05 13:25] VITALS: BP 109/51
--- NOTE | 2017-07-05 15:06 | CONSULTATION REPORT ---
DATE OF SERVICE: 07/04/2017 The patient is admitted to room 415. REFERRING AND PRIMARY PHYSICIAN: Rosaline Flor DO IMPRESSION: 1. A 46-year-old female admitted with right-sided facial pain and headaches. The patient has a history of recurrent Herpes zoster infections. 2. Remote history of malignant melanoma requiring right radical neck dissection as well as a supraclavicular lymph node dissection followed by radiation therapy. She completed adjuvant therapy with interferon for one year. 3. History of metastatic melanoma to the abdominal wall, status post wide excision. RECOMMENDATIONS: 1. Agree with IV acyclovir as you are doing. 2. Pain control with fentanyl and nonsteroidal agents. 3. Continue Cymbalta and carbamazepine. 4. She has no evidence of metastatic melanoma at this time and we will continue surveillance. HISTORY OF PRESENT ILLNESS: The patient is a 46-year-old female with a history of melanoma diagnosed in the past. She underwent right radical neck dissection as well as supraclavicular lymph node dissection followed by radiation therapy. She also received adjuvant interferon therapy for one year, completed all treatments 15 years ago. Three months later, she developed a solitary metastatic site on the anterior abdominal wall and underwent wide excision. She has been on surveillance since then without evidence of recurrence. More than 5 to 6 years ago, she started developing recurrent episodes of herpes viral infection involving the right side of the face requiring IV antiviral therapy. She is on suppressive doses of antiviral agent, but in spite of this, she does have occasional flare ups. Currently, she was evaluated at the Emergency Room and admitted with another flare up. PAST MEDICAL HISTORY: Unremarkable. PAST SURGICAL HISTORY: Include the right radical neck dissection as well as right supraclavicular lymph node dissection. SOCIAL HISTORY: The patient is and lives near [place], [place]. She has two children, a son and a stepson. 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 She denied any history of tobacco, alcohol or other recreational drug use. FAMILY HISTORY: Unremarkable with no major malignancies in the family that the family knows of. PHYSICAL EXAMINATION: GENERAL: Showed middle-aged female, awake and oriented, in mild discomfort because of the recurrent herpes infection. VITAL SIGNS: Temperature was 97.5, pulse rate of 85, respirations 18, blood pressure 134/63, oxygen saturation 96% on room air. HEENT: Normocephalic. Extraocular muscles intact. A few erythematous lesions on her right forehead and right side of the face, as well as the upper lip. No involvement of the right eye clinically. Oral mucosa moist without lesions. NECK: Showed right radical dissection changes. No nodules or masses palpable. This was symmetrical. LUNGS: Clear to auscultation without wheezes or rales. HEART: Regular rate and rhythm without murmur or gallops. ABDOMEN: Soft, nontender with no hepatosplenomegaly or mass. EXTREMITIES: Showed no edema. NEUROLOGIC: Grossly intact without focal motor deficits. LABORATORY DATA: CBC done on 07/03/2017 showed WBC 4.8, hemoglobin 13.3, platelet count 235,000 with neutrophil count of 2.6. Chemistry panel showed normal electrolyte except a CO2 level of 20. BUN was 15 and creatinine 0.76 with GFR more than 50 mL per minute. Liver function studies are within normal limits. Thank you for allowing me to participate in this patient's care. I will follow the patient with you. Job ID: [id number] DocumentID: [id number] Dictated Date: 07/05/2017 11:02:41 Seamless Tube Roller Date: 07/05/2017 14:14:14 Dictated By: MARYSE VIVAS MD [facility]
[2017-07-05] MEDS ORDERED: ACYCLOVIR 400 MG TABLET (ZOVIRAX) PO SCH (16:00)
[2017-07-05] MEDS: ACYCLOVIR 400 MG TABLET (ZOVIRAX) PO SCH ×2 (16:45→21:09)
[2017-07-05] MEDS: HYDROcodone/APAP 5 MG/325 MG (LORTAB) TAB PO PRN ×2 (16:46→21:09)
--- NOTE | 2017-07-05 16:47 | Consultation ---
History of Present Illness History of Present Illness Patient Consulted On(john/time) 07/05/17 16:40 Date Seen by Provider: July 05, 2017 Time Seen by Provider: 16:40 History of Present Illness Consult requested by Dr. Flor for port placement. Patient is a 46 year old female that has history of metastatic melanoma. She has had several admissions for herpes zoster requiring IV Acyclovir. Patient without any IV access. Picc lines were attempted today without any success. Patient states that she has had a port before which gave her discomfort and was removed, she had a groshong catheter previously as well. She states that she has post-herpetic pain. She has painful lesions on left upper face. Denies n/ v fever sweats chills shortness of breath or chest pain. Allergies and Home Medications Allergies Coded Allergies: promethazine (Verified Allergy, Unknown, 04/13/16) vancomycin (Verified Allergy, Unknown, RASH, 09/13/16) reacted to iv vancomycin in cancer center on 01/21 Home Medications Acyclovir 200 Mg Capsule, 400 MG PO BID, (Reported) TAKES 2 (200MG) CAPSULES Carbamazepine 200 Mg Tab.er.12h, 200 MG PO HS, (Reported) Cholecalciferol (Vitamin D3) 5,000 Unit Capsule, 5,000 UNIT PO DAILY, (Reported) Duloxetine HCl 60 Mg Capsule.dr, 60 MG PO DAILY, (Reported) Eszopiclone 2 Mg Tablet, 2 MG PO HS, (Reported) Melatonin 10 Mg Tablet, 10 MG PO HS PRN for SLEEP, (Reported) Propranolol HCl 60 Mg Tablet, 60 MG PO HS, (Reported) Valacyclovir HCl 1,000 Mg Tablet, 1,000 MG PO TID, (Reported) 14 DAY SUPPLY FILLED 07-02-17 (ACYCLOVIR ON HOLD WHILE SHE IS TAKING THIS) Patient Home Medication List Home Medication List Reviewed: Yes Past Ttumznv-Ofxwip-Wlgrcj Hx Patient Social History Alcohol Use: Denies Use Recreational Drug Use: No Smoking Status: Never a Smoker 2nd Hand Smoke Exposure: No Recent Foreign Travel: No Contact w/Someone Who Travel: No Recent Infectious Disease Expo: No Recent Hopitalizations: No (09/13/16) Physical Abuse Screen: No Sexual Abuse: No Immunizations Up To Date Tetanus Booster (TDap): Unknown PED Vaccines UTD: Yes Seasonal Allergies Seasonal Allergies: No Surgeries History of Surgeries: Yes Surgeries: Abdominal, Bladder Surgery, Section, Gallbladder, Hysterectomy Respiratory History of Respiratory Disorde: No Cardiovascular History of Cardiac Disorders: Yes Neurological History of Neurological Disord: Yes Neurological Disorders: Headaches /Migraines Reproductive System : No Hx Reproductive Disorders: Yes (Surgeries for Ovarian cysts) Sexually Transmitted Disease: No HIV/AIDS: No Female Reproductive Disorders: Endometriosis, 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--IS 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 OF 07/03/17) Genitourinary History of Genitourinary Disor: Yes Genitourinary Disorders: UTI-Chronic Gastrointestinal History of Gastrointestinal Di: Yes Gastrointestinal Disorders: Gastroesophageal Reflux, Esophagitis, Gall Bladder Disease, Irritable Bowel Musculoskeletal History of Musculoskeletal Dis: No (radiculopathy) Musculoskeletal Disorders: Fibromyalgia Endocrine History of Endocrine Disorders: No HEENT History of HEENT Disorders: Yes (DRY MOUTH) HEENT Disorders: Dysphagia Loss of Vision: Denies Hearing Impairment: Denies Cancer History of Cancer: Yes Cancer: Melanoma Psychosocial History of Psychiatric Problem: Yes Behavioral Health Disorders: Anxiety, Depression Integumentary History of Skin or Integumenta: Yes (RECURRENT HZV TO RIGHT FACE) Skin/Integumentary Disorders: Recent Skin Changes Blood Transfusions History of Blood Disorders: No Adverse Reaction to a Blood Tr: No Family Medical History Significant Family History: No Pertinent Family Hx Family Medial History: Arthritis 19 MOTHER G8 SISTER Cataracts 19 MOTHER Congenital heart disease 19 FATHER (HEART DZ) Diabetes mellitus 19 FATHER Hypertension 19 FATHER Myocardial infarction 19 FATHER Respiratory disorder 19 FATHER (EMPHYSEMA) Seizure disorder G8 BROTHER (CEBERAL PALSY ALOS) Review of Systems-General Constitutional: no symptoms reported EENTM: other (facial pain) Respiratory: no symptoms reported Cardiovascular: no symptoms reported Gastrointestinal: no symptoms reported Genitourinary: no symptoms reported Musculoskeletal: no symptoms reported Skin: hx of skin cancer, lesions Psychiatric/Neurological: Paresthesia Physical Exam-General Problems Physical Exam Vital Signs Vital Signs - First Documented 07/03/17 07/03/17 17:04 19:39 Temp 97.6 Pulse 79 Resp 18 B/P (MAP) 130/84 (99) Pulse Ox 98 O2 Delivery Room Air Capillary Refill : Less Than 3 Seconds General Appearance: no apparent distress HEENT: PERRL/EOMI Neck: other (right neck scar/changes from radical neck dissection) Respiratory: chest non-tender, no respiratory distress, no accessory muscle use Cardiovascular: regular rate, rhythm Gastrointestinal: non tender, soft, no organomegaly Rectal: deferred Back: no CVA tenderness Extremities: non-tender Neurologic/Psychiatric: alert, normal mood/affect, oriented x 3 Skin: warm/dry (lesion left upper lip) Lymphatic: no adenopathy Data Review Labs Microbiology 07/03/17 Blood Culture - Preliminary, Resulted No growth Assessment/Plan Assessment/Plan Assessment/Plan Recurrent herpes zoster of face Postherpetic Neuralgia Poor IV access On zovirax IV, a Midline/picc line attempted multiple times without any success earlier. I discussed with Dr. Flor Central line vs Port placement and since access has been an issue multiple times and she has required hospitalization multiple time recently would benefit from having port place. She understands risks and benefits and wishes to proceed with port placement. NPO after midnight port in am. Clinical Quality Measures DVT/VTE Risk/Contraindication: Risk Factor Score Per Nursin RFS Level Per Nursing on Admit: 2=Moderate YOMAIRA MCKENZIE DO July 05, 2017 16:47
--- NOTE | 2017-07-05 18:03 | Progress Note-Standard ---
Standard Progress Note Progress Notes/Assess & Plan Date Seen by Provider: July 05, 2017 Time Seen by Provider: 17:58 Progress/Assessment & Plan 46-year-old female admitted with a flareup of herpes zoster involving the right side of face. Patient has history of melanoma and has undergone right radical neck dissection as well as supraclavicular lymph node dissection in the past. Significant postherpetic neuralgia and admitted for IV acyclovir as well as pain control. Patient is doing better today with no new lesions. She complained of right earache today but has no lesions. She has poor venous access and the nursing staff unable to place a midline. Surgery has been consult for a port placement tomorrow morning. Currently on acyclovir 800 mg by mouth 5 times a day until IV access available. Continue IV acyclovir and pain control as you are doing. I will be out of town until Sunday. There is no oncology coverage this weekend. Contact me by cell phone for emergencies. Focused Exam Lactate Level 07/03/17 18:00: Lactic Acid Level 1.10 MARYSE VIVAS July 05, 2017 18:02
[2017-07-05 20:12] VITALS: BP 150/77
[2017-07-05] MEDS: POLYETHYLENE GLYCOL 17 GM (MIRALAX) PACK PO SCH (20:17)
[2017-07-05] MEDS: ZOLPIDEM 5 MG (AMBIEN) TAB PO SCH (21:09)
[2017-07-05] MEDS: carBAMazepine 200 MG (TEGretol) TAB PO SCH (21:09)
[2017-07-06] MEDS: HYDROcodone/APAP 5 MG/325 MG (LORTAB) TAB PO PRN ×3 (00:02→17:51)
[2017-07-06 00:27] VITALS: BP 117/76
[2017-07-06 04:30] VITALS: BP 122/60
[2017-07-06] MEDS: CATHETER FLUSH 10 ML SYR IV SCH ×3 (06:49→21:36)
[2017-07-06] MEDS: ACYCLOVIR 400 MG TABLET (ZOVIRAX) PO SCH ×2 (06:50→09:20)
[2017-07-06 08:00] VITALS: BP 120/77
[2017-07-06] MEDS: VITAMIN D3 5,000 UNITS (CHOLECALCIFEROL ) CAPSULE PO SCH (08:07)
[2017-07-06] MEDS: DULoxetine 30 MG (CYMBALTA) CAP PO SCH (08:07)
[2017-07-06] MEDS ORDERED: BUPIVACAINE 0.5% 30 ML (SENSORCAINE) VIAL ONE (09:17)
[2017-07-06] MEDS ORDERED: HEParin (CENTRAL IV FLUSH) 500 UNIT/5 ML SYR ONE (09:17)
[2017-07-06] MEDS ORDERED: LIDOCAINE 1% INJ 20 ML 20 ML VIAL ONE (09:17)
[2017-07-06] MEDS ORDERED: 0.9% SODIUM CHLORIDE PF INJ 20 ML VIAL ONE (09:17)
--- NOTE | 2017-07-06 09:17 | Progress Note-Pre Operative ---
Pre-Operative Progress Note H&P Reviewed The H&P was reviewed, patient examined and no changes noted. Date Seen by Provider: July 06, 2017 Time Seen by Provider: 09:16 Date H&P Reviewed: July 06, 2017 Time H&P Reviewed: 09:16 Pre-Operative Diagnosis: poor venous access, recurrent herpes zoster of face YOMAIRA MCKENZIE DO July 06, 2017 09:17
[2017-07-06] MEDS: MICONAZOLE 2% POWDER (DESENEX AF) 90 GM TOP SCH ×2 (09:20→21:36)
[2017-07-06] MEDS ORDERED: DEXAMETHASONE 10 MG/ML (DECADRON) 1 ML VIAL ONE (09:37)
[2017-07-06] MEDS ORDERED: proPOfol 200 MG/20 ML (DIPRIVAN) VIAL IV ONE (09:37)
[2017-07-06] MEDS ORDERED: ONDANSETRON 4 MG/2 ML (SDV) Z0FRAN ONE (09:37)
[2017-07-06] MEDS ORDERED: SEVOFLURANE (ULTANE) 15 ML INHAL SOLN ONE (09:37)
[2017-07-06] MEDS ORDERED: MIDAZOLAM 2 MG/2 ML (VERSED) VIAL ONE (09:38)
[2017-07-06] MEDS ORDERED: fentaNYL INJECTION 100 MCG/2 ML AMP ONE (09:38)
[2017-07-06] MEDS ORDERED: LACTATED RINGERS 1,000 ML IV SCH (10:00)
[2017-07-06] MEDS ORDERED: ceFAZolin 1,000 MG (ANCEF) VIAL ONE (10:03)
[2017-07-06] MEDS ORDERED: LIDOCAINE PF 2% 5 ML (XYLOCAINE) VIAL ONE (10:11)
[2017-07-06] MEDS ORDERED: ceFAZolin 1,000 MG (ANCEF) VIAL IV ONE (10:30)
--- NOTE | 2017-07-06 10:40 | Progress Note-Post Operative ---
Post-Operative Progess Note Surgeon (s)/Tribal Delegate (s) Surgeon YOMAIRA MCKENZIE DO Tribal Delegate: na Pre-Operative Diagnosis poor venous access, recurrent herpes zoster of face Post-Operative Diagnosis same Procedure & Operative Findings Date of Procedure 07/06/17 Procedure Performed/Findings left subclavian port placement Anesthesia Type mac c local Estimated Blood Loss Estimated blood loss (mL): min Specimens/Packing Specimens Removed na YOMAIRA MCKENZIE DO July 06, 2017 10:40
[2017-07-06] MEDS ORDERED: ONDANSETRON 4 MG/2 ML (SDV) Z0FRAN IVP PRN (10:45)
[2017-07-06] MEDS ORDERED: morphine INJ 10 MG/ML 1ML (SYR OR VIAL) IVP PRN (10:45)
--- NOTE | 2017-07-06 11:23 | Diagnostic Imaging Report ---
INDICATION: Power port placement. TIME OF EXAM: 10:56 AM Correlation is made with prior study 04/17/2016. FINDINGS: Left subclavian port appears to have tip overlying the upper portion of the right atrium. No pneumothorax is seen. Lungs are clear. There is no effusion. IMPRESSION: Power port placement, as described. Dictated by: Dictated on workstation # [id number]
--- NOTE | 2017-07-06 11:36 | Progress Note ---
Subjective Date Seen by Provider: July 06, 2017 Time Seen by Provider: 11:35 Subjective/Events-last exam Port placed. No issues. Chest x ray no pneumothorax, okay to use port. Focused Exam Lactate Level 07/03/17 18:00: Lactic Acid Level 1.10 Objective Exam Vital Signs Date Time Temp Pulse Resp B/P (MAP) Pulse Ox O2 Delivery O2 Flow Rate FiO2 07/06/17 08:00 96.8 88 22 120/77 (91) 99 Room Air 07/06/17 04:30 98.2 83 18 122/60 (80) 96 Room Air 07/06/17 00:27 97.8 98 19 117/76 (90) 96 Room Air 07/05/17 21:00 Room Air 07/05/17 20:12 98.4 93 16 150/77 (101) 98 Room Air 07/05/17 13:25 98.0 81 18 109/51 (70) 98 Room Air I & O 07/06/17 07:00 Intake Total 2448 ml Balance 2448 ml Capillary Refill : Less Than 3 Seconds General Appearance: No Apparent Distress HEENT: Normal ENT Inspection Neck: Supple Respiratory: Lungs Clear Cardiovascular: Regular Rate, Rhythm Gastrointestinal: non tender, soft, no organomegaly Extremity: Non Tender, No Calf Tenderness, No Pedal Edema Neurologic/Psychiatric: Alert, Oriented x3 Skin: Other (vesicles to left upper lip improving) Results Lab Microbiology 07/03/17 Blood Culture - Preliminary, Resulted No growth Assessment/Plan Assessment/Plan Assessment/Plan Recurrent herpes zoster of face Postherpetic Neuralgia Poor IV access Port placed. Okay to use. Will sign off call if needed. Clinical Quality Measures DVT/VTE Risk/Contraindication: Risk Factor Score Per Nursin RFS Level Per Nursing on Admit: 2=Moderate YOMAIRA MCKENZIE DO July 06, 2017 11:36
[2017-07-06 11:40] VITALS: BP 126/61
[2017-07-06] MEDS ORDERED: HEParin (CENTRAL IV FLUSH) 500 UNIT/5 ML SYR IV ONE (11:45)
[2017-07-06] MEDS ORDERED: LIDOCAINE 1% INJ 20 ML 20 ML VIAL INJ ONE (11:45)
[2017-07-06] MEDS ORDERED: BUPIVACAINE 0.5% 30 ML (SENSORCAINE) VIAL INJ ONE (11:45)
[2017-07-06] MEDS ORDERED: 0.9% SODIUM CHLORIDE PF INJ 10 ML VIAL IV ONE (11:45)
[2017-07-06] MEDS: fentaNYL INJECTION 100 MCG/2 ML AMP IV PRN ×3 (11:50→19:35)
--- NOTE | 2017-07-06 12:25 | Anesthesia-General Post-Op ---
General Patient Condition Mental Status/LOC: Same as Preop Cardiovascular: Satisfactory Nausea/Vomiting: Absent Respiratory: Satisfactory Pain: Controlled Complications: Absent Post Op Complications Complications None Follow Up Care/Instructions Patient Instructions None needed. Anesthesia/Patient Condition Patient Condition Patient is doing well, no complaints, stable vital signs, no apparent adverse anesthesia problems. No complications reported per nursing. LORENE SANTIAGO CRNA July 06, 2017 12:25
[2017-07-06] MEDS ORDERED: POLYETHYLENE GLYCOL 17 GM (MIRALAX) PACK PO ONE (13:00)
[2017-07-06] MEDS: ACYCLOVIR 800 MG/NS 250 ML IVPB IV SCH ×4 (13:21→21:35)
[2017-07-06] MEDS ORDERED: ACYCLOVIR 800 MG/NS 250 ML IVPB IV NR ×2 (14:00)
--- NOTE | 2017-07-06 14:22 | Diagnostic Imaging Report ---
INDICATION: Power port placement. Fluoroscopy was provided in the OR during power port placement. 26 seconds of fluoroscopy was utilized. Left subclavian port is noted. IMPRESSION: Fluoroscopy for power port placement. Dictated by: Dictated on workstation # [id number]
[2017-07-06 16:30] VITALS: BP 138/62
[2017-07-06 20:00] VITALS: BP 131/73
--- NOTE | 2017-07-06 21:12 | OPERATIVE REPORT ---
DATE OF SERVICE: 07/06/2017 PREOPERATIVE DIAGNOSES: Recurrent herpes zoster face, poor venous access. INDICATIONS: The patient is a 46-year-old female who has had several admissions for herpes zoster requiring IV antiviral. She has poor venous access. It was requested that a port be placed due to the multiple admissions and always issues with venous access. She understands risks and benefits of procedure and wished to proceed with procedure. Consent was signed on chart. DESCRIPTION OF PROCEDURE: The patient was taken to the operating suite. She was prepped and draped in sterile fashion. Surgical pause was performed. Local anesthetic was infiltrated in the left chest area. Using micro access needle, the left subclavian vein was accessed. Dark nonpulsatile blood was withdrawn. The micro access wire was inserted and the needle was removed. Fluoroscopy assured proper placement. The incision was made in the left upper chest incorporating the insertion point for the wire. Micro access dilator sheath was then advanced over the wire and the wire was removed. The normal guidewire was inserted and fluoroscopy assured proper placement. This was then secured. A pocket was created over the left chest for the port to sit within. The dilator sheath was then advanced over the guidewire. The dilator and wire were then removed and the Groshong catheter was inserted through the sheath. The sheath was then removed. The Groshong wire was removed. Fluoroscopy was used to cut the catheter to length and then attach to the port which was placed within the pocket created on the left chest. The port was then accessed without difficulty. It was then flushed with saline and heparin. The subcutaneous tissues were then reapproximated using 3-0 Vicryl. Skin was then closed using 4-0 Vicryl. The area was then washed and dried and Dermabond was placed over the incisions. The port was left accessed for use. The patient tolerated procedure well without any complications. She was taken to recovery room in stable condition. Chest x-ray pending. Job ID: [id number] DocumentID: [id number] Dictated Date: 07/06/2017 11:42:21 Licensed Optician Date: 07/06/2017 21:12:50 Dictated By: DO ODETTE RAMOS
[2017-07-06] MEDS: POLYETHYLENE GLYCOL 17 GM (MIRALAX) PACK PO SCH (21:35)
[2017-07-06] MEDS: carBAMazepine 200 MG (TEGretol) TAB PO SCH (21:36)
[2017-07-06] MEDS: ZOLPIDEM 5 MG (AMBIEN) TAB PO SCH (21:36)
--- NOTE | 2017-07-06 21:47 | Progress Note (SOAP) ---
Subjective Date Seen by Provider: July 06, 2017 Time Seen by Provider: 21:44 Subjective/Events-last exam Fwup recurrent facial shingles, postherpetic neuropathy, poor IV access. Had port placed this morning so now back on IV zovirax. Objective Exam Vital Signs Date Time Temp Pulse Resp B/P (MAP) Pulse Ox O2 Delivery O2 Flow Rate FiO2 07/06/17 20:30 Room Air 07/06/17 16:30 97.6 92 18 138/62 (87) 96 Room Air 07/06/17 11:40 96.5 75 18 126/61 (82) 95 Room Air 07/06/17 08:00 96.8 88 22 120/77 (91) 99 Room Air 07/06/17 04:30 98.2 83 18 122/60 (80) 96 Room Air 07/06/17 00:27 97.8 98 19 117/76 (90) 96 Room Air I & O 07/06/17 07:00 Intake Total 2448 ml Balance 2448 ml Capillary Refill : Less Than 3 Seconds General Appearance: No Apparent Distress Neck: Supple Respiratory: Lungs Clear Cardiovascular: Regular Rate, Rhythm Neurologic/Psychiatric: Alert, Oriented x3 Skin: Other (patch of vesicles on erythemic base to left upper lip area ) Results Lab Microbiology 07/03/17 Blood Culture - Preliminary, Resulted No growth Assessment/Plan Assessment/Plan Assess & Plan/Chief Complaint 1. Recurrent herpes zoster of face--resume IV zovirax--will need IV Zovirax until facial lesions healing well as patient has a history of recurrence if quits IV antivirals too quickly 2. Postherpetic Neuralgia--pain improved 3. Poor IV access--port placement today by surgery Clinical Quality Measures Admission Status Admission Dx 1. Recurrent Herpes Zoster of face--admit for IV zovirax and pain control 2. Postherpetic neuralgia--restart home meds 3. Hypertension--monitor BP without meds as patient has not been taking propranolol DVT/VTE Risk/Contraindication: Risk Factor Score Per Nursin RFS Level Per Nursing on Admit: 2=Moderate ABELARDO CASE DO July 06, 2017 9:47 pm
[2017-07-07 00:33] VITALS: BP 134/67
[2017-07-07] MEDS: fentaNYL INJECTION 100 MCG/2 ML AMP IV PRN ×4 (01:16→19:35)
[2017-07-07] MEDS: HYDROcodone/APAP 5 MG/325 MG (LORTAB) TAB PO PRN ×3 (04:07→22:58)
[2017-07-07 04:20] VITALS: BP 119/58
[2017-07-07] MEDS: ACYCLOVIR 800 MG/NS 250 ML IVPB IV SCH ×6 (06:36→22:52)
[2017-07-07] MEDS: CATHETER FLUSH 10 ML SYR IV SCH ×3 (06:38→22:52)
[2017-07-07 08:00] VITALS: BP 138/80
[2017-07-07] MEDS: VITAMIN D3 5,000 UNITS (CHOLECALCIFEROL ) CAPSULE PO SCH (09:12)
[2017-07-07] MEDS: DULoxetine 30 MG (CYMBALTA) CAP PO SCH (09:12)
[2017-07-07] MEDS: MICONAZOLE 2% POWDER (DESENEX AF) 90 GM TOP SCH ×2 (09:13→22:52)
--- NOTE | 2017-07-07 09:41 | Anesthesia-General Post-Op ---
General Patient Condition Mental Status/LOC: Same as Preop Cardiovascular: Satisfactory Nausea/Vomiting: Absent Respiratory: Satisfactory Pain: Controlled Complications: Absent Post Op Complications Complications None Follow Up Care/Instructions Patient Instructions None needed. Anesthesia/Patient Condition Patient Condition Patient is doing well, no complaints, stable vital signs, no apparent adverse anesthesia problems. No complications reported per nursing. LORENE SANTIAGO CRNA July 07, 2017 09:41
[2017-07-07 12:00] VITALS: BP 141/81
--- NOTE | 2017-07-07 12:27 | Progress Note-Hospitalist ---
Subjective HPI/CC On Admission Date Seen by Provider: July 07, 2017 Time Seen by Provider: 11:10 Subjective/Events-last exam Patient complains primarily of pain in the left anterior shoulder. SHe is uncertain whether that is from when they started to do the PICC line although that approach was more distal on her left arm. Or from her posturing. Otherwise she would like to get up and walk in the [place]. The vesicles on her face are almost dried up. There is minimal swelling of the right side of her face. No new lesions have appeared. Review of Systems Musculoskeletal: shoulder pain Objective Exam Vital Signs Vital Signs Date Time Temp Pulse Resp B/P (MAP) Pulse Ox O2 Delivery O2 Flow Rate FiO2 07/07/17 19:57 98.4 80 18 140/76 (97) 98 Room Air Capillary Refill : Less Than 3 Seconds General Appearance: WD/WN HEENT: Other Neck: Other (Head and neck dissection no adenopathy) Respiratory: Chest Non Tender, Lungs Clear, Normal Breath Sounds, No Accessory Muscle Use, No Respiratory Distress Cardiovascular: Regular Rate, Rhythm, No Gallop, No Murmur Gastrointestinal: Normal Bowel Sounds, Non Tender, Soft Rectal: Deferred Back: Normal Inspection Extremity: Normal Capillary Refill, Normal Inspection Neurologic/Psychiatric: Alert, Oriented x3, No Motor/Sensory Deficits, Normal Mood/Affect Skin: Normal Color, Rash (Resolving vesicular rash on the upper lip no other lesions) Lymphatic: No Adenopathy Results/Procedures Lab Patient resulted labs reviewed. Assessment/Plan Assessment and Plan Assess & Plan/Chief Complaint 1. Recurrent varicella-zoster in a patient with history of head and neck dissection secondary to melanoma currently improvement of the vesicles. 2. History of melanoma the head and neck no evidence of disease 3. Anterior deltoid bursitis-may require an injection 4. History of hypertension Clinical Quality Measures DVT/VTE Risk/Contraindication: Risk Factor Score Per Nursin RFS Level Per Nursing on Admit: 2=Moderate TYSON MELENDEZ MD July 07, 2017 12:27
[2017-07-07 16:02] VITALS: BP 146/83
[2017-07-07] MEDS: POLYETHYLENE GLYCOL 17 GM (MIRALAX) PACK PO SCH (19:55)
[2017-07-07 19:57] VITALS: BP 140/76
[2017-07-07] MEDS: carBAMazepine 200 MG (TEGretol) TAB PO SCH (22:51)
[2017-07-07] MEDS: ZOLPIDEM 5 MG (AMBIEN) TAB PO SCH (22:51)
[2017-07-08] MEDS: MELATONIN 3 MG TABLET PO PRN ×2 (00:07→23:36)
[2017-07-08] MEDS: fentaNYL INJECTION 100 MCG/2 ML AMP IV PRN ×3 (00:14→23:36)
[2017-07-08 00:58] VITALS: BP 147/73
[2017-07-08 04:42] VITALS: BP 121/64
[2017-07-08] MEDS: CATHETER FLUSH 10 ML SYR IV SCH ×3 (06:20→22:26)
[2017-07-08] MEDS: ACYCLOVIR 800 MG/NS 250 ML IVPB IV SCH ×6 (06:20→22:21)
[2017-07-08 07:55] VITALS: BP 123/79
[2017-07-08] MEDS: DULoxetine 30 MG (CYMBALTA) CAP PO SCH (09:37)
[2017-07-08] MEDS: HYDROcodone/APAP 5 MG/325 MG (LORTAB) TAB PO PRN ×3 (09:37→22:20)
[2017-07-08] MEDS: VITAMIN D3 5,000 UNITS (CHOLECALCIFEROL ) CAPSULE PO SCH (09:37)
[2017-07-08] MEDS: MICONAZOLE 2% POWDER (DESENEX AF) 90 GM TOP SCH ×2 (09:38→22:21)
--- NOTE | 2017-07-08 13:39 | Progress Note-Hospitalist ---
Subjective HPI/CC On Admission Date Seen by Provider: July 08, 2017 Time Seen by Provider: 13:00 Subjective/Events-last exam complains of more burning and irritation in the shingles area. In addition her left shoulder and left arm are painful especially if it hangs down. She notes that she's having increased swelling where the port was placed. She has been ambulating some. Review of Systems Musculoskeletal: arm pain Objective Exam Vital Signs Vital Signs Date Time Temp Pulse Resp B/P (MAP) Pulse Ox O2 Delivery O2 Flow Rate FiO2 07/08/17 09:00 Room Air 07/08/17 07:55 98.7 79 18 123/79 (94) 97 Capillary Refill : Less Than 3 Seconds General Appearance: No Apparent Distress, WD/WN HEENT: Other (Increased erythema and swelling and vesicles above the lip) Neck: Other (Postsurgical changes on the right) Respiratory: Chest Non Tender, Lungs Clear, Normal Breath Sounds, No Accessory Muscle Use, No Respiratory Distress Cardiovascular: Regular Rate, Rhythm, No Gallop, No Murmur Gastrointestinal: Non Tender, Soft Extremity: Other (Some edema of the left arm and swelling over the left shoulder with fair range of motion) Neurologic/Psychiatric: Alert, Oriented x3, No Motor/Sensory Deficits Results/Procedures Lab Patient resulted labs reviewed. Assessment/Plan Assessment and Plan Assess & Plan/Chief Complaint 1. Recurrent varicella-zoster in a patient with history of head and neck dissection secondary to melanoma currently having worsening of the vesicles. 2. History of melanoma the head and neck no evidence of disease 3. Anterior deltoid bursitis-may require an injection, if there is more swelling in this area consideration may have to be given to a sonogram to evaluate for subclavian vein thrombosis-we'll begin ice packs as well 4. History of hypertension 5. We'll begin DVT prophylaxis with Lovenox Clinical Quality Measures DVT/VTE Risk/Contraindication: Risk Factor Score Per Nursin RFS Level Per Nursing on Admit: 2=Moderate TYSON MELENDEZ MD July 08, 2017 1:39 pm
[2017-07-08] MEDS: ENOXAPARIN 40 MG/0.4 ML (LOVENOX) SYR SC SCH (14:01)
[2017-07-08 16:00] VITALS: BP 142/84
[2017-07-08] MEDS: ZOLPIDEM 5 MG (AMBIEN) TAB PO SCH (22:20)
[2017-07-08] MEDS: carBAMazepine 200 MG (TEGretol) TAB PO SCH (22:20)
[2017-07-08] MEDS: POLYETHYLENE GLYCOL 17 GM (MIRALAX) PACK PO SCH (22:21)
[2017-07-09 00:49] VITALS: BP 123/65
[2017-07-09] MEDS: ACYCLOVIR 800 MG/NS 250 ML IVPB IV SCH ×6 (06:36→22:52)
[2017-07-09] MEDS: CATHETER FLUSH 10 ML SYR IV SCH ×3 (07:58→22:52)
[2017-07-09 07:59] VITALS: BP 136/66
[2017-07-09] MEDS: DULoxetine 30 MG (CYMBALTA) CAP PO SCH (09:54)
[2017-07-09] MEDS: VITAMIN D3 5,000 UNITS (CHOLECALCIFEROL ) CAPSULE PO SCH (09:54)
[2017-07-09] MEDS: HYDROcodone/APAP 5 MG/325 MG (LORTAB) TAB PO PRN ×2 (09:55→17:52)
[2017-07-09] MEDS: MICONAZOLE 2% POWDER (DESENEX AF) 90 GM TOP SCH ×2 (09:55→22:52)
[2017-07-09] MEDS: fentaNYL INJECTION 100 MCG/2 ML AMP IV PRN ×3 (11:49→20:53)
[2017-07-09] MEDS: ENOXAPARIN 40 MG/0.4 ML (LOVENOX) SYR SC SCH (15:10)
[2017-07-09 16:00] VITALS: BP 133/79
--- NOTE | 2017-07-09 16:44 | Progress Note-Standard ---
Standard Progress Note Progress Notes/Assess & Plan Date Seen by Provider: July 09, 2017 Time Seen by Provider: 16:00 Progress/Assessment & Plan 46-year-old female admitted with a flareup of herpes zoster involving the right side of face. Patient has history of melanoma and has undergone right radical neck dissection as well as supraclavicular lymph node dissection followed by radiation therapy in the past. Significant postherpetic neuralgia and admitted for IV acyclovir as well as pain control. Because of poor venous access, patient was on oral acyclovir before the central venous port could be inserted. Patient complained of flare up of her particular lesions during this time but this is getting better now. She continues to have tingling and pain in the right side of the face and ears. I will increase the carbamazepine to twice daily and also add gabapentin 300 mg twice a day. Continue IV acyclovir and pain control as you are doing. MARYSE VIVAS July 09, 2017 16:44
--- NOTE | 2017-07-09 18:04 | Progress Note (SOAP) ---
Subjective Date Seen by Provider: July 09, 2017 Time Seen by Provider: 12:30 Subjective/Events-last exam Fwup recurrent facial shingles, postherpetic neuropathy, poor IV access. Port site not as tender. Lip lesion drying up and not as much facial pain. Objective Exam Vital Signs Date Time Temp Pulse Resp B/P (MAP) Pulse Ox O2 Delivery O2 Flow Rate FiO2 07/09/17 16:00 97.7 92 18 133/79 (97) 98 Room Air 07/09/17 09:00 Room Air 07/09/17 07:59 97.7 78 18 136/66 (89) 96 Room Air 07/09/17 00:49 97.9 92 16 123/65 (84) 98 Room Air 07/08/17 20:10 Room Air I & O 07/09/17 07:00 Intake Total 2320 ml Balance 2320 ml Capillary Refill : Less Than 3 Seconds General Appearance: No Apparent Distress Neck: Supple Neurologic/Psychiatric: Alert, Oriented x3 Skin: Other (left upper lip lesion crusting/healing) Results Lab Microbiology 07/03/17 Blood Culture - Final, Complete No growth 07/06/17 MRSA Screen - Final, Complete MRSA not isolated Assessment/Plan Assessment/Plan Assess & Plan/Chief Complaint 1. Recurrent herpes zoster of face--continue IV zovirax--will need IV Zovirax until facial lesions healing well as patient has a history of recurrence if quits IV antivirals too quickly 2. Postherpetic Neuralgia--pain improved 3. Poor IV access--port site healing well Clinical Quality Measures Admission Status Admission Dx 1. Recurrent Herpes Zoster of face--admit for IV zovirax and pain control 2. Postherpetic neuralgia--restart home meds 3. Hypertension--monitor BP without meds as patient has not been taking propranolol DVT/VTE Risk/Contraindication: Risk Factor Score Per Nursin RFS Level Per Nursing on Admit: 2=Moderate ABELARDO CASE DO July 09, 2017 6:04 pm
[2017-07-09] MEDS: carBAMazepine 200 MG (TEGretol) TAB PO SCH (22:48)
[2017-07-09] MEDS: GABAPENTIN 300 MG (NEURONTIN) CAP PO SCH (22:48)
[2017-07-09] MEDS: ZOLPIDEM 5 MG (AMBIEN) TAB PO SCH (22:49)
[2017-07-09] MEDS: POLYETHYLENE GLYCOL 17 GM (MIRALAX) PACK PO SCH (22:52)
[2017-07-10] MEDS: MELATONIN 3 MG TABLET PO PRN (00:17)
[2017-07-10 00:20] VITALS: BP 137/72
[2017-07-10] MEDS: fentaNYL INJECTION 100 MCG/2 ML AMP IV PRN ×5 (00:25→21:28)
[2017-07-10 00:36] VITALS: BP 151/68
[2017-07-10] MEDS: ACYCLOVIR 800 MG/NS 250 ML IVPB IV SCH ×6 (05:51→21:26)
[2017-07-10] MEDS: CATHETER FLUSH 10 ML SYR IV SCH ×3 (05:52→21:26)
[2017-07-10 08:30] VITALS: BP 115/78
[2017-07-10] MEDS: DULoxetine 30 MG (CYMBALTA) CAP PO SCH (09:01)
[2017-07-10] MEDS: carBAMazepine 200 MG (TEGretol) TAB PO SCH ×2 (09:02→21:27)
[2017-07-10] MEDS: VITAMIN D3 5,000 UNITS (CHOLECALCIFEROL ) CAPSULE PO SCH (09:02)
[2017-07-10] MEDS: GABAPENTIN 300 MG (NEURONTIN) CAP PO SCH ×2 (09:02→21:26)
[2017-07-10] MEDS: MICONAZOLE 2% POWDER (DESENEX AF) 90 GM TOP SCH ×2 (09:02→21:26)
[2017-07-10 10:45] VITALS: BP 134/78
[2017-07-10] MEDS ORDERED: ONDANSETRON 4 MG/2 ML (SDV) Z0FRAN IVP NR (13:00)
[2017-07-10] MEDS ORDERED: KETOROLAC 30 MG/ML VIAL IVP NR (13:00)
[2017-07-10] MEDS ORDERED: SCOPOLAMINE 1.5 MG (TRANSDERM-SCOP) PATCH TD NR (13:00)
[2017-07-10] MEDS ORDERED: PROPRANOLOL 20 MG (INDERAL) TABLET PO NR (13:00)
[2017-07-10] MEDS: HYDROcodone/APAP 5 MG/325 MG (LORTAB) TAB PO PRN (13:54)
[2017-07-10] MEDS: ENOXAPARIN 40 MG/0.4 ML (LOVENOX) SYR SC SCH (13:54)
[2017-07-10 16:45] VITALS: BP 114/59
--- NOTE | 2017-07-10 18:14 | Progress Note (SOAP) ---
Subjective Date Seen by Provider: July 10, 2017 Time Seen by Provider: 12:35 Subjective/Events-last exam Fwup recurrent facial shingles, postherpetic neuropathy, poor IV access. C/O dizziness, TIDWELL. Objective Exam Vital Signs Date Time Temp Pulse Resp B/P (MAP) Pulse Ox O2 Delivery O2 Flow Rate FiO2 07/10/17 16:45 98.7 76 20 114/59 (77) 97 Room Air 07/10/17 10:45 97.5 81 20 134/78 (96) 95 Room Air 07/10/17 08:30 97.0 88 18 115/78 (90) 95 Room Air 07/10/17 00:36 97.3 86 18 151/68 (95) 99 Room Air I & O 07/10/17 07:00 Intake Total 3462 ml Balance 3462 ml Capillary Refill : Less Than 3 Seconds General Appearance: Mild Distress Respiratory: Lungs Clear Cardiovascular: Regular Rate, Rhythm Extremity: Non Tender, No Calf Tenderness, No Pedal Edema Neurologic/Psychiatric: Alert Skin: Other (left upper lip lesion scabbed) Results Lab Microbiology 07/03/17 Blood Culture - Final, Complete No growth 07/06/17 MRSA Screen - Final, Complete MRSA not isolated Assessment/Plan Assessment/Plan Assess & Plan/Chief Complaint 1. Recurrent herpes zoster of face--continue IV zovirax--will need IV Zovirax until facial lesions healing well as patient has a history of recurrence if quits IV antivirals too quickly 2. Postherpetic Neuralgia--pain improved 3. Poor IV access--port site healing well 4. Cephalgia with dizziness--likely migraine variant--tegretol dose increased to BID, toradol with zofran now and start scopolamine patch Clinical Quality Measures Admission Status Admission Dx 1. Recurrent Herpes Zoster of face--admit for IV zovirax and pain control 2. Postherpetic neuralgia--restart home meds 3. Hypertension--monitor BP without meds as patient has not been taking propranolol DVT/VTE Risk/Contraindication: Risk Factor Score Per Nursin RFS Level Per Nursing on Admit: 2=Moderate ABELARDO CASE DO July 10, 2017 6:14 pm
[2017-07-10] MEDS: POLYETHYLENE GLYCOL 17 GM (MIRALAX) PACK PO SCH (21:27)
[2017-07-10] MEDS: ZOLPIDEM 5 MG (AMBIEN) TAB PO SCH (21:27)
[2017-07-11] VITALS: BP 133/81
[2017-07-11] MEDS: fentaNYL INJECTION 100 MCG/2 ML AMP IV PRN ×6 (00:26→23:55)
[2017-07-11] MEDS: HYDROcodone/APAP 5 MG/325 MG (LORTAB) TAB PO PRN ×2 (02:46→11:19)
[2017-07-11] MEDS: ACYCLOVIR 800 MG/NS 250 ML IVPB IV SCH ×6 (05:55→21:14)
[2017-07-11] MEDS: CATHETER FLUSH 10 ML SYR IV SCH ×3 (05:56→21:15)
[2017-07-11 08:49] VITALS: BP 125/79
[2017-07-11] MEDS: GABAPENTIN 300 MG (NEURONTIN) CAP PO SCH ×2 (09:22→21:14)
[2017-07-11] MEDS: VITAMIN D3 5,000 UNITS (CHOLECALCIFEROL ) CAPSULE PO SCH (09:22)
[2017-07-11] MEDS: DULoxetine 30 MG (CYMBALTA) CAP PO SCH (09:23)
[2017-07-11] MEDS: carBAMazepine 200 MG (TEGretol) TAB PO SCH ×2 (09:23→21:14)
[2017-07-11] MEDS: MICONAZOLE 2% POWDER (DESENEX AF) 90 GM TOP SCH ×2 (09:24→21:14)
[2017-07-11] MEDS: ONDANSETRON 4 MG/2 ML (SDV) Z0FRAN IVP PRN ×2 (11:18→16:28)
[2017-07-11] MEDS: POLYETHYLENE GLYCOL 17 GM (MIRALAX) PACK PO SCH (11:19)
[2017-07-11 11:45] VITALS: BP 148/90
[2017-07-11] MEDS ORDERED: PROPRANOLOL 20 MG (INDERAL) TABLET PO NR (13:15)
[2017-07-11] MEDS ORDERED: KETOROLAC 30 MG/ML VIAL IVP NR (13:15)
[2017-07-11] MEDS: MECLIZINE 25 MG (ANTIVERT) TAB PO PRN ×2 (13:48→19:46)
[2017-07-11] MEDS: ENOXAPARIN 40 MG/0.4 ML (LOVENOX) SYR SC SCH (14:30)
--- NOTE | 2017-07-11 14:34 | Progress Note-Standard ---
Standard Progress Note Progress Notes/Assess & Plan Date Seen by Provider: July 11, 2017 Time Seen by Provider: 14:30 Progress/Assessment & Plan 46-year-old female admitted with a flareup of herpes zoster involving the right side of face. Patient has history of melanoma and has undergone right radical neck dissection as well as supraclavicular lymph node dissection followed by radiation therapy in the past. Significant postherpetic neuralgia and admitted for IV acyclovir as well as pain control. Because of poor venous access, patient had a port placed. Past 3 days she is complaining of dizziness and ringing in her ears. She continues to have tingling and pain in the right side of the face and ears which is better with the carbamazepine add gabapentin. Continue IV acyclovir and pain control as you are doing. Medications being adjusted because of the dizziness. If this continues long-term, I would consider an MRI of the brain. Will follow patient with you. MARYSE VIVAS July 11, 2017 14:34
[2017-07-11 16:55] VITALS: BP 145/85
--- NOTE | 2017-07-11 17:37 | Progress Note (SOAP) ---
Subjective Date Seen by Provider: July 11, 2017 Time Seen by Provider: 12:40 Subjective/Events-last exam Fwup recurrent facial shingles, postherpetic neuropathy, poor IV access. C/O ongoing dizziness, TIDWELL. Objective Exam Vital Signs Date Time Temp Pulse Resp B/P (MAP) Pulse Ox O2 Delivery O2 Flow Rate FiO2 07/11/17 11:45 98.1 76 24 148/90 (109) 99 Room Air 07/11/17 09:00 Room Air 07/11/17 08:49 98.1 76 18 125/79 (94) 96 Room Air 07/11/17 00:00 97.8 74 16 133/81 (98) 98 Room Air I & O 07/11/17 07:00 Intake Total 2436 ml Balance 2436 ml Capillary Refill : Less Than 3 Seconds General Appearance: Mild Distress Respiratory: Lungs Clear Cardiovascular: Regular Rate, Rhythm Neurologic/Psychiatric: Alert, Oriented x3 Skin: Other (left upper lip lesion healing) Results Lab Microbiology 07/03/17 Blood Culture - Final, Complete No growth 07/06/17 MRSA Screen - Final, Complete MRSA not isolated Assessment/Plan Assessment/Plan Assess & Plan/Chief Complaint 1. Recurrent herpes zoster of face--continue IV zovirax--will need IV Zovirax until facial lesions healing well as patient has a history of recurrence if quits IV antivirals too quickly 2. Postherpetic Neuralgia--pain improved 3. Poor IV access--port site healing well 4. Cephalgia with vertigo/dizziness--likely migraine variant--tegretol dose increased to BID, repat toradol with zofran now and add propranolol and mecilizine Clinical Quality Measures Admission Status Admission Dx 1. Recurrent Herpes Zoster of face--admit for IV zovirax and pain control 2. Postherpetic neuralgia--restart home meds 3. Hypertension--monitor BP without meds as patient has not been taking propranolol DVT/VTE Risk/Contraindication: Risk Factor Score Per Nursin RFS Level Per Nursing on Admit: 2=Moderate ABELARDO CASE DO July 11, 2017 17:37
[2017-07-11] MEDS: KETOROLAC 30 MG/ML VIAL IVP PRN (19:46)
[2017-07-11] MEDS: ZOLPIDEM 5 MG (AMBIEN) TAB PO SCH (21:14)
[2017-07-11] MEDS: MELATONIN 3 MG TABLET PO PRN (23:55)
[2017-07-12 00:36] VITALS: BP 137/82
[2017-07-12] MEDS: ACYCLOVIR 800 MG/NS 250 ML IVPB IV SCH ×6 (06:03→21:39)
[2017-07-12] MEDS: PROPRANOLOL 20 MG (INDERAL) TABLET PO SCH (06:03)
[2017-07-12] MEDS: CATHETER FLUSH 10 ML SYR IV SCH ×3 (06:03→21:39)
[2017-07-12 08:00] VITALS: BP 127/64
--- NOTE | 2017-07-12 08:20 | Progress Note ---
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 Review of Systems General: Fatigue HEENT: No Head Aches Pulmonary: No Dyspnea, No Cough Cardiovascular: No: Chest Pain Gastrointestinal: No: Nausea, Abdominal Pain Genitourinary: No Dysuria, No Frequency Musculoskeletal: No: back pain Neurological: No: Confusion Objective Exam Last Set of Vital Signs Vital Signs Date Time Temp Pulse Resp B/P (MAP) Pulse Ox O2 Delivery O2 Flow Rate FiO2 07/12/17 08:00 97.9 74 20 127/64 (85) 97 Room Air Capillary Refill : Less Than 3 Seconds I&O Intake and Output 07/12/17 00:00 Intake Total 3262 ml Balance 3262 ml Intake Oral 2730 ml IV Total 532 ml # Voids 10 General: Alert, Oriented X3, Cooperative, No Acute Distress HEENT: PERRLA Neck: Supple Lungs: Clear to Auscultation Heart: Regular Rate Abdomen: Normal Bowel Sounds, Soft Skin: Other (LESION ON LEFT UPPER LIP) Psych/Mental Status: Mental Status NL, Mood NL Results Lab Microbiology 07/03/17 Blood Culture - Final, Complete No growth 07/06/17 MRSA Screen - Final, Complete MRSA not isolated Assessment/Plan Assessment/Plan Assess & Plan/Chief Complaint RECURRENT HERPES ZOSTER - ON FACE VERTIGO POST-HERPETIC NEURALGIA RECENT PORT PLACEMENT FOR POOR IV ACCESS RECURRENT HERPES ZOSTER - ON FACE - ON ZOVIRAX IV - PER PRIMARY CARE - CONTINUE WITH IV ZOVIRAX UNTIL FACIAL LESIONS START TO HEAL SHE HAS RAPID RECURRENCE OF ZOSTER IF IV ANTIVIRALS ARE STOPPED TO QUICKLY. VERTIGO - SUPPORTIVE CARE, PT IS ON TEGRETOL - CONTINUE WITH THIS MEDICATION AND MONITOR SYMPTOMS. POST-HERPETIC NEURALGIA - PAIN CONTROL RECENT PORT PLACEMENT FOR POOR IV ACCESS Clinical Quality Measures DVT/VTE Risk/Contraindication: Risk Factor Score Per Nursin RFS Level Per Nursing on Admit: 2=Moderate ROEL JACQUES MD July 12, 2017 08:19
[2017-07-12] MEDS: MICONAZOLE 2% POWDER (DESENEX AF) 90 GM TOP SCH ×2 (08:47→21:00)
[2017-07-12] MEDS: carBAMazepine 200 MG (TEGretol) TAB PO SCH ×2 (08:55→20:59)
[2017-07-12] MEDS: GABAPENTIN 300 MG (NEURONTIN) CAP PO SCH ×2 (08:55→20:59)
[2017-07-12] MEDS: VITAMIN D3 5,000 UNITS (CHOLECALCIFEROL ) CAPSULE PO SCH (08:55)
[2017-07-12] MEDS: DULoxetine 30 MG (CYMBALTA) CAP PO SCH (08:55)
[2017-07-12] MEDS: KETOROLAC 30 MG/ML VIAL IVP PRN ×3 (08:55→20:59)
[2017-07-12] MEDS: MECLIZINE 25 MG (ANTIVERT) TAB PO PRN (08:55)
[2017-07-12] MEDS: ONDANSETRON 4 MG/2 ML (SDV) Z0FRAN IVP PRN ×2 (11:41→20:59)
[2017-07-12] MEDS: fentaNYL INJECTION 100 MCG/2 ML AMP IV PRN (11:42)
[2017-07-12 12:00] VITALS: BP 150/71
[2017-07-12] MEDS: ENOXAPARIN 40 MG/0.4 ML (LOVENOX) SYR SC SCH (13:49)
[2017-07-12 16:24] VITALS: BP 128/78
[2017-07-12] MEDS: PANTOPRAZOLE 40 MG (PROTONIX) TAB PO SCH (16:58)
--- NOTE | 2017-07-12 17:14 | Progress Note-Standard ---
Standard Progress Note Progress Notes/Assess & Plan Date Seen by Provider: July 12, 2017 Time Seen by Provider: 17:10 Progress/Assessment & Plan 46-year-old female admitted with a flareup of herpes zoster involving the right side of face. Patient has history of melanoma and has undergone right radical neck dissection as well as supraclavicular lymph node dissection followed by radiation therapy in the past. Significant postherpetic neuralgia and admitted for IV acyclovir as well as pain control. Because of poor venous access, patient had a port placed. Dizziness and ringing in ears still present but stable. She ambulated in hallway 2-3 times but had flareup of dizziness. The tingling and pain in the right side of the face and ears is improving. Continue IV acyclovir and pain control as you are doing. She also complained of increased heartburn like symptoms. I will start her on proton pump inhibitor today. I advised her to continue ambulating as tolerated and if her symptoms are improving, consider discharge home. If the dizziness is not improving or worsening, we would initiate a workup for this. Dr. Burton covering for this weekend. MARYSE VIVAS July 12, 2017 17:14
[2017-07-12] MEDS: ZOLPIDEM 5 MG (AMBIEN) TAB PO SCH (20:59)
[2017-07-12] MEDS: POLYETHYLENE GLYCOL 17 GM (MIRALAX) PACK PO SCH (21:00)
[2017-07-13 00:40] VITALS: BP 126/68
[2017-07-13] MEDS: CATHETER FLUSH 10 ML SYR IV SCH (05:27)
[2017-07-13] MEDS: ACYCLOVIR 800 MG/NS 250 ML IVPB IV SCH ×2 (05:27)
[2017-07-13] MEDS: PROPRANOLOL 20 MG (INDERAL) TABLET PO SCH (06:34)
[2017-07-13] MEDS: PANTOPRAZOLE 40 MG (PROTONIX) TAB PO SCH (06:34)
--- NOTE | 2017-07-13 07:05 | Discharge Summary ---
Diagnosis/Chief Complaint Date of Admission July 03, 2017 at 19:24 Date of Discharge Discharge Date: July 13, 2017 Discharge Time: 09:00 Admission Diagnosis Admission Diagnosis RECURRENT HERPES ZOSTER - ON FACE VERTIGO POST-HERPETIC NEURALGIA RECENT PORT PLACEMENT FOR POOR IV ACCESS Discharge Diagnosis RECURRENT HERPES ZOSTER - ON FACE VERTIGO POST-HERPETIC NEURALGIA RECENT PORT PLACEMENT FOR POOR IV ACCESS Reason Hospital Visit This is a 46 year old female with a history of recurrent shingles to her right face and chronic postherpetic neuralgia. She recently had increased pain to the right side of her face and noticed blisters just above her lip on the left side. She generally takes zovirax daily as a prophylactic so Valtrex was called out. However, due to the worsening pain she presented to the emergency room and will be admitted for IV antivirals and pain control. Discharge Summary Consultations dr. rodriguez Discharge Physical Examination Allergies: Coded Allergies: promethazine (Verified Allergy, Unknown, 04/13/16) vancomycin (Verified Allergy, Unknown, RASH, 09/13/16) reacted to iv vancomycin in [facility] on 01/21 Vitals & I&Os Vital Signs Date Time Temp Pulse Resp B/P (MAP) Pulse Ox O2 Delivery O2 Flow Rate FiO2 07/13/17 00:40 98.4 88 18 126/68 (87) 98 Room Air General Appearance: Alert, Oriented X3, Cooperative HEENT: Atraumatic, PERRLA Respiratory: Clear to Auscultation Cardiovascular: Regular Rate Abdominal: Normal Bowel Sounds, Soft, No Tenderness Extremities: No Clubbing, No Cyanosis Skin: Other (healing zoster rash on face/upper lip) Neuro: Normal Speech, Strength at 5/5 X4 Ext, Cranial Nerves 3-12 NL Psych/Mental Status: Mental Status NL, Mood NL Hospital Course RECURRENT HERPES ZOSTER - ON FACE VERTIGO POST-HERPETIC NEURALGIA RECENT PORT PLACEMENT FOR POOR IV ACCESS RECURRENT HERPES ZOSTER - ON FACE - ON ZOVIRAX IV - PER PRIMARY CARE - CONTINUE WITH IV ZOVIRAX UNTIL FACIAL LESIONS START TO HEAL SHE HAS RAPID RECURRENCE OF ZOSTER IF IV ANTIVIRALS ARE STOPPED TO QUICKLY. VERTIGO - SUPPORTIVE CARE, PT IS ON TEGRETOL - CONTINUE WITH THIS MEDICATION AND MONITOR SYMPTOMS. - cawthorne-sagrario exercises given to patient for home use. POST-HERPETIC NEURALGIA - PAIN CONTROL RECENT PORT PLACEMENT FOR POOR IV ACCESS planning on discharge to home today - will continue with oral acyclovir for another 5 days. Discharge Condition at discharge improving Instructions to patient/family Please see electronic discharge instructions given to patient. Discharge Medications Reviewed and agree with Discharge Medication list on patient's Discharge Instruction sheet Clinical Quality Measures DVT/VTE Risk/Contraindication: Risk Factor Score Per Nursin RFS Level Per Nursing on Admit: 2=Moderate ROEL JACQUES MD July 13, 2017 07:05
[2017-07-13] MEDS ORDERED: VALA1000 PO (07:09)
[2017-07-13] MEDS ORDERED: ACYC200C PO (07:09)
[2017-07-13 08:00] VITALS: BP 120/78
[2017-07-13] MEDS: HYDROcodone/APAP 5 MG/325 MG (LORTAB) TAB PO PRN (08:33)
[2017-07-13] MEDS: DULoxetine 30 MG (CYMBALTA) CAP PO SCH (08:33)
[2017-07-13] MEDS: fentaNYL INJECTION 100 MCG/2 ML AMP IV PRN (08:33)
[2017-07-13] MEDS: GABAPENTIN 300 MG (NEURONTIN) CAP PO SCH (08:33)
[2017-07-13] MEDS: carBAMazepine 200 MG (TEGretol) TAB PO SCH (08:33)
[2017-07-13 09:00] VITALS: BP 120/78
== END 2017-07-13 09:00 | disposition home or self-care (01) | DRG 581 ==
LOC: EDUNIT# 16:25 → ER 16:26 → 4TH 19:24
PROVIDERS: ADMIT Family Medicine; ATTEND Family Medicine
PROC: 0JH60XZ Insertion of Tunneled Vascular Access Device into Chest Subcutaneous Tissue and Fascia, Open Approach (ICD-10-PCS; 2017-07-06)
PROC: 02H633Z Insertion of Infusion Device into Right Atrium, Percutaneous Approach (ICD-10-PCS; principal; 2017-07-06 09:48)
DX: B02.9 Zoster without complications (principal); B02.22 Postherpetic trigeminal neuralgia; I10 Essential (primary) hypertension; G43.909 Migraine, unspecified, not intractable, without status migrainosus; K21.9 Gastro-esophageal reflux disease without esophagitis; K58.9 Irritable bowel syndrome, unspecified; K44.9 Diaphragmatic hernia without obstruction or gangrene; M54.10 Radiculopathy, site unspecified; M79.7 Fibromyalgia; F41.9 Anxiety disorder, unspecified; F32.9 Major depressive disorder, single episode, unspecified; R13.10 Dysphagia, unspecified; M75.52 Bursitis of left shoulder; Z92.21 Personal history of antineoplastic chemotherapy; Z92.3 Personal history of irradiation; Z85.820 Personal history of malignant melanoma of skin
CPT/HCPCS: 36415; 71045; 80053; 80156; 83605; 85025; 86141; 87040; 87081; 96365; 96375

== ENCOUNTER 2017-08-02 12:55 | Outpatient (RCR) | payer BC ==
[~2017-08-02 12:55] MED LIST changes: +CARB-88 PO; +ESZO2TAB31 PO; +MELA10TA2 PO; +PROP60TA17 PO; +VALA1000 PO
[2017-08-02 13:15] LABS: BASOPHILS % (AUTO) 0 % (0-10); EOSINOPHILS # (AUTO) 0.3 10^3/uL (0.0-0.3); EOSINOPHILS % (AUTO) 5 % (0-10); HEMATOCRIT 38 % (35-52); HEMOGLOBIN 13.5 G/DL (11.5-16.0); LYMPHOCYTES # (AUTO) 1.6 X 10^3 (1.0-4.0); LYMPHOCYTES % (AUTO) 28 % (12-44); MEAN CORPUSCULAR HEMOGLOBIN 33 PG (25-34); MEAN CORPUSCULAR HGB CONC 35 G/DL (32-36); MEAN CORPUSCULAR VOLUME 92 FL (80-99); MEAN PLATELET VOLUME 8.5 FL (7.4-10.4); MONOCYTES # (AUTO) 0.4 X 10^3 (0.0-1.0); MONOCYTES % (AUTO) 7 % (0-12); NEUTROPHILS # (AUTO) 3.6 X 10^3 (1.8-7.8); NEUTROPHILS % (AUTO) 61 % (42-75); PLATELET COUNT 278 10^3/uL (130-400); RED BLOOD COUNT 4.15 10^6/uL (4.35-5.85); RED CELL DISTRIBUTION WIDTH 13.3 % (10.0-14.5); WHITE BLOOD COUNT 5.9 10^3/uL (4.3-11.0)
[2017-08-02 13:36] LABS: ALANINE AMINOTRANSFERASE 12 U/L (0-55); ALBUMIN 4.4 GM/DL (3.2-4.5); ALKALINE PHOSPHATASE 88 U/L (40-136); BILIRUBIN,TOTAL 0.5 MG/DL (0.1-1.0); BUN/CREATININE RATIO 16; CALCIUM 9.4 MG/DL (8.5-10.1); CARBON DIOXIDE 22 MMOL/L (21-32); CHLORIDE 105 MMOL/L (98-107); CREATININE SERUM 0.79 MG/DL (0.60-1.30); GFR ESTIMATED > 60; GLUCOSE 114 MG/DL (70-105); SODIUM 135 MMOL/L (135-145); TOTAL PROTEIN 7.4 GM/DL (6.4-8.2)
[2017-08-02 13:52] LABS: BILIRUBIN,URINE NEGATIVE (NEGATIVE); CLARITY,URINE CLEAR; COLOR,URINE YELLOW; GLUCOSE, URINE (UA) NEGATIVE (NEGATIVE); KETONES,URINE NEGATIVE (NEGATIVE); LEUKOCYTE ESTERASE ,URINE 2+ (NEGATIVE); NITRITE,URINE NEGATIVE (NEGATIVE); PH,URINE 5 (5-9); PROTEIN,URINE 2+ (NEGATIVE); UROBILINOGEN,URINE NORMAL (NORMAL)
[2017-08-02 14:04] LABS: BACTERIA,URINE FEW /HPF; WBC,URINE >100 /HPF
[2017-09-22] MEDS ORDERED: MECL-106 PO (08:35)
[2017-09-26] MEDS ORDERED: CHOL500049 PO (08:47)
[2017-09-28] MEDS ORDERED: ACYC800T7 PO (13:18)
== END 2017-10-31 | disposition home or self-care (01) ==
LOC: ONC 12:55
PROVIDERS: ATTEND Internal Medicine Hematology & Oncology
DX: Z08 Encounter for follow-up examination after completed treatment for malignant neoplasm (principal); Z85.820 Personal history of malignant melanoma of skin; E55.9 Vitamin D deficiency, unspecified; F17.210 Nicotine dependence, cigarettes, uncomplicated; B00.9 Herpesviral infection, unspecified; G62.9 Polyneuropathy, unspecified; R39.15 Urgency of urination; R30.0 Dysuria; Z79.899 Other long term (current) drug therapy
CPT/HCPCS: 36415; 36591; 80053; 81000; 82306; 83615; 85025; 87077; 87088; 87186

== ENCOUNTER 2017-09-21 22:57 | Inpatient (IN) | payer BC, MEDICARE ==
[~2017-09-21] VITALS: Ht 162.6 cm; Wt 94.4 kg
[~2017-09-21 22:57] MED LIST changes: +ESZO2TAB30 PO; -ESZO2TAB31 PO
[2017-09-21] MEDS ORDERED: ACYCLOVIR IV STA (23:19)
[2017-09-21] MEDS ORDERED: D5W IV STA (23:19)
--- NOTE | 2017-09-21 23:26 | ED Neurological Problem ---
General Chief Complaint: Facial Problems Stated Complaint: FACIAL INFECTION Source: patient, RN/MD (Dr. Rendon) Exam Limitations: no limitations History of Present Illness Date Seen by Provider: Sep 21, 2017 Time Seen by Provider: 23:06 Initial Comments Patient presents to the ER by private conveyance with her significant other and a chief complaint of a burning and tingling sensation that started tonight about 21:30 [place] 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 She has no blister on her face, nose, difficulty with vision, double vision, blurry vision or pain in her eye. The pain extends back to her right ear. She is on maintenance dose of 400 mg acyclovir twice a day and in addition to that she took 1 g of valacyclovir she had left over from a previous episode. She says she's had this zoster 18 times and has had a lot of difficulty with it requiring hospitalization 4 times for several days to get IV acyclovir. She thinks that this time because of the swelling and pain, on so fast within 20 minutes and was not improving with her single dose of valacyclovir that she would require IV acyclovir. She called her previous oncologist Dr. Rendon who saw her in the past for history of melanoma and he called ahead to the ER to give report. He recommends admission for IV acyclovir. The patient has not taken anything for the pain tonight. She says Toradol has worked well past. She says she does have a history of dizziness but she's not having any dizziness tonight. She's having no difficulty hearing. She has no discharge from the ear. Historically she has had a right neck radical dissection and radiation therapy. She is in remission. Allergies and Home Medications Allergies Coded Allergies: promethazine (Verified Allergy, Unknown, 04/13/16) vancomycin (Verified Allergy, Unknown, RASH, 09/13/16) reacted to iv vancomycin in cancer center on 01/21 Home Medications Acyclovir 200 Mg Capsule, 400 MG PO UD TAKES 2 (200MG) CAPSULES qid x 5 more days then resume bid dosing Prescribed by: ROEL JACQUES on 07/13/17 0709 Carbamazepine 200 Mg Tab.er.12h, 200 MG PO HS, (Reported) Cholecalciferol (Vitamin D3) 5,000 Unit Capsule, 5,000 UNIT PO DAILY, (Reported) Duloxetine HCl 60 Mg Capsule.dr, 60 MG PO DAILY, (Reported) Eszopiclone 2 Mg Tablet, 2 MG PO HS, (Reported) Melatonin 10 Mg Tablet, 10 MG PO HS PRN for SLEEP, (Reported) Propranolol HCl 60 Mg Tablet, 60 MG PO HS, (Reported) Valacyclovir HCl 1,000 Mg Tablet, 1,000 MG PO TID 14 DAY SUPPLY FILLED 07-02-17 (ACYCLOVIR ON HOLD WHILE SHE IS TAKING THIS) Prescribed by: ROEL JACQUES on 07/13/17 0709 Patient Home Medication List Home Medication List Reviewed: Yes Review of Systems Constitutional: No chills, No diaphoresis Eyes: Denies Blindness, Denies Blurred Vision Ears, Nose, Mouth, Throat: denies ear pain, denies ear discharge Respiratory: No cough, No dyspnea on exertion Cardiovascular: No chest pain, No palpitations Gastrointestinal: No abdominal pain, No constipation, No nausea Genitourinary: No discharge, No dysuria Musculoskeletal: No back pain, No joint pain Skin: see HPI; No pruritus, No rash Past Avgittv-Owjxuh-Rlyjcs Hx Patient Social History Alcohol Use: Denies Use Recreational Drug Use: No Smoking Status: Never a Smoker 2nd Hand Smoke Exposure: No Recent Foreign Travel: No Contact w/Someone Who Travel: No Recent Hopitalizations: No (09/13/16) Immunizations Up To Date Tetanus Booster (TDap): Unknown PED Vaccines UTD: Yes Seasonal Allergies Seasonal Allergies: No Past Medical History Surgeries: Yes Abdominal, Bladder Surgery, Section, Gallbladder, Hysterectomy Respiratory: No Currently Using CPAP: No Currently Using BIPAP: No Cardiac: Yes Neurological: Yes Headaches /Migraines Reproductive Disorders: Yes (Surgeries for Ovarian cysts) Female Reproductive Disorders: Endometriosis, Ovarian Cyst 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 Sexually Transmitted Disease: No HIV/AIDS: No Genitourinary: Yes UTI-Chronic Gastrointestinal: Yes Gastroesophageal Reflux, Esophagitis, Gall Bladder Disease, Irritable Bowel Musculoskeletal: No (radiculopathy) Fibromyalgia Endocrine: No HEENT: Yes (DRY MOUTH) Dysphagia Loss of Vision: Denies Hearing Impairment: Denies Cancer: Yes Melanoma Did You Recieve Any Treatments: Yes What Type of Treatment Did You: Chemotherapy, Radiation, Surgical Intervention Psychosocial: Yes Anxiety, Depression Integumentary: Yes (RECURRENT HZV TO RIGHT FACE) Recent Skin Changes Blood Disorders: No Adverse Reaction/Blood Tranf: No Family Medical History Arthritis 19 MOTHER G8 SISTER Cataracts 19 MOTHER Congenital heart disease 19 FATHER (HEART DZ) Diabetes mellitus 19 FATHER Hypertension 19 FATHER Myocardial infarction 19 FATHER Respiratory disorder 19 FATHER (EMPHYSEMA) Seizure disorder G8 BROTHER (CEBERAL PALSY ALOS) No Pertinent Family Hx Physical Exam Vital Signs Vital Signs - First Documented 09/21/17 23:06 Temp 97.7 Pulse 100 Resp 19 B/P (MAP) 139/109 (119) Pulse Ox 99 O2 Delivery Room Air Capillary Refill : Height, Weight, BMI Height: 5'4.00" Weight: 209lbs. 4.0oz. 94.189506yg; 35.0 BMI Method:Stated General Appearance: WD/WN, no apparent distress HEENT: PERRL/EOMI, normal ENT inspection, TMs normal, pharynx normal, other ( right cheek in the V2 distribution is tender to palpation.) Neck: non-tender, other (right anterior neck scars consistent with radical dissection of lymph nodes.) Respiratory: chest non-tender, lungs clear, normal breath sounds, no respiratory distress, no accessory muscle use Cardiovascular: normal peripheral pulses, regular rate, rhythm Gastrointestinal: normal bowel sounds, non tender, soft Neurologic/Psychiatric: tooth inspector II-XII nml as tested, no motor/sensory deficits, alert, normal mood/affect, oriented x 3 Crainal Nerves: normal hearing, normal speech, PERRL Coordination/Gait: normal gait Motor/Sensory: no motor deficit, no sensory deficit Skin: normal color, warm/dry Progress/Results/Core Measures Results/Orders My Orders Orders - ROCKY WATKINS Ketorolac Injection (Toradol Injection) (09/21/17 23:30) Iv Heplock-Insert (Order) (09/21/17 23:19) Acyclovir Injection (Zovirax Injection) (09/21/17 23:19) Medications Given in ED Current Medications Medications Dose Ordered Sig/Yolanda Route Start Time Stop Time Status Last Admin Dose Admin Ketorolac Tromethamine 10 mg ONCE ONCE IVP 09/21/17 23:30 09/21/17 23:31 DC 09/21/17 23:46 10 MG Vital Signs/I&O 09/21/17 23:06 Temp 97.7 Pulse 100 Resp 19 B/P (MAP) 139/109 (119) Pulse Ox 99 O2 Delivery Room Air Progress Progress Note : Time: 00:27 Progress Note She has received a gram of oral valacyclovir she were going to give her IV acyclovir 5 mg/kg and then admit her on the full 10 mg/kg which will round up to 1000 mg every 8 hours of acyclovir. We'll give her 10 mg Toradol for her pain. Departure Communication (Admissions) Time/Spoke to Admitting Phy: 00:[address] Mg and he would like the higher end dose of 10 mg/ kg acyclovir IV and he thinks Toradol if it has worked in the past would be a good pain medicine for now. Impression Primary Impression: Herpes zoster virus infection of face and ear nerves Disposition: ADMITTED INPATIENT Condition: Stable Admissions Decision to Admit Reason: Admit from ER (General) Decision to Admit/Date: Sep 22, 2017 Time/Decision to Admit Time: 00:27 Departure-Patient Inst. Referrals: MAISHA PIZANO MD (PCP/Family) Primary Care Physician Copy Copies To 1: MAISHA PIZANO MD, TITUS J Sep 21, 2017 23:26
[2017-09-21] MEDS ORDERED: KETOROLAC 30 MG/ML VIAL IVP ONE (23:30)
[2017-09-22] MEDS ORDERED: CATHETER FLUSH 10 ML SYR IV PRN (02:15)
[2017-09-22] MEDS ORDERED: ACETAMINOPHEN 500 MG TAB (TYLENOL) PO PRN (02:15)
[2017-09-22] MEDS ORDERED: ONDANSETRON 4 MG/2 ML (SDV) Z0FRAN IV PRN (02:15)
[2017-09-22 04:30] VITALS: BP 119/75
[2017-09-22] MEDS: CATHETER FLUSH 10 ML SYR IV SCH ×3 (06:00→21:07)
[2017-09-22 07:05] LABS: BASOPHILS % (AUTO) 0 % (0-10); EOSINOPHILS # (AUTO) 0.2 10^3/uL (0.0-0.3); EOSINOPHILS % (AUTO) 3 % (0-10); HEMATOCRIT 35 % (35-52); HEMOGLOBIN 11.8 G/DL (11.5-16.0); LYMPHOCYTES # (AUTO) 1.7 X 10^3 (1.0-4.0); LYMPHOCYTES % (AUTO) 28 % (12-44); MEAN CORPUSCULAR HEMOGLOBIN 32 PG (25-34); MEAN CORPUSCULAR HGB CONC 34 G/DL (32-36); MEAN CORPUSCULAR VOLUME 96 FL (80-99); MEAN PLATELET VOLUME 8.3 FL (7.4-10.4); MONOCYTES # (AUTO) 0.5 X 10^3 (0.0-1.0); MONOCYTES % (AUTO) 8 % (0-12); NEUTROPHILS # (AUTO) 3.8 X 10^3 (1.8-7.8); NEUTROPHILS % (AUTO) 62 % (42-75); PLATELET COUNT 232 10^3/uL (130-400); RED BLOOD COUNT 3.67 10^6/uL (4.35-5.85); RED CELL DISTRIBUTION WIDTH 12.5 % (10.0-14.5); WHITE BLOOD COUNT 6.1 10^3/uL (4.3-11.0)
[2017-09-22 07:24] LABS: ALANINE AMINOTRANSFERASE 11 U/L (0-55); ALBUMIN 3.5 GM/DL (3.2-4.5); ALKALINE PHOSPHATASE 67 U/L (40-136); BILIRUBIN,TOTAL 0.3 MG/DL (0.1-1.0); BUN/CREATININE RATIO 20; CALCIUM 8.6 MG/DL (8.5-10.1); CARBON DIOXIDE 26 MMOL/L (21-32); CHLORIDE 103 MMOL/L (98-107); GFR ESTIMATED > 60; GLUCOSE 84 MG/DL (70-105); POTASSIUM 3.9 MMOL/L (3.6-5.0); SODIUM 136 MMOL/L (135-145); TOTAL PROTEIN 5.6 GM/DL (6.4-8.2)
[2017-09-22 08:00] VITALS: BP 124/79
[2017-09-22] MEDS: VITAMIN D3 5,000 UNITS (CHOLECALCIFEROL ) CAPSULE PO SCH (08:26)
[2017-09-22] MEDS: DULoxetine 30 MG (CYMBALTA) CAP PO SCH (08:26)
[2017-09-22] MEDS: ACYCLOVIR 800 MG/NS 250 ML IVPB IV SCH ×6 (08:26→21:07)
[2017-09-22] MEDS: KETOROLAC 15 MG/ML VIAL IV PRN ×3 (08:27→21:01)
[2017-09-22] MEDS ORDERED: MECL-106 PO (08:35)
--- NOTE | 2017-09-22 10:33 | History & Physical-Hospitalist ---
History of Present Illness HPI/Chief Complaint Mrs. 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 She reports this is likely her 18th admission for her usual stereotypical symptoms which began with tingling and significant itching involving the right side of her face. She's been on suppressive acyclovir 4 mg twice a day the she states she has been compliant with and was returning from the [facility] when symptoms began. She took a 1 g Valtrex tablets but in 20 minutes until progression of right facial swelling and itching prompting her to present to the emergency room. She was last admitted in June for the same symptoms which did progress to vesiculation. She been relatively well otherwise complaining of some nonspecific lightheadedness divide denying overt vertiginous symptoms for the past month present for several days she had actually had several good days allowing her to go to the [facility] of the evening of her admission. She believes it IV acyclovir does attenuate her symptoms and did require hospital stay over a week in duration in June. Patient received a dose of IV acyclovir and upon my arrival there did not appear to be evidence for significant swelling. Past medical history is significant for melanoma on the right neck that required radical neck dissection over 15 years ago. Approximately a year later she had isolated met to the abdomen for which she underwent wide resection. The time of her original diagnosis she completed interferon therapy has been on active surveillance with no evidence for recurrence for roughly the last 14-15 years. Roughly 6 years ago she started having the above symptoms attributed to herpetic infection. She does not recall if viral cultures have been performed and I could not find any evidence for virologic results for herpes zoster or simplex in our electronic medical record. Date Seen 09/22/17 Time Seen by Provider: 08:00 Attending Physician Arturo Mg MD PCP Rosaline Flor M.D. Referring Physician Date of Admission Sep 22, 2017 at 00:28 Home Medications & Allergies Home Medications Reviewed patient Home Medication Reconciliation performed by pharmacy medication reconciliations pharmacy picking technician and/or nursing. Patients Allergies have been reviewed. Allergies Allergies Coded Allergies promethazine (Verified Allergy, Unknown, 04/13/16) vancomycin (Verified Allergy, Unknown, RASH, 09/13/16) reacted to iv vancomycin in cancer center on 12/3 Past Mrnbcdi-Vcxokh-Gfszuq Hx Past Med/Social Hx: Reviewed and Corrections made Patient Social History Alcohol Use: Denies Use Recreational Drug Use: No Smoking Status: Never a Smoker 2nd Hand Smoke Exposure: No Physical Abuse Screen: No Sexual Abuse: No Recent Foreign Travel: No Contact w/other who traveled: No Recent Hopitalizations: No Recent Infectious Disease Expo: No Immunizations Up To Date Tetanus Booster (TDap): Unknown Pediatric: Yes Seasonal Allergies Seasonal Allergies: No Past Medical History Surgeries: Abdominal, Bladder Surgery, Section, Gallbladder, Hysterectomy Currently Using CPAP: No Currently Using BIPAP: No Neurological: Headaches /Migraines : No Reproductive: Yes (Surgeries for Ovarian cysts) Sexually Transmitted Disease: No HIV/AIDS: No Female Reproductive Disorders: Endometriosis, Ovarian Cyst Hysterectomy Genitourinary: UTI-Chronic Gastrointestinal: Gastroesophageal Reflux, Esophagitis, Gall Bladder Disease, Irritable Bowel Musculoskeletal: Fibromyalgia HEENT: Dysphagia Loss of Vision: Denies Hearing Impairment: Denies Cancer: Melanoma Did You Recieve Any Treatments: Yes What Type of Treatment Did You: Chemotherapy, Radiation, Surgical Intervention Psychosocial: Anxiety, Depression Skin/Integumentary: Recent Skin Changes History of Blood Disorders: No Adverse Reaction to Blood [place]: No Family History Arthritis 19 MOTHER G8 SISTER Cataracts 19 MOTHER Congenital heart disease 19 FATHER (HEART DZ) Diabetes mellitus 19 FATHER Hypertension 19 FATHER Myocardial infarction 19 FATHER Respiratory disorder 19 FATHER (EMPHYSEMA) Seizure disorder G8 BROTHER (CEBERAL PALSY ALOS) No Pertinent Family Hx Review of Systems Constitutional: see HPI; No chills, No diaphoresis; dizziness; No fever, No malaise, No weakness, No weight gain, No weight loss, No other EENTM: see HPI Respiratory: no symptoms reported; No cough, No dyspnea on exertion, No orthopnea, No phlegm, No short of breath, No stridor, No wheezing Cardiovascular: no symptoms reported; No chest pain, No edema, No Hx of Intervention, No palpitations, No syncope, No vascular heart diseas, No other Gastrointestinal: other (No abdominal pain or change in bowel habits associated.) Physical Exam Physical Exam Vital Signs Vital Signs - First Documented 09/21/17 23:06 Temp 97.7 Pulse 100 Resp 19 B/P (MAP) 139/109 (119) Pulse Ox 99 O2 Delivery Room Air Capillary Refill : Less Than 3 Seconds Height, Weight, BMI Height: 5'4.00" Weight: 209lbs. 0.0oz. 94.868565us; 35.9 BMI Method:Actual General Appearance: No Apparent Distress, Anxious, Obese HEENT: PERRL/EOMI, Pharynx Normal, Other (No evidence for preauricular adenopathy or tenderness) Neck: Full Range of Motion, Other (Postoperative right radical neck changes no evidence for adenopathy) Respiratory: Chest Non Tender, Lungs Clear, Normal Breath Sounds, No Accessory Muscle Use, No Respiratory Distress Cardiovascular: Regular Rate, Rhythm, No Edema, No Gallop, No JVD, No Murmur, Normal Peripheral Pulses Gastrointestinal: Normal Bowel Sounds, No Organomegaly, No Pulsatile Mass, Non Tender, Soft Skin: Normal Color, Warm/Dry, Other (No evidence for erythema or induration or warmth there appears to be some very mild swelling involving the right cheek there is no evidence for hipesthesia or current pain to palpation) Results Results/Procedures Labs Laboratory Tests 09/22/17 06:55 Patient resulted labs reviewed. Assessment/Plan Admission Diagnosis A/P 1. Recurrent herpetic infection Symplex statistically more likely than zoster versus angioedema involving the right middle branch/V2 of the right trigeminal nerve. On reading the patient's last similar admission in June on presentation she did not have evidence for overt swelling or fasciculation but progressed. She reports that the vesicles do not scab over but resolved slowly unlike typical recurrent herpetic infection. I did discuss the importance of repeating a viral culture of vesicular fluid in the future if Dr. Allen who knows her case best does not recall this having been done to truly document that these are indeed recurrent herpetic infection. We'll continue IV acyclovir and monitoring. I did find documentation of normal immunoglobulin levels IgA IgG and IgM in 2011 after she had several recurrent events ruling out acquired immunoglobulin deficiency 2. Distant past history of metastatic melanoma likely cured as reportedly there has been at least 15 years since her last and only metastatic event. Admission Status: Inpatient Order (span 2 midnights) Reason for Inpatient Admission: See assessment and plan Clinical Quality Measures DVT/VTE Risk/Contraindication: Risk Factor Score Per Nursin RFS Level Per Nursing on Admit: 2=Moderate Copy Copies To 1: ROSALINE FLOR MARK D MD Sep 22, 2017 10:33
--- OUTSIDE RECORDS SUMMARY | 2017-09-22 11:46 | XMS REPORT | Clinical Summary ---
Author Author [facility] Organization [facility] Address Unknown Phone Unavailable Care Team Providers Care Head Strength And Conditioning Coach Name Role Phone Faizan Mann MD Unavailable Ammon Griffith MD PCP Rosa Elena Mendez RN Unavailable Unavailable Miley Thayer MD Unavailable Jhonny Sunshine MD Unavailable Stephen Palacio MD Unavailable Kris Martinez MD Unavailable Luis E Jacinto MD Unavailable Conor Williamson MD Unavailable Jeannette Marti DO Unavailable Mary Soria MD Unavailable Herberth Harp MD Unavailable Matthew De Los Santos MD Unavailable Source Comments Some departments are not documenting in the electronic medical record. If you do not see the information that you expected, contact Release of Information in the Health Information Management department at [phone] for further assistance in locating additional records.[facility] Allergies Active Allergy Reactions Severity Noted Date Comments Zeguwh-Wzid-Jt RASH 02/07/2014 Hmju-Eo-Cnykpeb Promethazine UNKNOWN 04/05/2010 Vancomycin ITCHING 04/06/2010 Current Medications Prescription Sig. Disp. Refills Start End Date Status Date amitriptyline (ELAVIL) 10 Take 1 Tab by mouth at 90 Tab 3 05/12/19 Active mg tablet bedtime daily. 16 acyclovir (ZOVIRAX) 400 Take 400 mg by mouth Active mg tablet every 24 hours. cholecalciferol(+) Take 1 Cap by mouth every 8 Cap 0 11/05/19 Active (Vitamin D3) 50,000 units 7 days. 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 Leukocytosis 02/07/2014 Facial rash 02/07/2014 HSV (herpes simplex virus) infection 08/28/2011 Cellulitis 04/09/2010 Melanoma (HCC) 04/09/2010 Urinary retention 04/09/2010 Blurry vision, bilateral 04/09/2010 Family History Medical History Relation Name Comments Diabetes Father Heart problem Father Relation Name Status Comments Father Alive Mother Alive Social History Tobacco Use Types Packs/Day Years Used Date Never Smoker Smokeless Tobacco: Never Used Tobacco Cessation: Counseling Given: No Alcohol Use Drinks/Week oz/Week Comments No 0 Standard 0.0 drinks or equivalent Sex Assigned at Date Recorded Not on file Last Filed Vital Signs Vital Sign Reading Time Taken Blood Pressure 120/80 05/23/2016 12:54 PM CDT Pulse 76 05/23/2016 12:54 PM CDT Temperature 36.9 C (98.5 F) 05/23/2016 12:54 PM CDT Respiratory Rate 16 05/23/2016 12:54 PM CDT Oxygen Saturation 97% 11/03/2015 12:58 PM CDT Inhaled Oxygen - - Concentration Weight 92.1 kg (203 lb) 05/23/2016 12:54 PM CDT Height 163.8 cm (5' 4.5") 05/23/2016 12:54 PM CDT Body Mass Index 34.31 05/23/2016 12:54 PM CDT Plan of Treatment Health Maintenance Due Date Last Done Comments PHYSICAL (COMPREHENSIVE) 1977 EXAM PERTUSSIS VACCINE 1981 TETANUS VACCINE 10/30/1987 CERVICAL CANCER SCREENING 2000 BREAST CANCER SCREENING 2010 INFLUENZA VACCINE 11/19/2017 HIV SCREENING Completed 04/08/2010 Results Not on filefrom Last 3 Months
--- OUTSIDE RECORDS SUMMARY | 2017-09-22 11:53 | XMS REPORT | Continuity of Care Document ---
Author Author [facility] Organization [facility] Address Unknown Phone Unavailable Allergies Active Description Code Type Severity Reaction Onset Reported/Identified Relationship to Patient Clinical Status Yes NKANo Known Allergies NKA Miscellaneous Allergy Unknown N/A 03/16/2008 Yes promethazine [id number] Drug Allergy Unknown N/A 04/13/2016 Yes vancomycin [id number] Drug Allergy Unknown RASH 09/13/2016 Medications There [...] Malin Ot 473.2 01/26/2014 HARINDER LAM, MAISHA aMlin Ot 756.0 02/02/2014 HIRAL PRESTON Ot 784.1 THROAT PAIN 02/02/2014 HIRAL PRESTON Ot 995.27 OTHER DRUG ALLERGY 02/02/2014 HIRAL [...] 03/18/2014 SANGEETHA, BOBJE N Ot 723.1 03/18/2014 SANGEETHA, MARYSE N Ot V10.82 03/18/2014 SANGEETHA, MARYSE [...] 04/07/2014 Ot V67.1 04/07/2014 ANA LAURA EDWARD SENIOR ENVIRONMENTAL ENGINEER Ot 054.9 04/07/2014 ANA LAURA EDWARD SENIOR ENVIRONMENTAL ENGINEER Ot 529.6 04/07/2014 ANA LAURA EDWARD SENIOR ENVIRONMENTAL ENGINEER Ot 723.4 04/07/2014 ANA LAURA EDWARD SENIOR ENVIRONMENTAL ENGINEER Ot V10.82 04/07/2014 ANA LAURA EDWARD SENIOR ENVIRONMENTAL ENGINEER Ot V58.69 04/07/2014 ANA LAURA EDWARD SENIOR ENVIRONMENTAL ENGINEER Ot V67.1 04/07/2014 ANA LAURA EDWARD SENIOR ENVIRONMENTAL ENGINEER Ot 172.9 04/07/2014 TYLOR MENDOZA MD Ot [...] TYLOR MENDOZA MD Ot 723.4 04/07/2014 TYLOR MEDNOZA MD Ot 786.50 04/07/2014 TYLOR MENDOZA MD [...] SADAF P Ot 478.0 04/07/2014 ARLENE LAM, SAADF P Ot V72.81 04/07/2014 ARLENE LAM, SADAF [...] FO 05/24/2015 SANGEETHAMARYSE N Ot 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 LONGTERM (CURRENT) DRUG THERAPY 05/24/2015 SANGEETHAMARYSE N Ot Z85.820 PERSONAL HISTORY OF MALIGNANT MELANOMA O 10/04/2015 SANGEETHAMARYSE N Ot F17.210 NICOTINE DEPENDENCE, CIGARETTES, UNCOMPL 10/04/2015 SANGEETHAMARYSE SANTIAGO N Ot Z08 ENCNTR FOR FOLLOW-UP EXAM AFTER TRTMT FO 10/04/2015 MARYSE VIVAS N Ot 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 RECORDS MANAGEMENT COORDINATOR (CURRENT) DRUG THERAPY 10/04/2015 MARYSE VIVAS Amrita Ot Z85.820 PERSONAL HISTORY OF MALIGNANT MELANOMA O 11/04/2015 MARYSE VIVAS Amrita Ot F17.210 NICOTINE DEPENDENCE, CIGARETTES, UNCOMPL 11/04/2015 MARYSE VIVAS Amrita Ot Z08 ENCNTR FOR FOLLOW-UP EXAM AFTER TRTMT FO 11/04/2015 MARYSE VIVAS Amrita Ot 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 RECORDS MANAGEMENT COORDINATOR (CURRENT) DRUG THERAPY 11/04/2015 MARYSE VIVAS Amrita Ot Z85.820 PERSONAL HISTORY OF MALIGNANT MELANOMA O 01/09/2016 MARYSE VIVAS Amrita Ot F17.210 NICOTINE DEPENDENCE, CIGARETTES, UNCOMPL 01/09/2016 MARYSE VIVAS Amrita Ot Z08 ENCNTR FOR FOLLOW-UP EXAM AFTER TRTMT FO 01/09/2016 MARYSE VIVAS Amrita Ot 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 RECORDS MANAGEMENT COORDINATOR (CURRENT) DRUG THERAPY 01/09/2016 MARYSE VIVAS Amrita Ot Z85.820 PERSONAL HISTORY OF MALIGNANT MELANOMA O 04/10/2016 MARYSE VIVAS Amrita Ot F17.210 NICOTINE DEPENDENCE, CIGARETTES, UNCOMPL 04/10/2016 MARYSE VIVAS N Ot Z08 ENCNTR FOR FOLLOW-UP EXAM AFTER TRTMT FO 04/10/2016 MARYSE VIVAS Amrita Ot 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 LONGTERM (CURRENT) DRUG THERAPY 04/10/2016 MARYSE VIVAS Amriat Ot Z85.820 PERSONAL HISTORY OF MALIGNANT MELANOMA O 04/13/2016 MARYSE VIVAS Amrita Ot F17.210 NICOTINE DEPENDENCE, CIGARETTES, UNCOMPL 04/13/2016 MARYSE VIVAS Amrita Ot Z08 ENCNTR FOR FOLLOW-UP EXAM AFTER TRTMT FO 04/13/2016 MARYSE VIVAS Amrita Ot 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 LONGTERM (CURRENT) DRUG THERAPY 04/13/2016 MARYSE VIVAS Amrita Ot Z85.820 PERSONAL HISTORY [...] V67.1 RADIOTHERAPY FOLLOW-UP 04/14/2016 ANA LAURA EDWARD SENIOR ENVIRONMENTAL ENGINEER Ot 054.9 HERPES SIMPLEX NOS 04/14/2016 ANA LAURA EDWARD SENIOR ENVIRONMENTAL ENGINEER Ot 529.6 GLOSSODYNIA 04/14/2016 ANA LAURA EDWARD SENIOR ENVIRONMENTAL ENGINEER Ot 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 NEURITIS NOS 04/14/2016 ANA LAURA EDWARD SENIOR ENVIRONMENTAL ENGINEER Ot V10.82 HX-MALIG SKIN MELANOMA 04/14/2016 ANA LAURA EDWARD SENIOR ENVIRONMENTAL ENGINEER Ot V58.69 OTH MED,LT,CURRENT USE 04/14/2016 ANA LAURA EDWARD SENIOR ENVIRONMENTAL ENGINEER Ot V67.1 RADIOTHERAPY FOLLOW-UP 04/14/2016 ANA LAURA EDWARD SENIOR ENVIRONMENTAL ENGINEER Ot 172.9 MALIG MELANOMA SKIN NOS 04/14/2016 [...] VIVAS N Ot V67.1 RADIOTHERAPY FOLLOW-UP 04/14/2016 MARSYE VIVAS N Ot 172.9 MALIG MELANOMA SKIN [...] TURBINAT 04/14/2016 SADAF JACOBS MD Ot V72.81 [id number] CARDIOVASCULAR 04/14/2016 SADAF JACOBS MD Ot V72.83 [...] FO 04/14/2016 MARYSE VIVAS Ot 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 LONGTERM (CURRENT) DRUG THERAPY 04/14/2016 MARYSE VIVAS N [...] F32.9 MAJOR DEPRESSIVE DISORDER, SINGLE EPISOD 04/21/2016 SANGEETAHMARYSE Ot F41.9 ANXIETY DISORDER, UNSPECIFIED 04/21/2016 SANGEETHAMARYSE [...] FO 04/24/2016 MARYSE VIVAS Ot 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 RECORDS MANAGEMENT COORDINATOR (CURRENT) DRUG THERAPY 04/24/2016 MARYSE VIVAS Ot [...] FO 05/10/2016 MARYSE VIVAS Ot 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 LONGTERM (CURRENT) DRUG THERAPY 05/10/2016 MARYSE VIVAS Ot Z85.820 PERSONAL HISTORY OF MALIGNANT MELANOMA O 07/11/2016 MARYSE VIVAS Ot F17.210 NICOTINE DEPENDENCE, CIGARETTES, UNCOMPL 07/11/2016 MARYSE VIVAS Ot Z08 ENCNTR FOR FOLLOW-UP EXAM AFTER TRTMT FO 07/11/2016 MARYSE VIVAS Ot 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 LONGTERM (CURRENT) DRUG THERAPY 07/11/2016 MARYSE VIVAS Ot Z85.820 PERSONAL HISTORY OF MALIGNANT MELANOMA O 09/13/2016 MARYSE VIVAS Ot F17.210 NICOTINE DEPENDENCE, CIGARETTES, UNCOMPL 09/13/2016 MARYSE VIAVS Ot Z08 ENCNTR FOR FOLLOW-UP EXAM AFTER TRTMT FO 09/13/2016 MARYSE VIVAS Ot 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 LONGTERM (CURRENT) DRUG THERAPY 09/13/2016 MARYSE VIVAS Ot [...] V67.1 RADIOTHERAPY FOLLOW-UP 12/04/2016 ANA LAURA EDWARD SENIOR ENVIRONMENTAL ENGINEER Ot 054.9 HERPES SIMPLEX NOS 12/04/2016 ANA LAURA EDWARD SENIOR ENVIRONMENTAL ENGINEER Ot 529.6 GLOSSODYNIA 12/04/2016 ANA LAURA EDWARD SENIOR ENVIRONMENTAL ENGINEER Ot 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 NEURITIS NOS 12/04/2016 ANA LAURA EDWARD SENIOR ENVIRONMENTAL ENGINEER Ot V10.82 HX-MALIG SKIN MELANOMA 12/04/2016 ANA LAURA EDWARD SENIOR ENVIRONMENTAL ENGINEER Ot V58.69 OTH MED,LT,CURRENT USE 12/04/2016 ANA LAURA EDWARD SENIOR ENVIRONMENTAL ENGINEER Ot V67.1 RADIOTHERAPY FOLLOW-UP 12/04/2016 ANA LAURA EDWARD SENIOR ENVIRONMENTAL ENGINEER Ot 172.9 MALIG MELANOMA SKIN NOS 12/04/2016 [...] 12/04/2016 ARLENE LAM, SADAF Mcdaniel Ot V72.81 [id number] CARDIOVASCULAR 12/04/2016 SADAF JACOBS MD Ot V72.83 [...] Ot F17.210 NICOTINE DEPENDENCE, CIGARETTES, UNCOMPL 12/04/2016 MAYRSE VIVAS Amrita Ot Z08 ENCNTR FOR FOLLOW-UP EXAM AFTER TRTMT FO 12/04/2016 MARYSE VIVAS Amrita Ot 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 LONGTERM (CURRENT) DRUG THERAPY 12/04/2016 MARYSE VIVAS Amrita [...] 01/05/2017 MARYSE VIVAS Amrita Ot 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 LONGTERM (CURRENT) DRUG THERAPY 01/05/2017 MARYSE VIVAS Amrita [...] 01/16/2017 MARYSE VIVAS N Ot 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 LONGTERM (CURRENT) DRUG THERAPY 01/16/2017 SANGEETHA STEFFANIEJE N [...] 02/01/2017 SANGEETHA MARYSE Crowe Ot 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 LONGTERM (CURRENT) DRUG THERAPY 02/01/2017 SANGEETHAMARYSE N Ot Z85.820 PERSONAL HISTORY OF MALIGNANT MELANOMA O 02/02/2017 ARLENE LAM, SADAF Mcdaniel Ot E04.1 NONTOXIC SINGLE THYROID NODULE 02/02/2017 ARLENE LAM, SADAF Mcdaniel Ot Z85.820 PERSONAL HISTORY OF MALIGNANT MELANOMA O 02/23/2017 SADAF JCAOBS MD Ot E04.1 NONTOXIC SINGLE THYROID NODULE [...] FO 04/04/2017 MARYSE VIVAS Ot 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 RECORDS MANAGEMENT COORDINATOR (CURRENT) DRUG THERAPY 04/04/2017 MARYSE VIVAS Ot [...] HERPES SIMPLEX NOS 04/04/2017 ANA LAURA EDWARD SENIOR ENVIRONMENTAL ENGINEER Ot 529.6 GLOSSODYNIA 04/04/2017 ANA LAURA EDWARD SENIOR ENVIRONMENTAL ENGINEER Ot 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 NEURITIS NOS 04/04/2017 ANA LAURA EDWRADP Ot V10.82 HX-MALIG SKIN MELANOMA 04/04/2017 ANA LAURA EDWARD Ot V58.69 OTH MED,LT,CURRENT USE 04/04/2017 ANA LAURA EDWARD SENIOR ENVIRONMENTAL ENGINEER Ot V67.1 RADIOTHERAPY FOLLOW-UP 04/04/2017 ANA LAURA [...] Ot V72.84 EXAM PRE-OPERATIVE NOS 04/04/2017 MARYSE VVIAS Ot 276.69 OTHER FLUID OVERLOAD 04/04/2017 MARYSE [...] 04/04/2017 ARLENE LAM, SADAF Mcdaniel Ot V72.81 [id number] CARDIOVASCULAR 04/04/2017 ARLENE LAM, SADAF Mcdaniel Ot [...] 789.00 ABDOMINAL PAIN, UNSPECIFIED SITE 04/04/2017 MARYSE IVVAS N Ot 172.9 MALIG MELANOMA SKIN NOS [...] FO 04/04/2017 MARYSE VIVAS Ot 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 LONGTERM (CURRENT) DRUG THERAPY 04/04/2017 MARYSE VIVAS Ot [...] FO 04/05/2017 MARYSE VIVAS Ot 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 LONGTERM (CURRENT) DRUG THERAPY 04/05/2017 MARYSE VIVAS Ot [...] V67.1 RADIOTHERAPY FOLLOW-UP 05/11/2017 ANA LAURA EDWARD SENIOR ENVIRONMENTAL ENGINEER Ot 054.9 HERPES SIMPLEX NOS 05/11/2017 ANA LAURA EDWARD SENIOR ENVIRONMENTAL ENGINEER Ot 529.6 GLOSSODYNIA 05/11/2017 ANA LAURA EDWARD SENIOR ENVIRONMENTAL ENGINEER Ot 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 NEURITIS NOS 05/11/2017 ANA LAURA EDWARD SENIOR ENVIRONMENTAL ENGINEER Ot V10.82 HX-MALIG SKIN MELANOMA 05/11/2017 ANA LAURA EDWARD SENIOR ENVIRONMENTAL ENGINEER Ot V58.69 OTH MED,LT,CURRENT USE 05/11/2017 ANA LAURA EDWARD SENIOR ENVIRONMENTAL ENGINEER Ot V67.1 RADIOTHERAPY FOLLOW-UP 05/11/2017 EDWARDANA LAURA Rucker Chaim SENIOR ENVIRONMENTAL ENGINEER Ot 172.9 MALIG MELANOMA SKIN NOS 05/11/2017 [...] 05/11/2017 ARLENE LAM, SADAF Mcdaniel Ot V72.81 [id number] CARDIOVASCULAR 05/11/2017 ARLENE LAM, SADAF P Ot [...] FO 05/16/2017 MARYSE VIVAS Ot 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 LONGTERM (CURRENT) DRUG THERAPY 05/16/2017 MARYSE VIVAS Ot [...] V67.1 RADIOTHERAPY FOLLOW-UP 05/31/2017 ANA LAURA EDWARD SENIOR ENVIRONMENTAL ENGINEER Ot 054.9 HERPES SIMPLEX NOS 05/31/2017 ANA LAURA EDWARD SENIOR ENVIRONMENTAL ENGINEER Ot 529.6 GLOSSODYNIA 05/31/2017 ANA LAURA EDWARD SENIOR ENVIRONMENTAL ENGINEER Ot 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 NEURITIS NOS 05/31/2017 ANA LAURA EDWARD SENIOR ENVIRONMENTAL ENGINEER Ot V10.82 HX-MALIG SKIN MELANOMA 05/31/2017 ANA LAURA EDWARD SENIOR ENVIRONMENTAL ENGINEER Ot V58.69 OTH MED,LT,CURRENT USE 05/31/2017 ANA LAURA EDWARD SENIOR ENVIRONMENTAL ENGINEER Ot V67.1 RADIOTHERAPY FOLLOW-UP 05/31/2017 ANA LAURA EDWARD SENIOR ENVIRONMENTAL ENGINEER Ot 172.9 MALIG MELANOMA SKIN NOS 05/31/2017 [...] 05/31/2017 ARLENE LAM, SADAF Mcdaniel Ot V72.81 [id number] CARDIOVASCULAR 05/31/2017 ARLENE LAM, SADAF Mcdaniel Ot [...] FO 05/31/2017 MARYSE VIVAS Ot 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 LONGTERM (CURRENT) DRUG THERAPY 05/31/2017 MARYSE VIVAS Ot [...] NICOTINE DEPENDENCE, CIGARETTES, UNCOMPL 05/31/2017 MARYSE VIVAS Amrita Ot G62.9 POLYNEUROPATHY, UNSPECIFIED 05/31/2017 MARYSE VIVAS Amrita Ot Z08 ENCNTR FOR FOLLOW-UP EXAM AFTER TRTMT FO 05/31/2017 MARYSE VIAVS Ot 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 LONGTERM (CURRENT) DRUG THERAPY 05/31/2017 MARYSE VIVAS Ot Z85.820 PERSONAL HISTORY OF MALIGNANT MELANOMA O 05/31/2017 ARLENE LAM, SADAF Mcdaniel Ot E04.2 NONTOXIC MULTINODULAR GOITER 07/03/2017 ALYSIA ARIAS APRN Ot 729.2 NEURALGIA/NEURITIS NOS 07/03/2017 Ot 723.1 CERVICALGIA 07/03/2017 Ot V10.82 HX-MALIG SKIN MELANOMA 07/03/2017 Ot V58.69 OTH MED,LT, CURRENT USE 07/03/2017 Ot V67.1 RADIOTHERAPY FOLLOW-UP 07/03/2017 ANA LAURA EDWARD SENIOR ENVIRONMENTAL ENGINEER Ot 054.9 HERPES SIMPLEX NOS 07/03/2017 ANA LAURA EDWARD SENIOR ENVIRONMENTAL ENGINEER Ot 529.6 GLOSSODYNIA 07/03/2017 ANA LAURA EDWARD SENIOR ENVIRONMENTAL ENGINEER Ot 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 NEURITIS NOS 07/03/2017 ANA LAURA EDWARD SENIOR ENVIRONMENTAL ENGINEER Ot V10.82 HX-MALIG SKIN MELANOMA 07/03/2017 ANA LAURA EDWARD SENIOR ENVIRONMENTAL ENGINEER Ot V58.69 OTH MED,LT,CURRENT USE 07/03/2017 ANA LAURA EDWARD SENIOR ENVIRONMENTAL ENGINEER Ot V67.1 RADIOTHERAPY FOLLOW-UP 07/03/2017 EDWARD, HILAH S SENIOR ENVIRONMENTAL ENGINEER Ot 172.9 MALIG MELANOMA SKIN NOS 07/03/2017 TYLOR MENDOZA MD Ot 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 07/03/2017 TYLOR MENDOZA MD Ot 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 DISC DEGEN 07/03/2017 TYLOR MENDOZA MD Ot 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 NEURITIS NOS 07/03/2017 TYLOR MENDOZA MD Ot 724.6 DISORDERS OF SACRUM 07/03/2017 TYLOR MENDOZA MD Ot 729.1 MYALGIA AND MYOSITIS NOS 07/03/2017 TYLOR MENDOZA MD Ot V58.69 OTH MED,LT,CURRENT USE 07/03/2017 TYLOR MENDOZA MD Ot 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 07/03/2017 TYLOR MENDOZA MD Ot 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 DISC DEGEN 07/03/2017 TYLOR MENDOZA MD Ot 723.1 CERVICALGIA 07/03/2017 TYLOR MENDOZA MD Ot 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 NEURITIS NOS 07/03/2017 TYLOR MENDOZA MD Ot 786.50 CHEST PAIN NOS 07/03/2017 TYLOR MENDOZA MD Ot V58.69 OTH MED,LT,CURRENT USE 07/03/2017 YOMAIRA MCKENZIE DO Ot V72.84 EXAM PRE-OPERATIVE NOS 07/03/2017 MARYSE VIVAS Ot 276.69 OTHER FLUID OVERLOAD 07/03/2017 MARYSE VIVAS Ot 723.1 CERVICALGIA 07/03/2017 MARYSE VIVAS Ot V10.82 HX-MALIG SKIN MELANOMA 07/03/2017 MARYSE VIVAS Ot V58.69 OTH MED,LT,CURRENT USE 07/03/2017 MARYSE VIVAS Ot V67.1 RADIOTHERAPY FOLLOW-UP 07/03/2017 MARYSE VIVAS Ot 172.9 MALIG MELANOMA SKIN NOS 07/03/2017 TYLOR MENDOZA MD Ot 722.4 CERVICAL DISC DEGEN 07/03/2017 Ot 276.69 OTHER FLUID OVERLOAD 07/03/2017 Ot 723.1 CERVICALGIA 07/03/2017 Ot V10.82 HX-MALIG SKIN MELANOMA 07/03/2017 Ot V58.69 OTH MED,LT, CURRENT USE 07/03/2017 Ot V67.1 RADIOTHERAPY FOLLOW-UP 07/03/2017 HARINDER LAM, MAISHA Malin Ot 473.0 CHR MAXILLARY SINUSITIS 07/03/2017 HARINDER LAM, MAISHA Malin Ot 473.2 CHR ETHMOIDAL SINUSITIS 07/03/2017 HARINDER LAM, MAISHA Malin Ot 756.0 ANOMAL SKULL/FACE BONES 07/03/2017 SADAF JACOBS MD Ot 473.9 CHRONIC SINUSITIS NOS 07/03/2017 SADAF JACOBS MD Ot 478.0 HYPERTRPH NASAL TURBINAT 07/03/2017 SADAF JACOBS MD Ot V72.81 BLHP-[id number]-KXTEIXOBQ CARDIOVASCULAR 07/03/2017 SADAF JACOBS MD Ot V72.83 EXAM PRE-OPERATIVE NEC 07/03/2017 SADAF JACOBS MD Ot V74.8 SCREEN-BACTERIAL DIS NEC 07/03/2017 MARYSE VIVAS N Ot 457.1 OTHER LYMPHEDEMA 07/03/2017 MARYSE VIVAS N Ot 723.1 CERVICALGIA 07/03/2017 MARYSE VIVAS N Ot V10.82 HX-MALIG SKIN MELANOMA 07/03/2017 MARYSE VIVAS N Ot V58.69 OTH MED,LT,CURRENT USE 07/03/2017 SANGEETHA BOBAN N Ot V67.1 RADIOTHERAPY FOLLOW-UP 07/03/2017 MARYSE VIVAS N Ot 789.00 ABDOMINAL PAIN, UNSPECIFIED SITE 07/03/2017 MARYSE VIVAS N Ot 172.9 MALIG MELANOMA SKIN NOS 07/03/2017 MARYSE VIVAS N Ot 780.96 GENERALIZED PAIN 07/03/2017 Ot 787.02 NAUSEA ALONE 07/03/2017 Ot 789.00 ABDOMINAL PAIN, UNSPECIFIED SITE 07/03/2017 Ot 793.11 SOLITARY PULMONARY NODULE 07/03/2017 MARYSE VIVAS N Ot V10.82 HX-MALIG SKIN MELANOMA 07/03/2017 MARYSE VIVAS N Ot V58.69 OTH MED,LT,CURRENT USE 07/03/2017 SANGEETHA BOBAN N Ot V67.1 RADIOTHERAPY FOLLOW-UP 07/03/2017 SANGEETHA BOBJE N Ot 793.11 SOLITARY PULMONARY NODULE 07/03/2017 MARYSE VIVAS N Ot 356.9 IDIO PERIPH NEURPTHY NOS 07/03/2017 MARYSE VIVAS N Ot 719.49 JOINT PAIN-MULT JTS 07/03/2017 MARYSE VIVAS Ot 723.1 CERVICALGIA 07/03/2017 MARYSE VIVAS Ot V10.82 HX-MALIG SKIN MELANOMA 07/03/2017 MARYSE VIVAS Ot V58.69 OTH MED,LT,CURRENT USE 07/03/2017 MARYSE VIVAS Ot V67.1 RADIOTHERAPY FOLLOW-UP 07/03/2017 MARYSE VIVAS Ot F17.210 NICOTINE DEPENDENCE, CIGARETTES, UNCOMPL 07/03/2017 MARYSE VIVAS Ot Z08 ENCNTR FOR FOLLOW-UP EXAM AFTER TRTMT FO 07/03/2017 MARYSE VIVAS Ot 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 LONGTERM (CURRENT) DRUG THERAPY 07/03/2017 MARYSE VIVAS Ot Z85.820 PERSONAL HISTORY OF MALIGNANT MELANOMA O 07/05/2017 ROSALINE FLOR DO S Ot 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 07/05/2017 ROSALINE FLOR DO S Ot B02.9 ZOSTER WITHOUT COMPLICATIONS 07/05/2017 ROSALINE FLOR DO S Ot F32.9 MAJOR DEPRESSIVE DISORDER, SINGLE EPISOD 07/05/2017 ELHAM FLOR DOLINE S Ot F41.9 ANXIETY DISORDER, UNSPECIFIED 07/05/2017 ELHAM FLOR DOLINE S Ot G43.909 MIGRAINE, UNSP, NOT INTRACTABLE, WITHOUT 07/05/2017 MEIRNDELHAM LEUNG DOLINE S Ot I10 ESSENTIAL (PRIMARY) HYPERTENSION 07/05/2017 ELHAM FLOR DOLINE S Ot K21.9 GASTRO-ESOPHAGEAL REFLUX DISEASE WITHOUT 07/05/2017 ELHAM FLOR DOLINE S Ot K44.9 DIAPHRAGMATIC HERNIA WITHOUT OBSTRUCTION 07/05/2017 ELHAM FLOR DOLINE S Ot K58.9 IRRITABLE BOWEL SYNDROME WITHOUT DIARRHE 07/05/2017 ROSALINE FLOR DO S Ot M54.10 RADICULOPATHY, SITE UNSPECIFIED 07/05/2017 ELHAM FLOR DOLINE S Ot M79.7 FIBROMYALGIA 07/05/2017 ELHAM FLOR DOLINE S Ot R13.10 DYSPHAGIA, UNSPECIFIED 07/05/2017 ELHAM FLOR DOLINE S Ot Z85.820 PERSONAL HISTORY OF MALIGNANT MELANOMA O 07/05/2017 MANPREET LEACH ROSALINE Chaim Ot Z92.21 PERSONAL HISTORY OF ANTINEOPLASTIC CHEMO 07/05/2017 MARISOL ROSALINE Chaim Ot Z92.3 PERSONAL HISTORY OF IRRADIATION 07/05/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 07/05/2017 MARISOL ROSALINE S Ot B02.9 ZOSTER WITHOUT COMPLICATIONS 07/05/2017 MEIREUSEBIO ROSALINE S Ot F32.9 MAJOR DEPRESSIVE DISORDER, SINGLE EPISOD 07/05/2017 MARISOL ROSALINE S Ot F41.9 ANXIETY DISORDER, UNSPECIFIED 07/05/2017 MARISOLMADHU LEACH RSOALINE S Ot G43.909 MIGRAINE, UNSP, NOT INTRACTABLE, WITHOUT 07/05/2017 MARISOL ROSALINE S Ot I10 ESSENTIAL (PRIMARY) HYPERTENSION 07/05/2017 MARISOL ROSALINE S Ot K21.9 GASTRO-ESOPHAGEAL REFLUX DISEASE WITHOUT 07/05/2017 MARISOLMADHU LEACHROSALINE S Ot K44.9 DIAPHRAGMATIC HERNIA WITHOUT OBSTRUCTION 07/05/2017 MEIREUSEBIO ROSALINE S Ot K58.9 IRRITABLE BOWEL SYNDROME WITHOUT DIARRHE 07/05/2017 MEIRAZIZA LEACH ROSALINE S Ot M54.10 RADICULOPATHY, SITE UNSPECIFIED 07/05/2017 MEIRAZIZA LEACHALBERROSALINE S Ot M79.7 FIBROMYALGIA 07/05/2017 MEIREUSEBIO ROSALINE S Ot R13.10 DYSPHAGIA, UNSPECIFIED 07/05/2017 MEIREUSEBIO ROSALINE S Ot Z85.820 PERSONAL HISTORY OF MALIGNANT MELANOMA O 07/05/2017 MEIREUSEBIO ROSALINE S Ot Z92.21 PERSONAL HISTORY OF ANTINEOPLASTIC CHEMO 07/05/2017 MEIRESUEBIO ROSALINE S Ot Z92.3 PERSONAL HISTORY OF IRRADIATION 07/05/2017 MARISOLMADHU LEACHROSALINE Ot 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 07/05/2017 MARISOLMADHU LEACHROSALINE Ot B02.9 ZOSTER WITHOUT COMPLICATIONS 07/05/2017 MARISOLMADHU ROSALINE LEACH Ot F32.9 MAJOR DEPRESSIVE DISORDER, SINGLE EPISOD 07/05/2017 MARISOL ROSALINE LEACH Ot F41.9 ANXIETY DISORDER, UNSPECIFIED 07/05/[facility]ucker Ot G43.909 MIGRAINE, UNSP, NOT INTRACTABLE, WITHOUT 07/05/[facility] ROS[facility] LEACH Chaim Ot I10 ESSENTIAL (PRIMARY) HYPERTENSION 07/05/2017 [facility] ROSALINE LEACH Chaim Ot K21.9 GASTRO-ESOPHAGEAL REFLUX DISEASE WITHOUT 07/05/2017 [facility] AL[facility] LEACHROSALINE Chaim Ot K44.9 DIAPHRAGMATIC HERNIA WITHOUT OBSTRUCTION 07/05/2017 [facility] DO ROSALINE S Ot K58.9 IRRITABLE BOWEL SYNDROME WITHOUT DIARRHE 07/05/2017 [facility] ALBERROSALINE Chaim Ot M54.10 RADICULOPATHY, SITE UNSPECIFIED 07/05/2017 [facility] ROSALINE LEACH Ot M79.7 FIBROMYALGIA 07/05/2017 [facility] ROSALINE LEACH Chaim Ot R13.10 DYSPHAGIA, UNSPECIFIED 07/05/2017 [facility] ROSALINE LEACH Chaim Ot Z85.820 PERSONAL HISTORY OF MALIGNANT MELANOMA O 07/05/2017 [facility] ROSALINE Rucker Ot Z92.21 PERSONAL HISTORY OF ANTINEOPLASTIC CHEMO 07/05/2017 [facility] ROSALINE Rucker Ot Z92.3 PERSONAL HISTORY OF IRRADIATION 07/10/2017 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 ROSALINE LEACH Chaim Ot B02.9 ZOSTER WITHOUT COMPLICATIONS 07/10/2017 [facility] ROSALINE LEACH Chaim Ot F32.9 MAJOR DEPRESSIVE DISORDER, SINGLE EPISOD 07/10/2017 [facility] ALBER LEACHROSALINE Chaim Ot F41.9 ANXIETY DISORDER, UNSPECIFIED 07/10/2017 [facility] ALBER LEACHROSALINE Chaim Ot G43.909 MIGRAINE, UNSP, NOT INTRACTABLE, WITHOUT 07/10/2017 [facility] ROSALINE LEACH Chaim Ot I10 ESSENTIAL (PRIMARY) HYPERTENSION 07/10/2017 [facility] ROSALINE LEACH Chaim Ot K21.9 GASTRO-ESOPHAGEAL REFLUX DISEASE WITHOUT 07/10/[facility]ALNIE LEACH Chaim Ot K44.9 DIAPHRAGMATIC HERNIA WITHOUT OBSTRUCTION 07/10/2017 [facility] ROSALINE LEACH Chaim Ot K58.9 IRRITABLE BOWEL SYNDROME WITHOUT DIARRHE 07/10/2017 ROSALINE FLOR DO Ot M54.10 RADICULOPATHY, SITE UNSPECIFIED 07/10/2017 ROSALINE FLOR DO Ot M79.7 FIBROMYALGIA 07/10/2017 ROSALINE FLOR DO Ot R13.10 DYSPHAGIA, UNSPECIFIED 07/10/2017 ROSALINE FLOR DO Ot Z85.820 PERSONAL HISTORY OF MALIGNANT MELANOMA O 07/10/2017 ROSALINE FLOR DO Ot Z92.21 PERSONAL HISTORY OF ANTINEOPLASTIC CHEMO 07/10/2017 ROSALINE FLOR DO Ot Z92.3 PERSONAL HISTORY OF IRRADIATION 07/13/2017 ROSALINE FLOR DO Ot 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 07/13/2017 ROSALINE FLOR DO Ot B02.9 ZOSTER WITHOUT COMPLICATIONS 07/13/2017 ROSALINE FLOR DO Ot F32.9 MAJOR DEPRESSIVE DISORDER, SINGLE EPISOD 07/13/2017 ROSALINE FLOR DO Ot F41.9 ANXIETY DISORDER, UNSPECIFIED 07/13/2017 ROSALINE FLOR DO Ot G43.909 MIGRAINE, UNSP, NOT INTRACTABLE, WITHOUT 07/13/2017 ROSALINE FLOR DO Ot I10 ESSENTIAL (PRIMARY) HYPERTENSION 07/13/2017 ROSALINE FLOR DO Ot K21.9 GASTRO-ESOPHAGEAL REFLUX DISEASE WITHOUT 07/13/2017 ROSALINE FLOR DO Ot K44.9 DIAPHRAGMATIC HERNIA WITHOUT OBSTRUCTION 07/13/2017 ROSALINE FLOR DO Ot K58.9 IRRITABLE BOWEL SYNDROME WITHOUT DIARRHE 07/13/2017 ROSALINE FLOR DO Ot M54.10 RADICULOPATHY, SITE UNSPECIFIED 07/13/2017 ROSALINE FLOR DO Ot M75.52 BURSITIS OF LEFT SHOULDER 07/13/2017 ROSALINE FLOR DO Ot M79.7 FIBROMYALGIA 07/13/2017 ROSALINE FLOR DO Ot R13.10 DYSPHAGIA, UNSPECIFIED 07/13/2017 ROSALINE FLOR DO Ot Z85.820 PERSONAL HISTORY OF MALIGNANT MELANOMA O 07/13/2017 ROSALINE FLOR DO Ot Z92.21 PERSONAL HISTORY OF ANTINEOPLASTIC CHEMO 07/13/2017 ROSALINE FLOR DO Ot Z92.3 PERSONAL HISTORY OF IRRADIATION 08/30/2017 MARYSE VIVAS Ot B00.9 HERPESVIRAL INFECTION, UNSPECIFIED 08/30/2017 MARYSE VIVAS Ot E55.9 VITAMIN D DEFICIENCY, UNSPECIFIED 08/30/2017 MARYSE VIVAS Ot F17.210 NICOTINE DEPENDENCE, CIGARETTES, UNCOMPL 08/30/2017 MARYSE VIVAS Ot G62.9 POLYNEUROPATHY, UNSPECIFIED 08/30/2017 MARYSE VIVAS Ot R30.0 DYSURIA 08/30/2017 MARYSE VIVAS Ot R39.15 URGENCY OF URINATION 08/30/2017 MARYSE VIVAS Ot Z08 ENCNTR FOR FOLLOW-UP EXAM AFTER TRTMT FO 08/30/2017 MARYSE VIVAS Ot 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 LONGTERM (CURRENT) DRUG THERAPY 08/30/2017 MARYSE VIVAS Ot Z85.820 PERSONAL HISTORY OF MALIGNANT MELANOMA O Procedures Code Description Performed By Performed On 57.32 CYSTOSCOPY NEC 02/23/2014 70.21 VAGINOSCOPY 02/23/2014 [id number] INSERTION OF INFUSION DEV INTO SUP VENA 04/17/2016 [id number] INSERTION OF INFUSION DEV INTO SUP VENA 09/18/2016 [id number] INSERTION OF INFUSION DEVICE INTO R ATRI 07/06/2017 [id number] INSERT OF TUNNEL VAD INTO CHEST SUBCU/FA 07/06/2017 Results Test Result Range Urinalysis - 03/02/16 [...] 5-8.5 Urine-Protein 2+ Negative Urine-RBC 20-40/HPF Urine-Specific [place] >=1.030 1.000-1.030 Urine-WBC TNTC Urobilinogen 1.0 E.U./dL 0.2-1.0 Bacterial blood culture - 04/13/16 23:35 Bacterial blood culture [facility] Complete blood count (CBC) with automated white [...] culture - 04/14/16 00:06 Bacterial blood culture NR Complete blood count (CBC) with automated white [...] Automated blood platelet mean volume measurement 8.7 [[facility]] 7.4-10.4 Automated blood neutrophils/100 leukocytes 54 % [...] 10/03 16:00 NRG QUANTITY OF GROWTH . [facility] Bacterial blood culture SEE COMMEN [facility] Bacterial susceptibility panel - 10/02/16 00:40 Gentamicin [...] susceptibility test by minimum inhibitory concentration - [facility] Cefepime susceptibility test by minimum inhibitory concentration <= NRG Bacterial blood culture - 10/02/16 01:05 Bacterial blood culture [facility] Complete blood count (CBC) with automated white [...] (T4) free measurement (mass/volume) 0.95 ng/dL 0.70-1.48 [id number] - 03/29/17 08:02 Serum or plasma urea nitrogen measurement (mass/volume) 12 mg/dL 7-18 Serum or plasma creatinine measurement (mass/volume) 0.86 mg/dL 0.60-1.30 Serum or plasma urea nitrogen/creatinine mass ratio 14 NRG Serum or plasma creatinine measurement with calculation of estimated glomerular filtration rate > NRG Complete blood count (CBC) with automated white blood cell (WBC) differential - 07/03/17 18:00 Blood leukocytes automated count (number/volume) 5.1 10*3/uL 4.3-11.0 Blood erythrocytes automated count (number/volume) 4.57 10*6/uL 4.35-5.85 Venous blood hemoglobin measurement (mass/volume) 14.4 g/dL 11.5-16.0 Blood hematocrit (volume fraction) 42 % 35-52 Automated erythrocyte mean corpuscular volume 92 [foz_us] 80-99 Automated erythrocyte mean corpuscular hemoglobin (mass per erythrocyte) 32 pg 25-34 Automated erythrocyte mean corpuscular hemoglobin concentration measurement ( mass/volume) 34 g/dL 32-36 Automated erythrocyte distribution width ratio 12.5 % 10.0-14.5 Automated blood platelet count (count/volume) 243 10*3/uL 130-400 Automated blood platelet mean volume measurement 8.7 [foz_us] 7.4-10.4 Automated blood neutrophils/100 leukocytes 56 % 42-75 Automated blood lymphocytes/100 leukocytes 31 % 12-44 Blood monocytes/100 leukocytes 9 % 0-12 Automated blood eosinophils/100 leukocytes 4 % 0-10 Automated blood basophils/100 leukocytes 0 % 0-10 Blood neutrophils automated count (number/volume) 2.9 10*3 1.8-7.8 Blood lymphocytes automated count (number/volume) 1.6 10*3 1.0-4.0 Blood monocytes automated count (number/volume) 0.5 10*3 0.0-1.0 Automated eosinophil count 0.2 10*3/uL 0.0-0.3 Automated blood basophil count (count/volume) 0.0 10*3/uL 0.0-0.1 Blood lactic acid measurement (moles/volume) - 07/03/17 18:00 Blood lactic acid measurement (moles/volume) 1.10 mmol/L 0.50-2.00 Comprehensive metabolic panel - 07/03/17 18:00 Serum or plasma sodium measurement (moles/volume) 138 mmol/L 135-145 Serum or plasma potassium measurement (moles/volume) 4.3 mmol/L 3.6-5.0 Serum or plasma chloride measurement (moles/volume) 103 mmol/L 98-107 Carbon dioxide 23 mmol/L 21-32 Serum or plasma anion gap determination (moles/volume) 12 mmol/L 5-14 Serum or plasma urea nitrogen measurement (mass/volume) 10 mg/dL 7-18 Serum or plasma creatinine measurement (mass/volume) 0.82 mg/dL 0.60-1.30 Serum or plasma urea nitrogen/creatinine mass ratio 12 NRG Serum or plasma creatinine measurement with calculation of estimated glomerular filtration rate > NRG Serum or plasma glucose measurement (mass/volume) 92 mg/dL 70-105 Serum or plasma calcium measurement (mass/volume) 9.7 mg/dL 8.5-10.1 Serum or plasma total bilirubin measurement (mass/volume) 0.4 mg/dL 0.1-1.0 Serum or plasma alkaline phosphatase measurement (enzymatic activity/volume) 85 U/L 40-136 Serum or plasma aspartate aminotransferase measurement (enzymatic activity/ volume) 19 U/L 5-34 Serum or plasma alanine aminotransferase measurement (enzymatic activity/volume ) 16 U/L 0-55 Serum or plasma protein measurement (mass/volume) 7.5 g/dL 6.4-8.2 Serum or plasma albumin measurement (mass/volume) 4.5 g/dL 3.2-4.5 Serum or plasma C reactive protein measurement (mass/volume) - 07/03/17 18:00 Serum or plasma C reactive protein measurement (mass/volume) 0.45 mg /dL 0.00-0.50 Serum or plasma carbamazepine measurement (mass/volume) - 07/03/17 18:00 Serum or plasma carbamazepine measurement (mass/volume) 3.2 ug/mL 4.0-12.0 Bacterial blood culture - 07/03/17 18:00 Bacterial blood culture NG NRG Bacterial blood culture - 07/03/17 19:00 Bacterial blood culture NG NRG Complete blood count (CBC) with automated white blood cell (WBC) differential - 07/04/17 05:41 Blood leukocytes automated count (number/volume) 4.8 10*3/uL 4.3-11.0 Blood erythrocytes automated count (number/volume) 4.24 10*6/uL 4.35-5.85 Venous blood hemoglobin measurement (mass/volume) 13.3 g/dL 11.5-16.0 Blood hematocrit (volume fraction) 39 % 35-52 Automated erythrocyte mean corpuscular volume 91 [foz_us] 80-99 Automated erythrocyte mean corpuscular hemoglobin (mass per erythrocyte) 31 pg 25-34 Automated erythrocyte mean corpuscular hemoglobin concentration measurement ( mass/volume) 34 g/dL 32-36 Automated erythrocyte distribution width ratio 12.6 % 10.0-14.5 Automated blood platelet count (count/volume) 235 10*3/uL 130-400 Automated blood platelet mean volume measurement 8.4 [foz_us] 7.4-10.4 Automated blood neutrophils/100 leukocytes 54 % 42-75 Automated blood lymphocytes/100 leukocytes 31 % 12-44 Blood monocytes/100 leukocytes 10 % 0-12 Automated blood eosinophils/100 leukocytes 4 % 0-10 Automated blood basophils/100 leukocytes 0 % 0-10 Blood neutrophils automated count (number/volume) 2.6 10*3 1.8-7.8 Blood lymphocytes automated count (number/volume) 1.5 10*3 1.0-4.0 Blood monocytes automated count (number/volume) 0.5 10*3 0.0-1.0 Automated eosinophil count 0.2 10*3/uL 0.0-0.3 Automated blood basophil count (count/volume) 0.0 10*3/uL 0.0-0.1 Comprehensive metabolic panel - 07/04/17 05:41 Serum or plasma sodium measurement (moles/volume) 138 mmol/L 135-145 Serum or plasma potassium measurement (moles/volume) 4.1 mmol/L 3.6-5.0 Serum or plasma chloride measurement (moles/volume) 108 mmol/L 98-107 Carbon dioxide 20 mmol/L 21-32 Serum or plasma anion gap determination (moles/volume) 10 mmol/L 5-14 Serum or plasma urea nitrogen measurement (mass/volume) 15 mg/dL 7-18 Serum or plasma creatinine measurement (mass/volume) 0.76 mg/dL 0.60-1.30 Serum or plasma urea nitrogen/creatinine mass ratio 20 NRG Serum or plasma creatinine measurement with calculation of estimated glomerular filtration rate > NRG Serum or plasma glucose measurement (mass/volume) 96 mg/dL 70-105 Serum or plasma calcium measurement (mass/volume) 8.8 mg/dL 8.5-10.1 Serum or plasma total bilirubin measurement (mass/volume) 0.4 mg/dL 0.1-1.0 Serum or plasma alkaline phosphatase measurement (enzymatic activity/volume) 72 U/L 40-136 Serum or plasma aspartate aminotransferase measurement (enzymatic activity/ volume) 10 U/L 5-34 Serum or plasma alanine aminotransferase measurement (enzymatic activity/volume ) 11 U/L 0-55 Serum or plasma protein measurement (mass/volume) 5.8 g/dL 6.4-8.2 Serum or plasma albumin measurement (mass/volume) 3.8 g/dL 3.2-4.5 Methicillin resistant Staphylococcus aureus (MRSA) screening culture - 06:10 Methicillin resistant Staphylococcus aureus (MRSA) screening culture NEG NRG Bacterial urine culture - 08/02/17 13:35 Bacterial urine culture SEE COMMEN NRG COLONY COUNT . NRG FTX;REPORTABLE 30,000 CFU/ML NR FREE TEXT ENTRY 2 SUSCEPTIBILITY REPORTED AT 0906,08-04-17 [facility] Sensitivity Panel - 08/02/17 13:35 Gentamicin susceptibility test by minimum inhibitory concentration < = NRG Trimethoprim/sulfamethoxazole susceptibility test by minimum inhibitoryconcentration <= NRG Levofloxacin susceptibility test by minimum inhibitory concentration <= NRG Ampicillin susceptibility test by minimum inhibitory concentration > NRG Cefazolin susceptibility test by minimum inhibitory concentration 2 NRG Ceftriaxone susceptibility test by minimum inhibitory concentration <= NRG Ciprofloxacin susceptibility test by minimum inhibitory concentration <= NRG Meropenem susceptibility test by minimum inhibitory concentration < = NRG Nitrofurantoin susceptibility test by minimum inhibitory concentration <= NRG Amoxicillin and clavulanate potassium susc MALCOLM = NRG Encounters ACCT No. Visit Date/Time Discharge Status Pt. Type Provider Facility Loc./Unit Complaint [id number] 08/02/2017 12:55:00 08/02/2017 23:59:59 CLS Outpatient MARYSE VIVAS [facility] [id number] 07/03/2017 19:24:00 07/13/2017 09:00:00 DIS Inpatient ROSALINE FLOR DO S [facility] 4TH RECURRENT HERPES ZOSTER INFECTION R FACE [id number] 04/23/2017 11:35:00 04/23/2017 23:59:59 CLS Outpatient SADAF JACOBS MD [facility] RAD THYROID NODULES [id number] 04/04/2017 10:59:00 04/04/2017 23:59:59 CLS Outpatient ROSALINE FLOR DO S [facility] RAD RIGHT SUBCLAVIAN/ VERTEBRAL ARTERY STENOSIS [id number] 01/04/2017 10:53:00 04/04/2017 00:01:00 DIS Outpatient MARYSE VIVAS [facility] ONC [id number] 03/29/2017 07:47:00 03/29/2017 23:59:59 CLS Outpatient ROSALINE FLOR DO [facility] RAD H93.11 [id number] 01/30/2017 11:35:00 01/30/2017 23:59:59 CLS Outpatient SADAF JACOBS MD [facility] RAD LT THYROID NODULE [id number] 01/22/2017 14:12:00 01/22/2017 23:59:59 CLS Outpatient SADAF JACOBS MD [facility] RAD THYROID NODULE [id number] 12/04/2016 08:40:00 12/04/2016 23:59:59 CLS Outpatient ROSALINE FLOR DO [facility] RAD CEPHALGIA,HX OF MALIGNANT MELANOMA [id number] 09/13/2016 14:54:00 10/06/2016 13:04:00 DIS Inpatient MARYSE VIVAS [facility] 4TH HERPES ZOSTER OUTBREAK TO FACE [id number] 04/12/2016 10:00:00 07/11/2016 00:01:00 DIS Outpatient MARYSE VIVAS [facility] ONC [id number] 04/20/2016 16:15:00 04/25/2016 17:30:00 DIS Inpatient MARYSE VIVAS [facility] 4TH SWB HERPES ZOSTER [id number] 04/14/2016 01:15:00 04/20/2016 16:15:00 DIS Inpatient MARYSE VIVAS [facility] 4TH FACIAL SHINGLES W INTRACTABLE PAIN [id number] 10/11/2015 09:53:00 01/09/2016 00:01:00 DIS Outpatient MARYSE VIVAS [facility] ONC [id number] 02/23/2015 11:41:00 05/24/2015 00:01:00 DIS Outpatient MARYSE VIVAS [facility] ONC [id number] 03/09/2015 12:54:00 03/09/2015 23:59:59 CLS Outpatient MARYSE VIVAS [facility] FS [id number] 10/15/2014 14:17:00 11/18/2014 00:01:00 DIS Outpatient MARYSE VIVAS [facility] ONC [id number] 10/27/2014 11:02:00 10/27/2014 23:59:59 CLS Outpatient MARYSE VIVAS [facility] FS [id number] 08/31/2014 11:13:00 08/31/2014 23:59:59 CLS Outpatient MARYSE VIVAS [facility] RAD HX OF PUL NODULE [id number] 07/21/2014 14:03:00 07/21/2014 23:59:59 CLS Outpatient MARYSE VIVAS [facility] FS [id number] 05/19/2014 10:40:00 05/19/2014 23:59:59 CLS Outpatient MARYSE VIVAS [facility] RAD HX OF MALIGNANT MELANOMA [id number] 04/07/2014 10:42:00 04/07/2014 23:59:59 CLS Outpatient MARYSE VIVAS [facility] RAD ABD PAIN, CRAMPING [id number] 03/10/2014 15:08:00 03/10/2014 23:59:59 CLS Outpatient MARYSE VIVAS [facility] FS [id number] 02/14/2014 13:58:00 02/27/2014 16:35:00 DIS Inpatient MARYSE VIVAS [facility] 4TH TIDWELL,SWELLING OF FACE [id number] 02/06/2014 08:52:00 02/07/2014 08:00:00 DIS Outpatient SADAF JACOBS MD [facility] SDC CHRONIC SINUSITIS; HYPERTHROPY TURBINATES [id number] 02/03/2014 20:30:00 02/05/2014 19:00:00 DIS Inpatient MARYSE VIVAS [facility] 4TH R FACIAL LYMPHEDEMA, INTRACTABLE PAIN [id number] 02/04/2014 08:45:00 02/04/2014 23:59:59 CLS Preadmit LAURO HUYNH MD [facility] RAD REOCCURING UTI [id number] 02/02/2014 08:20:00 02/02/2014 23:59:59 CLS Outpatient SADAF JACOBS MD [facility] PREOP CHRONIC SINUSITIS; HYPERTROPHY TURBINATES [id number] 02/02/2014 20:28:00 02/02/2014 22:18:00 DIS Emergency HIRAL PRESTON [facility] ER ALLERGIC REACTION [id number] 12/30/2013 08:22:00 12/30/2013 23:59:59 CLS Outpatient MAISHA PIZANO MD [facility] RAD CHRONIC SINUSITIS [id number] 07/02/2013 03:45:00 09/29/2013 00:01:00 DIS Outpatient MARYSE VIVAS [facility] ONC [id number] 09/03/2013 09:06:00 09/03/2013 23:59:59 CLS Outpatient TYLOR MENDOZA MD [facility] RAD NECK PAIN [id number] 07/08/2013 09:20:00 07/08/2013 23:59:59 CLS Outpatient MARYSE VIVAS [facility] RAD MELANOMA [id number] 07/01/2013 14:45:00 07/08/2013 14:07:00 DIS Outpatient TYLOR MENDOZA MD [facility] REHAB CERVICALGIA [id number] 06/02/2013 12:51:00 06/02/2013 23:59:59 CLS Outpatient MARYSE VIVAS [facility] ONC [id number] 04/29/2013 13:44:00 04/29/2013 17:00:00 DIS Outpatient YOMAIRA MCKENZIE DO [facility] SDC DYSPHAGIA [id number] 04/23/2013 10:51:00 04/23/2013 23:59:59 CLS Outpatient YOMAIRA MCKENZIE DO [facility] PREOP DYSPHAGIA [id number] 01/27/2013 12:19:00 01/27/2013 23:59:59 CLS Outpatient TYLOR MENDOZA MD [facility] CARD THORACALGIA [id number] 12/17/2012 07:49:00 12/17/2012 23:59:59 CLS Outpatient ANA LAURA EDWARDP [facility] RAD MALIGNANT MELANOMA [id number] 12/13/2012 08:01:00 12/13/2012 23:59:59 CLS Outpatient TYLOR MENDOZA MD [facility] CARD DDD LUMBAR [id number] 12/09/2012 13:58:00 12/09/2012 23:59:59 CLS Outpatient ANA LAURA EDWARD SENIOR ENVIRONMENTAL ENGINEER [facility] ONC [id number] 10/02/2012 12:29:00 10/02/2012 23:59:59 CLS Outpatient ALYSIA ARIAS APRN [facility] RAD LUMBAR RADICULOPATHY [id number] 05/08/2014 10:16:00 Document Registration [id number] 04/07/2014 10:42:00 Document Registration [id number] 04/07/2014 10:42:00 Document Registration [id number] 04/07/2014 10:42:00 Document Registration [id number] 04/07/2014 10:42:00 Document Registration [id number] 02/03/2014 14:04:00 Document Registration [id number] 01/21/2014 08:48:00 Document Registration [id number] 09/30/2013 00:00:00 Document Registration [id number] 05/23/2012 14:20:00 Document Registration [id number] 03/22/2012 15:21:00 Document Registration [id number] 01/22/2012 10:34:00 Document Registration [id number] 10/12/2011 10:22:00 Document Registration [id number] 07/11/2011 12:52:00 Document Registration [id number] 06/29/2011 13:51:00 Document Registration [id number] 03/02/2011 13:18:00 Document Registration [id number] 02/03/2011 10:49:00 Document Registration [id number] 02/02/2011 13:32:00 Document Registration [id number] 11/21/2010 09:32:00 Document Registration [id number] 11/09/2010 14:36:00 Document Registration [id number] 08/01/2010 12:59:00 Document Registration [id number] 05/02/2010 14:07:00 Document Registration [id number] 04/29/2010 14:06:00 Document Registration [id number] 04/02/2010 07:51:00 Document Registration [id number] 02/26/2010 19:10:00 Document Registration [id number] 02/25/2010 10:52:00 Document Registration [id number] 02/24/2010 07:20:00 Document Registration [id number] 02/21/2010 15:26:00 Document Registration [id number] 02/01/2010 19:54:00 Document Registration [id number] 01/21/2010 17:18:00 Document Registration [id number] 01/21/2010 14:45:00 Document Registration [id number] 12/13/2009 10:12:00 Document Registration [id number] 09/21/2009 13:30:00 Document Registration [id number] 09/15/2009 13:56:00 Document Registration [id number] 06/25/2009 09:44:00 Document Registration [id number] 03/11/2009 14:06:00 Document Registration [id number] 12/03/2008 10:30:00 Document Registration [id number] 06/04/2008 00:00:00 Document Registration 10/201609/04/2017 14:09:27 09/04/2017 23:59:59 CLS Outpatient Rosaline Flor [id number] 11/19/2015 10:17:34 11/19/2015 23:59:59 CLS Outpatient [id number] 03/02/2016 15:42:00 03/02/2016 23:59:00 [facility] Outpatient Rosaline Flor
--- OUTSIDE RECORDS SUMMARY | 2017-09-22 11:59 | XMS REPORT | Clinical Summary ---
Author Author [facility] Organization [facility] Address Unknown Phone Unavailable Care Team Providers Care Information Technology Coordinator Name Role Phone Faizan Mann MD Unavailable [...] in the Health Information Management department at [phone] for further assistance in locating additional records.[facility] Allergies Active Allergy Reactions Severity Noted Date Comments Caspop-Inak-Sr RASH 02/07/2014 Cixp-Lz-Nbkwutv Promethazine UNKNOWN 04/05/2010 Vancomycin ITCHING 04/06/2010 Current [...]
--- OUTSIDE RECORDS SUMMARY | 2017-09-22 12:06 | XMS REPORT | Continuity of Care Document ---
Author Author [facility] Organization [facility] Address Unknown Phone Unavailable Allergies Active Description Code Type Severity Reaction Onset Reported/Identified Relationship to Patient Clinical Status Yes NKANo Known Allergies NKA Miscellaneous Allergy Unknown N/A 03/16/2008 Yes promethazine [id number] Drug Allergy Unknown N/A 04/13/2016 Yes vancomycin [id number] Drug Allergy Unknown RASH 09/13/2016 Medications There [...] SANGEETHA, MARYSE N Ot E879.2 02/05/2014 SANGEETHA, MARSYE N Ot V10.82 02/07/2014 ARLENE LAM, SADAF [...] 02/17/2014 SANGEETHA, BOBAN N Ot 311 02/17/2014 SANEGETHA, BOBAN N Ot 530.81 02/17/2014 SANGEETHA, BOBAN [...] 02/26/2014 SANGEETHA, BOBAN N Ot 530.81 02/26/2014 SANEGETHA, BOBAN N Ot 553.3 02/26/2014 SANGEETHA, BOBAN [...] 04/07/2014 Ot V67.1 04/07/2014 ANA LAURA EDWARD [employer]ER Ot 054.9 04/07/2014 ANA LAURA EDWARD [employer]ER Ot 529.6 04/07/2014 ANA LAURA EDWARD [employer]OLLER Ot 723.4 04/07/2014 ANA LAURA EDWARD [employer] CONTROLLER Ot V10.82 04/07/2014 ANA LAURA EDWARD [employer] CONTROLLER Ot V58.69 04/07/2014 ANA LAURA EDWARD [employer]OLLER Ot V67.1 04/07/2014 ANA LAURA EDWARD [employer]ER Ot 172.9 04/07/2014 TYLOR MENDOZA MD Ot [...] FO 05/24/2015 SANGEETHAMARYSE N Ot 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 CARE HOME (CURRENT) DRUG THERAPY 05/24/2015 SANGEETHAMARYSE N Ot Z85.820 PERSONAL HISTORY OF MALIGNANT MELANOMA O 10/04/2015 SANGEETHAMARYSE N Ot F17.210 NICOTINE DEPENDENCE, CIGARETTES, UNCOMPL 10/04/2015 SANGEETHAMARYSE SANTIAGO N Ot Z08 ENCNTR FOR FOLLOW-UP EXAM AFTER TRTMT FO 10/04/2015 MARYSE VIVAS N Ot 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 HR PAYROLL COORDINATOR (CURRENT) DRUG THERAPY 10/04/2015 MARYSE VIVAS Amrita Ot Z85.820 PERSONAL HISTORY OF MALIGNANT MELANOMA O 11/04/2015 MARYSE VIVAS Amrita Ot F17.210 NICOTINE DEPENDENCE, CIGARETTES, UNCOMPL 11/04/2015 MARYSE VIVAS Amrita Ot Z08 ENCNTR FOR FOLLOW-UP EXAM AFTER TRTMT FO 11/04/2015 MARYSE VIVAS Amrita Ot 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 HR PAYROLL COORDINATOR (CURRENT) DRUG THERAPY 11/04/2015 MARYSE VIVAS Amrita Ot Z85.820 PERSONAL HISTORY OF MALIGNANT MELANOMA O 01/09/2016 MARYSE VIVAS Amrita Ot F17.210 NICOTINE DEPENDENCE, CIGARETTES, UNCOMPL 01/09/2016 MARYSE VIVAS Amrita Ot Z08 ENCNTR FOR FOLLOW-UP EXAM AFTER TRTMT FO 01/09/2016 MARYSE VIVAS Amrita Ot 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 HR PAYROLL COORDINATOR (CURRENT) DRUG THERAPY 01/09/2016 MARYSE VIVAS Amrita Ot Z85.820 PERSONAL HISTORY OF MALIGNANT MELANOMA O 04/10/2016 MARYSE VIVAS Amrita Ot F17.210 NICOTINE DEPENDENCE, CIGARETTES, UNCOMPL 04/10/2016 MARYSE VIVAS N Ot Z08 ENCNTR FOR FOLLOW-UP EXAM AFTER TRTMT FO 04/10/2016 MARYSE VIVAS Amrita Ot 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 CARE HOME (CURRENT) DRUG THERAPY 04/10/2016 MARYSE VIVAS Amrita Ot Z85.820 PERSONAL HISTORY OF MALIGNANT MELANOMA O 04/13/2016 MARYSE VIVAS Amrita Ot F17.210 NICOTINE DEPENDENCE, CIGARETTES, UNCOMPL 04/13/2016 MARYSE VIVAS Amrita Ot Z08 ENCNTR FOR FOLLOW-UP EXAM AFTER TRTMT FO 04/13/2016 MARYSE VIVAS Amrita Ot 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 CARE HOME (CURRENT) DRUG THERAPY 04/13/2016 MARYSE VIVAS Amrita [...] V67.1 RADIOTHERAPY FOLLOW-UP 04/14/2016 ANA LAURA EDWARD [employer]ER Ot 054.9 HERPES SIMPLEX NOS 04/14/2016 ANA LAURA EDWARD [employer]OLLER Ot 529.6 GLOSSODYNIA 04/14/2016 ANA LAURA EDWARD [employer]ER Ot 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 NEURITIS NOS 04/14/2016 ANA LAURA DEWARD [employer] CONTROLLER Ot V10.82 HX-MALIG SKIN MELANOMA 04/14/2016 ANA LAURA EDWARD [employer] CONTROLLER Ot V58.69 OTH MED,LT,CURRENT USE 04/14/2016 ANA LAURA EDWARD [employer]OLLER Ot V67.1 RADIOTHERAPY FOLLOW-UP 04/14/2016 ANA LAURA EDWARD [employer]OLLER Ot 172.9 MALIG MELANOMA SKIN NOS 04/14/2016 [...] TURBINAT 04/14/2016 SADAF JACOBS MD Ot V72.81 [id number] CARDIOVASCULAR 04/14/2016 SADAF JACOBS MD Ot V72.83 [...] FO 04/14/2016 MARYSE VIVAS Ot 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 CARE HOME (CURRENT) DRUG THERAPY 04/14/2016 MARYSE VIVAS N [...] FO 04/24/2016 MARYSE VIVAS Ot 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 HR PAYROLL COORDINATOR (CURRENT) DRUG THERAPY 04/24/2016 MARYSE VIVAS [...] FO 05/10/2016 MARYSE VIVAS Ot 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 CARE HOME (CURRENT) DRUG THERAPY 05/10/2016 MARYSE VIVAS Ot Z85.820 PERSONAL HISTORY OF MALIGNANT MELANOMA O 07/11/2016 MAYRSE VIVAS Ot F17.210 NICOTINE DEPENDENCE, CIGARETTES, UNCOMPL 07/11/2016 MARYSE VIVAS Ot Z08 ENCNTR FOR FOLLOW-UP EXAM AFTER TRTMT FO 07/11/2016 MARYSE VIVAS Ot 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 CARE HOME (CURRENT) DRUG THERAPY 07/11/2016 MARYSE VIVAS Ot Z85.820 PERSONAL HISTORY OF MALIGNANT MELANOMA O 09/13/2016 MARYSE VIVAS Ot F17.210 NICOTINE DEPENDENCE, CIGARETTES, UNCOMPL 09/13/2016 MARYSE VIVAS Ot Z08 ENCNTR FOR FOLLOW-UP EXAM AFTER TRTMT FO 09/13/2016 MARYSE VIVAS Ot 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 CARE HOME (CURRENT) DRUG THERAPY 09/13/2016 MARYSE VIVAS Ot [...] VIVAS Ot B00.9 HERPESVIRAL INFECTION, UNSPECIFIED 10/06/2016 MRAYSE VIVAS Ot B02.9 ZOSTER WITHOUT COMPLICATIONS 10/06/2016 [...] V67.1 RADIOTHERAPY FOLLOW-UP 12/04/2016 ANA LAURA EDWARD [employer]OLLER Ot 054.9 HERPES SIMPLEX NOS 12/04/2016 ANA LAURA EDWARD [employer] CONTROLLER Ot 529.6 GLOSSODYNIA 12/04/2016 ANA LAURA EDWARD [employer] CONTROLLER Ot 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 NEURITIS NOS 12/04/2016 ANA LAURA EDWARD [employer] CONTROLLER Ot V10.82 HX-MALIG SKIN MELANOMA 12/04/2016 ANA LAURA EDWARD [employer] CONTROLLER Ot V58.69 OTH MED,LT,CURRENT USE 12/04/2016 ANA LAURA EDWARD [employer] CONTROLLER Ot V67.1 RADIOTHERAPY FOLLOW-UP 12/04/2016 ANA LAURA EDWARD [employer] CONTROLLER Ot 172.9 MALIG MELANOMA SKIN NOS 12/04/2016 [...] 12/04/2016 ARLENE LAM, SADAF Mcdaniel Ot V72.81 [id number] CARDIOVASCULAR 12/04/2016 SADAF JACOBS MD Ot V72.83 [...] 12/04/2016 MARYSE VIVAS Amrita Ot 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 CARE HOME (CURRENT) DRUG THERAPY 12/04/2016 MARYSE VIVAS Amrita [...] 01/05/2017 MARYSE VIVAS Amrita Ot 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 CARE HOME (CURRENT) DRUG THERAPY 01/05/2017 MARYSE VIVAS Amrita [...] FOLLOW-UP EXAM AFTER TRTMT FO 01/16/2017 MARYSE VIAVS N Ot 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 CARE HOME (CURRENT) DRUG THERAPY 01/16/2017 SANGEETHA STEFFANIEJE N [...] 02/01/2017 SANGEETHA MARYSE Crowe Ot 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 CARE HOME (CURRENT) DRUG THERAPY 02/01/2017 SANGEETHAMARYSE N Ot [...] Ot F17.210 NICOTINE DEPENDENCE, CIGARETTES, UNCOMPL 04/04/2017 MRAYSE VIVAS Ot G62.9 POLYNEUROPATHY, UNSPECIFIED 04/04/2017 MARYSE VIVAS Ot Z08 ENCNTR FOR FOLLOW-UP EXAM AFTER TRTMT FO 04/04/2017 MARYSE VIVAS Ot 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 HR PAYROLL COORDINATOR (CURRENT) DRUG THERAPY 04/04/2017 MARYSE VIVAS [...] HERPES SIMPLEX NOS 04/04/2017 ANA LAURA EDWARD [employer]FFIC CONTROLLER Ot 529.6 GLOSSODYNIA 04/04/2017 ANA LAURA EDWARD [employer] CONTROLLER Ot 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 NEURITIS NOS 04/04/2017 ANA LAURA EDWARDP Ot V10.82 HX-MALIG SKIN MELANOMA 04/04/2017 ANA LAURA EDWARD Ot V58.69 OTH MED,LT,CURRENT USE 04/04/2017 ANA LAURA EDWARD [employer]FF[employer] CONTROLLER Ot V67.1 RADIOTHERAPY FOLLOW-UP 04/04/2017 ANA LAURA [...] 04/04/2017 ARLENE LAM, SADAF Mcdaniel Ot V72.81 [id number] CARDIOVASCULAR 04/04/2017 ARLENE LAM, SADAF Mcdaniel Ot [...] MARYSE VIVAS Ot 723.1 CERVICALGIA 04/04/2017 MARYSE IVVAS Ot V10.82 HX-MALIG SKIN MELANOMA 04/04/2017 MARYSE [...] FO 04/04/2017 MARYSE VIVAS Ot 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 CARE HOME (CURRENT) DRUG THERAPY 04/04/2017 MARYSE VIVAS Ot [...] FO 04/05/2017 MARYSE VIVAS Ot 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 CARE HOME (CURRENT) DRUG THERAPY 04/05/2017 MARYSE VIVAS Ot [...] V67.1 RADIOTHERAPY FOLLOW-UP 05/11/2017 ANA LAURA EDWARD [employer] CONTROLLER Ot 054.9 HERPES SIMPLEX NOS 05/11/2017 ANA LAURA EDWARD [employer] CONTROLLER Ot 529.6 GLOSSODYNIA 05/11/2017 ANA LAURA EDWARD [employer]FFIC CONTROLLER Ot 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 NEURITIS NOS 05/11/2017 ANA LAURA EDWARD [employer] TRAFFIC CONTROLLER Ot V10.82 HX-MALIG SKIN MELANOMA 05/11/2017 ANA LAURA EDWARD [employer]FFIC CONTROLLER Ot V58.69 OTH MED,LT,CURRENT USE 05/11/2017 ANA LAURA EDWARD [employer] TRAFFIC CONTROLLER Ot V67.1 RADIOTHERAPY FOLLOW-UP 05/11/2017 EDWARDANA LAURA Rucker Chaim RADAR AIR TRAFFIC CONTROLLER Ot 172.9 MALIG MELANOMA SKIN NOS 05/11/2017 TYLOR MENDOZA MD Ot 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 05/11/2017 TYLOR MENDOZA MD Ot 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 DISC DEGEN 05/11/2017 TYLOR EMNDOZA MD Ot 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 NEURITIS NOS 05/11/2017 [...] 05/11/2017 ARLENE LAM, SADAF Mcdaniel Ot V72.81 [id number] CARDIOVASCULAR 05/11/2017 ARLENE LAM, SADAF P Ot [...] FO 05/16/2017 MARYSE VIVAS Ot 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 CARE HOME (CURRENT) DRUG THERAPY 05/16/2017 MARYSE VIVAS Ot [...] V67.1 RADIOTHERAPY FOLLOW-UP 05/31/2017 ANA LAURA EDWARD [employer]FF[employer] CONTROLLER Ot 054.9 HERPES SIMPLEX NOS 05/31/2017 ANA LAURA EDWARD [employer] TRAFFIC CONTROLLER Ot 529.6 GLOSSODYNIA 05/31/2017 ANA LAURA EDWARD [employer] TRAFFIC CONTROLLER Ot 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 NEURITIS NOS 05/31/2017 AAN LAURA EDWARD RADAR [employer] TRAFFIC CONTROLLER Ot V10.82 HX-MALIG SKIN MELANOMA 05/31/2017 ANA LAURA EDWARD [employer] TRAFFIC CONTROLLER Ot V58.69 OTH MED,LT,CURRENT USE 05/31/2017 ANA LAURA EDWARD [employer] TRAFFIC CONTROLLER Ot V67.1 RADIOTHERAPY FOLLOW-UP 05/31/2017 ANA LAURA EDWARD [employer]FFIC CONTROLLER Ot 172.9 MALIG MELANOMA SKIN NOS 05/31/2017 [...] 05/31/2017 ARLENE LAM, SADAF Mcdaniel Ot V72.81 [id number] CARDIOVASCULAR 05/31/2017 ARLENE LAM, SADAF Mcdaniel Ot [...] FO 05/31/2017 MARYSE VIVAS Ot 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 CARE HOME (CURRENT) DRUG THERAPY 05/31/2017 MARYSE VIVAS Ot [...] FO 05/31/2017 MARYSE VIVAS Ot 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 CARE HOME (CURRENT) DRUG THERAPY 05/31/2017 MARYSE VIVAS Ot Z85.820 PERSONAL HISTORY OF MALIGNANT MELANOMA O 05/31/2017 ARLENE LAM, SADAF Mcdaniel Ot E04.2 NONTOXIC MULTINODULAR GOITER 07/03/2017 ALYSIA ARIAS APRN Ot 729.2 NEURALGIA/NEURITIS NOS 07/03/2017 Ot 723.1 CERVICALGIA 07/03/2017 Ot V10.82 HX-MALIG SKIN MELANOMA 07/03/2017 Ot V58.69 OTH MED,LT, CURRENT USE 07/03/2017 Ot V67.1 RADIOTHERAPY FOLLOW-UP 07/03/2017 ANA LAURA EDWARD [employer]FFIC CONTROLLER Ot 054.9 HERPES SIMPLEX NOS 07/03/2017 ANA LAURA EDWARD [employer] TRAFFIC CONTROLLER Ot 529.6 GLOSSODYNIA 07/03/2017 ANA LAURA EDWARD RADAR [employer] TRAFFIC CONTROLLER Ot 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 NEURITIS NOS 07/03/2017 ANA LAURA EDWARD RADAR [employer] TRAFFIC CONTROLLER Ot V10.82 HX-MALIG SKIN MELANOMA 07/03/2017 ANA LAURA EDWARD [employer] TRAFFIC CONTROLLER Ot V58.69 OTH MED,LT,CURRENT USE 07/03/2017 ANA LAURA EDWARD RADAR [employer] TRAFFIC CONTROLLER Ot V67.1 RADIOTHERAPY FOLLOW-UP 07/03/2017 EDWARD, HILAH S RADAR AIR TRAFFIC CONTROLLER Ot 172.9 MALIG MELANOMA SKIN NOS 07/03/2017 [...] TURBINAT 07/03/2017 SADAF JACOBS MD Ot V72.81 [id number] CARDIOVASCULAR 07/03/2017 SADAF JACOBS MD Ot V72.83 [...] FOLLOW-UP EXAM AFTER TRTMT FO 07/03/2017 MARYSE VVIAS Ot 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 CARE HOME (CURRENT) DRUG THERAPY 07/03/2017 MARYSE VIVAS Ot [...] Ot Z92.3 PERSONAL HISTORY OF IRRADIATION 07/05/2017 MEIRSAN CARLOS [facility] ROSALINE S Ot 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 07/05/2017 MARISOL ROSALINE S Ot B02.9 ZOSTER WITHOUT COMPLICATIONS 07/05/2017 MEIREUSEBIO ROASLINE S Ot F32.9 MAJOR DEPRESSIVE DISORDER, SINGLE EPISOD 07/05/2017 MARISOL ROSALINE S Ot F41.9 ANXIETY DISORDER, UNSPECIFIED 07/05/2017 MARISOLMADHU LEACH ROSALINE S Ot G43.909 MIGRAINE, UNSP, NOT INTRACTABLE, [...] Z92.21 PERSONAL HISTORY OF ANTINEOPLASTIC CHEMO 07/05/2017 MEIREUSEBIO ROSALINE S Ot Z92.3 PERSONAL HISTORY OF IRRADIATION 07/05/2017 MARISOLMADHU LEACHROSALINE Ot 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 07/05/2017 MARISOLMADHU LEACHROSALINE Ot B02.9 ZOSTER WITHOUT COMPLICATIONS 07/05/2017 MARISOLMADHU ROSALINE LEACH Ot F32.9 MAJOR DEPRESSIVE DISORDER, SINGLE EPISOD 07/05/2017 MARISOL ROSALINE LEACH Ot F41.9 ANXIETY DISORDER, UNSPECIFIED [facility] G43.909 MIGRAINE, UNSP, NOT INTRACTABLE, WITHOUT 07/05/[facility] LEACH Chaim Ot I10 ESSENTIAL (PRIMARY) HYPERTENSION 07/05/2017 [facility] ROSALINE LEACH Chaim Ot K21.9 GASTRO-ESOPHAGEAL REFLUX DISEASE WITHOUT 07/05/[facility] Chaim Ot K44.9 DIAPHRAGMATIC HERNIA WITHOUT OBSTRUCTION 07/05/2017 [facility] DO ROSALINE S Ot K58.9 IRRITABLE BOWEL SYNDROME WITHOUT DIARRHE 07/05/2017 [facility] ALBERROSALINE Chaim Ot M54.10 RADICULOPATHY, SITE UNSPECIFIED 07/05/2017 MEIRSAN CARLOS [facility] ROSALINE LEACH Ot M79.7 FIBROMYALGIA 07/05/2017 MEIRSAN CARLOS [facility] ROSALINE LEACH Chaim Ot R13.10 DYSPHAGIA, UNSPECIFIED 07/05/2017 MEIRSAN CARLOS [facility] ROSALINE LEACH Chaim Ot Z85.820 PERSONAL HISTORY OF MALIGNANT MELANOMA O 07/05/2017 MEIRSAN CARLOS [facility] ROSALINE Rucker Ot Z92.21 PERSONAL HISTORY OF ANTINEOPLASTIC CHEMO 07/05/2017 [facility] ROSALINE Rucker Ot Z92.3 PERSONAL HISTORY OF IRRADIATION 07/10/2017 MEIRSAN CARLOS [facility] ROSALINE LEACH Chaim Ot 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 07/10/2017 MEIRSAN CARLOS [facility] ROSALINE LEACH Chaim Ot B02.9 ZOSTER WITHOUT COMPLICATIONS 07/10/2017 MEIRSAN CARLOS [facility] ROSALINE LEACH Chaim Ot F32.9 MAJOR DEPRESSIVE DISORDER, SINGLE EPISOD 07/10/2017 MEIRSAN [facility]LOS [facility] ALBER LEACHROSALINE Chaim Ot F41.9 ANXIETY DISORDER, UNSPECIFIED 07/10/2017 [facility] ALBER LEACHROSALINE Chaim Ot G43.909 MIGRAINE, UNSP, NOT INTRACTABLE, WITHOUT 07/10/2017 [facility] ROSALINE LEACH Chaim Ot I10 ESSENTIAL (PRIMARY) HYPERTENSION 07/10/2017 MEIRSAN CARLOS [facility] ROSALINE LEACH Chaim Ot K21.9 GASTRO-ESOPHAGEAL REFLUX DISEASE WITHOUT 07/10[facility] Chaim Ot K44.9 DIAPHRAGMATIC HERNIA WITHOUT OBSTRUCTION 07/10/2017 [facility] ROSALINE LEACH Chaim Ot K58.9 IRRITABLE [...] FO 08/30/2017 MARYSE VIVAS Ot 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 CARE HOME (CURRENT) DRUG THERAPY 08/30/2017 MARYSE VIVAS Ot Z85.820 PERSONAL HISTORY OF MALIGNANT MELANOMA O Procedures Code Description Performed By Performed On 57.32 CYSTOSCOPY NEC 02/23/2014 70.21 VAGINOSCOPY 02/23/2014 [id number] INSERTION OF INFUSION DEV INTO SUP VENA 04/17/2016 [id number] INSERTION OF INFUSION DEV INTO SUP VENA 09/18/2016 [id number] INSERTION OF INFUSION DEVICE INTO R [facility] 07/06/2017 [id number] INSERT OF TUNNEL VAD INTO CHEST SUBCU/FA [...] 5-8.5 Urine-Protein 2+ Negative Urine-RBC 20-40/HPF Urine-Specific [place] >=1.030 1.000-1.030 Urine-WBC TNTC Urobilinogen 1.0 E.U./dL 0.2-1.0 Bacterial blood culture - 04/13/16 23:35 Bacterial blood culture [facility] Complete blood count (CBC) with [...] Automated blood platelet mean volume measurement 8.7 [[email or web address]] 7.4-10.4 Automated blood neutrophils/100 leukocytes 54 % [...] 10/03 16:00 NRG QUANTITY OF GROWTH . [facility] Bacterial blood culture SEE COMMEN [facility] Bacterial susceptibility panel - 10/02/16 00:40 Gentamicin [...] susceptibility test by minimum inhibitory concentration - [facility] Cefepime susceptibility test by minimum inhibitory concentration <= NRG Bacterial blood culture - 10/02/16 01:05 Bacterial blood culture [facility] Complete blood count (CBC) with [...] (T4) free measurement (mass/volume) 0.95 ng/dL 0.70-1.48 [id number] - 03/29/17 08:02 Serum or plasma urea [...] TEXT ENTRY 2 SUS[facility] - 08/02/17 13:35 Gentamicin susceptibility [...] Status Pt. Type Provider Facility Loc./Unit Complaint [id number] 08/02/2017 12:55:00 08/02/2017 23:59:59 CLS Outpatient MARYSE VIVAS [facility] [id number] 07/03/2017 19:24:00 07/13/2017 09:00:00 DIS Inpatient ROSALINE FLOR DO S [facility] 4TH RECURRENT HERPES ZOSTER INFECTION R FACE [id number] 04/23/2017 11:35:00 04/23/2017 23:59:59 CLS Outpatient SADAF JACOBS MD [facility] RAD THYROID NODULES [id number] 04/04/2017 10:59:00 04/04/2017 23:59:59 CLS Outpatient ROSALINE FLOR DO S [facility] RAD RIGHT SUBCLAVIAN/ VERTEBRAL ARTERY STENOSIS [id number] 01/04/2017 10:53:00 04/04/2017 00:01:00 DIS Outpatient MARYSE VIVAS [facility] ONC [id number] 03/29/2017 07:47:00 03/29/2017 23:59:59 CLS Outpatient ROSALINE FLOR DO [facility] RAD H93.11 [id number] 01/30/2017 11:35:00 01/30/2017 23:59:59 CLS Outpatient SADAF JACOBS MD [facility] RAD LT THYROID NODULE [id number] 01/22/2017 14:12:00 01/22/2017 23:59:59 CLS Outpatient SADAF JACOBS MD [facility] RAD THYROID NODULE [id number] 12/04/2016 08:40:00 12/04/2016 23:59:59 CLS Outpatient ROSALINE FLOR DO [facility] RAD CEPHALGIA,HX OF MALIGNANT MELANOMA [id number] 09/13/2016 14:54:00 10/06/2016 13:04:00 DIS Inpatient MARYSE VIVAS [facility] 4TH HERPES ZOSTER OUTBREAK TO FACE [id number] 04/12/2016 10:00:00 07/11/2016 00:01:00 DIS Outpatient MARYSE VIVAS [facility] ONC [id number] 04/20/2016 16:15:00 04/25/2016 17:30:00 DIS Inpatient MARYSE VIVAS [facility] 4TH SWB HERPES ZOSTER [id number] 04/14/2016 01:15:00 04/20/2016 16:15:00 DIS Inpatient MARYSE VIVAS [facility] 4TH FACIAL SHINGLES W INTRACTABLE PAIN [id number] 10/11/2015 09:53:00 01/09/2016 00:01:00 DIS Outpatient MARYSE VIVAS [facility] ONC [id number] 02/23/2015 11:41:00 05/24/2015 00:01:00 DIS Outpatient MARYSE VIVAS [facility] ONC [id number] 03/09/2015 12:54:00 03/09/2015 23:59:59 CLS Outpatient MARYSE VIVAS [facility] FS [id number] 10/15/2014 14:17:00 11/18/2014 00:01:00 DIS Outpatient MARYSE VIVAS [facility] ONC [id number] 10/27/2014 11:02:00 10/27/2014 23:59:59 CLS Outpatient MARYSE VIVAS [facility] FS [id number] 08/31/2014 11:13:00 08/31/2014 23:59:59 CLS Outpatient MARYSE VIVAS [facility] RAD HX OF PUL NODULE [id number] 07/21/2014 14:03:00 07/21/2014 23:59:59 CLS Outpatient MARYSE VIVAS [facility] FS [id number] 05/19/2014 10:40:00 05/19/2014 23:59:59 CLS Outpatient MARYSE VIVAS [facility] RAD HX OF MALIGNANT MELANOMA [id number] 04/07/2014 10:42:00 04/07/2014 23:59:59 CLS Outpatient MARYSE VIVAS [facility] RAD ABD PAIN, CRAMPING [id number] 03/10/2014 15:08:00 03/10/2014 23:59:59 CLS Outpatient MARYSE VIVAS [facility] FS [id number] 02/14/2014 13:58:00 02/27/2014 16:35:00 DIS Inpatient MARYSE VIVAS [facility] 4TH TIDWELL,SWELLING OF FACE [id number] 02/06/2014 08:52:00 02/07/2014 08:00:00 DIS Outpatient SADAF JACOBS MD [facility] SDC CHRONIC SINUSITIS; HYPERTHROPY TURBINATES [id number] 02/03/2014 20:30:00 02/05/2014 19:00:00 DIS Inpatient MARYSE VIVAS [facility] 4TH R FACIAL LYMPHEDEMA, INTRACTABLE PAIN [id number] 02/04/2014 08:45:00 02/04/2014 23:59:59 CLS Preadmit LAURO HUYNH MD [facility] RAD REOCCURING UTI [id number] 02/02/2014 08:20:00 02/02/2014 23:59:59 CLS Outpatient SADAF JACOBS MD [facility] PREOP CHRONIC SINUSITIS; HYPERTROPHY TURBINATES [id number] 02/02/2014 20:28:00 02/02/2014 22:18:00 DIS Emergency HIRAL PRESTON [facility] ER ALLERGIC REACTION [id number] 12/30/2013 08:22:00 12/30/2013 23:59:59 CLS Outpatient MAISHA PIZANO MD [facility] RAD CHRONIC SINUSITIS [id number] 07/02/2013 03:45:00 09/29/2013 00:01:00 DIS Outpatient MARYSE VIVAS [facility] ONC [id number] 09/03/2013 09:06:00 09/03/2013 23:59:59 CLS Outpatient TYLOR MENDOZA MD [facility] RAD NECK PAIN [id number] 07/08/2013 09:20:00 07/08/2013 23:59:59 CLS Outpatient MARYSE VIVAS [facility] RAD MELANOMA [id number] 07/01/2013 14:45:00 07/08/2013 14:07:00 DIS Outpatient TYLOR MENDOZA MD [facility] REHAB CERVICALGIA [id number] 06/02/2013 12:51:00 06/02/2013 23:59:59 CLS Outpatient MARYSE VIVAS [facility] ONC [id number] 04/29/2013 13:44:00 04/29/2013 17:00:00 DIS Outpatient YOMAIRA MCKENZIE DO [facility] SDC DYSPHAGIA [id number] 04/23/2013 10:51:00 04/23/2013 23:59:59 CLS Outpatient YOMAIRA MCKENZIE DO [facility] PREOP DYSPHAGIA [id number] 01/27/2013 12:19:00 01/27/2013 23:59:59 CLS Outpatient TYLOR MENDOZA MD [facility] CARD THORACALGIA [id number] 12/17/2012 07:49:00 12/17/2012 23:59:59 CLS Outpatient ANA LAURA EDWARDP [facility] RAD MALIGNANT MELANOMA [id number] 12/13/2012 08:01:00 12/13/2012 23:59:59 CLS Outpatient TYLOR MENDOZA MD [facility] CARD DDD LUMBAR [id number] 12/09/2012 13:58:00 12/09/2012 23:59:59 CLS Outpatient ANA LAURA EDWARD [employer]AR [employer] [facility] ONC [id number] 10/02/2012 12:29:00 10/02/2012 23:59:59 CLS Outpatient ALYSIA ARIAS APRN [facility] RAD LUMBAR RADICULOPATHY [id number] 05/08/2014 10:16:00 Document Registration [id number] 04/07/2014 10:42:00 Document Registration [id number] 04/07/2014 10:42:00 Document Registration [id number] 04/07/2014 10:42:00 Document Registration [id number] 04/07/2014 10:42:00 Document Registration [id number] 02/03/2014 14:04:00 Document Registration [id number] 01/21/2014 08:48:00 Document Registration [id number] 09/30/2013 00:00:00 Document Registration [id number] 05/23/2012 14:20:00 Document Registration [id number] 03/22/2012 15:21:00 Document Registration [id number] 01/22/2012 10:34:00 Document Registration [id number] 10/12/2011 10:22:00 Document Registration [id number] 07/11/2011 12:52:00 Document Registration [id number] 06/29/2011 13:51:00 Document Registration [id number] 03/02/2011 13:18:00 Document Registration [id number] 02/03/2011 10:49:00 Document Registration [id number] 02/02/2011 13:32:00 Document Registration [id number] 11/21/2010 09:32:00 Document Registration [id number] 11/09/2010 14:36:00 Document Registration [id number] 08/01/2010 12:59:00 Document Registration [id number] 05/02/2010 14:07:00 Document Registration [id number] 04/29/2010 14:06:00 Document Registration [id number] 04/02/2010 07:51:00 Document Registration [id number] 02/26/2010 19:10:00 Document Registration [id number] 02/25/2010 10:52:00 Document Registration [id number] 02/24/2010 07:20:00 Document Registration [id number] 02/21/2010 15:26:00 Document Registration [id number] 02/01/2010 19:54:00 Document Registration [id number] 01/21/2010 17:18:00 Document Registration [id number] 01/21/2010 14:45:00 Document Registration [id number] 12/13/2009 10:12:00 Document Registration [id number] 09/21/2009 13:30:00 Document Registration [id number] 09/15/2009 13:56:00 Document Registration [id number] 06/25/2009 09:44:00 Document Registration [id number] 03/11/2009 14:06:00 Document Registration [id number] 12/03/2008 10:30:00 Document Registration [id number] 06/04/2008 00:00:00 Document Registration 10/201609/04/2017 14:09:27 09/04/2017 23:59:59 CLS Outpatient Rosaline Flor 5923 11/19/2015 10:17:34 11/19/2015 23:59:59 CLS Outpatient [id number] 03/02/2016 15:42:00 03/02/2016 23:59:00 [facility] Outpatient Rosaline Flor
[2017-09-22 12:45] VITALS: BP 125/77
[2017-09-22 16:02] VITALS: BP 118/72
[2017-09-22 19:34] VITALS: BP 149/86
[2017-09-22] MEDS: carBAMazepine 200 MG (TEGretol) TAB PO SCH (21:01)
[2017-09-22] MEDS: ZOLPIDEM 5 MG (AMBIEN) TAB PO PRN (21:01)
[2017-09-23] VITALS: BP 131/75
[2017-09-23 03:58] VITALS: BP 108/78
[2017-09-23] MEDS: ACYCLOVIR 800 MG/NS 250 ML IVPB IV SCH ×6 (05:32→21:55)
[2017-09-23] MEDS: CATHETER FLUSH 10 ML SYR IV SCH ×3 (06:35→20:21)
[2017-09-23 08:00] VITALS: BP 122/76
[2017-09-23] MEDS: VITAMIN D3 5,000 UNITS (CHOLECALCIFEROL ) CAPSULE PO SCH (08:15)
[2017-09-23] MEDS: DULoxetine 30 MG (CYMBALTA) CAP PO SCH (08:15)
--- NOTE | 2017-09-23 10:24 | Progress Note-Hospitalist ---
Subjective HPI/CC On Admission Date Seen by Provider: Sep 23, 2017 Time Seen by Provider: 10:15 Mrs. 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 She reports this is likely her 18th admission for her usual stereotypical symptoms which began with tingling and significant itching involving the right side of her face. She's been on suppressive acyclovir 4 mg twice a day the she states she has been compliant with and was returning from the [facility] when symptoms began. She took a 1 g Valtrex tablets but in 20 minutes until progression of right facial swelling and itching prompting her to present to the emergency room. She was last admitted in June for the same symptoms which did progress to vesiculation. She been relatively well otherwise complaining of some nonspecific lightheadedness divide denying overt vertiginous symptoms for the past month present for several days she had actually had several good days allowing her to go to the [facility] of the evening of her admission. She believes it IV acyclovir does attenuate her symptoms and did require hospital stay over a week in duration in June. Patient received a dose of IV acyclovir and upon my arrival there did not appear to be evidence for significant swelling. Past medical history is significant for melanoma on the right neck that required radical neck dissection over 15 years ago. Approximately a year later she had isolated met to the abdomen for which she underwent wide resection. The time of her original diagnosis she completed interferon therapy has been on active surveillance with no evidence for recurrence for roughly the last 14-15 years. Roughly 6 years ago she started having the above symptoms attributed to herpetic infection. She does not recall if viral cultures have been performed and I could not find any evidence for virologic results for herpes zoster or simplex in our electronic medical record. Subjective/Events-last exam Patient was up walking the halls upon my arrival. She reports she still having more tingling than baseline and the right side of her face but has not had any recurrence of edema chills fever erythema or fasciculation. She voices no other complaints. Objective Exam Vital Signs Vital Signs Date Time Temp Pulse Resp B/P (MAP) Pulse Ox O2 Delivery O2 Flow Rate FiO2 09/23/17 08:00 97.4 74 20 122/76 (91) 96 Room Air Capillary Refill : Less Than 3 Seconds General Appearance: No Apparent Distress, WD/WN HEENT: Other (No evidence for erythema or induration and no hip esthesia noted involving the right cheek her nose. There is no evidence for conjunctival injection and no evidence for preauricular adenopathy. Patient at baseline level of right facial fullness compared to left status post right radical neck) Respiratory: Chest Non Tender, Lungs Clear, Normal Breath Sounds, No Accessory Muscle Use, No Respiratory Distress Cardiovascular: Regular Rate, Rhythm, No Edema, No Gallop, No JVD, No Murmur, Normal Peripheral Pulses Results/Procedures Lab Patient resulted labs reviewed. Assessment/Plan Assessment and Plan Assess & Plan/Chief Complaint 1. Probable recurrent herpetic infection reportedly herpes zoster on past biopsy over 6 years ago at . Disease all was involved this in this patient the right middle trigeminal branch. In the past when she still has more tingling than baseline and she has been sent home early only to return with full blown vesiculation erythema and edema currently not present. For this reason we'll continue IV acyclovir and defer discharge. Discussed with the patient that the next time she has a significant enough outbreak to cause fasciculation culturing the fluid to see if it indeed grows out herpes virus. Also advised Shringrix vaccination if okay with Dr. Rendon. While due to age and is off label discussed that she really has nothing to lose of been short- term local reaction with redness and soreness at the injection site typically only lasting for several day managed with ice and anti-inflammatory medication should it occur. Clinical Quality Measures DVT/VTE Risk/Contraindication: Risk Factor Score Per Nursin RFS Level Per Nursing on Admit: 2=Moderate DIEGO RODGERS MD Sep 23, 2017 10:24
[2017-09-23 12:00] VITALS: BP 127/79
[2017-09-23 16:35] VITALS: BP 117/78
[2017-09-23] MEDS: KETOROLAC 15 MG/ML VIAL IV PRN (20:21)
[2017-09-23 20:58] VITALS: BP 123/79
[2017-09-23] MEDS: carBAMazepine 200 MG (TEGretol) TAB PO SCH (21:52)
[2017-09-23] MEDS: ZOLPIDEM 5 MG (AMBIEN) TAB PO PRN (22:00)
[2017-09-24 00:55] VITALS: BP 118/60
[2017-09-24 03:51] VITALS: BP 114/79
[2017-09-24] MEDS: ACYCLOVIR 800 MG/NS 250 ML IVPB IV SCH ×6 (05:59→21:52)
[2017-09-24] MEDS: CATHETER FLUSH 10 ML SYR IV SCH ×3 (06:00→21:52)
[2017-09-24] MEDS: VITAMIN D3 5,000 UNITS (CHOLECALCIFEROL ) CAPSULE PO SCH (08:42)
[2017-09-24] MEDS: KETOROLAC 15 MG/ML VIAL IV PRN ×2 (08:42→23:38)
[2017-09-24] MEDS: DULoxetine 30 MG (CYMBALTA) CAP PO SCH (08:42)
[2017-09-24 09:00] VITALS: BP 119/70
--- NOTE | 2017-09-24 09:14 | Progress Note ---
Subjective Date Seen by Provider: Sep 24, 2017 Time Seen by Provider: 09:00 Subjective/Events-last exam PT REPORTS THAT SHE HAS BURNING AND SWELLING OF HER RIGHT CHEEK AND DISCOMFORT ON HER UPPER LIP WELL. SHE COMPLAINS OF CONSTIPATION, NO BOWEL MOVEMENT SINCE LAST SUNDAY Review of Systems General: Fatigue HEENT: No Dysphasia Pulmonary: No Dyspnea, No Cough Cardiovascular: No: Chest Pain, Palpitations Gastrointestinal: Abdominal Pain, Constipation; No: Nausea Neurological: No: Weakness Objective Exam Last Set of Vital Signs Vital Signs Date Time Temp Pulse Resp B/P (MAP) Pulse Ox O2 Delivery O2 Flow Rate FiO2 09/24/17 09:00 98.3 80 20 119/70 (86) 98 Room Air Capillary Refill : Less Than 3 Seconds I&O Intake and Output 09/24/17 00:00 Intake Total 2348 ml Output Total 900 ml Balance 1448 ml Intake Oral 1550 ml IV Total 798 ml Output Urine Total 900 ml # Voids 5 General: Alert, Oriented X3, Cooperative HEENT: Atraumatic, PERRLA Neck: Supple Lungs: Clear to Auscultation Heart: Regular Rate Abdomen: Normal Bowel Sounds, Soft, Other (TTP OVER LOWER ABDOMEN ON LEFT) Skin: Other (FAINT WHITE PATCH ON RIGHT CHEEK, SWELLING RIGHT PER-AURICULAR TISSUE, REDDENED SORES ON LEFT UPPER LIP) Neuro: Strength at 5/5 X4 Ext, Cranial Nerves 3-12 NL Psych/Mental Status: Mental Status NL, Mood NL Assessment/Plan Assessment/Plan Assess & Plan/Chief Complaint RECURRENT HERPES ZOSTER FACIAL PAIN AND SWELLING CONSTIPATION SORES ON SCALP AND UPPER SHOULDER ON RIGHT RECURRENT HERPES ZOSTER - CONTINUE WITH IV ACYCLOVIR FACIAL PAIN AND SWELLING CONSTIPATION - MIRALAX RX FOR PT - DISCUSSED SUPPOSITORY - PT DID NOT WANT TO TRY A SUPPOSITORY AT THIS TIME. SORES ON SCALP AND UPPER SHOULDER ON RIGHT - RX FOR MUPIROCIN Clinical Quality Measures DVT/VTE Risk/Contraindication: Risk Factor Score Per Nursin RFS Level Per Nursing on Admit: 2=Moderate ROEL JACQUES MD Sep 24, 2017 09:14
[2017-09-24] MEDS ORDERED: POLYETHYLENE GLYCOL 17 GM (MIRALAX) PACK PO NR (09:15)
[2017-09-24 12:00] VITALS: BP 129/71
[2017-09-24] MEDS: MUPIROCIN 2% OINT 22 GM (BACTROBAN) TUBE TOP SCH ×2 (12:15→21:52)
[2017-09-24 16:42] VITALS: BP 125/79
[2017-09-24] MEDS: POLYETHYLENE GLYCOL 17 GM (MIRALAX) PACK PO SCH (19:35)
[2017-09-24 20:30] VITALS: BP 137/82
[2017-09-24] MEDS: carBAMazepine 200 MG (TEGretol) TAB PO SCH (21:51)
[2017-09-24] MEDS: ZOLPIDEM 5 MG (AMBIEN) TAB PO PRN (21:56)
[2017-09-25 00:37] VITALS: BP 136/89
[2017-09-25 04:28] VITALS: BP 143/89
[2017-09-25] MEDS: ACYCLOVIR 800 MG/NS 250 ML IVPB IV SCH ×6 (05:23→21:01)
[2017-09-25] MEDS: CATHETER FLUSH 10 ML SYR IV SCH ×3 (05:23→20:58)
[2017-09-25 08:00] VITALS: BP 113/61
--- NOTE | 2017-09-25 08:33 | Progress Note ---
Subjective Date Seen by Provider: Sep 25, 2017 Time Seen by Provider: 08:30 Subjective/Events-last exam PT REPORTS STILL NO BOWEL MOVEMENT DESPITE USE OF MIRALAX. PT REPORTS THAT HER FACE FELLS BETTER, HER SWELLING IS BETTER AND SHE IS FEELING LIKE HER SYMPTOMS HAVE IMPROVED. Objective Exam Last Set of Vital Signs Vital Signs Date Time Temp Pulse Resp B/P (MAP) Pulse Ox O2 Delivery O2 Flow Rate FiO2 09/25/17 04:28 97.7 84 18 143/89 (107) 98 Room Air Capillary Refill : Less Than 3 Seconds I&O Intake and Output 09/25/17 00:00 Intake Total 3522 ml Output Total 800 ml Balance 2722 ml Intake Oral 2990 ml IV Total 532 ml Output Urine Total 800 ml # Voids 9 General: Alert, Oriented X3, Cooperative HEENT: Atraumatic Neck: Supple Lungs: Clear to Auscultation Heart: Regular Rate Abdomen: Normal Bowel Sounds, Soft Skin: Other (RED SITES ON UPPER LIP MORE PROMINENT TODAY, WHITE PATCH ON CHEEK IMPROVED, SWELLING IMPROVED) Psych/Mental Status: Mental Status NL, Mood NL Assessment/Plan Assessment/Plan Assess & Plan/Chief Complaint RECURRENT HERPES ZOSTER FACIAL PAIN AND SWELLING CONSTIPATION SORES ON SCALP AND UPPER SHOULDER ON RIGHT RECURRENT HERPES ZOSTER - CONTINUE WITH IV ACYCLOVIR FACIAL PAIN AND SWELLING CONSTIPATION - MIRALAX RX FOR PT - START ON SENNA S BID SORES ON SCALP AND UPPER SHOULDER ON RIGHT - RX FOR MUPIROCIN Clinical Quality Measures DVT/VTE Risk/Contraindication: Risk Factor Score Per Nursin RFS Level Per Nursing on Admit: 2=Moderate ROEL JACQUES MD Sep 25, 2017 08:33
[2017-09-25] MEDS ORDERED: BISACODYL 10 MG SUPP (DULCOLAX) PR PRN (09:30)
[2017-09-25] MEDS ORDERED: SENNA W/DOCUSATE (SENOKOT S) TABLET PO NR (09:30)
[2017-09-25] MEDS: KETOROLAC 15 MG/ML VIAL IV PRN ×2 (10:00→17:13)
[2017-09-25] MEDS: MUPIROCIN 2% OINT 22 GM (BACTROBAN) TUBE TOP SCH ×2 (10:00→20:59)
[2017-09-25] MEDS: VITAMIN D3 5,000 UNITS (CHOLECALCIFEROL ) CAPSULE PO SCH (10:06)
[2017-09-25] MEDS: DULoxetine 30 MG (CYMBALTA) CAP PO SCH (10:06)
[2017-09-25 12:00] VITALS: BP 125/78
[2017-09-25 16:00] VITALS: BP 135/79
[2017-09-25] MEDS: POLYETHYLENE GLYCOL 17 GM (MIRALAX) PACK PO SCH (17:13)
[2017-09-25] MEDS: ZOLPIDEM 5 MG (AMBIEN) TAB PO PRN (20:58)
[2017-09-25] MEDS: SENNA W/DOCUSATE (SENOKOT S) TABLET PO SCH (20:58)
[2017-09-25] MEDS: carBAMazepine 200 MG (TEGretol) TAB PO SCH (20:58)
[2017-09-26 00:01] VITALS: BP 120/72
[2017-09-26] MEDS: ACYCLOVIR 800 MG/NS 250 ML IVPB IV SCH ×6 (05:32→21:12)
[2017-09-26] MEDS: CATHETER FLUSH 10 ML SYR IV SCH ×3 (05:32→21:19)
[2017-09-26 08:00] VITALS: BP 142/82
[2017-09-26] MEDS ORDERED: CHOL500049 PO (08:47)
[2017-09-26] MEDS ORDERED: VITAMIN D2 50,000 UNITS (1.25 MG) CAP PO SCH (09:00)
[2017-09-26] MEDS ORDERED: PATIENT MAY USE OWN MED,SINGLE MED PO SCH (09:00)
[2017-09-26] MEDS ORDERED: CHOLECALCIFEROL 50000 UNIT PO SCH (09:00)
--- NOTE | 2017-09-26 09:40 | Progress Note ---
Subjective Date Seen by Provider: Sep 26, 2017 Time Seen by Provider: 09:20 Subjective/Events-last exam PT REPORTS THAT SHE IS FEELING BETTER, HER FACIAL PAIN HAS IMPROVED AND HER RASH ON HER FACE IS BETTER WELL. SHE HAD A VERY SMALL BOWEL MOVEMENT YESTERDAY. Review of Systems General: No Fatigue Pulmonary: No Dyspnea, No Cough Cardiovascular: No: Chest Pain, Palpitations Gastrointestinal: No: Nausea Neurological: No: Weakness Objective Exam Last Set of Vital Signs Vital Signs Date Time Temp Pulse Resp B/P (MAP) Pulse Ox O2 Delivery O2 Flow Rate FiO2 09/26/17 08:00 98.2 80 18 142/82 (102) 96 Room Air Capillary Refill : Less Than 3 Seconds I&O Intake and Output 09/26/17 00:00 Intake Total 2366 ml Balance 2366 ml Intake Oral 2100 ml IV Total 266 ml # Voids 12 # Bowel Movements 1 General: Alert, Oriented X3, Cooperative HEENT: Atraumatic, PERRLA Lungs: Clear to Auscultation Heart: Regular Rate Abdomen: Normal Bowel Sounds, Soft Skin: Other (WHITE PATCH ON UPPER CHEEK, RED SITE ON UPPER LIP - IMPROVED) Psych/Mental Status: Mental Status NL, Mood NL Assessment/Plan Assessment/Plan Assess & Plan/Chief Complaint RECURRENT HERPES ZOSTER FACIAL PAIN AND SWELLING CONSTIPATION SORES ON SCALP AND UPPER SHOULDER ON RIGHT RECURRENT HERPES ZOSTER - CONTINUE WITH IV ACYCLOVIR FOR ONE MORE DAY - PT FEELS LIKE SHE MAY BE READY FOR DISCHARGE TOMORROW. FACIAL PAIN AND SWELLING - IMPROVED CONSTIPATION - MIRALAX RX FOR PT - STARTED ON SENNA S BID - PT HAD IMPROVED SYMPTOMS - SHE WILL NEED SUPPOSITORY TODAY- FOR IMPROVED BOWEL FUNCTION. SORES ON SCALP AND UPPER SHOULDER ON RIGHT - RX FOR MUPIROCIN Clinical Quality Measures DVT/VTE Risk/Contraindication: Risk Factor Score Per Nursin RFS Level Per Nursing on Admit: 2=Moderate ROEL JACQUES MD Sep 26, 2017 09:40
[2017-09-26] MEDS: DULoxetine 30 MG (CYMBALTA) CAP PO SCH (09:57)
[2017-09-26] MEDS: MUPIROCIN 2% OINT 22 GM (BACTROBAN) TUBE TOP SCH ×2 (09:57→21:19)
[2017-09-26] MEDS: SENNA W/DOCUSATE (SENOKOT S) TABLET PO SCH ×2 (09:57→21:12)
[2017-09-26 12:43] VITALS: BP 139/84
[2017-09-26] MEDS: KETOROLAC 15 MG/ML VIAL IV PRN ×2 (12:43→23:47)
[2017-09-26 16:00] VITALS: BP 139/82
[2017-09-26] MEDS: ZOLPIDEM 5 MG (AMBIEN) TAB PO PRN (21:12)
[2017-09-26] MEDS: carBAMazepine 200 MG (TEGretol) TAB PO SCH (21:12)
[2017-09-26] MEDS: POLYETHYLENE GLYCOL 17 GM (MIRALAX) PACK PO SCH (21:12)
[2017-09-27] VITALS: BP 129/81
[2017-09-27] MEDS: ACYCLOVIR 800 MG/NS 250 ML IVPB IV SCH ×6 (05:31→21:37)
[2017-09-27] MEDS: CATHETER FLUSH 10 ML SYR IV SCH ×3 (06:33→21:37)
[2017-09-27 08:00] VITALS: BP 125/72
[2017-09-27] MEDS: DULoxetine 30 MG (CYMBALTA) CAP PO SCH (09:15)
[2017-09-27] MEDS: MUPIROCIN 2% OINT 22 GM (BACTROBAN) TUBE TOP SCH ×2 (09:16→20:56)
[2017-09-27] MEDS: SENNA W/DOCUSATE (SENOKOT S) TABLET PO SCH ×2 (09:17→20:56)
[2017-09-27] MEDS ORDERED: diphenhydrAMINE 25 MG TAB (BENADRYL) PO PRN (10:15)
[2017-09-27] MEDS ORDERED: diphenhydrAMINE 25 MG TAB (BENADRYL) PO NR (10:15)
[2017-09-27 15:32] VITALS: BP 117/77
[2017-09-27] MEDS ORDERED: fentaNYL INJECTION 100 MCG/2 ML AMP IVP NR (15:45)
--- NOTE | 2017-09-27 17:45 | Progress Note (SOAP) ---
Subjective Date Seen by Provider: Sep 27, 2017 Time Seen by Provider: 10:00 Subjective/Events-last exam Fwup recurrent herpes zoster of face. States there is a white spot on her right cheek where she had a welt earlier and her face is "firing" more today. Wanting pain medication and feels like is not able to go home. Objective Exam Vital Signs Date Time Temp Pulse Resp B/P (MAP) Pulse Ox O2 Delivery O2 Flow Rate FiO2 09/27/17 15:32 98.0 100 20 117/77 (90) 97 Room Air 09/27/17 08:00 99.3 82 16 125/72 (89) 94 Room Air 09/27/17 00:00 98.6 92 20 129/81 (97) 97 Room Air I & O 09/27/17 07:00 Intake Total 2938 ml Balance 2938 ml Capillary Refill : Less Than 3 Seconds General Appearance: Mild Distress (anxious) Neurologic/Psychiatric: Alert, Oriented x3 Skin: Other (small area of white to right cheek but no urticaria or lesions noted on face ) Assessment/Plan Assessment/Plan Assess & Plan/Chief Complaint 1. Recurrent Herpes Zoster of Face--continue IV zovirax and will add tramadol prn with benadryl, was anticipating DC today but patient feels like she is worse today, did get some bad news about the of a friend of her sons so is more anxious today so this may be contributing to her worsening symptoms today Clinical Quality Measures DVT/VTE Risk/Contraindication: Risk Factor Score Per Nursin RFS Level Per Nursing on Admit: 2=Moderate ABELARDO CASE DO Sep 27, 2017 5:45 pm
[2017-09-27] MEDS: carBAMazepine 200 MG (TEGretol) TAB PO SCH (20:57)
[2017-09-27] MEDS: POLYETHYLENE GLYCOL 17 GM (MIRALAX) PACK PO SCH (20:57)
[2017-09-27] MEDS: KETOROLAC 15 MG/ML VIAL IVP PRN (20:58)
[2017-09-27] MEDS: ZOLPIDEM 5 MG (AMBIEN) TAB PO PRN (22:52)
[2017-09-28 00:40] VITALS: BP 114/73
[2017-09-28] MEDS: KETOROLAC 15 MG/ML VIAL IVP PRN ×3 (03:13→20:25)
[2017-09-28] MEDS: CATHETER FLUSH 10 ML SYR IV SCH ×3 (05:52→20:25)
[2017-09-28] MEDS: ACYCLOVIR 800 MG/NS 250 ML IVPB IV SCH ×4 (05:52→14:53)
[2017-09-28 08:05] VITALS: BP 124/65
[2017-09-28] MEDS: SENNA W/DOCUSATE (SENOKOT S) TABLET PO SCH ×2 (09:41→20:21)
[2017-09-28] MEDS: MUPIROCIN 2% OINT 22 GM (BACTROBAN) TUBE TOP SCH ×2 (09:41→20:21)
[2017-09-28] MEDS: DULoxetine 30 MG (CYMBALTA) CAP PO SCH (09:41)
--- NOTE | 2017-09-28 13:15 | Progress Note (SOAP) ---
Subjective Date Seen by Provider: Sep 28, 2017 Time Seen by Provider: 13:13 Subjective/Events-last exam Fwup recurrent herpes zoster of face. States not as much irritation/firing to right face and welt did not return. Objective Exam Vital Signs Date Time Temp Pulse Resp B/P (MAP) Pulse Ox O2 Delivery O2 Flow Rate FiO2 09/28/17 08:05 98.1 82 20 124/65 (84) 96 Room Air 09/28/17 00:40 98.6 88 18 114/73 (87) 98 Room Air 09/27/17 15:32 98.0 100 20 117/77 (90) 97 Room Air I & O 09/28/17 07:00 Intake Total 4018 ml Output Total 75 ml Balance 3943 ml Capillary Refill : Less Than 3 Seconds General Appearance: No Apparent Distress Neck: Supple Neurologic/Psychiatric: Alert, Oriented x3 Skin: Warm/Dry (no rashes noted to right face) Assessment/Plan Assessment/Plan Assess & Plan/Chief Complaint 1. Recurrent Herpes Zoster of Face--continue IV zovirax and tramadol prn, plan DC tomorrow if facial pain remains stable over next 24hrs Clinical Quality Measures DVT/VTE Risk/Contraindication: Risk Factor Score Per Nursin RFS Level Per Nursing on Admit: 2=Moderate ABELARDO CASE DO Sep 28, 2017 13:15
[2017-09-28] MEDS ORDERED: ACYC800T7 PO (13:18)
[2017-09-28 16:00] VITALS: BP 141/78
[2017-09-28] MEDS: POLYETHYLENE GLYCOL 17 GM (MIRALAX) PACK PO SCH (20:21)
[2017-09-28] MEDS: carBAMazepine 200 MG (TEGretol) TAB PO SCH (20:21)
[2017-09-28] MEDS: ZOLPIDEM 5 MG (AMBIEN) TAB PO PRN (22:37)
[2017-09-29 00:30] VITALS: BP 129/79
[2017-09-29] MEDS: CATHETER FLUSH 10 ML SYR IV SCH (06:00)
[2017-09-29 08:00] VITALS: BP 118/76
[2017-09-29 09:25] VITALS: BP 118/76
[2017-09-29] MEDS: SENNA W/DOCUSATE (SENOKOT S) TABLET PO SCH ×2 (09:35→09:37)
[2017-09-29] MEDS: DULoxetine 30 MG (CYMBALTA) CAP PO SCH (09:35)
[2017-09-29] MEDS: MUPIROCIN 2% OINT 22 GM (BACTROBAN) TUBE TOP SCH (09:36)
--- NOTE | 2017-09-29 10:18 | Discharge Summary-Hospitalist ---
Diagnosis/Chief Complaint Date of Admission Sep 22, 2017 at 12:28 am Date of Discharge September 29, 2017 Discharge Date: Sep 29, 2017 Discharge Time: 11:00 Admission Diagnosis A/P 1. Recurrent herpetic infection Symplex statistically more likely than zoster versus angioedema involving the right middle branch/V2 of the right trigeminal nerve. On reading the patient's last similar admission in June on presentation she did not have evidence for overt swelling or fasciculation but progressed. She reports that the vesicles do not scab over but resolved slowly unlike typical recurrent herpetic infection. I did discuss the importance of repeating a viral culture of vesicular fluid in the future if Dr. Allen who knows her case best does not recall this having been done to truly document that these are indeed recurrent herpetic infection. We'll continue IV acyclovir and monitoring. I did find documentation of normal immunoglobulin levels IgA IgG and IgM in 2011 after she had several recurrent events ruling out acquired immunoglobulin deficiency 2. Distant past history of metastatic melanoma likely cured as reportedly there has been at least 15 years since her last and only metastatic event. Discharge Diagnosis Recurrent shingles History of malignant melanoma Discharge Summary Procedures/Consulations None Discharge Physical Exam Allergies: Coded Allergies: promethazine (Verified Allergy, Unknown, 04/13/16) vancomycin (Verified Allergy, Unknown, RASH, 09/13/16) reacted to iv vancomycin in cancer center on 01/21 Vitals & I&Os Vital Signs Date Time Temp Pulse Resp B/P (MAP) Pulse Ox O2 Delivery O2 Flow Rate FiO2 09/29/17 08:00 98.4 76 16 118/76 (90) 95 Room Air General Appearance: Alert, Oriented X3, Cooperative HEENT: Atraumatic, PERRLA Respiratory: Clear to Auscultation Cardiovascular: Regular Rate Psych/Mental Status: Mental Status NL Hospital Course Patient admitted and placed on IV acyclovir without complication. She remained afebrile. Blood work was within normal limits. There was not a large amount of outbreak in the second trigeminal nerve distribution but rather one or 2 spots. Patient's symptoms resolved faster this time than ever before. She is discharged on oral acyclovir 800 5 times a day for 3-4 days and then back to her preventive dose of 400 mg twice a day Labs (last 24 hrs) Patient resulted labs reviewed. Discussion & Recommendations Discharge Planning: <30 minutes discharge planning Discharge Home Medications: Active Scripts Active Zovirax (Acyclovir) 800 Mg Tablet 800 Mg PO 5XD Reported Vitamin D3 (Cholecalciferol (Vitamin D3)) 50,000 Unit Capsule 50,000 Unit PO WEEK TAKES ON WEDNESDAYS X 6 MORE WKS THEN CHANGE TO 5,000 UNITS AFTER 10/31/17 Meclizine HCl 25 Mg Tablet 25 Mg PO PRN Melatonin 10 Mg Tablet 10 Mg PO HS PRN Duloxetine HCl 60 Mg Capsule.dr 60 Mg PO DAILY Eszopiclone 2 Mg Tablet 2 Mg PO HS Carbamazepine ER (Carbamazepine) 200 Mg Tab.er.12h 200 Mg PO HS Condition at discharge Stable Instructions to patient/family Please see electronic discharge instructions given to patient. Clinical Quality Measures DVT/VTE Risk/Contraindication: Risk Factor Score Per Nursin RFS Level Per Nursing on Admit: 2=Moderate Copy Copies To 1: ABELARDO CASE KATHLEEN M MD Sep 29, 2017 10:18 am
== END 2017-09-29 09:25 | disposition home or self-care (01) | DRG 596 ==
LOC: EDUNIT# 22:57 → ER 22:58 → 4TH 09-22 00:28
PROVIDERS: ADMIT Internal Medicine; ATTEND Internal Medicine
DX: B02.9 Zoster without complications (principal); K21.9 Gastro-esophageal reflux disease without esophagitis; K58.9 Irritable bowel syndrome, unspecified; M79.7 Fibromyalgia; R13.10 Dysphagia, unspecified; R68.2 Dry mouth, unspecified; G43.909 Migraine, unspecified, not intractable, without status migrainosus; F41.9 Anxiety disorder, unspecified; F32.9 Major depressive disorder, single episode, unspecified; E66.9 Obesity, unspecified; K59.00 Constipation, unspecified; Z85.820 Personal history of malignant melanoma of skin; Z92.21 Personal history of antineoplastic chemotherapy; Z92.3 Personal history of irradiation; Z90.09 Acquired absence of other part of head and neck; Z87.440 Personal history of urinary (tract) infections; Z68.35 Body mass index [BMI] 35.0-35.9, adult
CPT/HCPCS: 36415; 80053; 85025; 96374; 96375; 99284

== ENCOUNTER → 2018-01-21 | Outpatient (CLI) | payer BC, MEDICARE ==
[~2018-01-21] MED LIST changes: +ACYC800T7 PO; +CHOL500049 PO; -ESZO2TAB30 PO; +ESZO2TAB31 PO; +MECL-106 PO
--- NOTE | 2018-01-21 16:14 | Diagnostic Imaging Report ---
PROCEDURE: US Thyroid. TECHNIQUE: Multiple real-time grayscale images were obtained of the thyroid in various projections. INDICATION: Thyroid nodule. COMPARISON: Correlation is made with prior thyroid ultrasound from 04/23/2017. FINDINGS: Right lobe of the thyroid measures 2.7 x 1.0 x 0.9 cm and the left lobe measures 4.7 x 1.4 x 1.6 cm. Left lobe thyroid nodule is again seen now measuring 1.0 x 0.9 x 0.7 cm compared with 1.0 x 0.8 x 0.5 cm. Tiny subcentimeter cysts approximately 4-5 mm also seen on the left. Right lobe is unremarkable. IMPRESSION: Overall stable circumscribed hypoechoic nodule in the left lobe of thyroid when compared with prior examination from 04/23/2017. Dictated by: Dictated on workstation # [id number]
--- NOTE | 2018-01-21 16:47 | Diagnostic Imaging Report ---
PROCEDURE: US Non-ob pelvis comp/trans. TECHNIQUE: Multiple realtime grayscale images were obtained of the pelvis in various projections endovaginally. Transabdominal imaging was also performed. INDICATION: Left lower quadrant pain. FINDINGS: The uterus is surgically absent. Right ovary cannot be visualized due to overlying bowel gas. Left ovary measures 3.5 x 2.1 x 2.1 cm. The left ovary does contain an approximately 12 mm cyst. No other adnexal mass or free fluid is seen. IMPRESSION: Surgically absent uterus. Right ovary was not visualized. Left ovary contains a small cyst. Dictated by: Dictated on workstation # [id number]
== END ==
LOC: RAD 14:21
PROVIDERS: ATTEND Otolaryngology Otolaryngology/Facial Plastic Surgery
DX: E04.1 Nontoxic single thyroid nodule (principal); N83.202 Unspecified ovarian cyst, left side; Z90.710 Acquired absence of both cervix and uterus
CPT/HCPCS: 76536; 76830; 76856

== ENCOUNTER 2018-01-31 12:36 | Outpatient (RCR) | payer BC, MEDICARE ==
[2018-01-31 13:06] LABS: BASOPHILS % (AUTO) 0 % (0-10); EOSINOPHILS # (AUTO) 0.2 10^3/uL (0.0-0.3); EOSINOPHILS % (AUTO) 3 % (0-10); HEMATOCRIT 39 % (35-52); HEMOGLOBIN 13.1 G/DL (11.5-16.0); LYMPHOCYTES # (AUTO) 1.4 X 10^3 (1.0-4.0); LYMPHOCYTES % (AUTO) 21 % (12-44); MEAN CORPUSCULAR HEMOGLOBIN 31 PG (25-34); MEAN CORPUSCULAR HGB CONC 34 G/DL (32-36); MEAN CORPUSCULAR VOLUME 92 FL (80-99); MEAN PLATELET VOLUME 8.7 FL (7.4-10.4); MONOCYTES # (AUTO) 0.4 X 10^3 (0.0-1.0); MONOCYTES % (AUTO) 5 % (0-12); NEUTROPHILS # (AUTO) 4.6 X 10^3 (1.8-7.8); NEUTROPHILS % (AUTO) 70 % (42-75); PLATELET COUNT 261 10^3/uL (130-400); RED CELL DISTRIBUTION WIDTH 12.1 % (10.0-14.5); WHITE BLOOD COUNT 6.5 10^3/uL (4.3-11.0)
[2018-01-31 13:24] LABS: ALANINE AMINOTRANSFERASE 18 U/L (0-55); ALBUMIN 4.2 GM/DL (3.2-4.5); ALKALINE PHOSPHATASE 81 U/L (40-136); BILIRUBIN,TOTAL 0.4 MG/DL (0.1-1.0); BUN/CREATININE RATIO 14; CARBON DIOXIDE 20 MMOL/L (21-32); CHLORIDE 104 MMOL/L (98-107); GFR ESTIMATED > 60; GLUCOSE 111 MG/DL (70-105); SODIUM 135 MMOL/L (135-145)
[2018-02-04 17:10] LABS: CHOLESTEROL 254 MG/DL (< 200); HDL CHOLESTEROL 51 MG/DL (40-60); TRIGLYCERIDES 243 MG/DL (<150); VLDL CHOLESTEROL 49 MG/DL (5-40)
[2018-02-11] MEDS ORDERED: ATOR10TA66 PO (23:53)
[2018-02-11] MEDS ORDERED: OXYB5TAB9 PO (23:53)
[2018-02-11] MEDS ORDERED: CEFD300C3 PO (23:53)
[2018-02-12] MEDS ORDERED: DULO60CA58 PO (15:48)
[2018-02-12] MEDS ORDERED: [UNRECOGNIZED DRUG - CODE] PO (15:55)
[2018-02-12] MEDS ORDERED: PSEU30TA35 PO (15:57)
[2018-02-13] MEDS ORDERED: ACYC200C PO (13:46)
[2018-02-13] MEDS ORDERED: CHOL5000 PO (13:46)
[2018-03-07] MEDS ORDERED: AMIT10TA6 PO (13:06)
[2018-03-07] MEDS ORDERED: GBPN600T PO (13:06)
[2018-03-07] MEDS ORDERED: ACYC800T PO (13:06)
[2018-03-07] MEDS ORDERED: CEFD300C3 PO (13:06)
[2018-03-07] MEDS ORDERED: CARB200T6 PO (13:06)
[2018-03-07] MEDS ORDERED: FENT1PAT8 TD (13:06)
== END 2018-04-03 | disposition home or self-care (01) ==
LOC: ONC 12:36
PROVIDERS: ATTEND Internal Medicine Hematology & Oncology
DX: Z08 Encounter for follow-up examination after completed treatment for malignant neoplasm (principal); Z85.820 Personal history of malignant melanoma of skin; E55.9 Vitamin D deficiency, unspecified; F17.210 Nicotine dependence, cigarettes, uncomplicated; B00.9 Herpesviral infection, unspecified; G62.9 Polyneuropathy, unspecified; R39.15 Urgency of urination; R30.0 Dysuria; Z79.899 Other long term (current) drug therapy
CPT/HCPCS: 36415; 36591; 80053; 80061; 82306; 83615; 85025; 96523

== ENCOUNTER → 2018-02-06 | Outpatient (CLI) | payer BC ==
[~2018-02-06] MED LIST changes: +IOHEXOL 350 MG/ML 100 ML (OMNIPAQUE 350) VIAL IV ONE; +NS 100 ML (IVPB) BAG IV ONE; +RECEIVED CONTRAST (Hold Metformin) IV SCH
--- NOTE | 2018-02-06 15:38 | Diagnostic Imaging Report ---
PROCEDURE: CT chest with contrast, CT abdomen and pelvis with and without contrast. TECHNIQUE: Pre and post intravenous contrast axial imaging of the abdomen and pelvis and post contrast axial imaging of the chest were performed. INDICATION: Melanoma. CT CHEST: Comparison is made with CT chest from 08/31/2014. No axillary lymphadenopathy is identified. No definite hilar or mediastinal lymphadenopathy is seen. No pericardial or pleural fluid is detected. A benign-appearing nodule in the posteromedial right lower lobe appears stable. No new pulmonary nodule is detected. IMPRESSION: Stable right lower lobe pulmonary nodule. No thoracic lymphadenopathy or evidence of pulmonary metastatic disease is identified. CT ABDOMEN AND PELVIS: No discrete liver mass is identified. The gallbladder is surgically absent. No biliary ductal dilatation is seen. Pancreas and spleen are unremarkable. No adrenal mass is detected. The kidneys are unremarkable. Aorta is nonaneurysmal. No central retroperitoneal or mesenteric lymphadenopathy is seen. Bowel loops are normal in caliber. There is no ascites. The uterus appears to be surgically absent. Probable small cyst in the left ovary is noted, approximately 11 mm in size. No pelvic lymphadenopathy is seen. The bladder is unremarkable. The bony structures are nonacute. IMPRESSION: No evidence of abdominal or pelvic lymphadenopathy or metastatic disease. Dictated by: Dictated on workstation # [id number]
== END ==
LOC: RAD 12:48
PROVIDERS: ATTEND Nurse Practitioner Adult Health
DX: C43.4 Malignant melanoma of scalp and neck (principal); R10.2 Pelvic and perineal pain; R91.1 Solitary pulmonary nodule; Z90.49 Acquired absence of other specified parts of digestive tract
CPT/HCPCS: 71260; 74178

== ENCOUNTER 2018-02-11 23:13 | Inpatient (IN) | payer BC, MEDICARE ==
[~2018-02-11] VITALS: Ht 162.6 cm; Wt 99.4 kg
[~2018-02-11 23:13] MED LIST changes: -IOHEXOL 350 MG/ML 100 ML (OMNIPAQUE 350) VIAL IV ONE; -NS 100 ML (IVPB) BAG IV ONE; -RECEIVED CONTRAST (Hold Metformin) IV SCH
--- OUTSIDE RECORDS SUMMARY | 2018-02-11 23:19 | XMS REPORT | Clinical Summary ---
Author Author [facility] Organization [facility] Address Unknown Phone Unavailable Care Team Providers Care Ballistics Tester Name Role Phone Faizan Mann MD Unavailable [...] in the Health Information Management department at [phone] for further assistance in locating additional records.[facility] Allergies Comments Active Allergy Reactions Severity Noted Date [id number] RASH 02/07/2014 [id number] Promethazine UNKNOWN 04/05/2010 Vancomycin ITCHING 04/06/2010 Medications End Date Status Medication Sig Dispensed Refills Start Date Active amitriptyline (ELAVIL) 10 Take 1 Tab by 90 Tab 3 mg tablet mouth at 6 bedtime daily. Active acyclovir (ZOVIRAX) 400 Take 400 mg 0 mg tablet by mouth every 24 hours. Active cholecalciferol(+) Take 1 Cap by 8 Cap 0 (Vitamin D3) 50,000 units mouth every 7 6 capsuleIndications: days. 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 Leukocytosis 02/07/2014 Facial rash 02/07/2014 HSV (herpes simplex virus) infection 08/28/2011 Cellulitis 04/09/2010 Melanoma 04/09/2010 Urinary retention 04/09/2010 Blurry vision, bilateral 04/09/2010 Family History Medical History Relation Name Comments Diabetes Father Heart problem Father Relation Name Status Comments Father Alive Mother Alive Social History Date Tobacco Use Types Packs/Day Years Used Never Smoker Smokeless Tobacco: Never Used Tobacco Cessation: Counseling Given: No Alcohol Use Drinks/Week oz/Week Comments No 0 Standard 0.0 drinks or equivalent Sex Assigned at Date Recorded Not on file Industry Job Start Date Occupation Not on file Not on file Not on file Travel End Travel History Travel Start No recent travel history available. Last Filed Vital Signs Time Taken Vital Sign Reading 05/23/2016 12:54 PM CDT Blood Pressure 120/80 05/23/2016 12:54 PM CDT Pulse 76 05/23/2016 12:54 PM CDT Temperature 36.9 C (98.5 F) 05/23/2016 12:54 PM CDT Respiratory Rate 16 11/03/2015 12:58 PM CDT Oxygen Saturation 97% - Inhaled Oxygen - Concentration 05/23/2016 12:54 PM CDT Weight 92.1 kg (203 lb) 05/23/2016 12:54 PM CDT Height 163.8 cm (5' 4.5") 05/23/2016 12:54 PM CDT Body Mass Index 34.31 Plan of Treatment Health Maintenance Due Date Last Done Comments PHYSICAL (COMPREHENSIVE) 1977 EXAM DTAP/TDAP VACCINES ( - 1988 Tdap) CERVICAL CANCER SCREENING 2000 BREAST CANCER SCREENING 2010 INFLUENZA VACCINE 09/19/2017 HIV SCREENING Completed 04/08/2010 Results Not on filefrom Last 3 Months Insurance Payer Benefit Subscriber ID Type Phone Address Plan / Group BCBS [facility] xxxxxxxxxxxx PPO PREF CARE BLUE MEDICARE MEDICARE xxxxxxxxxx Medicare PART A Advance Directives Patient has advance care planning documents, and code status on file. For more information, please contact: [facility] [address] [place] [address] [place] [address] Date Inactivated Comments Code Status Date Activated 02/08/2014 2:48 PM Full Code 02/07/2014 9:48 PM Provider has discussed Code Status No, more discussion w/Patient or Family? needed 04/22/2010 4:18 PM Full Code 04/14/2010 2:38 PM Provider has discussed Code Status Yes w/Patient or Family? 04/14/2010 2:38 PM Full Code 04/14/2010 2:36 PM Provider has discussed Code Status Yes w/Patient or Family? 04/10/2010 2:41 PM Full Code 04/06/2010 12:44 AM Provider has discussed Code Status Yes w/Patient or Family?
--- OUTSIDE RECORDS SUMMARY | 2018-02-11 23:25 | XMS REPORT | Continuity of Care Document ---
Author Author [facility] Organization [facility] Address Unknown Phone Unavailable Allergies Active Description Code Type Severity Reaction Onset Reported/Identified Relationship to Patient Clinical Status Yes NKANo Known Allergies NKA Miscellaneous Allergy Unknown N/A 03/16/2008 Yes promethazine [id number] Drug Allergy Unknown N/A 04/13/2016 Yes vancomycin [id number] Drug Allergy Unknown RASH 09/13/2016 Medications There [...] 02/17/2014 SANGEETHA, BOBAN N Ot V58.74 02/17/2014 SANGETEHA, BOBAN N Ot 054.9 02/17/2014 SANGEETHA, BOBAN [...] 02/22/2014 SANGEETHA, BOBAN N Ot 564.1 02/22/2014 SANGETEHA, BOBAN N Ot 729.1 02/22/2014 SANGEETHA, BOBAN [...] 02/27/2014 SANGEETHA, BOBAN N Ot V58.74 02/27/2014 SANGEEHTA, BOBAN N Ot 054.9 HERPES SIMPLEX NOS [...] 04/07/2014 Ot V67.1 04/07/2014 ANA LAURA EDWARD CONTROLS DESIGNER Ot 054.9 04/07/2014 ANA LAURA EDWARD CONTROLS DESIGNER Ot 529.6 04/07/2014 ANA LAURA EDWARD CONTROLS DESIGNER Ot 723.4 04/07/2014 ANA LAURA EDWARD CONTROLS DESIGNER Ot V10.82 04/07/2014 ANA LAURA EDWARD CONTROLS DESIGNER Ot V58.69 04/07/2014 ANA LAURA EDWARD CONTROLS DESIGNER Ot V67.1 04/07/2014 ANA LAURA EDWARD CONTROLS DESIGNER Ot 172.9 04/07/2014 TYLOR MENDOZA MD Ot [...] FO 05/24/2015 SANGEETHAMARYSE N Ot 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 RETIREMENT (CURRENT) DRUG THERAPY 05/24/2015 SANGEETHAMARYSE N Ot Z85.820 PERSONAL HISTORY OF MALIGNANT MELANOMA O 10/04/2015 SANGEETHAMARYSE N Ot F17.210 NICOTINE DEPENDENCE, CIGARETTES, UNCOMPL 10/04/2015 SANGEETHAMARYSE SANTIAGO N Ot Z08 ENCNTR FOR FOLLOW-UP EXAM AFTER TRTMT FO 10/04/2015 MARYSE VIVAS N Ot 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 10/04/2015 MARYSE VIVAS Amrita Ot Z85.820 PERSONAL HISTORY OF MALIGNANT MELANOMA O 11/04/2015 MARYSE VIVAS Amrita Ot F17.210 NICOTINE DEPENDENCE, CIGARETTES, UNCOMPL 11/04/2015 MARYSE VIVAS Amrita Ot Z08 ENCNTR FOR FOLLOW-UP EXAM AFTER TRTMT FO 11/04/2015 MARYSE VIVAS Amrita Ot 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 11/04/2015 MARYSE VIVSA Amrita Ot Z85.820 PERSONAL HISTORY OF MALIGNANT MELANOMA O 01/09/2016 MARYSE VIVAS Amrita Ot F17.210 NICOTINE DEPENDENCE, CIGARETTES, UNCOMPL 01/09/2016 MARYSE VIVAS Amrita Ot Z08 ENCNTR FOR FOLLOW-UP EXAM AFTER TRTMT FO 01/09/2016 MARYSE VIVAS Amrita Ot 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 01/09/2016 MARYSE VIVAS Amrita Ot Z85.820 PERSONAL HISTORY OF MALIGNANT MELANOMA O 04/10/2016 MARYSE VIVAS Amrita Ot F17.210 NICOTINE DEPENDENCE, CIGARETTES, UNCOMPL 04/10/2016 MARYSE VIVAS N Ot Z08 ENCNTR FOR FOLLOW-UP EXAM AFTER TRTMT FO 04/10/2016 MARYSE VIVAS Amrita Ot 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 RETIREMENT (CURRENT) DRUG THERAPY 04/10/2016 MARYSE VIVAS Amrita Ot Z85.820 PERSONAL HISTORY OF MALIGNANT MELANOMA O 04/13/2016 MARYSE VIVAS Amrita Ot F17.210 NICOTINE DEPENDENCE, CIGARETTES, UNCOMPL 04/13/2016 MARYSE VIVAS Amrita Ot Z08 ENCNTR FOR FOLLOW-UP EXAM AFTER TRTMT FO 04/13/2016 MARYSE VIVAS Amrita Ot 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 RETIREMENT (CURRENT) DRUG THERAPY 04/13/2016 MARYSE VIVAS Amrita [...] V67.1 RADIOTHERAPY FOLLOW-UP 04/14/2016 ANA LAURA EDWARD CONTROLS DESIGNER Ot 054.9 HERPES SIMPLEX NOS 04/14/2016 ANA LAURA EDWARD CONTROLS DESIGNER Ot 529.6 GLOSSODYNIA 04/14/2016 ANA LAURA EDWARD CONTROLS DESIGNER Ot 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 NEURITIS NOS 04/14/2016 ANA LAURA EDWARD CONTROLS DESIGNER Ot V10.82 HX-MALIG SKIN MELANOMA 04/14/2016 ANA LAURA EDWARD CONTROLS DESIGNER Ot V58.69 OTH MED,LT,CURRENT USE 04/14/2016 ANA LAURA EDWARD CONTROLS DESIGNER Ot V67.1 RADIOTHERAPY FOLLOW-UP 04/14/2016 ANA LAURA EDWARD CONTROLS DESIGNER Ot 172.9 MALIG MELANOMA SKIN NOS 04/14/2016 [...] Ot 473.9 CHRONIC SINUSITIS NOS 04/14/2016 SADAF AJCOBS MD Ot 478.0 HYPERTRPH NASAL TURBINAT 04/14/2016 SADAF JACOBS MD Ot V72.81 [id number] CARDIOVASCULAR 04/14/2016 SADAF JACOBS MD Ot V72.83 [...] FO 04/14/2016 MARYSE VIVAS Ot 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 RETIREMENT (CURRENT) DRUG THERAPY 04/14/2016 MARYSE VIVAS N [...] MARYSE N Ot K11.20 SIALOADENITIS, UNSPECIFIED 04/20/2016 SNAGEETHA MARYSE N Ot K21.9 GASTRO-ESOPHAGEAL REFLUX DISEASE [...] FO 04/24/2016 MARYSE VIVAS Ot 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 04/24/2016 MARYSE VIVAS Ot Z85.820 PERSONAL HISTORY OF MALIGNANT MELANOMA O 04/25/2016 SANGEETHAMARSYE Ot B00.9 HERPESVIRAL INFECTION, UNSPECIFIED 04/25/2016 SANGEETHAMARYSE Ot B02.9 ZOSTER WITHOUT COMPLICATIONS 04/25/2016 MAYRSE VIVAS Ot F32.9 MAJOR DEPRESSIVE DISORDER, SINGLE [...] FO 05/10/2016 MARYSE VIVAS Ot 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 RETIREMENT (CURRENT) DRUG THERAPY 05/10/2016 MARYSE VIVAS Ot Z85.820 PERSONAL HISTORY OF MALIGNANT MELANOMA O 07/11/2016 MARYSE VIVAS Ot F17.210 NICOTINE DEPENDENCE, CIGARETTES, UNCOMPL 07/11/2016 MARYSE VIVAS Ot Z08 ENCNTR FOR FOLLOW-UP EXAM AFTER TRTMT FO 07/11/2016 MARYSE VIVAS Ot 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 RETIREMENT (CURRENT) DRUG THERAPY 07/11/2016 MARYSE VIVAS Ot Z85.820 PERSONAL HISTORY OF MALIGNANT MELANOMA O 09/13/2016 MARYSE VIVAS Ot F17.210 NICOTINE DEPENDENCE, CIGARETTES, UNCOMPL 09/13/2016 MARYSE VIVAS Ot Z08 ENCNTR FOR FOLLOW-UP EXAM AFTER TRTMT FO 09/13/2016 MARYSE VIVAS Ot 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 RETIREMENT (CURRENT) DRUG THERAPY 09/13/2016 MARYSE VIVAS Ot [...] V67.1 RADIOTHERAPY FOLLOW-UP 12/04/2016 ANA LAURA EDWARD CONTROLS DESIGNER Ot 054.9 HERPES SIMPLEX NOS 12/04/2016 ANA LAURA EDWARD CONTROLS DESIGNER Ot 529.6 GLOSSODYNIA 12/04/2016 ANA LAURA EDWARD CONTROLS DESIGNER Ot 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 NEURITIS NOS 12/04/2016 ANA LAURA EDWARD CONTROLS DESIGNER Ot V10.82 HX-MALIG SKIN MELANOMA 12/04/2016 ANA LAURA EDWARD CONTROLS DESIGNER Ot V58.69 OTH MED,LT,CURRENT USE 12/04/2016 ANA LAURA EDWARD CONTROLS DESIGNER Ot V67.1 RADIOTHERAPY FOLLOW-UP 12/04/2016 ANA LAURA EDWARD CONTROLS DESIGNER Ot 172.9 MALIG MELANOMA SKIN NOS 12/04/2016 TYLOR MENDOZA MD Ot 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 12/04/2016 TYLOR MENDOZA MD Ot 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 DISC DEGEN 12/04/2016 TYLOR MENODZA MD Ot 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 NEURITIS NOS 12/04/2016 [...] 12/04/2016 ARLENE LAM, SADAF Mcdaniel Ot V72.81 [id number] CARDIOVASCULAR 12/04/2016 SADAF JACOBS MD Ot V72.83 [...] 12/04/2016 MARYSE VIVAS Amrita Ot 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 RETIREMENT (CURRENT) DRUG THERAPY 12/04/2016 MARYSE VIVAS Amrita [...] 01/05/2017 MARYSE VIVAS Amrita Ot 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 RETIREMENT (CURRENT) DRUG THERAPY 01/05/2017 MARYSE VIVAS Amrita [...] 01/16/2017 MARYSE VIVAS N Ot 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 RETIREMENT (CURRENT) DRUG THERAPY 01/16/2017 SANGEETHA STEFFANIEJE N [...] 02/01/2017 SANGEETHA MARYSE Crowe Ot 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 RETIREMENT (CURRENT) DRUG THERAPY 02/01/2017 SANGEETHAMARYSE N Ot [...] FO 04/04/2017 MARYSE VIVAS Ot 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 04/04/2017 MARYSE VIVAS Ot [...] HERPES SIMPLEX NOS 04/04/2017 ANA LAURA EDWARD CONTROLS DESIGNER Ot 529.6 GLOSSODYNIA 04/04/2017 ANA LAURA EDWARD CONTROLS DESIGNER Ot 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 NEURITIS NOS 04/04/2017 ANA LAURA EDWARDP Ot V10.82 HX-MALIG SKIN MELANOMA 04/04/2017 ANA LAURA EDWARD Ot V58.69 OTH MED,LT,CURRENT USE 04/04/2017 ANA LAURA EDWARD CONTROLS DESIGNER Ot V67.1 RADIOTHERAPY FOLLOW-UP 04/04/2017 ANA LAURA [...] DO Ot V72.84 EXAM PRE-OPERATIVE NOS 04/04/2017 MAYRSE VIVAS Ot 276.69 OTHER FLUID OVERLOAD 04/04/2017 [...] 04/04/2017 ARLENE LAM, SADAF Mcdaniel Ot V72.81 [id number] CARDIOVASCULAR 04/04/2017 ARLENE LAM, SADAF Mcdaniel Ot [...] MARYSE VIVAS Ot V67.1 RADIOTHERAPY FOLLOW-UP 04/04/2017 AMRYSE VIVAS Ot B00.9 HERPESVIRAL INFECTION, UNSPECIFIED 04/04/2017 MARYSE VIVAS Ot E55.9 VITAMIN D DEFICIENCY, UNSPECIFIED 04/04/2017 MARYSE VIVAS Ot F17.210 NICOTINE DEPENDENCE, CIGARETTES, UNCOMPL 04/04/2017 MARYSE VIVAS Ot G62.9 POLYNEUROPATHY, UNSPECIFIED 04/04/2017 MARYSE VIVAS Ot Z08 ENCNTR FOR FOLLOW-UP EXAM AFTER TRTMT FO 04/04/2017 MARYSE VIVAS Ot 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 RETIREMENT (CURRENT) DRUG THERAPY 04/04/2017 MARYSE VIVAS Ot [...] FO 04/05/2017 MARYSE VIVAS Ot 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 RETIREMENT (CURRENT) DRUG THERAPY 04/05/2017 MARYSE VIVAS Ot [...] V67.1 RADIOTHERAPY FOLLOW-UP 05/11/2017 ANA LAURA EDWARD CONTROLS DESIGNER Ot 054.9 HERPES SIMPLEX NOS 05/11/2017 ANA LAURA EDWARD CONTROLS DESIGNER Ot 529.6 GLOSSODYNIA 05/11/2017 ANA LAURA EDWARD CONTROLS DESIGNER Ot 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 NEURITIS NOS 05/11/2017 ANA LAURA EDWARD CONTROLS DESIGNER Ot V10.82 HX-MALIG SKIN MELANOMA 05/11/2017 ANA LAURA EDWARD CONTROLS DESIGNER Ot V58.69 OTH MED,LT,CURRENT USE 05/11/2017 ANA LAURA EDWARD CONTROLS DESIGNER Ot V67.1 RADIOTHERAPY FOLLOW-UP 05/11/2017 EDWARDANA LAURA Rucker Chaim CONTROLS DESIGNER Ot 172.9 MALIG MELANOMA SKIN NOS 05/11/2017 [...] 05/11/2017 ARLENE LAM, SADAF Mcdaniel Ot V72.81 NVEL-[id number] CARDIOVASCULAR 05/11/2017 ARLENE LAM, SADAF P Ot [...] FO 05/16/2017 MARYSE VIVAS Ot 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 RETIREMENT (CURRENT) DRUG THERAPY 05/16/2017 MARYSE VIVAS Ot [...] V67.1 RADIOTHERAPY FOLLOW-UP 05/31/2017 ANA LAURA EDWARD CONTROLS DESIGNER Ot 054.9 HERPES SIMPLEX NOS 05/31/2017 ANA LAURA EDWARD CONTROLS DESIGNER Ot 529.6 GLOSSODYNIA 05/31/2017 ANA LAURA EDWARD CONTROLS DESIGNER Ot 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 NEURITIS NOS 05/31/2017 ANA LAURA EDWARD CONTROLS DESIGNER Ot V10.82 HX-MALIG SKIN MELANOMA 05/31/2017 ANA LAURA EDWARD CONTROLS DESIGNER Ot V58.69 OTH MED,LT,CURRENT USE 05/31/2017 ANA LAURA EDWARD CONTROLS DESIGNER Ot V67.1 RADIOTHERAPY FOLLOW-UP 05/31/2017 ANA LAURA EDWARD CONTROLS DESIGNER Ot 172.9 MALIG MELANOMA SKIN NOS 05/31/2017 [...] 05/31/2017 ARLENE LAM, SADAF Mcdaniel Ot V72.81 [id number]-CVU-[id number] CARDIOVASCULAR 05/31/2017 ARLENE LAM, SADAF Mcdaniel Ot [...] FO 05/31/2017 MARYSE VIVAS Ot 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 RETIREMENT (CURRENT) DRUG THERAPY 05/31/2017 MARYSE VIVAS Ot [...] FO 05/31/2017 MARYSE VIVAS Ot 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 RETIREMENT (CURRENT) DRUG THERAPY 05/31/2017 MARYSE VIVAS Ot Z85.820 PERSONAL HISTORY OF MALIGNANT MELANOMA O 05/31/2017 ARLENE LAM, SADAF Mcdaniel Ot E04.2 NONTOXIC MULTINODULAR GOITER 07/03/2017 ALYSIA ARIAS APRN Ot 729.2 NEURALGIA/NEURITIS NOS 07/03/2017 Ot 723.1 CERVICALGIA 07/03/2017 Ot V10.82 HX-MALIG SKIN MELANOMA 07/03/2017 Ot V58.69 OTH MED,LT, CURRENT USE 07/03/2017 Ot V67.1 RADIOTHERAPY FOLLOW-UP 07/03/2017 ANA LAURA EDWARD CONTROLS DESIGNER Ot 054.9 HERPES SIMPLEX NOS 07/03/2017 ANA LAURA EDWARD CONTROLS DESIGNER Ot 529.6 GLOSSODYNIA 07/03/2017 ANA LAURA EDWARD CONTROLS DESIGNER Ot 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 NEURITIS NOS 07/03/2017 ANA LAURA EDWARD CONTROLS DESIGNER Ot V10.82 HX-MALIG SKIN MELANOMA 07/03/2017 ANA LAURA EDWARD CONTROLS DESIGNER Ot V58.69 OTH MED,LT,CURRENT USE 07/03/2017 ANA LAURA EDWARD CONTROLS DESIGNER Ot V67.1 RADIOTHERAPY FOLLOW-UP 07/03/2017 EDWARD, HILAH S CONTROLS DESIGNER Ot 172.9 MALIG MELANOMA SKIN NOS 07/03/2017 [...] TURBINAT 07/03/2017 SADAF JACOBS MD Ot V72.81 [id number]-[id number] CARDIOVASCULAR 07/03/2017 SADAF JACOBS MD Ot V72.83 EXAM PRE-OPERATIVE NEC 07/03/2017 SADAF JACOBS MD Ot V74.8 SCREEN-BACTERIAL DIS NEC 07/03/2017 MARYSE VIVAS N Ot 457.1 OTHER LYMPHEDEMA 07/03/2017 MARYSE VIVAS N Ot 723.1 CERVICALGIA 07/03/2017 MARYSE VIVAS N Ot V10.82 HX-MALIG SKIN MELANOMA 07/03/2017 MARYSE VIVAS N Ot V58.69 OTH MED,LT,CURRENT USE 07/03/2017 SANEGETHA BOBAN N Ot V67.1 RADIOTHERAPY FOLLOW-UP 07/03/2017 [...] FO 07/03/2017 MARYSE VIVAS Ot 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 RETIREMENT (CURRENT) DRUG THERAPY 07/03/2017 MARYSE VIVAS Ot [...] Ot Z92.3 PERSONAL HISTORY OF IRRADIATION 07/05/2017 [facility] ROSALINE S Ot 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 [...] LEACH Ot F41.9 ANXIETY DISORDER, UNSPECIFIED 07/05/2017 [facility] Rucker Ot G43.909 MIGRAINE, UNSP, NOT INTRACTABLE, WITHOUT 07/05/2017 [facility] LEACH Chaim Ot I10 ESSENTIAL (PRIMARY) HYPERTENSION 07/05/2017 [facility] ROSALINE LEACH Chaim Ot K21.9 GASTRO-ESOPHAGEAL REFLUX DISEASE WITHOUT 07/05/2017 [facility] AL[facility] LEACHROSALINE Chaim Ot K44.9 DIAPHRAGMATIC HERNIA WITHOUT OBSTRUCTION 07/05/2017 [facility] DO ROSALINE S Ot K58.9 IRRITABLE BOWEL SYNDROME WITHOUT DIARRHE 07/05/2017 [facility] ALBERROSALINE Chaim Ot M54.10 RADICULOPATHY, SITE UNSPECIFIED 07/05/2017 [facility] ROSALINE LEACH Ot M79.7 FIBROMYALGIA 07/05/2017 [facility] ROSALINE LEACH Chaim Ot R13.10 DYSPHAGIA, UNSPECIFIED 07/05/2017 [facility] ROSALINE LEACH Chaim Ot Z85.820 PERSONAL HISTORY OF MALIGNANT MELANOMA O 07/05/2017 [facility] ROSALINE Rucker Ot Z92.21 PERSONAL HISTORY OF ANTINEOPLASTIC CHEMO 07/05/2017 [facility] ROSALINE Rucker Ot Z92.3 PERSONAL HISTORY OF IRRADIATION 07/10/2017 [facility] ROSALINE LEACH Chaim Ot 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 07/10/2017 [facility] ROSALINE LEACH Chaim Ot B02.9 ZOSTER WITHOUT COMPLICATIONS 07/10/2017 [facility] ROSALINE LEACH Chaim Ot F32.9 MAJOR DEPRESSIVE DISORDER, SINGLE EPISOD 07/10/2017 [facility] ALBER LEACHROSALINE Chaim Ot F41.9 ANXIETY DISORDER, UNSPECIFIED 07/10/2017 [facility] ALBER LEACHROSALINE Chaim Ot G43.909 MIGRAINE, UNSP, NOT INTRACTABLE, WITHOUT 07/10/2017 [facility] ROSALINE LEACH Chaim Ot I10 ESSENTIAL (PRIMARY) HYPERTENSION 07/10/2017 [facility] ROSALINE LEACH Chaim Ot K21.9 GASTRO-ESOPHAGEAL REFLUX DISEASE WITHOUT 07/10/2017 [facility] ROS[facility] LEACH Chaim Ot K44.9 DIAPHRAGMATIC HERNIA WITHOUT OBSTRUCTION 07/10/2017 [facility] ROSALINE LEACH Chaim Ot K58.9 IRRITABLE [...] PERSONAL HISTORY OF MALIGNANT MELANOMA O 07/13/2017 ELHAM FLOR DOLINE Chaim Ot Z92.21 PERSONAL HISTORY OF ANTINEOPLASTIC CHEMO 07/13/2017 MARISOLMADHU ELHAMROSALINE S Ot Z92.3 PERSONAL HISTORY OF IRRADIATION 08/30/2017 MARYSE VIVAS N Ot B00.9 HERPESVIRAL INFECTION, UNSPECIFIED 08/30/2017 MARYSE VIVAS N Ot E55.9 VITAMIN D DEFICIENCY, UNSPECIFIED 08/30/2017 MARYSE VIVAS N Ot F17.210 NICOTINE DEPENDENCE, CIGARETTES, UNCOMPL 08/30/2017 MARYSE VIVAS N Ot G62.9 POLYNEUROPATHY, UNSPECIFIED 08/30/2017 SANGEETHAMARYSE N Ot R30.0 DYSURIA 08/30/2017 SANGEETHAMARYSE SANTIAGO N Ot R39.15 URGENCY OF URINATION 08/30/2017 MARYSE VIVAS N Ot Z08 ENCNTR FOR FOLLOW-UP EXAM AFTER TRTMT FO 08/30/2017 MARYSE VIVAS N Ot 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 RETIREMENT (CURRENT) DRUG THERAPY 08/30/2017 SANGEETHA, MARYSE N Ot Z85.820 PERSONAL HISTORY OF MALIGNANT MELANOMA O 10/31/2017 MARYSE VIVAS N Ot B00.9 HERPESVIRAL INFECTION, UNSPECIFIED 10/31/2017 SANGEETHAMARYSE SANTIAGO N Ot E55.9 VITAMIN D DEFICIENCY, UNSPECIFIED 10/31/2017 SANGEETHAMARYSE SANTIAGO N Ot F17.210 NICOTINE DEPENDENCE, CIGARETTES, UNCOMPL 10/31/2017 SANGEETHAMARYSE SANTIAGO N Ot G62.9 POLYNEUROPATHY, UNSPECIFIED 10/31/2017 SANGEETHAMARYSE SANTIAGO N Ot R30.0 DYSURIA 10/31/2017 SANGEETHA, STEFFANIEJE N Ot R39.15 URGENCY OF URINATION 10/31/2017 MARYSE VIVAS N Ot Z08 ENCNTR FOR FOLLOW-UP EXAM AFTER TRTMT FO 10/31/2017 MARYSE VIVAS N Ot 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 10/31/2017 SANGEETHA BOBJE N Ot Z85.820 PERSONAL HISTORY OF MALIGNANT MELANOMA O 11/06/2017 MARYSE VIVAS N Ot B00.9 HERPESVIRAL INFECTION, UNSPECIFIED 11/06/2017 SANGEETHA MARYSE N Ot E55.9 VITAMIN D DEFICIENCY, UNSPECIFIED 11/06/2017 SANGEETHA, BOBAN N Ot F17.210 NICOTINE DEPENDENCE, CIGARETTES, UNCOMPL 11/06/2017 MARYSE VIVAS Ot G62.9 POLYNEUROPATHY, UNSPECIFIED 11/06/2017 MARYSE VIVAS Ot R30.0 DYSURIA 11/06/2017 MARYSE VIVAS Ot R39.15 URGENCY OF URINATION 11/06/2017 MARYSE VIVAS Ot Z08 ENCNTR FOR FOLLOW-UP EXAM AFTER TRTMT FO 11/06/2017 MARYSE VIVAS Ot 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 RETIREMENT (CURRENT) DRUG THERAPY 11/06/2017 MARYSE VIVAS Ot Z85.820 PERSONAL HISTORY OF MALIGNANT MELANOMA O 01/22/2018 ARLENE LAM, SADAF Mcdaniel Ot E04.1 NONTOXIC SINGLE THYROID NODULE 01/22/2018 ARLENE LAM, SADAF Mcdaniel Ot N83.202 UNSPECIFIED OVARIAN CYST, LEFT SIDE 01/22/2018 ARLENE LAM, SADAF Mcdaniel Ot Z90.710 ACQUIRED ABSENCE OF BOTH CERVIX AND UTER 02/07/2018 ANA LAURA EDWARD CONTROLS DESIGNER Ot C43.4 MALIGNANT MELANOMA OF SCALP AND NECK 02/07/2018 ANA LAURA EDWARD CONTROLS DESIGNER Ot R10.2 PELVIC AND PERINEAL PAIN 02/07/2018 ANA LAURA EDWARD CONTROLS DESIGNER Ot R91.1 SOLITARY PULMONARY NODULE 02/07/2018 ANA LAURA EDWARDP Ot Z90.49 ACQUIRED ABSENCE OF OTHER SPECIFIED PART Procedures Code Description Performed By Performed On 57.32 CYSTOSCOPY NEC 02/23/2014 70.21 VAGINOSCOPY 02/23/2014 [id number] INSERTION OF INFUSION DEV INTO SUP VENA 04/17/2016 [id number] INSERTION OF INFUSION DEV INTO SUP VENA 09/18/2016 [id number] INSERTION OF INFUSION DEVICE INTO R ATRI 07/06/2017 [id number] INSERT OF TUNNEL VAD INTO CHEST SUBCU/FA [...] 5-8.5 Urine-Protein 2+ Negative Urine-RBC 20-40/HPF Urine-Specific Mereta >=1.030 1.000-1.030 Urine-WBC TNTC Urobilinogen 1.0 E.U./dL 0.2-1.0 Bacterial blood culture - 04/13/16 23:35 Bacterial blood culture NG NRG Complete blood [...] - 04/14/16 00:06 Bacterial blood culture NG NR Complete blood count (CBC) with automated [...] . NRG Bacterial blood culture SEE COMMEN NR Bacterial susceptibility panel - 10/02/16 00:40 Gentamicin [...] susceptibility test by minimum inhibitory concentration - NRG Cefepime susceptibility test by minimum inhibitory concentration [...] (T4) free measurement (mass/volume) 0.95 ng/dL 0.70-1.48 [id number] - 03/29/17 08:02 Serum or plasma urea [...] TEXT ENTRY 2 SUSCEPTIBILITY REPORTED AT 0906,08-04-17 NR RML Sensitivity Panel - 08/02/17 13:35 Gentamicin susceptibility [...] and clavulanate potassium susc MALCOLM = NRG Complete blood count (CBC) with automated white blood cell (WBC) differential - 09/22/17 06:55 Blood leukocytes automated count (number/volume) 6.1 10*3/uL 4.3-11.0 Blood erythrocytes automated count (number/volume) 3.67 10*6/uL 4.35-5.85 Venous blood hemoglobin measurement (mass/volume) 11.8 g/dL 11.5-16.0 Blood hematocrit (volume fraction) 35 % 35-52 Automated erythrocyte mean corpuscular volume 96 [foz_us] 80-99 Automated erythrocyte mean corpuscular hemoglobin (mass per erythrocyte) 32 pg 25-34 Automated erythrocyte mean corpuscular hemoglobin concentration measurement ( mass/volume) 34 g/dL 32-36 Automated erythrocyte distribution width ratio 12.5 % 10.0-14.5 Automated blood platelet count (count/volume) 232 10*3/uL 130-400 Automated blood platelet mean volume measurement 8.3 [foz_us] 7.4-10.4 Automated blood neutrophils/100 leukocytes 62 % 42-75 Automated blood lymphocytes/100 leukocytes 28 % 12-44 Blood monocytes/100 leukocytes 8 % 0-12 Automated blood eosinophils/100 leukocytes 3 % 0-10 Automated blood basophils/100 leukocytes 0 % 0-10 Blood neutrophils automated count (number/volume) 3.8 10*3 1.8-7.8 Blood lymphocytes automated count (number/volume) 1.7 10*3 1.0-4.0 Blood monocytes automated count (number/volume) 0.5 10*3 0.0-1.0 Automated eosinophil count 0.2 10*3/uL 0.0-0.3 Automated blood basophil count (count/volume) 0.0 10*3/uL 0.0-0.1 Comprehensive metabolic panel - 09/22/17 06:55 Serum or plasma sodium measurement (moles/volume) 136 mmol/L 135-145 Serum or plasma potassium measurement (moles/volume) 3.9 mmol/L 3.6-5.0 Serum or plasma chloride measurement (moles/volume) 103 mmol/L 98-107 Carbon dioxide 26 mmol/L 21-32 Serum or plasma anion gap determination (moles/volume) 7 mmol/L 5-14 Serum or plasma urea nitrogen measurement (mass/volume) 14 mg/dL 7-18 Serum or plasma creatinine measurement (mass/volume) 0.70 mg/dL 0.60-1.30 Serum or plasma urea nitrogen/creatinine mass ratio 20 NRG Serum or plasma creatinine measurement with calculation of estimated glomerular filtration rate > NRG Serum or plasma glucose measurement (mass/volume) 84 mg/dL 70-105 Serum or plasma calcium measurement (mass/volume) 8.6 mg/dL 8.5-10.1 Serum or plasma total bilirubin measurement (mass/volume) 0.3 mg/dL 0.1-1.0 Serum or plasma alkaline phosphatase measurement (enzymatic activity/volume) 67 U/L 40-136 Serum or plasma aspartate aminotransferase measurement (enzymatic activity/ volume) 9 U/L 5-34 Serum or plasma alanine aminotransferase measurement (enzymatic activity/volume ) 11 U/L 0-55 Serum or plasma protein measurement (mass/volume) 5.6 g/dL 6.4-8.2 Serum or plasma albumin measurement (mass/volume) 3.5 g/dL 3.2-4.5 Encounters ACCT No. Visit Date/Time Discharge Status Pt. Type Provider Facility Loc./Unit Complaint [id number] 02/06/2018 12:48:00 02/06/2018 23:59:59 CLS Outpatient ANA LAURA EDWARDP [facility] RAD MALIGNANT MELANOMA [id number] 01/31/2018 12:36:00 01/31/2018 23:59:59 CLS Outpatient MARYSE VIVAS [facility] ONC [id number] 01/21/2018 14:21:00 01/21/2018 23:59:59 CLS Outpatient SADAF JACOBS MD [facility] RAD LT THYROID NODULE [id number] 01/18/2018 11:53:00 01/18/2018 23:59:59 CLS Preadmit BEN CAMARGO APRN [facility] RAD LLQ PAIN/PELVIS [id number] 08/02/2017 12:55:00 10/31/2017 00:01:00 DIS Outpatient MARYSE VIVAS [facility] ONC [id number] 07/03/2017 19:24:00 07/13/2017 09:00:00 DIS Inpatient ROSALINE FLOR DO [facility] 4TH RECURRENT HERPES ZOSTER INFECTION R FACE [id number] 04/23/2017 11:35:00 04/23/2017 23:59:59 CLS Outpatient SADAF JACOBS MD [facility] RAD THYROID NODULES [id number] 04/04/2017 10:59:00 04/04/2017 23:59:59 CLS Outpatient ROSALINE FLOR DO S [facility] RAD RIGHT SUBCLAVIAN/ VERTEBRAL ARTERY STENOSIS [id number] 01/04/2017 10:53:00 04/04/2017 00:01:00 DIS Outpatient MARYSE VIVAS [facility] ONC [id number] 03/29/2017 07:47:00 03/29/2017 23:59:59 CLS Outpatient ROSALINE FLOR DO [facility] RAD H93.11 [id number] 01/30/2017 11:35:00 01/30/2017 23:59:59 CLS Outpatient SADAF JACOBS MD [facility] RAD LT THYROID NODULE [id number] 01/22/2017 14:12:00 01/22/2017 23:59:59 CLS Outpatient SADAF JACOBS MD [facility] RAD THYROID NODULE [id number] 12/04/2016 08:40:00 12/04/2016 23:59:59 CLS Outpatient ROSALINE FLOR DO [facility] RAD CEPHALGIA,HX OF MALIGNANT MELANOMA [id number] 09/13/2016 14:54:00 10/06/2016 13:04:00 DIS Inpatient MARYSE VIVAS [facility] 4TH HERPES ZOSTER OUTBREAK TO FACE [id number] 04/12/2016 10:00:00 07/11/2016 00:01:00 DIS Outpatient MARYSE VIVAS [facility] ONC [id number] 04/20/2016 16:15:00 04/25/2016 17:30:00 DIS Inpatient MARYSE VIVAS [facility] 4TH SWB HERPES ZOSTER [id number] 04/14/2016 01:15:00 04/20/2016 16:15:00 DIS Inpatient MARYSE VIVAS [facility] 4TH FACIAL SHINGLES W INTRACTABLE PAIN [id number] 10/11/2015 09:53:00 01/09/2016 00:01:00 DIS Outpatient MARYSE VIVAS [facility] ONC [id number] 02/23/2015 11:41:00 05/24/2015 00:01:00 DIS Outpatient MARYSE VIVAS [facility] ONC [id number] 03/09/2015 12:54:00 03/09/2015 23:59:59 CLS Outpatient MARYSE VIVAS [facility] FS [id number] 10/15/2014 14:17:00 11/18/2014 00:01:00 DIS Outpatient MARYSE VIVAS [facility] ONC [id number] 10/27/2014 11:02:00 10/27/2014 23:59:59 CLS Outpatient MARYSE VIVAS [facility] FS [id number] 08/31/2014 11:13:00 08/31/2014 23:59:59 CLS Outpatient MARYSE VIVAS [facility] RAD HX OF PUL NODULE [id number] 07/21/2014 14:03:00 07/21/2014 23:59:59 CLS Outpatient MARYSE VIVAS [facility] FS [id number] 05/19/2014 10:40:00 05/19/2014 23:59:59 CLS Outpatient MARYSE VIVAS [facility] RAD HX OF MALIGNANT MELANOMA [id number] 04/07/2014 10:42:00 04/07/2014 23:59:59 CLS Outpatient MARYSE VIVAS [facility] RAD ABD PAIN, CRAMPING [id number] 03/10/2014 15:08:00 03/10/2014 23:59:59 CLS Outpatient MARYSE VIVAS [facility] FS [id number] 02/14/2014 13:58:00 02/27/2014 16:35:00 DIS Inpatient MARYSE VIVAS [facility] [facility] 4TH [place],SWE[employer]ING OF [place] [id number] 02/06/2014 08:52:00 02/07/2014 08:00:00 DIS Outpatient SADAF JACOBS MD [facility] SDC CHRONIC SINUSITIS; HYPERTHROPY TURBINATES [id number] 02/03/2014 20:30:00 02/05/2014 19:00:00 DIS Inpatient MARYSE VIVAS [facility] 4TH R FACIAL LYMPHEDEMA, INTRACTABLE PAIN [id number] 02/04/2014 08:45:00 02/04/2014 23:59:59 CLS Preadmit LAURO HUYNH MD [facility] RAD REOCCURING UTI [id number] 02/02/2014 08:20:00 02/02/2014 23:59:59 CLS Outpatient SADAF JACOBS MD [facility] PREOP CHRONIC SINUSITIS; HYPERTROPHY TURBINATES [id number] 02/02/2014 20:28:00 02/02/2014 22:18:00 DIS Emergency HIRAL PRESTON [facility] ER ALLERGIC REACTION [id number] 12/30/2013 08:22:00 12/30/2013 23:59:59 CLS Outpatient MAISHA PIZANO MD [facility] RAD CHRONIC SINUSITIS [id number] 07/02/2013 03:45:00 09/29/2013 00:01:00 DIS Outpatient MARYSE VIVAS [facility] ONC [id number] 09/03/2013 09:06:00 09/03/2013 23:59:59 CLS Outpatient TYLOR MENDOZA MD [facility] RAD NECK PAIN [id number] 07/08/2013 09:20:00 07/08/2013 23:59:59 CLS Outpatient MARYSE VIVAS [facility] RAD MELANOMA [id number] 07/01/2013 14:45:00 07/08/2013 14:07:00 DIS Outpatient TYLOR MENDOZA MD [facility] REHAB CERVICALGIA [id number] 06/02/2013 12:51:00 06/02/2013 23:59:59 CLS Outpatient MARYSE VIVAS [facility] ONC [id number] 04/29/2013 13:44:00 04/29/2013 17:00:00 DIS Outpatient JONAH LEACHYOMAIRA [facility] SDC DYSPHAGIA [id number] 04/23/2013 10:51:00 04/23/2013 23:59:59 CLS Outpatient JONAH LEACHYOMAIRA [facility] PREOP DYSPHAGIA [id number] 01/27/2013 12:19:00 01/27/2013 23:59:59 CLS Outpatient TYLOR MENDOZA MD [facility] CARD THORACALGIA [id number] 12/17/2012 07:49:00 12/17/2012 23:59:59 CLS Outpatient ANA LAURA EDWARDP [facility] RAD MALIGNANT MELANOMA [id number] 12/13/2012 08:01:00 12/13/2012 23:59:59 CLS Outpatient TYLOR MENDOZA MD [facility] CARD DDD LUMBAR [id number] 12/09/2012 13:58:00 12/09/2012 23:59:59 CLS Outpatient ANA LAURA EDWARDP [facility] ONC [id number] 10/02/2012 12:29:00 10/02/2012 23:59:59 CLS Outpatient ALYSIA ARIAS APRN [facility] RAD LUMBAR RADICULOPATHY [id number] 09/23/2017 10:26:00 Document Registration [id number] 05/08/2014 10:16:00 Document Registration [id number] 04/07/2014 10:42:00 Document Registration [id number] 04/07/2014 10:42:00 Document Registration [id number] 04/07/2014 10:42:00 Document Registration [id number] 04/07/2014 10:42:00 Document Registration [id number] 02/03/2014 14:04:00 Document Registration [id number] 01/21/2014 08:48:00 Document Registration [id number] 09/30/2013 00:00:00 Document Registration [id number] 05/23/2012 14:20:00 Document Registration [id number] 03/22/2012 15:21:00 Document Registration [id number] 01/22/2012 10:34:00 Document Registration [id number] 10/12/2011 10:22:00 Document Registration [id number] 07/11/2011 12:52:00 Document Registration [id number] 06/29/2011 13:51:00 Document Registration [id number] 03/02/2011 13:18:00 Document Registration [id number] 02/03/2011 10:49:00 Document Registration [id number] 02/02/2011 13:32:00 Document Registration [id number] 11/21/2010 09:32:00 Document Registration [id number] 11/09/2010 14:36:00 Document Registration [id number] 08/01/2010 12:59:00 Document Registration [id number] 05/02/2010 14:07:00 Document Registration [id number] 04/29/2010 14:06:00 Document Registration [id number] 04/02/2010 07:51:00 Document Registration [id number] 02/26/2010 19:10:00 Document Registration [id number] 02/25/2010 10:52:00 Document Registration [id number] 02/24/2010 07:20:00 Document Registration [id number] 02/21/2010 15:26:00 Document Registration [id number] 02/01/2010 19:54:00 Document Registration [id number] 01/21/2010 17:18:00 Document Registration [id number] 01/21/2010 14:45:00 Document Registration [id number] 12/13/2009 10:12:00 Document Registration [id number] 09/21/2009 13:30:00 Document Registration [id number] 09/15/2009 13:56:00 Document Registration [id number] 06/25/2009 09:44:00 Document Registration [id number] 03/11/2009 14:06:00 Document Registration [id number] 12/03/2008 10:30:00 Document Registration [id number] 06/04/2008 00:00:00 Document Registration 10/201602/04/2018 09:55:58 02/04/2018 23:59:59 Rosaline Paredes [id number] 11/19/2015 10:17:34 11/19/2015 23:59:59 [facility] Outpatient [id number] 03/02/2016 15:42:00 03/02/2016 23:59:00 DIS Outpatient Rosaline Flor
[2018-02-11] MEDS ORDERED: CEFD300C3 PO (23:53)
[2018-02-11] MEDS ORDERED: ATOR10TA66 PO (23:53)
[2018-02-11] MEDS ORDERED: OXYB5TAB9 PO (23:53)
[2018-02-12] MEDS ORDERED: KETOROLAC 30 MG/ML VIAL IVP STA (00:16)
[2018-02-12] MEDS ORDERED: ACYCLOVIR INJECTION 500 MG in NS (IVPB) 250 ML IV SCH (00:30)
[2018-02-12 00:58] LABS: BASOPHILS % (AUTO) 0 % (0-10); EOSINOPHILS # (AUTO) 0.2 10^3/uL (0.0-0.3); EOSINOPHILS % (AUTO) 3 % (0-10); HEMATOCRIT 38 % (35-52); HEMOGLOBIN 13.1 G/DL (11.5-16.0); LYMPHOCYTES # (AUTO) 1.2 X 10^3 (1.0-4.0); LYMPHOCYTES % (AUTO) 16 % (12-44); MEAN CORPUSCULAR HEMOGLOBIN 31 PG (25-34); MEAN CORPUSCULAR HGB CONC 34 G/DL (32-36); MEAN CORPUSCULAR VOLUME 90 FL (80-99); MEAN PLATELET VOLUME 8.3 FL (7.4-10.4); MONOCYTES # (AUTO) 0.5 X 10^3 (0.0-1.0); MONOCYTES % (AUTO) 6 % (0-12); NEUTROPHILS # (AUTO) 5.6 X 10^3 (1.8-7.8); NEUTROPHILS % (AUTO) 75 % (42-75); PLATELET COUNT 319 10^3/uL (130-400); RED BLOOD COUNT 4.22 10^6/uL (4.35-5.85); RED CELL DISTRIBUTION WIDTH 12.6 % (10.0-14.5); WHITE BLOOD COUNT 7.5 10^3/uL (4.3-11.0)
[2018-02-12 01:21] LABS: ALANINE AMINOTRANSFERASE 17 U/L (0-55); ALBUMIN 4.4 GM/DL (3.2-4.5); ALKALINE PHOSPHATASE 87 U/L (40-136); BILIRUBIN,TOTAL 0.4 MG/DL (0.1-1.0); BUN/CREATININE RATIO 17; CARBON DIOXIDE 20 MMOL/L (21-32); CHLORIDE 104 MMOL/L (98-107); CREATININE SERUM 0.86 MG/DL (0.60-1.30); GFR ESTIMATED > 60; GLUCOSE 105 MG/DL (70-105); POTASSIUM 3.9 MMOL/L (3.6-5.0); SODIUM 137 MMOL/L (135-145); TOTAL PROTEIN 7.3 GM/DL (6.4-8.2)
--- OUTSIDE RECORDS SUMMARY | 2018-02-12 01:37 | XMS REPORT | Clinical Summary ---
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 Class B Name Role Phone Faizan Mann MD Unavailable Ammon Griffith MD PCP Rosa Elena Mendez RN Unavailable Unavailable Miley Thayer MD Unavailable Jhonny uSnshine MD Unavailable Stephen Palacio MD Unavailable Kris [...] in the Health Information Management department at [phone] for further assistance in locating additional records.[facility] Allergies Comments Active Allergy Reactions Severity Noted Date Bxuing-Wxst-Xt RASH 02/07/2014 Ooih-Lt-Crdwvtq Promethazine UNKNOWN 04/05/2010 Vancomycin ITCHING 04/06/2010 Medications [...] Type Phone Address Plan / Group BCBS [facility] xxxxxxxxxxxx PPO PREF CARE BLUE MEDICARE MEDICARE xxxxxxxxxx Medicare PART A Advance Directives Patient has advance care planning documents, and code status on file. For more information, please contact: [facility] [address] [facility] [address] [place] [address] Date Inactivated Comments Code Status Date Activated [...]
--- OUTSIDE RECORDS SUMMARY | 2018-02-12 01:42 | XMS REPORT | Continuity of Care Document ---
Author Author [facility] Organization [facility] Address Unknown Phone Unavailable Allergies Active Description Code Type Severity Reaction Onset Reported/Identified Relationship to Patient Clinical Status Yes NKANo Known Allergies NKA Miscellaneous Allergy Unknown N/A 03/16/2008 Yes promethazine [id number] Drug Allergy Unknown N/A 04/13/2016 Yes vancomycin [id number] Drug Allergy Unknown RASH 09/13/2016 Medications There [...] Ot 054.9 HERPES SIMPLEX NOS 02/05/2014 SANGEETHASTEFFANIE ASNTIAGOAN N Ot 457.1 OTHER LYMPHEDEMA 02/05/2014 SANGEETHA, [...] 04/07/2014 Ot V67.1 04/07/2014 ANA LAURA EDWARD MAINFRAME SOFTWARE DEVELOPER Ot 054.9 04/07/2014 ANA LAURA EDWARD MAINFRAME SOFTWARE DEVELOPER Ot 529.6 04/07/2014 ANA LAURA EDWARD MAINFRAME SOFTWARE DEVELOPER Ot 723.4 04/07/2014 ANA LAURA EDWARD MAINFRAME SOFTWARE DEVELOPER Ot V10.82 04/07/2014 ANA LAURA EDWARD MAINFRAME SOFTWARE DEVELOPER Ot V58.69 04/07/2014 ANA LAURA EDWARD MAINFRAME SOFTWARE DEVELOPER Ot V67.1 04/07/2014 ANA LAURA EDWARD MAINFRAME SOFTWARE DEVELOPER Ot 172.9 04/07/2014 TYLOR MENDOZA MD Ot [...] FO 05/24/2015 SANGEETHAMARYSE N Ot 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 HALF-WAY (CURRENT) DRUG THERAPY 05/24/2015 SANGEETHAMARYSE N Ot Z85.820 PERSONAL HISTORY OF MALIGNANT MELANOMA O 10/04/2015 SANGEETHAMARYSE N Ot F17.210 NICOTINE DEPENDENCE, CIGARETTES, UNCOMPL 10/04/2015 SANGEETHAMARYSE SANTIAGO N Ot Z08 ENCNTR FOR FOLLOW-UP EXAM AFTER TRTMT FO 10/04/2015 MARYSE VIVAS N Ot 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 TOOTH CUTTER SPUR (CURRENT) DRUG THERAPY 10/04/2015 MARYSE VIVAS Amrita Ot Z85.820 PERSONAL HISTORY OF MALIGNANT MELANOMA O 11/04/2015 MARYSE VIVAS Amrita Ot F17.210 NICOTINE DEPENDENCE, CIGARETTES, UNCOMPL 11/04/2015 MARYSE VIVAS Amrita Ot Z08 ENCNTR FOR FOLLOW-UP EXAM AFTER TRTMT FO 11/04/2015 MARYSE VIVAS Amrita Ot 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 TOOTH CUTTER SPUR (CURRENT) DRUG THERAPY 11/04/2015 MARYSE VIVAS Amrita Ot Z85.820 PERSONAL HISTORY OF MALIGNANT MELANOMA O 01/09/2016 MARYSE VIVAS Amrita Ot F17.210 NICOTINE DEPENDENCE, CIGARETTES, UNCOMPL 01/09/2016 MARYSE VIVAS Amrita Ot Z08 ENCNTR FOR FOLLOW-UP EXAM AFTER TRTMT FO 01/09/2016 MARYSE VIVAS Amrita Ot 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 TOOTH CUTTER SPUR (CURRENT) DRUG THERAPY 01/09/2016 MARYSE VIVAS Amrita Ot Z85.820 PERSONAL HISTORY OF MALIGNANT MELANOMA O 04/10/2016 MARYSE VIVAS Amrita Ot F17.210 NICOTINE DEPENDENCE, CIGARETTES, UNCOMPL 04/10/2016 MARYSE VIVAS N Ot Z08 ENCNTR FOR FOLLOW-UP EXAM AFTER TRTMT FO 04/10/2016 MARYSE VIVAS Amrita Ot 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 HALF-WAY (CURRENT) DRUG THERAPY 04/10/2016 MARYSE VIVAS Amrita Ot Z85.820 PERSONAL HISTORY OF MALIGNANT MELANOMA O 04/13/2016 MARYSE VIVAS Amrita Ot F17.210 NICOTINE DEPENDENCE, CIGARETTES, UNCOMPL 04/13/2016 MARYSE VIVAS Amrita Ot Z08 ENCNTR FOR FOLLOW-UP EXAM AFTER TRTMT FO 04/13/2016 MARYSE VIVAS Amrita Ot 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 HALF-WAY (CURRENT) DRUG THERAPY 04/13/2016 MARYSE VIVAS Amrita [...] V67.1 RADIOTHERAPY FOLLOW-UP 04/14/2016 ANA LAURA EDWARD MAINFRAME SOFTWARE DEVELOPER Ot 054.9 HERPES SIMPLEX NOS 04/14/2016 ANA LAURA EDWARD MAINFRAME SOFTWARE DEVELOPER Ot 529.6 GLOSSODYNIA 04/14/2016 ANA LAURA EDWARD MAINFRAME SOFTWARE DEVELOPER Ot 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 NEURITIS NOS 04/14/2016 ANA LAURA EDWARD MAINFRAME SOFTWARE DEVELOPER Ot V10.82 HX-MALIG SKIN MELANOMA 04/14/2016 ANA LAURA EDWARD MAINFRAME SOFTWARE DEVELOPER Ot V58.69 OTH MED,LT,CURRENT USE 04/14/2016 ANA LAURA EDWARD MAINFRAME SOFTWARE DEVELOPER Ot V67.1 RADIOTHERAPY FOLLOW-UP 04/14/2016 ANA LAURA EDWARD MAINFRAME SOFTWARE DEVELOPER Ot 172.9 MALIG MELANOMA SKIN NOS 04/14/2016 [...] TURBINAT 04/14/2016 SADAF JACOBS MD Ot V72.81 [id number] CARDIOVASCULAR 04/14/2016 SADAF JACOBS MD Ot V72.83 [...] FO 04/14/2016 MARYSE VIVAS Ot 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 HALF-WAY (CURRENT) DRUG THERAPY 04/14/2016 MARYSE VIVAS N [...] Ot B02.9 ZOSTER WITHOUT COMPLICATIONS 04/20/2016 SANGEETHA, STEFFNAIEJE N Ot F32.9 MAJOR DEPRESSIVE DISORDER, SINGLE [...] FO 04/24/2016 MARYSE VIVAS Ot 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 TOOTH CUTTER SPUR (CURRENT) DRUG THERAPY 04/24/2016 MARYSE VIVAS Ot [...] FO 05/10/2016 MARYSE VIVAS Ot 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 HALF-WAY (CURRENT) DRUG THERAPY 05/10/2016 MARYSE VIVAS Ot Z85.820 PERSONAL HISTORY OF MALIGNANT MELANOMA O 07/11/2016 MARYSE VIVAS Ot F17.210 NICOTINE DEPENDENCE, CIGARETTES, UNCOMPL 07/11/2016 MARYSE VIVAS Ot Z08 ENCNTR FOR FOLLOW-UP EXAM AFTER TRTMT FO 07/11/2016 MARYSE VIVAS Ot 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 HALF-WAY (CURRENT) DRUG THERAPY 07/11/2016 MARYSE VIVAS Ot Z85.820 PERSONAL HISTORY OF MALIGNANT MELANOMA O 09/13/2016 MARYSE VIVAS Ot F17.210 NICOTINE DEPENDENCE, CIGARETTES, UNCOMPL 09/13/2016 MARYSE VIVAS Ot Z08 ENCNTR FOR FOLLOW-UP EXAM AFTER TRTMT FO 09/13/2016 MARYSE VIVAS Ot 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 HALF-WAY (CURRENT) DRUG THERAPY 09/13/2016 MARYSE VIVAS Ot [...] V67.1 RADIOTHERAPY FOLLOW-UP 12/04/2016 ANA LAURA EDWARD MAINFRAME SOFTWARE DEVELOPER Ot 054.9 HERPES SIMPLEX NOS 12/04/2016 ANA LAURA EDWARD MAINFRAME SOFTWARE DEVELOPER Ot 529.6 GLOSSODYNIA 12/04/2016 ANA LAURA EDWARD MAINFRAME SOFTWARE DEVELOPER Ot 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 NEURITIS NOS 12/04/2016 ANA LAURA EDWARD MAINFRAME SOFTWARE DEVELOPER Ot V10.82 HX-MALIG SKIN MELANOMA 12/04/2016 ANA LAURA EDWARD MAINFRAME SOFTWARE DEVELOPER Ot V58.69 OTH MED,LT,CURRENT USE 12/04/2016 ANA LAURA EDWARD MAINFRAME SOFTWARE DEVELOPER Ot V67.1 RADIOTHERAPY FOLLOW-UP 12/04/2016 ANA LAURA EDWARD MAINFRAME SOFTWARE DEVELOPER Ot 172.9 MALIG MELANOMA SKIN NOS 12/04/2016 [...] V10.82 HX-MALIG SKIN MELANOMA 12/04/2016 SANGEETHA STEFFANIEJE mArita Ot V58.69 OTH MED,LT,CURRENT USE 12/04/2016 SANGEETHAMARYSE [...] 12/04/2016 ARLENE LAM, SADAF Mcdaniel Ot V72.81 [id number] CARDIOVASCULAR 12/04/2016 SADAF JACOBS MD Ot V72.83 [...] 12/04/2016 MARYSE VIVAS Amrita Ot 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 HALF-WAY (CURRENT) DRUG THERAPY 12/04/2016 MARYSE VIVAS Amrita [...] Amrita Ot B00.9 HERPESVIRAL INFECTION, UNSPECIFIED 01/05/2017 MARYES VIVAS Amrita Ot E55.9 VITAMIN D DEFICIENCY, UNSPECIFIED 01/05/2017 MARYSE VIVAS Amrita Ot F17.210 NICOTINE DEPENDENCE, CIGARETTES, UNCOMPL 01/05/2017 MARYSE VIVAS Amrita Ot G62.9 POLYNEUROPATHY, UNSPECIFIED 01/05/2017 MARYSE VIVAS Amrita Ot Z08 ENCNTR FOR FOLLOW-UP EXAM AFTER TRTMT FO 01/05/2017 AMRYSE VIVAS Amrita Ot 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 HALF-WAY (CURRENT) DRUG THERAPY 01/05/2017 MARYSE VIVAS Amrita [...] 01/16/2017 MARYSE VIVAS N Ot 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 HALF-WAY (CURRENT) DRUG THERAPY 01/16/2017 SANGEETHA STEFFANIEJE N [...] 02/01/2017 SANGEETHA MARYSE Crowe Ot 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 HALF-WAY (CURRENT) DRUG THERAPY 02/01/2017 SANGEETHAMARYSE N Ot [...] FO 04/04/2017 MARYSE VIVAS Ot 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 TOOTH CUTTER SPUR (CURRENT) DRUG THERAPY 04/04/2017 MARYSE VIVAS Ot [...] HERPES SIMPLEX NOS 04/04/2017 ANA LAURA EDWARD MAINFRAME SOFTWARE DEVELOPER Ot 529.6 GLOSSODYNIA 04/04/2017 ANA LAURA EDWARD MAINFRAME SOFTWARE DEVELOPER Ot 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 NEURITIS NOS 04/04/2017 ANA LAURA EDWARDP Ot V10.82 HX-MALIG SKIN MELANOMA 04/04/2017 ANA LAURA EDWARD Ot V58.69 OTH MED,LT,CURRENT USE 04/04/2017 ANA LAURA EDWARD MAINFRAME SOFTWARE DEVELOPER Ot V67.1 RADIOTHERAPY FOLLOW-UP 04/04/2017 ANA LAURA [...] 04/04/2017 ARLENE LAM, SADAF Mcdaniel Ot V72.81 [id number] CARDIOVASCULAR 04/04/2017 ARLENE LAM, SADAF Mcdaniel Ot [...] FO 04/04/2017 MARYSE VIVAS Ot 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 HALF-WAY (CURRENT) DRUG THERAPY 04/04/2017 MARYSE VIVAS Ot [...] FO 04/05/2017 MARYSE VIVAS Ot 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 HALF-WAY (CURRENT) DRUG THERAPY 04/05/2017 MARYSE VIVAS Ot [...] V67.1 RADIOTHERAPY FOLLOW-UP 05/11/2017 ANA LAURA EDWARD MAINFRAME SOFTWARE DEVELOPER Ot 054.9 HERPES SIMPLEX NOS 05/11/2017 ANA LAURA EDWARD MAINFRAME SOFTWARE DEVELOPER Ot 529.6 GLOSSODYNIA 05/11/2017 ANA LAURA EDWARD MAINFRAME SOFTWARE DEVELOPER Ot 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 NEURITIS NOS 05/11/2017 ANA LAURA EDWARD MAINFRAME SOFTWARE DEVELOPER Ot V10.82 HX-MALIG SKIN MELANOMA 05/11/2017 ANA LAURA EDWARD MAINFRAME SOFTWARE DEVELOPER Ot V58.69 OTH MED,LT,CURRENT USE 05/11/2017 ANA LAURA EDWARD MAINFRAME SOFTWARE DEVELOPER Ot V67.1 RADIOTHERAPY FOLLOW-UP 05/11/2017 EDWARDANA LAURA Rucker Chaim MAINFRAME SOFTWARE DEVELOPER Ot 172.9 MALIG MELANOMA SKIN NOS 05/11/2017 [...] MD Ot V58.69 OTH MED,LT,CURRENT USE 05/11/2017 YMOAIRA MCKENZIE DO Ot V72.84 EXAM PRE-OPERATIVE NOS [...] 05/11/2017 ARLENE LAM, SADAF Mcdaniel Ot V72.81 [id number]-[id number] CARDIOVASCULAR 05/11/2017 ARLENE LAM, SADAF P Ot [...] FO 05/16/2017 MARYSE VIVAS Ot 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 HALF-WAY (CURRENT) DRUG THERAPY 05/16/2017 MARYSE VIVAS Ot [...] V67.1 RADIOTHERAPY FOLLOW-UP 05/31/2017 ANA LAURA EDWARD MAINFRAME SOFTWARE DEVELOPER Ot 054.9 HERPES SIMPLEX NOS 05/31/2017 ANA LAURA EDWARD MAINFRAME SOFTWARE DEVELOPER Ot 529.6 GLOSSODYNIA 05/31/2017 ANA LAURA EDWARD MAINFRAME SOFTWARE DEVELOPER Ot 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 NEURITIS NOS 05/31/2017 ANA LAURA EDWARD MAINFRAME SOFTWARE DEVELOPER Ot V10.82 HX-MALIG SKIN MELANOMA 05/31/2017 ANA LAURA EDWARD MAINFRAME SOFTWARE DEVELOPER Ot V58.69 OTH MED,LT,CURRENT USE 05/31/2017 ANA LAURA EDWARD MAINFRAME SOFTWARE DEVELOPER Ot V67.1 RADIOTHERAPY FOLLOW-UP 05/31/2017 ANA LAURA EDWARD MAINFRAME SOFTWARE DEVELOPER Ot 172.9 MALIG MELANOMA SKIN NOS 05/31/2017 [...] Ot 172.9 MALIG MELANOMA SKIN NOS 05/31/2017 KLELY LAM, TYLOR Melgar Ot 722.4 CERVICAL DISC [...] 478.0 HYPERTRPH NASAL TURBINAT 05/31/2017 ARLENE LAM, SDAAF Mcdaniel Ot V72.81 [id number] CARDIOVASCULAR 05/31/2017 ARLENE LAM, SADAF Mcdaniel Ot [...] FO 05/31/2017 MARYSE VIVAS Ot 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 HALF-WAY (CURRENT) DRUG THERAPY 05/31/2017 MARYSE VIVAS Ot [...] FO 05/31/2017 MARYSE VIVAS Ot 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 HALF-WAY (CURRENT) DRUG THERAPY 05/31/2017 MARYSE VIVAS Ot Z85.820 PERSONAL HISTORY OF MALIGNANT MELANOMA O 05/31/2017 ARLENE LAM, SADAF Mcdaniel Ot E04.2 NONTOXIC MULTINODULAR GOITER 07/03/2017 ALYSIA ARIAS APRN Ot 729.2 NEURALGIA/NEURITIS NOS 07/03/2017 Ot 723.1 CERVICALGIA 07/03/2017 Ot V10.82 HX-MALIG SKIN MELANOMA 07/03/2017 Ot V58.69 OTH MED,LT, CURRENT USE 07/03/2017 Ot V67.1 RADIOTHERAPY FOLLOW-UP 07/03/2017 ANA LAURA EDWARD MAINFRAME SOFTWARE DEVELOPER Ot 054.9 HERPES SIMPLEX NOS 07/03/2017 ANA LAURA EDWARD MAINFRAME SOFTWARE DEVELOPER Ot 529.6 GLOSSODYNIA 07/03/2017 ANA LAURA EDWARD MAINFRAME SOFTWARE DEVELOPER Ot 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 NEURITIS NOS 07/03/2017 ANA LAURA EDWARD MAINFRAME SOFTWARE DEVELOPER Ot V10.82 HX-MALIG SKIN MELANOMA 07/03/2017 ANA LAURA EDWARD MAINFRAME SOFTWARE DEVELOPER Ot V58.69 OTH MED,LT,CURRENT USE 07/03/2017 ANA LAURA EDWARD MAINFRAME SOFTWARE DEVELOPER Ot V67.1 RADIOTHERAPY FOLLOW-UP 07/03/2017 EDWARD, HILAH S MAINFRAME SOFTWARE DEVELOPER Ot 172.9 MALIG MELANOMA SKIN NOS 07/03/2017 [...] TURBINAT 07/03/2017 SADAF JACOBS MD Ot V72.81 [id number] CARDIOVASCULAR 07/03/2017 SADAF JACOBS MD Ot V72.83 [...] 07/03/2017 Ot 793.11 SOLITARY PULMONARY NODULE 07/03/2017 MRAYSE VIVAS N Ot V10.82 HX-MALIG SKIN MELANOMA [...] FO 07/03/2017 MARYSE VIVAS Ot 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 HALF-WAY (CURRENT) DRUG THERAPY 07/03/2017 MARYSE VIVAS Ot [...] Ot Z92.3 PERSONAL HISTORY OF IRRADIATION 07/05/2017 [facility] ROS[facility] S Ot B02.22 POSTHERPETIC TRIGEMINAL [...] Ot K44.9 DIAPHRAGMATIC HERNIA WITHOUT OBSTRUCTION 07/05/2017 [facility] ROSALINE S Ot K58.9 IRRITABLE BOWEL SYNDROME [...] LEACH Ot F41.9 ANXIETY DISORDER, UNSPECIFIED 07/05/[facility] Rucker Ot G43.909 MIGRAINE, UNSP, NOT INTRACTABLE, WITHOUT 07/05/2017 [facility] LEACH Chaim Ot I10 ESSENTIAL (PRIMARY) HYPERTENSION 07/05/2017 [facility] ROSALINE LEACH Chaim Ot K21.9 GASTRO-ESOPHAGEAL REFLUX DISEASE WITHOUT 07/05/2017 [facility] Chaim Ot K44.9 DIAPHRAGMATIC HERNIA WITHOUT OBSTRUCTION 07/05/2017 [facility] DO ROSALINE S Ot K58.9 IRRITABLE BOWEL SYNDROME WITHOUT DIARRHE 07/05/2017 [facility] ALBERROSALINE Chaim Ot M54.10 RADICULOPATHY, SITE UNSPECIFIED 07/05/2017 [facility] ROSALINE LEACH Ot M79.7 FIBROMYALGIA 07/05/2017 [facility] ROSALINE LEACH Chaim Ot R13.10 DYSPHAGIA, UNSPECIFIED 07/05/2017 [facility] ROSALINE LEACH Chaim Ot Z85.820 PERSONAL HISTORY OF MALIGNANT MELANOMA O 07/05/2017 [facility] ROSALINE Rucker Ot Z92.21 PERSONAL HISTORY OF ANTINEOPLASTIC CHEMO 07/05/2017 [facility] ROSALINE Rucker Ot Z92.3 PERSONAL HISTORY OF IRRADIATION 07/10/2017 [facility] ROSALINE LEACH Chaim Ot 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 07/10/2017 [facility] ROSALINE LEACH Chaim Ot B02.9 ZOSTER WITHOUT COMPLICATIONS 07/10/2017 [facility] ROSALINE LEACH Chaim Ot F32.9 MAJOR DEPRESSIVE DISORDER, SINGLE EPISOD 07/10/2017 [facility] ALBER LEACHROSALINE Chaim Ot F41.9 ANXIETY DISORDER, UNSPECIFIED 07/10/2017 [facility] ALBER LEACHROSALINE Chaim Ot G43.909 MIGRAINE, UNSP, NOT INTRACTABLE, WITHOUT 07/10/2017 [facility] ROSALINE LEACH Chaim Ot I10 ESSENTIAL (PRIMARY) HYPERTENSION 07/10/2017 [facility] ROSALINE LEACH Chaim Ot K21.9 GASTRO-ESOPHAGEAL REFLUX DISEASE WITHOUT 07/10/2017 [facility] LE[facility] Chaim Ot K44.9 DIAPHRAGMATIC HERNIA WITHOUT OBSTRUCTION 07/10/2017 [facility] ROSALINE LEACH Chaim Ot K58.9 IRRITABLE BOWEL SYNDROME WITHOUT DIARRHE 07/10/2017 ROSALINE FLOR DO Ot M54.10 RADICULOPATHY, SITE UNSPECIFIED 07/10/2017 ROSALINE FLOR DO Ot M79.7 FIBROMYALGIA 07/10/2017 ROSALINE FLOR DO Ot R13.10 DYSPHAGIA, UNSPECIFIED 07/10/2017 ROSALINE FLOR DO Ot Z85.820 PERSONAL HISTORY OF MALIGNANT MELANOMA O 07/10/2017 ROASLINE FLOR DO Ot Z92.21 PERSONAL HISTORY OF [...] 08/30/2017 MARYSE VIVAS N Ot 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 HALF-WAY (CURRENT) DRUG THERAPY 08/30/2017 SANGEETHA, MARYSE N [...] 10/31/2017 MARYSE VIVAS N Ot 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 TOOTH CUTTER SPUR (CURRENT) DRUG THERAPY 10/31/2017 SANGEETHA BOBJE N [...] FO 11/06/2017 MARYSE VIVAS Ot 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 HALF-WAY (CURRENT) DRUG THERAPY 11/06/2017 MARYSE VIVAS Ot Z85.820 PERSONAL HISTORY OF MALIGNANT MELANOMA O 01/22/2018 ARLENE LAM, SADAF Mcdaniel Ot E04.1 NONTOXIC SINGLE THYROID NODULE 01/22/2018 ARLENE LAM, SADAF Mcdaniel Ot N83.202 UNSPECIFIED OVARIAN CYST, LEFT SIDE 01/22/2018 ARLENE LAM, SADAF Mcdaniel Ot Z90.710 ACQUIRED ABSENCE OF BOTH CERVIX AND UTER 02/07/2018 ANA LAURA EDWARD MAINFRAME SOFTWARE DEVELOPER Ot C43.4 MALIGNANT MELANOMA OF SCALP AND NECK 02/07/2018 ANA LAURA EDWARD MAINFRAME SOFTWARE DEVELOPER Ot R10.2 PELVIC AND PERINEAL PAIN 02/07/2018 ANA LAURA EDWARD MAINFRAME SOFTWARE DEVELOPER Ot R91.1 SOLITARY PULMONARY NODULE 02/07/2018 ANA LAURA EDWARDP Ot Z90.49 ACQUIRED ABSENCE OF OTHER SPECIFIED PART Procedures Code Description Performed By Performed On 57.32 CYSTOSCOPY NEC 02/23/2014 70.21 VAGINOSCOPY 02/23/2014 [id number] INSERTION OF INFUSION DEV INTO SUP VENA 04/17/2016 [id number] INSERTION OF INFUSION DEV INTO SUP VENA 09/18/2016 [id number] INSERTION OF INFUSION DEVICE INTO R [facility] 07/06/2017 [id number] INSERT OF TUNNEL VAD INTO CHEST SUBCU/FA [...] 5-8.5 Urine-Protein 2+ Negative Urine-RBC 20-40/HPF Urine-Specific [place] >=1.030 1.000-1.030 Urine-WBC TNTC Urobilinogen 1.0 E.U./dL [...] (T4) free measurement (mass/volume) 0.95 ng/dL 0.70-1.48 [id number] - 03/29/17 08:02 Serum or plasma urea [...] Status Pt. Type Provider Facility Loc./Unit Complaint [id number] 02/06/2018 12:48:00 02/06/2018 23:59:59 CLS Outpatient ANA LAURA EDWARDP [facility] RAD MALIGNANT MELANOMA [id number] 01/31/2018 12:36:00 01/31/2018 23:59:59 CLS Outpatient MARYSE VIVAS [facility] ONC [id number] 01/21/2018 14:21:00 01/21/2018 23:59:59 CLS Outpatient SADAF JACOBS MD [facility] RAD LT THYROID NODULE [id number] 01/18/2018 11:53:00 01/18/2018 23:59:59 CLS Preadmit BEN CAMARGO APRN [facility] RAD LLQ PAIN/PELVIS [id number] 08/02/2017 12:55:00 10/31/2017 00:01:00 DIS Outpatient MARYSE VIVAS [facility] ONC [id number] 07/03/2017 19:24:00 07/13/2017 09:00:00 DIS Inpatient ROSALINE FLOR DO [facility] 4TH RECURRENT HERPES ZOSTER INFECTION R FACE [id number] 04/23/2017 11:35:00 04/23/2017 23:59:59 CLS Outpatient SADAF JACOBS MD [facility] RAD THYROID NODULES [id number] 04/04/2017 10:59:00 04/04/2017 23:59:59 CLS Outpatient ROSALINE FLOR DO S [facility] RAD RIGHT SUBCLAVIAN/ VERTEBRAL ARTERY STENOSIS [id number] 01/04/2017 10:53:00 04/04/2017 00:01:00 DIS Outpatient MARYSE VIVAS [facility] ONC [id number] 03/29/2017 07:47:00 03/29/2017 23:59:59 CLS Outpatient ROSALINE FLOR DO [facility] RAD H93.11 [id number] 01/30/2017 11:35:00 01/30/2017 23:59:59 CLS Outpatient SADAF JACOBS MD [facility] RAD LT THYROID NODULE [id number] 01/22/2017 14:12:00 01/22/2017 23:59:59 CLS Outpatient SADAF JACOBS MD [facility] RAD THYROID NODULE [id number] 12/04/2016 08:40:00 12/04/2016 23:59:59 CLS Outpatient ROSALINE FLOR DO [facility] RAD CEPHALGIA,HX OF MALIGNANT MELANOMA [id number] 09/13/2016 14:54:00 10/06/2016 13:04:00 DIS Inpatient MARYSE VIVAS [facility] 4TH HERPES ZOSTER OUTBREAK TO FACE [id number] 04/12/2016 10:00:00 07/11/2016 00:01:00 DIS Outpatient MARYSE VIVAS [facility] ONC [id number] 04/20/2016 16:15:00 04/25/2016 17:30:00 DIS Inpatient MARYSE VIVAS [facility] 4TH SWB HERPES ZOSTER [id number] 04/14/2016 01:15:00 04/20/2016 16:15:00 DIS Inpatient MARYSE VIVAS [facility] 4TH FACIAL SHINGLES W INTRACTABLE PAIN [id number] 10/11/2015 09:53:00 01/09/2016 00:01:00 DIS Outpatient MARYSE VIVAS [facility] ONC [id number] 02/23/2015 11:41:00 05/24/2015 00:01:00 DIS Outpatient MARYSE VIVAS [facility] ONC [id number] 03/09/2015 12:54:00 03/09/2015 23:59:59 CLS Outpatient MARYSE VIVAS [facility] FS [id number] 10/15/2014 14:17:00 11/18/2014 00:01:00 DIS Outpatient MARYSE VIVAS [facility] ONC [id number] 10/27/2014 11:02:00 10/27/2014 23:59:59 CLS Outpatient MARYSE VIVAS [facility] FS [id number] 08/31/2014 11:13:00 08/31/2014 23:59:59 CLS Outpatient MARYSE VIVAS [facility] RAD HX OF PUL NODULE [id number] 07/21/2014 14:03:00 07/21/2014 23:59:59 CLS Outpatient MARYSE VIVAS [facility] FS [id number] 05/19/2014 10:40:00 05/19/2014 23:59:59 CLS Outpatient MARYSE VIVAS [facility] RAD HX OF MALIGNANT MELANOMA [id number] 04/07/2014 10:42:00 04/07/2014 23:59:59 CLS Outpatient MARYSE VIVAS [facility] RAD ABD PAIN, CRAMPING [id number] 03/10/2014 15:08:00 03/10/2014 23:59:59 CLS Outpatient MARYSE VIVAS [facility] FS [id number] 02/14/2014 13:58:00 02/27/2014 16:35:00 DIS Inpatient MARYSE VIVAS [facility] 4TH TIDWELL,SWELLING OF FACE [id number] 02/06/2014 08:52:00 02/07/2014 08:00:00 DIS Outpatient SDAAF JACOBS MD [facility] SDC CHRONIC SINUSITIS; HYPERTHROPY TURBINATES [id number] 02/03/2014 20:30:00 02/05/2014 19:00:00 DIS Inpatient MARYSE VIVAS [facility] 4TH R FACIAL LYMPHEDEMA, INTRACTABLE PAIN [id number] 02/04/2014 08:45:00 02/04/2014 23:59:59 CLS Preadmit LAURO HUYNH MD [facility] RAD REOCCURING UTI [id number] 02/02/2014 08:20:00 02/02/2014 23:59:59 CLS Outpatient SADAF JACOBS MD [facility] PREOP CHRONIC SINUSITIS; HYPERTROPHY TURBINATES [id number] 02/02/2014 20:28:00 02/02/2014 22:18:00 DIS Emergency HIRAL PRESTON [facility] ER ALLERGIC REACTION [id number] 12/30/2013 08:22:00 12/30/2013 23:59:59 CLS Outpatient MAISHA PIZANO MD [facility] RAD CHRONIC SINUSITIS [id number] 07/02/2013 03:45:00 09/29/2013 00:01:00 DIS Outpatient MARYSE VIVAS [facility] ONC [id number] 09/03/2013 09:06:00 09/03/2013 23:59:59 CLS Outpatient TYLOR MENDOZA MD [facility] RAD NECK PAIN [id number] 07/08/2013 09:20:00 07/08/2013 23:59:59 CLS Outpatient MARYSE VIVAS [facility] RAD MELANOMA [id number] 07/01/2013 14:45:00 07/08/2013 14:07:00 DIS Outpatient TYLOR MENDOZA MD [facility] REHAB CERVICALGIA [id number] 06/02/2013 12:51:00 06/02/2013 23:59:59 CLS Outpatient MARYSE VIVAS [facility] ONC [id number] 04/29/2013 13:44:00 04/29/2013 17:00:00 DIS Outpatient JONAH LEACHYOMAIRA [facility] SDC DYSPHAGIA [id number] 04/23/2013 10:51:00 04/23/2013 23:59:59 CLS Outpatient JONAH LEACHYOMAIRA [facility] PREOP DYSPHAGIA [id number] 01/27/2013 12:19:00 01/27/2013 23:59:59 CLS Outpatient TYLOR MENDOZA MD [facility] CARD THORACALGIA [id number] 12/17/2012 07:49:00 12/17/2012 23:59:59 CLS Outpatient ANA LAURA EDWARDP [facility] RAD MALIGNANT MELANOMA [id number] 12/13/2012 08:01:00 12/13/2012 23:59:59 CLS Outpatient TYLOR MENDOZA MD [facility] CARD DDD LUMBAR [id number] 12/09/2012 13:58:00 12/09/2012 23:59:59 CLS Outpatient ANA LAURA EDWARDP [facility] ONC [id number] 10/02/2012 12:29:00 10/02/2012 23:59:59 CLS Outpatient ALYSIA ARIAS APRN [facility] RAD LUMBAR RADICULOPATHY [id number] 09/23/2017 10:26:00 Document Registration [id number] 05/08/2014 10:16:00 Document Registration [id number] 04/07/2014 10:42:00 Document Registration [id number] 04/07/2014 10:42:00 Document Registration [id number] 04/07/2014 10:42:00 Document Registration [id number] 04/07/2014 10:42:00 Document Registration [id number] 02/03/2014 14:04:00 Document Registration [id number] 01/21/2014 08:48:00 Document Registration [id number] 09/30/2013 00:00:00 Document Registration [id number] 05/23/2012 14:20:00 Document Registration [id number] 03/22/2012 15:21:00 Document Registration [id number] 01/22/2012 10:34:00 Document Registration [id number] 10/12/2011 10:22:00 Document Registration [id number] 07/11/2011 12:52:00 Document Registration [id number] 06/29/2011 13:51:00 Document Registration [id number] 03/02/2011 13:18:00 Document Registration [id number] 02/03/2011 10:49:00 Document Registration [id number] 02/02/2011 13:32:00 Document Registration [id number] 11/21/2010 09:32:00 Document Registration [id number] 11/09/2010 14:36:00 Document Registration [id number] 08/01/2010 12:59:00 Document Registration [id number] 05/02/2010 14:07:00 Document Registration [id number] 04/29/2010 14:06:00 Document Registration [id number] 04/02/2010 07:51:00 Document Registration [id number] 02/26/2010 19:10:00 Document Registration [id number] 02/25/2010 10:52:00 Document Registration [id number] 02/24/2010 07:20:00 Document Registration [id number] 02/21/2010 15:26:00 Document Registration [id number] 02/01/2010 19:54:00 Document Registration [id number] 01/21/2010 17:18:00 Document Registration [id number] 01/21/2010 14:45:00 Document Registration [id number] 12/13/2009 10:12:00 Document Registration [id number] 09/21/2009 13:30:00 Document Registration [id number] 09/15/2009 13:56:00 Document Registration [id number] 06/25/2009 09:44:00 Document Registration [id number] 03/11/2009 14:06:00 Document Registration [id number] 12/03/2008 10:30:00 Document Registration [id number] 06/04/2008 00:00:00 Document Registration 10/201602/04/2018 09:55:58 02/04/2018 23:59:59 Rosaline Paredes [id number] 11/19/2015 10:17:34 11/19/2015 23:59:59 [facility] Outpatient [id number] 03/02/2016 15:42:00 03/02/2016 23:59:00 DIS Outpatient Rosaline Flor
--- NOTE | 2018-02-12 01:46 | NUR ---
JAGDEEP BARRERA admitted to room 420-1, with an admitting diagnosis of RECURRENT H. ZOSTER; FAILURE OF OUTPAITENT TREATMENT, on 02/12/18 from ED via WHEELCHAIR, accompanied by STAFF.JAGDEEP BARRERA introduced to surroundings, call light, bed controls, phone, TV, temperature control, lights, meal times, smoking policy, visitor policy, side rail policy, bathrooms and showers. Patient Rights given to patient in the handbook.JAGDEEP BARRERA verbalizes understanding that [facility] is not responsible for the loss or damage to any personal effects or valuables that are kept in the patients posession during their hospitalization.
[2018-02-12 04:00] VITALS: BP 128/70
[2018-02-12 05:15] LABS: BASOPHILS % (AUTO) 0 % (0-10); EOSINOPHILS # (AUTO) 0.2 10^3/uL (0.0-0.3); EOSINOPHILS % (AUTO) 4 % (0-10); HEMATOCRIT 34 % (35-52); HEMOGLOBIN 11.9 G/DL (11.5-16.0); LYMPHOCYTES % (AUTO) 19 % (12-44); MEAN CORPUSCULAR HEMOGLOBIN 32 PG (25-34); MEAN CORPUSCULAR HGB CONC 35 G/DL (32-36); MEAN CORPUSCULAR VOLUME 91 FL (80-99); MEAN PLATELET VOLUME 8.2 FL (7.4-10.4); MONOCYTES # (AUTO) 0.4 X 10^3 (0.0-1.0); MONOCYTES % (AUTO) 6 % (0-12); NEUTROPHILS # (AUTO) 3.9 X 10^3 (1.8-7.8); NEUTROPHILS % (AUTO) 71 % (42-75); PLATELET COUNT 275 10^3/uL (130-400); RED BLOOD COUNT 3.75 10^6/uL (4.35-5.85); RED CELL DISTRIBUTION WIDTH 12.5 % (10.0-14.5); WHITE BLOOD COUNT 5.5 10^3/uL (4.3-11.0)
[2018-02-12] MEDS ORDERED: ACYCLOVIR 800 MG/NS 250 ML IVPB IV SCH ×2 (05:30)
[2018-02-12 06:31] LABS: ALANINE AMINOTRANSFERASE 14 U/L (0-55); ALBUMIN 3.8 GM/DL (3.2-4.5); ALKALINE PHOSPHATASE 75 U/L (40-136); BILIRUBIN,TOTAL 0.3 MG/DL (0.1-1.0); BUN/CREATININE RATIO 18; CARBON DIOXIDE 20 MMOL/L (21-32); CHLORIDE 106 MMOL/L (98-107); CREATININE SERUM 0.79 MG/DL (0.60-1.30); GFR ESTIMATED > 60; GLUCOSE 96 MG/DL (70-105); POTASSIUM 3.6 MMOL/L (3.6-5.0); SODIUM 138 MMOL/L (135-145)
--- NOTE | 2018-02-12 06:43 | ED General ---
General Chief Complaint: Facial Problems Stated Complaint: RECURRENT H ZOSTER R FACE;FAILURE OF OUTPT THERAPY Nursing Triage Note: facial swelling Nursing Sepsis Screen: No Definite Risk Source of Information: Patient, Old Records History of Present Illness Date Seen by Provider: Feb 12, 2018 Time Seen by Provider: 00:05 Initial Comments PT ARRIVES VIA POV FROM HOME C/O FLARE UP OF HERPES ZOSTER TO RIGHT SIDE OF FACE STATES THIS IS THE 20TH TIME THIS HAS OCCURRED SINCE 2010--STATES SHE ALWAYS HAS TO BE ADMITTED FOR IV ACYCLOVIR STATES SHE HAS HAD A RIGHT RADICAL NECK SURGERY IN 2001 FOR STAGE 4 MELANOMA, WITH REMOVAL OF LYMPH NODES. HAD INTERFERON X 1 YEAR PLUS RADIATION. HAD RECURRENCE IN 2003 TO ABDOMEN AND HAD SURGICAL REMOVAL AT THAT TIME. NO FURTHER TREATMENTS HAVE BEEN NEEDED AND NO RECURRENCE NOTED SINCE THEN. STATES IS BELIEVED THAT SHE HAS THIS PROBLEM DUE TO NO LYMPH NODES ON RIGHT SIDE OF HEAD/NECK IS FOLLOWED BY DR VIVAS PT IS ON MAINTENANCE ACYCLOVIR AT 400 MG BID, AND INCREASES TO 800 MG 5 TIMES A DAY WITH FLARE UP'S . STATES SHE NOTICED THAT SHE HAS HAD SOME SYMPTOMS OF A FLARE UP FOR THE LAST MONTH, BUT HAS BEEN WORSE THE LAST SEVERAL DAYS--INCREASED PAIN, BURNING AND TINGLING AND SWELLING TO RIGHT SIDE OF FACE TO TIP AND RIGHT SIDE OF NOSE NO VISION CHANGES NO FEVER PT STATES SHE HAS BEEN RECENTLY TREATED FOR SINUSITIS--SEEN BY CLAY PROCESSING LABOURER AT DR. CASE 'S OFFICE 8 DAYS AGO AND STARTED ON CEFDINIR, AND SUDAGEST FOR CONGESTION. SHE STATES THOSE SYMPTOMS ARE MUCH BETTER STATES LAST FLARE UP WAS IN SEPTEMBER AND THIS IS MUCH WORSE THAN SEPTEMBER. DENIES VISION CHANGES DENIES DIFFICULTY SWALLOWING DENIES MOTOR/SENSORY DEFICITS HAS NOT TAKEN ANYTHING FOR PAIN PCP: DR. CASE ONCOLOGY: DR. VIVAS Allergies and Home Medications Allergies Coded Allergies: promethazine (Verified Allergy, Unknown, 04/13/16) vancomycin (Verified Allergy, Unknown, RASH, 09/13/16) reacted to iv vancomycin in cancer center on 01/21 Home Medications Acyclovir 800 Mg Tablet, 800 MG PO 5XD Prescribed by: ABELARDO CASE on 09/28/17 1318 Carbamazepine 200 Mg Tab.er.12h, 200 MG PO HS, (Reported) Eszopiclone 2 Mg Tablet, 2 MG PO HS, (Reported) Meclizine HCl 25 Mg Tablet, 25 MG PO PRN, (Reported) Patient Home Medication List Home Medication List Reviewed: Yes Review of Systems Review of Systems Constitutional: no symptoms reported; No chills, No diaphoresis, No fever EENTM: see HPI Respiratory: no symptoms reported Cardiovascular: no symptoms reported Gastrointestinal: no symptoms reported Genitourinary: no symptoms reported Musculoskeletal: no symptoms reported Skin: see HPI Psychiatric/Neurological: See HPI, Tingling Hematologic/Lymphatic: No Symptoms Reported Immunological/Allergic: no symptoms reported Past Gajkqeo-Njksfp-Rxjeet Hx Patient Social History Alcohol Use: Denies Use Recreational Drug Use: No Smoking Status: Never a Smoker 2nd Hand Smoke Exposure: No Recent Foreign Travel: No Contact w/Someone Who Travel: No Recent Infectious Disease Expo: No Recent Hopitalizations: No Immunizations Up To Date Tetanus Booster (TDap): Unknown PED Vaccines UTD: Yes Seasonal Allergies Seasonal Allergies: No Past Medical History Surgeries: Yes ( X 2; HYST/OVARIES INTACT; RIGHT RADICAL NECK SURGERY FOR MELANOMA IN 2001; ABDOMINAL SURGERY FOR MELANOMA 2003; EGD/ BLADDER SURGERY ; LAPAROSCOPY FOR ENDOMETRIOSIS; POWER PORT LEFT CHEST 06/2017) Abdominal, Bladder Surgery, Section, Gallbladder, Hysterectomy Respiratory: No Currently Using CPAP: No Currently Using BIPAP: No Cardiac: Yes High Cholesterol, Hypertension Neurological: Yes Headaches /Migraines : No Reproductive Disorders: Yes (Surgeries for Ovarian cysts) Female Reproductive Disorders: Endometriosis, 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 NO FURTHER TREATMENT) Melanoma Did You Recieve Any Treatments: Yes (HAD RIGHT RADICAL NECK SURGERY IN 2001; ABDOMINAL SURGERY FOR MELANOMA 2003) What Type of Treatment Did You: Chemotherapy, Radiation, Surgical Intervention Psychosocial: Yes Anxiety, Depression Integumentary: Yes (RECURRENT HZV TO RIGHT FACE) Recent Skin Changes, Herpes Blood Disorders: No Adverse Reaction/Blood Tranf: No Family Medical History Arthritis 19 MOTHER G8 SISTER Cataracts 19 MOTHER Congenital heart disease 19 FATHER (HEART DZ) Diabetes mellitus 19 FATHER Hypertension 19 FATHER Myocardial infarction 19 FATHER Respiratory disorder 19 FATHER (EMPHYSEMA) Seizure disorder G8 BROTHER (CEBERAL PALSY ALOS) No Pertinent Family Hx Physical Exam Vital Signs Vital Signs - First Documented 02/11/18 23:45 Temp 96.7 Pulse 80 Resp 16 B/P (MAP) 165/101 (122) Pulse Ox 99 O2 Delivery Room Air Capillary Refill : Less Than 3 Seconds Height, Weight, BMI Height: 5'4.00" Weight: 205lbs. 0.0oz. [id number]; 35.2 BMI Method:Actual General Appearance: No Apparent Distress, WD/WN HEENT: PERRL/EOMI, Other (SLIGHT SWELLING TO RIGHT SIDE OF FACE. VERY SLIGHT ERYTHEMATOUS PAPULES TO RIGHT SIDE OF FACE AND NOSE. NO VESICLES OR SCABBED WOUNDS. DISTRIBUTION OF RIGHT TRIGEMINAL NERVE) Neck: Non Tender, Other (POST OP CHANGES TO RIGHT NECK) Respiratory: Normal Breath Sounds Cardiovascular: Regular Rate, Rhythm Extremity: Normal Inspection Neurologic/Psychiatric: Alert, Oriented x3, No Motor/Sensory Deficits, Normal Mood/Affect, silk weaver II-XII Norm as Tested Skin: Normal Color, Warm/Dry, Rash ( ABOVE), Other Focused Exam Lactate Level 02/12/18 00:50: Lactic Acid Level 0.72 Progress/Results/Core Measures Suspected Sepsis Recent Fever Within 48 Hours: No Infection Criteria Present: None New/Unexplained Altered Menta: No Sepsis Screen: No Definite Risk SIRS Temperature:98.7 Pulse: 86 Respiratory Rate: 18 Laboratory Tests 02/12/18 00:50: White Blood Count 7.5 02/12/18 05:05: White Blood Count 5.5 Blood Pressure 128 /70 Mean: 89 02/12/18 00:50: Lactic Acid Level 0.72 Laboratory Tests 02/12/18 00:50: Creatinine 0.86, Platelet Count 319, Total Bilirubin 0.4 02/12/18 05:05: Creatinine 0.79, Platelet Count 275, Total Bilirubin 0.3 Results/Orders Lab Results Laboratory Tests Test 02/12/18 00:50 02/12/18 05:05 Range/Units White Blood Count 7.5 5.5 4.3-11.0 10^3/uL Red Blood Count 4.22 L 3.75 L 4.35-5.85 10^6/uL Hemoglobin 13.1 11.9 11.5-16.0 G/DL Hematocrit 38 34 L 35-52 % Mean Corpuscular Volume 90 91 80-99 FL Mean Corpuscular Hemoglobin 31 32 25-34 PG Mean Corpuscular Hemoglobin Concent 34 35 32-36 G/DL Red Cell Distribution Width 12.6 12.5 10.0-14.5 % Platelet Count 319 275 130-400 10^3/uL Mean Platelet Volume 8.3 8.2 7.4-10.4 FL Neutrophils (%) (Auto) 75 71 42-75 % Lymphocytes (%) (Auto) 16 19 12-44 % Monocytes (%) (Auto) 6 6 0-12 % Eosinophils (%) (Auto) 3 4 0-10 % Basophils (%) (Auto) 0 0 0-10 % Neutrophils # (Auto) 5.6 3.9 1.8-7.8 X 10^3 Lymphocytes # (Auto) 1.2 1.0 1.0-4.0 X 10^3 Monocytes # (Auto) 0.5 0.4 0.0-1.0 X 10^3 Eosinophils # (Auto) 0.2 0.2 0.0-0.3 10^3/uL Basophils # (Auto) 0.0 0.0 0.0-0.1 10^3/uL Sodium Level 137 138 135-145 MMOL/L Potassium Level 3.9 3.6 3.6-5.0 MMOL/L Chloride Level 104 106 98-107 MMOL/L Carbon Dioxide Level 20 L 20 L 21-32 MMOL/L Anion Gap 13 12 5-14 MMOL/L Blood Urea Nitrogen 15 14 7-18 MG/DL Creatinine 0.86 0.79 0.60-1.30 MG/DL Estimat Glomerular Filtration Rate > 60 > 60 BUN/Creatinine Ratio 17 18 Glucose Level 105 96 70-105 MG/DL Lactic Acid Level 0.72 0.50-2.00 MMOL/L Calcium Level 10.0 9.0 8.5-10.1 MG/DL Corrected Calcium 9.7 9.2 8.5-10.1 MG/DL Total Bilirubin 0.4 0.3 0.1-1.0 MG/DL Aspartate Amino Transf (AST/SGOT) 13 15 5-34 U/L Alanine Aminotransferase (ALT/SGPT) 17 14 0-55 U/L Alkaline Phosphatase 87 75 40-136 U/L Total Protein 7.3 6.0 L 6.4-8.2 GM/DL Albumin 4.4 3.8 3.2-4.5 GM/DL My Orders Orders - LOGAN AGUILAR DO Saline Lock/Iv-Start (02/12/18 00:16) Cbc With Automated Diff (02/12/18 00:16) Comprehensive Metabolic Panel (02/12/18 00:16) Lactic Acid Analyzer (02/12/18 00:16) Blood Culture (02/12/18 00:16) Ketorolac Injection (Toradol Injection) (02/12/18 00:16) Acyclovir Injection (Zovirax Injection) (02/12/18 00:30) Vital Signs/I&O 02/11/18 02/12/18 02/12/18 02/12/18 23:45 00:52 01:42 03:01 Temp 96.7 96.7 97.1 Pulse 80 76 Resp 16 16 B/P (MAP) 165/101 (122) 133/82 (99) Pulse Ox 99 99 99 O2 Delivery Room Air Room Air Room Air 02/12/18 04:00 Temp 98.7 Pulse 86 Resp 18 B/P (MAP) 128/70 (89) Pulse Ox 98 O2 Delivery Room Air Capillary Refill : Less Than 3 Seconds Blood Pressure Mean: 89 Progress Note : Progress Note UNEVENTFUL ER STAY Departure Communication (Admissions) 0126--SPOKE WITH DR. MELENDEZ, HOSPITALIST. ACCEPTS PT FOR ADMIT. 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 Referrals: ABELARDO CASE DO (PCP) Primary Care Physician LOGAN AGUILAR DO Feb 12, 2018 06:43
[2018-02-12 07:57] VITALS: BP 128/71
[2018-02-12] MEDS ORDERED: FLU QUADRIvalent (5+ YOA) 2018-2019 (AFLURIA) 0.5 ML IM ONE (08:00)
[2018-02-12] MEDS: KETOROLAC 30 MG/ML VIAL IV PRN ×2 (10:22→21:39)
--- NOTE | 2018-02-12 12:35 | History & Physical-Hospitalist ---
History of Present Illness HPI/Chief Complaint This is a 47-year-old white female who has remote history of malignant melanoma 2001. 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 This is been a recurrent problem for which she necessitates IV acyclovir to prevent progression to severe cellulitis and intractable pain. She noticed that she started to have some swelling and irritation of the right side of her nose and tingling and burning of the right side of her face and enlargement of the preauricular lymph node with a great deal of tenderness. This actually started about 4 days prior to presentation and she doubled up on her acyclovir to 800 mg for 5 times a day but it is not helped. She now presents with similar complaints and is requiring inpatient hospitalization for IV acyclovir. Source: patient, old records Exam Limitations: no limitations Date Seen 02/12/18 Time Seen by a Provider: 11:45 Attending Physician Rosaline Case DO PCP Rosaline Case DO Referring Physician Date of Admission Feb 12, 2018 at 01:32 Home Medications & Allergies Home Medications Reviewed patient Home Medication Reconciliation performed by pharmacy medication reconciliations ammonia technician and/or nursing. Patients Allergies have been reviewed. Allergies Allergies Coded Allergies promethazine (Verified Allergy, Unknown, 04/13/16) vancomycin (Verified Allergy, Unknown, RASH, 09/13/16) reacted to iv vancomycin in cancer center on 01/21 Past Prpzfzn-Ckvojk-Nlsutn Hx Past Med/Social Hx: Reviewed Nursing Past Med/Soc Hx Patient Social History Marrital Status: Employed/Student: employed Alcohol Use: Denies Use Recreational Drug Use: No Smoking Status: Never a Smoker 2nd Hand Smoke Exposure: No Physical Abuse Screen: No Sexual Abuse: No Recent Foreign Travel: No Contact w/other who traveled: No Recent Hopitalizations: No Recent Infectious Disease Expo: No Immunizations Up To Date Tetanus Booster (TDap): Unknown Pediatric: Yes Seasonal Allergies Seasonal Allergies: No Past Medical History Surgeries: Abdominal, Bladder Surgery, Section, Gallbladder, Hysterectomy Currently Using CPAP: No Currently Using BIPAP: No Cardiac: High Cholesterol, Hypertension Neurological: Headaches /Migraines : No Reproductive: Yes (Surgeries for Ovarian cysts) Sexually Transmitted Disease: No HIV/AIDS: No Female Reproductive Disorders: Endometriosis, Ovarian Cyst Hysterectomy Genitourinary: UTI-Chronic Gastrointestinal: Gastroesophageal Reflux, Esophagitis, Gall Bladder Disease, Irritable Bowel Musculoskeletal: Fibromyalgia HEENT: Dysphagia Loss of Vision: Denies Hearing Impairment: Denies Cancer: Melanoma Did You Recieve Any Treatments: Yes (HAD RIGHT RADICAL NECK SURGERY IN 2001; ABDOMINAL SURGERY FOR MELANOMA 2003) What Type of Treatment Did You: Chemotherapy, Radiation, Surgical Intervention Psychosocial: Anxiety, Depression Skin/Integumentary: Recent Skin Changes, Herpes History of Blood Disorders: No Adverse Reaction to Blood [place]: No Family History Arthritis 19 MOTHER G8 SISTER Cataracts 19 MOTHER Congenital heart disease 19 FATHER (HEART DZ) Diabetes mellitus 19 FATHER Hypertension 19 FATHER Myocardial infarction 19 FATHER Respiratory disorder 19 FATHER (EMPHYSEMA) Seizure disorder G8 BROTHER (CEBERAL PALSY ALOS) No Pertinent Family Hx Review of Systems Constitutional: see HPI EENTM: nose pain, other (Right facial pain) Respiratory: no symptoms reported Cardiovascular: no symptoms reported Gastrointestinal: no symptoms reported Musculoskeletal: no symptoms reported Skin: no symptoms reported Psychiatric/Neurological: No Symptoms Reported Physical Exam Physical Exam Vital Signs Vital Signs - First Documented 02/11/18 23:45 Temp 96.7 Pulse 80 Resp 16 B/P (MAP) 165/101 (122) Pulse Ox 99 O2 Delivery Room Air Capillary Refill : Less Than 3 Seconds Height, Weight, BMI Height: 5'4.00" Weight: 205lbs. 0.0oz. 92.607742lg; 35.2 BMI Method:Actual General Appearance: No Apparent Distress, WD/WN HEENT: Other Neck: Limited Range of Motion Respiratory: Chest Non Tender, Lungs Clear, Normal Breath Sounds, No Accessory Muscle Use, No Respiratory Distress Cardiovascular: Regular Rate, Rhythm, No Gallop, No Murmur Gastrointestinal: Normal Bowel Sounds, Non Tender, Soft Rectal: Deferred Back: Normal Inspection Extremity: Normal Capillary Refill, Non Tender, No Calf Tenderness Neurologic/Psychiatric: Alert, Oriented x3, Normal Mood/Affect Skin: Normal Color, Warm/Dry Results Results/Procedures Labs Laboratory Tests 02/12/18 00:50 02/12/18 05:05 Patient resulted labs reviewed. Assessment/Plan Admission Diagnosis 1. Recurrent herpes zoster with secondary cellulitis 2. History of recurrent malignant melanoma no evidence of disease history of radical neck dissection Plan to admit for IV acyclovir Admission Status: Inpatient Order (span 2 midnights) Reason for Inpatient Admission: The patient does have some acyclovir resistant zoster and this usually requires 5 days of IV acyclovir to treat. Clinical Quality Measures DVT/VTE Risk/Contraindication: Risk Factor Score Per Nursin RFS Level Per Nursing on Admit: 1=Low/No VTE PPX Copy Copies To 1: ROSALINE CASE KATHLEEN M MD Feb 12, 2018 12:35
[2018-02-12 12:52] VITALS: BP 128/68
[2018-02-12] MEDS: CATHETER FLUSH 10 ML SYR IV SCH ×2 (13:39→21:40)
[2018-02-12] MEDS: ACYCLOVIR INJECTION 500 MG in NS (IVPB) 250 ML IV SCH ×2 (13:40→21:40)
[2018-02-12] MEDS ORDERED: DULO60CA58 PO (15:48)
[2018-02-12] MEDS ORDERED: [UNRECOGNIZED DRUG - CODE] PO (15:55)
[2018-02-12] MEDS ORDERED: PSEU30TA35 PO (15:57)
[2018-02-12 16:00] VITALS: BP 117/64
[2018-02-12] MEDS ORDERED: PSEUDOEPHEDRINE HCL 30 MG PO SCH (16:45)
[2018-02-12] MEDS ORDERED: PATIENT MAY USE OWN MEDS, ALL MC SCH (16:45)
[2018-02-12] MEDS ORDERED: PATIENT MAY USE OWN MED,SINGLE MED PO SCH (16:45)
[2018-02-12] MEDS ORDERED: PSEUDOEPHEDRINE HCL 30 MG PO PRN (16:45)
[2018-02-12 20:00] VITALS: BP 121/69
[2018-02-12] MEDS ORDERED: ATORVASTATIN 10 MG (LIPITOR) TABLET PO SCH ×2 (21:00)
[2018-02-12] MEDS ORDERED: NON-FORMULARY MEDICATION 1 EA EA (Eszopiclone 2 MG) PO SCH (21:00)
[2018-02-12] MEDS ORDERED: ZOLPIDEM 5 MG (AMBIEN) TAB PO SCH (21:00)
[2018-02-12] MEDS: ESZOPICLONE 2 MG TAB PO SCH (21:40)
[2018-02-13] VITALS: BP 114/62
[2018-02-13 04:00] VITALS: BP 111/58
[2018-02-13] MEDS: ACYCLOVIR INJECTION 500 MG in NS (IVPB) 250 ML IV SCH ×3 (05:36→21:18)
[2018-02-13] MEDS: CATHETER FLUSH 10 ML SYR IV SCH ×3 (05:36→21:21)
[2018-02-13 08:00] VITALS: BP 122/72
[2018-02-13] MEDS ORDERED: NON-FORMULARY MEDICATION 1 EA EA (Cholecalciferol (Vitamin D3) (Vitamin D3) 5,000 UNIT) PO SCH (09:00)
[2018-02-13] MEDS ORDERED: NON-FORMULARY MEDICATION 1 EA EA (Duloxetine HCl 60 MG) PO SCH (09:00)
[2018-02-13] MEDS ORDERED: DULOXETINE 60 MG CAPSULE PO SCH (09:00)
[2018-02-13] MEDS: VITAMIN D3 5,000 UNITS (CHOLECALCIFEROL ) CAPSULE PO SCH (09:46)
[2018-02-13 12:00] VITALS: BP 115/77
[2018-02-13] MEDS ORDERED: CHOL5000 PO (13:46)
[2018-02-13] MEDS ORDERED: ACYC200C PO (13:46)
--- NOTE | 2018-02-13 13:48 | NUR ---
WENT OVER THE EXT MED HX WITH THE PATIENT AND SHE VERIFIED HOW SHE TAKES THEM. SHE STATES SHE ALSO TAKES VITAMIN D OTC DAILY AND SUDAFED PRN.
--- NOTE | 2018-02-13 13:52 | NUR ---
CONVERTED PATIENTS LIPITOR AND CYMBALTA TO BE SUPPLIED BY HOSPITAL PER PATIENT REQUEST.
[2018-02-13] MEDS: KETOROLAC 30 MG/ML VIAL IV PRN ×2 (15:04→21:00)
[2018-02-13 16:00] VITALS: BP 130/70
--- NOTE | 2018-02-13 18:01 | Progress Note (SOAP) ---
Subjective Date Seen by a Provider: Feb 13, 2018 Time Seen by a Provider: 08:25 Subjective/Events-last exam Fwup recurrent herpes zoster of face. Patient states pain not quite as bad and rash to nose has improved some. Focused Exam Lactate Level 02/12/18 00:50: Lactic Acid Level 0.72 Objective Exam Vital Signs Date Time Temp Pulse Resp B/P (MAP) Pulse Ox O2 Delivery O2 Flow Rate FiO2 02/13/18 16:00 97.1 81 16 130/70 (90) 98 Room Air 02/13/18 15:37 97.5 02/13/18 12:00 97.5 78 18 115/77 (90) 94 Room Air 02/13/18 08:00 Room Air 02/13/18 08:00 97.3 86 20 122/72 (89) 91 Room Air 02/13/18 04:00 98.7 70 20 111/58 (75) 95 Room Air 02/13/18 00:00 97.4 77 20 114/62 (79) 98 Room Air 02/12/18 20:00 Room Air 02/12/18 20:00 97.9 78 18 121/69 (86) 98 Room Air I & O 02/13/18 07:00 Intake Total 3490 ml Output Total 2300 ml Balance 1190 ml Capillary Refill : Less Than 3 Seconds General Appearance: No Apparent Distress Neck: Supple Respiratory: Lungs Clear Cardiovascular: Regular Rate, Rhythm Neurologic/Psychiatric: Alert, Oriented x3 Skin: Other (tiny scabbed sore to top of left nares) Results Lab Microbiology 02/12/18 Blood Culture - Preliminary, Resulted No growth Assessment/Plan Assessment/Plan Assess & Plan/Chief Complaint 1. Recurrent Herpes Zoster of face--continue IV zovirax and monitor Clinical Quality Measures DVT/VTE Risk/Contraindication: Risk Factor Score Per Nursin RFS Level Per Nursing on Admit: 1=Low/No VTE PPX ABELARDO CASE DO Feb 13, 2018 18:01
[2018-02-13] MEDS: fentaNYL INJECTION 100 MCG/2 ML AMP IV PRN ×2 (18:52→23:50)
[2018-02-13] MEDS: ESZOPICLONE 2 MG TAB PO SCH (21:00)
[2018-02-13] MEDS: ATORVASTATIN 10 MG (LIPITOR) TABLET PO SCH (21:01)
[2018-02-14 00:03] VITALS: BP 128/85
[2018-02-14] MEDS: ACYCLOVIR INJECTION 500 MG in NS (IVPB) 250 ML IV SCH ×3 (05:43→21:25)
[2018-02-14] MEDS: CATHETER FLUSH 10 ML SYR IV SCH ×3 (05:43→20:39)
[2018-02-14 08:00] VITALS: BP 124/79
[2018-02-14] MEDS: VITAMIN D3 5,000 UNITS (CHOLECALCIFEROL ) CAPSULE PO SCH (08:54)
[2018-02-14] MEDS: DULoxetine 30 MG (CYMBALTA) CAP PO SCH (08:54)
[2018-02-14] MEDS: KETOROLAC 30 MG/ML VIAL IV PRN ×2 (08:54→20:38)
[2018-02-14] MEDS ORDERED: CAL. POLYCARBOPHIL 625 MG (FIBERCON) TAB PO NR (13:24)
[2018-02-14] MEDS: fentaNYL INJECTION 100 MCG/2 ML AMP IV PRN ×2 (14:04→23:27)
[2018-02-14 15:50] VITALS: BP 124/82
--- NOTE | 2018-02-14 17:42 | Progress Note (SOAP) ---
Subjective Date Seen by a Provider: Feb 14, 2018 Time Seen by a Provider: 12:50 Subjective/Events-last exam Fwup recurrent herpes zoster of face. Burning facial pain off and on but much better than when was admitted. Focused Exam Lactate Level 02/12/18 00:50: Lactic Acid Level 0.72 Objective Exam Vital Signs Date Time Temp Pulse Resp B/P (MAP) Pulse Ox O2 Delivery O2 Flow Rate FiO2 02/14/18 15:50 96.9 92 18 124/82 (96) 97 Room Air 02/14/18 08:00 99.2 74 18 124/79 (94) 95 Room Air 02/14/18 08:00 Room Air 02/14/18 00:03 98.0 78 18 128/85 (99) 95 Room Air 02/13/18 18:52 97.1 I & O 02/14/18 07:00 Intake Total 2920 ml Output Total 3800 ml Balance -880 ml Capillary Refill : Less Than 3 Seconds General Appearance: No Apparent Distress Neurologic/Psychiatric: Alert, Oriented x3 Skin: Normal Color, Other (left tiny nares lesion scabbing over) Results Lab Microbiology 02/12/18 Blood Culture - Preliminary, Resulted No growth Assessment/Plan Assessment/Plan Assess & Plan/Chief Complaint 1. Recurrent Herpes Zoster of face--continue IV zovirax and monitor Clinical Quality Measures DVT/VTE Risk/Contraindication: Risk Factor Score Per Nursin RFS Level Per Nursing on Admit: 1=Low/No VTE PPX ABELARDO CASE DO Feb 14, 2018 17:42
[2018-02-14] MEDS: ATORVASTATIN 10 MG (LIPITOR) TABLET PO SCH (20:37)
[2018-02-14] MEDS: ESZOPICLONE 2 MG TAB PO SCH (20:37)
[2018-02-15 00:11] VITALS: BP 128/62
[2018-02-15] MEDS: KETOROLAC 30 MG/ML VIAL IV PRN ×3 (05:45→21:23)
[2018-02-15] MEDS: ACYCLOVIR INJECTION 500 MG in NS (IVPB) 250 ML IV SCH ×3 (05:45→21:23)
[2018-02-15] MEDS: CATHETER FLUSH 10 ML SYR IV SCH ×3 (05:45→21:24)
[2018-02-15 08:00] VITALS: BP 123/56
[2018-02-15] MEDS: CAL. POLYCARBOPHIL 625 MG (FIBERCON) TAB PO SCH (08:27)
[2018-02-15] MEDS: VITAMIN D3 5,000 UNITS (CHOLECALCIFEROL ) CAPSULE PO SCH (08:27)
[2018-02-15] MEDS: DULoxetine 30 MG (CYMBALTA) CAP PO SCH (08:28)
--- NOTE | 2018-02-15 13:01 | Progress Note (SOAP) ---
Subjective Date Seen by a Provider: Feb 15, 2018 Time Seen by a Provider: 12:59 Subjective/Events-last exam Fwup recurrent herpes zoster of face. Still feels firing in right side of face. Objective Exam Vital Signs Date Time Temp Pulse Resp B/P (MAP) Pulse Ox O2 Delivery O2 Flow Rate FiO2 02/15/18 08:00 Room Air 02/15/18 08:00 98.4 74 18 123/56 (78) 100 Room Air 02/15/18 00:11 97.2 90 18 128/62 (84) 94 Room Air 02/14/18 15:50 96.9 92 18 124/82 (96) 97 Room Air I & O 02/15/18 07:00 Intake Total 2110 ml Output Total 4200 ml Balance -2090 ml Capillary Refill : Less Than 3 Seconds General Appearance: No Apparent Distress Neurologic/Psychiatric: Alert, Oriented x3 Skin: Other (left nares with small crusted papule) Results Lab Microbiology 02/12/18 Blood Culture - Preliminary, Resulted No growth Assessment/Plan Assessment/Plan Assess & Plan/Chief Complaint 1. Recurrent Herpes Zoster of face--continue IV zovirax and add tegretol Clinical Quality Measures DVT/VTE Risk/Contraindication: Risk Factor Score Per Nursin RFS Level Per Nursing on Admit: 1=Low/No VTE PPX ABELARDO CASE DO Feb 15, 2018 13:01
[2018-02-15] MEDS: fentaNYL INJECTION 100 MCG/2 ML AMP IV PRN ×2 (16:14→22:42)
[2018-02-15] MEDS: CATHETER FLUSH 10 ML SYR IV PRN (16:14)
[2018-02-15 16:56] VITALS: BP 127/78
[2018-02-15] MEDS: ATORVASTATIN 10 MG (LIPITOR) TABLET PO SCH (21:23)
[2018-02-15] MEDS: carBAMazepine 200 MG (TEGretol) TAB PO SCH (21:23)
[2018-02-15] MEDS: ESZOPICLONE 2 MG TAB PO SCH (21:32)
[2018-02-16] VITALS: BP 131/85
[2018-02-16] MEDS: ACYCLOVIR INJECTION 500 MG in NS (IVPB) 250 ML IV SCH ×3 (06:46→21:01)
[2018-02-16] MEDS: CATHETER FLUSH 10 ML SYR IV SCH ×3 (06:46→21:00)
[2018-02-16 08:00] VITALS: BP 116/77
[2018-02-16] MEDS: DULoxetine 30 MG (CYMBALTA) CAP PO SCH (09:46)
[2018-02-16] MEDS: VITAMIN D3 5,000 UNITS (CHOLECALCIFEROL ) CAPSULE PO SCH (09:47)
[2018-02-16] MEDS: KETOROLAC 30 MG/ML VIAL IV PRN ×3 (09:50→21:08)
[2018-02-16] MEDS: carBAMazepine 200 MG (TEGretol) TAB PO SCH ×3 (09:50→20:59)
[2018-02-16] MEDS: CAL. POLYCARBOPHIL 625 MG (FIBERCON) TAB PO SCH ×2 (09:50→20:59)
--- NOTE | 2018-02-16 12:06 | Progress Note-Hospitalist ---
Subjective HPI/CC On Admission Date Seen by Provider: Feb 16, 2018 Time Seen by Provider: 11:00 This is a 47-year-old white female who has remote history of malignant melanoma 2001. 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 This is been a recurrent problem for which she necessitates IV acyclovir to prevent progression to severe cellulitis and intractable pain. She noticed that she started to have some swelling and irritation of the right side of her nose and tingling and burning of the right side of her face and enlargement of the preauricular lymph node with a great deal of tenderness. This actually started about 4 days prior to presentation and she doubled up on her acyclovir to 800 mg for 5 times a day but it is not helped. She now presents with similar complaints and is requiring inpatient hospitalization for IV acyclovir. Subjective/Events-last exam Patient feels like she is better Wants Tegretol 3 times daily instead of twice daily to prevent narcotic use Wants fiber tablet twice daily instead of once daily Overall improved Vesical inside her left nose is much improved Review of Systems General: Fatigue HEENT: Ear Pain Objective Exam Vital Signs Vital Signs Date Time Temp Pulse Resp B/P (MAP) Pulse Ox O2 Delivery O2 Flow Rate FiO2 02/16/18 08:00 97.7 90 18 116/77 (90) 100 Room Air Capillary Refill : Less Than 3 Seconds General Appearance: No Apparent Distress, WD/WN, Chronically ill Respiratory: Chest Non Tender, Lungs Clear, Normal Breath Sounds, No Accessory Muscle Use, No Respiratory Distress Cardiovascular: Regular Rate, Rhythm, No Edema, No Gallop, No JVD, No Murmur, Normal Peripheral Pulses Neurologic/Psychiatric: Alert, Oriented x3, No Motor/Sensory Deficits, Normal Mood/Affect Results/Procedures Lab Patient resulted labs reviewed. Assessment/Plan Assessment and Plan Assess & Plan/Chief Complaint Assessment: Recurrent herpes zoster Neuropathic pain due to herpes zoster History of melanoma stage IV Plan: Increase Tegretol to 3 times a day Bowel regimen Fiber twice daily Diagnosis/Problems Diagnosis/Problems (1) recurrent herpes zoster infection Status: Acute (2) Failure of outpatient treatment Status: Acute (3) neuropathic pain due to above Status: Acute (4) History of melanoma Status: Chronic Clinical Quality Measures DVT/VTE Risk/Contraindication: Risk Factor Score Per Nursin RFS Level Per Nursing on Admit: 1=Low/No VTE PPX JANEY CASTANEDA DO Feb 16, 2018 12:06
[2018-02-16 15:40] VITALS: BP 114/76
[2018-02-16] MEDS: fentaNYL INJECTION 100 MCG/2 ML AMP IV PRN ×2 (16:05→22:31)
[2018-02-16] MEDS: ATORVASTATIN 10 MG (LIPITOR) TABLET PO SCH (21:00)
[2018-02-16] MEDS: ESZOPICLONE 2 MG TAB PO SCH (21:08)
[2018-02-17] VITALS: BP 107/58
[2018-02-17] MEDS: CATHETER FLUSH 10 ML SYR IV SCH ×3 (05:04→22:09)
[2018-02-17] MEDS: ACYCLOVIR INJECTION 500 MG in NS (IVPB) 250 ML IV SCH ×3 (05:04→22:09)
[2018-02-17 08:00] VITALS: BP 117/78
[2018-02-17] MEDS: CAL. POLYCARBOPHIL 625 MG (FIBERCON) TAB PO SCH ×3 (10:49→20:39)
[2018-02-17] MEDS: VITAMIN D3 5,000 UNITS (CHOLECALCIFEROL ) CAPSULE PO SCH (10:49)
[2018-02-17] MEDS: DULoxetine 30 MG (CYMBALTA) CAP PO SCH (10:49)
[2018-02-17] MEDS: carBAMazepine 200 MG (TEGretol) TAB PO SCH ×3 (10:50→20:40)
--- NOTE | 2018-02-17 12:53 | Progress Note-Hospitalist ---
Subjective HPI/CC On Admission Date Seen by Provider: Feb 17, 2018 Time Seen by Provider: 11:30 This is a 47-year-old white female who has remote history of malignant melanoma 2001. 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 This is been a recurrent problem for which she necessitates IV acyclovir to prevent progression to severe cellulitis and intractable pain. She noticed that she started to have some swelling and irritation of the right side of her nose and tingling and burning of the right side of her face and enlargement of the preauricular lymph node with a great deal of tenderness. This actually started about 4 days prior to presentation and she doubled up on her acyclovir to 800 mg for 5 times a day but it is not helped. She now presents with similar complaints and is requiring inpatient hospitalization for IV acyclovir. Subjective/Events-last exam Patient doing well today Less swelling in the tip of her nose and vesicle is completely dried up Fiber capsule twice daily is working better and she did have a bowel movement Maintained on Tegretol 200 mg 3 times daily to prevent narcotic use Overall feels much improved although still weak Review of Systems Neurological: Numbness Objective Exam Vital Signs Vital Signs Date Time Temp Pulse Resp B/P (MAP) Pulse Ox O2 Delivery O2 Flow Rate FiO2 02/17/18 08:00 97.3 78 18 117/78 (91) 98 Room Air Capillary Refill : Less Than 3 Seconds General Appearance: No Apparent Distress, WD/WN Respiratory: Chest Non Tender, Lungs Clear, Normal Breath Sounds, No Accessory Muscle Use, No Respiratory Distress Cardiovascular: Regular Rate, Rhythm, No Edema, No Gallop, No JVD, No Murmur, Normal Peripheral Pulses Neurologic/Psychiatric: Alert, Oriented x3, No Motor/Sensory Deficits, Normal Mood/Affect Results/Procedures Lab Patient resulted labs reviewed. 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
[2018-02-17] MEDS: fentaNYL INJECTION 100 MCG/2 ML AMP IV PRN ×3 (14:47→23:32)
[2018-02-17 15:50] VITALS: BP 133/87
[2018-02-17] MEDS: ESZOPICLONE 2 MG TAB PO SCH (20:40)
[2018-02-17] MEDS: ATORVASTATIN 10 MG (LIPITOR) TABLET PO SCH (20:40)
[2018-02-18 00:03] VITALS: BP 120/67
[2018-02-18] MEDS: ACYCLOVIR INJECTION 500 MG in NS (IVPB) 250 ML IV SCH ×3 (05:40→21:24)
[2018-02-18] MEDS: CATHETER FLUSH 10 ML SYR IV SCH ×3 (05:40→21:24)
[2018-02-18 08:00] VITALS: BP 109/64
[2018-02-18] MEDS: DULoxetine 30 MG (CYMBALTA) CAP PO SCH (09:37)
[2018-02-18] MEDS: CAL. POLYCARBOPHIL 625 MG (FIBERCON) TAB PO SCH ×3 (09:37→21:23)
[2018-02-18] MEDS: VITAMIN D3 5,000 UNITS (CHOLECALCIFEROL ) CAPSULE PO SCH (09:37)
[2018-02-18] MEDS: carBAMazepine 200 MG (TEGretol) TAB PO SCH ×3 (09:37→21:23)
[2018-02-18] MEDS: fentaNYL INJECTION 100 MCG/2 ML AMP IV PRN ×5 (09:59→21:24)
--- NOTE | 2018-02-18 11:55 | Progress Note-Hospitalist ---
Subjective HPI/CC On Admission Date Seen by Provider: Feb 18, 2018 Time Seen by Provider: 11:00 This is a 47-year-old white female who has remote history of malignant melanoma 2001. 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 This is been a recurrent problem for which she necessitates IV acyclovir to prevent progression to severe cellulitis and intractable pain. She noticed that she started to have some swelling and irritation of the right side of her nose and tingling and burning of the right side of her face and enlargement of the preauricular lymph node with a great deal of tenderness. This actually started about 4 days prior to presentation and she doubled up on her acyclovir to 800 mg for 5 times a day but it is not helped. She now presents with similar complaints and is requiring inpatient hospitalization for IV acyclovir. Subjective/Events-last exam Patient doing better Vesicle still remain at the nose but they are improving She states she cannot go home until vesicles are completely dried up or she will be right back in the hospital Sometimes her hospital stays are between 24 weeks Review of Systems Neurological: Numbness Objective Exam Vital Signs Vital Signs Date Time Temp Pulse Resp B/P (MAP) Pulse Ox O2 Delivery O2 Flow Rate FiO2 02/18/18 08:00 96.7 71 18 109/64 (79) 98 Room Air Capillary Refill : Less Than 3 Seconds General Appearance: No Apparent Distress, WD/WN, Chronically ill Respiratory: Chest Non Tender, Lungs Clear, Normal Breath Sounds, No Accessory Muscle Use, No Respiratory Distress Cardiovascular: Regular Rate, Rhythm, No Edema, No Gallop, No JVD, No Murmur, Normal Peripheral Pulses Neurologic/Psychiatric: Alert, Oriented x3, No Motor/Sensory Deficits, Normal Mood/Affect Results/Procedures Lab Patient resulted labs reviewed. 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
[2018-02-18 16:20] VITALS: BP 120/92
[2018-02-18] MEDS: ATORVASTATIN 10 MG (LIPITOR) TABLET PO SCH (21:23)
[2018-02-18] MEDS: ESZOPICLONE 2 MG TAB PO SCH (21:24)
[2018-02-19] VITALS: BP 115/73
[2018-02-19] MEDS: fentaNYL INJECTION 100 MCG/2 ML AMP IV PRN ×7 (00:57→20:37)
[2018-02-19] MEDS: CATHETER FLUSH 10 ML SYR IV SCH ×3 (06:19→21:40)
[2018-02-19] MEDS: ACYCLOVIR INJECTION 500 MG in NS (IVPB) 250 ML IV SCH ×3 (06:20→21:40)
[2018-02-19 08:00] VITALS: BP 99/64
[2018-02-19] MEDS: CAL. POLYCARBOPHIL 625 MG (FIBERCON) TAB PO SCH ×3 (08:46→20:37)
[2018-02-19] MEDS: VITAMIN D3 5,000 UNITS (CHOLECALCIFEROL ) CAPSULE PO SCH (08:47)
[2018-02-19] MEDS: carBAMazepine 200 MG (TEGretol) TAB PO SCH ×3 (08:47→20:37)
[2018-02-19] MEDS: DULoxetine 30 MG (CYMBALTA) CAP PO SCH (08:47)
--- NOTE | 2018-02-19 12:28 | Progress Note-Hospitalist ---
Subjective HPI/CC On Admission Date Seen by Provider: Feb 19, 2018 Time Seen by Provider: 10:30 This is a 47-year-old white female who has remote history of malignant melanoma 2001. 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 This is been a recurrent problem for which she necessitates IV acyclovir to prevent progression to severe cellulitis and intractable pain. She noticed that she started to have some swelling and irritation of the right side of her nose and tingling and burning of the right side of her face and enlargement of the preauricular lymph node with a great deal of tenderness. This actually started about 4 days prior to presentation and she doubled up on her acyclovir to 800 mg for 5 times a day but it is not helped. She now presents with similar complaints and is requiring inpatient hospitalization for IV acyclovir. Subjective/Events-last exam Patient doing about the same Vesicles in the nose still remain Tolerating medication well Bowels are moving Denies any issues We will check labs in the morning Review of Systems Neurological: Numbness Objective Exam Vital Signs Vital Signs Date Time Temp Pulse Resp B/P (MAP) Pulse Ox O2 Delivery O2 Flow Rate FiO2 02/19/18 08:00 96.8 83 18 99/64 (76) 95 Room Air Capillary Refill : Less Than 3 Seconds General Appearance: No Apparent Distress, WD/WN, Chronically ill Respiratory: Chest Non Tender, Lungs Clear, Normal Breath Sounds, No Accessory Muscle Use, No Respiratory Distress Cardiovascular: Regular Rate, Rhythm, No Edema, No Gallop, No JVD, No Murmur, Normal Peripheral Pulses Neurologic/Psychiatric: Alert, Oriented x3, No Motor/Sensory Deficits, Normal Mood/Affect Results/Procedures Lab Patient resulted labs reviewed. 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 Diagnosis/Problems Diagnosis/Problems (1) recurrent herpes zoster infection Status: Acute (2) Failure of outpatient treatment Status: Acute (3) neuropathic pain due to above Status: Acute (4) History of melanoma Status: Chronic Clinical Quality Measures DVT/VTE Risk/Contraindication: Risk Factor Score Per Nursin RFS Level Per Nursing on Admit: 1=Low/No VTE PPX JANEY CASTANEDA DO Feb 19, 2018 12:28
[2018-02-19 15:27] VITALS: BP 111/78
[2018-02-19] MEDS: ESZOPICLONE 2 MG TAB PO SCH (20:37)
[2018-02-19] MEDS: ATORVASTATIN 10 MG (LIPITOR) TABLET PO SCH (20:37)
[2018-02-20 00:03] VITALS: BP 114/78
[2018-02-20] MEDS: fentaNYL INJECTION 100 MCG/2 ML AMP IV PRN ×7 (00:43→23:11)
[2018-02-20] MEDS: ACYCLOVIR INJECTION 500 MG in NS (IVPB) 250 ML IV SCH ×3 (05:18→20:58)
[2018-02-20] MEDS: CATHETER FLUSH 10 ML SYR IV SCH ×3 (05:18→20:58)
[2018-02-20 05:31] LABS: BASOPHILS % (AUTO) 0 % (0-10); EOSINOPHILS # (AUTO) 0.2 10^3/uL (0.0-0.3); EOSINOPHILS % (AUTO) 4 % (0-10); HEMATOCRIT 36 % (35-52); HEMOGLOBIN 12.1 G/DL (11.5-16.0); LYMPHOCYTES # (AUTO) 1.6 X 10^3 (1.0-4.0); LYMPHOCYTES % (AUTO) 31 % (12-44); MEAN CORPUSCULAR HEMOGLOBIN 31 PG (25-34); MEAN CORPUSCULAR HGB CONC 34 G/DL (32-36); MEAN CORPUSCULAR VOLUME 93 FL (80-99); MEAN PLATELET VOLUME 8.2 FL (7.4-10.4); MONOCYTES # (AUTO) 0.3 X 10^3 (0.0-1.0); MONOCYTES % (AUTO) 6 % (0-12); NEUTROPHILS # (AUTO) 3.1 X 10^3 (1.8-7.8); NEUTROPHILS % (AUTO) 59 % (42-75); PLATELET COUNT 309 10^3/uL (130-400); RED BLOOD COUNT 3.89 10^6/uL (4.35-5.85); RED CELL DISTRIBUTION WIDTH 12.9 % (10.0-14.5); WHITE BLOOD COUNT 5.3 10^3/uL (4.3-11.0)
[2018-02-20 05:51] LABS: ALANINE AMINOTRANSFERASE 17 U/L (0-55); ALBUMIN 3.8 GM/DL (3.2-4.5); ALKALINE PHOSPHATASE 80 U/L (40-136); BILIRUBIN,TOTAL 0.4 MG/DL (0.1-1.0); BUN/CREATININE RATIO 16; CALCIUM 9.1 MG/DL (8.5-10.1); CARBON DIOXIDE 23 MMOL/L (21-32); CHLORIDE 102 MMOL/L (98-107); CREATININE SERUM 0.82 MG/DL (0.60-1.30); GFR ESTIMATED > 60; GLUCOSE 99 MG/DL (70-105); POTASSIUM 4.3 MMOL/L (3.6-5.0); SODIUM 137 MMOL/L (135-145); TOTAL PROTEIN 6.4 GM/DL (6.4-8.2)
[2018-02-20 08:00] VITALS: BP 126/77
[2018-02-20] MEDS: carBAMazepine 200 MG (TEGretol) TAB PO SCH ×3 (08:06→20:57)
[2018-02-20] MEDS: CAL. POLYCARBOPHIL 625 MG (FIBERCON) TAB PO SCH ×3 (08:06→20:57)
[2018-02-20] MEDS: DULoxetine 30 MG (CYMBALTA) CAP PO SCH (08:06)
[2018-02-20] MEDS: VITAMIN D3 5,000 UNITS (CHOLECALCIFEROL ) CAPSULE PO SCH (08:06)
--- NOTE | 2018-02-20 13:41 | NUR ---
Pt is Rastafari. Industrial Engineer provided prayer and Communion.
[2018-02-20 16:00] VITALS: BP 123/77
--- NOTE | 2018-02-20 18:30 | Progress Note (SOAP) ---
Subjective Date Seen by a Provider: Feb 20, 2018 Time Seen by a Provider: 08:30 Subjective/Events-last exam Fwup recurrent herpes zoster of face. Reports red spot to tip of nose. Pain better with tegretol. Objective Exam Vital Signs Date Time Temp Pulse Resp B/P (MAP) Pulse Ox O2 Delivery O2 Flow Rate FiO2 02/20/18 16:00 98.0 88 18 123/77 (92) 99 Room Air 02/20/18 08:00 97.4 76 20 126/77 (93) 98 Room Air 02/20/18 00:03 96.0 109 16 114/78 (90) 98 Room Air I & O 02/20/18 07:00 Intake Total 3090 ml Output Total 2900 ml Balance 190 ml Capillary Refill : Less Than 3 Seconds General Appearance: No Apparent Distress Neck: Supple Respiratory: Lungs Clear Cardiovascular: Regular Rate, Rhythm Gastrointestinal: normal bowel sounds, non tender, soft Extremity: Non Tender, No Calf Tenderness, No Pedal Edema Neurologic/Psychiatric: Alert, Oriented x3 Results Lab Laboratory Tests 02/20/18 05:25: White Blood Count 5.3, Red Blood Count 3.89L, Hemoglobin 12.1, Hematocrit 36, Mean Corpuscular Volume 93, Mean Corpuscular Hemoglobin 31, Mean Corpuscular Hemoglobin Concent 34, Red Cell Distribution Width 12.9, Platelet Count 309, Mean Platelet Volume 8.2, Neutrophils (%) (Auto) 59, Lymphocytes (%) (Auto) 31, Monocytes (%) (Auto) 6, Eosinophils (%) (Auto) 4, Basophils (%) (Auto) 0, Neutrophils # (Auto) 3.1, Lymphocytes # (Auto) 1.6, Monocytes # (Auto) 0.3, Eosinophils # (Auto) 0.2, Basophils # (Auto) 0.0, Sodium Level 137, Potassium Level 4.3, Chloride Level 102, Carbon Dioxide Level 23, Anion Gap 12, Blood Urea Nitrogen 13, Creatinine 0.82, Estimat Glomerular Filtration Rate > 60, BUN/ Creatinine Ratio 16, Glucose Level 99, Calcium Level 9.1, Corrected Calcium 9.3 , Total Bilirubin 0.4, Aspartate Amino Transf (AST/SGOT) 12, Alanine Aminotransferase (ALT/SGPT) 17, Alkaline Phosphatase 80, Total Protein 6.4, Albumin 3.8 Microbiology 02/12/18 Blood Culture - Final, Complete No growth Assessment/Plan Assessment/Plan Assess & Plan/Chief Complaint 1. Recurrent Herpes Zoster of face--continue IV zovirax and tegretol Clinical Quality Measures DVT/VTE Risk/Contraindication: Risk Factor Score Per Nursin RFS Level Per Nursing on Admit: 1=Low/No VTE PPX ABELARDO CASE DO Feb 20, 2018 18:30
[2018-02-20] MEDS: ESZOPICLONE 2 MG TAB PO SCH (20:57)
[2018-02-20] MEDS: ATORVASTATIN 10 MG (LIPITOR) TABLET PO SCH (20:57)
[2018-02-21] VITALS: BP 103/63
[2018-02-21] MEDS: fentaNYL INJECTION 100 MCG/2 ML AMP IV PRN ×8 (01:38→20:51)
[2018-02-21] MEDS: CATHETER FLUSH 10 ML SYR IV SCH ×3 (05:45→20:56)
[2018-02-21] MEDS: ACYCLOVIR INJECTION 500 MG in NS (IVPB) 250 ML IV SCH ×3 (05:45→20:56)
[2018-02-21] MEDS: DULoxetine 30 MG (CYMBALTA) CAP PO SCH (08:01)
[2018-02-21] MEDS: CAL. POLYCARBOPHIL 625 MG (FIBERCON) TAB PO SCH ×3 (08:02→20:51)
[2018-02-21] MEDS: carBAMazepine 200 MG (TEGretol) TAB PO SCH ×3 (08:02→20:52)
[2018-02-21] MEDS: CATHETER FLUSH 10 ML SYR IV PRN (08:02)
[2018-02-21] MEDS: VITAMIN D3 5,000 UNITS (CHOLECALCIFEROL ) CAPSULE PO SCH (08:02)
[2018-02-21 08:18] VITALS: BP 121/75
--- NOTE | 2018-02-21 08:55 | NUR ---
A total of six sutures removed from her right lower back per Dr. Webber's orders this a.m. alcohol prep to site before applying bandaid to site.
--- NOTE | 2018-02-21 12:00 | NUR ---
provided prayer and Communion.
[2018-02-21] MEDS: hydrOXYzine (ATARAX) 10 MG TAB PO SCH ×2 (13:21→20:51)
[2018-02-21 16:00] VITALS: BP 124/79
[2018-02-21] MEDS: ESZOPICLONE 2 MG TAB PO SCH (20:52)
[2018-02-21] MEDS: ATORVASTATIN 10 MG (LIPITOR) TABLET PO SCH (20:52)
[2018-02-22] VITALS: BP 112/68
[2018-02-22] MEDS: fentaNYL INJECTION 100 MCG/2 ML AMP IV PRN ×6 (00:44→22:21)
[2018-02-22] MEDS: CATHETER FLUSH 10 ML SYR IV SCH ×3 (05:43→20:31)
[2018-02-22] MEDS: ACYCLOVIR INJECTION 500 MG in NS (IVPB) 250 ML IV SCH ×3 (05:43→22:21)
[2018-02-22 07:57] VITALS: BP 117/74
[2018-02-22] MEDS: carBAMazepine 200 MG (TEGretol) TAB PO SCH ×3 (09:54→20:31)
[2018-02-22] MEDS: VITAMIN D3 5,000 UNITS (CHOLECALCIFEROL ) CAPSULE PO SCH (09:54)
[2018-02-22] MEDS: hydrOXYzine (ATARAX) 10 MG TAB PO SCH (09:54)
[2018-02-22] MEDS: DULoxetine 30 MG (CYMBALTA) CAP PO SCH (09:54)
[2018-02-22] MEDS: CAL. POLYCARBOPHIL 625 MG (FIBERCON) TAB PO SCH ×3 (10:06→20:31)
--- NOTE | 2018-02-22 11:44 | Progress Note (SOAP) ---
Subjective Date Seen by a Provider: Feb 21, 2018 Time Seen by a Provider: 12:35 Subjective/Events-last exam Fwup recurrent herpes zoster of face. Reports swelling like hives/itchy to nose. Objective Exam Vital Signs Date Time Temp Pulse Resp B/P (MAP) Pulse Ox O2 Delivery O2 Flow Rate FiO2 02/22/18 07:57 97.7 82 18 117/74 (88) 94 Room Air 02/22/18 00:00 98.1 88 18 112/68 (83) 96 Room Air 02/21/18 16:00 96.8 104 20 124/79 (94) 97 Room Air I & O 02/22/18 07:00 Intake Total 3140 ml Output Total 5000 ml Balance -1860 ml Capillary Refill : Less Than 3 Seconds General Appearance: No Apparent Distress Neck: Supple Respiratory: Lungs Clear Cardiovascular: Regular Rate, Rhythm Neurologic/Psychiatric: Alert, Oriented x3 Skin: Erythema (mild to tip of nose) Results Lab Microbiology 02/12/18 Blood Culture - Final, Complete No growth Assessment/Plan Assessment/Plan Assess & Plan/Chief Complaint 1. Recurrent Herpes Zoster of face--continue IV zovirax and tegretol, add hydroxyzine for hive like reaction Clinical Quality Measures DVT/VTE Risk/Contraindication: Risk Factor Score Per Nursin RFS Level Per Nursing on Admit: 1=Low/No VTE PPX ABELARDO CASE DO Feb 22, 2018 11:44
--- NOTE | 2018-02-22 11:45 | Progress Note (SOAP) ---
Subjective Date Seen by a Provider: Feb 22, 2018 Time Seen by a Provider: 11:44 Subjective/Events-last exam Fwup recurrent herpes zoster of face. Tip of nose not as red but still reports itching and burning. Objective Exam Vital Signs Date Time Temp Pulse Resp B/P (MAP) Pulse Ox O2 Delivery O2 Flow Rate FiO2 02/22/18 07:57 97.7 82 18 117/74 (88) 94 Room Air 02/22/18 00:00 98.1 88 18 112/68 (83) 96 Room Air 02/21/18 16:00 96.8 104 20 124/79 (94) 97 Room Air I & O 02/22/18 07:00 Intake Total 3140 ml Output Total 5000 ml Balance -1860 ml Capillary Refill : Less Than 3 Seconds General Appearance: No Apparent Distress Neck: Supple Neurologic/Psychiatric: Alert, Oriented x3 Skin: Other (tip of nose not as erythemic and left nares sore almost gone) Results Lab Microbiology 02/12/18 Blood Culture - Final, Complete No growth Assessment/Plan Assessment/Plan Assess & Plan/Chief Complaint 1. Recurrent Herpes Zoster of face--continue IV zovirax and tegretol, increase hydroxyzine dose for hive like reaction and add low dose gabapentin to tegretol Clinical Quality Measures DVT/VTE Risk/Contraindication: Risk Factor Score Per Nursin RFS Level Per Nursing on Admit: 1=Low/No VTE PPX ABELARDO CASE DO Feb 22, 2018 11:45
--- NOTE | 2018-02-22 12:19 | NUR ---
provided prayer and Communion.
[2018-02-22] MEDS: hydrOXYzine (VISTARIL) 25 MG CAP PO SCH ×2 (13:36→20:31)
[2018-02-22 16:00] VITALS: BP 121/77
[2018-02-22] MEDS: ATORVASTATIN 10 MG (LIPITOR) TABLET PO SCH (20:31)
[2018-02-22] MEDS: ESZOPICLONE 2 MG TAB PO SCH (20:31)
[2018-02-22] MEDS: GABAPENTIN 100 MG (NEURONTIN) CAP PO SCH (20:31)
[2018-02-23] VITALS: BP 119/73
[2018-02-23] MEDS: fentaNYL INJECTION 100 MCG/2 ML AMP IV PRN ×5 (02:02→19:03)
[2018-02-23] MEDS: CATHETER FLUSH 10 ML SYR IV SCH ×3 (05:30→20:31)
[2018-02-23] MEDS: ACYCLOVIR INJECTION 500 MG in NS (IVPB) 250 ML IV SCH ×3 (05:30→22:01)
[2018-02-23 08:41] VITALS: BP 97/57
[2018-02-23] MEDS: GABAPENTIN 100 MG (NEURONTIN) CAP PO SCH ×2 (09:49→20:30)
[2018-02-23] MEDS: DULoxetine 30 MG (CYMBALTA) CAP PO SCH (09:49)
[2018-02-23] MEDS: hydrOXYzine (VISTARIL) 25 MG CAP PO SCH ×3 (09:50→20:30)
[2018-02-23] MEDS: VITAMIN D3 5,000 UNITS (CHOLECALCIFEROL ) CAPSULE PO SCH (09:50)
[2018-02-23] MEDS: CAL. POLYCARBOPHIL 625 MG (FIBERCON) TAB PO SCH ×3 (09:50→20:30)
[2018-02-23] MEDS: carBAMazepine 200 MG (TEGretol) TAB PO SCH ×3 (09:50→20:30)
--- NOTE | 2018-02-23 11:36 | Progress Note-Hospitalist ---
Subjective HPI/CC On Admission Date Seen by Provider: Feb 23, 2018 Time Seen by Provider: 10:30 This is a 47-year-old white female who has remote history of malignant melanoma 2001. 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 This is been a recurrent problem for which she necessitates IV acyclovir to prevent progression to severe cellulitis and intractable pain. She noticed that she started to have some swelling and irritation of the right side of her nose and tingling and burning of the right side of her face and enlargement of the preauricular lymph node with a great deal of tenderness. This actually started about 4 days prior to presentation and she doubled up on her acyclovir to 800 mg for 5 times a day but it is not helped. She now presents with similar complaints and is requiring inpatient hospitalization for IV acyclovir. Subjective/Events-last exam Gabapentin seems to be helping Nurse is concerned about the continued use of the IV pain medication I counseled her to work on weaning off the narcotics Vesicles are drying up and much improved neuropathic pain Review of Systems Neurological: Numbness Objective Exam Vital Signs Vital Signs Date Time Temp Pulse Resp B/P (MAP) Pulse Ox O2 Delivery O2 Flow Rate FiO2 02/23/18 08:41 97.4 87 20 97/57 (70) 96 Room Air Capillary Refill : Less Than 3 Seconds General Appearance: No Apparent Distress, WD/WN Respiratory: Chest Non Tender, Lungs Clear, Normal Breath Sounds, No Accessory Muscle Use, No Respiratory Distress Neurologic/Psychiatric: Alert, Oriented x3, No Motor/Sensory Deficits, Normal Mood/Affect Results/Procedures Lab Patient resulted labs reviewed. 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
[2018-02-23 16:00] VITALS: BP 124/70
[2018-02-23] MEDS: ESZOPICLONE 2 MG TAB PO SCH (20:30)
[2018-02-23] MEDS: ATORVASTATIN 10 MG (LIPITOR) TABLET PO SCH (20:31)
[2018-02-23 22:36] VITALS: BP 124/71
[2018-02-24] VITALS: BP 124/71
[2018-02-24] MEDS: fentaNYL INJECTION 100 MCG/2 ML AMP IV PRN ×5 (00:35→21:32)
[2018-02-24] MEDS: ACYCLOVIR INJECTION 500 MG in NS (IVPB) 250 ML IV SCH ×3 (05:17→21:32)
[2018-02-24] MEDS: CATHETER FLUSH 10 ML SYR IV SCH ×3 (05:17→17:44)
[2018-02-24 08:00] VITALS: BP 101/61
[2018-02-24] MEDS: CAL. POLYCARBOPHIL 625 MG (FIBERCON) TAB PO SCH ×3 (08:11→20:50)
[2018-02-24] MEDS: carBAMazepine 200 MG (TEGretol) TAB PO SCH ×3 (08:11→20:50)
[2018-02-24] MEDS: VITAMIN D3 5,000 UNITS (CHOLECALCIFEROL ) CAPSULE PO SCH (08:12)
[2018-02-24] MEDS: hydrOXYzine (VISTARIL) 25 MG CAP PO SCH ×3 (08:12→20:50)
[2018-02-24] MEDS: DULoxetine 30 MG (CYMBALTA) CAP PO SCH (08:12)
[2018-02-24] MEDS: GABAPENTIN 100 MG (NEURONTIN) CAP PO SCH ×2 (08:12→20:50)
--- NOTE | 2018-02-24 12:36 | Progress Note-Hospitalist ---
Subjective HPI/CC On Admission Date Seen by Provider: Feb 24, 2018 Time Seen by Provider: 11:15 This is a 47-year-old white female who has remote history of malignant melanoma 2001. 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 This is been a recurrent problem for which she necessitates IV acyclovir to prevent progression to severe cellulitis and intractable pain. She noticed that she started to have some swelling and irritation of the right side of her nose and tingling and burning of the right side of her face and enlargement of the preauricular lymph node with a great deal of tenderness. This actually started about 4 days prior to presentation and she doubled up on her acyclovir to 800 mg for 5 times a day but it is not helped. She now presents with similar complaints and is requiring inpatient hospitalization for IV acyclovir. Subjective/Events-last exam Still requiring IV pain medication periodically Told her to ambulate in the halls more today Very difficult management issue This is the 12th day of hospital stay Reports pain is periodically in the face Review of Systems General: Fatigue Neurological: Numbness Objective Exam Vital Signs Vital Signs Date Time Temp Pulse Resp B/P (MAP) Pulse Ox O2 Delivery O2 Flow Rate FiO2 02/24/18 08:00 97.0 65 16 101/61 (74) 98 Room Air Capillary Refill : Less Than 3 Seconds General Appearance: No Apparent Distress, WD/WN Respiratory: Chest Non Tender, Lungs Clear, Normal Breath Sounds, No Accessory Muscle Use, No Respiratory Distress Cardiovascular: Regular Rate, Rhythm, No Edema, No Gallop, No JVD, No Murmur, Normal Peripheral Pulses Neurologic/Psychiatric: Alert, Oriented x3, No Motor/Sensory Deficits, Normal Mood/Affect Results/Procedures Lab Patient resulted labs reviewed. 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
[2018-02-24 15:50] VITALS: BP 114/70
[2018-02-24] MEDS: ESZOPICLONE 2 MG TAB PO SCH (20:49)
[2018-02-24] MEDS: ATORVASTATIN 10 MG (LIPITOR) TABLET PO SCH (20:50)
[2018-02-25 00:26] VITALS: BP 118/74
[2018-02-25] MEDS: fentaNYL INJECTION 100 MCG/2 ML AMP IV PRN ×6 (01:44→22:07)
[2018-02-25] MEDS: CATHETER FLUSH 10 ML SYR IV SCH ×3 (05:20→22:06)
[2018-02-25] MEDS: ACYCLOVIR INJECTION 500 MG in NS (IVPB) 250 ML IV SCH ×3 (05:20→22:06)
[2018-02-25 08:00] VITALS: BP 120/76
[2018-02-25] MEDS: CAL. POLYCARBOPHIL 625 MG (FIBERCON) TAB PO SCH ×3 (08:43→22:05)
[2018-02-25] MEDS: carBAMazepine 200 MG (TEGretol) TAB PO SCH ×3 (08:43→22:06)
[2018-02-25] MEDS: VITAMIN D3 5,000 UNITS (CHOLECALCIFEROL ) CAPSULE PO SCH (08:43)
[2018-02-25] MEDS: GABAPENTIN 100 MG (NEURONTIN) CAP PO SCH ×3 (08:43→22:06)
[2018-02-25] MEDS: hydrOXYzine (VISTARIL) 25 MG CAP PO SCH ×3 (08:43→22:06)
[2018-02-25] MEDS: DULoxetine 30 MG (CYMBALTA) CAP PO SCH (08:43)
[2018-02-25] MEDS ORDERED: CELECOXIB 100 MG (CeleBREX) CAP PO NR (12:30)
--- NOTE | 2018-02-25 12:41 | Progress Note (SOAP) ---
Subjective Date Seen by a Provider: Feb 25, 2018 Time Seen by a Provider: 12:40 Subjective/Events-last exam Fwup recurrent herpes zoster of face. Nose doing better but states right side of face is swollen now. Objective Exam Vital Signs Date Time Temp Pulse Resp B/P (MAP) Pulse Ox O2 Delivery O2 Flow Rate FiO2 02/25/18 08:00 Room Air 02/25/18 08:00 96.1 88 16 120/76 (91) 96 Room Air 02/25/18 00:26 97.4 87 18 118/74 (89) 97 Room Air 02/24/18 20:00 Room Air 02/24/18 15:50 97.4 105 20 114/70 (85) 96 Room Air I & O 02/25/18 07:00 Intake Total 1870 ml Output Total 2800 ml Balance -930 ml Capillary Refill : Less Than 3 Seconds General Appearance: No Apparent Distress Neurologic/Psychiatric: Alert, Oriented x3 Skin: Normal Color, Warm/Dry Results Lab Microbiology 02/12/18 Blood Culture - Final, Complete No growth Assessment/Plan Assessment/Plan Assess & Plan/Chief Complaint 1. Recurrent Herpes Zoster of face--continue IV zovirax and increased tegretol , increase gabapentin dose and add celebrex and decrease fentanyl dose Clinical Quality Measures DVT/VTE Risk/Contraindication: Risk Factor Score Per Nursin RFS Level Per Nursing on Admit: 1=Low/No VTE PPX ABELARDO CASE DO Feb 25, 2018 12:41
[2018-02-25 16:00] VITALS: BP 123/83
[2018-02-25] MEDS: CELECOXIB 100 MG (CeleBREX) CAP PO SCH (22:05)
[2018-02-25] MEDS: ESZOPICLONE 2 MG TAB PO SCH (22:06)
[2018-02-25] MEDS: ATORVASTATIN 10 MG (LIPITOR) TABLET PO SCH (22:06)
[2018-02-26] VITALS: BP 118/85
[2018-02-26] MEDS: fentaNYL INJECTION 100 MCG/2 ML AMP IV PRN ×8 (01:00→21:50)
[2018-02-26] MEDS: CATHETER FLUSH 10 ML SYR IV SCH ×3 (05:32→21:49)
[2018-02-26 05:41] LABS: BASOPHILS % (AUTO) 0 % (0-10); EOSINOPHILS # (AUTO) 0.2 10^3/uL (0.0-0.3); EOSINOPHILS % (AUTO) 4 % (0-10); HEMATOCRIT 37 % (35-52); HEMOGLOBIN 12.6 G/DL (11.5-16.0); LYMPHOCYTES # (AUTO) 1.7 X 10^3 (1.0-4.0); LYMPHOCYTES % (AUTO) 30 % (12-44); MEAN CORPUSCULAR HEMOGLOBIN 31 PG (25-34); MEAN CORPUSCULAR HGB CONC 34 G/DL (32-36); MEAN CORPUSCULAR VOLUME 93 FL (80-99); MEAN PLATELET VOLUME 7.9 FL (7.4-10.4); MONOCYTES # (AUTO) 0.4 X 10^3 (0.0-1.0); MONOCYTES % (AUTO) 6 % (0-12); NEUTROPHILS # (AUTO) 3.5 X 10^3 (1.8-7.8); NEUTROPHILS % (AUTO) 60 % (42-75); PLATELET COUNT 298 10^3/uL (130-400); RED BLOOD COUNT 4.03 10^6/uL (4.35-5.85); RED CELL DISTRIBUTION WIDTH 13.3 % (10.0-14.5); WHITE BLOOD COUNT 5.8 10^3/uL (4.3-11.0)
[2018-02-26 05:59] LABS: ALANINE AMINOTRANSFERASE 15 U/L (0-55); ALBUMIN 3.9 GM/DL (3.2-4.5); ALKALINE PHOSPHATASE 78 U/L (40-136); BILIRUBIN,TOTAL 0.2 MG/DL (0.1-1.0); BUN/CREATININE RATIO 18; CALCIUM 9.1 MG/DL (8.5-10.1); CARBON DIOXIDE 24 MMOL/L (21-32); CHLORIDE 103 MMOL/L (98-107); GFR ESTIMATED > 60; GLUCOSE 94 MG/DL (70-105); POTASSIUM 4.1 MMOL/L (3.6-5.0); SODIUM 137 MMOL/L (135-145); TOTAL PROTEIN 6.4 GM/DL (6.4-8.2)
[2018-02-26 08:00] VITALS: BP 119/80
[2018-02-26] MEDS: DULoxetine 30 MG (CYMBALTA) CAP PO SCH (08:22)
[2018-02-26] MEDS: VITAMIN D3 5,000 UNITS (CHOLECALCIFEROL ) CAPSULE PO SCH (08:22)
[2018-02-26] MEDS: carBAMazepine 200 MG (TEGretol) TAB PO SCH ×3 (08:22→21:48)
[2018-02-26] MEDS: CAL. POLYCARBOPHIL 625 MG (FIBERCON) TAB PO SCH ×3 (08:22→21:49)
[2018-02-26] MEDS: hydrOXYzine (VISTARIL) 25 MG CAP PO SCH ×3 (08:22→21:49)
[2018-02-26] MEDS: CELECOXIB 100 MG (CeleBREX) CAP PO SCH ×2 (08:22→21:48)
[2018-02-26] MEDS: GABAPENTIN 100 MG (NEURONTIN) CAP PO SCH ×2 (08:23→12:26)
[2018-02-26] MEDS: GABAPENTIN 300 MG (NEURONTIN) CAP PO SCH ×2 (12:48→21:48)
--- NOTE | 2018-02-26 12:48 | NUR ---
Gabapentin 100 mg given prior to Dr. Flor changing the dose of Gabapentin 300 mg po TID. This RN will place a one time dose order to give 200 mg of Gabapentin to reach the right dose of 300 mg for the 1300 dose.
[2018-02-26] MEDS ORDERED: GABAPENTIN 100 MG (NEURONTIN) CAP PO NR (13:00)
[2018-02-26] MEDS: ACYCLOVIR INJECTION 800 MG in NS (IVPB) 250 ML IV SCH ×2 (13:31→21:49)
[2018-02-26] MEDS: CATHETER FLUSH 10 ML SYR IV PRN ×2 (14:31→16:57)
[2018-02-26 16:00] VITALS: BP 115/77
--- NOTE | 2018-02-26 18:10 | Progress Note (SOAP) ---
Subjective Date Seen by a Provider: Feb 26, 2018 Time Seen by a Provider: 12:35 Subjective/Events-last exam Fwup recurrent herpes zoster of face. Right parotid area less swollen but still reports firing in face and states that if goes home with this still ongoing that oral anitvirals won't work and she will be right back in. Objective Exam Vital Signs Date Time Temp Pulse Resp B/P (MAP) Pulse Ox O2 Delivery O2 Flow Rate FiO2 02/26/18 16:00 98.2 87 16 115/77 (90) 94 02/26/18 08:00 97.3 77 18 119/80 (93) 98 Room Air 02/26/18 00:00 96.5 97 16 118/85 (96) 98 Room Air 02/25/18 20:00 Room Air I & O 02/26/18 07:00 Intake Total 3440 ml Output Total 2300 ml Balance 1140 ml Capillary Refill : Less Than 3 Seconds General Appearance: No Apparent Distress Neurologic/Psychiatric: Alert, Oriented x3 Skin: Normal Color, Warm/Dry Results Lab Laboratory Tests 02/26/18 05:27: White Blood Count 5.8, Red Blood Count 4.03L, Hemoglobin 12.6, Hematocrit 37, Mean Corpuscular Volume 93, Mean Corpuscular Hemoglobin 31, Mean Corpuscular Hemoglobin Concent 34, Red Cell Distribution Width 13.3, Platelet Count 298, Mean Platelet Volume 7.9, Neutrophils (%) (Auto) 60, Lymphocytes (%) (Auto) 30, Monocytes (%) (Auto) 6, Eosinophils (%) (Auto) 4, Basophils (%) (Auto) 0, Neutrophils # (Auto) 3.5, Lymphocytes # (Auto) 1.7, Monocytes # (Auto) 0.4, Eosinophils # (Auto) 0.2, Basophils # (Auto) 0.0, Sodium Level 137, Potassium Level 4.1, Chloride Level 103, Carbon Dioxide Level 24, Anion Gap 10, Blood Urea Nitrogen 14, Creatinine 0.80, Estimat Glomerular Filtration Rate > 60, BUN/ Creatinine Ratio 18, Glucose Level 94, Calcium Level 9.1, Corrected Calcium 9.2 , Total Bilirubin 0.2, Aspartate Amino Transf (AST/SGOT) 11, Alanine Aminotransferase (ALT/SGPT) 15, Alkaline Phosphatase 78, Total Protein 6.4, Albumin 3.9 Microbiology 02/12/18 Blood Culture - Final, Complete No growth Assessment/Plan Assessment/Plan Assess & Plan/Chief Complaint 1. Recurrent Herpes Zoster of face--continue IV zovirax and increased tegretol , increase gabapentin dose to 300mg po TID, added celebrex and decreased fentanyl dose but nursing reports asking for fentanyl for a pain level of 4 Clinical Quality Measures DVT/VTE Risk/Contraindication: Risk Factor Score Per Nursin RFS Level Per Nursing on Admit: 1=Low/No VTE PPX ABELARDO CASE DO Feb 26, 2018 18:10
[2018-02-26] MEDS: ESZOPICLONE 2 MG TAB PO SCH (21:47)
[2018-02-26] MEDS: ATORVASTATIN 10 MG (LIPITOR) TABLET PO SCH (21:48)
[2018-02-27] VITALS: BP 119/81
[2018-02-27 01:06] VITALS: BP 126/75
[2018-02-27] MEDS: fentaNYL INJECTION 100 MCG/2 ML AMP IV PRN ×7 (01:07→21:47)
[2018-02-27] MEDS: ACYCLOVIR INJECTION 800 MG in NS (IVPB) 250 ML IV SCH ×3 (05:38→21:59)
[2018-02-27] MEDS: CATHETER FLUSH 10 ML SYR IV SCH ×3 (05:38→21:47)
[2018-02-27 08:00] VITALS: BP 110/64
[2018-02-27 08:03] VITALS: BP 110/64
[2018-02-27 09:06] VITALS: BP 110/64
[2018-02-27] MEDS: CELECOXIB 100 MG (CeleBREX) CAP PO SCH ×2 (10:28→21:44)
[2018-02-27] MEDS: VITAMIN D3 5,000 UNITS (CHOLECALCIFEROL ) CAPSULE PO SCH (10:28)
[2018-02-27] MEDS: DULoxetine 30 MG (CYMBALTA) CAP PO SCH (10:28)
[2018-02-27] MEDS: hydrOXYzine (VISTARIL) 25 MG CAP PO SCH ×3 (10:28→21:44)
[2018-02-27] MEDS: CAL. POLYCARBOPHIL 625 MG (FIBERCON) TAB PO SCH ×3 (10:28→21:44)
[2018-02-27] MEDS: carBAMazepine 200 MG (TEGretol) TAB PO SCH ×2 (10:29→21:58)
[2018-02-27] MEDS: GABAPENTIN 300 MG (NEURONTIN) CAP PO SCH (10:29)
--- NOTE | 2018-02-27 13:07 | NUR ---
provided prayer and Communion.
[2018-02-27] MEDS: GABAPENTIN 400 MG (NEURONTIN) CAP PO SCH ×2 (14:34→21:44)
[2018-02-27 16:00] VITALS: BP 131/85
--- NOTE | 2018-02-27 18:14 | Progress Note (SOAP) ---
Subjective Date Seen by a Provider: Feb 27, 2018 Time Seen by a Provider: 12:45 Subjective/Events-last exam Fwup recurrent herpes zoster of face.Still reports nerve firing to nose and right cheek area. Objective Exam Vital Signs Date Time Temp Pulse Resp B/P (MAP) Pulse Ox O2 Delivery O2 Flow Rate FiO2 02/27/18 16:00 97.6 99 18 131/85 (100) 96 Room Air 02/27/18 09:06 98.6 98 16 110/64 (79) 98 Room Air 02/27/18 08:00 98.6 98 16 110/64 (79) 98 Room Air 02/27/18 01:06 81 20 126/75 (92) 02/27/18 00:00 98.3 88 16 119/81 (94) 97 Room Air I & O 02/27/18 07:00 Intake Total 4142 ml Output Total 4200 ml Balance -58 ml Capillary Refill : Less Than 3 Seconds General Appearance: No Apparent Distress Neurologic/Psychiatric: Alert, Oriented x3 Skin: Normal Color, Warm/Dry Results Lab Microbiology 02/12/18 Blood Culture - Final, Complete No growth Assessment/Plan Assessment/Plan Assess & Plan/Chief Complaint 1. Recurrent Herpes Zoster of face--continue IV zovirax and change tegretol to lyrica, increase gabapentin dose to 400mg po TID, added celebrex and decreased fentanyl dose but nursing reports asking for fentanyl for a pain level of 4 Clinical Quality Measures DVT/VTE Risk/Contraindication: Risk Factor Score Per Nursin RFS Level Per Nursing on Admit: 1=Low/No VTE PPX ABELARDO CASE DO Feb 27, 2018 18:14
[2018-02-27] MEDS: PREGABALIN 100 MG (LYRICA) CAPSULE PO SCH (21:44)
[2018-02-27] MEDS: ATORVASTATIN 10 MG (LIPITOR) TABLET PO SCH (21:44)
[2018-02-27] MEDS: ESZOPICLONE 2 MG TAB PO SCH (21:58)
[2018-02-28 00:44] VITALS: BP 114/77
[2018-02-28] MEDS: fentaNYL INJECTION 100 MCG/2 ML AMP IV PRN ×9 (00:47→23:21)
[2018-02-28] MEDS: CATHETER FLUSH 10 ML SYR IV SCH ×3 (05:15→21:31)
[2018-02-28] MEDS: ACYCLOVIR INJECTION 800 MG in NS (IVPB) 250 ML IV SCH ×3 (05:15→21:29)
[2018-02-28 07:30] VITALS: BP 111/56
[2018-02-28] MEDS: DULoxetine 30 MG (CYMBALTA) CAP PO SCH (09:17)
[2018-02-28] MEDS: CAL. POLYCARBOPHIL 625 MG (FIBERCON) TAB PO SCH ×3 (09:17→21:25)
[2018-02-28] MEDS: hydrOXYzine (VISTARIL) 25 MG CAP PO SCH ×3 (09:17→21:10)
[2018-02-28] MEDS: carBAMazepine 200 MG (TEGretol) TAB PO SCH (09:17)
[2018-02-28] MEDS: GABAPENTIN 400 MG (NEURONTIN) CAP PO SCH (09:17)
[2018-02-28] MEDS: PREGABALIN 100 MG (LYRICA) CAPSULE PO SCH (09:17)
[2018-02-28] MEDS: VITAMIN D3 5,000 UNITS (CHOLECALCIFEROL ) CAPSULE PO SCH (09:17)
[2018-02-28] MEDS: CELECOXIB 100 MG (CeleBREX) CAP PO SCH ×2 (09:18→21:09)
[2018-02-28] MEDS ORDERED: PSEUDOEPHEDRINE HCL 30 MG (SUDAFED) TAB PO PRN (13:15)
[2018-02-28] MEDS ORDERED: PATIENT MAY USE OWN MEDS, ALL MC SCH (13:15)
[2018-02-28] MEDS ORDERED: ZOVIRAX TOP PRN (13:15)
[2018-02-28] MEDS: GABAPENTIN 600 MG (NEURONTIN) TAB PO SCH ×2 (13:31→21:10)
[2018-02-28 16:00] VITALS: BP 138/91
--- NOTE | 2018-02-28 18:16 | Progress Note (SOAP) ---
Subjective Date Seen by a Provider: Feb 28, 2018 Time Seen by a Provider: 18:14 Subjective/Events-last exam Fwup recurrent shingles of face. States nerve pain a little better but still present. Objective Exam Vital Signs Date Time Temp Pulse Resp B/P (MAP) Pulse Ox O2 Delivery O2 Flow Rate FiO2 02/28/18 16:00 99.2 105 14 138/91 (107) 95 Room Air 02/28/18 13:00 97.7 02/28/18 09:50 97.7 02/28/18 09:33 97.7 02/28/18 07:30 97.7 84 18 111/56 (74) 97 Room Air 02/28/18 00:44 98.8 88 18 114/77 (89) 97 Room Air I & O 02/28/18 07:00 Intake Total 4220 ml Output Total 5200 ml Balance -980 ml Capillary Refill : Less Than 3 Seconds General Appearance: No Apparent Distress Neck: Supple Neurologic/Psychiatric: Alert, Oriented x3 Skin: Warm/Dry Results Lab Microbiology 02/12/18 Blood Culture - Final, Complete No growth Assessment/Plan Assessment/Plan Assess & Plan/Chief Complaint 1. Recurrent Herpes Zoster of face--continue IV zovirax and change tegretol to lyrica and increase lyrica dose, increase gabapentin dose to 600mg po TID, added celebrex and decreased fentanyl dose Clinical Quality Measures DVT/VTE Risk/Contraindication: Risk Factor Score Per Nursin RFS Level Per Nursing on Admit: 1=Low/No VTE PPX ABELARDO CASE DO Feb 28, 2018 18:16
--- NOTE | 2018-02-28 18:46 | NUR ---
NOTE [facility]RETT PT WAS MOVED TO RM 421 -- WATER WAS LEAKING THROUGH THE CEILING OVER PT BED -- PER MAINTENANCE SINK ON 5TH WAS LEAKING
[2018-02-28] MEDS: ATORVASTATIN 10 MG (LIPITOR) TABLET PO SCH (21:10)
[2018-02-28] MEDS: PREGABALIN 75 MG (LYRICA) CAP PO SCH (21:10)
[2018-02-28] MEDS: ESZOPICLONE 2 MG TAB PO SCH (21:25)
[2018-03-01 00:03] VITALS: BP 126/73
[2018-03-01] MEDS: fentaNYL INJECTION 100 MCG/2 ML AMP IV PRN ×9 (01:36→23:48)
[2018-03-01] MEDS: ACYCLOVIR INJECTION 800 MG in NS (IVPB) 250 ML IV SCH ×3 (04:43→21:47)
[2018-03-01] MEDS: CATHETER FLUSH 10 ML SYR IV SCH ×3 (04:44→21:36)
[2018-03-01 08:00] VITALS: BP 105/78
[2018-03-01] MEDS: DULoxetine 30 MG (CYMBALTA) CAP PO SCH (09:03)
[2018-03-01] MEDS: CELECOXIB 100 MG (CeleBREX) CAP PO SCH ×2 (09:03→21:36)
[2018-03-01] MEDS: VITAMIN D3 5,000 UNITS (CHOLECALCIFEROL ) CAPSULE PO SCH (09:03)
[2018-03-01] MEDS: CAL. POLYCARBOPHIL 625 MG (FIBERCON) TAB PO SCH ×3 (09:03→21:35)
[2018-03-01] MEDS: PREGABALIN 75 MG (LYRICA) CAP PO SCH (09:04)
[2018-03-01] MEDS: hydrOXYzine (VISTARIL) 25 MG CAP PO SCH ×3 (09:04→21:36)
[2018-03-01] MEDS: GABAPENTIN 600 MG (NEURONTIN) TAB PO SCH ×3 (09:04→21:36)
--- NOTE | 2018-03-01 12:12 | NUR ---
PT HAS BEEN EATING WELL, BUT ONLY ATE ONE MEAL PER DAY THE PAST TWO DAYS. WILL CONTINUE TO FOLLOW.
--- NOTE | 2018-03-01 14:25 | Progress Note (SOAP) ---
Subjective Date Seen by a Provider: Mar 01, 2018 Time Seen by a Provider: 14:23 Subjective/Events-last exam Fwup recurrent right facial herpes zoster, neuralgia. Pain is much worse today. Objective Exam Vital Signs Date Time Temp Pulse Resp B/P (MAP) Pulse Ox O2 Delivery O2 Flow Rate FiO2 03/01/18 08:00 97.9 92 16 105/78 (87) 98 Room Air 03/01/18 08:00 Room Air 03/01/18 00:03 98.6 99 20 126/73 (90) 98 Room Air 02/28/18 16:50 99.2 02/28/18 16:00 99.2 105 14 138/91 (107) 95 Room Air I & O 03/01/18 07:00 Intake Total 3576 ml Output Total 2400 ml Balance 1176 ml Capillary Refill : Less Than 3 Seconds General Appearance: No Apparent Distress Neurologic/Psychiatric: Alert, Oriented x3 Skin: Warm/Dry Results Lab Microbiology 02/12/18 Blood Culture - Final, Complete No growth Assessment/Plan Assessment/Plan Assess & Plan/Chief Complaint 1. Recurrent Herpes Zoster of face with neuralgia--continue IV zovirax and go back to tegretol as pain is much worse with change to lyrica, increased gabapentin dose to 600mg po TID yesterday, added celebrex and decreased fentanyl dose Clinical Quality Measures DVT/VTE Risk/Contraindication: Risk Factor Score Per Nursin RFS Level Per Nursing on Admit: 1=Low/No VTE PPX ABELARDO CASE DO Mar 01, 2018 14:25
[2018-03-01 16:00] VITALS: BP 128/93
[2018-03-01] MEDS: carBAMazepine 200 MG (TEGretol) TAB PO NR ×2 (16:11→16:50)
[2018-03-01] MEDS: ATORVASTATIN 10 MG (LIPITOR) TABLET PO SCH (21:35)
[2018-03-01] MEDS: carBAMazepine 200 MG (TEGretol) TAB PO SCH (21:35)
[2018-03-01] MEDS: ESZOPICLONE 2 MG TAB PO SCH (21:47)
[2018-03-01 23:34] VITALS: BP 119/71
[2018-03-02] MEDS: fentaNYL INJECTION 100 MCG/2 ML AMP IV PRN ×10 (02:43→23:51)
[2018-03-02] MEDS: CATHETER FLUSH 10 ML SYR IV SCH ×3 (05:54→21:19)
[2018-03-02] MEDS: ACYCLOVIR INJECTION 800 MG in NS (IVPB) 250 ML IV SCH ×3 (05:54→21:19)
[2018-03-02 08:00] VITALS: BP 123/77
[2018-03-02] MEDS: DULoxetine 30 MG (CYMBALTA) CAP PO SCH (08:09)
[2018-03-02] MEDS: CELECOXIB 100 MG (CeleBREX) CAP PO SCH ×2 (08:10→21:18)
[2018-03-02] MEDS: CAL. POLYCARBOPHIL 625 MG (FIBERCON) TAB PO SCH ×3 (08:10→21:18)
[2018-03-02] MEDS: carBAMazepine 200 MG (TEGretol) TAB PO SCH ×4 (08:10→21:19)
[2018-03-02] MEDS: hydrOXYzine (VISTARIL) 25 MG CAP PO SCH ×3 (08:10→21:18)
[2018-03-02] MEDS: VITAMIN D3 5,000 UNITS (CHOLECALCIFEROL ) CAPSULE PO SCH (08:10)
[2018-03-02] MEDS: GABAPENTIN 600 MG (NEURONTIN) TAB PO SCH ×2 (08:10→13:00)
--- NOTE | 2018-03-02 12:12 | Progress Note-Hospitalist ---
Subjective HPI/CC On Admission Date Seen by Provider: Mar 02, 2018 Time Seen by Provider: 11:15 This is a 47-year-old white female who has remote history of malignant melanoma 2001. 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 This is been a recurrent problem for which she necessitates IV acyclovir to prevent progression to severe cellulitis and intractable pain. She noticed that she started to have some swelling and irritation of the right side of her nose and tingling and burning of the right side of her face and enlargement of the preauricular lymph node with a great deal of tenderness. This actually started about 4 days prior to presentation and she doubled up on her acyclovir to 800 mg for 5 times a day but it is not helped. She now presents with similar complaints and is requiring inpatient hospitalization for IV acyclovir. Subjective/Events-last exam Patient really wants Dr. Sprague consulted I updated her on the fact that he was off for the weekend I told her to ask Dr. Flor regarding the request for a consult Still having neuropathic pain so will increase Tegretol in addition to Neurontin Patient reports that the pain is still present Overall very difficult to manage a long-term issue that is now into the hospital day but the day of the acute condition of the recurrence of the herpes virus Bowels are moving Tried to reassure the patient and will try to increase her pain medication to help support her but she will need to talk to Dr. Flor regarding the consultation with Dr. Sprague Review of Systems General: Fatigue Neurological: Weakness, Numbness Objective Exam Vital Signs Vital Signs Date Time Temp Pulse Resp B/P (MAP) Pulse Ox O2 Delivery O2 Flow Rate FiO2 03/02/18 08:00 97.2 75 18 123/77 (92) 95 Room Air Capillary Refill : Less Than 3 Seconds General Appearance: No Apparent Distress, WD/WN, Chronically ill Respiratory: Chest Non Tender, Lungs Clear, Normal Breath Sounds, No Accessory Muscle Use, No Respiratory Distress Cardiovascular: Regular Rate, Rhythm, No Edema, No Gallop, No JVD, No Murmur, Normal Peripheral Pulses Neurologic/Psychiatric: Alert, Oriented x3, No Motor/Sensory Deficits, Normal Mood/Affect Results/Procedures Lab Patient resulted labs reviewed. Assessment/Plan Assessment and Plan Assess & Plan/Chief Complaint Assessment: Recurrent herpes zoster Neuropathic pain due to herpes zoster History of melanoma stage IV Plan: Increase Tegretol Neurontin increase dose Bowel regimen Fiber twice daily Minimize narc use Diagnosis/Problems Diagnosis/Problems (1) recurrent herpes zoster infection Status: Acute (2) Failure of outpatient treatment Status: Acute (3) neuropathic pain due to above Status: Acute (4) History of melanoma Status: Chronic Clinical Quality Measures DVT/VTE Risk/Contraindication: Risk Factor Score Per Nursin RFS Level Per Nursing on Admit: 1=Low/No VTE PPX JANEY CASTANEDA DO Mar 02, 2018 12:12
[2018-03-02] MEDS: GABAPENTIN 300 MG (NEURONTIN) CAP PO SCH ×2 (13:06→21:18)
--- NOTE | 2018-03-02 15:22 | NUR ---
1300 DOSE NEURONTIN CHANGED FROM 600 MG TO 900 MG WHILE IN PATIENT'S ROOM GIVING HER THE 600 MG DOSE. THIS RN ONLY PULLED ONE 300 MG NEURONTIN INSTEAD OF THE NEWLY ORDERED 900 MG (300 MG NEURONTIN) .
[2018-03-02 16:00] VITALS: BP 113/65
[2018-03-02] MEDS: ATORVASTATIN 10 MG (LIPITOR) TABLET PO SCH (21:18)
[2018-03-02] MEDS: ESZOPICLONE 2 MG TAB PO SCH (21:19)
[2018-03-02 23:11] VITALS: BP 122/69
[2018-03-03] MEDS: fentaNYL INJECTION 100 MCG/2 ML AMP IV PRN ×2 (02:53→06:30)
[2018-03-03] MEDS: ACYCLOVIR INJECTION 800 MG in NS (IVPB) 250 ML IV SCH ×3 (05:24→21:51)
[2018-03-03] MEDS: CATHETER FLUSH 10 ML SYR IV SCH ×3 (05:25→23:10)
[2018-03-03 08:00] VITALS: BP 114/72
[2018-03-03] MEDS: DULoxetine 30 MG (CYMBALTA) CAP PO SCH (08:20)
[2018-03-03] MEDS: CELECOXIB 100 MG (CeleBREX) CAP PO SCH ×2 (08:20→21:51)
[2018-03-03] MEDS: VITAMIN D3 5,000 UNITS (CHOLECALCIFEROL ) CAPSULE PO SCH (08:20)
[2018-03-03] MEDS: CAL. POLYCARBOPHIL 625 MG (FIBERCON) TAB PO SCH ×3 (08:20→21:52)
[2018-03-03] MEDS: hydrOXYzine (VISTARIL) 25 MG CAP PO SCH ×3 (08:21→21:52)
[2018-03-03] MEDS: GABAPENTIN 300 MG (NEURONTIN) CAP PO SCH ×3 (08:21→21:53)
[2018-03-03] MEDS: fentaNYL PATCH 25 MCG (DURAGESIC) TD SCH (08:21)
[2018-03-03] MEDS: carBAMazepine 200 MG (TEGretol) TAB PO SCH ×3 (08:21→21:52)
--- NOTE | 2018-03-03 08:24 | NUR ---
25 mcg Fentanyl patch applied to left shoulder at this time by this RN.
--- NOTE | 2018-03-03 14:57 | Progress Note-Hospitalist ---
Progress Note Progress Notes/Assess & Plan Date Seen 03/03/18 Time Seen by Provider: 14:47 Assessment & Plan The patient is a 47-year-old white female who came in on 02/11, [place]. This is one of many admissions for "recurrent shingles". This has been going on for several years. She receives IV acyclovir as well as pain medicines during one of these attacks. She apparently was receiving fentanyl IV by the clock at 2 hour intervals. The nurses prevailed upon me and this was switched to a fentanyl patch. She reports that now her pain is down from an 8 to a 4 and much more acceptable. She points to several spots on her right cheek which she says are red as well as others on her nose both right and left aspects which are said to be WHITE and constitute her recognition of recurrent shingles. Physical exam: Above-described lesions are not clear to me. There is an area on the right neck consistent with her previous right neck surgery for melanoma and nodes. Lungs are clear to auscultation CV is regular without murmur. Impression: Postherpetic neuralgia. Plan: Continue present measures. JAYLEEN RANGEL MD Mar 03, 2018 14:57
[2018-03-03 16:00] VITALS: BP 129/84
[2018-03-03 17:35] VITALS: BP 116/73
[2018-03-03] MEDS ORDERED: ALPRAZolam 1 MG (XANAX) TAB PO PRN (17:45)
--- NOTE | 2018-03-03 17:55 | NUR ---
DR. RANGEL NOTIFIED OF T. C/O OF " FEELING JITTERY" JN=207 QR=534/73. O2 SAT=98 %ON R/A. CONT. TO HAVE FENTANYL 25 MCG PATCH TO LEFT UPPER ARM. ORDERED XANAX PRN ANXIETY.
[2018-03-03] MEDS ORDERED: ALPRAZolam 1 MG (XANAX) TAB ONE (21:46)
[2018-03-03] MEDS: ATORVASTATIN 10 MG (LIPITOR) TABLET PO SCH (21:53)
[2018-03-03] MEDS: ESZOPICLONE 2 MG TAB PO SCH (23:11)
[2018-03-04 00:15] VITALS: BP 117/66
[2018-03-04] MEDS: ACYCLOVIR INJECTION 800 MG in NS (IVPB) 250 ML IV SCH ×3 (05:32→21:48)
[2018-03-04] MEDS: CATHETER FLUSH 10 ML SYR IV SCH ×3 (05:33→21:56)
[2018-03-04 08:20] VITALS: BP 112/63
[2018-03-04] MEDS: CELECOXIB 100 MG (CeleBREX) CAP PO SCH ×2 (11:32→21:55)
[2018-03-04] MEDS: carBAMazepine 200 MG (TEGretol) TAB PO SCH ×3 (11:32→21:47)
[2018-03-04] MEDS: GABAPENTIN 300 MG (NEURONTIN) CAP PO SCH ×3 (11:33→21:47)
[2018-03-04] MEDS: VITAMIN D3 5,000 UNITS (CHOLECALCIFEROL ) CAPSULE PO SCH (11:35)
[2018-03-04] MEDS: CAL. POLYCARBOPHIL 625 MG (FIBERCON) TAB PO SCH ×3 (11:35→21:55)
[2018-03-04] MEDS: hydrOXYzine (VISTARIL) 25 MG CAP PO SCH ×3 (11:35→21:47)
[2018-03-04] MEDS: DULoxetine 30 MG (CYMBALTA) CAP PO SCH (11:35)
--- NOTE | 2018-03-04 12:44 | Progress Note (SOAP) ---
Subjective Date Seen by a Provider: Mar 04, 2018 Time Seen by a Provider: 12:42 Subjective/Events-last exam Fwup right facial herpetic neuralgia. C/O right parotid area being swollen. Pain is better on fentanyl patch. Objective Exam Vital Signs Date Time Temp Pulse Resp B/P (MAP) Pulse Ox O2 Delivery O2 Flow Rate FiO2 03/04/18 08:20 97.0 79 18 112/63 (79) 94 Room Air 03/04/18 00:15 98.1 99 18 117/66 (83) 95 Room Air 03/03/18 20:00 Room Air 03/03/18 17:35 123 18 116/73 (87) 98 Room Air 03/03/18 16:00 98.1 115 18 129/84 (99) 97 Room Air I & O 03/04/18 06:59 Intake Total 1960 ml Balance 1960 ml Capillary Refill : Less Than 3 Seconds General Appearance: No Apparent Distress Neck: Supple Neurologic/Psychiatric: Alert, Oriented x3 Skin: Normal Color, Warm/Dry (no rashes or lesions) Results Lab Microbiology 02/12/18 Blood Culture - Final, Complete No growth Assessment/Plan Assessment/Plan Assess & Plan/Chief Complaint 1. Recurrent Herpes Zoster of face with neuralgia--continue IV zovirax and tegretol/gabpentin/cymbalta/fentanyl patch, add elavil q HS and doxycycline to cover for bacterial parotitis Clinical Quality Measures DVT/VTE Risk/Contraindication: Risk Factor Score Per Nursin RFS Level Per Nursing on Admit: 1=Low/No VTE PPX ABELARDO CASE DO Mar 04, 2018 12:44
[2018-03-04] MEDS ORDERED: ALPRAZolam 1 MG (XANAX) TAB PO PRN (12:45)
[2018-03-04] MEDS ORDERED: cefTRIAXone FOR IV USE 1,000 MG in NS (IVPB) 50 ML IV NR (12:45)
[2018-03-04 16:00] VITALS: BP 146/91
[2018-03-04] MEDS: DOXYCYCLINE 100 MG (VIBRAMYCIN) TABLET PO SCH (17:28)
[2018-03-04] MEDS ORDERED: AMITRIPTYLINE 25 MG (ELAVIL) TAB PO SCH (21:00)
[2018-03-04] MEDS: ATORVASTATIN 10 MG (LIPITOR) TABLET PO SCH (21:47)
[2018-03-04] MEDS: ESZOPICLONE 2 MG TAB PO SCH (21:48)
[2018-03-05] VITALS: BP 109/62
[2018-03-05] MEDS: CATHETER FLUSH 10 ML SYR IV SCH ×3 (06:19→22:48)
[2018-03-05] MEDS: ACYCLOVIR INJECTION 800 MG in NS (IVPB) 250 ML IV SCH ×3 (06:20→22:48)
[2018-03-05] MEDS: DOXYCYCLINE 100 MG (VIBRAMYCIN) TABLET PO SCH ×2 (06:21→17:14)
[2018-03-05 08:00] VITALS: BP 111/73
[2018-03-05] MEDS: hydrOXYzine (VISTARIL) 25 MG CAP PO SCH ×3 (08:58→20:58)
[2018-03-05] MEDS: GABAPENTIN 300 MG (NEURONTIN) CAP PO SCH (08:58)
[2018-03-05] MEDS: DULoxetine 30 MG (CYMBALTA) CAP PO SCH (08:58)
[2018-03-05] MEDS: CAL. POLYCARBOPHIL 625 MG (FIBERCON) TAB PO SCH ×3 (08:58→20:58)
[2018-03-05] MEDS: CELECOXIB 100 MG (CeleBREX) CAP PO SCH ×2 (08:59→20:58)
[2018-03-05] MEDS: VITAMIN D3 5,000 UNITS (CHOLECALCIFEROL ) CAPSULE PO SCH (08:59)
[2018-03-05] MEDS: carBAMazepine 200 MG (TEGretol) TAB PO SCH ×2 (08:59→20:59)
--- NOTE | 2018-03-05 09:43 | NUR ---
provided prayer and Communion. Pt also mentioned Fr Rojo anointed her this weekend.
--- NOTE | 2018-03-05 12:56 | Progress Note (SOAP) ---
Subjective Date Seen by a Provider: Mar 05, 2018 Time Seen by a Provider: 12:53 Subjective/Events-last exam Fwup right facial herpetic neuralgia. States has no pain but is dizzy. Seems overmedicated with slow tracking today. Objective Exam Vital Signs Date Time Temp Pulse Resp B/P (MAP) Pulse Ox O2 Delivery O2 Flow Rate FiO2 03/05/18 08:00 Room Air 03/05/18 08:00 96.8 75 20 111/73 (86) 95 Room Air 03/05/18 00:00 97.7 87 18 109/62 (78) 99 Room Air 03/04/18 20:00 Room Air 03/04/18 16:00 96.2 97 18 146/91 (109) 98 Room Air I & O 03/05/18 07:00 Intake Total 1160 ml Balance 1160 ml Capillary Refill : Less Than 3 Seconds General Appearance: No Apparent Distress Neck: Supple Neurologic/Psychiatric: Alert, Oriented x3 Skin: Normal Color, Warm/Dry Results Lab Microbiology 02/12/18 Blood Culture - Final, Complete No growth Assessment/Plan Assessment/Plan Assess & Plan/Chief Complaint 1. Recurrent Herpes Zoster of face with neuralgia--continue IV zovirax and tegretol/gabpentin/cymbalta/fentanyl patch and elavil 2. Right Parotitis/Sinusitis--continue rocephin 3. Altered mentation/Dizziness--Check CBC, CMP, Tegretol now Clinical Quality Measures DVT/VTE Risk/Contraindication: Risk Factor Score Per Nursin RFS Level Per Nursing on Admit: 1=Low/No VTE PPX ABELARDO CASE DO Mar 05, 2018 12:56
[2018-03-05 13:42] LABS: BASOPHILS % (AUTO) 0 % (0-10); EOSINOPHILS # (AUTO) 0.2 10^3/uL (0.0-0.3); EOSINOPHILS % (AUTO) 4 % (0-10); HEMATOCRIT 34 % (35-52); HEMOGLOBIN 11.4 G/DL (11.5-16.0); LYMPHOCYTES # (AUTO) 1.2 X 10^3 (1.0-4.0); LYMPHOCYTES % (AUTO) 26 % (12-44); MEAN CORPUSCULAR HEMOGLOBIN 31 PG (25-34); MEAN CORPUSCULAR HGB CONC 33 G/DL (32-36); MEAN CORPUSCULAR VOLUME 94 FL (80-99); MEAN PLATELET VOLUME 8.1 FL (7.4-10.4); MONOCYTES # (AUTO) 0.3 X 10^3 (0.0-1.0); MONOCYTES % (AUTO) 6 % (0-12); NEUTROPHILS # (AUTO) 2.9 X 10^3 (1.8-7.8); NEUTROPHILS % (AUTO) 63 % (42-75); PLATELET COUNT 209 10^3/uL (130-400); RED BLOOD COUNT 3.64 10^6/uL (4.35-5.85); RED CELL DISTRIBUTION WIDTH 13.5 % (10.0-14.5); WHITE BLOOD COUNT 4.6 10^3/uL (4.3-11.0)
[2018-03-05 14:01] LABS: ALANINE AMINOTRANSFERASE 15 U/L (0-55); ALBUMIN 3.5 GM/DL (3.2-4.5); ALKALINE PHOSPHATASE 70 U/L (40-136); BILIRUBIN,TOTAL 0.2 MG/DL (0.1-1.0); BUN/CREATININE RATIO 13; CALCIUM 8.5 MG/DL (8.5-10.1); CARBON DIOXIDE 26 MMOL/L (21-32); CHLORIDE 101 MMOL/L (98-107); CREATININE SERUM 0.85 MG/DL (0.60-1.30); GFR ESTIMATED > 60; GLUCOSE 153 MG/DL (70-105); POTASSIUM 3.7 MMOL/L (3.6-5.0); SODIUM 136 MMOL/L (135-145)
[2018-03-05 14:07] LABS: CARBAMAZEPINE (TEGRETOL) 10.9 UG/ML (4.0-12.0)
[2018-03-05] MEDS: cefTRIAXone FOR IV USE 1,000 MG in NS (IVPB) 50 ML IV SCH (15:03)
[2018-03-05 16:00] VITALS: BP 127/80
[2018-03-05] MEDS: AMITRIPTYLINE 10 MG (ELAVIL) TAB PO SCH (20:57)
[2018-03-05] MEDS: ATORVASTATIN 10 MG (LIPITOR) TABLET PO SCH (20:58)
[2018-03-05] MEDS: GABAPENTIN 600 MG (NEURONTIN) TAB PO SCH (20:59)
[2018-03-05] MEDS: ESZOPICLONE 2 MG TAB PO SCH (20:59)
--- NOTE | 2018-03-05 21:30 | NUR ---
Pharmacy notified about Acyclovir dose schedule at 1400 was given at 1714, 3 hrs later. Pharmacy agreed to give Acyclovir dose at the same time that is schedule at [address] can be on schedule
[2018-03-06 00:17] VITALS: BP 129/75
[2018-03-06] MEDS: ACYCLOVIR INJECTION 800 MG in NS (IVPB) 250 ML IV SCH ×3 (06:32→22:16)
[2018-03-06] MEDS: DOXYCYCLINE 100 MG (VIBRAMYCIN) TABLET PO SCH ×2 (06:33→17:12)
[2018-03-06] MEDS: CATHETER FLUSH 10 ML SYR IV SCH ×2 (06:33→14:51)
[2018-03-06] MEDS ORDERED: PATCH REMOVAL TP SCH (08:00)
[2018-03-06 08:48] VITALS: BP 114/68
[2018-03-06] MEDS: carBAMazepine 200 MG (TEGretol) TAB PO SCH ×3 (10:04→22:16)
[2018-03-06] MEDS: CAL. POLYCARBOPHIL 625 MG (FIBERCON) TAB PO SCH ×3 (10:05→22:25)
[2018-03-06] MEDS: VITAMIN D3 5,000 UNITS (CHOLECALCIFEROL ) CAPSULE PO SCH (10:05)
[2018-03-06] MEDS: CELECOXIB 100 MG (CeleBREX) CAP PO SCH ×2 (10:05→22:17)
[2018-03-06] MEDS: DULoxetine 30 MG (CYMBALTA) CAP PO SCH (10:05)
[2018-03-06] MEDS: hydrOXYzine (VISTARIL) 25 MG CAP PO SCH ×3 (10:06→22:18)
[2018-03-06] MEDS: fentaNYL PATCH 25 MCG (DURAGESIC) TD SCH (10:06)
[2018-03-06] MEDS: GABAPENTIN 600 MG (NEURONTIN) TAB PO SCH ×3 (10:06→22:17)
[2018-03-06] MEDS ORDERED: fentaNYL PATCH 12 MCG (DURAGESIC) TD SCH ×2 (13:45→20:30)
[2018-03-06] MEDS ORDERED: FENTANYL PATCH REMOVAL TP SCH (13:45)
[2018-03-06] MEDS: cefTRIAXone FOR IV USE 1,000 MG in NS (IVPB) 50 ML IV SCH (14:49)
[2018-03-06 16:00] VITALS: BP 131/84
--- NOTE | 2018-03-06 18:00 | NUR ---
New order for decreased dosage fentanyl patch placed on patient--fentanyl 25mcg patch removed and fentanyl 12mcg patch placed, within hour c/o of increased pain, "blisters" forming and burning on face elevated. notified of c/o, new order received to dc 12mcg patch and replace with fentanyl 25mcg patch. 12mcg patch removed and 25mcg patch applied per order.
--- NOTE | 2018-03-06 20:11 | Progress Note (SOAP) ---
Subjective Date Seen by a Provider: Mar 06, 2018 Time Seen by a Provider: 12:55 Subjective/Events-last exam Fwup recurrent shingles of face with postherpetic neuralgia. Still c/o dizziness and thinks it is from the duragesic patch. Reports her pain a zero and is willing to try decreasing the duragesic patch. Objective Exam Vital Signs Date Time Temp Pulse Resp B/P (MAP) Pulse Ox O2 Delivery O2 Flow Rate FiO2 03/06/18 16:00 98.6 99 18 131/84 (100) 97 Room Air 03/06/18 08:48 99.3 84 18 114/68 (83) 98 Room Air 03/06/18 08:00 Room Air 03/06/18 00:17 99.1 86 20 129/75 (93) 95 Room Air I & O 03/06/18 07:00 Intake Total 2175 ml Balance 2175 ml Capillary Refill : Less Than 3 Seconds General Appearance: No Apparent Distress Neurologic/Psychiatric: Alert (but still with slow tracking) Skin: Normal Color, Warm/Dry Results Lab Microbiology 02/12/18 Blood Culture - Final, Complete No growth Assessment/Plan Assessment/Plan Assess & Plan/Chief Complaint 1. Recurrent Herpes Zoster of face with neuralgia--continue IV zovirax and tegretol/gabpentin/cymbalta/elavil but will try decreasing fentanyl patch to 12mcg 2. Right Parotitis/Sinusitis--continue rocephin 3. Altered mentation/Dizziness--decreased tegretol and gabapentin doses slightly but still with dizziness and altered mentation so will try lower dose of fentanyl patch and see how does. Clinical Quality Measures DVT/VTE Risk/Contraindication: Risk Factor Score Per Nursin RFS Level Per Nursing on Admit: 1=Low/No VTE PPX ABELARDO CASE DO Mar 06, 2018 20:11
[2018-03-06] MEDS ORDERED: fentaNYL PATCH 25 MCG (DURAGESIC) TD SCH (20:45)
[2018-03-06] MEDS ORDERED: fentaNYL PATCH 25 MCG (DURAGESIC) ONE (20:52)
[2018-03-06] MEDS: ESZOPICLONE 2 MG TAB PO SCH (21:00)
[2018-03-06] MEDS: ATORVASTATIN 10 MG (LIPITOR) TABLET PO SCH (22:17)
[2018-03-06] MEDS: AMITRIPTYLINE 10 MG (ELAVIL) TAB PO SCH (22:17)
[2018-03-07] VITALS: BP 115/78
[2018-03-07] MEDS: ACYCLOVIR INJECTION 800 MG in NS (IVPB) 250 ML IV SCH ×2 (06:39→13:19)
[2018-03-07] MEDS: DOXYCYCLINE 100 MG (VIBRAMYCIN) TABLET PO SCH (06:39)
[2018-03-07] MEDS: CATHETER FLUSH 10 ML SYR IV SCH ×2 (06:39→14:14)
[2018-03-07 07:43] VITALS: BP 112/69
[2018-03-07] MEDS: carBAMazepine 200 MG (TEGretol) TAB PO SCH ×2 (08:31→13:11)
[2018-03-07] MEDS: DULoxetine 30 MG (CYMBALTA) CAP PO SCH (08:31)
[2018-03-07] MEDS: CELECOXIB 100 MG (CeleBREX) CAP PO SCH (08:31)
[2018-03-07] MEDS: hydrOXYzine (VISTARIL) 25 MG CAP PO SCH ×2 (08:31→13:12)
[2018-03-07] MEDS: CAL. POLYCARBOPHIL 625 MG (FIBERCON) TAB PO SCH ×2 (08:32→13:11)
[2018-03-07] MEDS: GABAPENTIN 600 MG (NEURONTIN) TAB PO SCH ×2 (08:32→13:12)
[2018-03-07] MEDS: VITAMIN D3 5,000 UNITS (CHOLECALCIFEROL ) CAPSULE PO SCH (08:32)
--- NOTE | 2018-03-07 11:16 | NUR ---
Patient does not have any signs of open lesions. Isolation Dc'd I notified Clementine TAYLOR. I also instructed patient and nurse to let me know if she has any new areas open. No other needs at this time.
[2018-03-07] MEDS ORDERED: GABA600T2 PO (13:06)
[2018-03-07] MEDS ORDERED: ACYC800T PO (13:06)
[2018-03-07] MEDS ORDERED: FENT1PAT8 TD (13:06)
[2018-03-07] MEDS ORDERED: CEFD300C3 PO (13:06)
[2018-03-07] MEDS ORDERED: CARB200T6 PO (13:06)
[2018-03-07] MEDS ORDERED: AMIT10TA6 PO (13:06)
--- NOTE | 2018-03-07 13:08 | Discharge Inst-Simple/Standard ---
Discharge Inst-Standard Discharge Medications New, Converted or Re-Newed RX: Transmitted to Pharmacy Patient Instructions/Follow Up Plan of Care/Instructions/FU: Fwup 1 week Activity as Tolerated: Yes Discharge Diet: No Restrictions ABELARDO CASE DO Mar 07, 2018 13:08
[2018-03-07] MEDS: cefTRIAXone FOR IV USE 1,000 MG in NS (IVPB) 50 ML IV SCH (13:12)
[2018-03-07 15:54] VITALS: BP 112/69
--- NOTE | 2018-03-07 19:51 | Discharge Summary ---
Diagnosis/Chief Complaint Date of Admission Feb 12, 2018 at 01:32 Date of Discharge Mar 07, 2018 at 15:55 Discharge Date: Mar 07, 2018 Discharge Diagnosis 1. Recurrent Herpes Zoster of face 2. Postherpetic neuralgia 3. Right Parotitis 4. Acute Sinusitis 5. Dizziness due to medications--improved Discharge Summary Hospital Course Hospital Course This is a 47 year old female with a history of a melanoma to her right neck. She has a history of recurrent shingles to her right face for which she has had prolonged admissions with IV zovirax and adjustment of medications. She was admitted with a flare-up of shingles and pain to her right face. Her hospital stay was prolonged due to ongoing nerve pain. She had to be started on numerous medications for neuralgia including cymbalta, tegretol, neurontin, elavil, celebrex and the doses of these medications had to be escalated for pain control. Despite these high doses of medications for neuralgia, she was still requiring frequent IV fentanyl so she was switched to a fentanyl patch. IV rocephin as well as doxycycline were added to cover for sinusitis and parotitis as a contributing factor to her ongoing pain. Once she was switched to the fentanyl patch and her doses of tegretol and gabapentin were escalated, she had no pain but she was having dizziness and appeared to be slowed with her tracking and responses so the tegretol and gabapentin doses were backed off slightly and a dose reduction of her fentanyl patch was attempted. She did not tolerate the decrease in the fentanyl patch dose but after 24hrs of the the decrease in her tegretol and gabapentin doses she was less dizzy and did not seem as sedated from the medications. She will be sent home on her current medications and followup with me in 1 week. She is instructed not to drive on these medications. Labs Laboratory Tests 03/05/18 13:36: Red Blood Count 3.64L, Hemoglobin 11.4L, Hematocrit 34L, Glucose Level 153H, Total Protein 6.0L Procedures None. Discharge Physical Examination Allergies: Coded Allergies: promethazine (Verified Allergy, Unknown, 04/13/16) vancomycin (Verified Allergy, Unknown, RASH, 09/13/16) reacted to iv vancomycin in cancer center on 01/21 Vitals & I&Os Vital Signs Date Time Temp Pulse Resp B/P (MAP) Pulse Ox O2 Delivery O2 Flow Rate FiO2 1/17/19 15:54 80 20 112/69 96 Room Air 03/07/18 07:43 97.9 General Appearance: Alert, Oriented X3, Cooperative, No Acute Distress Respiratory: Clear to Auscultation Cardiovascular: Regular Rate Skin: No Rashes Neuro: Normal Gait, Normal Speech Psych/Mental Status: Other (still with some slow tracking due to meds) Discharge Home Medications Reviewed and agree with Discharge Medication list on patient's Discharge Instruction sheet Instructions to Patient/Family Please see electronic discharge instructions given to patient. Clinical Quality Measures DVT/VTE Risk/Contraindication: Risk Factor Score Per Nursin RFS Level Per Nursing on Admit: 1=Low/No VTE PPX ABELARDO CASE DO Mar 07, 2018 19:51
[2018-03-09] MEDS ORDERED: FENTANYL PATCH REMOVAL TP SCH (20:45)
== END 2018-03-07 15:55 | disposition home or self-care (01) | DRG 74 ==
LOC: EDUNIT# 23:13 → ER 23:14 → 4TH 02-12 01:32
PROVIDERS: ADMIT Internal Medicine; ATTEND Family Medicine
DX: B02.22 Postherpetic trigeminal neuralgia (principal); L03.211 Cellulitis of face; J34.0 Abscess, furuncle and carbuncle of nose; R59.0 Localized enlarged lymph nodes; I10 Essential (primary) hypertension; E78.00 Pure hypercholesterolemia, unspecified; G43.909 Migraine, unspecified, not intractable, without status migrainosus; K21.9 Gastro-esophageal reflux disease without esophagitis; K58.9 Irritable bowel syndrome, unspecified; M79.7 Fibromyalgia; R13.10 Dysphagia, unspecified; F41.9 Anxiety disorder, unspecified; F32.9 Major depressive disorder, single episode, unspecified; K11.20 Sialoadenitis, unspecified; J01.90 Acute sinusitis, unspecified; R42 Dizziness and giddiness; R41.82 Altered mental status, unspecified; T42.1X5A Adverse effect of iminostilbenes, initial encounter; Z85.820 Personal history of malignant melanoma of skin; Z92.3 Personal history of irradiation
CPT/HCPCS: 36415; 80053; 80156; 83605; 85025; 87040; 96365; 96375

== ENCOUNTER → 2018-04-01 | Outpatient (CLI) | payer BC, MEDICARE ==
[~2018-04-01] MED LIST changes: +ACYC800T PO; +AMIT10TA6 PO; +ATOR10TA66 PO; +CARB200T6 PO; +CHOL5000 PO; +FENT1PAT8 TD; +GBPN600T PO; +OXYB5TAB9 PO; +PSEU30TA35 PO; +[UNRECOGNIZED DRUG - CODE] PO
--- NOTE | 2018-04-01 16:58 | Diagnostic Imaging Report ---
INDICATION: Right wrist pain FINDINGS: Three views of the right wrist show no fracture, dislocation or other acute abnormalities. IMPRESSION: Negative right wrist. Dictated on workstation # [id number]
== END ==
LOC: RAD 16:10
PROVIDERS: ATTEND Nurse Practitioner Family
DX: M25.531 Pain in right wrist (principal)
CPT/HCPCS: 73110

== ENCOUNTER → 2018-04-23 | Outpatient (CLI) | payer BC, MEDICARE ==
--- NOTE | 2018-04-23 16:51 | Diagnostic Imaging Report ---
INDICATION: Pain. Four views were obtained. FINDINGS: The alignment is normal. There is no fracture or dislocation. Soft tissues are unremarkable. IMPRESSION: No acute fracture or dislocation. Dictated by: Dictated on workstation # [id number]
--- NOTE | 2018-04-23 16:51 | Diagnostic Imaging Report ---
INDICATION: Pain. AP, oblique, and lateral views of the right hand are obtained. No fracture or acute bony abnormality is seen. Joint spaces are unremarkable. IMPRESSION: Negative right hand. Dictated by: Dictated on workstation # [id number]
== END ==
LOC: RAD FS 16:03
PROVIDERS: ATTEND Nurse Practitioner
DX: M79.641 Pain in right hand (principal); M25.531 Pain in right wrist
CPT/HCPCS: 73110; 73130

== ENCOUNTER 2018-06-20 09:12 | Outpatient (CLI) | payer BC, MEDICARE ==
[~2018-06-20] VITALS: Ht 162.6 cm; Wt 92.1 kg
[2018-06-20] MEDS ORDERED: ACYC400T PO (16:01)
[2018-06-20] MEDS ORDERED: AMIT25TA9 PO (16:01)
== END 2018-06-20 16:03 | disposition home or self-care (01) ==
LOC: PREOP 09:12
PROVIDERS: ATTEND Surgery
DX: Z01.818 Encounter for other preprocedural examination (principal)

== ENCOUNTER 2018-06-25 09:29 | Day surgery (SDC) | payer BC, MEDICARE ==
[~2018-06-25] VITALS: Ht 162.6 cm; Wt 92.1 kg
[~2018-06-25 09:29] MED LIST changes: +AMIT25TA9 PO
[2018-06-25] MEDS ORDERED: LACTATED RINGERS 1,000 ML IV STA (09:46)
[2018-06-25] MEDS ORDERED: LACTATED RINGERS 1,000 ML IV ONE (09:53)
[2018-06-25] MEDS ORDERED: HURRICAINE EXT TUBE (BENZOCAINE) XX PRN (10:00)
[2018-06-25 11:07] VITALS: BP 111/83
[2018-06-25] MEDS ORDERED: proPOfol 200 MG/20 ML (DIPRIVAN) VIAL IV ONE (11:13)
[2018-06-25] MEDS ORDERED: MIDAZOLAM 5 MG/5 ML (VERSED) VIAL ONE (11:13)
--- NOTE | 2018-06-25 11:21 | Progress Note-Pre Operative ---
Pre-Operative Progress Note H&P Reviewed The H&P was reviewed, patient examined and no changes noted. Date Seen by Provider: June 25, 2018 Time Seen by Provider: 11:20 Date H&P Reviewed: June 25, 2018 Time H&P Reviewed: 11:20 Pre-Operative Diagnosis: dypsphagia, gerd YOMAIRA MCKENZIE DO June 25, 2018 11:20
--- NOTE | 2018-06-25 11:37 | Progress Note-Post Operative ---
Post-Operative Progess Note Surgeon (s)/Mini Bar Attendant (s) Surgeon YOMAIRA MCKENZIE DO Mini Bar Attendant: na Pre-Operative Diagnosis dypsphagia, gerd Post-Operative Diagnosis hiatal hernia, small aramis ulcer, ?small segment nair's Procedure & Operative Findings Date of Procedure 06/25/18 Procedure Performed/Findings egd c biopsies. Anesthesia Type per behavioral technician Estimated Blood Loss Estimated blood loss (mL): none Specimens/Packing Specimens Removed antrum, ge YOMAIRA MCKENZIE DO June 25, 2018 11:37
[2018-06-25] MEDS ORDERED: SUCR1TAB36 PO (11:38)
[2018-06-25] MEDS ORDERED: PANT40TA2 PO (11:38)
--- NOTE | 2018-06-25 11:39 | Discharge Inst-Simple/Standard ---
Discharge Inst-Standard Discharge Medications New, Converted or Re-Newed RX: Transmitted to Pharmacy Patient Instructions/Follow Up Plan of Care/Instructions/FU: 3 weeks [place] Activity as Tolerated: Yes Discharge Diet: Regular Diet YOMAIRA MCKENZIE DO June 25, 2018 11:39
[2018-06-25 12:00] VITALS: BP 121/79
--- NOTE | 2018-06-25 12:12 | Anesthesia-General Post-Op ---
MAC Patient Condition Mental Status/LOC: Same as Preop Cardiovascular: Satisfactory Nausea/Vomiting: Absent Respiratory: Satisfactory Pain: Controlled Complications: Absent Post Op Complications Complications None Follow Up Care/Instructions Patient Instructions None needed. Anesthesiology Discharge Order Discharge Order Patient is doing well, no complaints, stable vital signs, no apparent adverse anesthesia problems. No complications reported per nursing. BRIANNA MASON CRNA June 25, 2018 12:12
[2018-06-25 12:30] VITALS: BP 112/79
[2018-06-25 12:47] VITALS: BP 112/79
--- NOTE | 2018-06-25 19:23 | OPERATIVE REPORT ---
DATE OF SERVICE: 06/25/2018 PREOPERATIVE DIAGNOSES: Dysphagia and gastroesophageal reflux disease. POSTOPERATIVE DIAGNOSES: Hiatal hernia small José Manuel ulcer, questionable small segment Fu's. PROCEDURE: EGD with biopsy. SURGEON: Yomaira Webber DO ANESTHESIA: Per CASE AIDE. ESTIMATED BLOOD LOSS: None. COMPLICATIONS: None. INDICATIONS: The patient 47-year-old female who has been having some dysphagia and reflux symptoms. She understands risks and benefits of procedure and wished to proceed with procedure. Consent was signed in the chart. PROCEDURE: The patient was taken to the endoscopy suite, placed in left lateral recumbent position. Timeout was performed. Scope was inserted in mouth, down the esophagus, stomach and into the duodenum without difficulty. There were no polyps, masses or ulcerations of the duodenum. Scope was slowly retracted back into the stomach where it was further insufflated. A biopsy of the antrum was obtained. There were no polyps, mass or ulcerations. The scope was retroflexed noting a hiatal hernia, no other pathology noted. Scope was returned to its normal position, slowly withdrawn to the distal esophagus, which had a questionable small segment of Fu's and also a small appearance of José Manuel ulcer. Biopsy of the GE junction was obtained. Scope was then slowly retracted back noting no other pathology. The patient tolerated procedure well without complications. She was taken to recovery room in stable condition. RECOMMENDATIONS: The patient started on Protonix 40 mg daily and Carafate 1 gram four times a day. She will follow up in the office in about 3 weeks. If she has any issues before be seen at that time. Further recommendations pending results. Job ID: [id number] DocumentID: [id number] Dictated Date: 06/25/2018 11:46:57 Radiology Specialist Date: 06/25/2018 19:22:37 Dictated By: YOMAIRA WEBBER DO
== END 2018-06-25 12:47 | disposition home or self-care (01) ==
LOC: ENDO 09:29
PROVIDERS: ATTEND Surgery
DX: K21.9 Gastro-esophageal reflux disease without esophagitis (principal); K44.9 Diaphragmatic hernia without obstruction or gangrene; K22.10 Ulcer of esophagus without bleeding; F32.9 Major depressive disorder, single episode, unspecified; B00.9 Herpesviral infection, unspecified; Z87.891 Personal history of nicotine dependence; Z79.899 Other long term (current) drug therapy

== ENCOUNTER 2018-10-09 12:48 | Outpatient (RCR) | payer BC, MEDICARE ==
[2018-07-18 13:27] LABS: BASOPHILS % (AUTO) 0 % (0-10); EOSINOPHILS # (AUTO) 0.2 10^3/uL (0.0-0.3); EOSINOPHILS % (AUTO) 3 % (0-10); HEMATOCRIT 41 % (35-52); HEMOGLOBIN 13.8 G/DL (11.5-16.0); LYMPHOCYTES # (AUTO) 1.2 X 10^3 (1.0-4.0); LYMPHOCYTES % (AUTO) 22 % (12-44); MEAN CORPUSCULAR HEMOGLOBIN 30 PG (25-34); MEAN CORPUSCULAR HGB CONC 34 G/DL (32-36); MEAN CORPUSCULAR VOLUME 89 FL (80-99); MEAN PLATELET VOLUME 8.6 FL (7.4-10.4); MONOCYTES # (AUTO) 0.3 X 10^3 (0.0-1.0); MONOCYTES % (AUTO) 6 % (0-12); NEUTROPHILS # (AUTO) 3.9 X 10^3 (1.8-7.8); NEUTROPHILS % (AUTO) 69 % (42-75); PLATELET COUNT 323 10^3/uL (130-400); RED CELL DISTRIBUTION WIDTH 12.3 % (10.0-14.5); WHITE BLOOD COUNT 5.6 10^3/uL (4.3-11.0)
[2018-07-18 13:47] LABS: ALANINE AMINOTRANSFERASE 34 U/L (0-55); ALBUMIN 4.4 GM/DL (3.2-4.5); ALKALINE PHOSPHATASE 100 U/L (40-136); BILIRUBIN,TOTAL 1.1 MG/DL (0.1-1.0); BUN/CREATININE RATIO 15; CALCIUM 9.6 MG/DL (8.5-10.1); CARBON DIOXIDE 23 MMOL/L (21-32); CHLORIDE 102 MMOL/L (98-107); CREATININE SERUM 0.81 MG/DL (0.60-1.30); GFR ESTIMATED > 60; GLUCOSE 109 MG/DL (70-105); SODIUM 136 MMOL/L (135-145); TOTAL PROTEIN 7.2 GM/DL (6.4-8.2)
[~2018-10-09 12:48] MED LIST changes: -DULO20CA18 PO; +DULO20CA19 PO; -DULO60CA58 PO; +DULO60CA59 PO; +PANT40TA2 PO; +SUCR1TAB36 PO
== END 2018-10-16 | disposition home or self-care (01) ==
LOC: ONC 12:48
PROVIDERS: ATTEND Internal Medicine Hematology & Oncology
DX: Z08 Encounter for follow-up examination after completed treatment for malignant neoplasm (principal); Z85.820 Personal history of malignant melanoma of skin; E55.9 Vitamin D deficiency, unspecified; F17.210 Nicotine dependence, cigarettes, uncomplicated; B00.9 Herpesviral infection, unspecified; G62.9 Polyneuropathy, unspecified; Z79.899 Other long term (current) drug therapy
CPT/HCPCS: 36591; 80053; 82306; 83615; 85025; 96523

== ENCOUNTER 2019-01-14 10:40 | Outpatient (RCR) | payer BC ==
[~2019-01-14 10:40] MED LIST changes: -MECL-106 PO; +MECL-149 PO; +OXYB5TAB13 PO; -OXYB5TAB9 PO; -VALA1000 PO; +VALA10007 PO
[2019-01-14 11:03] LABS: BASOPHILS % (AUTO) 0 % (0-10); EOSINOPHILS # (AUTO) 0.2 10^3/uL (0.0-0.3); EOSINOPHILS % (AUTO) 3 % (0-10); HEMATOCRIT 40 % (35-52); HEMOGLOBIN 13.1 G/DL (11.5-16.0); LYMPHOCYTES # (AUTO) 1.6 X 10^3 (1.0-4.0); LYMPHOCYTES % (AUTO) 24 % (12-44); MEAN CORPUSCULAR HEMOGLOBIN 29 PG (25-34); MEAN CORPUSCULAR HGB CONC 33 G/DL (32-36); MEAN CORPUSCULAR VOLUME 89 FL (80-99); MEAN PLATELET VOLUME 8.5 FL (7.4-10.4); MONOCYTES # (AUTO) 0.5 X 10^3 (0.0-1.0); MONOCYTES % (AUTO) 7 % (0-12); NEUTROPHILS # (AUTO) 4.5 X 10^3 (1.8-7.8); NEUTROPHILS % (AUTO) 66 % (42-75); PLATELET COUNT 275 10^3/uL (130-400); RED CELL DISTRIBUTION WIDTH 12.6 % (10.0-14.5); WHITE BLOOD COUNT 6.8 10^3/uL (4.3-11.0)
[2019-01-14 12:03] LABS: ALBUMIN 4.2 GM/DL (3.2-4.5); BILIRUBIN,TOTAL 0.8 MG/DL (0.1-1.0); CREATININE SERUM 0.99 MG/DL (0.60-1.30); POTASSIUM 3.9 MMOL/L (3.6-5.0); TOTAL PROTEIN 6.8 GM/DL (6.4-8.2)
[2019-01-27] MEDS ORDERED: GABA-488 PO ×2 (08:31)
[2019-01-27] MEDS ORDERED: CHOL50005 PO (08:31)
[2019-01-27] MEDS ORDERED: LEVO500T80 PO (08:31)
[2019-01-27] MEDS ORDERED: SUCR1TAB36 PO (08:35)
[2019-01-27] MEDS ORDERED: PANT40TA2 PO (08:35)
[2019-01-27] MEDS ORDERED: ACYC400T PO (08:36)
[2019-01-27] MEDS ORDERED: OMEG1CAP58 PO (08:37)
[2019-02-21] MEDS ORDERED: OXC5T PO (13:57)
[2019-02-21] MEDS ORDERED: ALPR0.5T7 PO (13:57)
== END 2019-04-14 | disposition home or self-care (01) ==
LOC: ONC 10:40
PROVIDERS: ATTEND Internal Medicine Hematology & Oncology
DX: C96.9 Malignant neoplasm of lymphoid, hematopoietic and related tissue, unspecified (principal); C43.4 Malignant melanoma of scalp and neck; C43.59 Malignant melanoma of other part of trunk; E55.9 Vitamin D deficiency, unspecified; M62.89 Other specified disorders of muscle; B00.89 Other herpesviral infection; I89.0 Lymphedema, not elsewhere classified; R25.3 Fasciculation; Z79.899 Other long term (current) drug therapy; Z98.890 Other specified postprocedural states
CPT/HCPCS: 36591; 80053; 82306; 83615; 85025

== ENCOUNTER 2019-01-24 14:21 | Inpatient (IN) | payer BC ==
[~2019-01-24] VITALS: Ht 162.6 cm; Wt 101.2 kg
[~2019-01-24 14:21] MED LIST changes: +MECL-106 PO; -MECL-149 PO; -OXYB5TAB13 PO; +OXYB5TAB9 PO; +VALA1000 PO; -VALA10007 PO
[2019-01-24] MEDS ORDERED: ACYCLOVIR INJECTION 500 MG in NS (IVPB) 100 ML IV SCH (15:15)
--- NOTE | 2019-01-24 15:15 | ED EENT ---
History of Present Illness General Chief Complaint: Facial Problems Stated Complaint: FACIAL SWELLING Nursing Triage Note: PATIENT HERE TO BE ADMITTED FOR FACIAL SWELLING. SHE HAS SHINGLES AND NO LYMPH NODES ON THIS SIDE OF HER FACE. Source: patient Exam Limitations: no limitations History of Present Illness Date Seen by Provider: Jan 24, 2019 Time Seen by Provider: 15:13 Initial Comments To ER with reports of shingles to the right side of her face. She states that she has a history of melanoma with subsequent right radical neck dissection in 2001, she's had a recurrence of shingles to the side of her face, she is on prophylactic acyclovir 400 mg twice a day but when she feels a bout of pain coming on she increases that 5 times a day. She's been doing that for the past 3 days but denies improvement. There is no rash, no fever no chills. She states Dr. Sprague told her to come to ER. Timing/Duration: abrupt Severity: moderate Location: facial Prearrival Treatment: no prearrival treatment Associated Symptoms: denies symptoms Allergies and Home Medications Allergies Coded Allergies: promethazine (Verified Allergy, Unknown, 04/13/16) vancomycin (Verified Allergy, Unknown, RASH, 09/13/16) reacted to iv vancomycin in cancer center on 01/21 Home Medications Acyclovir 400 Mg Tablet, 400 MG PO BID, (Reported) Amitriptyline HCl 25 Mg Tablet, 25 MG PO HS, (Reported) Atorvastatin Calcium 10 Mg Tablet, 10 MG PO HS, (Reported) Cholecalciferol (Vitamin D3) 5,000 Unit Capsule, 5,000 UNIT PO DAILY, (Reported) Duloxetine HCl 60 Mg Capsule.dr, 60 MG PO DAILY, (Reported) Oxybutynin Chloride 5 Mg Tablet, 5 MG PO HS, (Reported) Pantoprazole Sodium 40 Mg Tablet.dr, 40 MG PO DAILY Prescribed by: YOMAIRA MCKENZIE on 06/25/18 1138 Sucralfate 1 Gm Tablet, 1 GM PO QID Prescribed by: YOMAIRA MCKENZIE on 06/25/18 1138 Patient Home Medication List Home Medication List Reviewed: Yes Review of Systems Review of Systems Constitutional: see HPI; No chills Eyes: No Symptoms Reported Ears: No Symptoms Reported Nose: no symptoms reported Mouth: no symptoms reported Throat: no symptoms reported Respiratory: no symptoms reported Cardiovascular: no symptoms reported Musculoskeletal: no symptoms reported Past Exobtma-Fluqeh-Qcxenm Hx Patient Social History Alcohol Use: Denies Use Recreational Drug Use: No Smoking Status: Never a Smoker 2nd Hand Smoke Exposure: No Recent Foreign Travel: No Contact w/Someone Who Travel: No Recent Infectious Disease Expo: No Recent Hopitalizations: No Immunizations Up To Date Tetanus Booster (TDap): Unknown PED Vaccines UTD: Yes Seasonal Allergies Seasonal Allergies: No Past Medical History Surgeries: Yes (R radical neckectomy, port, sinus sx, c/s x2) Abdominal, Bladder Surgery, Section, Gallbladder, Hysterectomy Respiratory: No Currently Using CPAP: No Currently Using BIPAP: No Cardiac: Yes High Cholesterol, Hypertension Neurological: Yes Headaches /Migraines Reproductive Disorders: Yes (Surgeries for Ovarian cysts) Female Reproductive Disorders: Endometriosis, 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 Sexually Transmitted Disease: No HIV/AIDS: No Genitourinary: Yes UTI-Chronic Gastrointestinal: Yes (severe dry mouth and throat r/t radiation) Gastroesophageal Reflux, Esophagitis, Gall Bladder Disease, Irritable Bowel Musculoskeletal: Yes Fibromyalgia Endocrine: No HEENT: Yes Dysphagia Loss of Vision: Denies Hearing Impairment: Denies Cancer: Yes Melanoma Did You Recieve Any Treatments: Yes What Type of Treatment Did You: Chemotherapy, Radiation, Surgical Intervention Psychosocial: Yes Anxiety, Depression Integumentary: Yes Recent Skin Changes, Herpes Blood Disorders: No Adverse Reaction/Blood Tranf: No Family Medical History Arthritis 19 MOTHER G8 SISTER Cataracts 19 MOTHER Congenital heart disease 19 FATHER (HEART DZ) Diabetes mellitus 19 FATHER Hypertension 19 FATHER Myocardial infarction 19 FATHER Respiratory disorder 19 FATHER (EMPHYSEMA) Seizure disorder G8 BROTHER (CEBERAL PALSY ALOS) No Pertinent Family Hx Physical Exam Vital Signs Vital Signs - First Documented 01/24/19 14:27 Temp 36.8 Pulse 93 Resp 18 B/P (MAP) 116/87 (97) Pulse Ox 97 Height, Weight, BMI Height: 5'4.00" Weight: 203lbs. 0.0oz. [id number]; 36.00 BMI Method:Actual General Appearance: WD/WN, no apparent distress Eyes: bilateral eye normal inspection, bilateral eye PERRL, bilateral eye EOMI Ears: bilateral ear auricle normal, bilateral ear canal normal, bilateral ear TM normal Nose: normal inspection, active bleeding Mouth/Throat: other (there is no rash vesicle or erythema to the right side of the face, it is tender to touch however.) Gastrointestinal: normal bowel sounds, non tender Neurologic/Psychiatric: alert, normal mood/affect, oriented x 3 Skin: normal color, warm/dry Progress/Results/Core Measures Results/Orders My Orders Orders - JOHN SHEN APRN Cbc With Automated Diff (01/24/19 15:08) Hs C Reactive Protein (01/24/19 15:08) Comprehensive Metabolic Panel (01/24/19 15:08) Ed Iv/Invasive Line Start (01/24/19 15:08) Acyclovir Injection (Zovirax Injection) (01/24/19 15:15) Vital Signs/I&O 01/24/19 14:27 Temp 36.8 Pulse 93 Resp 18 B/P (MAP) 116/87 (97) Pulse Ox 97 Blood Pressure Mean: 97 POS Departure Communication (Admissions) I did speak with Dr. Sprague who states this is not a herpes zoster lesion but may be herpes simplex. Impression Primary Impression: Trigeminal neuralgia of right side of face Disposition: 01 HOME, SELF-CARE Condition: Stable Departure-Patient Inst. Referrals: ABELARDO CASE DO (PCP/Family) Primary Care Physician JOHN SHEN APRN Jan 24, 2019 15:15 POS
--- NOTE | 2019-01-24 16:10 | NUR ---
REPORT TAKEN AT THIS TIME FROM Saray SHEN NP IN THE EMERGENCY DEPARTMENT.
[2019-01-24 16:15] LABS: BASOPHILS % (AUTO) 0 % (0-10); EOSINOPHILS # (AUTO) 0.2 10^3/uL (0.0-0.3); EOSINOPHILS % (AUTO) 4 % (0-10); HEMATOCRIT 39 % (35-52); LYMPHOCYTES # (AUTO) 1.9 X 10^3 (1.0-4.0); LYMPHOCYTES % (AUTO) 32 % (12-44); MEAN CORPUSCULAR HEMOGLOBIN 30 PG (25-34); MEAN CORPUSCULAR HGB CONC 34 G/DL (32-36); MEAN CORPUSCULAR VOLUME 89 FL (80-99); MEAN PLATELET VOLUME 8.3 FL (7.4-10.4); MONOCYTES # (AUTO) 0.4 X 10^3 (0.0-1.0); MONOCYTES % (AUTO) 7 % (0-12); NEUTROPHILS # (AUTO) 3.5 X 10^3 (1.8-7.8); NEUTROPHILS % (AUTO) 58 % (42-75); PLATELET COUNT 318 10^3/uL (130-400); RED CELL DISTRIBUTION WIDTH 12.6 % (10.0-14.5); WHITE BLOOD COUNT 6.1 10^3/uL (4.3-11.0)
[2019-01-24] MEDS ORDERED: HYDROcodone/APAP 5 MG/325 MG (LORTAB) TAB ONE (16:27)
[2019-01-24] MEDS ORDERED: HYDROcodone/APAP 5 MG/325 MG (LORTAB) TAB PO ONE (16:30)
[2019-01-24 16:35] LABS: ALANINE AMINOTRANSFERASE 21 U/L (0-55); ALBUMIN 4.1 GM/DL (3.2-4.5); ALKALINE PHOSPHATASE 80 U/L (40-136); BILIRUBIN,TOTAL 0.4 MG/DL (0.1-1.0); BUN/CREATININE RATIO 13; CARBON DIOXIDE 21 MMOL/L (21-32); CHLORIDE 104 MMOL/L (98-107); GFR ESTIMATED > 60; GLUCOSE 93 MG/DL (70-105); SODIUM 137 MMOL/L (135-145); TOTAL PROTEIN 6.6 GM/DL (6.4-8.2)
--- NOTE | 2019-01-24 16:55 | NUR ---
PATIENT TO FLOOR AT THIS TIME, VIA W/C ACCOMPANIED BY VIA [facility] ER STAFF.
--- NOTE | 2019-01-24 17:00 | NUR ---
JAGDEEP BARRERA admitted to room 428-1, with an admitting diagnosis of RIGHT FACIAL HERPES INFECTION, RIGHT TRIGEMINAL NEURALGIA, on 01/24/19 from [facility] , accompanied by ED STAFF.JAGDEEP BARRERA introduced to surroundings, call light, bed controls, phone, TV, temperature control, lights, meal times, smoking policy, visitor policy, side rail policy, bathrooms and showers. Patient Rights given to patient in the handbook. JAGDEEP BARRERA verbalizes understanding that [facility] is not responsible for the loss or damage to any personal effects or valuables that are kept in the patients posession during their hospitalization. JAGDEEP BARRERA verbalizes understanding of Interdisciplinary Patient Education. Patient and/or family were informed about the Rapid Response Team and its purpose.
[2019-01-24 17:02] VITALS: BP 137/76
[2019-01-24] MEDS ORDERED: CATHETER FLUSH 10 ML SYR IV PRN (17:45)
[2019-01-24 18:01] VITALS: BP 137/76
[2019-01-24] MEDS: fentaNYL INJECTION 100 MCG/2 ML AMP IVP PRN (18:32)
[2019-01-24 20:19] VITALS: BP 125/77
[2019-01-24] MEDS: ACYCLOVIR INJECTION 500 MG in NS (IVPB) 100 ML IV SCH (21:29)
[2019-01-24] MEDS: CATHETER FLUSH 10 ML SYR IV SCH (21:30)
[2019-01-24] MEDS: HYDROcodone/APAP 5 MG/325 MG (LORTAB) TAB PO PRN (22:42)
[2019-01-25] VITALS (7 sets, daily range): BP systolic 101–115; BP diastolic 71–78
[2019-01-25] MEDS: HYDROcodone/APAP 5 MG/325 MG (LORTAB) TAB PO PRN ×3 (06:55→21:27)
[2019-01-25] MEDS: CATHETER FLUSH 10 ML SYR IV SCH ×3 (06:55→21:28)
[2019-01-25] MEDS: ACYCLOVIR INJECTION 500 MG in NS (IVPB) 100 ML IV SCH ×3 (06:55→21:27)
--- NOTE | 2019-01-25 08:08 | NUR ---
prior to a.m. medications pulse was 85 bpm and b/p was 115/78.
--- NOTE | 2019-01-25 09:30 | History & Physical-Hospitalist ---
History of Present Illness HPI/Chief Complaint Patient is a 48-year-old female with a past medical history of melanoma with unknown primary status post radical neck dissection with recurrence in 2001 and now is in remission who was admitted recurrent herpes zoster of right face. She reports she has had this over 20 times and can tell when she is getting a flare. Her last hospitalization was on and she was hospitalized for 24 days due to this. She takes daily suppressive antivirals but despite this had an acute recurrence. She believes this was brought on by a cold she is having currently. Source: patient Date Seen 01/25/19 Time Seen by a Provider: 10:30 Attending Physician Magui Recinos MD PCP No,Local Physician Referring Physician Date of Admission Jan 24, 2019 at 15:26 Home Medications & Allergies Home Medications Reviewed patient Home Medication Reconciliation performed by pharmacy medication reconciliations testing and regulating technician and/or nursing. Patients Allergies have been reviewed. Allergies Allergies Coded Allergies promethazine (Verified Allergy, Unknown, 04/13/16) vancomycin (Verified Allergy, Unknown, RASH, 09/13/16) reacted to iv vancomycin in cancer center on 01/21 Past Seyzqwm-Amvrol-Fbsopk Hx Past Med/Social Hx: Reviewed Nursing Past Med/Soc Hx Patient Social History Alcohol Use: Denies Use Recreational Drug Use: No Smoking Status: Never a Smoker 2nd Hand Smoke Exposure: No Recent Foreign Travel: No Contact w/other who traveled: No Recent Hopitalizations: No Recent Infectious Disease Expo: No Immunizations Up To Date Tetanus Booster (TDap): Unknown Pediatric: Yes Seasonal Allergies Seasonal Allergies: No Past Medical History Surgeries: Abdominal, Bladder Surgery, Section, Gallbladder, Hysterectomy Currently Using CPAP: No Currently Using BIPAP: No Cardiac: High Cholesterol, Hypertension Neurological: Headaches /Migraines Reproductive: Yes (Surgeries for Ovarian cysts) Sexually Transmitted Disease: No HIV/AIDS: No Female Reproductive Disorders: Endometriosis, Ovarian Cyst Hysterectomy Genitourinary: UTI-Chronic Gastrointestinal: Gastroesophageal Reflux, Esophagitis, Gall Bladder Disease, Irritable Bowel Musculoskeletal: Fibromyalgia HEENT: Dysphagia Loss of Vision: Denies Hearing Impairment: Denies Cancer: Melanoma Did You Recieve Any Treatments: Yes What Type of Treatment Did You: Chemotherapy, Radiation, Surgical Intervention Psychosocial: Anxiety, Depression Skin/Integumentary: Recent Skin Changes, Herpes History of Blood Disorders: No Adverse Reaction to Blood [place]: No Family History Arthritis 19 MOTHER G8 SISTER Cataracts 19 MOTHER Congenital heart disease 19 FATHER (HEART DZ) Diabetes mellitus 19 FATHER Hypertension 19 FATHER Myocardial infarction 19 FATHER Respiratory disorder 19 FATHER (EMPHYSEMA) Seizure disorder G8 BROTHER (CEBERAL PALSY ALOS) No Pertinent Family Hx Review of Systems Constitutional: No chills, No fever EENTM: see HPI, nose congestion Respiratory: cough Cardiovascular: no symptoms reported Gastrointestinal: no symptoms reported Genitourinary: no symptoms reported Musculoskeletal: no symptoms reported Skin: no symptoms reported Psychiatric/Neurological: No Symptoms Reported Physical Exam Physical Exam Vital Signs Vital Signs - First Documented 01/24/19 01/24/19 14:27 17:02 Temp 36.8 Pulse 93 Resp 18 B/P (MAP) 116/87 (97) Pulse Ox 97 O2 Delivery Room Air Capillary Refill : Less Than 3 Seconds Height, Weight, BMI Height: 5'4.00" Weight: 203lbs. 0.0oz. 92.345082lr; 36.61 BMI Method:Actual General Appearance: No Apparent Distress, WD/WN HEENT: PERRL/EOMI, Moist Mucous Membranes, Other (no visible lesions on face) Neck: Other (s/p radical neckdissection with scarring) Respiratory: Lungs Clear, No Respiratory Distress Cardiovascular: Regular Rate, Rhythm, No Murmur Gastrointestinal: Normal Bowel Sounds, Non Tender, Soft Neurologic/Psychiatric: Alert, Oriented x3; No Aphasia, No Facial Droop Skin: Normal Color, Warm/Dry Results Results/Procedures Labs Laboratory Tests 01/24/19 16:04 Patient resulted labs reviewed. Assessment/Plan Admission Diagnosis Recurrent herpes zoster of face Admission Status: Inpatient Order (span 2 midnights) Reason for Inpatient Admission: Failed outpatient suppressive management, needs at least two midnights of IV abx Assessment and Plan Recurrent Herpes Zoster of face Postherpetic neuralgia Will continue acyclovir Add fentanyl patch for pain Continue gabapentin and hydrocodone Acute Sinusitis Continue previously started abx h/o melanoma in remission follows with Dr Griffith, will consult for Sunday Clinical Quality Measures DVT/VTE Risk/Contraindication: Risk Factor Score Per Nursin RFS Level Per Nursing on Admit: 1=Low/No VTE PPX MAGUI RECINOS MD Jan 25, 2019 09:30 POS
[2019-01-25] MEDS ORDERED: GABAPENTIN 300 MG (NEURONTIN) CAP PO ONE (09:45)
[2019-01-25] MEDS ORDERED: PANTOPRAZOLE 40 MG (PROTONIX) TAB PO NR (09:45)
[2019-01-25] MEDS: fentaNYL PATCH 12 MCG (DURAGESIC) TD SCH (09:52)
[2019-01-25] MEDS: fentaNYL INJECTION 100 MCG/2 ML AMP IVP PRN ×4 (09:53→22:51)
[2019-01-25] MEDS: DULoxetine 30 MG (CYMBALTA) CAP PO SCH (10:37)
[2019-01-25] MEDS: LEVOFLOXACIN 500 MG TAB (LEVAQUIN) PO SCH (10:37)
[2019-01-25] MEDS ORDERED: GABAPENTIN 600 MG (NEURONTIN) TAB PO ONE (21:00)
[2019-01-25] MEDS: AMITRIPTYLINE 25 MG (ELAVIL) TAB PO SCH (21:27)
[2019-01-26] MEDS: ACYCLOVIR INJECTION 500 MG in NS (IVPB) 100 ML IV SCH (06:50)
[2019-01-26] MEDS: CATHETER FLUSH 10 ML SYR IV SCH ×3 (06:50→21:35)
[2019-01-26] MEDS: HYDROcodone/APAP 5 MG/325 MG (LORTAB) TAB PO PRN (06:51)
[2019-01-26 08:00] VITALS: BP 105/72
[2019-01-26] MEDS: PANTOPRAZOLE 40 MG (PROTONIX) TAB PO SCH (08:19)
[2019-01-26] MEDS: DULoxetine 30 MG (CYMBALTA) CAP PO SCH (08:19)
[2019-01-26] MEDS: fentaNYL INJECTION 100 MCG/2 ML AMP IVP PRN (10:59)
[2019-01-26] MEDS: LEVOFLOXACIN 500 MG TAB (LEVAQUIN) PO SCH (10:59)
[2019-01-26 12:00] VITALS: BP 105/72
[2019-01-26] MEDS: VALACYCLOVIR 500 MG TAB (VALTREX) PO SCH ×2 (12:12→21:34)
--- NOTE | 2019-01-26 12:21 | Progress Note - Hospitalist ---
Subjective HPI/CC On Admission Date Seen by Provider: Jan 26, 2019 Time Seen by Provider: 10:15 Patient is a 48-year-old female with a past medical history of melanoma with unknown primary status post radical neck dissection with recurrence in 2001 and now is in remission who was admitted recurrent herpes z renan of right face. She reports she has had this over 20 times and can tell when she is getting a flare Subjective/Events-last exam She reports pain and tingling on the left side of her face. She does not have any rash. She denies fevers and chills. Objective Exam Vital Signs Vital Signs Date Time Temp Pulse Resp B/P (MAP) Pulse Ox O2 Delivery O2 Flow Rate FiO2 01/26/19 12:00 36.8 96 18 105/72 (83) 97 Room Air Capillary Refill : Less Than 3 Seconds General Appearance: No Apparent Distress, Obese HEENT: PERRL/EOMI, Pharynx Normal Neck: Lymphadenopathy (R) (preauricular), Tender Lateral, Other (right sided p ostsurgical changes) Respiratory: Lungs Clear, Normal Breath Sounds, No Respiratory Distress Cardiovascular: Regular Rate, Rhythm, No Edema, No Murmur Gastrointestinal: Normal Bowel Sounds, Non Tender, Soft Extremity: Normal Inspection, Non Tender, No Pedal Edema Neurologic/Psychiatric: Alert, Oriented x3, No Motor/Sensory Deficits, Normal Mood/Affect Skin: Normal Color, Warm/Dry, Other (no rash on face) Results/Procedures Lab Patient resulted labs reviewed. Assessment/Plan Assessment and Plan Assess & Plan/Chief Complaint Possible herpes zoster infection Postherpetic neuralgia Stop Acyclovir Transition to Valacyclovir Discontinue IV fentanyl Continue tylenol and oxycodone for pain Acute Sinusitis Continue previously started abx h/o melanoma in remission follows with Dr Griffith, will consult for Sunday Clinical Quality Measures DVT/VTE Risk/Contraindication: Risk Factor Score Per Nursin RFS Level Per Nursing on Admit: 1=Low/No VTE PPX YARON ROWLAND MD Jan 26, 2019 12:20 POS
[2019-01-26] MEDS ORDERED: ACETAMINOPHEN 325 MG TABLET PO PRN (12:30)
[2019-01-26 15:50] VITALS: BP 105/78
[2019-01-26 20:02] VITALS: BP 123/80
[2019-01-26] MEDS: AMITRIPTYLINE 25 MG (ELAVIL) TAB PO SCH (21:34)
[2019-01-27] VITALS (7 sets, daily range): BP systolic 107–132; BP diastolic 42–81
[2019-01-27] MEDS: CATHETER FLUSH 10 ML SYR IV SCH ×3 (05:14→20:56)
[2019-01-27] MEDS: VALACYCLOVIR 500 MG TAB (VALTREX) PO SCH (08:19)
[2019-01-27] MEDS: PANTOPRAZOLE 40 MG (PROTONIX) TAB PO SCH (08:19)
[2019-01-27] MEDS: DULoxetine 30 MG (CYMBALTA) CAP PO SCH (08:19)
[2019-01-27] MEDS ORDERED: GABA-488 PO ×2 (08:31)
[2019-01-27] MEDS ORDERED: CHOL50005 PO (08:31)
[2019-01-27] MEDS ORDERED: LEVO500T80 PO (08:31)
[2019-01-27] MEDS ORDERED: SUCR1TAB36 PO (08:35)
[2019-01-27] MEDS ORDERED: PANT40TA2 PO (08:35)
[2019-01-27] MEDS ORDERED: ACYC400T PO (08:36)
[2019-01-27] MEDS ORDERED: OMEG1CAP58 PO (08:37)
--- NOTE | 2019-01-27 09:59 | NUR ---
SPOKE WITH PT AND WENT THRU THE EXT MED HISTORY TO COMPLETE THE MED REC. PT WAS ABLE TO TELL ME HOW/WHEN SHE TAKES HER MEDS. ACYCLOVIR: SHE TAKES THIS BID EVERY DAY- BUT IF SHE FEELS A SHINGLES OUTBREAK COMING ON SHE THEN TAKES IT 5X DAILY. GABAPENTIN: SHE ALWAYS TAKES 2 CAPS AT BEDTIME, AND OCCASIONALLY TAKE 1 CAP AM PRN. SHE PICKED UP A PRESCRIPTION OF DOXEPIN BUT HAS NOT STARTED TAKING(SHE HAD TAKEN AMITRIPTYLINE BUT THEY CHANGED IT TO DOXEPIN BC IT WAS NOT WORKING) FOR THIS REASON I LEFT IT OFF THE MED REC
[2019-01-27] MEDS ORDERED: GABAPENTIN 300 MG (NEURONTIN) CAP PO ONE (10:15)
[2019-01-27] MEDS: GABAPENTIN 300 MG (NEURONTIN) CAP PO SCH ×2 (11:05→20:56)
[2019-01-27] MEDS: fentaNYL INJECTION 100 MCG/2 ML AMP IVP PRN ×4 (11:08→21:04)
[2019-01-27] MEDS: LEVOFLOXACIN 500 MG TAB (LEVAQUIN) PO SCH (11:12)
[2019-01-27] MEDS: ACYCLOVIR INJECTION 500 MG in NS (IVPB) 100 ML IV SCH ×2 (14:09→22:07)
--- NOTE | 2019-01-27 16:40 | NUR ---
[facility] Provided.
--- NOTE | 2019-01-27 18:33 | Progress Note ---
Standard Progress Note Progress Notes/Assess & Plan Date Seen by a Provider: Jan 27, 2019 Time Seen by a Provider: 18:19 Progress/Assessment & Plan 48-year-old female admitted with recurrence of herpetic neuralgia involving the right side of face on 01/24/2019. Last flare was in January 2018 requiring hospitalization. She has history of stage III malignant melanoma involving the right cervical lymph nodes and underwent right radical neck dissection followed by radiation therapy at [facility] [place]. She received adjuvant interferon therapy for 1 year completing all treatments by 2003. 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 Past few years she has had flareup of herpes infection involving right side of face causing significant pain. She was evaluated at [facility] with a right cheek biopsy in 2010 with diagnosis of herpes incognito. Unable to do PCR for HSV and VZV because of inadequate tissue. She has responded to flareups with IV acyclovir in the past. She was switched to valacyclovir yesterday with worsening pain and was noted with a rash this morning. Dr. Nguyễn did not feel comfortable continuing treatment with IV acyclovir and patient was transferred to my service. We will continue IV acyclovir 400 mg every 8 hours along with gabapentin 300 mg twice a day. Continue fentanyl 25 g as needed for pain control. Pharmacy notified me of nationwide shortage of IV acyclovir and we will try to manage the available doses judiciously. By this evening the right sided facial lesions have become less inflamed but more lesions have appeared along the right upper lip. Continue to monitor closely. MARYSE VIVAS Jan 27, 2019 18:33 POS
[2019-01-27] MEDS: AMITRIPTYLINE 25 MG (ELAVIL) TAB PO SCH (20:56)
[2019-01-28 00:59] VITALS: BP 119/70
[2019-01-28] MEDS: ACYCLOVIR INJECTION 500 MG in NS (IVPB) 100 ML IV SCH ×3 (05:34→21:34)
[2019-01-28] MEDS: CATHETER FLUSH 10 ML SYR IV SCH ×3 (06:02→20:25)
[2019-01-28 07:45] VITALS: BP 113/80
[2019-01-28] MEDS: fentaNYL PATCH 12 MCG (DURAGESIC) TD SCH (08:34)
[2019-01-28] MEDS: FENTANYL PATCH REMOVAL TP SCH (08:34)
[2019-01-28] MEDS: DULoxetine 30 MG (CYMBALTA) CAP PO SCH (08:35)
[2019-01-28] MEDS: PANTOPRAZOLE 40 MG (PROTONIX) TAB PO SCH (08:35)
[2019-01-28] MEDS: GABAPENTIN 300 MG (NEURONTIN) CAP PO SCH ×2 (08:35→20:25)
[2019-01-28] MEDS: fentaNYL INJECTION 100 MCG/2 ML AMP IVP PRN ×3 (08:38→20:25)
[2019-01-28] MEDS: LEVOFLOXACIN 500 MG TAB (LEVAQUIN) PO SCH (14:45)
[2019-01-28] MEDS: DOCUSATE SODIUM 100 MG (COLACE) CAP PO SCH ×2 (14:45→20:25)
[2019-01-28 16:39] VITALS: BP 108/72
--- NOTE | 2019-01-28 17:29 | Progress Note ---
Standard Progress Note Progress Notes/Assess & Plan Date Seen by a Provider: Jan 28, 2019 Time Seen by a Provider: 17:25 Progress/Assessment & Plan 48-year-old female admitted with recurrence of herpetic neuralgia involving the right side of face on 01/24/2019. Last flare was in January 2018 requiring hospitalization. She has history of stage III malignant melanoma involving the right cervical lymph nodes and underwent right radical neck dissection followed by radiation therapy at [facility] [place]. She received adjuvant interferon therapy for 1 year completing all treatments by 2003. 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 Past few years she has had flareup of herpes infection involving right side of face causing significant pain. She was evaluated at [facility] with a right cheek biopsy in 2010 with diagnosis of herpes incognito. Unable to do PCR for HSV and VZV because of inadequate tissue. She has responded to flareups with IV acyclovir in the past. We will continue IV acyclovir 500 mg every 8 hours. Continue fentanyl 25 g as needed for pain control. Still has a few small lesions that is visible but no new lesions on the right side of the face. Pain controlled well and using fentanyl as needed. Complained of tingling on her upper lip and nose. Continue gabapentin 300 mg twice a day. Repeat lab work in a.m. Continue to monitor closely. MARYSE VIVAS Jan 28, 2019 17:29 POS
[2019-01-28] MEDS: AMITRIPTYLINE 25 MG (ELAVIL) TAB PO SCH (20:25)
[2019-01-29 00:30] VITALS: BP 123/77
[2019-01-29] MEDS: fentaNYL INJECTION 100 MCG/2 ML AMP IVP PRN ×7 (02:09→23:45)
[2019-01-29 04:45] VITALS: BP 113/70
[2019-01-29] MEDS: ACYCLOVIR INJECTION 500 MG in NS (IVPB) 100 ML IV SCH ×3 (05:53→21:21)
[2019-01-29] MEDS: CATHETER FLUSH 10 ML SYR IV SCH ×3 (05:53→21:22)
[2019-01-29 06:17] LABS: BASOPHILS % (AUTO) 0 % (0-10); EOSINOPHILS # (AUTO) 0.3 10^3/uL (0.0-0.3); EOSINOPHILS % (AUTO) 5 % (0-10); HEMATOCRIT 36 % (35-52); HEMOGLOBIN 12.2 G/DL (11.5-16.0); LYMPHOCYTES # (AUTO) 1.9 X 10^3 (1.0-4.0); LYMPHOCYTES % (AUTO) 35 % (12-44); MEAN CORPUSCULAR HEMOGLOBIN 30 PG (25-34); MEAN CORPUSCULAR HGB CONC 34 G/DL (32-36); MEAN CORPUSCULAR VOLUME 89 FL (80-99); MEAN PLATELET VOLUME 8.1 FL (7.4-10.4); MONOCYTES # (AUTO) 0.4 X 10^3 (0.0-1.0); MONOCYTES % (AUTO) 7 % (0-12); NEUTROPHILS # (AUTO) 2.9 X 10^3 (1.8-7.8); NEUTROPHILS % (AUTO) 52 % (42-75); PLATELET COUNT 274 10^3/uL (130-400); RED CELL DISTRIBUTION WIDTH 12.3 % (10.0-14.5); WHITE BLOOD COUNT 5.5 10^3/uL (4.3-11.0)
[2019-01-29 06:36] LABS: BUN/CREATININE RATIO 9; CALCIUM 8.5 MG/DL (8.5-10.1); CARBON DIOXIDE 22 MMOL/L (21-32); CHLORIDE 105 MMOL/L (98-107); CREATININE SERUM 0.93 MG/DL (0.60-1.30); GFR ESTIMATED > 60; GLUCOSE 140 MG/DL (70-105); POTASSIUM 3.8 MMOL/L (3.6-5.0); SODIUM 139 MMOL/L (135-145)
[2019-01-29 08:00] VITALS: BP 115/77
[2019-01-29] MEDS: GABAPENTIN 300 MG (NEURONTIN) CAP PO SCH ×2 (08:38→21:21)
[2019-01-29] MEDS: DULoxetine 30 MG (CYMBALTA) CAP PO SCH (08:38)
[2019-01-29] MEDS: PANTOPRAZOLE 40 MG (PROTONIX) TAB PO SCH (08:38)
[2019-01-29] MEDS: DOCUSATE SODIUM 100 MG (COLACE) CAP PO SCH ×2 (08:38→21:21)
[2019-01-29] MEDS: POLYETHYLENE GLYCOL 17 GM (MIRALAX) PACK PO PRN (08:49)
[2019-01-29] MEDS: LEVOFLOXACIN 500 MG TAB (LEVAQUIN) PO SCH (12:30)
--- NOTE | 2019-01-29 13:54 | Progress Note ---
Standard Progress Note Progress Notes/Assess & Plan Date Seen by a Provider: Jan 29, 2019 Time Seen by a Provider: 13:51 Progress/Assessment & Plan 48-year-old female admitted with recurrence of herpetic neuralgia involving the right side of face on 01/24/2019. Last flare was in January 2018 requiring hospitalization. She has history of stage III malignant melanoma involving the right cervical lymph nodes and underwent right radical neck dissection followed by radiation therapy at [facility] [place]. She received adjuvant interferon therapy for 1 year completing all treatments by 2003. 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 Past few years she has had flareup of herpes infection involving right side of face causing significant pain. She was evaluated at [facility] with a right cheek biopsy in 2010 with diagnosis of herpes incognito. Unable to do PCR for HSV and VZV because of inadequate tissue. She has responded to flareups with IV acyclovir in the past. Patient is feeling better today. Continues to have tingling in the nose. No new lesions noted. Previously noted lesions on the upper lip significantly improved. We will continue IV acyclovir 500 mg every 8 hours. Continue fentanyl 25 g as needed for pain control. Patient is using pain medications less frequently. Continue gabapentin 300 mg twice a day. Her main complaint today was constipation as she has not had a bowel movement for 5-6 days. Will administer Dulcolax suppository 1 today. Continue to monitor closely. MARYSE VIVAS Jan 29, 2019 13:54 POS
[2019-01-29] MEDS ORDERED: BISACODYL 10 MG SUPP (DULCOLAX) PR NR (14:00)
--- NOTE | 2019-01-29 16:05 | NUR ---
Pt is [employer]. [employer] provided prayer and Communion.
[2019-01-29 16:40] VITALS: BP 105/56
[2019-01-29] MEDS: AMITRIPTYLINE 25 MG (ELAVIL) TAB PO SCH (21:21)
[2019-01-30] VITALS: BP 128/74
[2019-01-30] MEDS: ACYCLOVIR INJECTION 500 MG in NS (IVPB) 100 ML IV SCH ×3 (05:36→22:04)
[2019-01-30] MEDS: fentaNYL INJECTION 100 MCG/2 ML AMP IVP PRN ×5 (05:37→20:22)
[2019-01-30] MEDS: CATHETER FLUSH 10 ML SYR IV SCH ×3 (05:37→22:04)
[2019-01-30 08:00] VITALS: BP 118/72
[2019-01-30] MEDS: DULoxetine 30 MG (CYMBALTA) CAP PO SCH (09:47)
[2019-01-30] MEDS: GABAPENTIN 300 MG (NEURONTIN) CAP PO SCH ×2 (09:47→20:22)
[2019-01-30] MEDS: PANTOPRAZOLE 40 MG (PROTONIX) TAB PO SCH (09:47)
[2019-01-30] MEDS: DOCUSATE SODIUM 100 MG (COLACE) CAP PO SCH ×2 (09:48→20:22)
--- NOTE | 2019-01-30 10:40 | NUR ---
provided prayer and Communion.
--- NOTE | 2019-01-30 14:44 | NUR ---
"RD ASSESSMENT PMHx: recurrent herpes zoster; hypercholesterolemia; HTN; chronic UTI; GERD; melanoma PT INTERACTION: Pt was awake and pleasant during nutrition assessment. Pt states current appetite is pretty poor and has been for the past 3-4 days. Note pt avg PO intake of 56% x3d, per chart review. Pt states following a blander diet at home d/t IBS. Pt states no issues chewing/swallowing food, other than issues caused by her burning tongue syndrome and dry mouth. Pt states no recent issues with n/v at this time. Pt states chronic issues with constipation and diarrhea d/t IBS. Note last BM was 01/29 (x2), and pt currently on bowel regimen of colace BID and miralax PRN, per chart review. Pt states no recent wt changes. Note recent 10# wt gain x7mon, per chart review. ABNORMAL NUTRITION-RELATED LAB VALUES LOW: HIGH: glu 140 Est. kcal needs: 4754-1545 kcal | 15-20 kcal/kg Est. Pro needs: 97-116 g Pro | 1.0-1.2 g Pro/kg PES STATEMENT: Inadequate oral intake (NI-2.1) related to loss of appetite | constipation/diarrhea as evidenced by pt interview | avg PO intake of 56% x3d INTERVENTION: Continue with current diet order of Regular diet. Note pt PO intake has improved today. Pt may benefit from nutrition supplementation if PO intake declines. Will continue to follow and reassess as pt needs and status change. MONITOR/EVALUATE: PO Intake; Plan of Care; Hydration Status; Weight Status; Lab Values Geeta Song, MS, RD, LD"
[2019-01-30 16:00] VITALS: BP 112/67
--- NOTE | 2019-01-30 17:21 | Progress Note ---
Standard Progress Note Progress Notes/Assess & Plan Date Seen by a Provider: Jan 30, 2019 Time Seen by a Provider: 17:17 Progress/Assessment & Plan 48-year-old female admitted with recurrence of herpetic neuralgia involving the right side of face on 01/24/2019. Last flare was in January 2018 requiring hospitalization. She has history of stage III malignant melanoma involving the right cervical lymph nodes and underwent right radical neck dissection followed by radiation therapy at [facility] [place]. She received adjuvant interferon therapy for 1 year completing all treatments by 2003. 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 Past few years she has had flareup of herpes infection involving right side of face causing significant pain. She was evaluated at [facility] with a right cheek biopsy in 2010 with diagnosis of herpes incognito. Unable to do PCR for HSV and VZV because of inadequate tissue. She has responded to flareups with IV acyclovir in the past. Patient complained of increased sore throat and sinus drainage. She also complained of increased tingling on the right side of the nose, forehead and lip. Requiring increased amount of pain medications today to feel comfortable. No temperature spikes. Had a good bowel movement with a suppository yesterday as well as today. Ambulating in the hallway. Examination showed that the mouth or posterior pharynx and uvula but no lesions noted. We will start patient on azithromycin 500 mg IV daily 5 days. Increase fentanyl to 50 g IV every 4 hours as needed for pain control. Continue IV acyclovir. We will add warm salt water gargles as needed for throat discomfort. MARYSE VIVAS Jan 30, 2019 17:21 POS
[2019-01-30] MEDS: AZITHROMYCIN INJECTION 500 MG in NS (IVPB) 250 ML IV SCH (18:47)
[2019-01-30] MEDS ORDERED: AZITHROMYCIN INJECTION 500 MG in NS (IVPB) 250 ML IV SCH (19:00)
[2019-01-30] MEDS: AMITRIPTYLINE 25 MG (ELAVIL) TAB PO SCH (20:22)
[2019-01-31] VITALS: BP 112/67
--- NOTE | 2019-01-31 | NUR ---
RECEIVED REPORT FROM BRANDON VILLAR.
[2019-01-31] MEDS: fentaNYL INJECTION 100 MCG/2 ML AMP IVP PRN ×6 (01:28→20:14)
--- NOTE | 2019-01-31 03:54 | NUR ---
PT SEEN WALKING HALLS. ADVISED PT SHE IS IN CONTACT ISOLATION AND SHE NEEDS TO STAY IN HER ROOM. SHE STATED DR. BURTON WANTS HER TO WALK. REQUESTED THAT SHE WALK IN HER ROOM AND NOT THE HALLS SHE IS IN CONTACT ISOLATION. IF SHE IS LEAVING HER ROOM THAN THAT DEFEATS THE CONCEPT OF CONTACT ISOLATION. SHE AGAIN STATED HER WANTED HER TO WALK. I REQUESTED SHE NOT WALK IN THE HALLS UNTIL I CAN VERIFY THIS IS WHAT HE IS ALLOWING. IF SO THAN TAKING PT OFF CONTACT PRECAUTIONS MIGHT BE CONSIDERED.
[2019-01-31] MEDS: CATHETER FLUSH 10 ML SYR IV SCH ×3 (05:50→22:15)
[2019-01-31] MEDS: ACYCLOVIR INJECTION 500 MG in NS (IVPB) 100 ML IV SCH ×3 (05:51→21:53)
[2019-01-31 08:00] VITALS: BP 119/76
[2019-01-31] MEDS: DOCUSATE SODIUM 100 MG (COLACE) CAP PO SCH ×2 (08:02→20:13)
[2019-01-31] MEDS: DULoxetine 30 MG (CYMBALTA) CAP PO SCH (08:02)
[2019-01-31] MEDS: FENTANYL PATCH REMOVAL TP SCH (08:02)
[2019-01-31] MEDS: GABAPENTIN 300 MG (NEURONTIN) CAP PO SCH ×2 (08:02→20:13)
[2019-01-31] MEDS: fentaNYL PATCH 12 MCG (DURAGESIC) TD SCH (08:03)
[2019-01-31] MEDS: PANTOPRAZOLE 40 MG (PROTONIX) TAB PO SCH (08:03)
--- NOTE | 2019-01-31 11:37 | NUR ---
provided prayer and Communion.
--- NOTE | 2019-01-31 15:05 | Progress Note ---
Standard Progress Note Progress Notes/Assess & Plan Date Seen by a Provider: Jan 31, 2019 Time Seen by a Provider: 15:01 Progress/Assessment & Plan 48-year-old female admitted with recurrence of herpetic neuralgia involving the right side of face on 01/24/2019. Last flare was in January 2018 requiring hospitalization. She has history of stage III malignant melanoma involving the right cervical lymph nodes and underwent right radical neck dissection followed by radiation therapy at [facility] [place]. She received adjuvant interferon therapy for 1 year completing all treatments by 2003. 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 Past few years she has had flareup of herpes infection involving right side of face causing significant pain. She was evaluated at [facility] with a right cheek biopsy in 2010 with diagnosis of herpes incognito. Unable to do PCR for HSV and VZV because of inadequate tissue. She has responded to flareups with IV acyclovir in the past. Sore throat is better and she is continuing warm saline gargles. She complained of continued tingling on the right side of the nose, forehead and lip. A new lesion in the right ear is bleeding intermittently since last night. Requiring pain medications regularly. No temperature spikes. Ambulating in the hallway. Examination showed that the erythema of posterior pharynx and uvula is slightly better than yesterday. Continue on azithromycin 500 mg IV daily 5 days. Cont inue IV acyclovir. MARYSE VIVAS Jan 31, 2019 15:05 POS
[2019-01-31 15:40] VITALS: BP 105/71
[2019-01-31] MEDS: AZITHROMYCIN INJECTION 500 MG in NS (IVPB) 250 ML IV SCH (17:40)
[2019-01-31] MEDS: NEO/POLY/BAC (NEOSPORIN) OINT 15 GM TUBE TOP SCH (20:13)
[2019-01-31] MEDS: DOXEPIN 25 MG (SINEquan) CAP PO SCH (20:13)
[2019-01-31 23:39] VITALS: BP 115/67
[2019-02-01] MEDS: fentaNYL INJECTION 100 MCG/2 ML AMP IVP PRN ×5 (00:49→21:53)
[2019-02-01 04:15] VITALS: BP 121/83
[2019-02-01] MEDS: ACYCLOVIR INJECTION 500 MG in NS (IVPB) 100 ML IV SCH ×3 (05:17→21:36)
[2019-02-01 05:40] LABS: BASOPHILS % (AUTO) 0 % (0-10); EOSINOPHILS # (AUTO) 0.4 10^3/uL (0.0-0.3); EOSINOPHILS % (AUTO) 7 % (0-10); HEMATOCRIT 36 % (35-52); HEMOGLOBIN 11.8 G/DL (11.5-16.0); LYMPHOCYTES # (AUTO) 1.7 X 10^3 (1.0-4.0); LYMPHOCYTES % (AUTO) 30 % (12-44); MEAN CORPUSCULAR HEMOGLOBIN 30 PG (25-34); MEAN CORPUSCULAR HGB CONC 33 G/DL (32-36); MEAN CORPUSCULAR VOLUME 92 FL (80-99); MEAN PLATELET VOLUME 8.6 FL (7.4-10.4); MONOCYTES # (AUTO) 0.5 X 10^3 (0.0-1.0); MONOCYTES % (AUTO) 8 % (0-12); NEUTROPHILS # (AUTO) 3.1 X 10^3 (1.8-7.8); NEUTROPHILS % (AUTO) 55 % (42-75); PLATELET COUNT 228 10^3/uL (130-400); RED CELL DISTRIBUTION WIDTH 12.5 % (10.0-14.5); WHITE BLOOD COUNT 5.5 10^3/uL (4.3-11.0)
[2019-02-01 06:03] LABS: BUN/CREATININE RATIO 6; CALCIUM 8.7 MG/DL (8.5-10.1); CARBON DIOXIDE 24 MMOL/L (21-32); CHLORIDE 102 MMOL/L (98-107); CREATININE SERUM 0.84 MG/DL (0.60-1.30); GFR ESTIMATED > 60; GLUCOSE 147 MG/DL (70-105); SODIUM 138 MMOL/L (135-145)
[2019-02-01] MEDS: CATHETER FLUSH 10 ML SYR IV SCH ×3 (07:30→22:00)
[2019-02-01 08:00] VITALS: BP 117/80
[2019-02-01] MEDS: PANTOPRAZOLE 40 MG (PROTONIX) TAB PO SCH (08:16)
[2019-02-01] MEDS: GABAPENTIN 300 MG (NEURONTIN) CAP PO SCH (08:16)
[2019-02-01] MEDS: DOCUSATE SODIUM 100 MG (COLACE) CAP PO SCH ×2 (08:17→21:36)
[2019-02-01] MEDS: DULoxetine 30 MG (CYMBALTA) CAP PO SCH (08:17)
[2019-02-01] MEDS: OXYBUTYNIN (DITROPAN) 5 MG TAB PO SCH (08:17)
[2019-02-01] MEDS: NEO/POLY/BAC (NEOSPORIN) OINT 15 GM TUBE TOP SCH ×2 (10:23→21:37)
--- NOTE | 2019-02-01 11:01 | Progress Note ---
Standard Progress Note Progress Notes/Assess & Plan Date Seen by a Provider: Feb 01, 2019 Time Seen by a Provider: 10:58 Progress/Assessment & Plan 48-year-old female admitted with recurrence of herpetic neuralgia involving the right side of face on 01/24/2019. Last flare was in January 2018 requiring hospitalization. She has history of stage III malignant melanoma involving the right cervical lymph nodes and underwent right radical neck dissection followed by radiation therapy at [facility] [place]. She received adjuvant interferon therapy for 1 year completing all treatments by 2003. 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 Past few years she has had flareup of herpes infection involving right side of face causing significant pain. She was evaluated at [facility] with a right cheek biopsy in 2010 with diagnosis of herpes incognito. Unable to do PCR for HSV and VZV because of inadequate tissue. She has responded to flareups with IV acyclovir in the past. Sore throat is better and she is continuing warm saline gargles. She complained of continued tingling on the right side of the nose, forehead and lip. A few new lesion in the right side of face and nose since last night. Requiring pain medications regularly. No bowel movements. Not using Miralax and advised to use daily. Continue on azithromycin 500 mg IV daily 5 days. Continue IV acyclovir. Increase gabapentin to 600 mg at bedtime. MARYSE VIVAS Feb 01, 2019 11:01 POS
[2019-02-01] MEDS: POLYETHYLENE GLYCOL 17 GM (MIRALAX) PACK PO PRN (11:42)
[2019-02-01 16:00] VITALS: BP 114/77
[2019-02-01] MEDS: AZITHROMYCIN INJECTION 500 MG in NS (IVPB) 250 ML IV SCH (17:42)
[2019-02-01] MEDS: GABAPENTIN 600 MG (NEURONTIN) TAB PO SCH (17:42)
[2019-02-01] MEDS: DOXEPIN 25 MG (SINEquan) CAP PO SCH (21:36)
[2019-02-01 23:40] VITALS: BP 124/83
[2019-02-02] MEDS: fentaNYL INJECTION 100 MCG/2 ML AMP IVP PRN ×5 (03:20→22:43)
[2019-02-02] MEDS: ACYCLOVIR INJECTION 500 MG in NS (IVPB) 100 ML IV SCH ×3 (06:29→21:29)
[2019-02-02] MEDS: GABAPENTIN 600 MG (NEURONTIN) TAB PO SCH ×2 (06:30→20:13)
[2019-02-02] MEDS: CATHETER FLUSH 10 ML SYR IV SCH ×3 (06:32→21:30)
[2019-02-02] MEDS: GABAPENTIN 300 MG (NEURONTIN) CAP PO SCH ×2 (07:09→07:30)
[2019-02-02] MEDS: PANTOPRAZOLE 40 MG (PROTONIX) TAB PO SCH (07:56)
[2019-02-02] MEDS: DOCUSATE SODIUM 100 MG (COLACE) CAP PO SCH ×2 (07:56→20:13)
[2019-02-02] MEDS: DULoxetine 30 MG (CYMBALTA) CAP PO SCH (07:57)
[2019-02-02] MEDS: NEO/POLY/BAC (NEOSPORIN) OINT 15 GM TUBE TOP SCH ×2 (07:57→20:14)
[2019-02-02] MEDS: OXYBUTYNIN (DITROPAN) 5 MG TAB PO SCH (07:58)
[2019-02-02 08:00] VITALS: BP 121/67
--- NOTE | 2019-02-02 12:00 | Progress Note ---
Standard Progress Note Progress Notes/Assess & Plan Date Seen by a Provider: Feb 02, 2019 Time Seen by a Provider: 11:56 Progress/Assessment & Plan 48-year-old female admitted with recurrence of herpetic neuralgia involving the right side of face on 01/24/2019. Last flare was in January 2018 requiring hospitalization. She has history of stage III malignant melanoma involving the right cervical lymph nodes and underwent right radical neck dissection followed by radiation therapy at [facility] [place]. She received adjuvant interferon therapy for 1 year completing all treatments by 2003. 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 Past few years she has had flareup of herpes infection involving right side of face causing significant pain. She was evaluated at [facility] with a right cheek biopsy in 2010 with diagnosis of herpes incognito. Unable to do PCR for HSV and VZV because of inadequate tissue. She has responded to flareups with IV acyclovir in the past. Sore throat is continuing to improve and she is using warm saline gargles. Tingling on the right side of the nose, forehead and lip slightly better. No new skin lesions noted. Requiring pain medications fairly regularly. Rested better last night. Continue on azithromycin 500 mg IV daily 5 days. Continue IV acyclovir. Gabapentin 300 mg in morning and 600 mg at bedtime. MARYSE VIVAS Feb 02, 2019 12:00 POS
--- NOTE | 2019-02-02 13:21 | NUR ---
THROUGHOUT MY SHIFT NOTE THAT THE COMPUTER SCANNER WAS NOT WORKING AND THE 4 GRACE WAS STICKING -- IT HAS BEEN MADE AWARE --
[2019-02-02 16:00] VITALS: BP 113/59
--- NOTE | 2019-02-02 16:50 | NUR ---
COMPUTER SCAN CONTINUES TO NOT WORK AND 4 ON GRACE BOARD STILL STICKS
[2019-02-02] MEDS: AZITHROMYCIN INJECTION 500 MG in NS (IVPB) 250 ML IV SCH (18:00)
[2019-02-02] MEDS: DOXEPIN 25 MG (SINEquan) CAP PO SCH (20:13)
[2019-02-02] MEDS: POLYETHYLENE GLYCOL 17 GM (MIRALAX) PACK PO PRN (20:14)
[2019-02-03] VITALS: BP 128/89
[2019-02-03] MEDS: fentaNYL INJECTION 100 MCG/2 ML AMP IVP PRN ×5 (03:36→19:57)
[2019-02-03] MEDS: CATHETER FLUSH 10 ML SYR IV SCH ×3 (06:33→22:36)
[2019-02-03] MEDS: ACYCLOVIR INJECTION 500 MG in NS (IVPB) 100 ML IV SCH ×3 (06:33→22:01)
[2019-02-03] MEDS: GABAPENTIN 300 MG (NEURONTIN) CAP PO SCH (06:33)
[2019-02-03 08:00] VITALS: BP 121/63
[2019-02-03] MEDS: FENTANYL PATCH REMOVAL TP SCH (08:12)
[2019-02-03] MEDS: POLYETHYLENE GLYCOL 17 GM (MIRALAX) PACK PO PRN (08:16)
[2019-02-03] MEDS: DOCUSATE SODIUM 100 MG (COLACE) CAP PO SCH ×2 (08:16→19:55)
[2019-02-03] MEDS: OXYBUTYNIN (DITROPAN) 5 MG TAB PO SCH (08:16)
[2019-02-03] MEDS: DULoxetine 30 MG (CYMBALTA) CAP PO SCH (08:16)
[2019-02-03] MEDS: PANTOPRAZOLE 40 MG (PROTONIX) TAB PO SCH (08:16)
[2019-02-03] MEDS: NEO/POLY/BAC (NEOSPORIN) OINT 15 GM TUBE TOP SCH ×2 (08:17→21:00)
[2019-02-03] MEDS: fentaNYL PATCH 12 MCG (DURAGESIC) TD SCH (08:17)
--- NOTE | 2019-02-03 13:30 | NUR ---
provided prayer and Communion.
[2019-02-03 16:50] VITALS: BP 108/66
--- NOTE | 2019-02-03 16:58 | Progress Note ---
Standard Progress Note Progress Notes/Assess & Plan Date Seen by a Provider: Feb 03, 2019 Time Seen by a Provider: 16:56 Progress/Assessment & Plan 48-year-old female admitted with recurrence of herpetic neuralgia involving the right side of face on 01/24/2019. Last flare was in January 2018 requiring hospitalization. She has history of stage III malignant melanoma involving the right cervical lymph nodes and underwent right radical neck dissection followed by radiation therapy at [facility] [place]. She received adjuvant interferon therapy for 1 year completing all treatments by 2003. 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 Past few years she has had flareup of herpes infection involving right side of face causing significant pain. She was evaluated at [facility] with a right cheek biopsy in 2010 with diagnosis of herpes incognito. Unable to do PCR for HSV and VZV because of inadequate tissue. She has responded to flareups with IV acyclovir in the past. Patient's feels better than past few days. Tingling on the right side of the nose, forehead and lip is better. No new skin lesions noted. Requiring less pain medications today. Rested throughout the day as she didn't sleep well last night. Continue on azithromycin 500 mg IV daily 5 days. Continue IV acyclovir. Supply of IV acyclovir running low and patient aware of this. Gabapentin 300 mg in morning and 600 mg at bedtime. Appetite good and bowels working with laxatives and stool softeners. MARYSE VIVAS Feb 03, 2019 16:58 POS
[2019-02-03] MEDS: AZITHROMYCIN INJECTION 500 MG in NS (IVPB) 250 ML IV SCH (18:43)
[2019-02-03] MEDS: GABAPENTIN 600 MG (NEURONTIN) TAB PO SCH (18:44)
[2019-02-03] MEDS: DOXEPIN 25 MG (SINEquan) CAP PO SCH (19:55)
[2019-02-04] VITALS: BP 106/64
[2019-02-04] MEDS: fentaNYL INJECTION 100 MCG/2 ML AMP IVP PRN ×6 (00:04→21:26)
[2019-02-04] MEDS: CATHETER FLUSH 10 ML SYR IV SCH ×3 (06:48→22:20)
[2019-02-04] MEDS: ACYCLOVIR INJECTION 500 MG in NS (IVPB) 100 ML IV SCH ×3 (06:48→22:18)
[2019-02-04] MEDS: GABAPENTIN 300 MG (NEURONTIN) CAP PO SCH (06:48)
[2019-02-04] MEDS: DOCUSATE SODIUM 100 MG (COLACE) CAP PO SCH ×2 (08:19→21:24)
[2019-02-04] MEDS: PANTOPRAZOLE 40 MG (PROTONIX) TAB PO SCH (08:19)
[2019-02-04] MEDS: OXYBUTYNIN (DITROPAN) 5 MG TAB PO SCH (08:19)
[2019-02-04] MEDS: DULoxetine 30 MG (CYMBALTA) CAP PO SCH (08:19)
[2019-02-04] MEDS: NEO/POLY/BAC (NEOSPORIN) OINT 15 GM TUBE TOP SCH ×2 (08:21→22:09)
[2019-02-04 08:30] VITALS: BP 116/69
[2019-02-04] MEDS: POLYETHYLENE GLYCOL 17 GM (MIRALAX) PACK PO PRN (15:16)
--- NOTE | 2019-02-04 15:59 | NUR ---
provided prayer and Communion.
--- NOTE | 2019-02-04 16:20 | Progress Note ---
Standard Progress Note Progress Notes/Assess & Plan Date Seen by a Provider: Feb 04, 2019 Time Seen by a Provider: 16:16 Progress/Assessment & Plan 48-year-old female admitted with recurrence of herpetic neuralgia involving the right side of face on 01/24/2019. Last flare was in January 2018 requiring hospitalization. She has history of stage III malignant melanoma involving the right cervical lymph nodes and underwent right radical neck dissection followed by radiation therapy at [facility] [place]. She received adjuvant interferon therapy for 1 year completing all treatments by 2003. 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 Past few years she has had flareup of herpes infection involving right side of face causing significant pain. She was evaluated at [facility] with a right cheek biopsy in 2010 with diagnosis of herpes incognito. Unable to do PCR for HSV and VZV because of inadequate tissue. She has responded to flareups with IV acyclovir in the past. Patient complained of worsening sore throat as well as burning pain on the right side of face. On examination small whitish lesions on the soft palate as well as overall her tonsils. We will obtain throat culture and start patient on Diflucan 100 mg daily. If swab positive for strep, we will change antibiotics. Advised her to restart warm saline gargles. Continue IV acyclovir. Supply of IV acyclovir running low and patient aware of this. Gabapentin 300 mg in morning and 600 mg at bedtime. Appetite good and bowels working with laxatives and stool softeners. Recheck labs tomorrow. MARYSE VIVAS Feb 04, 2019 16:20 POS
[2019-02-04 16:35] VITALS: BP 115/73
[2019-02-04] MEDS: fluCOnazole (DIFLUCAN) 100 MG TAB PO SCH (17:26)
[2019-02-04] MEDS ORDERED: fluCOnazole (DIFLUCAN) 100 MG TAB PO SCH (18:00)
[2019-02-04] MEDS: GABAPENTIN 600 MG (NEURONTIN) TAB PO SCH (18:57)
--- NOTE | 2019-02-04 21:20 | NUR ---
pt asking about suppository, states she talked to about it earlier. this nurse messaged dr Rendon, ordered a one time Dulcolax suppository.
[2019-02-04] MEDS: DOXEPIN 25 MG (SINEquan) CAP PO SCH (21:23)
[2019-02-04] MEDS ORDERED: BISACODYL 10 MG SUPP (DULCOLAX) PR ONE (21:30)
[2019-02-05 06:47] LABS: BASOPHILS % (AUTO) 0 % (0-10); EOSINOPHILS # (AUTO) 0.3 10^3/uL (0.0-0.3); EOSINOPHILS % (AUTO) 5 % (0-10); HEMATOCRIT 36 % (35-52); HEMOGLOBIN 11.7 G/DL (11.5-16.0); LYMPHOCYTES # (AUTO) 1.6 X 10^3 (1.0-4.0); LYMPHOCYTES % (AUTO) 29 % (12-44); MEAN CORPUSCULAR HEMOGLOBIN 30 PG (25-34); MEAN CORPUSCULAR HGB CONC 33 G/DL (32-36); MEAN CORPUSCULAR VOLUME 92 FL (80-99); MEAN PLATELET VOLUME 8.6 FL (7.4-10.4); MONOCYTES # (AUTO) 0.4 X 10^3 (0.0-1.0); MONOCYTES % (AUTO) 8 % (0-12); NEUTROPHILS # (AUTO) 3.1 X 10^3 (1.8-7.8); NEUTROPHILS % (AUTO) 57 % (42-75); PLATELET COUNT 232 10^3/uL (130-400); RED CELL DISTRIBUTION WIDTH 12.6 % (10.0-14.5); WHITE BLOOD COUNT 5.4 10^3/uL (4.3-11.0)
[2019-02-05 07:02] LABS: ALANINE AMINOTRANSFERASE 91 U/L (0-55); ALBUMIN 3.6 GM/DL (3.2-4.5); ALKALINE PHOSPHATASE 73 U/L (40-136); BILIRUBIN,TOTAL 0.6 MG/DL (0.1-1.0); BUN/CREATININE RATIO 8; CALCIUM 9.1 MG/DL (8.5-10.1); CARBON DIOXIDE 27 MMOL/L (21-32); CHLORIDE 103 MMOL/L (98-107); GFR ESTIMATED > 60; GLUCOSE 108 MG/DL (70-105); POTASSIUM 4.4 MMOL/L (3.6-5.0); SODIUM 139 MMOL/L (135-145); TOTAL PROTEIN 6.1 GM/DL (6.4-8.2)
[2019-02-05 08:00] VITALS: BP 146/65
[2019-02-05] MEDS: OXYBUTYNIN (DITROPAN) 5 MG TAB PO SCH (09:00)
[2019-02-05] MEDS: DOCUSATE SODIUM 100 MG (COLACE) CAP PO SCH ×2 (09:00→20:29)
[2019-02-05] MEDS: DULoxetine 30 MG (CYMBALTA) CAP PO SCH (09:00)
[2019-02-05] MEDS: PANTOPRAZOLE 40 MG (PROTONIX) TAB PO SCH (09:00)
[2019-02-05] MEDS: NEO/POLY/BAC (NEOSPORIN) OINT 15 GM TUBE TOP SCH ×2 (09:01→20:32)
[2019-02-05] MEDS: CATHETER FLUSH 10 ML SYR IV SCH ×3 (09:03→22:29)
[2019-02-05] MEDS: ACYCLOVIR INJECTION 500 MG in NS (IVPB) 100 ML IV SCH ×3 (09:04→22:27)
[2019-02-05] MEDS: GABAPENTIN 300 MG (NEURONTIN) CAP PO SCH (09:04)
--- NOTE | 2019-02-05 11:47 | NUR ---
provided prayer and Communion.
[2019-02-05] MEDS: fentaNYL INJECTION 100 MCG/2 ML AMP IVP PRN ×3 (12:44→22:27)
--- NOTE | 2019-02-05 13:42 | Progress Note ---
Standard Progress Note Progress Notes/Assess & Plan Date Seen by a Provider: Feb 05, 2019 Time Seen by a Provider: 13:25 Progress/Assessment & Plan 48-year-old female admitted with recurrence of herpetic neuralgia involving the right side of face on 01/24/2019. Last flare was in January 2018 requiring hospitalization. She has history of stage III malignant melanoma involving the right cervical lymph nodes and underwent right radical neck dissection followed by radiation therapy at [facility] [place]. She received adjuvant interferon therapy for 1 year completing all treatments by 2003. 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 Past few years she has had flareup of herpes infection involving right side of face causing significant pain. She was evaluated at [facility] with a right cheek biopsy in 2010 with diagnosis of herpes incognito. Unable to do PCR for HSV and VZV because of inadequate tissue. She has responded to flareups with IV acyclovir in the past. Sore throat better today. No whitish lesions seen today. Throat culture negative for strep continue patient on Diflucan 100 mg daily. Advised her to continue warm saline gargles. Continue IV acyclovir. Supply of IV acyclovir running low and patient aware of this. # more days of medicine available locally and switch to 800 mg by mouth 5 times daily until symptoms improved and then 400 mg twice daily as suppressive dose. Continue Gabapentin 300 mg in morning and 600 mg at bedtime. Appetite good and bowels working with laxatives and stool softeners. Patient needed Dulcolax suppository last night. Lab work stable. Dr. Devlin is assuming care as I'll be out of town until 02/24/2019. MARYSE VIVAS Feb 05, 2019 13:42
[2019-02-05 16:40] VITALS: BP 115/65
[2019-02-05] MEDS: fluCOnazole (DIFLUCAN) 100 MG TAB PO SCH (17:24)
[2019-02-05] MEDS: GABAPENTIN 600 MG (NEURONTIN) TAB PO SCH (17:24)
[2019-02-05] MEDS: DOXEPIN 25 MG (SINEquan) CAP PO SCH (20:30)
[2019-02-05] MEDS: POLYETHYLENE GLYCOL 17 GM (MIRALAX) PACK PO PRN (20:31)
[2019-02-06] VITALS: BP 107/70
[2019-02-06] MEDS: fentaNYL INJECTION 100 MCG/2 ML AMP IVP PRN ×4 (04:07→19:50)
[2019-02-06] MEDS: GABAPENTIN 300 MG (NEURONTIN) CAP PO SCH (06:05)
[2019-02-06] MEDS: ACYCLOVIR INJECTION 500 MG in NS (IVPB) 100 ML IV SCH ×3 (06:05→21:56)
[2019-02-06] MEDS: CATHETER FLUSH 10 ML SYR IV SCH ×3 (06:07→21:56)
[2019-02-06 08:00] VITALS: BP 135/81
[2019-02-06] MEDS: FENTANYL PATCH REMOVAL TP SCH (08:12)
[2019-02-06] MEDS: DOCUSATE SODIUM 100 MG (COLACE) CAP PO SCH ×2 (08:15→21:55)
[2019-02-06] MEDS: fentaNYL PATCH 12 MCG (DURAGESIC) TD SCH ×2 (08:15→10:39)
[2019-02-06] MEDS: PANTOPRAZOLE 40 MG (PROTONIX) TAB PO SCH (08:15)
[2019-02-06] MEDS: DULoxetine 30 MG (CYMBALTA) CAP PO SCH (08:15)
[2019-02-06] MEDS: OXYBUTYNIN (DITROPAN) 5 MG TAB PO SCH (08:15)
[2019-02-06] MEDS: NEO/POLY/BAC (NEOSPORIN) OINT 15 GM TUBE TOP SCH ×2 (09:00→21:56)
[2019-02-06 16:45] VITALS: BP 102/68
[2019-02-06] MEDS: GABAPENTIN 600 MG (NEURONTIN) TAB PO SCH (18:11)
[2019-02-06] MEDS: fluCOnazole (DIFLUCAN) 100 MG TAB PO SCH (18:11)
[2019-02-06] MEDS ORDERED: BISACODYL 10 MG SUPP (DULCOLAX) PR PRN (18:15)
--- NOTE | 2019-02-06 18:37 | Progress Note ---
Standard Progress Note Progress Notes/Assess & Plan Date Seen by a Provider: Feb 06, 2019 Time Seen by a Provider: 18:15 Progress/Assessment & Plan 48-year-old female admitted with recurrence of herpetic neuralgia involving the right side of face on 01/24/2019. Last flare was in January 2018 requiring hospitalization. She has history of stage III malignant melanoma involving the right cervical lymph nodes and underwent right radical neck dissection followed by radiation therapy. She recurred to the abdominal wall and was resected and has been on surveillance since then without evidence of recurrence. Patient was diagnosed with herpes incognito with a right cheek biopsy in 2010 at [facility] and has been readmitted with recurrence more than 20 times since then. 1) Today, patient complains of worsening swelling of her right cheek and development of a small new bullous lesion on her upper lip. Her mouth continues to be sore but she thinks she may have brushed too vigorously this morning. Continue same pain regimen. 2) She also complains of persistent sinus congestion and drainage. She just completed a course of antibiotics for URI. Diflucan 100 mg daily was started for treatment of thrush and we will continue this. Advised her to continue warm saline gargles. 3) Continue IV acyclovir. National shortage of IV acyclovir and patient aware of this. One to two more days of medicine available locally and switch to 800 mg by mouth 5 times daily until symptoms improved and then 400 mg twice daily as suppressive dose. Patient is concerned that PO acyclovir has not worked well in the past for severe flares such as this admission, and valacyclovir has not worked either. May consider famciclovir in this case. In extreme case, may consider request to transfer to a larger facility that may have more supply of IV acyclovir. Continue Gabapentin 300 mg in morning and 600 mg at bedtime. 4) Patient still has some constipation despite stool softeners and osmotic laxatives, so we will make bisacodyl available prn. 5) AST and ALT were mildly elevated yesterday. Will recheck tomorrow. DEVI ALDANA MD Feb 06, 2019 18:37
[2019-02-06] MEDS: DOXEPIN 25 MG (SINEquan) CAP PO SCH (21:55)
[2019-02-07] VITALS: BP 132/82
[2019-02-07] MEDS: fentaNYL INJECTION 100 MCG/2 ML AMP IVP PRN ×6 (00:35→21:58)
[2019-02-07 04:38] LABS: HEMOGLOBIN 11.7 G/DL (11.5-16.0); MEAN PLATELET VOLUME 8.6 FL (7.4-10.4); RED CELL DISTRIBUTION WIDTH 12.8 % (10.0-14.5); WHITE BLOOD COUNT 4.9 10^3/uL (4.3-11.0)
[2019-02-07 04:58] LABS: ALANINE AMINOTRANSFERASE 83 U/L (0-55); ALBUMIN 3.7 GM/DL (3.2-4.5); ALKALINE PHOSPHATASE 73 U/L (40-136); BILIRUBIN,TOTAL 0.4 MG/DL (0.1-1.0); BUN/CREATININE RATIO 8; CALCIUM 9.1 MG/DL (8.5-10.1); CARBON DIOXIDE 25 MMOL/L (21-32); CHLORIDE 102 MMOL/L (98-107); CREATININE SERUM 0.79 MG/DL (0.60-1.30); GFR ESTIMATED > 60; GLUCOSE 107 MG/DL (70-105); SODIUM 138 MMOL/L (135-145); TOTAL PROTEIN 6.1 GM/DL (6.4-8.2)
[2019-02-07] MEDS: GABAPENTIN 300 MG (NEURONTIN) CAP PO SCH (06:18)
[2019-02-07] MEDS: CATHETER FLUSH 10 ML SYR IV SCH ×3 (06:18→21:57)
[2019-02-07] MEDS: ACYCLOVIR INJECTION 500 MG in NS (IVPB) 100 ML IV SCH ×3 (06:18→21:57)
[2019-02-07] MEDS: DOCUSATE SODIUM 100 MG (COLACE) CAP PO SCH ×2 (07:52→20:14)
[2019-02-07] MEDS: DULoxetine 30 MG (CYMBALTA) CAP PO SCH (07:53)
[2019-02-07] MEDS: PANTOPRAZOLE 40 MG (PROTONIX) TAB PO SCH (07:53)
[2019-02-07] MEDS: OXYBUTYNIN (DITROPAN) 5 MG TAB PO SCH (07:53)
[2019-02-07] MEDS: NEO/POLY/BAC (NEOSPORIN) OINT 15 GM TUBE TOP SCH ×2 (07:54→20:14)
[2019-02-07 08:00] VITALS: BP 125/70
[2019-02-07] MEDS: POLYETHYLENE GLYCOL 17 GM (MIRALAX) PACK PO PRN (08:48)
--- NOTE | 2019-02-07 13:43 | NUR ---
provided prayer and Communion.
--- NOTE | 2019-02-07 14:21 | NUR ---
"RD ASSESSMENT PMHx: Recurrent herpes zoster; HTN; GERD; hypercholesterolemia; chronic UTI; melanoma PT INTERACTION: Pt was awake and pleasant during nutrition follow-up. Pt states eating a little better since last assessment. Note pt avg PO intake of 83% x4d, per chart review. Pt states no issues with nausea/vomiting since last assessment. Pt states dealing with chronic constipation. Note last BM was 02/06 and pt currently on bowel regimen of colace BID, per chart review. ABNORMAL NUTRITION-RELATED LAB VALUES LOW: BUN 6; Pro 6.1 HIGH: glu 107; AST 52; ALT 83 Est. kcal needs: 4649-6793 kcal | 15-20 kcal/kg Est. Pro needs: 97-116 g Pro | 1.0-1.2 g Pro/kg PES STATEMENT: Given pt's current PO intake, no nutrition diagnosis at this time (NO-1.1) INTERVENTION: Continue with current diet order of Regular diet. Will continue to follow and reassess as pt needs and status change. MONITOR/EVALUATE: PO Intake; Plan of Care; Hydration Status; Weight Status; Lab Values Geeta Song, MS, RD, LD"
[2019-02-07 15:54] VITALS: BP 128/86
[2019-02-07] MEDS: GABAPENTIN 600 MG (NEURONTIN) TAB PO SCH (17:40)
[2019-02-07] MEDS: fluCOnazole (DIFLUCAN) 100 MG TAB PO SCH (17:40)
--- NOTE | 2019-02-07 19:24 | Progress Note ---
Standard Progress Note Progress Notes/Assess & Plan Date Seen by a Provider: Feb 07, 2019 Time Seen by a Provider: 19:15 Progress/Assessment & Plan 48-year-old female admitted with recurrence of herpetic neuralgia involving the right side of face on 01/24/2019. Last flare was in January 2018 requiring hospitalization. She has history of stage III malignant melanoma involving the right cervical lymph nodes and underwent right radical neck dissection followed by radiation therapy. She recurred to the abdominal wall and was resected and has been on surveillance since then without evidence of recurrence. Patient was diagnosed with herpes incognito with a right cheek biopsy in 2010 at [facility] and has been readmitted with recurrence more than 20 times since then. 1) Today, swelling of her right cheek has worsened. Pain radiates down her right neck. Continue current pain regimen and monitor. 2) Continue IV acyclovir. National shortage of IV acyclovir and patient aware of this. We did receive another shipment of drug so will be able to continue IV dosing for 3 more days. When out of IV formulation, plan to switch to 800 mg by mouth 5 times daily until symptoms improved and then 400 mg twice daily as suppressive dose. Patient is concerned that PO acyclovir has not worked well in the past for severe flares such as this admission, and valacyclovir has not worked either. May consider famciclovir in this case. In extreme case, may consider request to transfer to a larger facility that may have more supply of IV acyclovir. Continue Gabapentin 300 mg in morning and 600 mg at bedtime. 3) Sinus congestion and drainage worse in the morning and improves at night. Leilani guevara completed a course of antibiotics for URI two days ago. I suspect viral etiology and will continue to monitor. Continue diflucan 100 mg daily for thrush, oral lesions resolved. Advised her to continue warm saline gargles. 4) Patient had a BM today without aid of stimulant laxative for the first time this admission. Continue stool softeners and osmotic laxatives; bisacodyl available prn. 5) Mild AST and ALT elevation improved today. Continue to monitor. DEVI ALDANA MD Feb 07, 2019 19:24
[2019-02-07] MEDS: DOXEPIN 25 MG (SINEquan) CAP PO SCH (20:12)
[2019-02-08] VITALS: BP 121/72
[2019-02-08] MEDS: fentaNYL INJECTION 100 MCG/2 ML AMP IVP PRN ×6 (02:34→21:33)
[2019-02-08] MEDS: GABAPENTIN 300 MG (NEURONTIN) CAP PO SCH (06:29)
[2019-02-08] MEDS: ACYCLOVIR INJECTION 500 MG in NS (IVPB) 100 ML IV SCH ×3 (06:29→21:33)
[2019-02-08] MEDS: CATHETER FLUSH 10 ML SYR IV SCH ×3 (06:29→21:33)
[2019-02-08 08:00] VITALS: BP 115/61
[2019-02-08] MEDS: DULoxetine 30 MG (CYMBALTA) CAP PO SCH (08:54)
[2019-02-08] MEDS: PANTOPRAZOLE 40 MG (PROTONIX) TAB PO SCH (08:54)
[2019-02-08] MEDS: DOCUSATE SODIUM 100 MG (COLACE) CAP PO SCH ×2 (08:55→19:34)
[2019-02-08] MEDS: OXYBUTYNIN (DITROPAN) 5 MG TAB PO SCH (08:59)
[2019-02-08] MEDS: NEO/POLY/BAC (NEOSPORIN) OINT 15 GM TUBE TOP SCH ×2 (09:01→19:35)
--- NOTE | 2019-02-08 12:19 | Progress Note ---
Standard Progress Note Progress Notes/Assess & Plan Date Seen by a Provider: Feb 08, 2019 Time Seen by a Provider: 12:11 Progress/Assessment & Plan 48-year-old female admitted with recurrence of herpetic neuralgia involving the right side of face on 01/24/2019. Last flare was in January 2018 requiring hospitalization. She has history of stage III malignant melanoma involving the right cervical lymph nodes and underwent right radical neck dissection followed by radiation therapy. She recurred to the abdominal wall and was resected and has been on surveillance since then without evidence of recurrence. Patient was diagnosed with herpes incognito with a right cheek biopsy in 2010 at [facility] and has been readmitted with recurrence more than 20 times since then. 1) Patient c/o developing welt on her right cheek. There is a large faintly erythematous patch in the medial V2 dermatome. Continue current pain regimen and monitor. 2) Continue IV acyclovir. National shortage of IV acyclovir and patient aware of this. We did receive another shipment of drug so will be able to continue IV dosing for 2 more days. When out of IV formulation, plan to switch to 800 mg by mouth 5 times daily until symptoms improved and then 400 mg twice daily as suppressive dose. May consider famciclovir if PO acyclovir is not sufficient. Continue Gabapentin 300 mg in morning and 600 mg at bedtime. 3) Unchanged sinus congestion and drainage. She completed a course of antibiotics for URI. I suspect viral etiology and will continue to monitor. Continue fluconazole 100 mg daily for thrush, oral lesions resolved. Advised her to continue warm saline gargles. 4) Patient had multiple BMs yesterday. Her normal routine is once every 2-3 days. Continue stool softeners and osmotic laxatives; bisacodyl available prn. 5) Mild AST and ALT elevation. Improved yesterday. Labs indicated only every 2-3 days. Continue to monitor. DEVI ALDANA MD Feb 08, 2019 12:19
[2019-02-08 15:55] VITALS: BP 123/72
[2019-02-08] MEDS: fluCOnazole (DIFLUCAN) 100 MG TAB PO SCH (18:11)
[2019-02-08] MEDS: GABAPENTIN 600 MG (NEURONTIN) TAB PO SCH (18:11)
[2019-02-08] MEDS: DOXEPIN 25 MG (SINEquan) CAP PO SCH (19:34)
[2019-02-09] VITALS: BP 114/78
[2019-02-09] MEDS: fentaNYL INJECTION 100 MCG/2 ML AMP IVP PRN ×5 (01:37→21:59)
[2019-02-09] MEDS: ACYCLOVIR INJECTION 500 MG in NS (IVPB) 100 ML IV SCH ×3 (05:43→21:58)
[2019-02-09] MEDS: CATHETER FLUSH 10 ML SYR IV SCH ×3 (05:43→21:58)
[2019-02-09] MEDS: GABAPENTIN 300 MG (NEURONTIN) CAP PO SCH (05:44)
[2019-02-09 08:00] VITALS: BP 118/82
[2019-02-09] MEDS: DULoxetine 30 MG (CYMBALTA) CAP PO SCH (08:24)
[2019-02-09] MEDS: PANTOPRAZOLE 40 MG (PROTONIX) TAB PO SCH (08:24)
[2019-02-09] MEDS: FENTANYL PATCH REMOVAL TP SCH (08:24)
[2019-02-09] MEDS: DOCUSATE SODIUM 100 MG (COLACE) CAP PO SCH ×2 (08:25→20:44)
[2019-02-09] MEDS: NEO/POLY/BAC (NEOSPORIN) OINT 15 GM TUBE TOP SCH ×2 (08:25→20:45)
[2019-02-09] MEDS: OXYBUTYNIN (DITROPAN) 5 MG TAB PO SCH (08:39)
[2019-02-09] MEDS: fentaNYL PATCH 12 MCG (DURAGESIC) TD SCH (08:39)
[2019-02-09 11:34] LABS: BASOPHILS % (AUTO) 0 % (0-10); EOSINOPHILS # (AUTO) 0.3 10^3/uL (0.0-0.3); EOSINOPHILS % (AUTO) 7 % (0-10); HEMATOCRIT 35 % (35-52); HEMOGLOBIN 11.3 G/DL (11.5-16.0); LYMPHOCYTES # (AUTO) 1.7 X 10^3 (1.0-4.0); LYMPHOCYTES % (AUTO) 36 % (12-44); MEAN CORPUSCULAR HEMOGLOBIN 30 PG (25-34); MEAN CORPUSCULAR HGB CONC 32 G/DL (32-36); MEAN CORPUSCULAR VOLUME 93 FL (80-99); MEAN PLATELET VOLUME 8.8 FL (7.4-10.4); MONOCYTES # (AUTO) 0.5 X 10^3 (0.0-1.0); MONOCYTES % (AUTO) 10 % (0-12); NEUTROPHILS # (AUTO) 2.2 X 10^3 (1.8-7.8); NEUTROPHILS % (AUTO) 47 % (42-75); PLATELET COUNT 250 10^3/uL (130-400); RED CELL DISTRIBUTION WIDTH 13.2 % (10.0-14.5); WHITE BLOOD COUNT 4.7 10^3/uL (4.3-11.0)
--- NOTE | 2019-02-09 12:53 | Progress Note ---
Standard Progress Note Progress Notes/Assess & Plan Date Seen by a Provider: Feb 09, 2019 Time Seen by a Provider: 12:49 Progress/Assessment & Plan 48-year-old female admitted with recurrence of herpetic neuralgia involving the right side of face on 01/24/2019. Last flare was in January 2018 requiring hospitalization. She has history of stage III malignant melanoma involving the right cervical lymph nodes and underwent right radical neck dissection followed by radiation therapy. She recurred to the abdominal wall and was resected and has been on surveillance since then without evidence of recurrence. Patient was diagnosed with herpes incognito with a right cheek biopsy in 2010 at [facility] and has been readmitted with recurrence more than 20 times since then. 1) Patient has unchanged pain and "welt" on her cheek. There is a large faintly erythematous patch in the medial V2 dermatome; it appears mildly improved today. There does not seem to be much improvement in her herpes incognito currently, but weare still within expected course of her usual hospitalizations. Continue current pain regimen and monitor. 2) Continue IV acyclovir. National shortage of IV acyclovir and patient aware of this. We did receive another shipment of drug so will be able to continue IV dosing for 1 more day unless we get another shipment. When out of IV formulation, plan to switch to 800 mg by mouth 5 times daily until symptoms imp roved and then 400 mg twice daily as suppressive dose. May consider famciclovir if PO acyclovir is not effective. Continue Gabapentin 300 mg in morning and 600 mg at bedtime. 3) Unchanged sinus congestion and drainage. She completed a course of antib iotics for URI. I suspect viral etiology and will continue to monitor. Continue fluconazole 100 mg daily for thrush, oral lesions resolved. On day 6 of fluconazole. Scheduled to complete a 10 day course. Advised her to continue warm saline gargles. 4) Last BM 2 days ago. Her normal routine is once every 2-3 days. Continue stool softeners and osmotic laxatives; bisacodyl available prn. 5) Mild AST and ALT elevation. Patient complains of bilateral proximal arm and leg pains, worsening over the course of 2 days. Will check CK tomorrow morning. 6) Right elbow rash for last several days, more pruritic in the last 24 hours. Hydrocortisone ointment ordered. DEVI ALDANA MD Feb 09, 2019 12:53
[2019-02-09 16:05] VITALS: BP 113/74
[2019-02-09] MEDS: GABAPENTIN 600 MG (NEURONTIN) TAB PO SCH (18:05)
[2019-02-09] MEDS: DOXEPIN 25 MG (SINEquan) CAP PO SCH (20:44)
[2019-02-09] MEDS: HYDROCORTISONE 1% OINT 30 GM TUBE TOP SCH (20:45)
[2019-02-10] VITALS: BP 118/79
[2019-02-10] MEDS: CATHETER FLUSH 10 ML SYR IV SCH ×3 (05:37→21:33)
[2019-02-10] MEDS: ACYCLOVIR INJECTION 500 MG in NS (IVPB) 100 ML IV SCH ×3 (05:37→22:44)
[2019-02-10] MEDS: fentaNYL INJECTION 100 MCG/2 ML AMP IVP PRN ×5 (05:38→22:35)
[2019-02-10] MEDS: GABAPENTIN 300 MG (NEURONTIN) CAP PO SCH (06:02)
[2019-02-10 06:24] LABS: ALANINE AMINOTRANSFERASE 88 U/L (0-55); ALBUMIN 3.6 GM/DL (3.2-4.5); ALKALINE PHOSPHATASE 67 U/L (40-136); BILIRUBIN,TOTAL 0.4 MG/DL (0.1-1.0); BUN/CREATININE RATIO 7; CARBON DIOXIDE 24 MMOL/L (21-32); CHLORIDE 103 MMOL/L (98-107); CREATINE KINASE 59 U/L (29-168); CREATININE SERUM 0.87 MG/DL (0.60-1.30); GFR ESTIMATED > 60; GLUCOSE 101 MG/DL (70-105); POTASSIUM 4.2 MMOL/L (3.6-5.0); SODIUM 137 MMOL/L (135-145); TOTAL PROTEIN 6.2 GM/DL (6.4-8.2)
[2019-02-10] MEDS: DULoxetine 30 MG (CYMBALTA) CAP PO SCH (07:51)
[2019-02-10] MEDS: PANTOPRAZOLE 40 MG (PROTONIX) TAB PO SCH (07:51)
[2019-02-10] MEDS: DOCUSATE SODIUM 100 MG (COLACE) CAP PO SCH ×2 (07:51→20:30)
[2019-02-10] MEDS: OXYBUTYNIN (DITROPAN) 5 MG TAB PO SCH (07:51)
[2019-02-10] MEDS: fluCOnazole (DIFLUCAN) 100 MG TAB PO SCH (07:52)
[2019-02-10] MEDS: NEO/POLY/BAC (NEOSPORIN) OINT 15 GM TUBE TOP SCH ×2 (07:53→21:32)
[2019-02-10] MEDS: HYDROCORTISONE 1% OINT 30 GM TUBE TOP SCH ×2 (07:55→21:32)
[2019-02-10 08:00] VITALS: BP 118/65
--- NOTE | 2019-02-10 13:21 | Progress Note ---
Progress Note Assessment/Plan Time Seen by Provider: 13:20 Events since last exam No new issues today. On IV Acyclovir and will continue to tomorrow. Assessment/Plan 48-year-old female admitted with recurrence of herpetic neuralgia involving the right side of face on 01/24/2019. Last flare was in January 2018 requiring hospitalization. She has history of stage III malignant melanoma involving the right cervical lymph nodes and underwent right radical neck dissection followed by radiation therapy. She recurred to the abdominal wall and was resected and has been on surveillance since then without evidence of recurrence. Patient was diagnosed with herpes incognito with a right cheek biopsy in 2010 at [facility] and has been readmitted with recurrence more than 20 times since then. 1) Patient has unchanged pain and "welt" on her cheek. There is a large faintly erythematous patch in the medial V2 dermatome; it appears mildly improved today. There does not seem to be much improvement in her herpes incognito currently, but weare still within expected course of her usual hospitalizations. Continue current pain regimen and monitor. 2) Continue IV acyclovir. National shortage of IV acyclovir and patient aware of this. We did receive another shipment of drug so will be able to continue IV dosing for 1 more day unless we get another shipment. When out of IV formulation, plan to switch to 800 mg by mouth 5 times daily until symptoms improved and then 400 mg twice daily as suppressive dose. May consider famciclovir if PO acyclovir is not effective. Continue Gabapentin 300 mg in morning and 600 mg at bedtime. 3) Mild elevated AST and ALT. ? etiology. possible related to drugs? Monitoring for now. Vitals Last set of Vitals Signs Vital Signs Date Time Temp Pulse Resp B/P (MAP) Pulse Ox O2 Delivery O2 Flow Rate FiO2 02/10/19 08:00 36.5 81 18 118/65 (82) 96 Room Air I&O I&O Intake and Output 02/10/19 00:00 Intake Total 5960 ml Balance 5960 ml Intake Oral 5740 ml IV Total 220 ml # Voids 17 Labs Laboratory Tests 02/10/19 05:42: Sodium Level 137, Potassium Level 4.2, Chloride Level 103, Carbon Dioxide Level 24, Anion Gap 10, Blood Urea Nitrogen 6L, Creatinine 0.87, Estimat Glomerular Filtration Rate > 60, BUN/Creatinine Ratio 7, Glucose Level 101, Calcium Level 9.0, Corrected Calcium 9.3, Total Bilirubin 0.4, Aspartate Amino Transf (AST/SGOT) 67H, Alanine Aminotransferase (ALT/SGPT) 88H, Alkaline Phosphatase 67, Total Creatine Kinase 59, Total Protein 6.2L, Albumin 3.6 Microbiology 02/04/19 Throat Culture - Final, Complete No Beta Strep isolated Clinical Quality Measures DVT/VTE Risk/Contraindication: Risk Factor Score Per Nursin RFS Level Per Nursing on Admit: 1=Low/No VTE PPX JAYJAY LICONA MD Feb 10, 2019 13:21
--- NOTE | 2019-02-10 13:53 | NUR ---
provided Communion and prayer.
[2019-02-10 16:15] VITALS: BP 110/75
[2019-02-10] MEDS: GABAPENTIN 600 MG (NEURONTIN) TAB PO SCH (17:12)
[2019-02-10] MEDS: DOXEPIN 25 MG (SINEquan) CAP PO SCH (20:30)
[2019-02-11 00:08] VITALS: BP 120/77
[2019-02-11] MEDS: fentaNYL INJECTION 100 MCG/2 ML AMP IVP PRN ×4 (04:43→21:21)
[2019-02-11] MEDS: CATHETER FLUSH 10 ML SYR IV SCH ×3 (05:15→21:23)
[2019-02-11] MEDS: GABAPENTIN 300 MG (NEURONTIN) CAP PO SCH (06:34)
[2019-02-11] MEDS: ACYCLOVIR INJECTION 500 MG in NS (IVPB) 100 ML IV SCH ×3 (06:35→21:22)
[2019-02-11 08:00] VITALS: BP 111/75
[2019-02-11] MEDS: fluCOnazole (DIFLUCAN) 100 MG TAB PO SCH (10:55)
[2019-02-11] MEDS: OXYBUTYNIN (DITROPAN) 5 MG TAB PO SCH (10:55)
[2019-02-11] MEDS: DULoxetine 30 MG (CYMBALTA) CAP PO SCH (10:55)
[2019-02-11] MEDS: NEO/POLY/BAC (NEOSPORIN) OINT 15 GM TUBE TOP SCH ×2 (10:56→21:22)
[2019-02-11] MEDS: PANTOPRAZOLE 40 MG (PROTONIX) TAB PO SCH (10:56)
[2019-02-11] MEDS: DOCUSATE SODIUM 100 MG (COLACE) CAP PO SCH ×2 (10:57→21:21)
[2019-02-11] MEDS: HYDROCORTISONE 1% OINT 30 GM TUBE TOP SCH ×2 (10:57→21:23)
--- NOTE | 2019-02-11 11:28 | NUR ---
provided prayer and Communion.
--- NOTE | 2019-02-11 14:42 | Progress Note ---
Progress Note Assessment/Plan Time Seen by Provider: 14:38 Events since last exam No new issues. Pt is aware of today is her last day of IV acyclovior. She wants to discuss with Dr Devlin tomorrow about her future treatment plan. No new lesions Assessment/Plan 48-year-old female admitted with recurrence of herpetic neuralgia involving the right side of face on 01/24/2019. Last flare was in January 2018 requiring hospitalization. She has history of stage III malignant melanoma involving the right cervical lymph nodes and underwent right radical neck dissection followed by radiation therapy. She recurred to the abdominal wall and was resected and has been on surveillance since then without evidence of recurrence. 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 1) Mild elevated AST and ALT. ? etiology. possible related to drugs? Monitoring for now. Repeat CMP tomorrow 2) Continue IV acyclovir for today. National shortage of IV acyclovir and patient aware of this. Pt wants to discuss with Dr Devlin for future treatment tomorrow. Vitals Last set of Vitals Signs Vital Signs Date Time Temp Pulse Resp B/P (MAP) Pulse Ox O2 Delivery O2 Flow Rate FiO2 02/11/19 08:00 36.2 92 18 111/75 (87) 94 Room Air I&O I&O Intake and Output 02/11/19 00:00 Intake Total 5590 ml Balance 5590 ml Intake Oral 5480 ml IV Total 110 ml # Voids 17 # Bowel Movements 6 Labs Microbiology 02/04/19 Throat Culture - Final, Complete No Beta Strep isolated Clinical Quality Measures DVT/VTE Risk/Contraindication: Risk Factor Score Per Nursin RFS Level Per Nursing on Admit: 1=Low/No VTE PPX JAYJAY LICONA MD Feb 11, 2019 14:42
[2019-02-11 16:59] VITALS: BP 117/78
[2019-02-11] MEDS: GABAPENTIN 600 MG (NEURONTIN) TAB PO SCH (21:21)
[2019-02-11] MEDS: DOXEPIN 25 MG (SINEquan) CAP PO SCH (21:21)
[2019-02-11 23:20] VITALS: BP 125/78
[2019-02-12] MEDS: fentaNYL INJECTION 100 MCG/2 ML AMP IVP PRN ×6 (02:02→23:46)
[2019-02-12 04:27] LABS: ALANINE AMINOTRANSFERASE 66 U/L (0-55); ALBUMIN 3.6 GM/DL (3.2-4.5); ALKALINE PHOSPHATASE 72 U/L (40-136); BILIRUBIN,TOTAL 0.5 MG/DL (0.1-1.0); BUN/CREATININE RATIO 8; CALCIUM 9.1 MG/DL (8.5-10.1); CARBON DIOXIDE 24 MMOL/L (21-32); CHLORIDE 103 MMOL/L (98-107); CREATININE SERUM 0.84 MG/DL (0.60-1.30); GFR ESTIMATED > 60; GLUCOSE 127 MG/DL (70-105); SODIUM 138 MMOL/L (135-145)
[2019-02-12] MEDS: GABAPENTIN 300 MG (NEURONTIN) CAP PO SCH (06:03)
[2019-02-12] MEDS: CATHETER FLUSH 10 ML SYR IV SCH ×3 (06:03→20:10)
[2019-02-12 07:20] VITALS: BP 128/77
[2019-02-12] MEDS: fluCOnazole (DIFLUCAN) 100 MG TAB PO SCH (08:12)
[2019-02-12] MEDS: FENTANYL PATCH REMOVAL TP SCH (08:13)
[2019-02-12] MEDS: DOCUSATE SODIUM 100 MG (COLACE) CAP PO SCH ×2 (08:13→20:09)
[2019-02-12] MEDS: PANTOPRAZOLE 40 MG (PROTONIX) TAB PO SCH (08:13)
[2019-02-12] MEDS: DULoxetine 30 MG (CYMBALTA) CAP PO SCH (08:13)
[2019-02-12] MEDS: OXYBUTYNIN (DITROPAN) 5 MG TAB PO SCH (08:14)
[2019-02-12] MEDS: NEO/POLY/BAC (NEOSPORIN) OINT 15 GM TUBE TOP SCH ×2 (08:15→20:09)
[2019-02-12] MEDS: fentaNYL PATCH 12 MCG (DURAGESIC) TD SCH (08:15)
[2019-02-12] MEDS: HYDROCORTISONE 1% OINT 30 GM TUBE TOP SCH ×2 (08:15→20:10)
--- NOTE | 2019-02-12 08:27 | NUR ---
WASTED DURAGESIC PATCH 12.5 MG WITH LAURA TAYLOR
--- NOTE | 2019-02-12 12:23 | Progress Note ---
Standard Progress Note Progress Notes/Assess & Plan Date Seen by a Provider: Feb 12, 2019 Time Seen by a Provider: 12:17 Progress/Assessment & Plan 48-year-old female admitted with recurrence of herpetic neuralgia involving the right side of face on 01/24/2019. Last flare was in January 2018 requiring hospitalization. She has history of stage III malignant melanoma involving the right cervical lymph nodes and underwent right radical neck dissection followed by radiation therapy. She recurred to the abdominal wall and was resected and has been on surveillance since then without evidence of recurrence. 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 1) Patient has progression of vesicular rash and facial swelling in the V2 distribution. Transition to PO acyclovir due to national shortage of IV acycl ovir, but unable to control disease in the past with just PO medications. Continue current pain regimen and monitor. Continue Gabapentin 300 mg in morning and 600 mg at bedtime. 2) Continue fluconazole 100 mg daily for thrush, oral lesions resolved. Will complete course on 02/15. Advised her to continue warm saline gargles. 3) Continue stool softeners and osmotic laxatives; bisacodyl available prn. 4) Mild AST and ALT elevation. Persistent, unclear etiology. Will continue to monitor. DEVI ALDANA MD Feb 12, 2019 12:23
[2019-02-12] MEDS ORDERED: fentaNYL INJECTION 100 MCG/2 ML AMP IVP ONE (12:45)
[2019-02-12 15:26] VITALS: BP 106/72
[2019-02-12] MEDS: ACYCLOVIR 400 MG TABLET (ZOVIRAX) PO SCH ×2 (16:00→20:10)
[2019-02-12] MEDS: GABAPENTIN 600 MG (NEURONTIN) TAB PO SCH (19:02)
[2019-02-12] MEDS: DOXEPIN 25 MG (SINEquan) CAP PO SCH (20:09)
[2019-02-12 23:35] VITALS: BP 120/76
[2019-02-13] MEDS: CATHETER FLUSH 10 ML SYR IV SCH ×3 (05:52→21:02)
[2019-02-13] MEDS: GABAPENTIN 300 MG (NEURONTIN) CAP PO SCH (05:52)
[2019-02-13] MEDS: fentaNYL INJECTION 100 MCG/2 ML AMP IVP PRN ×4 (05:53→21:07)
[2019-02-13] MEDS: ACYCLOVIR 400 MG TABLET (ZOVIRAX) PO SCH ×4 (05:53→16:54)
[2019-02-13 08:00] VITALS: BP 132/86
[2019-02-13] MEDS: fluCOnazole (DIFLUCAN) 100 MG TAB PO SCH (09:24)
[2019-02-13] MEDS: PANTOPRAZOLE 40 MG (PROTONIX) TAB PO SCH (09:24)
[2019-02-13] MEDS: DOCUSATE SODIUM 100 MG (COLACE) CAP PO SCH ×2 (09:24→21:01)
[2019-02-13] MEDS: DULoxetine 30 MG (CYMBALTA) CAP PO SCH (09:24)
[2019-02-13] MEDS: OXYBUTYNIN (DITROPAN) 5 MG TAB PO SCH (09:25)
[2019-02-13] MEDS: NEO/POLY/BAC (NEOSPORIN) OINT 15 GM TUBE TOP SCH ×2 (09:25→21:01)
[2019-02-13] MEDS: HYDROCORTISONE 1% OINT 30 GM TUBE TOP SCH ×2 (09:25→21:01)
[2019-02-13 15:48] VITALS: BP 114/72
[2019-02-13] MEDS: GABAPENTIN 600 MG (NEURONTIN) TAB PO SCH (18:07)
--- NOTE | 2019-02-13 18:59 | Progress Note ---
Standard Progress Note Progress Notes/Assess & Plan Date Seen by a Provider: Feb 13, 2019 Time Seen by a Provider: 18:55 Progress/Assessment & Plan 48-year-old female admitted with recurrence of herpetic neuralgia involving the right side of face on 01/24/2019. Last flare was in January 2018 requiring hospitalization. She has history of stage III malignant melanoma involving the right cervical lymph nodes and underwent right radical neck dissection followed by radiation therapy. She recurred to the abdominal wall and was resected and has been on surveillance since then without evidence of recurrence. 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 1) Patient complains of worsening burning sensation in her right posterior neck. Facial neuralgias are about the same, and there are no new vesicles. There does not seem to be any improvement in course of herpetic disease. Currently on PO acyclovir. Attempting to retrieve IV medication from other facilities. Plan to restart IV this evening or tomorrow when additional supplies are available. Alternate option is foscarnet. Continue current pain regimen and monitor. Continue Gabapentin 300 mg in morning and 600 mg at bedtime. 2) Continue fluconazole 100 mg daily for thrush, oral lesions resolved. Will complete course on 02/15. Advised her to continue warm saline gargles. 3) Continue stool softeners and osmotic laxatives; bisacodyl available prn. 4) Mild AST and ALT elevation. Persistent, unclear etiology. Will continue to monitor, labs every 3 days. 5) Patient complaining of persistent proximal muscle aches. Will d/c atorvastatin. May also improved LFTs. DEVI ALDANA MD Feb 13, 2019 18:59
[2019-02-13] MEDS: DOXEPIN 25 MG (SINEquan) CAP PO SCH (21:01)
[2019-02-13] MEDS: ACYCLOVIR INJECTION 500 MG in NS (IVPB) 100 ML IV SCH (21:02)
[2019-02-14] VITALS: BP 122/77
[2019-02-14] MEDS: fentaNYL INJECTION 100 MCG/2 ML AMP IVP PRN ×4 (02:53→22:36)
[2019-02-14] MEDS: ACYCLOVIR INJECTION 500 MG in NS (IVPB) 100 ML IV SCH ×3 (06:10→22:37)
[2019-02-14] MEDS: CATHETER FLUSH 10 ML SYR IV SCH ×3 (06:10→22:38)
[2019-02-14] MEDS: GABAPENTIN 300 MG (NEURONTIN) CAP PO SCH (06:10)
[2019-02-14 08:00] VITALS: BP 115/71
[2019-02-14] MEDS: DULoxetine 30 MG (CYMBALTA) CAP PO SCH (09:28)
[2019-02-14] MEDS: DOCUSATE SODIUM 100 MG (COLACE) CAP PO SCH ×2 (09:28→22:37)
[2019-02-14] MEDS: fluCOnazole (DIFLUCAN) 100 MG TAB PO SCH (09:28)
[2019-02-14] MEDS: PANTOPRAZOLE 40 MG (PROTONIX) TAB PO SCH (09:28)
[2019-02-14] MEDS: OXYBUTYNIN (DITROPAN) 5 MG TAB PO SCH (09:28)
[2019-02-14] MEDS: HYDROCORTISONE 1% OINT 30 GM TUBE TOP SCH ×2 (09:29→22:38)
[2019-02-14] MEDS: NEO/POLY/BAC (NEOSPORIN) OINT 15 GM TUBE TOP SCH ×2 (09:29→22:38)
--- NOTE | 2019-02-14 10:50 | NUR ---
provided prayer and Communion.
--- NOTE | 2019-02-14 12:37 | NUR ---
"RD ASSESSMENT PMHx: Recurrent herpes zoster; HTN; GERD; hypercholesterolemia; chronic UTI; melanoma PT INTERACTION: Pt was very asleep during both attempts to visit with her for follow-up. Note avg PO intake is 95% x4d, per chart review. Note last BM was 02/13 and pt currently on bowel regimen of colace BID, per chart review. There are no reports of episodes of nausea/vomiting per chart review. ABNORMAL NUTRITION-RELATED LAB VALUES LOW: Pro 6.0 HIGH: glu 127; AST 44; ALT 66 Est. kcal needs: 0529-3778 kcal | 15-18 kcal/kg Est. Pro needs: 82-102 g Pro | 0.8-1.0 g Pro/kg PES STATEMENT: Given pt's current PO intake, no nutrition diagnosis at this time (NO-1.1) INTERVENTION: Continue with current diet order of Regular diet. Will continue to follow and reassess as pt needs and status change. MONITOR/EVALUATE: PO Intake; Plan of Care; Hydration Status; Weight Status; Lab Values Geeta Song, , RD, LD"
[2019-02-14 16:50] VITALS: BP 128/81
--- NOTE | 2019-02-14 17:30 | Progress Note ---
Standard Progress Note Progress Notes/Assess & Plan Date Seen by a Provider: Feb 14, 2019 Time Seen by a Provider: 17:08 Progress/Assessment & Plan 48-year-old female admitted with recurrence of herpetic neuralgia involving the right side of face on 01/24/2019. Last flare was in January 2018 requiring hospitalization. She has history of stage III malignant melanoma involving the right cervical lymph nodes and underwent right radical neck dissection followed by radiation therapy. She recurred to the abdominal wall and was resected and has been on surveillance since then without evidence of recurrence. 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 1) Patient has had improvement in the burning sensation of her right ear and neck. The existing vesicular lesions are stable. IV acyclovir was resumed last night. If there is progression of disease, next step is foscarnet, per [facility] recommendations. Current pain regimen controlling neuralgia. Continue Gabapentin 300 mg in morning and 600 mg at bedtime. 2) Continue fluconazole 100 mg daily for thrush, oral lesions resolved. Will complete course on 02/15. Advised her to continue warm saline gargles. 3) Continue stool softeners and osmotic laxatives; bisacodyl available prn. 4) Mild AST and ALT elevation. Persistent, unclear etiology. Will continue to monitor, labs every 3 days. 5) Patient appears to be having some continued response to IV acyclovir but not to PO acyclovir. Symptoms monitored by neuralgia and vesicular rash. Patient is at risk for progression to herpes encephalitis if herpes zoster is not controlled; therefore it is necessary to continue IV acyclovir. Continue inpatient admission. DEVI ALDANA MD Feb 14, 2019 17:30
[2019-02-14] MEDS: GABAPENTIN 600 MG (NEURONTIN) TAB PO SCH (18:40)
--- NOTE | 2019-02-14 19:46 | Progress Note ---
Standard Progress Note Progress Notes/Assess & Plan Date Seen by a Provider: Feb 14, 2019 Time Seen by a Provider: 19:45 Progress/Assessment & Plan No new issues today. Pain under good control. Resumed IV Acyclovior yesterday and will continue for one more week. 48-year-old female admitted with recurrence of herpetic neuralgia involving the right side of face on 01/24/2019. Last flare was in January 2018 requiring hos pitalization. She has history of stage III malignant melanoma involving the right cervical lymph nodes and underwent right radical neck dissection followed by radiation therapy. She recurred to the abdominal wall and was resected and has been on surveillance since then without evidence of recurrence. 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 1) Patient has had improvement in the burning sensation of her right ear and neck. The existing vesicular lesions are stable. IV acyclovir was resumed last night. If there is progression of disease, next step is foscarnet, per [facility] recommendations. Current pain regimen controlling neuralgia. Continue Gabapentin 300 mg in morning and 600 mg at bedtime. 2) Continue fluconazole 100 mg daily for thrush, oral lesions resolved. Will complete course on 02/15. Advised her to continue warm saline gargles. 3) Continue stool softeners and osmotic laxatives; bisacodyl available prn. 4) Mild AST and ALT elevation. Persistent, unclear etiology. Will continue to monitor, labs every 3 days. 5) Patient appears to be having some continued response to IV acyclovir but not to PO acyclovir. Symptoms monitored by neuralgia and vesicular rash. Patient is at risk for progression to herpes encephalitis if herpes zoster is not controlled; therefore it is necessary to continue IV acyclovir. Continue inpatient admission. JAYJAY LICONA MD Feb 14, 2019 19:46
[2019-02-14] MEDS: DOXEPIN 25 MG (SINEquan) CAP PO SCH (22:37)
[2019-02-14] MEDS: POLYETHYLENE GLYCOL 17 GM (MIRALAX) PACK PO PRN (22:45)
[2019-02-15] VITALS: BP 116/75
[2019-02-15] MEDS: GABAPENTIN 300 MG (NEURONTIN) CAP PO SCH (06:13)
[2019-02-15] MEDS: ACYCLOVIR INJECTION 500 MG in NS (IVPB) 100 ML IV SCH ×3 (06:14→21:34)
[2019-02-15] MEDS: CATHETER FLUSH 10 ML SYR IV SCH ×3 (06:14→21:36)
[2019-02-15 07:18] LABS: BASOPHILS % (AUTO) 0 % (0-10); EOSINOPHILS # (AUTO) 0.3 10^3/uL (0.0-0.3); EOSINOPHILS % (AUTO) 6 % (0-10); HEMATOCRIT 36 % (35-52); LYMPHOCYTES # (AUTO) 1.7 X 10^3 (1.0-4.0); LYMPHOCYTES % (AUTO) 37 % (12-44); MEAN CORPUSCULAR HEMOGLOBIN 31 PG (25-34); MEAN CORPUSCULAR HGB CONC 33 G/DL (32-36); MEAN CORPUSCULAR VOLUME 93 FL (80-99); MEAN PLATELET VOLUME 8.7 FL (7.4-10.4); MONOCYTES # (AUTO) 0.5 X 10^3 (0.0-1.0); MONOCYTES % (AUTO) 11 % (0-12); NEUTROPHILS # (AUTO) 2.1 X 10^3 (1.8-7.8); NEUTROPHILS % (AUTO) 46 % (42-75); PLATELET COUNT 227 10^3/uL (130-400); RED CELL DISTRIBUTION WIDTH 13.4 % (10.0-14.5); WHITE BLOOD COUNT 4.6 10^3/uL (4.3-11.0)
[2019-02-15 07:49] LABS: ALANINE AMINOTRANSFERASE 62 U/L (0-55); ALBUMIN 3.6 GM/DL (3.2-4.5); ALKALINE PHOSPHATASE 65 U/L (40-136); BILIRUBIN,TOTAL 0.3 MG/DL (0.1-1.0); BUN/CREATININE RATIO 8; CARBON DIOXIDE 25 MMOL/L (21-32); CHLORIDE 104 MMOL/L (98-107); CREATININE SERUM 0.85 MG/DL (0.60-1.30); GFR ESTIMATED > 60; GLUCOSE 94 MG/DL (70-105); POTASSIUM 4.2 MMOL/L (3.6-5.0); SODIUM 139 MMOL/L (135-145); TOTAL PROTEIN 6.2 GM/DL (6.4-8.2)
[2019-02-15 08:00] VITALS: BP 131/79
[2019-02-15] MEDS: FENTANYL PATCH REMOVAL TP SCH (08:45)
[2019-02-15] MEDS: OXYBUTYNIN (DITROPAN) 5 MG TAB PO SCH (08:51)
[2019-02-15] MEDS: DULoxetine 30 MG (CYMBALTA) CAP PO SCH (08:51)
[2019-02-15] MEDS: PANTOPRAZOLE 40 MG (PROTONIX) TAB PO SCH (08:51)
[2019-02-15] MEDS: fentaNYL INJECTION 100 MCG/2 ML AMP IVP PRN ×3 (08:52→23:06)
[2019-02-15] MEDS: fluCOnazole (DIFLUCAN) 100 MG TAB PO SCH (08:52)
[2019-02-15] MEDS: fentaNYL PATCH 12 MCG (DURAGESIC) TD SCH (08:52)
[2019-02-15] MEDS: DOCUSATE SODIUM 100 MG (COLACE) CAP PO SCH ×2 (08:54→21:34)
[2019-02-15] MEDS: HYDROCORTISONE 1% OINT 30 GM TUBE TOP SCH ×2 (08:55→21:36)
[2019-02-15] MEDS: NEO/POLY/BAC (NEOSPORIN) OINT 15 GM TUBE TOP SCH ×2 (08:55→21:36)
--- NOTE | 2019-02-15 13:46 | Progress Note ---
Standard Progress Note Progress Notes/Assess & Plan Date Seen by a Provider: Feb 15, 2019 Time Seen by a Provider: 13:44 Progress/Assessment & Plan No new issues today. No new lesions. Pain under good control. On IV Acyclovior and will continue for one more week. Slightly elevated LFTs slowly coming down. 48-year-old female admitted with recurrence of herpetic neuralgia involving the right side of face on 01/24/2019. Last flare was in January 2018 requiring hospitalization. She has history of stage III malignant melanoma involving the right cervical lymph nodes and underwent right radical neck dissection followed by radiation therapy. She recurred to the abdominal wall and was resected and has been on surveillance since then without evidence of recurrence. 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 1) Patient has had improvement in the burning sensation of her right ear and neck. The existing vesicular lesions are stable. IV acyclovir was resumed last night. If there is progression of disease, next step is foscarnet, per [facility] recommendations. Current pain regimen controlling neuralgia. Continue Gabapentin 300 mg in morning and 600 mg at bedtime. 2) Continue fluconazole 100 mg daily for thrush, oral lesions resolved. Will complete course on 02/15. Advised her to continue warm saline gargles. 3) Continue stool softeners and osmotic laxatives; bisacodyl available prn. 4) Mild AST and ALT elevation. Persistent, unclear etiology. Will continue to monitor, labs every 3 days. 5) Patient appears to be having some continued response to IV acyclovir but not to PO acyclovir. Symptoms monitored by neuralgia and vesicular rash. Patient is at risk for progression to herpes encephalitis if herpes zoster is not controlled; therefore it is necessary to continue IV acyclovir. Continue inpati ent admission. Focused Exam Respiratory: No Accessory Muscle Use, No Respiratory Distress JAYJAY LICONA MD Feb 15, 2019 13:46
[2019-02-15 16:00] VITALS: BP 119/82
[2019-02-15] MEDS: GABAPENTIN 600 MG (NEURONTIN) TAB PO SCH (16:18)
[2019-02-15] MEDS: DOXEPIN 25 MG (SINEquan) CAP PO SCH (21:34)
[2019-02-16 00:16] VITALS: BP 137/85
[2019-02-16] MEDS: CATHETER FLUSH 10 ML SYR IV SCH ×3 (04:48→21:31)
[2019-02-16] MEDS: ACYCLOVIR INJECTION 500 MG in NS (IVPB) 100 ML IV SCH ×3 (04:48→21:30)
[2019-02-16] MEDS: GABAPENTIN 300 MG (NEURONTIN) CAP PO SCH (04:48)
[2019-02-16] MEDS: fentaNYL INJECTION 100 MCG/2 ML AMP IVP PRN ×3 (05:00→15:48)
[2019-02-16 07:37] VITALS: BP 106/70
[2019-02-16] MEDS: DOCUSATE SODIUM 100 MG (COLACE) CAP PO SCH ×2 (08:02→21:30)
[2019-02-16] MEDS: NEO/POLY/BAC (NEOSPORIN) OINT 15 GM TUBE TOP SCH ×2 (08:03→21:30)
[2019-02-16] MEDS: DULoxetine 30 MG (CYMBALTA) CAP PO SCH (08:03)
[2019-02-16] MEDS: PANTOPRAZOLE 40 MG (PROTONIX) TAB PO SCH (08:03)
[2019-02-16] MEDS: OXYBUTYNIN (DITROPAN) 5 MG TAB PO SCH (08:03)
[2019-02-16] MEDS: HYDROCORTISONE 1% OINT 30 GM TUBE TOP SCH ×2 (08:04→21:31)
[2019-02-16] MEDS: POLYETHYLENE GLYCOL 17 GM (MIRALAX) PACK PO PRN (08:16)
[2019-02-16] MEDS: GABAPENTIN 600 MG (NEURONTIN) TAB PO SCH (15:48)
[2019-02-16 16:00] VITALS: BP 113/75
[2019-02-16] MEDS ORDERED: CALAMINE/PRAMOXINE (CALADRYL) 180 ML TOP PRN (18:30)
[2019-02-16] MEDS ORDERED: fentaNYL INJECTION 100 MCG/2 ML AMP IVP ONE (18:30)
--- NOTE | 2019-02-16 18:46 | NUR ---
patient c/o of burning/pain/tingling sensation to her right side , patient requested extra pain med and calamine lotion - Dr. Burton notified received orders for one time order now 50mcg fentanyl and calamine lotion
--- NOTE | 2019-02-16 20:09 | Progress Note ---
Standard Progress Note Progress Notes/Assess & Plan Date Seen by a Provider: Feb 16, 2019 Time Seen by a Provider: 20:07 Progress/Assessment & Plan Pt got an extra dose of pain medication and is now comfortably resting. On IV Acyclovior and will continue for one more week. Slightly elevated LFTs slowly coming down. 48-year-old female admitted with recurrence of herpetic neuralgia involving the right side of face on 01/24/2019. Last flare was in January 2018 requiring hospitalization. She has history of stage III malignant melanoma involving the right cervical lymph nodes and underwent right radical neck dissection followed by radiation therapy. She recurred to the abdominal wall and was resected and has been on surveillance since then without evidence of recurrence. 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 1) Patient has had improvement in the burning sensation of her right ear and neck. The existing vesicular lesions are stable. IV acyclovir was resumed last night. If there is progression of disease, next step is foscarnet, per [facility] recommendations. Current pain regimen controlling neuralgia. Continue Gabapentin 300 mg in morning and 600 mg at bedtime. 2) Continue warm saline gargles. 3) Continue stool softeners and osmotic laxatives; bisacodyl available prn. 4) Mild AST and ALT elevation. Persistent, unclear etiology. Will continue to monitor, labs every 3 days. 5) Patient appears to be having some continued response to IV acyclovir but not to PO acyclovir. JAYJAY LICONA MD Feb 16, 2019 20:09
[2019-02-16] MEDS: DOXEPIN 25 MG (SINEquan) CAP PO SCH (21:30)
[2019-02-17] VITALS: BP 122/80
[2019-02-17] MEDS: fentaNYL INJECTION 100 MCG/2 ML AMP IVP PRN ×4 (00:08→21:20)
[2019-02-17] MEDS: CATHETER FLUSH 10 ML SYR IV SCH ×3 (05:50→21:41)
[2019-02-17] MEDS: ACYCLOVIR INJECTION 500 MG in NS (IVPB) 100 ML IV SCH ×3 (05:50→21:40)
[2019-02-17] MEDS: GABAPENTIN 300 MG (NEURONTIN) CAP PO SCH (05:50)
[2019-02-17 08:00] VITALS: BP 120/65
[2019-02-17] MEDS: DULoxetine 30 MG (CYMBALTA) CAP PO SCH (09:41)
[2019-02-17] MEDS: DOCUSATE SODIUM 100 MG (COLACE) CAP PO SCH ×2 (09:41→21:09)
[2019-02-17] MEDS: PANTOPRAZOLE 40 MG (PROTONIX) TAB PO SCH (09:41)
[2019-02-17] MEDS: OXYBUTYNIN (DITROPAN) 5 MG TAB PO SCH (09:41)
[2019-02-17] MEDS: NEO/POLY/BAC (NEOSPORIN) OINT 15 GM TUBE TOP SCH ×2 (09:42→21:10)
[2019-02-17] MEDS: HYDROCORTISONE 1% OINT 30 GM TUBE TOP SCH ×2 (09:42→21:10)
--- NOTE | 2019-02-17 14:39 | Progress Note ---
Standard Progress Note Progress Notes/Assess & Plan Date Seen by a Provider: Feb 17, 2019 Time Seen by a Provider: 14:34 Progress/Assessment & Plan Pt is comfortable sleeping. I did not wake her up. No new issues per nurse report. On IV Acyclovior. Dr Devlin to determine the course of the IV Acyclovir. He will be back 02/20/2019. According to the patient she normally needs 3-4 weeks of IV Acyclovir. Slightly elevated LFTs slowly coming down. 48-year-old female admitted with recurrence of herpetic neuralgia involving the right side of face on 01/24/2019. Last flare was in January 2018 requiring hospitalization. She has history of stage III malignant melanoma involving the right cervical lymph nodes and underwent right radical neck dissection followed by radiation therapy. She recurred to the abdominal wall and was resected and has been on surveillance since then without evidence of recurrence. 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 1) Patient has had improvement in the burning sensation of her right ear and neck. The existing vesicular lesions are stable. IV acyclovir was resumed last night. If there is progression of disease, next step is foscarnet, per [facility] recommendations. Current pain regimen controlling neuralgia. Continue Gabapentin 300 mg in morning and 600 mg at bedtime. 2) Patient the same pain medication. 3) Continue stool softeners and osmotic laxatives; bisacodyl available prn. 4) Mild AST and ALT elevation. Slowly resolving. JAYJAY LICONA MD Feb 17, 2019 14:39
--- NOTE | 2019-02-17 14:43 | NUR ---
provided prayer and Communion.
[2019-02-17 15:17] VITALS: BP 128/85
[2019-02-17] MEDS: GABAPENTIN 600 MG (NEURONTIN) TAB PO SCH (18:44)
[2019-02-17] MEDS: DOXEPIN 25 MG (SINEquan) CAP PO SCH (21:10)
[2019-02-17] MEDS ORDERED: NS (IVPB) 100 ML ONE (21:24)
[2019-02-17] MEDS ORDERED: ACYCLOVIR 500 MG/10 ML INJ (ZOVIRAX) VIAL IV ONE (21:24)
[2019-02-17 23:29] VITALS: BP 123/66
[2019-02-18] MEDS ORDERED: ACYCLOVIR 500 MG/10 ML INJ (ZOVIRAX) VIAL IV ONE (04:39)
[2019-02-18] MEDS ORDERED: NS (IVPB) 100 ML ONE (04:40)
[2019-02-18] MEDS: CATHETER FLUSH 10 ML SYR IV SCH ×3 (05:38→22:33)
[2019-02-18] MEDS: ACYCLOVIR INJECTION 500 MG in NS (IVPB) 100 ML IV SCH ×3 (05:38→22:33)
[2019-02-18] MEDS: GABAPENTIN 300 MG (NEURONTIN) CAP PO SCH (06:33)
[2019-02-18 08:00] VITALS: BP 131/87
[2019-02-18] MEDS: HYDROCORTISONE 1% OINT 30 GM TUBE TOP SCH ×2 (09:00→20:50)
[2019-02-18] MEDS: NEO/POLY/BAC (NEOSPORIN) OINT 15 GM TUBE TOP SCH ×2 (09:00→20:49)
[2019-02-18] MEDS: DULoxetine 30 MG (CYMBALTA) CAP PO SCH (09:10)
[2019-02-18] MEDS: DOCUSATE SODIUM 100 MG (COLACE) CAP PO SCH ×2 (09:10→20:48)
[2019-02-18] MEDS: FENTANYL PATCH REMOVAL TP SCH (09:10)
[2019-02-18] MEDS: fentaNYL PATCH 12 MCG (DURAGESIC) TD SCH (09:11)
[2019-02-18] MEDS: PANTOPRAZOLE 40 MG (PROTONIX) TAB PO SCH (09:11)
[2019-02-18] MEDS: OXYBUTYNIN (DITROPAN) 5 MG TAB PO SCH (09:11)
--- NOTE | 2019-02-18 09:41 | Progress Note ---
Standard Progress Note Progress Notes/Assess & Plan Date Seen by a Provider: Feb 18, 2019 Time Seen by a Provider: 09:36 Progress/Assessment & Plan Pt is comfortable, no new lesions. I discussed with her of stopping IV Acyclovir and discharge plan. She stated that in the past, she needs to have a couple days of oral Acyclovir 800mg bid to make sure the lesions will not flare before she can go home. I will change IV Acyclovir to PO tomorrow morning and hopefully discharge her home this Sunday. Slightly elevated LFTs slowly coming down. 48-year-old female admitted with recurrence of herpetic neuralgia involving the right side of face on 01/24/2019. Last flare was in January 2018 requiring hospitalization. She has history of stage III malignant melanoma involving the right cervical lymph nodes and underwent right radical neck dissection followed by radiation therapy. She recurred to the abdominal wall and was resected and has been on surveillance since then without evidence of recurrence. 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 1) Patient has had improvement in the burning sensation of her right ear and neck. The existing vesicular lesions are stable. Current pain regimen controlling neuralgia. Continue Gabapentin 300 mg in morning and 600 mg at bedtime. 2) Patient the same pain medication. 3) Continue stool softeners and osmotic laxatives; bisacodyl available prn. 4) Mild AST and ALT elevation. Slowly resolving. Focused Exam Respiratory: No Accessory Muscle Use, No Respiratory Distress Skin: other (No new lesions. Old lesions fading off) JAYJAY LICONA MD Feb 18, 2019 09:41
[2019-02-18] MEDS: fentaNYL INJECTION 100 MCG/2 ML AMP IVP PRN (13:06)
--- NOTE | 2019-02-18 13:39 | NUR ---
CM/SS visited with the patient. This CM/SS introduced self to patient and assessed for any needs. The patient states that she has been here for a long time and is ready to go home. The patient has had a great support system during her hospital stay with her , mother, and 2 children. 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 The patient stated that she does not currently have any needs. Will continue to follow.
[2019-02-18 16:00] VITALS: BP 128/84
[2019-02-18] MEDS: GABAPENTIN 600 MG (NEURONTIN) TAB PO SCH (18:59)
--- NOTE | 2019-02-18 20:17 | NUR ---
BOTH PO ACYCLOVIR AND IV ACYCLOVIR ON PT EMAR, DR LICONA ORDERED TO GIVE IV DOSE THIS EVENING AND START PO ACYCLOVIR TOMORROW AM
[2019-02-18] MEDS: DOXEPIN 25 MG (SINEquan) CAP PO SCH (20:48)
[2019-02-18] MEDS: ACYCLOVIR 400 MG TABLET (ZOVIRAX) PO SCH (21:28)
[2019-02-19 00:28] VITALS: BP 116/80
[2019-02-19] MEDS: GABAPENTIN 300 MG (NEURONTIN) CAP PO SCH (06:42)
[2019-02-19] MEDS: CATHETER FLUSH 10 ML SYR IV SCH ×3 (06:42→20:34)
[2019-02-19] MEDS: fentaNYL INJECTION 100 MCG/2 ML AMP IVP PRN ×3 (06:51→20:39)
[2019-02-19 08:00] VITALS: BP 109/74
[2019-02-19] MEDS: DULoxetine 30 MG (CYMBALTA) CAP PO SCH (08:36)
[2019-02-19] MEDS: OXYBUTYNIN (DITROPAN) 5 MG TAB PO SCH (08:36)
[2019-02-19] MEDS: ACYCLOVIR 400 MG TABLET (ZOVIRAX) PO SCH ×2 (08:36→20:34)
[2019-02-19] MEDS: HYDROCORTISONE 1% OINT 30 GM TUBE TOP SCH ×2 (08:37→20:34)
[2019-02-19] MEDS: NEO/POLY/BAC (NEOSPORIN) OINT 15 GM TUBE TOP SCH ×2 (08:37→20:34)
[2019-02-19] MEDS: PANTOPRAZOLE 40 MG (PROTONIX) TAB PO SCH (08:37)
[2019-02-19] MEDS: DOCUSATE SODIUM 100 MG (COLACE) CAP PO SCH ×2 (08:37→20:33)
--- NOTE | 2019-02-19 13:27 | Progress Note ---
Standard Progress Note Progress Notes/Assess & Plan Date Seen by a Provider: Feb 19, 2019 Time Seen by a Provider: 13:27 Progress/Assessment & Plan Pt is comfortable, no new lesions. I discussed with her of stopping IV Acyclovir and discharge plan yesterday. She stated that in the past, she needs to have a couple days of oral Acyclovir 800mg bid to make sure the lesions will not flare before she can go home. She started oral Acyclovir today and her IV Acyclovir finished last night. Hopefully she can be discharged her home tomorrow or this Sunday. Slightly elevated LFTs slowly coming down. Dr Devlin will be back tomorrow to decide the discharge either or Sunday. 48-year-old female admitted with recurrence of herpetic neuralgia involving the right side of face on 01/24/2019. Last flare was in January 2018 requiring hospitalization. She has history of stage III malignant melanoma involving the right cervical lymph nodes and underwent right radical neck dissection followed by radiation therapy. She recurred to the abdominal wall and was resected and has been on surveillance since then without evidence of recurrence. 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 1) Patient has had improvement in the burning sensation of her right ear and neck. The existing vesicular lesions are stable. Current pain regimen controlling neuralgia. Continue Gabapentin 300 mg in morning and 600 mg at bedtime. 2) Patient the same pain medication. 3) Continue stool softeners and osmotic laxatives; bisacodyl available prn. 4) Mild AST and ALT elevation. Slowly resolving. JAYJAY LICONA MD Feb 19, 2019 13:27
[2019-02-19 16:20] VITALS: BP 132/81
[2019-02-19] MEDS: GABAPENTIN 600 MG (NEURONTIN) TAB PO SCH (17:57)
[2019-02-19] MEDS: DOXEPIN 25 MG (SINEquan) CAP PO SCH (20:33)
--- OUTSIDE RECORDS SUMMARY | 2019-02-19 22:02 | XMS REPORT | CCD ---
Author Author Lo Flor D.O. Organization [facility] Address [address] [place] [address] Phone Care Team Providers Care Care Transitions Nurse Name Role Phone Rosaline Flor D.O., PP Unavailable CCM Unavailable Summary Purpose Interface Exchange Insurance Providers Payer name Policy type / Coverage type Covered alliance party ID Effective Begin Date Effective End Date Blue Cross Blue Shield Blue Cross/Bl ue Shield [id number] Un known Family History Family History data not found Social History Social History Element Codes Description Effective Dates Marital status Unknown M arried 12/01/2015 Number of children Unknown 2 12/01/2015 Employment Unknown Disab ility 12/01/[address]: 506450758 Has never smoked or chewed tobacco 12/01/[address]: 381048 Currently drinks alcohol 12/01/2015 Frequency of drinks SNOMED CT: 070386957 Drinks rarely 12/01/2015 Has the patient ever used illegal drugs? Unknown Has never used illegal drugs 016 Allergies, Adverse Reactions, Alerts Substance Reaction Codes Entered Date Inactivated Date Status * NO KNOWN FOOD CHARLENE RGIES Unknown 12/01/2015 No Inactive Date Active * NO KNOWN ENVIRONME NTAL ALLERGIES Unknown 12/01/2015 No Inactive Date Active _ Unknown 12/01/2015 No Inactive Date Active VANCOMYCIN AND DERIV ATIVES Unknown 12/01/2015 No Inactive Date Active Past Medical History Illness Codes Condition Status Onset Date Resolved Date Acute sinusitis, uns pecified ICD-9: 461.9 ICD-10: J01.90 Active 02/04/2018 Unknown Disorder of the skin and subcutaneous tissue, unspecified ICD-9: 709.9 ICD-10: L98.9 Active 04/01/2018 Unknown Other acute sinusitis ICD-9: 461.8 ICD-10: J01.80 Active 04/01/2018 Unknown Other insomnia ICD-9: 327.09 ICD-10: G47.09 Active 04/01/2018 Unknown Pain in right wrist ICD- 9: 719.43 ICD-10: M25.531 Active 04/01/2018 Unknown Postherpetic trigemi nal neuralgia ICD-9: 053.12 ICD-10: B02.22 Active 10/30/2016 Unknown Encounter for screen ing for cardiovascular disorders ICD-9: V81.2 ICD-10: Z13.6 Active 02/04/2018 Unknown Encounter for screen ing for lipoid disorders ICD-9: V77.91 ICD-10: Z13.220 Active 02/04/2018 Unknown Left lower quadrant pain ICD-9: 789.04 ICD-10: R10.32 Active 01/18/2018 Unknown Urgency of urination ICD-9: 788.63 ICD-10: R39.15 Active 01/18/2018 Unknown Benign paroxysmal ve rtigo, right ear ICD-9: 386.11 ICD-10: H81.11 Active 08/27/2017 Unknown Dizziness and giddiness ICD-9: 780.4 ICD-10: R42 Active 01/31/2017 Unknown Generalized abdomina l pain ICD-9: 789.00 ICD-10: R10.84 Active 05/07/2017 Unknown Headache ICD-9: 784.0 ICD-10: R51 Active 11/29/2016 Unknown Nausea ICD-9: 787.02 ICD-10: R11.0 Active 05/07/2017 Unknown Unspecified adverse effect of drug or medicament, initial encounter ICD-9: 995.20 ICD-10: T88.7XXA Active 05/07/2017 Unknown Stricture of artery ICD- 9: 447.1 ICD-10: I77.1 Active 04/02/2017 Unknown Tinnitus, right ear ICD- 9: 388.30 ICD-10: H93.11 Active 03/26/2017 Unknown Personal history of malignant melanoma of skin ICD-9: V10.82 ICD-10: Z85.820 Active 11/29/2016 Unknown Tinnitus, right ear ICD- 9: 388.31 ICD-10: H93.11 Active 03/06/2017 Unknown Major depressive dis order, recurrent, unspecified ICD-9: 296.30 ICD-10: F33.9 Active 12/22/2015 Unknown Herpesviral vesicula r dermatitis ICD-9: 054.9 ICD-10: B00.1 Active 01/23/2016 Unknown URI, ACUTE ICD-9: 465.9 ICD-10: J06.9 Active 10/30/2016 Unknown Unspecified perichon dritis of right external ear ICD-9: 380.00 ICD-10: H61.001 Active 06/27/2016 Unknown Vitamin D deficiency , unspecified ICD-9: 268.9 ICD-10: E55.9 Active 01/23/2016 Unknown Other polyuria ICD-9: 788.42 ICD-10: R35.8 Active 03/02/2016 Unknown Fibromyalgia ICD-9: 729.1 ICD-10: M79.7 Active 01/23/2016 Unknown Opioid dependence, u ncomplicated ICD-9: 304.92 ICD-10: F11.20 Active 12/22/2015 Unknown Primary insomnia ICD-9: 307.42 ICD-10: F51.01 Active 11/30/2015 Unknown Viral intestinal inf ection, unspecified ICD-9: 008.8 ICD-10: A08.4 Active 11/30/2015 Unknown Problems Condition Codes Effectiv e Dates Condition Status Acute sinusitis, uns pecified ICD-9: 461.9 ICD-10: J01.90 02/04/2018 Active Disorder of the skin and subcutaneous tissue, unspecified ICD-9: 709.9 ICD-10: L98.9 04/01/2018 Active Other acute sinusitis ICD-9: 461.8 ICD-10: J01.80 04/01/2018 Active Other insomnia ICD-9: 327.09 ICD-10: G47.09 04/01/2018 Active Pain in right wrist ICD- 9: 719.43 ICD-10: M25.531 04/01/2018 Active Postherpetic trigemi nal neuralgia ICD-9: 053.12 ICD-10: B02.22 10/30/2016 Active Encounter for screen ing for cardiovascular disorders ICD-9: V81.2 ICD-10: Z13.6 02/04/2018 Active Encounter for screen ing for lipoid disorders ICD-9: V77.91 ICD-10: Z13.220 02/04/2018 Active Left lower quadrant pain ICD-9: 789.04 ICD-10: R10.32 01/18/2018 Active Urgency of urination ICD-9: 788.63 ICD-10: R39.15 01/18/2018 Active Benign paroxysmal ve rtigo, right ear ICD-9: 386.11 ICD-10: H81.11 08/27/2017 Active Dizziness and giddiness ICD-9: 780.4 ICD-10: R42 01/31/2017 Active Generalized abdomina l pain ICD-9: 789.00 ICD-10: R10.84 05/07/2017 Active Headache ICD-9: 784.0 ICD-10: R51 11/29/2016 Active Nausea ICD-9: 787.02 ICD-10: R11.0 05/07/2017 Active Unspecified adverse effect of drug or medicament, initial encounter ICD-9: 995.20 ICD-10: T88.7XXA 05/07/2017 Active Stricture of artery ICD- 9: 447.1 ICD-10: I77.1 04/02/2017 Active Tinnitus, right ear ICD- 9: 388.30 ICD-10: H93.11 03/26/2017 Active Personal history of malignant melanoma of skin ICD-9: V10.82 ICD-10: Z85.820 11/29/2016 Active Tinnitus, right ear ICD- 9: 388.31 ICD-10: H93.11 03/06/2017 Active Major depressive dis order, recurrent, unspecified ICD-9: 296.30 ICD-10: F33.9 12/22/2015 Active Herpesviral vesicula r dermatitis ICD-9: 054.9 ICD-10: B00.1 01/23/2016 Active URI, ACUTE ICD-9: 465.9 ICD-10: J06.9 10/30/2016 Active Unspecified perichon dritis of right external ear ICD-9: 380.00 ICD-10: H61.001 06/27/2016 Active Vitamin D deficiency , unspecified ICD-9: 268.9 ICD-10: E55.9 01/23/2016 Active Other polyuria ICD-9: 788.42 ICD-10: R35.8 03/02/2016 Active Fibromyalgia ICD-9: 729.1 ICD-10: M79.7 01/23/2016 Active Opioid dependence, u ncomplicated ICD-9: 304.92 ICD-10: F11.20 12/22/2015 Active Primary insomnia ICD-9: 307.42 ICD-10: F51.01 11/30/2015 Active Viral intestinal inf ection, unspecified ICD-9: 008.8 ICD-10: A08.4 11/30/2015 Active Medications Medication Codes Instruc tions Start Date Stop Date Sta tus Fill Instructions amitriptyline 25 mg tablet RxNorm: 435643 1 Tablet(s) PO QHS 10/23/2018 11/21/2018 Active Due for routine follow up atorvastatin 10 mg t ablet RxNorm: 937112 1 Tablet(s) PO QD Due for updated labs 10/17/2018 11/15/2018 Ac tive Due for updated labs before 90 day suppl y oxybutynin chloride 5 mg tablet RxNorm: 942596 TAKE 1 TABLET BY MOUT H EVERY DAY AT BEDTIME 08/26/2018 No Stop Date Active amitriptyline 25 mg tablet RxNorm: 051241 1 Tablet(s) PO QHS 07/10/2018 10/07/2018 Inactive atorvastatin 10 mg t ablet RxNorm: 652170 TAKE 1 TABLET BY MOUT H ONCE DAILY 07/10/2018 10/16/2018 In active gabapentin 600 mg ta blet RxNorm: 049701 1 Tablet(s) PO TID 05/01/2018 05/30/2018 Inactive acyclovir 400 mg tablet RxNorm: 449769 1 Tablet(s) PO BID 04/01/2018 12/26/2018 Active mupirocin 2 % topica l ointment RxNorm: 857321 1 Application TOP TID 04/01/2018 04/10/2018 Inactive amitriptyline 25 mg tablet RxNorm: 621845 1 Tablet(s) PO QHS 04/01/2018 06/29/2018 Inactive oxybutynin chloride 5 mg tablet RxNorm: 797453 1 Tablet(s) PO QHS 04/01/2018 07/29/2018 Inactive doxycycline hyclate 100 mg capsule RxNorm: 3940776 1 Capsule(s) PO BID 03/14/2018 03/20/2018 In active atorvastatin 10 mg t ablet RxNorm: 272202 1 Tablet(s) PO QD 02/05/2018 05/05/2018 Inactive atorvastatin 10 mg t ablet RxNorm: 154753 1 Tablet(s) PO QD 02/05/2018 02/04/2018 Inactive pseudoephedrine 30 m g tablet RxNorm: 3778973 1-2 Tablet(s) PO Q6H 02/04/2018 03/05/2018 Inactive cefdinir 300 mg capsule RxNorm: 555662 2 Capsule(s) PO QD 02/04/2018 02/13/2018 Inactive oxybutynin chloride 5 mg tablet RxNorm: 322062 1 Tablet(s) PO QHS 01/23/2018 01/22/2018 Inactive oxybutynin chloride 5 mg tablet RxNorm: 865484 1 Tablet(s) PO QHS 01/23/2018 02/21/2018 Inactive duloxetine 60 mg cap ilda,delayed release RxNorm: 062583 1 Capsule(s) PO QD 01/18/2018 10/14/2018 In active Valtrex 1 gram tablet RxNorm: 917189 1 Tablet(s) PO TID 12/27/2017 12/26/2017 Inactive Lunesta 2 mg tablet RxNorm: 639106 TAKE 1 TABLET BY MOUTH ONCE DAILY AT BED TIME 12/27/2017 03/13/2018 Inactive meclizine 25 mg tablet RxNorm: 856591 1/2-1 Tablet(s) PO Q6H as needed 08/27/2017 03/13/2018 In active duloxetine 60 mg cap ilda,delayed release RxNorm: 692891 1 Capsule(s) PO QD 08/23/2017 11/20/2017 In active Lunesta 2 mg tablet RxNorm: 560367 Tablet(s) TAKE ONE TABLET BY MOUTH AT BE DTIME 08/23/2017 12/27/2017 Inactive Valtrex 1 gram tablet RxNorm: 488019 1 Tablet(s) PO TID 07/02/2017 12/26/2017 Inactive propranolol 60 mg ta blet RxNorm: 005905 1 Tablet(s) PO QHS 06/20/2017 08/26/2017 Inactive Lunesta 2 mg tablet RxNorm: 356126 Tablet(s) TAKE ONE TABLET BY MOUTH AT BE DTIME 06/11/2017 08/22/2017 Inactive acyclovir 200 mg cap ilda RxNorm: 173573 Capsule(s) 2 Capsule( s) BID 2 Capsule(s) PO BID 06/01/2017 07/01/2017 Inactive acyclovir 200 mg cap ilda RxNorm: 680693 Capsule(s) 2 Capsule( s) BID 2 Capsule(s) PO BID 06/01/2017 05/31/2017 Inactive acyclovir 200 mg cap ilda RxNorm: 983756 2 Capsule(s) BID 2 Ca psule(s) PO BID 04/20/2017 06/01/2017 In active duloxetine 60 mg cap ilda,delayed release RxNorm: 609274 1 Capsule(s) PO QD 04/19/2017 08/23/2017 In active propranolol 60 mg ta blet RxNorm: 577220 1 Tablet(s) PO QHS 04/10/2017 06/20/2017 Inactive Lunesta 2 mg tablet RxNorm: 923894 TAKE ONE TABLET BY MOUTH AT BEDTIME 04/09/2017 06/10/2017 In active propranolol 60 mg ta blet RxNorm: 277430 1 Tablet(s) PO QHS 03/06/2017 04/04/2017 Inactive Lunesta 2 mg tablet RxNorm: 304823 1 Tablet(s) PO QHS 01/31/2017 04/09/2017 Inactive acyclovir 200 mg cap ilda RxNorm: 662260 2 Capsule(s) BID 2 Ca psule(s) PO BID 01/31/2017 03/31/2017 In active propranolol 40 mg ta blet RxNorm: 257834 1 Tablet(s) PO BID 12/26/2016 12/26/2016 Inactive amitriptyline 25 mg tablet RxNorm: 282583 1 Tablet(s) PO QHS 12/12/2016 12/25/2016 Inactive amitriptyline 25 mg tablet RxNorm: 490459 1 Tablet(s) PO QHS 12/06/2016 12/11/2016 Inactive amitriptyline 25 mg tablet RxNorm: 393696 1 Tablet(s) PO QHS 12/06/2016 12/05/2016 Inactive amitriptyline 10 mg tablet RxNorm: 965694 1 Tablet(s) PO QHS 11/29/2016 12/05/2016 Inactive duloxetine 60 mg cap ilda,delayed release RxNorm: 289507 1 Capsule(s) PO QD 11/29/2016 04/19/2017 In active Cymbalta 20 mg capsu le,delayed release RxNorm: 188087 2 Capsule(s) PO QD 11/29/2016 11/29/2016 In active Mobic 15 mg tablet RxNorm: 558731 1 Tablet(s) PO QD 11/16/2016 11/28/2016 Inactive acyclovir 200 mg cap ilda RxNorm: 573928 2 Capsule(s) BID 2 Ca psule(s) PO BID 11/15/2016 01/13/2017 In active Cymbalta 30 mg capsu le,delayed release RxNorm: 599923 1 Capsule(s) PO QD 10/30/2016 11/28/2016 In active acyclovir 200 mg cap ilda RxNorm: 953085 2 Capsule(s) BID 2 Ca psule(s) PO BID 08/01/2016 09/29/2016 In active Cymbalta 20 mg capsu le,delayed release RxNorm: 769879 1 Capsule(s) PO QD 08/01/2016 2016 In active Cymbalta 20 mg capsu le,delayed release RxNorm: 086611 1 Capsule(s) PO QD 06/27/2016 07/31/2016 In active acyclovir 200 mg cap ilda RxNorm: 414651 2 Capsule(s) PO BID 04/12/2016 06/10/2016 Inactive Cymbalta 60 mg capsu le,delayed release RxNorm: 064453 1 Capsule(s) PO QD 02/28/2016 06/26/2016 In active amitriptyline 50 mg tablet RxNorm: 546647 1 Tablet(s) PO QHS fo r sleep 02/28/2016 06/26/2016 In active Lyrica 150 mg capsule RxNorm: 027841 TAKE ONE CAPSULE BY MOUTH TWICE DAILY 02/04/2016 02/04/2016 In active Lyrica 150 mg capsule RxNorm: 971210 TAKE ONE CAPSULE BY MOUTH TWICE DAILY 02/04/2016 06/26/2016 In active meloxicam 7.5 mg tablet RxNorm: 345813 1 Tablet(s) PO QD 01/26/2016 06/26/2016 Inactive acyclovir 800 mg tablet RxNorm: 074847 1 Tablet(s) PO 5x day 01/24/2016 12/27/2017 Inactive acyclovir 200 mg cap ilda RxNorm: 136799 2 Capsule(s) PO BID 01/18/2016 03/17/2016 Inactive Lyrica 150 mg capsule RxNorm: 451297 TAKE ONE CAPSULE BY MOUTH TWICE DAILY 01/04/2016 02/04/2016 In active Cymbalta 60 mg capsu le,delayed release RxNorm: 987451 1 Capsule(s) PO QD 12/23/2015 02/20/2016 In active Cymbalta 30 mg capsu le,delayed release RxNorm: 204143 1 Capsule(s) PO QD fo r 1 week then increase to 2 po daily 12/13/2015 12/22/2015 Inactive acyclovir 200 mg cap ilda RxNorm: 777567 2 Capsule(s) PO BID 12/10/2015 01/08/2016 Inactive Cymbalta 30 mg capsu le,delayed release RxNorm: 356222 1 Capsule(s) PO QD fo r 1 week then increase to 2 po daily 12/01/2015 12/12/2015 Inactive Lyrica 150 mg capsule RxNorm: 228427 1 Capsule(s) PO BID 12/01/2015 01/04/2016 Inactive Vitamin D2 50,000 un it capsule RxNorm: 978383 1 Capsule(s) PO QW 12/01/2015 01/23/2016 Inactive MS Contin 30 mg tabl et,extended release RxNorm: 491605 1 Tablet(s) PO BID (m orning and 1 pm) 12/01/2015 12/01/2015 Inactive amitriptyline 50 mg tablet RxNorm: 251926 1 Tablet(s) PO QHS fo r sleep 12/01/2015 02/27/2016 In active melatonin 10 mg tablet RxNorm: 9031551 1 Tablet(s) PO QD No Start Date Active acyclovir 800 mg tablet RxNorm: 368987 1 Tablet(s) PO five times daily No Start Date Active omega 3 500 mg-dha-e pa-B12 500 mcg-FA 1 mg-B6 12.5 mg- phytosterol cap RxNorm: 476559 1 Capsule(s) PO QD No Start Date Active carbamazepine 200 mg tablet RxNorm: 955574 1 Tablet(s) PO BID No Start Date Active Sudogest 30 mg tablet RxNorm: 1219047 1 Tablet(s) PO Q6H as needed No Start Date Active Vitamin D3 5,000 uni t tablet RxNorm: 511098 1 Tablet(s) PO QD No Start Date Active oxycodone-acetaminop hen 5 mg-325 mg tablet RxNorm: 4863782 1 Tablet(s) PO Q4H a s needed No Start Date Active amitriptyline 10 mg tablet RxNorm: 581227 1 Tablet(s) PO QHS No Start Date 03/31/2018 Inactive oxybutynin chloride 5 mg tablet RxNorm: 036422 1 Tablet(s) PO QHS No Start Date 03/31/2018 Inactive Vitamin D2 50,000 un it capsule RxNorm: 9737007 1 Capsule(s) PO QW No Start Date 03/13/2018 Inactive Valtrex 1 gram tablet RxNorm: 251944 1 Tablet(s) PO TID No Start Date 07/01/2017 Inactive meloxicam 7.5 mg tablet RxNorm: 499195 1 Tablet(s) PO QD No Start Date 01/25/2016 Inactive Mobic 15 mg tablet RxNorm: 845955 1 Tablet(s) PO QD No Start Date 11/15/2016 Inactive Lyrica 100 mg capsule RxNorm: 842595 1 Capsule(s) PO BID No Start Date 04/09/2017 Inactive Wellbutrin XL 150 mg 24 hr tablet, extended release RxNorm: 746479 1 Tablet(s) PO QD No Start Date 11/30/2015 Inactive Premarin 0.625 mg ta blet RxNorm: 523099 1 Tablet(s) PO QD No Start Date 01/23/2016 Inactive Vitamin D3 5,000 uni t tablet RxNorm: 648807 1 Tablet(s) PO QD No Start Date 08/26/2017 Inactive melatonin 10 mg tablet RxNorm: 4157554 1 Tablet(s) PO QD No Start Date 11/28/2016 Inactive gabapentin 600 mg ta blet RxNorm: 599945 1 Tablet(s) PO TID No Start Date 04/30/2018 Inactive Lunesta 2 mg tablet RxNorm: 749896 1 Tablet(s) PO QHS No Start Date 01/30/2017 Inactive melatonin 3 mg tablet RxNorm: 715281 2 Tablet(s) PO QHS No Start Date 2016 Inactive propranolol 40 mg ta blet RxNorm: 845671 1 Tablet(s) PO QD No Start Date 01/30/2017 Inactive Elavil 25 mg tablet RxNorm: 402059 1 Tablet(s) PO QD No Start Date 11/28/2016 Inactive carbamazepine ER 200 mg tablet,extended release,12 hr RxNorm: 796437 1 Tablet(s) PO BID No Start Date 03/13/2018 Inactive acyclovir 200 mg cap ilda RxNorm: 640734 2 Capsule(s) PO BID No Start Date 12/09/2015 Inactive scopolamine 1 mg ove r 3 days transdermal patch RxNorm: 909354 TD No Start Date 08/26/2017 Inactive propranolol 40 mg ta blet RxNorm: 043854 1 Tablet(s) PO BID No Start Date 12/25/2016 Inactive gabapentin 300 mg ca psule RxNorm: 635389 1 Capsule(s) PO QD No Start Date 01/30/2017 Inactive Zofran 4 mg tablet RxNorm: 670507 1 Tablet(s) PO QD No Start Date 01/23/2016 Inactive Medication Administered No Medication Administered data Immunizations No Immunization data Assessments Condition Codes Effectiv e Dates Acute sinusitis, unspecified ICD-10: J01.90 ICD-9: 461.9 04/02/2018 Other acute sinusitis ICD-10: J01.80 ICD-9: 461.8 04/01/2018 Other insomnia ICD-10: G47.09 ICD-9: 327.09 04/01/2018 Pain in right wrist ICD-10: M25.531 ICD-9: 719.43 04/01/2018 Disorder of the skin and subcutaneous tissue, unspecif ied ICD- 10: L98.9 ICD-9: 709.9 04/01/2018 Postherpetic trigeminal neuralgia IC D-10: B02.22 ICD-9: 053.12 03/14/2018 Encounter for screening for cardiovascular disorders ICD-10: Z13.6 ICD-9: V81.2 02/04/2018 Encounter for screening for lipoid disorders ICD-10: Z13.220 ICD-9: V77.91 02/04/2018 Left lower quadrant pain ICD-10: R10 .32 ICD-9: 789.04 01/18/2018 Urgency of urination ICD-10: R39.15 ICD-9: 788.63 01/18/2018 Benign paroxysmal vertigo, right ear ICD-10: H81.11 ICD-9: 386.11 08/27/2017 Dizziness and giddiness ICD-10: R42 ICD-9: 780.4 05/07/2017 Generalized abdominal pain ICD-10: R 10.84 ICD-9: 789.00 05/07/2017 Headache ICD-10: R51 ICD-9: 784.0 05/07/2017 Nausea ICD-10: R11.0 ICD-9: 787.02 05/07/2017 Unspecified adverse effect of drug or me dicament, initial encounter ICD-10: T88.7XXA ICD-9: 995.20 05/07/2017 Stricture of artery ICD-10: I77.1 ICD-9: 447.1 04/10/2017 Tinnitus, right ear ICD-10: H93.11 ICD-9: 388.30 04/10/2017 Personal history of malignant melanoma of skin ICD-10: Z85.820 ICD-9: V10.82 03/26/2017 Tinnitus, right ear ICD-10: H93.11 ICD-9: 388.31 03/06/2017 Major depressive disorder, recurrent, unspecified ICD-10: F33.9 ICD-9: 296.30 11/29/2016 URI, ACUTE ICD-10: J06.9 ICD-9: 465.9 10/30/2016 Unspecified perichondritis of right external ear ICD-10: H61.001 ICD-9: 380.00 08/01/2016 Herpesviral vesicular dermatitis ICD -10: B00.1 ICD-9: 054.9 06/27/2016 Vitamin D deficiency, unspecified IC D-10: E55.9 ICD-9: 268.9 06/27/2016 Other polyuria ICD-10: R35.8 ICD-9: 788.42 03/02/2016 Fibromyalgia ICD-10: M79.7 ICD-9: 729.1 01/24/2016 Opioid dependence, uncomplicated ICD -10: F11.20 ICD-9: 304.92 12/23/2015 Viral intestinal infection, unspecified ICD-10: A08.4 ICD-9: 008.8 12/01/2015 Primary insomnia ICD-10: F51.01 ICD-9: 307.42 12/01/2015 Reason For Visit Reason For Visit Effective Dates Notes injection(s) 04/02/2018 per Jenn, 1 gm Rocephin IM follow up 04/01/2018 2 w [place] follow up 03/14/2018 Hos pital fwup otalgia 02/04/2018 abdominal pain 01/18/2018 dizziness 08/27/2017 dizziness 05/07/2017 Pat ient recently started on Carbamazepine 200mg BID follow up 04/10/2017 dizziness 03/06/2017 Pat ient has feeling of blood rushing in ears follow up 01/31/2017 follow up 11/29/2016 follow up 10/30/2016 follow up 08/01/2016 Cym laxmi restarted at 20mg po daily and needs refill follow up 06/27/2016 follow up 01/24/2016 1mo fwup follow up 12/23/2015 ~generic 12/01/2015 New Patient---establishing visit, Patient has been to [facility] Results Observation Observation Code Item Item Code Result Date COMPREHENSIVE METABOLIC 27480 AST 12 U/L 05/07/2017 COMPREHENSIVE METABOLIC 51352 ALT 11 U/L 05/07/2017 COMPREHENSIVE METABOLIC 05482 BUN 12 mg/dL 05/07/2017 COMPREHENSIVE METABOLIC 54703 ALBUMIN 4.4 g/dL 05/07/2017 COMPREHENSIVE METABOLIC 52751 CHLORIDE 102 mmol/L 05/07/2017 COMPREHENSIVE METABOLIC 51607 Bili Total 0.5 mg/dL 05/07/2017 COMPREHENSIVE METABOLIC 32485 ALK PHOS 74 U/L 05/07/2017 COMPREHENSIVE METABOLIC 30738 SODIUM 134 mmol/L 05/07/2017 COMPREHENSIVE METABOLIC 24191 CREATININE 0.84 mg/dL 05/07/2017 COMPREHENSIVE METABOLIC 55328 CALCIUM 9.4 mg/dL 05/07/2017 COMPREHENSIVE METABOLIC 64636 POTASSIUM 3.9 mmol/L 05/07/2017 COMPREHENSIVE METABOLIC 58829 Total Protein 7.4 g/dL 05/07/2017 COMPREHENSIVE METABOLIC 37615 Glucose 99 mg/dL 05/07/2017 COMPREHENSIVE METABOLIC 25941 Bicarbonate 24 mmol/L 05/07/2017 COMPREHENSIVE METABOLIC 55539 AGAP 8 mmol/L 05/07/2017 GFR CALC 3436936 GFR Non Afr Amr >60 mL/min 05/07/2017 GFR CALC 7397872 GFR Afr Amr >60 mL/min 05/07/2017 THYROID STIMULATING HORMONE 58041 TSH 2.409 uIU/mL 8 ERYTHROCYTE SEDIMENTATION RATE 97841 Sed Rate 26 mm/hr 05/07/2017 COMPLETE BLOOD COUNT 6004994 WBC 5.6 10e9/L 05/07/2017 COMPLETE BLOOD COUNT 7476338 RBC 4.49 10e12/L 8 COMPLETE BLOOD COUNT 3678725 HEMOGLOBIN 13.8 g/dL 05/07/2017 COMPLETE BLOOD COUNT 3727413 HEMATOCRIT 41.3 % 05/07/2017 COMPLETE BLOOD COUNT [id number] MCV 92.0 fL 05/07/2017 COMPLETE BLOOD COUNT 2140819 MCH 30.7 pg 05/07/2017 COMPLETE BLOOD COUNT 7089382 MCHC 33.4 g/dL 05/07/2017 COMPLETE BLOOD COUNT [id number] PLATELET COUNT 299 10e9/L 05/07/2017 COMPLETE BLOOD COUNT 0934315 Mean Plt Volume 8.3 fL 05/07/2017 COMPLETE BLOOD COUNT 5684878 Neut Auto 61.1 % 05/07/2017 COMPLETE BLOOD COUNT 0037382 Lymph Auto 27.5 % 05/07/2017 COMPLETE BLOOD COUNT 5854622 [place] Auto 7.6 % 05/07/2017 COMPLETE BLOOD COUNT 8347228 Eos Auto 3.6 % 05/07/2017 COMPLETE BLOOD COUNT 4168472 RDW 13.0 % 05/07/2017 COMPLETE BLOOD COUNT 2370413 Baso Auto 0.2 % 05/07/2017 COMPLETE BLOOD COUNT 0089894 Neutrophil Abs 3.42 10e9/L 05/07/2017 COMPLETE BLOOD COUNT 3306532 Lymphocyte Abs 1.54 10e9/L 05/07/2017 COMPLETE BLOOD COUNT 6445946 Monocyte Abs 0.43 10e9/L 05/07/2017 COMPLETE BLOOD COUNT 5257505 Eosinophil Abs 0.20 10e9/L 05/07/2017 COMPLETE BLOOD COUNT 8402570 RDW-SD 42.5 fL 05/07/2017 COMPLETE BLOOD COUNT [id number] Basophil Abs 0.01 10e9/L 05/07/2017 VITAMIN D TOTAL (25 HYDROXY) 58088 Vitamin D 25 OH 22 ng/mL 6 Review of Systems System Result Effective Dates Constitutional No fever 04/01/2018 Constitutional No recent illness 04/01/2018 Constitutional No fatigue 04/01/2018 Constitutional No chills 04/01/2018 Respiratory No cough 12/2018 Respiratory No chest tightness 04/01/2018 Respiratory No dyspnea 0 04/01/2018 Gastrointestinal No abdominal pain 04/01/2018 Gastrointestinal No constipation 04/01/2018 Gastrointestinal No diarrhea 04/01/2018 Gastrointestinal No nausea 04/01/2018 Ears/Nose/Throat/Neck sore throat 04/01/2018 Ears/Nose/Throat/Neck No otalgia 04/01/2018 Ears/Nose/Throat/Neck sinus congestion 04/01/2018 Ears/Nose/Throat/Neck sinusitis 04/01/2018 Musculoskeletal No myalgias 04/01/2018 Musculoskeletal bone pain 04/01/2018 Constitutional insomnia 04/01/2018 Dermatologic sores 04/01 Ears/Nose/Throat/Neck sinus congestion 03/14/2018 Ears/Nose/Throat/Neck sinusitis 03/14/2018 Neurologic headache 02/20 Neurologic pain, facial 03/14/2018 Dermatologic No rash Constitutional No fever 02/04/2018 Constitutional chills Constitutional fatigue 1 04/07/2017 Musculoskeletal No myalgias 02/04/2018 Ears/Nose/Throat/Neck No sore throat 02/04/2018 Ears/Nose/Throat/Neck otalgia 02/04/2018 Ears/Nose/Throat/Neck postnasal drip 02/04/2018 Ears/Nose/Throat/Neck sinus congestion 02/04/2018 Ears/Nose/Throat/Neck sinusitis 02/04/2018 Ears/Nose/Throat/Neck nasal discharge 02/04/2018 Ears/Nose/Throat/Neck headache 02/04/2018 Respiratory cough 2017 Respiratory chest congestion 02/04/2018 Endocrine hyperlipidemia 02/04/2018 Constitutional No fever 01/18/2018 Constitutional No fatigue 01/18/2018 Constitutional No chills 01/18/2018 Genitourinary/Nephrology No dysuria 01/18/2018 Genitourinary/Nephrology No hematuria 01/18/2018 Genitourinary/Nephrology urinary urgency 01/18/2018 Genitourinary/Nephrology urinary frequency 01/18/2018 Genitourinary/Nephrology urinary inc ontinence 01/18/2018 Genitourinary/Nephrology No vaginal discharge 01/18/2018 Musculoskeletal No myalgias 01/18/2018 Dermatologic No rash Gastrointestinal No abdominal pain 01/18/2018 Gastrointestinal No constipation 01/18/2018 Gastrointestinal No diarrhea 01/18/2018 Gastrointestinal No nausea 01/18/2018 Gastrointestinal No vomiting 01/18/2018 Genitourinary/Nephrology pelvic pain 01/18/2018 Constitutional No fever 08/27/2017 Constitutional No fatigue 08/27/2017 Constitutional No chills 08/27/2017 Ears/Nose/Throat/Neck otalgia 08/27/2017 Ears/Nose/Throat/Neck No postnasal drip 08/27/2017 Ears/Nose/Throat/Neck No nasal allergies 08/27/2017 Ears/Nose/Throat/Neck No hearing loss 08/27/2017 Ears/Nose/Throat/Neck No sore throat 08/27/2017 Ears/Nose/Throat/Neck No sinus congestion 08/27/2017 Ears/Nose/Throat/Neck No sinusitis 08/27/2017 Neurologic dizziness 10/2017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 SC/IM CPT-4: 58792 05/07/2017 PROMETHAZINE HCL INJ ECTION CPT-4: J2550 05/07/2017 PRESCRIP TRANSMIT A ERX SY CPT-4: G8553 04/10/2017 PRESCRIP TRANSMIT A ERX SY CPT-4: G8553 03/06/2017 PRESCRIP TRANSMIT A ERX SY CPT-4: G8553 01/31/2017 PRESCRIP TRANSMIT A ERX SY CPT-4: G8553 11/29/2016 PRESCRIP TRANSMIT A ERX SY CPT-4: G8553 10/30/2016 PRESCRIP TRANSMIT A ERX SY CPT-4: G8553 06/27/2016 ROUTINE VENIPUNCTURE CPT-4: 22808 01/24/2016 VITAMIN D TOTAL (25 HYDROXY) CPT-4: 48919 01/24/2016 PRESCRIP TRANSMIT A ERX SY CPT-4: G8553 01/24/2016 PRESCRIP TRANSMIT A ERX SY CPT-4: G8553 12/23/2015 CUR TOBACCO NON-USER CPT-4: G8457 12/01/2015 PRESCRIP TRANSMIT A ERX SY CPT-4: G8553 12/01/2015 Vital Signs Date Vital 04/01/2018 Blood Pressure 1: 120/84 Code: 8480-6 Heart Rate 1: 119 bpm Respiratory Rate: 18 bpm SpO2: 98% Temperature: 36.5 (C ) / 97.7 (F) Weight: 209 lbs 03/14/2018 Blood Pressure 1: 128/90 Code: 8480-6 Heart Rate 1: 88 bpm Respiratory Rate: 20 bpm SpO2: 97% Temperature: 36.8 (C ) / 98.2 (F) Weight: 208 lbs 02/04/2018 Blood Pressure 1: 123/88 Code: 8480-6 Heart Rate 1: 102 bpm SpO2: 98% Temperature: 36.6 (C ) / 97.9 (F) Weight: 208 lbs 01/18/2018 Blood Pressure 1: 126/86 Code: 8480-6 BMI: 36.0 Code: 32279-9 Heart Rate 1: 92 bpm Height: 5'4" Respiratory Rate: 18 bpm SpO2: 97% Temperature: 36.8 (C ) / 98.3 (F) Weight: 210 lbs 08/27/2017 Blood Pressure 1: 132/92 Code: 8480-6 Heart Rate 1: 92 bpm Respiratory Rate: 18 bpm SpO2: 98% Temperature: 36.9 (C ) / 98.4 (F) Weight: 205 lbs 05/07/2017 Blood Pressure 1: 106/80 Code: 8480-6 BMI: 35.7 Code: 22441-1 Heart Rate 1: 84 bpm Height: 5'4" Respiratory Rate: 20 bpm SpO2: 96% Temperature: 36.7 (C ) / 98.1 (F) Weight: 208 lbs 04/10/2017 Blood Pressure 1: 124/82 Code: 8480-6 Heart Rate 1: 76 bpm Height: 5'4" Respiratory Rate: 20 bpm Temperature: 36.8 (C ) / 98.2 (F) 03/06/2017 Blood Pressure 1: 124/90 Code: 8480-6 BMI: 36.4 Code: 33652-7 Heart Rate 1: 88 bpm Height: 5'4" Respiratory Rate: 20 bpm SpO2: 98% Temperature: 36.9 (C ) / 98.4 (F) Weight: 212 lbs 01/31/2017 Blood Pressure 1: 124/78 Code: 8480-6 BMI: 35.4 Code: 23471-2 Heart Rate 1: 80 bpm Height: 5'4" Respiratory Rate: 20 bpm Temperature: 36.6 (C ) / 97.8 (F) Weight: 206 lbs 11/29/2016 Blood Pressure 1: 134/84 Code: 8480-6 BMI: 35.4 Code: 33822-5 Heart Rate 1: 88 bpm Height: 5'4" Respiratory Rate: 20 bpm Temperature: 37.0 (C ) / 98.6 (F) Weight: 206 lbs 10/30/2016 Blood Pressure 1: 134/90 Code: 8480-6 BMI: 35.0 Code: 58553-2 Heart Rate 1: 96 bpm Height: 5'4" Respiratory Rate: 20 bpm Temperature: 36.8 (C ) / 98.3 (F) Weight: 204 lbs 08/01/2016 Blood Pressure 1: 120/82 Code: 8480-6 Heart Rate 1: 84 bpm Height: 5'4" Respiratory Rate: 20 bpm SpO2: 98% Temperature: 36.0 (C ) / 96.8 (F) 06/27/2016 Blood Pressure 1: 134/80 Code: 8480-6 BMI: 35.0 Code: 77192-8 Heart Rate 1: 76 bpm Height: 5'4" Respiratory Rate: 20 bpm Temperature: 36.8 (C ) / 98.3 (F) Weight: 204 lbs 01/24/2016 Blood Pressure 1: 114/78 Code: 8480-6 BMI: 34.7 Code: 42875-7 Heart Rate 1: 100 bpm Height: 5'4" Respiratory Rate: 20 bpm Temperature: 36.8 (C ) / 98.3 (F) Weight: 202 lbs 12/23/2015 Blood Pressure 1: 118/74 Code: 8480-6 BMI: 33.5 Code: 44304-5 Heart Rate 1: 76 bpm Height: 5'4" Respiratory Rate: 20 bpm Temperature: 37.1 (C ) / 98.7 (F) Weight: 195 lbs 12/01/2015 Blood Pressure 1: 106/74 Code: 8480-6 BMI: 31.8 Code: 17135-0 Heart Rate 1: 80 bpm Height: 5'4" Respiratory Rate: 20 bpm Temperature: 36.7 (C ) / 98.1 (F) Weight: 188 lbs Functional Status No Functional Status data History of Present Illness Symptom Name Status Resu lt Effective Date Notes Onset of Symptom 3 wee ks ago 04/01/2018 has not had any x-rays Onset of Symptom 3 day s ago 04/01/2018 None Quality chronic 03/14/2018 None Location on the right cheek 03/14/2018 None Location on the right side 03/14/2018 None Quality stabbing 03/14/2018 None Quality burning 03/14/2018 None Onset and Resolution o ngoing. 03/14/2018 Patient took off duragesi c patch this morning to see how pain does without medication abdominal pain Location in the LLQ 01/18/2018 None abdominal pain Quality t enderness 01/18/2018 None abdominal pain Onset of Symptom 2 weeks ago 01/18/2018 None urinary incontinence Quality urge incontinence 01/18/2018 None urinary incontinence Onset and Resolution ongoing 01/18/2018 None dizziness Quality sense of motion 01/18/2018 None headache Location diffus gaurav 01/18/2018 None headache Quality pressure 01/18/2018 None headache Onset and Resolution ongoing 01/18/2018 None dizziness Onset and Resolution ongoing 01/18/2018 None dizziness Quality lighth eadedness 05/07/2017 None dizziness Quality sense of motion 05/07/2017 None dizziness Onset of Symptom 2 days ago 05/07/2017 None disturbances of emotion Quality chronic 05/07/2017 None disturbances of emotion Quality worsening 05/07/2017 [facility] not covering at this point cough Quality dry 05/07/2017 None insomnia Quality chronic 05/07/2017 None insomnia Onset and Resolution ongoing 05/07/2017 None headache Location diffus gaurav 05/07/2017 None headache Onset and Resolution ongoing 05/07/2017 None headache Onset of Symptom 3 days ago 05/07/2017 None dizziness Quality acute 05/07/2017 None dizziness Quality drop a ttacks 05/07/2017 None dizziness Onset and Resolution sudden in onset 05/07/2017 None dizziness Onset and Resolution ongoing 05/07/2017 None dizziness Triggers no kn own associated factors 05/07/2017 None disturbances of emotion Onset of Symptom during adulthood 05/07/2017 None cough Onset of Symptom 3 weeks ago 05/07/2017 None insomnia Quality difficu lty falling asleep 05/07/2017 None insomnia Quality disrupt ed sleep 05/07/2017 None insomnia Quality early a wakening 05/07/2017 None insomnia Quality worseni ng 05/07/2017 None insomnia Severity severe 05/07/2017 None headache Quality acute 05/07/2017 None headache Limitation on Activities is incapacitating 05/07/2017 None headache Location diffus gaurav 04/10/2017 None headache Onset and Resolution ongoing. 04/10/2017 Discuss recent CTA dizziness Quality lighth eadedness 03/06/2017 None dizziness Quality consta nt 03/06/2017 None dizziness Onset of Symptom 4-5 days ago 03/06/2017 None dizziness Quality recurr ent 03/06/2017 None dizziness Quality spinni ng 03/06/2017 None dizziness Quality imbala nce 03/06/2017 None headache Location diffus gaurav 03/06/2017 None headache Quality throbbi ng 03/06/2017 None headache Onset and Resolution ongoing 03/06/2017 None headache Location diffus gaurav 01/31/2017 None headache Quality chronic. 01/31/2017 Patient is now taking propranolol headache Onset and Resolution ongoing 01/31/2017 None insomnia Quality chronic 01/31/2017 None insomnia Quality improvi ng 01/31/2017 Refill lunesta paresthesia Quality ting ling 01/31/2017 None paresthesia Quality numb ness 01/31/2017 None paresthesia Location on the lips 01/31/2017 None paresthesia Onset and Resolution ongoing. 01/31/2017 Dr Griffith started her on gabapentin 300mg daily about 1 months ago disturbances of emotion Quality chronic 11/29/2016 None disturbances of emotion Quality depression 11/29/2016 None disturbances of emotion Quality improving 11/29/2016 None headache Location diffus gaurav 11/29/2016 None headache Quality constan t. 11/29/2016 Patient had eye exam with Dr Warren this morning headache Quality throbbi ng 11/29/2016 None disturbances of emotion Quality depression 10/30/2016 None disturbances of emotion Quality chronic 10/30/2016 None disturbances of emotion Quality stable 10/30/2016 None blisters Location-Major on the face 10/30/2016 None blisters Quality recurre nt 10/30/2016 None blisters Color pink 10/30/2016 None blisters Quality uncomfo rtable 10/30/2016 None blisters Quality tingling 10/30/2016 None sore throat Location dif fusely 10/30/2016 None sore throat Quality acute 10/30/2016 None skin lesion Location Rig ht Auricle 08/01/2016 Patient is currently bein g treated with Acyclovir weight gain/obesity Location globally 08/01/2016 None weight gain/obesity Quality acute 08/01/2016 None weight gain/obesity Quality worsening 08/01/2016 None depression Quality stable 08/01/2016 None depression Quality impro ving 08/01/2016 None depression Onset and Resolution ongoing 08/01/2016 None depression Onset of Symptom during adulthood 08/01/2016 None skin lesion Quality contemporary or modern dancer crow 06/27/2016 Recurrent herpetic lesion skin lesion Location on the right auricle 06/27/2016 None skin lesion Quality tend er 06/27/2016 None skin lesion Onset and Resolution ongoing 06/27/2016 Currently taking acyclovi r 200mg 2 BID disturbances of emotion Quality depression 06/27/2016 None disturbances of emotion Quality worsening. 06/27/2016 Patient has been off cymb rony about 1 1/2 months disturbances of emotion Quality tearful 06/27/2016 None pain, generalized Location diffusely 01/24/2016 None pain, generalized Location diffusely 12/23/2015 None pain, generalized Quality chronic 12/23/2015 None pain, generalized Quality stable. 12/23/2015 Patient is now down to mo rphine 15mg daily insomnia Quality chronic 12/23/2015 None insomnia Quality improvi ng 12/23/2015 None insomnia Alleviating Factors medication. 12/23/2015 Currently taking amitript yline 50mg at bedtime but does seem groggy the next day paresthesia Quality contemporary or modern dancer crow 12/01/2015 None paresthesia Quality burn ing 12/01/2015 None paresthesia Quality numb ness 12/01/2015 None paresthesia Quality ting ling 12/01/2015 None paresthesia Onset and Resolution ongoing. 12/01/2015 Discuss Lyrica regimen pain, generalized Location diffusely 12/01/2015 None pain, generalized Quality chronic 12/01/2015 None pain, generalized Quality aching 12/01/2015 None pain, generalized Quality fibromyalgia 12/01/2015 None skin cancer Location in multiple areas 12/01/2015 None skin cancer Quality stab le 12/01/[address] Griffith yearly depression Quality chron ic 12/01/2015 None anxiety Quality chronic 12/01/2015 None anxiety Quality agitation 12/01/2015 None anxiety Onset and Resolution ongoing 12/01/2015 Discuss coming off wellbu john since it doesn't help anxiety Quality panic at tacks 12/01/2015 None pain, generalized Quality constant 12/01/2015 None pain, generalized Onset and Resolution ongoing 12/01/2015 None pain, generalized Onset of Symptom during adulthood 12/01/2015 None pain, generalized Limitation on Activities is incapacitating 12/01/2015 None pain, generalized Frequency of Episodes daily 12/01/2015 None pain, generalized Alleviating Factors medication 12/01/2015 has been on morphine but has seen a pain doctor with a schedule to wean off the morphine pain, generalized Exacerbating Factors exertion 12/01/2015 None pain, generalized Exacerbating Factors stress 12/01/2015 None pain, generalized Pertinent Findings fatigue 12/01/2015 None pain, generalized Pertinent Findings focal numbness 12/01/2015 None pain, generalized Pertinent Findings focal weakness 12/01/2015 None pain, generalized Pertinent Findings malaise 12/01/2015 None paresthesia Location dif fusely 12/01/2015 None depression Onset and Resolution ongoing 12/01/2015 None depression Onset of Symptom during adulthood 12/01/2015 None depression Triggers stre ss 12/01/2015 None depression Alleviating Factors medication 12/01/2015 has been on Wellbutirn bu t trying to wean off depression Limitation on Activities moderately limits activities 12/01/2015 None depression Frequency of Episodes daily 12/01/2015 None anxiety Onset of Symptom during adulthood 12/01/2015 None nausea Quality acute 12/01/2015 None nausea Onset and Resolution ongoing 12/01/2015 None nausea Severity moderate 12/01/2015 None nausea Onset of Symptom 2 days ago 12/01/2015 None nausea Pertinent Findings abdominal pain 12/01/2015 None nausea Pertinent Findings Denies diarrhea 12/01/2015 None insomnia Quality chronic 12/01/2015 None insomnia Quality difficu lty falling asleep 12/01/2015 None insomnia Quality disrupt ed sleep 12/01/2015 None insomnia Quality early a wakening 12/01/2015 None insomnia Quality worseni ng 12/01/2015 None insomnia Onset and Resolution ongoing 12/01/2015 None insomnia Severity severe 12/01/2015 None insomnia Frequency of Episodes daily 12/01/2015 None insomnia Significant Medical Conditions illness 12/01/2015 pain disrupts sleep Advance Directives No Advance Directive data Encounters Encounter Performer Loca tion Codes Date ([id number]) NURSE/OUTPAT IENT VISIT EST Diagnosis: Acute sinusitis, unspecified[ICD10: J01.90] Rosaline ERVIN [facility] CPT-4: 39763 04/02/2018 ([id number]) OFFICE/OUTPA TIENT VISIT EST Diagnosis: Pain in right wrist[ICD10: M25.531] Diagnosis: Disorder of the skin and subcutaneous tissue, unspecified[ICD10: L98.9] Diagnosis: Other acute sinusitis[ICD10: J01.80] Diagnosis: Other insomnia[ICD10: G47.09] Rachael FLOR DO [facility] CPT-4: 54396 04/01/2018 ([id number]) OFFICE/OUTPA TIENT VISIT EST Diagnosis: Postherpetic trigeminal neuralgia[ICD10: B02.22] Diagnosis: Acute sinusitis, unspecified[ICD10: J01.90] Rosaline ERVIN [facility] CPT-4: 49237 03/14/2018 ([id number]) OFFICE/OUTPA TIENT VISIT EST Diagnosis: Acute sinusitis, unspecified[ICD10: J01.90] Diagnosis: Encounter for screening for cardiovascular disorders[ICD10: Z13.6] Diagnosis: Encounter for screening for lipoid disorders[ICD10: Z13.220] Rachael FLOR DO [facility] CPT-4: 56975 02/04/2018 ([id number]) OFFICE/OUTPA TIENT VISIT EST Diagnosis: Left lower quadrant pain[ICD10: R10.32] Diagnosis: Urgency of urination[ICD10: R39.15] Rachael DAMON [facility] CPT-4: 55501 01/18/2018 ([id number]) OFFICE/OUTPA TIENT VISIT EST Diagnosis: Benign paroxysmal vertigo, right ear[ICD10: H81.11] Rachael LEUNG [facility] CPT-4: 22012 08/27/2017 ([id number]) OFFICE/OUTPA TIENT VISIT EST Diagnosis: Generalized abdominal pain[ICD10: R10.84] Diagnosis: Headache[ICD10: R51] Diagnosis: Dizziness and giddiness[ICD10: R42] Diagnosis: Unspecified adverse effect of drug or medicament, initial encounter[ICD10: T88.7XXA] Diagnosis: Nausea[ICD10: R11.0] Rosaline FLOR [facility] CPT-4: 52454 05/07/2017 ([id number]) OFFICE/OUTPA TIENT VISIT EST Diagnosis: Tinnitus, right ear[ICD10: H93.11] Diagnosis: Stricture of artery[ICD10: I77.1] Diagnosis: Headache[ICD10: R51] Diagnosis: Dizziness and giddiness[ICD10: R42] Rosaline ERVIN [facility] CPT-4: 16071 04/10/2017 ([id number]) OFFICE/OUTPA TIENT VISIT EST Diagnosis: Dizziness and giddiness[ICD10: R42] Diagnosis: Headache[ICD10: R51] Diagnosis: Tinnitus, right ear[ICD10: H93.11] Rosaline ERVIN [facility] CPT-4: 72715 03/06/2017 ([id number]) OFFICE/OUTPA TIENT VISIT EST Diagnosis: Postherpetic trigeminal neuralgia[ICD10: B02.22] Diagnosis: Headache[ICD10: R51] Diagnosis: Dizziness and giddiness[ICD10: R42] Rosaline ERVIN [employer] [facility] CPT-4: 49815 01/31/2017 ([id number]) OFFICE/OUTPA TIENT VISIT EST Diagnosis: Headache[ICD10: R51] Diagnosis: Major depressive disorder, recurrent, unspecified[ICD10: F33.9] Diagnosis: Personal history of malignant melanoma of skin[ICD10: Z85.820] Rosaline FLOR DO [facility] CPT-4: 04152 11/29/2016 ([id number]) OFFICE/OUTPA TIENT VISIT EST Diagnosis: Major depressive disorder, recurrent, unspecified[ICD10: F33.9] Diagnosis: Postherpetic trigeminal neuralgia[ICD10: B02.22] Diagnosis: URI, ACUTE[ICD10: J06.9] Rosaline FLOR [employer] [facility] CPT-4: 67768 10/30/2016 ([id number]) OFFICE/OUTPA TIENT VISIT EST Diagnosis: Unspecified perichondritis of right external ear[ICD10: H61.001] Diagnosis: Major depressive disorder, recurrent, unspecified[ICD10: F33.9] Rosalinefranco FLOR [facility] CPT-4: 43700 08/01/2016 ([id number]) OFFICE/OUTPA TIENT VISIT EST Diagnosis: Unspecified perichondritis of right external ear[ICD10: H61.001] Diagnosis: 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] Diagnosis: Major depressive disorder, recurrent, unspecified[ICD10: F33.9] Diagnosis: Vitamin D deficiency, unspecified[ICD10: E55.9] Rosalinefranco ERVIN [facility] CPT-4: 55962 06/27/2016 ([id number]) OFFICE/OUTPA TIENT VISIT EST Diagnosis: Fibromyalgia[ICD10: M79.7] Diagnosis: Vitamin D deficiency, unspecified[ICD10: E55.9] Diagnosis: 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] Rosaline Basia ERVIN [facility] CPT-4: 40819 01/24/2016 OFFICE/OUTPATIENT SIT EST Diagnosis: Opioid dependence, uncomplicated[ICD10: F11.20] Diagnosis: Fibromyalgia[ICD10: M79.7] Diagnosis: Major depressive disorder, recurrent, unspecified[ICD10: F33.9] Rosaline Basia FLOR [facility] CPT-4: 96210 12/23/2015 OFFICE/OUTPATIENT SIT NEW Diagnosis: Fibromyalgia[ICD10: M79.7] Diagnosis: Primary insomnia[ICD10: F51.01] Diagnosis: Opioid dependence, uncomplicated[ICD10: F11.20] Diagnosis: Major depressive disorder, recurrent, unspecified[ICD10: F33.9] Diagnosis: Viral intestinal infection, unspecified[ICD10: A08.4] Rosaline Basia ERVIN [facility] CPT-4: 99310 12/01/2015 Plan of Care Planned Activity Notes C odes Status Date Appointment: Rosaline Flor WPtel: [phone] [id number] US INJECTION 04/02/2018 Visit Diagnosis Plan: Pain in right wrist Discussion: xray of wrist/hand ordered due to length of injury and still having issues. can continue to wear wrist splint as needed for pain. ICD-9 : 719.43 ICD-10 : M25.531 04/01/2018 Visit Diagnosis Plan: Other acute sinusitis Recommendations: rocephin injection given in office since this is recurrent issue with patient. instructed to rtc tomorrow after 24 hours for additional injection. use humidifier at home along with hot steam from shower for symptom relief. 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 instructed to use tid for 10 days. call office after 10 days if no improvement. ICD-9 : 709.9 ICD-10 : L98.9 04/01/2018 Visit Diagnosis Plan: Other insomnia Discussion: increase amitriptyline to 25 mg daily. schedule a follow up for 1 month for medication efficacy. ICD-9 : 327.09 ICD-10 : G47.09 04/01/2018 Appointment: Rachael Anderson [address] [place], [place] [address] FOLLOW UP 04/01/2018 Patient Education: mupirocin- [employer] Coupon [id number] https://www.[email or web address].com/samplemd/resources/getResource/61/9e07677g-u083-2663-4t Completed 04/01/2018 Patient Education: amitriptyline- [employer] Coupon [id number] https://www.[employer]/samplemd/resources/getResource/61/j56n5a24-x4am-413d-65 Completed 04/01/2018 Patient Education: oxybutynin chloride- [employer] Coupon [id number] https://www.[email or web address].com/samplemd/resources/getResource/61/8t8zabbk-y851-98k5-pn ff-97hpux998902.pdf Completed 04/01/2018 Appointment: Rosaline Flor WPtel: [phone] [facility] [facility] 03/28/2018 Visit Diagnosis Plan: Acute sinusitis, unspecified Discussion: Finish cefdinir Add doxycycline ICD-9 : 461.9 ICD-10 : J01.90 03/14/2018 Visit Diagnosis Plan: Postherpetic trigeminal neuralgi a Discussion: Patient has stopped fentanyl patch this morning --will try to stay off fentanyl and continue current meds--call Sunday with how doing Gave rx for oxycodone 5/325mg 1 po q4hrs prn in case pain intensifies over weekend Follow Up: 2 weeks ICD-9 : 053.12 ICD-10 : B02.22 03/14/2018 Appointment: Rosaline Flor WPtel: [phone] [facility] Hospital Follow Up 03/14/2018 Patient Education: doxycycline hyclate- [employer] Coupon [id number] https://www.[email or web address].com/samplemd/resources/getResource/61/2q6cvwio-6dj9-799d-[email or web address].pdf Completed 03/14/2018 Visit Diagnosis Plan: Acute sinusitis, unspecified Discussion: kenalog/dexa given in office. cefdinir prescribed for symptom management. sudafed prescribed as well to take prn. increase fluid intake and rest often. if no improvement in a week or worsening symptoms, call clinic. ICD-9 : 461.9 ICD-10 : J01.90 02/04/2018 Visit Diagnosis Plan: Encounter for scre ening for lipoid disorders Discussion: lipids to be added onto [employer] work from last week. ICD-9 : V77.91 ICD-10 : Z13.220 02/04/2018 Appointment: Rachael Anderson [address] [place], [place] [id number] ACUTE ILLNESS 02/04/2018 Visit Diagnosis Plan: Urgency of urination Discussion: patient's granddaughter is now staying with her who is 2 and wants held often. instructed patient that change in urination pattern most likely due to heavy lifting which she is not used to. child has also gained 6 pounds in the last month since living there and her recent weight gain will place extra strain on whoever carries her. will review ultrasound results but discussed with patient t hat may need referral to gynecology as well. ICD-9 : 788.63 ICD-10 : R39.15 01/18/2018 Visit Diagnosis Plan: Left lower quadrant pain Discussion: urine dip shows leukocytes so will send for culture to rule out bacterial cause. will order a pelvic ultrasound as well to rule out hernia vs painful lymph node vs ovary concern. ICD-9 : 789.04 ICD-10 : R10.32 01/18/2018 Appointment: Rachael Anderson [address] [place], [place] [address] [address] ACUTE ILLNESS 01/18/2018 Care Plan: US EXAM PELVIC COMPLETE Pending 01/18/2018 Visit Diagnosis Plan: Benign paroxysmal vertigo, right ear Discussion: 40 mg kenalog/4 mg dexa given in office. meclizine prescribed to be taken prn dizziness. call or rtc if no improvement or worsening symptoms. ICD-9 : 386.11 ICD-10 : H81.11 08/27/2017 Appointment: Rachael Anderson [address] [place] [id number] ACUTE ILLNESS 08/27/2017 Patient Education: Patient Medication Summary Completed 08/27/2017 Visit Diagnosis Plan: Generalized abdominal pain Discussion: Thinks is IBS acting up ICD-9 : 789.00 ICD-10 : R10.84 05/07/2017 Visit Diagnosis Plan: Headache Discu ssion: Toradol 60mg IM x1 now with phenergan 25mg IM x1 ICD-9 : 784.0 ICD-10 : R51 05/07/2017 Visit Diagnosis Plan: Unspecified advers e effect of drug or medicament, initial encounter Discussion: Hold tegretol Symptoms may b e side effect of tegretol vs withdrawal from cymbalta vs both Check CMP, CBC, TSH, ESR now ICD-9 : 995.20 ICD-10 : T88.7XXA 05/07/2017 Visit Diagnosis Plan: Dizziness and giddiness Discussion: Scopolamine patch ICD-9 : 780.4 ICD-10 : R42 05/07/2017 Visit Diagnosis Plan: Nausea Discuss ion: Phenergan Recheck tomorrow or to ER tonite if worsening ICD-9 : 787.02 ICD-10 : R11.0 05/07/2017 Appointment: Rosaline Flor WPtel: [facility] ACUTE ILLNESS 05/07/2017 Patient Education: Patient Medication Summary Completed 05/07/2017 Patient Education: Patient Medication Summary Completed 05/07/2017 Care Plan: COMPREHEN METABOLIC PANEL LOINC : 91322-9 Pending 05/07/2017 Care Plan: ASSAY THYROID STIM HORMONE Pending 05/07/2017 Care Plan: RBC SED RATE AUTOMATED Pending 05/07/2017 Visit Diagnosis Plan: Tinnitus, right ear Discussion: 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 ICD-9 : 388.30 ICD-10 : H93.11 04/10/2017 Visit Diagnosis Plan: Headache Discu ssion: Referral to Neurology ICD-9 : 784.0 ICD-10 : R51 04/10/2017 Appointment: Rosaline Flor WPtel: [facility] FOLLOW UP 04/10/2017 Patient Education: Patient Medication Summary Completed 04/10/2017 Patient Education: Patient Medication Summary Completed 04/02/2017 Care Plan: US EXAM OF HEAD AND NECK right subclavian/vertebral artery Pending 04/02/2017 Patient Education: Patient Medication Summary Completed 03/26/2017 Care Plan: MR ANGIOGRAPHY NECK W/O DYE LOINC : 12914-5 Pending 03/26/2017 Care Plan: MR ANGIOGRAPHY HEAD W/O DYE LOINC : 77542-8 Pending 03/26/2017 Visit Diagnosis Plan: Headache Discu ssion: Increase lyrica to 100mg q HS ICD-9 : 784.0 ICD-10 : R51 03/06/2017 Visit Diagnosis Plan: Dizziness and giddiness Discussion: Add low dose propranolol q HS Follow Up: 3 weeks ICD-9 : 780.4 ICD-10 : R42 03/06/2017 Visit Diagnosis Plan: Tinnitus, right ear Discussion: May need MRA if persists ICD-9 : 388.31 ICD-10 : H93.11 03/06/2017 Appointment: Rosaline Flor WPtel[facility] [phone] [facility] [place] Confirmed-03/05/2017-KB FOLLOW UP 03/06/2017 Patient Education: Patient Medication Summary Completed 03/06/2017 Visit Diagnosis Plan: Dizziness and giddiness Discussion: Vestibular exercises May be acute labyrinthitis ICD-9 : 780.4 ICD-10 : R42 01/31/2017 Visit Diagnosis Plan: Postherpetic trigeminal neuralgi a Discussion: Change gabapentin to lyrica 50mg q HS Follow Up: 1 months ICD-9 : 053.12 ICD-10 : B02.22 01/31/2017 Visit Diagnosis Plan: Headache Discu ssion: Call in 1 week on how doing ICD-9 : 784.0 ICD-10 : R51 01/31/2017 Appointment: Rosaline Flor WPtel: [address] [place], [place] [id number] ACUTE [facility] 01/31/2017 Patient Education: Patient Medication Summary Completed 01/31/2017 Visit Diagnosis Plan: Headache Discu ssion: DC mobic since has not helped Check CT of Brain due to history of melanoma Add elavil 10mg q HS ICD-9 : 784.0 ICD-10 : R51 11/29/2016 Visit Diagnosis Plan: Personal history o f malignant melanoma of skin Discussion: Check CT scan of neck ICD-9 : V10.82 ICD-10 : Z85.820 11/29/2016 Visit Diagnosis Plan: Major depressive d isorder, recurrent, unspecified Discussion: Increase cymbalta to 60mg da sang ICD-9 : 296.30 ICD-10 : F33.9 11/29/2016 Appointment: Rosaline Flor WPtel: [facility] FOLLOW UP 11/29/2016 Patient Education: Patient Medication Summary Completed 11/29/2016 Care Plan: CT SOFT TISSUE NECK W/DYE Pending 11/29/2016 Care Plan: CT HEAD/BRAIN W/DYE Pending 11/29/2016 Visit Diagnosis Plan: Major depressive d isorder, recurrent, unspecified Discussion: Increase cymbalta to 40mg da sang Call in 2 weeks to update on how doing Follow Up: 1 months ICD-9 : 296.30 ICD-10 : F33.9 10/30/2016 Visit Diagnosis Plan: Postherpetic trigeminal neuralgi a Discussion: Will see if cymbalta helps Continue zovirax prophylaxis ICD-9 : 053.12 ICD-10 : B02.22 10/30/2016 Appointment: Rosaline Flor WPtel: [address] [place], [place] [phone] [place] FOLLOW UP 10/30/2016 Patient Education: Patient Medication Summary Completed 10/30/2016 Patient Education: [facility] - Saving AutoInj - Cymbalta - 18-64 - Dynamic Portal ID Completed 10/30/2016 Referral: Isaias Hobson WPtel: [address] [place], [place] [id number] [place] Referral Initiated 08/05/2016 Visit Diagnosis Plan: Major depressive d isorder, recurrent, unspecified Discussion: Continue cymbalta at current dose Follow Up: 3 months ICD-9 : 296.30 ICD-10 : F33.9 08/01/2016 Visit Diagnosis Plan: Unspecified perich ondritis of right external ear Discussion: See ENT for biopsy due to hi story of head and neck cancer ICD-9 : 380.00 ICD-10 : H61.001 08/01/2016 Appointment: Rosaline Flor WPtel: [facility] 07/31busy ` 08/01 confirmed~sl FOLLOW UP 08/01/2016 Patient Education: Patient Medication Summary Completed 08/01/2016 Care Plan: Referral Order SNOMED-CT : [id number] Pending 08/01/2016 Visit Diagnosis Plan: Major depressive d isorder, recurrent, unspecified Discussion: Restart cymbalta at 20mg sven ly Follow Up: 1 months ICD-9 : 296.30 ICD-10 : F33.9 06/27/2016 Visit Diagnosis Plan: Vitamin D deficiency, unspecifie d Discussion: Check bone density ICD-9 : 268.9 ICD-10 : E55.9 06/27/2016 Visit Diagnosis Plan: Herpesviral vesicular dermatitis Discussion: On acyclovir orally ICD-9 : 054.9 ICD-10 : B00.1 06/27/2016 Appointment: Rosaline Flor WPtel: [address] [place] [address] 06/26 confirmed-sp ER Follow UP 06/27/2016 Patient Education: Patient Medication Summary Completed 06/27/2016 Care Plan: DXA BONE DENSITY AXIAL LOINC : 29580-4 Pending 06/27/2016 Appointment: Rosaline Flor WPtel: [address] [place] [address] 06/13 lm`sl ACUTE ILLNESS 06/14/2016 Appointment: Rosaline Flor WPtel: [address] [place] [address] 06/12 lm~sl 06/12 rescheudle~sl RESCHEDULED 06/13/2016 Appointment: Rosaline Flor WPtel: [address] [place] [address] 04/13 confirmed `sl 04/17/2016 Patient Education: Patient Medication Summary Completed 03/02/2016 Care Plan: URINALYSIS AUTO W/O SCOPE LOINC : 82165-3 Pending 03/02/2016 Visit Plan: Check Vitamin D level t ambika Continue current meds Repeat Zovirax at 5 times a day for 1 more week then may need to wean depending on symptoms 01/24/2016 Visit Plan: Check Vitamin D level t ambika Continue current meds Repeat Zovirax at 5 times a day for 1 more week then may need to wean depending on symptoms 01/24/2016 Appointment: Rosaline Flor WPtel: [address] [place] [address] 01/19 lm `sl 01/20 busy busy~sl 01/23 lm ~sl FOLLOW UP 01/24/2016 Patient Education: Patient Medication Summary Completed 01/24/2016 Visit Plan: Continue MS Contin 15mg for 1 week then decrease to morphin IR 7.5mg for 1 week then stop Keep cymbalta at 60mg daily and keep lyrica at current dose Can decrease elavil to 1/2 tab after next week 12/23/2015 Visit Plan: Continue MS Contin 15mg for 1 week then decrease to morphin IR 7.5mg for 1 week then stop Keep cymbalta at 60mg daily and keep lyrica at current dose Can decrease elavil to 1/2 tab after next week Continue aqua therapy and discussed benefit of hottub and ability to do aquatherapy 12/23/2015 Appointment: Rosaline Flor WPtel: [phone] 12/21 lm~sl 12/22 confirmed ~sl FOLLOW UP 12/23/2015 Patient Education: Patient Medication Summary Completed 12/23/2015 Visit Plan: Continue Wellbutrin wit h cymbalta 30mg for 1week then DC Wellbutrin and increase Cymbalta to 60mg daily Restart Lyrica at 150mg po BID Start decrease of morphine per pain management recommendations--15mg q AM and 30mg q PM for 1 week then 15mg po BID for 1 week then 15mg daily until fwup Elavil 50mg po q HS for sleep Zofran prn for current illness and notify if worsening or persists Reviewed patient's medical records from [place], [facility] Patient follows routinely with Dr. Sprague for history of melanoma 12/01/2015 Appointment: Rosaline Flor WPtel: [phone] 11/29 confirmed~sl NEW PATIENT 12/01/2015 Patient Education: Patient Medication Summary Completed 12/01/2015 Patient Education: [facility] - Saving AutoInj - Cymbalta - 18-64 - Dynamic Portal ID Completed 12/01/2015 Patient Education: Lyrica - 18+ - No [place] Completed 12/01/2015 Patient Education: [facility] - Saving AutoInj - 18-64 - Dynamic Portal ID Completed 12/01/2015 Referral: Isaias Hobson WPtel: [address] Referral Appointment Requested Instructions Comment . Continue Wellbutri n with cymbalta 30mg for 1week then DC Wellbutrin and increase Cymbalta to 60mg daily Restart Lyrica at 150mg po BID Start decrease of morphine per pain management recommendations--15mg q AM and 30mg q PM for 1 week then 15mg po BID for 1 week then 15mg daily until fwup Elavil 50mg po q HS for sleep Zofran prn for current illness and notify if worsening or persists Reviewed patient's medical records from [place], [facility] Patient follows routinely with Dr. Sprague for history of melanoma . Check Vitamin D le anil today Continue current meds Repeat Zovirax at 5 times a day for 1 more week then may need to wean depending on symptoms . Check Vitamin D le anil today Continue current meds Repeat Zovirax at 5 times a day for 1 more week then may need to wean depending on symptoms . Continue MS Contin 15mg for 1 week then decrease to morphin IR 7.5mg for 1 week then stop Keep cymbalta at 60mg daily and keep lyrica at current dose Can decrease elavil to 1/2 tab after next week . Continue MS Contin 15mg for 1 week then decrease to morphin IR 7.5mg for 1 week then stop Keep cymbalta at 60mg daily and keep lyrica at current dose Can decrease elavil to 1/2 tab after next week Continue aqua therapy and discussed benefit of hottub and ability to do aquatherapy
--- OUTSIDE RECORDS SUMMARY | 2019-02-19 22:02 | XMS REPORT | Clinical Summary ---
Author Author [facility] Organization [facility] Address Unknown Phone Unavailable Care Team Providers Care Controller Operations And Hr Manager Name Role Phone Faizan Mann MD Unavailable Ammon Griffith MD PCP Rosa Elena Mendez RN Unavailable Unavailable Miley Thayer MD Unavailable Jhonny Sunshine MD Unavailable Stephen Palacio MD Unavailable Kris Martinez MD Unavailable Unavailable Luis E Jacinto MD Unavailable Conor Williamson MD Unavailable Jeannette Marti DO Unavailable Mary Fuentes MD Unavailable Herberth Harp MD Unavailable Matthew De Los Santos MD Unavailable Source Comments Some departments are not documenting in the electronic medical record. If you d o not see the information that you expected, contact Release of Information in [facility] Information Management department at [phone] for further assistan ce in locating additional records.[facility] Allergies Comments Active Allergy Reactions Severity Noted Date Talrwc-Bguq-Gr RASH 02/07/2014 Ndbv-Pq-Ceexjye Promethazine UNKNOWN 04/05/2010 Vancomycin ITCHING 04/06/2010 Medications End Date Status Medication Sig Dispensed Refills Start Date Active amitriptyline (ELAVIL) 10 Take 1 Tab by 90 Tab 3 mg tablet mouth at 6 bedtime daily. Active acyclovir (ZOVIRAX) 400 Take 400 mg 0 mg tablet by mouth every 24 hours. Active cholecalciferol(+) Take 1 Cap by 8 Cap 0 11/04 (Vitamin D3) 50,000 units mouth every 7 6 capsuleIndications: days. vitamin D deficiency Indications: VITAMIN D DEFICIENCY Additional information Patient taking differently: 5,000 Units Oral DAILY, Indications: vitamin D deficiency, Reported on 05/23/2016 12:57 PM Active Problems Problem Noted Date Fibromyalgia 11/03/2015 [...] Never Used Tobacco Cessation: Counseling Given: No Drinks/Week oz/Week Comments Alcohol Use 0 Standard drinks or equivalent 0.0 No Sex Assigned at Date Recorded Not on file Industry Job Start Date Occupation Not on file Not on file Not on file Travel End Travel History Travel Start No recent travel history available. Last Filed Vital Signs Reading Time Taken Comments Vital Sign 120/80 05/23/2016 12:54 PM CDT Blood Pressure 76 05/23/2016 12:54 PM CDT Pulse 36.9 C (98.5 F) 05/23/2016 12:54 PM CDT Temperature 16 05/23/2016 12:54 PM CDT Respiratory Rate 97% 11/03/2015 12:58 PM CDT Oxygen Saturation - - Inhaled Oxygen Concentration 92.1 kg (203 lb) 05/23/2016 12:54 PM CDT Weight 163.8 cm (5' 4.5") 05/23/2016 12:54 PM CDT Height 34.31 05/23/2016 12:54 PM CDT Body Mass Index Plan of Treatment Health Maintenance Due Date Last Done Comments DTAP/TDAP VACCINES (1 - 1981 Tdap) PHYSICAL (COMPREHENSIVE) 1988 EXAM CERVICAL CANCER SCREENING 2000 BREAST CANCER SCREENING 2010 INFLUENZA VACCINE 09/19/2018 HIV SCREENING Completed 04/08/2010 Results Not on filefrom Last 3 Months Insurance Type Payer Benefit Subscriber ID Effective Phone Address Plan / Dates Group PPO BCBS [facility] xxxxxxxxxxxx 2014- PREF CARE Present BLUE Medicare MEDICARE MEDICARE xxxxxxxxxx 2004-P PART A resent [phone] Advance Directives Patient Psychological Operations Officer Explanation Type Date Recorded Advance 02/07/2014 4:26 PM Directive/DPOA Date Inactivated Comments Code Status Date Activated 02/08/2014 2:48 PM Full Code 02/07/2014 9:48 PM Provider has discussed Code Status No, more discussi on w/Patient or Family? needed 04/22/2010 4:18 PM Full Code 04/14/2010 2:38 PM Provider has discussed Code Status Yes w/Patient or Family? 04/14/2010 2:38 PM Full Code 04/14/2010 2:36 PM Provider has discussed Code Status Yes w/Patient or Family? 04/10/2010 2:41 PM Full Code 04/06/2010 12:44 AM Provider has discussed Code Status Yes w/Patient or Family?
--- OUTSIDE RECORDS SUMMARY | 2019-02-19 22:03 | XMS REPORT | CCD ---
Author Author Lo Flor D.O. Organization ROSALINE FLOR DO [facility] Address [address] [place] [address] Phone Care Team Providers Care Structurer Name Role Phone Rosaline Flor D.O., PP Unavailable CCM Unavailable Summary Purpose Interface Exchange Insurance Providers Payer name Policy type / Coverage type Covered libertarian ID Effective Begin Date Effective End Date Blue Cross Blue Shield Blue Cross/Bl ue Shield [id number] Un known Family History Family History data not found Social History Social History Element Codes Description Effective Dates Marital status Unknown M arried 12/01/2015 Number of children Unknown 2 12/01/2015 Employment Unknown Disab ility 12/01/[address]: 823291569 Has never smoked or chewed tobacco 12/01/[address]: 064504 Currently drinks alcohol 12/01/2015 Frequency of drinks SNOMED CT: 841855006 Drinks rarely 12/01/2015 Has the patient ever [...] Date Stop Date Sta tus Fill Instructions atorvastatin 10 mg t ablet RxNorm: 642995 1 Tablet(s) PO QD Due for updated labs 10/17/2018 11/15/2018 Ac tive Due for updated labs before 90 day suppl y oxybutynin chloride 5 mg tablet RxNorm: 932396 TAKE 1 TABLET BY MOUT H EVERY DAY AT BEDTIME 08/26/2018 No Stop Date Active amitriptyline 25 mg tablet RxNorm: 031617 1 Tablet(s) PO QHS 07/10/2018 10/07/2018 Inactive atorvastatin 10 mg t ablet RxNorm: 051434 TAKE 1 TABLET BY MOUT H ONCE DAILY 07/10/2018 10/16/2018 In active gabapentin 600 mg ta blet RxNorm: 011633 1 Tablet(s) PO TID 05/01/2018 05/30/2018 Inactive acyclovir 400 mg tablet RxNorm: 379312 1 Tablet(s) PO BID 04/01/2018 12/26/2018 Active mupirocin 2 % topica l ointment RxNorm: 063173 1 Application TOP TID 04/01/2018 04/10/2018 Inactive amitriptyline 25 mg tablet RxNorm: 728577 1 Tablet(s) PO QHS 04/01/2018 06/29/2018 Inactive oxybutynin chloride 5 mg tablet RxNorm: 599791 1 Tablet(s) PO QHS 04/01/2018 07/29/2018 Inactive doxycycline hyclate 100 mg capsule RxNorm: 3042421 1 Capsule(s) PO BID 03/14/2018 03/20/2018 In active atorvastatin 10 mg t ablet RxNorm: 822826 1 Tablet(s) PO QD 02/05/2018 05/05/2018 Inactive atorvastatin 10 mg t ablet RxNorm: 396097 1 Tablet(s) PO QD 02/05/2018 02/04/2018 Inactive pseudoephedrine 30 m g tablet RxNorm: 2304825 1-2 Tablet(s) PO Q6H 02/04/2018 03/05/2018 Inactive cefdinir 300 mg capsule RxNorm: 740690 2 Capsule(s) PO QD 02/04/2018 02/13/2018 Inactive oxybutynin chloride 5 mg tablet RxNorm: 903624 1 Tablet(s) PO QHS 01/23/2018 01/22/2018 Inactive oxybutynin chloride 5 mg tablet RxNorm: 841773 1 Tablet(s) PO QHS 01/23/2018 02/21/2018 Inactive duloxetine 60 mg cap ilda,delayed release RxNorm: 408602 1 Capsule(s) PO QD 01/18/2018 10/14/2018 In active Valtrex 1 gram tablet RxNorm: 986298 1 Tablet(s) PO TID 12/27/2017 12/26/2017 Inactive Lunesta 2 mg tablet RxNorm: 620233 TAKE 1 TABLET BY MOUTH ONCE DAILY AT BED TIME 12/27/2017 03/13/2018 Inactive meclizine 25 mg tablet RxNorm: 129649 1/2-1 Tablet(s) PO Q6H as needed 08/27/2017 03/13/2018 In active duloxetine 60 mg cap ilda,delayed release RxNorm: 946382 1 Capsule(s) PO QD 08/23/2017 11/20/2017 In active Lunesta 2 mg tablet RxNorm: 019905 Tablet(s) TAKE ONE TABLET BY MOUTH AT BE DTIME 08/23/2017 12/27/2017 Inactive Valtrex 1 gram tablet RxNorm: 418969 1 Tablet(s) PO TID 07/02/2017 12/26/2017 Inactive propranolol 60 mg ta blet RxNorm: 800641 1 Tablet(s) PO QHS 06/20/2017 08/26/2017 Inactive Lunesta 2 mg tablet RxNorm: 269210 Tablet(s) TAKE ONE TABLET BY MOUTH AT BE DTIME 06/11/2017 08/22/2017 Inactive acyclovir 200 mg cap ilda RxNorm: 149535 Capsule(s) 2 Capsule( s) BID 2 Capsule(s) PO BID 06/01/2017 07/01/2017 Inactive acyclovir 200 mg cap ilda RxNorm: 316802 Capsule(s) 2 Capsule( s) BID 2 Capsule(s) PO BID 06/01/2017 05/31/2017 Inactive acyclovir 200 mg cap ilda RxNorm: 825527 2 Capsule(s) BID 2 Ca psule(s) PO BID 04/20/2017 06/01/2017 In active duloxetine 60 mg cap ilda,delayed release RxNorm: 248265 1 Capsule(s) PO QD 04/19/2017 08/23/2017 In active propranolol 60 mg ta blet RxNorm: 180016 1 Tablet(s) PO QHS 04/10/2017 06/20/2017 Inactive Lunesta 2 mg tablet RxNorm: 022714 TAKE ONE TABLET BY MOUTH AT BEDTIME 04/09/2017 06/10/2017 In active propranolol 60 mg ta blet RxNorm: 114947 1 Tablet(s) PO QHS 03/06/2017 04/04/2017 Inactive Lunesta 2 mg tablet RxNorm: 298935 1 Tablet(s) PO QHS 01/31/2017 04/09/2017 Inactive acyclovir 200 mg cap ilda RxNorm: 863030 2 Capsule(s) BID 2 Ca psule(s) PO BID 01/31/2017 03/31/2017 In active propranolol 40 mg ta blet RxNorm: 362310 1 Tablet(s) PO BID 12/26/2016 12/26/2016 Inactive amitriptyline 25 mg tablet RxNorm: 844756 1 Tablet(s) PO QHS 12/12/2016 12/25/2016 Inactive amitriptyline 25 mg tablet RxNorm: 439578 1 Tablet(s) PO QHS 12/06/2016 12/11/2016 Inactive amitriptyline 25 mg tablet RxNorm: 193828 1 Tablet(s) PO QHS 12/06/2016 12/05/2016 Inactive amitriptyline 10 mg tablet RxNorm: 007603 1 Tablet(s) PO QHS 11/29/2016 12/05/2016 Inactive duloxetine 60 mg cap ilda,delayed release RxNorm: 157343 1 Capsule(s) PO QD 11/29/2016 04/19/2017 In active Cymbalta 20 mg capsu le,delayed release RxNorm: 756532 2 Capsule(s) PO QD 11/29/2016 11/29/2016 In active Mobic 15 mg tablet RxNorm: 012195 1 Tablet(s) PO QD 11/16/2016 11/28/2016 Inactive acyclovir 200 mg cap ilda RxNorm: 960675 2 Capsule(s) BID 2 Ca psule(s) PO BID 11/15/2016 01/13/2017 In active Cymbalta 30 mg capsu le,delayed release RxNorm: 856282 1 Capsule(s) PO QD 10/30/2016 11/28/2016 In active acyclovir 200 mg cap ilda RxNorm: 221889 2 Capsule(s) BID 2 Ca psule(s) PO BID 08/01/2016 09/29/2016 In active Cymbalta 20 mg capsu le,delayed release RxNorm: 171815 1 Capsule(s) PO QD 08/01/2016 2016 In active Cymbalta 20 mg capsu le,delayed release RxNorm: 731367 1 Capsule(s) PO QD 06/27/2016 07/31/2016 In active acyclovir 200 mg cap ilda RxNorm: 248049 2 Capsule(s) PO BID 04/12/2016 06/10/2016 Inactive Cymbalta 60 mg capsu le,delayed release RxNorm: 380486 1 Capsule(s) PO QD 02/28/2016 06/26/2016 In active amitriptyline 50 mg tablet RxNorm: 017427 1 Tablet(s) PO QHS fo r sleep 02/28/2016 06/26/2016 In active Lyrica 150 mg capsule RxNorm: 843970 TAKE ONE CAPSULE BY MOUTH TWICE DAILY 02/04/2016 02/04/2016 In active Lyrica 150 mg capsule RxNorm: 649275 TAKE ONE CAPSULE BY MOUTH TWICE DAILY 02/04/2016 06/26/2016 In active meloxicam 7.5 mg tablet RxNorm: 033129 1 Tablet(s) PO QD 01/26/2016 06/26/2016 Inactive acyclovir 800 mg tablet RxNorm: 448321 1 Tablet(s) PO 01/24/2016 12/27/2017 Inactive acyclovir 200 mg cap ilda RxNorm: 769032 2 Capsule(s) PO BID 01/18/2016 03/17/2016 Inactive Lyrica 150 mg capsule RxNorm: 678383 TAKE ONE CAPSULE BY MOUTH TWICE DAILY 01/04/2016 02/04/2016 In active Cymbalta 60 mg capsu le,delayed release RxNorm: 778561 1 Capsule(s) PO QD 12/23/2015 02/20/2016 In active Cymbalta 30 mg capsu le,delayed release RxNorm: 573929 1 Capsule(s) PO QD fo r 1 week then increase to 2 po daily 12/13/2015 12/22/2015 Inactive acyclovir 200 mg cap ilda RxNorm: 616376 2 Capsule(s) PO BID 12/10/2015 01/08/2016 Inactive Cymbalta 30 mg capsu le,delayed release RxNorm: 971468 1 Capsule(s) PO QD fo r 1 week then increase to 2 po daily 12/01/2015 12/12/2015 Inactive Lyrica 150 mg capsule RxNorm: 891673 1 Capsule(s) PO BID 12/01/2015 01/04/2016 Inactive Vitamin D2 50,000 un it capsule RxNorm: 536458 1 Capsule(s) PO QW 12/01/2015 01/23/2016 Inactive MS Contin 30 mg tabl et,extended release RxNorm: 904563 1 Tablet(s) PO BID (m orning and 1 pm) 12/01/2015 12/01/2015 Inactive amitriptyline 50 mg tablet RxNorm: 778562 1 Tablet(s) PO QHS fo r sleep 12/01/2015 02/27/2016 In active melatonin 10 mg tablet RxNorm: 2190967 1 Tablet(s) PO QD No Start Date Active acyclovir 800 mg tablet RxNorm: 784411 1 Tablet(s) PO five times daily No Start Date Active omega 3 500 mg-dha-e pa-B12 500 mcg-FA 1 mg-B6 12.5 mg- phytosterol cap RxNorm: 341496 1 Capsule(s) PO QD No Start Date Active carbamazepine 200 mg tablet RxNorm: 899945 1 Tablet(s) PO BID No Start Date Active Sudogest 30 mg tablet RxNorm: 7564147 1 Tablet(s) PO Q6H as needed No Start Date Active Vitamin D3 5,000 uni t tablet RxNorm: 026952 1 Tablet(s) PO QD No Start Date Active oxycodone-acetaminop hen 5 mg-325 mg tablet RxNorm: 3305322 1 Tablet(s) PO Q4H a s needed No Start Date Active amitriptyline 10 mg tablet RxNorm: 387221 1 Tablet(s) PO QHS No Start Date 03/31/2018 Inactive oxybutynin chloride 5 mg tablet RxNorm: 231583 1 Tablet(s) PO QHS No Start Date 03/31/2018 Inactive Vitamin D2 50,000 un it capsule RxNorm: 1641195 1 Capsule(s) PO QW No Start Date 03/13/2018 Inactive Valtrex 1 gram tablet RxNorm: 273675 1 Tablet(s) PO TID No Start Date 07/01/2017 Inactive meloxicam 7.5 mg tablet RxNorm: 102187 1 Tablet(s) PO QD No Start Date 01/25/2016 Inactive Mobic 15 mg tablet RxNorm: 636562 1 Tablet(s) PO QD No Start Date 11/15/2016 Inactive Lyrica 100 mg capsule RxNorm: 375743 1 Capsule(s) PO BID No Start Date 04/09/2017 Inactive Wellbutrin XL 150 mg 24 hr tablet, extended release RxNorm: 262539 1 Tablet(s) PO QD No Start Date 11/30/2015 Inactive Premarin 0.625 mg ta blet RxNorm: 361206 1 Tablet(s) PO QD No Start Date 01/23/2016 Inactive Vitamin D3 5,000 uni t tablet RxNorm: 869489 1 Tablet(s) PO QD No Start Date 08/26/2017 Inactive melatonin 10 mg tablet RxNorm: 7071683 1 Tablet(s) PO QD No Start Date 11/28/2016 Inactive gabapentin 600 mg ta blet RxNorm: 373348 1 Tablet(s) PO TID No Start Date 04/30/2018 Inactive Lunesta 2 mg tablet RxNorm: 761624 1 Tablet(s) PO QHS No Start Date 01/30/2017 Inactive melatonin 3 mg tablet RxNorm: 648215 2 Tablet(s) PO QHS No Start Date 2016 Inactive propranolol 40 mg ta blet RxNorm: 193733 1 Tablet(s) PO QD No Start Date 01/30/2017 Inactive Elavil 25 mg tablet RxNorm: 634598 1 Tablet(s) PO QD No Start Date 11/28/2016 Inactive carbamazepine ER 200 mg tablet,extended release,12 hr RxNorm: 707587 1 Tablet(s) PO BID No Start Date 03/13/2018 Inactive acyclovir 200 mg cap ilda RxNorm: 163065 2 Capsule(s) PO BID No Start Date 12/09/2015 Inactive scopolamine 1 mg ove r 3 days transdermal patch RxNorm: 975939 TD No Start Date 08/26/2017 Inactive propranolol 40 mg ta blet RxNorm: 432290 1 Tablet(s) PO BID No Start Date 12/25/2016 Inactive gabapentin 300 mg ca psule RxNorm: 095890 1 Capsule(s) PO QD No Start Date 01/30/2017 Inactive Zofran 4 mg tablet RxNorm: 748844 1 Tablet(s) PO QD No Start Date [...] Rocephin IM follow up 04/01/2018 2 w kenaitze follow up 03/14/2018 Hos pital fwup otalgia [...] New Patient---establishing visit, Patient has been to [facility] and Results Observation Observation Code Item Item Code Result Date COMPREHENSIVE METABOLIC 35483 AST 12 U/L 05/07/2017 COMPREHENSIVE METABOLIC 25307 ALT 11 U/L 05/07/2017 COMPREHENSIVE METABOLIC 78968 BUN 12 mg/dL 05/07/2017 COMPREHENSIVE METABOLIC 73395 ALBUMIN 4.4 g/dL 05/07/2017 COMPREHENSIVE METABOLIC 70666 CHLORIDE 102 mmol/L 05/07/2017 COMPREHENSIVE METABOLIC 29434 Bili Total 0.5 mg/dL 05/07/2017 COMPREHENSIVE METABOLIC 19990 ALK PHOS 74 U/L 05/07/2017 COMPREHENSIVE METABOLIC 45918 SODIUM 134 mmol/L 05/07/2017 COMPREHENSIVE METABOLIC 84901 CREATININE 0.84 mg/dL 05/07/2017 COMPREHENSIVE METABOLIC 03211 CALCIUM 9.4 mg/dL 05/07/2017 COMPREHENSIVE METABOLIC 72184 POTASSIUM 3.9 mmol/L 05/07/2017 COMPREHENSIVE METABOLIC 55646 Total Protein 7.4 g/dL 05/07/2017 COMPREHENSIVE METABOLIC 52698 Glucose 99 mg/dL 05/07/2017 COMPREHENSIVE METABOLIC 85266 Bicarbonate 24 mmol/L 05/07/2017 COMPREHENSIVE METABOLIC 84297 AGAP 8 mmol/L 05/07/2017 GFR CALC 9184476 GFR Non Afr Amr >60 mL/min 05/07/2017 GFR CALC 1579082 GFR Afr Amr >60 mL/min 05/07/2017 THYROID STIMULATING HORMONE 13714 TSH 2.409 uIU/mL 8 ERYTHROCYTE SEDIMENTATION RATE 81571 Sed Rate 26 mm/hr 05/07/2017 COMPLETE BLOOD COUNT 6644225 WBC 5.6 10e9/L 05/07/2017 COMPLETE BLOOD COUNT 6208096 RBC 4.49 10e12/L 8 COMPLETE BLOOD COUNT 8316373 HEMOGLOBIN 13.8 g/dL 05/07/2017 COMPLETE BLOOD COUNT 7788607 HEMATOCRIT 41.3 % 05/07/2017 COMPLETE BLOOD COUNT 6622734 MCV 92.0 fL 05/07/2017 COMPLETE BLOOD COUNT 3196017 MCH 30.7 pg 05/07/2017 COMPLETE BLOOD COUNT 1194533 MCHC 33.4 g/dL 05/07/2017 COMPLETE BLOOD COUNT 1240918 PLATELET COUNT 299 10e9/L 05/07/2017 COMPLETE BLOOD COUNT 0196405 Mean Plt Volume 8.3 fL 05/07/2017 COMPLETE BLOOD COUNT 4490397 Neut Auto 61.1 % 05/07/2017 COMPLETE BLOOD COUNT 0768199 Lymph Auto 27.5 % 05/07/2017 COMPLETE BLOOD COUNT 8962302 [place] Auto 7.6 % 05/07/2017 COMPLETE BLOOD COUNT 8785430 RDW 13.0 % 05/07/2017 COMPLETE BLOOD COUNT 9155446 Eos Auto 3.6 % 05/07/2017 COMPLETE BLOOD COUNT 1393571 Baso Auto 0.2 % 05/07/2017 COMPLETE BLOOD COUNT 6241148 Neutrophil Abs 3.42 10e9/L 05/07/2017 COMPLETE BLOOD COUNT 8597917 Lymphocyte Abs 1.54 10e9/L 05/07/2017 COMPLETE BLOOD COUNT 8711731 Monocyte Abs 0.43 10e9/L 05/07/2017 COMPLETE BLOOD COUNT 6205665 Eosinophil Abs 0.20 10e9/L 05/07/2017 COMPLETE BLOOD COUNT 6369679 RDW-SD 42.5 fL 05/07/2017 COMPLETE BLOOD COUNT 1933741 Basophil Abs 0.01 10e9/L 05/07/2017 VITAMIN D TOTAL (25 HYDROXY) 95316 Vitamin D 25 OH 22 ng/mL 6 [...] sinusitis 08/27/2017 Neurologic dizziness 10/2017 Neurologic headache 07/10/2017 Neurologic No memory loss 08/27/2017 Neurologic No [...] - General Neurologic mental status Overall: alert 201 7 None Full Exam - General Neurologic [...] CPT-4: J0696 04/02/2018 THER/PROPH/DIAG INJ SC/IM CPT-4: 63537 04/02/2018 CEFTRIAXONE SODIUM I NJECTION CPT-4: J0696 04/01/2018 THER/PROPH/DIAG INJ SC/IM CPT-4: 58767 04/01/2018 THER/PROPH/DIAG INJ SC/IM CPT-4: 58073 02/04/2018 TRIAMCINOLONE ACET I NJ NOS CPT-4: J3301 02/04/2018 DEXAMETHASONE SODIUM PHOS CPT-4: J1100 02/04/2018 URINALYSIS NONAUTO W /O SCOPE CPT-4: 39678 01/18/2018 URINE CULTURE/ COLON Y COUNT CPT-4: 20895 01/18/2018 THER/PROPH/DIAG INJ SC/IM CPT-4: 08265 08/27/2017 TRIAMCINOLONE ACET I NJ NOS CPT-4: J3301 08/27/2017 DEXAMETHASONE SODIUM PHOS CPT-4: J1100 08/27/2017 PRESCRIP TRANSMIT A ERX SY CPT-4: G8553 08/27/2017 THER/PROPH/DIAG INJ SC/IM CPT-4: 06767 05/07/2017 KETOROLAC TROMETHAMI NE INJ CPT-4: J1885 05/07/2017 THER/PROPH/DIAG INJ SC/IM CPT-4: 04904 05/07/2017 PROMETHAZINE HCL INJ ECTION CPT-4: J2550 05/07/2017 PRESCRIP TRANSMIT A ERX SY CPT-4: G8553 04/10/2017 PRESCRIP TRANSMIT A ERX SY CPT-4: G8553 03/06/2017 PRESCRIP TRANSMIT A ERX SY CPT-4: G8553 01/31/2017 PRESCRIP TRANSMIT A ERX SY CPT-4: G8553 11/29/2016 PRESCRIP TRANSMIT A ERX SY CPT-4: G8553 10/30/2016 PRESCRIP TRANSMIT A ERX SY CPT-4: G8553 06/27/2016 ROUTINE VENIPUNCTURE CPT-4: 75446 01/24/2016 VITAMIN D TOTAL (25 HYDROXY) CPT-4: 51231 01/24/2016 PRESCRIP TRANSMIT A ERX SY CPT-4: [...] 1: 126/86 Code: 8480-6 BMI: 36.0 Code: 08476-3 Heart Rate 1: 92 bpm Height: 5'4" Respiratory Rate: 18 bpm SpO2: 97% Temperature: 36.8 (C ) / 98.3 (F) Weight: 210 lbs 08/27/2017 Blood Pressure 1: 132/92 Code: 8480-6 Heart Rate 1: 92 bpm Respiratory Rate: 18 bpm SpO2: 98% Temperature: 36.9 (C ) / 98.4 (F) Weight: 205 lbs 05/07/2017 Blood Pressure 1: 106/80 Code: 8480-6 BMI: 35.7 Code: 56893-0 Heart Rate 1: 84 bpm Height: 5'4" Respiratory Rate: 20 bpm SpO2: 96% Temperature: 36.7 (C ) / 98.1 (F) Weight: 208 lbs 04/10/2017 Blood Pressure 1: 124/82 Code: 8480-6 Heart Rate 1: 76 bpm Height: 5'4" Respiratory Rate: 20 bpm Temperature: 36.8 (C ) / 98.2 (F) 03/06/2017 Blood Pressure 1: 124/90 Code: 8480-6 BMI: 36.4 Code: 60502-1 Heart Rate 1: 88 bpm Height: 5'4" Respiratory Rate: 20 bpm SpO2: 98% Temperature: 36.9 (C ) / 98.4 (F) Weight: 212 lbs 01/31/2017 Blood Pressure 1: 124/78 Code: 8480-6 BMI: 35.4 Code: 21880-3 Heart Rate 1: 80 bpm Height: 5'4" Respiratory Rate: 20 bpm Temperature: 36.6 (C ) / 97.8 (F) Weight: 206 lbs 11/29/2016 Blood Pressure 1: 134/84 Code: 8480-6 BMI: 35.4 Code: 23272-2 Heart Rate 1: 88 bpm Height: 5'4" Respiratory Rate: 20 bpm Temperature: 37.0 (C ) / 98.6 (F) Weight: 206 lbs 10/30/2016 Blood Pressure 1: 134/90 Code: 8480-6 BMI: 35.0 Code: 27977-1 Heart Rate 1: 96 bpm Height: 5'4" Respiratory Rate: 20 bpm Temperature: 36.8 (C ) / 98.3 (F) Weight: 204 lbs 08/01/2016 Blood Pressure 1: 120/82 Code: 8480-6 Heart Rate 1: 84 bpm Height: 5'4" Respiratory Rate: 20 bpm SpO2: 98% Temperature: 36.0 (C ) / 96.8 (F) 06/27/2016 Blood Pressure 1: 134/80 Code: 8480-6 BMI: 35.0 Code: 34227-8 Heart Rate 1: 76 bpm Height: 5'4" Respiratory Rate: 20 bpm Temperature: 36.8 (C ) / 98.3 (F) Weight: 204 lbs 01/24/2016 Blood Pressure 1: 114/78 Code: 8480-6 BMI: 34.7 Code: 96266-5 Heart Rate 1: 100 bpm Height: 5'4" Respiratory Rate: 20 bpm Temperature: 36.8 (C ) / 98.3 (F) Weight: 202 lbs 12/23/2015 Blood Pressure 1: 118/74 Code: 8480-6 BMI: 33.5 Code: 12380-6 Heart Rate 1: 76 bpm Height: 5'4" Respiratory Rate: 20 bpm Temperature: 37.1 (C ) / 98.7 (F) Weight: 195 lbs 12/01/2015 Blood Pressure 1: 106/74 Code: 8480-6 BMI: 31.8 Code: 01890-3 Heart Rate 1: 80 bpm Height: 5'4" [...] of emotion Quality worsening 05/07/2017 Patient lost cyMPVta and insurance not covering at this point [...] during adulthood 08/01/2016 None 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 06/27/2016 Recurrent herpetic lesion skin lesion [...] seem groggy the next day paresthesia 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 12/01/2015 None paresthesia Quality burn ing [...] Encounters Encounter Performer Loca tion Codes Date ([id number]) NURSE/OUTPAT IENT VISIT EST Diagnosis: Acute sinusitis, unspecified[ICD10: J01.90] [facility] CPT-4: 37961 04/02/2018 ([id number]) OFFICE/OUTPA TIENT VISIT EST Diagnosis: Pain in right wrist[ICD10: M25.531] Diagnosis: Disorder of the skin and subcutaneous tissue, unspecified[ICD10: L98.9] Diagnosis: Other acute sinusitis[ICD10: J01.80] Diagnosis: Other insomnia[ICD10: G47.09] Rachael FLOR DO [facility] CPT-4: 05444 04/01/2018 ([id number]) OFFICE/OUTPA TIENT VISIT EST Diagnosis: Postherpetic trigeminal neuralgia[ICD10: B02.22] Diagnosis: Acute sinusitis, unspecified[ICD10: J01.90] Rosaline Phankimo [facility] CPT-4: 97101 03/14/2018 ([id number]) OFFICE/OUTPA TIENT VISIT EST Diagnosis: Acute sinusitis, unspecified[ICD10: J01.90] Diagnosis: Encounter for screening for cardiovascular disorders[ICD10: Z13.6] Diagnosis: Encounter for screening for lipoid disorders[ICD10: Z13.220] Rachael FLOR DO [employer] CPT-4: 33875 02/04/2018 ([id number]) OFFICE/OUTPA TIENT VISIT EST Diagnosis: Left lower quadrant pain[ICD10: R10.32] Diagnosis: Urgency of urination[ICD10: R39.15] Rachael DAMON ER [employer] CPT-4: 77542 01/18/2018 ([id number]) OFFICE/OUTPA TIENT VISIT EST Diagnosis: Benign paroxysmal vertigo, right ear[ICD10: H81.11] Rachael DAMON ER DO [employer] CPT-4: 45388 08/27/2017 ([id number]) OFFICE/OUTPA TIENT VISIT EST Diagnosis: Generalized abdominal pain[ICD10: R10.84] Diagnosis: Headache[ICD10: R51] Diagnosis: Dizziness and giddiness[ICD10: R42] Diagnosis: Unspecified adverse effect of drug or medicament, initial encounter[ICD10: T88.7XXA] Diagnosis: Nausea[ICD10: R11.0] Rosaline FLOR DO [facility] CPT-4: 07866 05/07/2017 ([id number]) OFFICE/OUTPA TIENT VISIT EST Diagnosis: Tinnitus, right ear[ICD10: H93.11] Diagnosis: Stricture of artery[ICD10: I77.1] Diagnosis: Headache[ICD10: R51] Diagnosis: Dizziness and giddiness[ICD10: R42] Rosaline ERVIN [facility] CPT-4: 98574 04/10/2017 ([id number]) OFFICE/OUTPA TIENT VISIT EST Diagnosis: Dizziness and giddiness[ICD10: R42] Diagnosis: Headache[ICD10: R51] Diagnosis: Tinnitus, right ear[ICD10: H93.11] Rosaline ERVIN DO [facility] CPT-4: 46274 03/06/2017 ([id number]) OFFICE/OUTPA TIENT VISIT EST Diagnosis: Postherpetic trigeminal neuralgia[ICD10: B02.22] Diagnosis: Headache[ICD10: R51] Diagnosis: Dizziness and giddiness[ICD10: R42] Rosaline ERVIN [facility] CPT-4: 33862 01/31/2017 ([id number]) OFFICE/OUTPA TIENT VISIT EST Diagnosis: Headache[ICD10: R51] Diagnosis: Major depressive disorder, recurrent, unspecified[ICD10: F33.9] Diagnosis: Personal history of malignant melanoma of skin[ICD10: Z85.820] Rosaline FLOR [facility] CPT-4: 39861 11/29/2016 ([id number]) OFFICE/OUTPA TIENT VISIT EST Diagnosis: Major depressive disorder, recurrent, unspecified[ICD10: F33.9] Diagnosis: Postherpetic trigeminal neuralgia[ICD10: B02.22] Diagnosis: URI, ACUTE[ICD10: J06.9] Rosaline FLOR DO [facility] CPT-4: 15442 10/30/2016 ([id number]) OFFICE/OUTPA TIENT VISIT EST Diagnosis: Unspecified perichondritis of right external ear[ICD10: H61.001] Diagnosis: Major depressive disorder, recurrent, unspecified[ICD10: F33.9] Rosaline FLOR [employer] [facility] CPT-4: 91758 08/01/2016 ([id number]) OFFICE/OUTPA TIENT VISIT EST Diagnosis: Unspecified perichondritis of right external ear[ICD10: H61.001] Diagnosis: 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] Diagnosis: Major depressive disorder, recurrent, unspecified[ICD10: F33.9] Diagnosis: Vitamin D deficiency, unspecified[ICD10: E55.9] Rosaline ERVIN [employer] CPT-4: 16486 06/27/2016 ([id number]) OFFICE/OUTPA TIENT VISIT EST Diagnosis: Fibromyalgia[ICD10: M79.7] Diagnosis: Vitamin D deficiency, unspecified[ICD10: E55.9] Diagnosis: 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] Rosaline Basia LIZARRAGALINE Geeta ERVIN [employer] CPT-4: 03058 01/24/2016 OFFICE/OUTPATIENT SIT EST Diagnosis: Opioid dependence, uncomplicated[ICD10: F11.20] Diagnosis: Fibromyalgia[ICD10: M79.7] Diagnosis: Major depressive disorder, recurrent, unspecified[ICD10: F33.9] Rosalienrhina FLOR [employer] CPT-4: 09803 12/23/2015 OFFICE/OUTPATIENT SIT NEW Diagnosis: Fibromyalgia[ICD10: M79.7] Diagnosis: Primary insomnia[ICD10: F51.01] Diagnosis: Opioid dependence, uncomplicated[ICD10: F11.20] Diagnosis: Major depressive disorder, recurrent, unspecified[ICD10: F33.9] Diagnosis: Viral intestinal infection, unspecified[ICD10: A08.4] Rosaline Basia ERVIN [employer] CPT-4: 53771 12/01/2015 Plan of Care Planned Activity Notes C odes Status Date Appointment: [facility] [phone] [facility] [facility] 04/02/2018 Visit Diagnosis Plan: Pain [...] ICD-10 : G47.09 04/01/2018 Appointment: Rachael Anderson [address] [place], [place] [id number] FOLLOW UP 04/01/2018 Patient Education: mupirocin- [employer] Coupon [id number] [email or web address]>Point/samplemd/resources/getResource/[email or web address] Completed 04/01/2018 Patient Education: amitriptyline- [employer] Coupon [phone] [id number] [email or web address].Cell>Point/samplemd/resources/getResource/61/[email or web address] Completed 04/01/2018 Patient Education: oxybutynin chloride- [employer] Coupon [id number] [email or web address].Cell>Point/samplemd/resources/getResource/61/[email or web address] [id number].pdf Completed 04/01/2018 [phone] [facility] [facility] 03/28/2018 Visit Diagnosis Plan: [...] B02.22 03/14/2018 Appointment: Rosaline Flor WPtel: [phone] [facility] Hospital Follow Up 03/14/2018 Patient Education: doxycycline hyclate- [employer] Coupon [id number] https://www.VHT/[employer]/resources/getResource/61/[id number].pdf Completed 03/14/2018 Visit Diagnosis Plan: Acute sinusitis, [...] disorders Discussion: lipids to be added onto [employer] work from last week. ICD-9 : V77.91 ICD-10 : Z13.220 02/04/2018 Appointment: Rachael Anderson [address] [place], [place] [id number] ACUTE [facility] 02/04/2018 Visit Diagnosis Plan: [...] ICD-10 : R10.32 01/18/2018 Appointment: Rachael Anderson [address] [place] [address] ACUTE ILLNESS 01/18/2018 Care Plan: US EXAM PELVIC COMPLETE Pending 01/18/2018 Visit Diagnosis Plan: Benign paroxysmal vertigo, right ear Discussion: 40 mg kenalog/4 mg dexa given in office. meclizine prescribed to be taken prn dizziness. call or rtc if no improvement or worsening symptoms. ICD-9 : 386.11 ICD-10 : H81.11 08/27/2017 Appointment: Rachael Anderson [address] [place] [address] ACUTE ILLNESS 08/27/2017 Patient Education: Patient Medication [...] 787.02 ICD-10 : R11.0 05/07/2017 Appointment: Rosaline Florl: [phone] [facility] [id number] [place] 05/07/2017 Patient Education: Patient Medication Summary Completed 05/07/2017 Patient Education: Patient Medication Summary Completed 05/07/2017 Care Plan: COMPREHEN METABOLIC PANEL LOINC : 07042-2 Pending 05/07/2017 Care Plan: ASSAY THYROID STIM HORMONE Pending 05/07/2017 Care Plan: RBC SED RATE AUTOMATED Pending 05/07/2017 Visit Diagnosis Plan: Tinnitus, right ear Discussion: 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 ICD-9 : 388.30 ICD-10 : H93.11 04/10/2017 Visit Diagnosis Plan: Headache Discu ssion: Referral to Neurology ICD-9 : 784.0 ICD-10 : R51 04/10/2017 Appointment: Rosaline Flor WPtel: [facility] [facility] 04/10/2017 Patient Education: Patient Medication Summary Completed 04/10/2017 Patient Education: Patient Medication Summary Completed 04/02/2017 Care Plan: US EXAM OF HEAD AND NECK right subclavian/vertebral artery Pending 04/02/2017 Patient Education: Patient Medication Summary Completed 03/26/2017 Care Plan: MR ANGIOGRAPHY NECK W/O DYE LOINC : 40589-3 Pending 03/26/2017 Care Plan: MR ANGIOGRAPHY HEAD W/O DYE LOINC : 54532-5 Pending 03/26/2017 Visit Diagnosis Plan: Headache Discu [...] : H93.11 03/06/2017 Appointment: Rosaline Flor WPtel: [facility] [facility] Confirmed-03/05/2017-KB FOLLOW UP 03/06/2017 [...] : R51 01/31/2017 Appointment: Rosaline Flor WPtel: [address] [place] [address] ACUTE ILLNESS 01/31/2017 Patient Education: Patient Medication Summary Completed 01/31/2017 Visit Diagnosis Plan: Major depressive d isorder, recurrent, unspecified Discussion: Increase cymbalta to 60mg da sang ICD-9 : 296.30 ICD-10 : F33.9 11/29/2016 Visit Diagnosis Plan: Headache Discu ssion: DC mobic since has not helped Check CT of Brain due to history of melanoma Add elavil 10mg q HS ICD-9 : 784.0 ICD-10 : R51 11/29/2016 Visit Diagnosis Plan: Personal history o f malignant melanoma of skin Discussion: Check CT scan of neck ICD-9 : V10.82 ICD-10 : Z85.820 11/29/2016 Appointment: Rosaline Flor WPtel: [address] [place], [place] [id number] FOLLOW UP 11/29/2016 Patient Education: Patient Medication [...] : B02.22 10/30/2016 Appointment: Rosaline Flor WPtel: [phone] [facility] [place] FOLLOW UP 10/30/2016 Patient Education: Patient Medication Summary Completed 10/30/2016 Patient Education: [facility] - Saving AutoInj - Cymbalta - 18-64 - Dynamic Portal ID Completed 10/30/2016 Referral: Isaias Hobson WPtel: [address] [place], [place] [phone] [place] Referral Initiated 08/05/2016 Visit Diagnosis Plan: [...] : H61.001 08/01/2016 Appointment: Rosaline Flor WPtel: [address] [place], [place] [phone] 07/31busy ` 08/01 confirmed~sl FOLLOW UP 08/01/2016 Patient Education: Patient Medication Summary Completed 08/01/2016 Care Plan: Referral Order SNOMED-CT : [id number] Pending 08/01/2016 Visit Diagnosis Plan: Major depressive [...] : B00.1 06/27/2016 Appointment: Rosaline Flor WPtel: [address] [place], [place] [id number] 06/26 confirmed-sp ER Follow UP 06/27/2016 Patient Education: Patient Medication Summary Completed 06/27/2016 Care Plan: DXA BONE DENSITY AXIAL LOINC : 59022-3 Pending 06/27/2016 Appointment: Rosaline Flor WPtel: [address] [place], [place] [phone] 06/13 lm`sl ACUTE ILLNESS 06/14/2016 Appointment: Rosaline Flor WPtel: [address] [place], [place] [phone] 06/12 lm~sl 06/12 rescheudle~sl RESCHEDULED 06/13/2016 Appointment: Rosaline Flor WPtel: [address] [place], [place] [phone] 04/13 confirmed `sl 04/17/2016 Patient Education: Patient Medication Summary Completed 03/02/2016 Care Plan: URINALYSIS AUTO W/O SCOPE LOINC : 02828-3 Pending 03/02/2016 Visit Plan: Check Vitamin D [...] on symptoms 01/24/2016 Appointment: Rosaline Flor WPtel: [address] [place], [place] [phone] 01/19 lm `sl 01/20 busy busy~sl 01/23 [...] aquatherapy 12/23/2015 Appointment: Rosaline Flor WPtel: [phone] [facility] 12/21 lm~sl 12/22 confirmed ~sl FOLLOW UP [...] or persists Reviewed patient's medical records from [facility] Patient follows routinely with Dr. Sprague for history of melanoma 12/01/2015 Appointment: Rosaline Flor WPtel: [address] [place] [address] 11/29 confirmed~sl NEW PATIENT 12/01/2015 Patient Education: Patient Medication Summary Completed 12/01/2015 Patient Education: [facility] - Saving AutoInj - Cymbalta - 18-64 - Dynamic Portal ID Completed 12/01/2015 Patient Education: Lyrica - 18+ - No [place] Completed 12/01/2015 Patient Education: [facility] - Saving AutoInj - 18-64 - Dynamic Portal ID Completed 12/01/2015 Referral: Isaias Hobson WPtel: [address] Referral Appointment Requested Instructions Comment . [...] or persists Reviewed patient's medical records from [facility] Patient follows routinely [...]
--- OUTSIDE RECORDS SUMMARY | 2019-02-19 22:03 | XMS REPORT | CCD ---
Author Author Lo Flor D.O. 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 Name Role Phone Rosaline Flor D.O., PP Unavailable CCM Unavailable Summary Purpose Interface Exchange Insurance Providers Payer name Policy type / Coverage type Covered libertarian ID Effective Begin Date Effective End Date Blue Cross Blue Shield Blue Cross/Bl ue Shield [id number] Un known Family History Family History data not found Social History Social History Element Codes Description Effective Dates Marital status Unknown M arried 12/01/2015 Number of children Unknown 2 12/01/2015 Employment Unknown Disab ility 12/01/[address]: 442428453 Has never smoked or chewed tobacco 12/01/[address]: 380334 Currently drinks alcohol 12/01/2015 Frequency of drinks SNOMED CT: 769134239 Drinks rarely 12/01/2015 Has the patient ever [...] Date Stop Date Sta tus Fill Instructions oxybutynin chloride 5 mg tablet RxNorm: 414307 TAKE 1 TABLET BY MOUT H EVERY DAY AT BEDTIME 08/26/2018 No Stop Date Active amitriptyline 25 mg tablet RxNorm: 582087 1 Tablet(s) PO QHS 07/10/2018 10/07/2018 Active atorvastatin 10 mg t ablet RxNorm: 570294 TAKE 1 TABLET BY MOUT H ONCE DAILY 07/10/2018 No Stop Date Active gabapentin 600 mg ta blet RxNorm: 349511 1 Tablet(s) PO TID 05/01/2018 05/30/2018 Inactive acyclovir 400 mg tablet RxNorm: 925668 1 Tablet(s) PO BID 04/01/2018 12/26/2018 Active mupirocin 2 % topica l ointment RxNorm: 804373 1 Application TOP TID 04/01/2018 04/10/2018 Inactive amitriptyline 25 mg tablet RxNorm: 255070 1 Tablet(s) PO QHS 04/01/2018 06/29/2018 Inactive oxybutynin chloride 5 mg tablet RxNorm: 214551 1 Tablet(s) PO QHS 04/01/2018 07/29/2018 Inactive doxycycline hyclate 100 mg capsule RxNorm: 5427808 1 Capsule(s) PO BID 03/14/2018 03/20/2018 In active atorvastatin 10 mg t ablet RxNorm: 219085 1 Tablet(s) PO QD 02/05/2018 05/05/2018 Inactive atorvastatin 10 mg t ablet RxNorm: 789159 1 Tablet(s) PO QD 02/05/2018 02/04/2018 Inactive pseudoephedrine 30 m g tablet RxNorm: 2367356 1-2 Tablet(s) PO Q6H 02/04/2018 03/05/2018 Inactive cefdinir 300 mg capsule RxNorm: 957823 2 Capsule(s) PO QD 02/04/2018 02/13/2018 Inactive oxybutynin chloride 5 mg tablet RxNorm: 488287 1 Tablet(s) PO QHS 01/23/2018 01/22/2018 Inactive oxybutynin chloride 5 mg tablet RxNorm: 920066 1 Tablet(s) PO QHS 01/23/2018 02/21/2018 Inactive duloxetine 60 mg cap ilda,delayed release RxNorm: 465303 1 Capsule(s) PO QD 01/18/2018 10/14/2018 Ac tive Valtrex 1 gram tablet RxNorm: 869354 1 Tablet(s) PO TID 12/27/2017 12/26/2017 Inactive Lunesta 2 mg tablet RxNorm: 814717 TAKE 1 TABLET BY MOUTH ONCE DAILY AT BED TIME 12/27/2017 03/13/2018 Inactive meclizine 25 mg tablet RxNorm: 655594 1/2-1 Tablet(s) PO Q6H as needed 08/27/2017 03/13/2018 In active duloxetine 60 mg cap ilda,delayed release RxNorm: 195914 1 Capsule(s) PO QD 08/23/2017 11/20/2017 In active Lunesta 2 mg tablet RxNorm: 048403 Tablet(s) TAKE ONE TABLET BY MOUTH AT BE DTIME 08/23/2017 12/27/2017 Inactive Valtrex 1 gram tablet RxNorm: 795300 1 Tablet(s) PO TID 07/02/2017 12/26/2017 Inactive propranolol 60 mg ta blet RxNorm: 454087 1 Tablet(s) PO QHS 06/20/2017 08/26/2017 Inactive Lunesta 2 mg tablet RxNorm: 064391 Tablet(s) TAKE ONE TABLET BY MOUTH AT BE DTIME 06/11/2017 08/22/2017 Inactive acyclovir 200 mg cap ilda RxNorm: 660082 Capsule(s) 2 Capsule( s) BID 2 Capsule(s) PO BID 06/01/2017 07/01/2017 Inactive acyclovir 200 mg cap ilda RxNorm: 892563 Capsule(s) 2 Capsule( s) BID 2 Capsule(s) PO BID 06/01/2017 05/31/2017 Inactive acyclovir 200 mg cap ilda RxNorm: 420081 2 Capsule(s) BID 2 Ca psule(s) PO BID 04/20/2017 06/01/2017 In active duloxetine 60 mg cap ilda,delayed release RxNorm: 707565 1 Capsule(s) PO QD 04/19/2017 08/23/2017 In active propranolol 60 mg ta blet RxNorm: 474779 1 Tablet(s) PO QHS 04/10/2017 06/20/2017 Inactive Lunesta 2 mg tablet RxNorm: 845267 TAKE ONE TABLET BY MOUTH AT BEDTIME 04/09/2017 06/10/2017 In active propranolol 60 mg ta blet RxNorm: 783564 1 Tablet(s) PO QHS 03/06/2017 04/04/2017 Inactive Lunesta 2 mg tablet RxNorm: 991739 1 Tablet(s) PO QHS 01/31/2017 04/09/2017 Inactive acyclovir 200 mg cap ilda RxNorm: 132775 2 Capsule(s) BID 2 Ca psule(s) PO BID 01/31/2017 03/31/2017 In active propranolol 40 mg ta blet RxNorm: 455003 1 Tablet(s) PO BID 12/26/2016 12/26/2016 Inactive amitriptyline 25 mg tablet RxNorm: 767454 1 Tablet(s) PO QHS 12/12/2016 12/25/2016 Inactive amitriptyline 25 mg tablet RxNorm: 383784 1 Tablet(s) PO QHS 12/06/2016 12/11/2016 Inactive amitriptyline 25 mg tablet RxNorm: 355669 1 Tablet(s) PO QHS 12/06/2016 12/05/2016 Inactive amitriptyline 10 mg tablet RxNorm: 525227 1 Tablet(s) PO QHS 11/29/2016 12/05/2016 Inactive duloxetine 60 mg cap ilda,delayed release RxNorm: 323685 1 Capsule(s) PO QD 11/29/2016 04/19/2017 In active Cymbalta 20 mg capsu le,delayed release RxNorm: 706419 2 Capsule(s) PO QD 11/29/2016 11/29/2016 In active Mobic 15 mg tablet RxNorm: 118037 1 Tablet(s) PO QD 11/16/2016 11/28/2016 Inactive acyclovir 200 mg cap ilda RxNorm: 094662 2 Capsule(s) BID 2 Ca psule(s) PO BID 11/15/2016 01/13/2017 In active Cymbalta 30 mg capsu le,delayed release RxNorm: 008050 1 Capsule(s) PO QD 10/30/2016 11/28/2016 In active acyclovir 200 mg cap ilda RxNorm: 685927 2 Capsule(s) BID 2 Ca psule(s) PO BID 08/01/2016 09/29/2016 In active Cymbalta 20 mg capsu le,delayed release RxNorm: 121956 1 Capsule(s) PO QD 08/01/2016 2016 In active Cymbalta 20 mg capsu le,delayed release RxNorm: 735017 1 Capsule(s) PO QD 06/27/2016 07/31/2016 In active acyclovir 200 mg cap ilda RxNorm: 802190 2 Capsule(s) PO BID 04/12/2016 06/10/2016 Inactive Cymbalta 60 mg capsu le,delayed release RxNorm: 007868 1 Capsule(s) PO QD 02/28/2016 06/26/2016 In active amitriptyline 50 mg tablet RxNorm: 996480 1 Tablet(s) PO QHS fo r sleep 02/28/2016 06/26/2016 In active Lyrica 150 mg capsule RxNorm: 350954 TAKE ONE CAPSULE BY MOUTH TWICE DAILY 02/04/2016 02/04/2016 In active Lyrica 150 mg capsule RxNorm: 425684 TAKE ONE CAPSULE BY MOUTH TWICE DAILY 02/04/2016 06/26/2016 In active meloxicam 7.5 mg tablet RxNorm: 228222 1 Tablet(s) PO QD 01/26/2016 06/26/2016 Inactive acyclovir 800 mg tablet RxNorm: 107037 1 Tablet(s) PO 5x day 01/24/2016 12/27/2017 Inactive acyclovir 200 mg cap ilda RxNorm: 357115 2 Capsule(s) PO BID 01/18/2016 03/17/2016 Inactive Lyrica 150 mg capsule RxNorm: 044327 TAKE ONE CAPSULE BY MOUTH TWICE DAILY 01/04/2016 02/04/2016 In active Cymbalta 60 mg capsu le,delayed release RxNorm: 977749 1 Capsule(s) PO QD 12/23/2015 02/20/2016 In active Cymbalta 30 mg capsu le,delayed release RxNorm: 201427 1 Capsule(s) PO QD fo r 1 week then increase to 2 po daily 12/13/2015 12/22/2015 Inactive acyclovir 200 mg cap ilda RxNorm: 994095 2 Capsule(s) PO BID 12/10/2015 01/08/2016 Inactive Cymbalta 30 mg capsu le,delayed release RxNorm: 498367 1 Capsule(s) PO QD fo r 1 week then increase to 2 po daily 12/01/2015 12/12/2015 Inactive Lyrica 150 mg capsule RxNorm: 950563 1 Capsule(s) PO BID 12/01/2015 01/04/2016 Inactive Vitamin D2 50,000 un it capsule RxNorm: 698027 1 Capsule(s) PO QW 12/01/2015 01/23/2016 Inactive MS Contin 30 mg tabl et,extended release RxNorm: 870119 1 Tablet(s) PO BID (m orning and 1 pm) 12/01/2015 12/01/2015 Inactive amitriptyline 50 mg tablet RxNorm: 519375 1 Tablet(s) PO QHS fo r sleep 12/01/2015 02/27/2016 In active melatonin 10 mg tablet RxNorm: 8935763 1 Tablet(s) PO QD No Start Date Active acyclovir 800 mg tablet RxNorm: 515968 1 Tablet(s) PO five times daily No Start Date Active omega 3 500 mg-dha-e pa-B12 500 mcg-FA 1 mg-B6 12.5 mg- phytosterol cap RxNorm: 825839 1 Capsule(s) PO QD No Start Date Active carbamazepine 200 mg tablet RxNorm: 969004 1 Tablet(s) PO BID No Start Date Active Sudogest 30 mg tablet RxNorm: 9793074 1 Tablet(s) PO Q6H as needed No Start Date Active Vitamin D3 5,000 uni t tablet RxNorm: 843719 1 Tablet(s) PO QD No Start Date Active oxycodone-acetaminop hen 5 mg-325 mg tablet RxNorm: 8880935 1 Tablet(s) PO Q4H a s needed No Start Date Active amitriptyline 10 mg tablet RxNorm: 703314 1 Tablet(s) PO QHS No Start Date 03/31/2018 Inactive oxybutynin chloride 5 mg tablet RxNorm: 390904 1 Tablet(s) PO QHS No Start Date 03/31/2018 Inactive Vitamin D2 50,000 un it capsule RxNorm: 3139473 1 Capsule(s) PO QW No Start Date 03/13/2018 Inactive Valtrex 1 gram tablet RxNorm: 657592 1 Tablet(s) PO TID No Start Date 07/01/2017 Inactive meloxicam 7.5 mg tablet RxNorm: 229882 1 Tablet(s) PO QD No Start Date 01/25/2016 Inactive Mobic 15 mg tablet RxNorm: 274451 1 Tablet(s) PO QD No Start Date 11/15/2016 Inactive Lyrica 100 mg capsule RxNorm: 953552 1 Capsule(s) PO BID No Start Date 04/09/2017 Inactive Wellbutrin XL 150 mg 24 hr tablet, extended release RxNorm: 656776 1 Tablet(s) PO QD No Start Date 11/30/2015 Inactive Premarin 0.625 mg ta blet RxNorm: 643233 1 Tablet(s) PO QD No Start Date 01/23/2016 Inactive Vitamin D3 5,000 uni t tablet RxNorm: 146645 1 Tablet(s) PO QD No Start Date 08/26/2017 Inactive melatonin 10 mg tablet RxNorm: 4133238 1 Tablet(s) PO QD No Start Date 11/28/2016 Inactive gabapentin 600 mg ta blet RxNorm: 435142 1 Tablet(s) PO TID No Start Date 04/30/2018 Inactive Lunesta 2 mg tablet RxNorm: 963827 1 Tablet(s) PO QHS No Start Date 01/30/2017 Inactive melatonin 3 mg tablet RxNorm: 920135 2 Tablet(s) PO QHS No Start Date 2016 Inactive propranolol 40 mg ta blet RxNorm: 923354 1 Tablet(s) PO QD No Start Date 01/30/2017 Inactive Elavil 25 mg tablet RxNorm: 650997 1 Tablet(s) PO QD No Start Date 11/28/2016 Inactive carbamazepine ER 200 mg tablet,extended release,12 hr RxNorm: 327325 1 Tablet(s) PO BID No Start Date 03/13/2018 Inactive acyclovir 200 mg cap ilda RxNorm: 563601 2 Capsule(s) PO BID No Start Date 12/09/2015 Inactive scopolamine 1 mg ove r 3 days transdermal patch RxNorm: 806554 TD No Start Date 08/26/2017 Inactive propranolol 40 mg ta blet RxNorm: 674956 1 Tablet(s) PO BID No Start Date 12/25/2016 Inactive gabapentin 300 mg ca psule RxNorm: 243315 1 Capsule(s) PO QD No Start Date 01/30/2017 Inactive Zofran 4 mg tablet RxNorm: 172628 1 Tablet(s) PO QD No Start Date [...] Rocephin IM follow up 04/01/2018 2 w [place] follow up 03/14/2018 Hos pital fwup otalgia 02/04/2018 abdominal pain 01/18/2018 dizziness 08/27/2017 dizziness 05/07/2017 Shruthi saavedra recently started on Carbamazepine 200mg BID follow up 04/10/2017 dizziness 03/06/2017 Shruthi saavedra has feeling of blood rushing in ears follow up 01/31/2017 follow up 11/29/2016 follow up 10/30/2016 follow up 08/01/2016 Cym laxmi restarted at 20mg po daily and needs refill follow up 06/27/2016 follow up 01/24/2016 1mo fwup follow up 12/23/2015 ~generic 12/01/2015 New Patient---establishing visit, Patient has been to [place] [facility] Results Observation Observation Code Item Item Code Result Date COMPREHENSIVE METABOLIC 44632 AST 12 U/L 05/07/2017 COMPREHENSIVE METABOLIC 75153 ALT 11 U/L 05/07/2017 COMPREHENSIVE METABOLIC 44716 BUN 12 mg/dL 05/07/2017 COMPREHENSIVE METABOLIC 13080 ALBUMIN 4.4 g/dL 05/07/2017 COMPREHENSIVE METABOLIC 45184 CHLORIDE 102 mmol/L 05/07/2017 COMPREHENSIVE METABOLIC 48293 Bili Total 0.5 mg/dL 05/07/2017 COMPREHENSIVE METABOLIC 34805 ALK PHOS 74 U/L 05/07/2017 COMPREHENSIVE METABOLIC 45237 SODIUM 134 mmol/L 05/07/2017 COMPREHENSIVE METABOLIC 33183 CREATININE 0.84 mg/dL 05/07/2017 COMPREHENSIVE METABOLIC 11499 CALCIUM 9.4 mg/dL 05/07/2017 COMPREHENSIVE METABOLIC 20336 POTASSIUM 3.9 mmol/L 05/07/2017 COMPREHENSIVE METABOLIC 86808 Total Protein 7.4 g/dL 05/07/2017 COMPREHENSIVE METABOLIC 85328 Glucose 99 mg/dL 05/07/2017 COMPREHENSIVE METABOLIC 68418 Bicarbonate 24 mmol/L 05/07/2017 COMPREHENSIVE METABOLIC 98713 AGAP 8 mmol/L 05/07/2017 GFR CALC 7335494 GFR Non Afr Amr >60 mL/min 05/07/2017 GFR CALC 3802544 GFR Afr Amr >60 mL/min 05/07/2017 THYROID STIMULATING HORMONE 90144 TSH 2.409 uIU/mL 8 ERYTHROCYTE SEDIMENTATION RATE 79122 Sed Rate 26 mm/hr 05/07/2017 COMPLETE BLOOD COUNT 7207298 WBC 5.6 10e9/L 05/07/2017 COMPLETE BLOOD COUNT 4790080 RBC 4.49 10e12/L 8 COMPLETE BLOOD COUNT 8734011 HEMOGLOBIN 13.8 g/dL 05/07/2017 COMPLETE BLOOD COUNT 5814442 HEMATOCRIT 41.3 % 05/07/2017 COMPLETE BLOOD COUNT 3031164 MCV 92.0 fL 05/07/2017 COMPLETE BLOOD COUNT 1842773 MCH 30.7 pg 05/07/2017 COMPLETE BLOOD COUNT 5563260 MCHC 33.4 g/dL 05/07/2017 COMPLETE BLOOD COUNT 5875081 PLATELET COUNT 299 10e9/L 05/07/2017 COMPLETE BLOOD COUNT 0691283 Mean Plt Volume 8.3 fL 05/07/2017 COMPLETE BLOOD COUNT 6406145 Neut Auto 61.1 % 05/07/2017 COMPLETE BLOOD COUNT 2859657 Lymph Auto 27.5 % 05/07/2017 COMPLETE BLOOD COUNT 5016511 [place] Auto 7.6 % 05/07/2017 COMPLETE BLOOD COUNT 7019244 RDW 13.0 % 05/07/2017 COMPLETE BLOOD COUNT 8269332 Eos Auto 3.6 % 05/07/2017 COMPLETE BLOOD COUNT 6568793 Baso Auto 0.2 % 05/07/2017 COMPLETE BLOOD COUNT 5212900 Neutrophil Abs 3.42 10e9/L 05/07/2017 COMPLETE BLOOD COUNT 1706657 Lymphocyte Abs 1.54 10e9/L 05/07/2017 COMPLETE BLOOD COUNT 8361897 Monocyte Abs 0.43 10e9/L 05/07/2017 COMPLETE BLOOD COUNT 2961750 Eosinophil Abs 0.20 10e9/L 05/07/2017 COMPLETE BLOOD COUNT 9354566 RDW-SD 42.5 fL 05/07/2017 COMPLETE BLOOD COUNT 9052071 Basophil Abs 0.01 10e9/L 05/07/2017 VITAMIN D TOTAL (25 HYDROXY) 40886 Vitamin D 25 OH 22 ng/mL 6 [...] CPT-4: J0696 04/02/2018 THER/PROPH/DIAG INJ SC/IM CPT-4: 38400 04/02/2018 CEFTRIAXONE SODIUM I NJECTION CPT-4: J0696 04/01/2018 THER/PROPH/DIAG INJ SC/IM CPT-4: 35297 04/01/2018 THER/PROPH/DIAG INJ SC/IM CPT-4: 85160 02/04/2018 TRIAMCINOLONE ACET I NJ NOS CPT-4: J3301 02/04/2018 DEXAMETHASONE SODIUM PHOS CPT-4: J1100 02/04/2018 URINALYSIS NONAUTO W /O SCOPE CPT-4: 76295 01/18/2018 URINE CULTURE/ COLON Y COUNT CPT-4: 69271 01/18/2018 THER/PROPH/DIAG INJ SC/IM CPT-4: 23140 08/27/2017 TRIAMCINOLONE ACET I NJ NOS CPT-4: J3301 08/27/2017 DEXAMETHASONE SODIUM PHOS CPT-4: J1100 08/27/2017 PRESCRIP TRANSMIT A ERX SY CPT-4: G8553 08/27/2017 THER/PROPH/DIAG INJ SC/IM CPT-4: 50110 05/07/2017 KETOROLAC TROMETHAMI NE INJ CPT-4: J1885 05/07/2017 THER/PROPH/DIAG INJ SC/IM CPT-4: 03795 05/07/2017 PROMETHAZINE HCL INJ ECTION CPT-4: J2550 05/07/2017 PRESCRIP TRANSMIT A ERX SY CPT-4: G8553 04/10/2017 PRESCRIP TRANSMIT A ERX SY CPT-4: G8553 03/06/2017 PRESCRIP TRANSMIT A ERX SY CPT-4: G8553 01/31/2017 PRESCRIP TRANSMIT A ERX SY CPT-4: G8553 11/29/2016 PRESCRIP TRANSMIT A ERX SY CPT-4: G8553 10/30/2016 PRESCRIP TRANSMIT A ERX SY CPT-4: G8553 06/27/2016 ROUTINE VENIPUNCTURE CPT-4: 94982 01/24/2016 VITAMIN D TOTAL (25 HYDROXY) CPT-4: 60221 01/24/2016 PRESCRIP TRANSMIT A ERX SY CPT-4: [...] 1: 126/86 Code: 8480-6 BMI: 36.0 Code: 38360-3 Heart Rate 1: 92 bpm Height: 5'4" Respiratory Rate: 18 bpm SpO2: 97% Temperature: 36.8 (C ) / 98.3 (F) Weight: 210 lbs 08/27/2017 Blood Pressure 1: 132/92 Code: 8480-6 Heart Rate 1: 92 bpm Respiratory Rate: 18 bpm SpO2: 98% Temperature: 36.9 (C ) / 98.4 (F) Weight: 205 lbs 05/07/2017 Blood Pressure 1: 106/80 Code: 8480-6 BMI: 35.7 Code: 32239-9 Heart Rate 1: 84 bpm Height: 5'4" Respiratory Rate: 20 bpm SpO2: 96% Temperature: 36.7 (C ) / 98.1 (F) Weight: 208 lbs 04/10/2017 Blood Pressure 1: 124/82 Code: 8480-6 Heart Rate 1: 76 bpm Height: 5'4" Respiratory Rate: 20 bpm Temperature: 36.8 (C ) / 98.2 (F) 03/06/2017 Blood Pressure 1: 124/90 Code: 8480-6 BMI: 36.4 Code: 48235-1 Heart Rate 1: 88 bpm Height: 5'4" Respiratory Rate: 20 bpm SpO2: 98% Temperature: 36.9 (C ) / 98.4 (F) Weight: 212 lbs 01/31/2017 Blood Pressure 1: 124/78 Code: 8480-6 BMI: 35.4 Code: 64374-3 Heart Rate 1: 80 bpm Height: 5'4" Respiratory Rate: 20 bpm Temperature: 36.6 (C ) / 97.8 (F) Weight: 206 lbs 11/29/2016 Blood Pressure 1: 134/84 Code: 8480-6 BMI: 35.4 Code: 82329-2 Heart Rate 1: 88 bpm Height: 5'4" Respiratory Rate: 20 bpm Temperature: 37.0 (C ) / 98.6 (F) Weight: 206 lbs 10/30/2016 Blood Pressure 1: 134/90 Code: 8480-6 BMI: 35.0 Code: 08860-7 Heart Rate 1: 96 bpm Height: 5'4" Respiratory Rate: 20 bpm Temperature: 36.8 (C ) / 98.3 (F) Weight: 204 lbs 08/01/2016 Blood Pressure 1: 120/82 Code: 8480-6 Heart Rate 1: 84 bpm Height: 5'4" Respiratory Rate: 20 bpm SpO2: 98% Temperature: 36.0 (C ) / 96.8 (F) 06/27/2016 Blood Pressure 1: 134/80 Code: 8480-6 BMI: 35.0 Code: 02094-6 Heart Rate 1: 76 bpm Height: 5'4" Respiratory Rate: 20 bpm Temperature: 36.8 (C ) / 98.3 (F) Weight: 204 lbs 01/24/2016 Blood Pressure 1: 114/78 Code: 8480-6 BMI: 34.7 Code: 12396-6 Heart Rate 1: 100 bpm Height: 5'4" Respiratory Rate: 20 bpm Temperature: 36.8 (C ) / 98.3 (F) Weight: 202 lbs 12/23/2015 Blood Pressure 1: 118/74 Code: 8480-6 BMI: 33.5 Code: 40273-2 Heart Rate 1: 76 bpm Height: 5'4" Respiratory Rate: 20 bpm Temperature: 37.1 (C ) / 98.7 (F) Weight: 195 lbs 12/01/2015 Blood Pressure 1: 106/74 Code: 8480-6 BMI: 31.8 Code: 54121-0 Heart Rate 1: 80 bpm Height: 5'4" [...] of emotion Quality worsening 05/07/2017 [facility] and insurance not covering at this [...] during adulthood 08/01/2016 None skin lesion Quality evaluation analyst crow 06/27/2016 Recurrent herpetic lesion skin lesion [...] seem groggy the next day paresthesia Quality evaluation analyst crow 12/01/2015 None paresthesia Quality burn ing [...] Encounters Encounter Performer Loca tion Codes Date ([id number]) NURSE/OUTPAT IENT VISIT EST Diagnosis: Acute sinusitis, unspecified[ICD10: J01.90] Rosaline ERVIN DO [facility] CPT-4: 41913 04/02/2018 ([id number]) OFFICE/OUTPA TIENT VISIT EST Diagnosis: Pain in right wrist[ICD10: M25.531] Diagnosis: Disorder of the skin and subcutaneous tissue, unspecified[ICD10: L98.9] Diagnosis: Other acute sinusitis[ICD10: J01.80] Diagnosis: Other insomnia[ICD10: G47.09] Rachael FLOR DO [facility] CPT-4: 70517 04/01/2018 ([id number]) OFFICE/OUTPA TIENT VISIT EST Diagnosis: Postherpetic trigeminal neuralgia[ICD10: B02.22] Diagnosis: Acute sinusitis, unspecified[ICD10: J01.90] Rosaline ERVIN [facility] CPT-4: 78934 03/14/2018 ([id number]) OFFICE/OUTPA TIENT VISIT EST Diagnosis: Acute sinusitis, unspecified[ICD10: J01.90] Diagnosis: Encounter for screening for cardiovascular disorders[ICD10: Z13.6] Diagnosis: Encounter for screening for lipoid disorders[ICD10: Z13.220] Rachael FLOR DO [facility] CPT-4: 00795 02/04/2018 ([id number]) OFFICE/OUTPA TIENT VISIT EST Diagnosis: Left lower quadrant pain[ICD10: R10.32] Diagnosis: Urgency of urination[ICD10: R39.15] Rachael LEUNG [facility] CPT-4: 53255 01/18/2018 ([id number]) OFFICE/OUTPA TIENT VISIT EST Diagnosis: Benign paroxysmal vertigo, right ear[ICD10: H81.11] Rachael LEUNG [facility] CPT-4: 15695 08/27/2017 ([id number]) OFFICE/OUTPA TIENT VISIT EST Diagnosis: Generalized abdominal pain[ICD10: R10.84] Diagnosis: Headache[ICD10: R51] Diagnosis: Dizziness and giddiness[ICD10: R42] Diagnosis: Unspecified adverse effect of drug or medicament, initial encounter[ICD10: T88.7XXA] Diagnosis: Nausea[ICD10: R11.0] Rosaline FLOR DO [facility] CPT-4: 10201 05/07/2017 ([id number]) OFFICE/OUTPA TIENT VISIT EST Diagnosis: Tinnitus, right ear[ICD10: H93.11] Diagnosis: Stricture of artery[ICD10: I77.1] Diagnosis: Headache[ICD10: R51] Diagnosis: Dizziness and giddiness[ICD10: R42] Rosaline ERVIN [facility] CPT-4: 31188 04/10/2017 ([id number]) OFFICE/OUTPA TIENT VISIT EST Diagnosis: Dizziness and giddiness[ICD10: R42] Diagnosis: Headache[ICD10: R51] Diagnosis: Tinnitus, right ear[ICD10: H93.11] Rosaline ERVIN [facility] CPT-4: 04657 03/06/2017 ([id number]) OFFICE/OUTPA TIENT VISIT EST Diagnosis: Postherpetic trigeminal neuralgia[ICD10: B02.22] Diagnosis: Headache[ICD10: R51] Diagnosis: Dizziness and giddiness[ICD10: R42] Rosaline ERVIN [facility] CPT-4: 51922 01/31/2017 ([id number]) OFFICE/OUTPA TIENT VISIT EST Diagnosis: Headache[ICD10: R51] Diagnosis: Major depressive disorder, recurrent, unspecified[ICD10: F33.9] Diagnosis: Personal history of malignant melanoma of skin[ICD10: Z85.820] [facility] 09270 11/29/2016 ([id number]) OFFICE/OUTPA TIENT VISIT EST Diagnosis: Major depressive disorder, recurrent, unspecified[ICD10: F33.9] Diagnosis: Postherpetic trigeminal neuralgia[ICD10: B02.22] Diagnosis: URI, ACUTE[ICD10: J06.9] Rosaline FLOR [facility] CPT-4: 47268 10/30/2016 ([id number]) OFFICE/OUTPA TIENT VISIT EST Diagnosis: Unspecified perichondritis of right external ear[ICD10: H61.001] Diagnosis: Major depressive disorder, recurrent, unspecified[ICD10: F33.9] Rosaline FLOR [facility] CPT-4: 36998 08/01/2016 ([id number]) OFFICE/OUTPA TIENT VISIT EST Diagnosis: Unspecified perichondritis of right external ear[ICD10: H61.001] Diagnosis: 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] Diagnosis: Major depressive disorder, recurrent, unspecified[ICD10: F33.9] Diagnosis: Vitamin D deficiency, unspecified[ICD10: E55.9] Rosaline Basia CAMPOQUELINE ChaimWilder MEIR ERVIN [employer] CPT-4: 23723 06/27/2016 ([id number]) OFFICE/OUTPA TIENT VISIT EST Diagnosis: Fibromyalgia[ICD10: M79.7] Diagnosis: Vitamin D deficiency, unspecified[ICD10: E55.9] Diagnosis: 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] Rosaline ZHOU ChaimWilder MEIR ERVIN [employer] CPT-4: 03023 01/24/2016 OFFICE/OUTPATIENT SIT EST Diagnosis: Opioid dependence, uncomplicated[ICD10: F11.20] Diagnosis: Fibromyalgia[ICD10: M79.7] Diagnosis: Major depressive disorder, recurrent, unspecified[ICD10: F33.9] Rosaline ZHOU ChaimWilder BASIA [employer] CPT-4: 07975 12/23/2015 OFFICE/OUTPATIENT SIT NEW Diagnosis: Fibromyalgia[ICD10: M79.7] Diagnosis: Primary insomnia[ICD10: F51.01] Diagnosis: Opioid dependence, uncomplicated[ICD10: F11.20] Diagnosis: Major depressive disorder, recurrent, unspecified[ICD10: F33.9] Diagnosis: Viral intestinal infection, unspecified[ICD10: A08.4] Rosaline ZHOU ChaimWilder MEIR [email or web address] CPT-4: 75938 12/01/2015 Plan of Care Planned Activity Notes C odes Status Date Appointment: [facility] [phone] [id number] [facility] 04/02/2018 Visit Diagnosis [...] ICD-10 : G47.09 04/01/2018 Appointment: Rachael Anderson [address] [place], [place] [id number] FOLLOW UP 04/01/2018 Patient Education: mupirocin- Opt[employer] Coupon [id number] [email or web address]://www.sample[employer]/samplemd/resources/getResource/[email or web address] Completed 04/01/2018 Patient Education: amitriptyline- Optimize[employer] Coupon [id number] https://www.sampleApplied Visual Sciences.com/samplemd/resources/getResource/61/[email or web address]-[email or web address]-041d-38 Completed 04/01/2018 Patient Education: oxybutynin chloride- [employer] Coupon [id number] https://www.sampleApplied [employer]/samplemd/resources/getResource/61/[email or web address] [email or web address].pdf Completed 04/01/2018 Appointment: [facility] [phone] [facility] [facility] 03/28/2018 Visit Diagnosis Plan: Acute sinusitis, [...] B02.22 03/14/2018 Appointment: Rosaline Flor WPtel: [phone] [facility] [facility] Follow Up 03/14/2018 Patient Education: doxycycline hyclate- [employer] Coupon [id number] https://www.[employer]/sample[employer]/resources/getResource/61/[id number] [email or web address].pdf Completed 03/14/2018 Visit Diagnosis Plan: Acute sinusitis, [...] disorders Discussion: lipids to be added onto [employer] work from last week. ICD-9 : V77.91 ICD-10 : Z13.220 02/04/2018 Appointment: Rachael Anderson [address] [place], [place] [id number] ACUTE ILLNESS 02/04/2018 Visit Diagnosis Plan: Urgency [...] ICD-10 : R10.32 01/18/2018 Appointment: Rachael Anderson [address] [place], [place] [id number] ACUTE ILLNESS 01/18/2018 Care Plan: US EXAM PELVIC COMPLETE Pending 01/18/2018 Visit Diagnosis Plan: Benign paroxysmal vertigo, right ear Discussion: 40 mg kenalog/4 mg dexa given in office. meclizine prescribed to be taken prn dizziness. call or rtc if no improvement or worsening symptoms. ICD-9 : 386.11 ICD-10 : H81.11 08/27/2017 Appointment: Rachael Anderson [address] [place] [address] ACUTE ILLNESS 08/27/2017 Patient Education: Patient Medication Summary Completed 08/27/2017 Visit Diagnosis Plan: Generalized abdominal pain Discussion: Thinks is IBS acting up ICD-9 : 789.00 ICD-10 : R10.84 05/07/2017 Visit Diagnosis Plan: Headache Discu ssion: Toradol 60mg IM x1 now with phenergan 25mg IM x1 ICD-9 : 784.0 ICD-10 : R51 05/07/2017 Visit Diagnosis Plan: Nausea Discuss ion: Phenergan Recheck tomorrow or to ER tonite if worsening ICD-9 : 787.02 ICD-10 : R11.0 05/07/2017 Visit Diagnosis Plan: Unspecified advers e effect of drug or medicament, initial encounter Discussion: Hold tegretol Symptoms may b e side effect of tegretol vs withdrawal from cymbalta vs both Check CMP, CBC, TSH, ESR now ICD-9 : 995.20 ICD-10 : T88.7XXA 05/07/2017 Visit Diagnosis Plan: Dizziness and giddiness Discussion: Scopolamine patch ICD-9 : 780.4 ICD-10 : R42 05/07/2017 Appointment: Rosaline Flor WPtel: [phone] [facility] ACUTE ILLNESS 05/07/2017 Patient Education: Patient Medication Summary Completed 05/07/2017 Patient Education: Patient Medication Summary Completed 05/07/2017 Care Plan: COMPREHEN METABOLIC PANEL LOINC : 75888-7 Pending 05/07/2017 Care Plan: ASSAY THYROID STIM HORMONE Pending 05/07/2017 Care Plan: RBC SED RATE AUTOMATED Pending 05/07/2017 Visit Diagnosis Plan: Tinnitus, right ear Discussion: 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 ICD-9 : 388.30 ICD-10 : H93.11 04/10/2017 Visit Diagnosis Plan: Headache Discu ssion: Referral to Neurology ICD-9 : 784.0 ICD-10 : R51 04/10/2017 [facility]ment[facility] [phone] [facility] [facility] 04/10/2017 Patient Education: Patient Medication Summary Completed 04/10/2017 Patient Education: Patient Medication Summary Completed 04/02/2017 Care Plan: US EXAM OF HEAD AND NECK right subclavian/vertebral artery Pending 04/02/2017 Patient Education: Patient Medication Summary Completed 03/26/2017 Care Plan: MR ANGIOGRAPHY NECK W/O DYE LOINC : 58688-4 Pending 03/26/2017 Care Plan: MR ANGIOGRAPHY HEAD W/O DYE LOINC : 06359-9 Pending 03/26/2017 Visit Diagnosis Plan: Headache Discu [...] H93.11 03/06/2017 App[facility]ment: [facility] [phone] [facility] [place] Confirmed-03/05/2017-KB FOLLOW UP 03/06/2017 [...] 784.0 ICD-10 : R51 01/31/2017 Appointment: Rosaline Flortel: [address] [place] [address] ACUTE ILLNESS 01/31/2017 Patient Education: Patient Medication [...] : F33.9 11/29/2016 Appointment: Rosaline Flor WPtel: [address] [place] [address] FOLLOW UP 11/29/2016 Patient Education: Patient Medication [...] 053.12 ICD-10 : B02.22 10/30/2016 Appointment: Rosaline Flortel: [address] [place] [address] [place] FOLLOW UP 10/30/2016 Patient Education: Patient Medication Summary Completed 10/30/2016 Patient Education: [facility] - Saving AutoInj - Cymbalta - 18-64 - Dynamic Portal ID Completed 10/30/2016 Referral: Isaias Hobson WPtel: [phone] [address] [place] Referral Initiated 08/05/2016 Visit Diagnosis Plan: [...] : H61.001 08/01/2016 Appointment: Rosaline Flor WPtel: [address] [place] [address] 07/31busy `sl 08/01 confirmed~sl FOLLOW UP 08/01/2016 Patient Education: Patient Medication Summary Completed 08/01/2016 Care Plan: Referral Order SNOMED-CT : [id number] Pending 08/01/2016 Visit Diagnosis Plan: Major depressive [...] : B00.1 06/27/2016 Appointment: Rosaline Flor WPtel: [address] [place] [address] 06/26 confirmed-sp ER Follow UP 06/27/2016 Patient Education: Patient Medication Summary Completed 06/27/2016 Care Plan: DXA BONE DENSITY AXIAL LOINC : 19705-2 Pending 06/27/2016 Appointment: Rosaline Flor WPtel: [phone] [place], [place] [phone] 06/13 lm`sl ACUTE ILLNESS 06/14/2016 App[facility]ment[facility] [phone] [facility] 06/12 lm~sl 06/12 rescheudle~sl RESCHEDULED 06/13/2016 Appointment: Rosaline Flor WPtel: [phone] [facility] 04/13 confirmed `sl 04/17/2016 Patient Education: Patient Medication Summary Completed 03/02/2016 Care Plan: URINALYSIS AUTO W/O SCOPE LOINC : 84686-6 Pending 03/02/2016 Visit Plan: Check Vitamin D [...] on symptoms 01/24/2016 Appointment: Rosaline Flor WPtel: [address] [place], [place] [id number] 01/19 lm `sl 01/20 busy busy~sl 01/23 [...] do aquatherapy 12/23/2015 Appointment: Rosaline Flor WPtel: [address] [place], [place] [phone] 12/21 lm~sl 12/22 confirmed ~sl FOLLOW UP [...] or persists Reviewed patient's medical records from [place] Patient follows routinely with Dr. Sprague for history of melanoma 12/01/2015 Appointment: [facility]el[facility] [phone] [facility] 11/29 confirmed~sl NEW PATIENT 12/01/2015 Patient Education: Patient Medication Summary Completed 12/01/2015 Patient Education: [facility] - Saving AutoInj - Cymbalta - 18-64 - Dynamic Portal ID Completed 12/01/2015 Patient Education: Lyrica - 18+ - No [place] Completed 12/01/2015 Patient Education: [facility] - Saving AutoInj - 18-64 - Dynamic Portal ID Completed 12/01/2015 Referral: Isaias Hobson WPtel: [phone] Referral Appointment Requested Instructions Comment . Continue [...] or persists Reviewed patient's medical records from [place] Patient follows routinely [...]
--- OUTSIDE RECORDS SUMMARY | 2019-02-19 22:05 | XMS REPORT | Continuity of Care Document ---
Author Organization Unknown Address Unknown Phone Unavailable Allergies Active Description Code Type Severity Reaction Onset Reported/Identified Relationship to Patient Clinical Status Yes VANCOMYCIN UNKNOWN UNKNOWN Yes NKANo Known Allergies NKA Miscellaneous Allergy Unknown N/A 03/16/2008 Yes promethazine [id number] Drug Allergy Unknown N/A 04/13/2016 Yes vancomycin [id number] Drug Allerg y Unknown RASH 09/13/2016 Medications Medication Packaging Start Date St op Date Route Dosage Sig Heparin, FLUSH IV syringe 500 units UNITS 10/14/2018 10/14/2018 ONCE&1709 KETOROLAC VIAL INJ 30 MG/CC (TORADOL VIAL) MG 10/14/2018 10/14/2018 ONCE&1709 NORMAL SALINE 1000CC IV BAG INJ 0.9 % (NS 1000CC IV BAG) ml 10/14/2018 2018 CONTINUOUSEVERY 0 Hour LEVOFLOXACIN PREMIX IV BAG I NJ 750 MG (LEVAQUIN PREMIX IV BAG) MG 10/14/2018 10/14/2018 ONCE&1709 FENTANYL INJ 100 MCG/2CC VIAL MCG 10/14/2018 10/14/2018 ONCE&1808 Problems Date Dx Coded Attending Type Code [...] Ot V58.62 04/29/2013 YOMAIRA MCKENZIE DO Ot 530. 19 OTHER ESOPHAGITIS 04/29/2013 YOMAIRA MCKENZIE DO Ot 553. 3 DIAPHRAGMATIC HERNIA 07/08/2013 TYLOR MENDOZA MD Ot 723. 1 CERVICALGIA 07/08/2013 TYLOR MENDOZA MD Ot V57. 1 PHYSICAL THERAPY NEC 09/29/2013 MARYSE VIVAS Ot 276.69 OTHER FLUID OVERLOAD 09/29/2013 MARYSE VIVAS Ot 723.1 CERVICALGIA 09/29/2013 MARYSE VIVAS Ot V10.82 HX- MALIG SKIN MELANOMA 09/29/2013 MARYSE VIVAS Ot V58.69 OTH MED,LT,CURRENT USE 09/29/2013 MARYSE VIVAS Ot V67.1 RADIOTHERAPY FOLLOW-UP 01/02/2014 HARINDER LAM, MAISHA Malin Ot 473.0 01/02/2014 HARINDER LAM, MAISHA Malin Ot 473.2 01/02/2014 HARINDER LAM, MAISHA Malin Ot 756.0 01/26/2014 HARINDER LAM, MAISHA Malin Ot 473.0 01/26/2014 MAISHA PIZANO MD Ot 473.2 01/26/2014 HARINDER LAM, MAISHA Malin Ot 756.0 02/02/2014 HIRAL PRESTON Ot 784.1 THROAT PAIN 02/02/2014 HIRAL PRESTON Ot 995.27 OTHER DRUG ALLERGY 02/02/2014 HIRAL PRESTON Ot E947.8 ADV EFF MEDICINAL NEC 02/03/2014 Ot 276.69 02/03/2014 Ot 723.1 02/03/2014 Ot V10.82 02/03/2014 Ot V58.69 02/03/2014 Ot V67.1 02/03/2014 ARLENE LAM, SADAF Mcdaniel Ot 473 .9 02/03/2014 SADAF JACOBS MD Ot 478 .0 02/03/2014 SADAF JACOBS MD Ot V72.81 02/03/2014 SADAF JACOBS MD Ot V72.83 02/03/2014 SADAF JACOBS MD Ot V74 .8 02/05/2014 MARYSE VIVAS N Ot 054.9 HERPES SIMPLEX NOS 02/05/2014 MARYSE VIVAS N Ot 457.1 OTHER LYMPHEDEMA 02/05/2014 MARYSE VIVAS N Ot 784.0 HEADACHE 02/05/2014 SANGEETHAMARYSE SANTIAGO N Ot E879.2 ABN REACT-RADIOTHERAPY 02/05/2014 MARYSE VIVAS N Ot V10.82 HX- MALIG SKIN MELANOMA 02/05/2014 MARYSE VIVAS N Ot 054.9 02/05/2014 SANGEETHAMARYSE SANTIAGO N Ot 457.1 02/05/2014 SANGEETHAMARYSE SANTIAGO N Ot 784.0 02/05/2014 SANGEETHAMARYSE SANTIAGO N Ot E879.2 02/05/2014 SANGEETHAMARYSE SANTIAGO N Ot V10.82 02/07/2014 ARLENE LAM, SADAF Mcdaniel Ot 473 .0 CHR MAXILLARY SINUSITIS 02/07/2014 SADAF JACOBS MD Ot 473 .2 CHR ETHMOIDAL SINUSITIS 02/07/2014 SADAF JACOBS MD Ot 478 .0 HYPERTRPH NASAL TURBINAT 02/17/2014 Ot 723.1 02/17/2014 Ot V10.82 02/17/2014 Ot V58.69 02/17/2014 Ot V67.1 02/17/2014 SANGEETHAMARYSE SANTIAGO N Ot 054.9 02/17/2014 SANGEETHAMARYSE SANTIAGO N Ot 300.00 02/17/2014 SANGEETHAMARYSE SANTIAGO N Ot 311 02/17/2014 SANGEETHAMARYSE SANTIAGO N Ot 530.81 02/17/2014 ASNGEETHAMARYSE SANTIAGO N Ot 553.3 02/17/2014 SANGEETHAMARYSE SANTIAGO N Ot 564.1 02/17/2014 SANGEETHAMARYSE SANTIAGO N Ot 729.1 02/17/2014 SANGEETHA, BOBAN N [...] V58.74 02/24/2014 ARLENE LAM, SADAF P Ot 473 .9 02/24/2014 ARLENE LAM, SADAF P Ot 478 .0 02/24/2014 ARLENE LAM, SADAF P Ot V72.81 02/24/2014 ARLENE LAM, SADAF P Ot V72.83 02/24/2014 ARLENE LAM, SADAF P Ot V74 .8 02/26/2014 Ot 276.69 02/26/2014 Ot 723.1 02/26/2014 [...] SANGEETHA, BOBAN N Ot 054.9 02/27/2014 SANGEETHA, STEFFANIEAN N Ot 300.00 02/27/2014 SANGEETHA, BOBJE N Ot 311 02/27/2014 SANGEETHA, BOBJE N Ot 530.81 02/27/2014 SANGEETHA, MARYSE N Ot 553.3 02/27/2014 SANGEETHAMARYSE N Ot 564.1 02/27/2014 SANGEETHAMARYSE N Ot 729.1 02/27/2014 SANGEETHAMARYSE N Ot V10.82 02/27/2014 SANGEETHAMARYSE N Ot V58.74 02/27/2014 SANGEETHAMARYSE N Ot 054.9 HERPES SIMPLEX NOS 02/27/2014 SANGEETHAMARYSE N Ot 300.00 ANXIETY STATE NOS 02/27/2014 SANGEETHAMARYSE N Ot 311 DEPRESSIVE DISORDER NEC 02/27/2014 SANGEETHAMARYSE SANTIAGO N Ot 457.1 OTHER LYMPHEDEMA 02/27/2014 MARYSE VIVAS N Ot 530.81 ESOPHAGEAL REFLUX 02/27/2014 MARYSE VIVAS N Ot 553.3 DIAPHRAGMATIC HERNIA 02/27/2014 SANGEETHAMARYSE SANTIAGO N Ot 564.1 IRRITABLE BOWEL SYNDROME 02/27/2014 SANGEETHAMARYSE N Ot 595.9 CYSTITIS NOS 02/27/2014 SANGEETHAMARYSE SANTIAGO N Ot 597.80 URETHRITIS NOS 02/27/2014 MARYSE VIVAS N Ot 616.10 VAGINITIS NOS 02/27/2014 MARYSE VIVAS N Ot 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, MIDLINE 02/27/2014 MARYSE VIVAS N Ot 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 DISC DEGEN 02/27/2014 MARYSE VIVAS N Ot 729.1 MYALGIA AND MYOSITIS NOS 02/27/2014 SANGEETHAMARYSE N Ot V10.82 HX- MALIG SKIN MELANOMA 02/27/2014 SANGEETHAMARYSE SANTIAGO N Ot V58.74 AFTERCARE POST SURGERY REPIRATORY SYSTEM 03/18/2014 SANGEETHAMARYSE SANTIAGO N Ot 457.1 03/18/2014 SANGEETHA BOBAN N Ot 723.1 03/18/2014 SANGEETHAMARYSE N Ot V10.82 03/18/2014 SANGEETHAMARYSE N Ot V58.69 03/18/2014 SANGEETHA, BOBAN N Ot V67.1 03/18/2014 MARYSE VIVAS Ot 457.1 03/18/2014 MARYSE VIVAS Ot 723.1 03/18/2014 MARYSE VIVAS N Ot V10.82 03/18/2014 MARYSE VIVAS Ot V58.69 03/18/2014 MARYSE VIVAS Ot V67.1 04/01/2014 MARYSE VIVAS Ot 457.1 04/01/2014 MARYSE VIVAS Ot 723.1 04/01/2014 MARYSE VIVAS Ot V10.82 04/01/2014 MARYSE VIVAS Ot V58.69 [...] 04/07/2014 Ot V67.1 04/07/2014 ANA LAURA EDWARD SOFTWARE APPLICATIONS DESIGNER Ot 054.9 04/07/2014 ANA LAURA EDWARD SOFTWARE APPLICATIONS DESIGNER Ot 529.6 04/07/2014 ANA LAURA EDWARD SOFTWARE APPLICATIONS DESIGNER Ot 723.4 04/07/2014 ANA LAURA EDWARD SOFTWARE APPLICATIONS DESIGNER Ot V10.82 04/07/2014 EDWARDANA LAURA Rucker SOFTWARE APPLICATIONS DESIGNER Ot V58.69 04/07/2014 EDWARDANA LAURA Rucker SOFTWARE APPLICATIONS DESIGNER Ot V67.1 04/07/2014 ANA LAURA EDWARD SOFTWARE APPLICATIONS DESIGNER Ot 172.9 04/07/2014 TYLOR MENDOZA MD Ot 722. 51 04/07/2014 TYLOR MENDOZA MD Ot 722. 52 04/07/2014 TYLOR MENDOZA MD Ot 723. 4 04/07/2014 TYOLR MENDOZA MD Ot 724. 6 04/07/2014 TYLOR MENDOZA MD Ot 729. 1 04/07/2014 TYLOR MENDOZA MD Ot V58. 69 04/07/2014 TYLOR MENDOZA MD Ot 722. 51 04/07/2014 TYLOR MENDOZA MD Ot 722. 52 04/07/2014 TYLOR MENDOZA MD Ot 723. 1 04/07/2014 TYLOR MENDOZA MD Ot 723. 4 04/07/2014 TYLOR MENDOZA MD Ot 786. 50 04/07/2014 TYLOR MENDOZA MD Ot V58. 69 04/07/2014 YOMAIRA MCKENZIE DO Ot V72. 84 04/07/2014 SANGEETHAMARYSE N Ot 276.69 04/07/2014 SANGEETHAMARYSE N Ot 723.1 04/07/2014 SANGEETHAMARYSE SANTIAGO N Ot V10.82 04/07/2014 SANGEETHAMARYSE SANTIAGO N Ot V58.69 04/07/2014 SANGEETHAMARYSE SANTIAGO N Ot V67.1 04/07/2014 SANGEETHAMARYSE SANTIAGO N Ot 172.9 04/07/2014 KELLY LAM, TYLOR Melgar Ot 722. 4 04/07/2014 Ot 276.69 04/07/2014 Ot 723.1 04/07/2014 Ot V10.82 04/07/2014 Ot V58.69 04/07/2014 Ot V67.1 04/07/2014 HARINDER LAM, MAISHA L Ot 473.0 04/07/2014 HARINDER LAM, MAISHA L Ot 473.2 04/07/2014 HARINDER LAM, MAISHA L Ot 756.0 04/07/2014 ARLENE LAM, SADAF P Ot 473 .9 04/07/2014 ARLENE LAM, SADAF P Ot 478 .0 04/07/2014 ARLENE LAM, SADAF P Ot V72.81 04/07/2014 ARLENE LAM, SADAF P Ot V72.83 04/07/2014 ARLENE LAM, SADAF P Ot V74 .8 04/07/2014 SANGEETHAMARYSE SANTIAGO N Ot 457.1 04/07/2014 SANGEETHAMARYSE SANTIAGO N Ot 723.1 04/07/2014 SANGEETHAMARYSE SANTIAGO N Ot V10.82 04/07/2014 SANGEETHAMARYSE SANTIAGO N Ot V58.69 04/07/2014 SANGEETHAMARYSE SANTIAGO N Ot V67.1 04/14/2014 Ot 276.69 04/14/2014 Ot 723.1 04/14/2014 Ot V10.82 04/14/2014 Ot V58.69 04/14/2014 Ot V67.1 05/20/2014 SANGEETHASTEFFANIE SANTIAGOAN N Ot 172.9 05/20/2014 SANGEETHASTEFFANIEAN N Ot 780.96 05/22/2014 Ot 787.02 05/22/2014 Ot 789.00 05/22/2014 Ot 793.11 05/29/2014 SANGEETHASTEFFANIEAN N Ot 172.9 05/29/2014 SANGEETHASTEFFANIEAN N Ot 780.96 07/18/2014 Ot 276.69 07/18/2014 Ot 723.1 07/18/2014 Ot V10.82 07/18/2014 Ot V58.69 07/18/2014 Ot V67.1 07/18/2014 SANGEETHAMARYSE SANTIAGO N Ot 789.00 08/11/2014 SANGEETHA, MARYSE N Ot V10.82 08/11/2014 SANGEETHA, MARYSE N Ot V58.69 08/11/2014 SANGEETHA, MARYSE N Ot V67.1 09/17/2014 SANGEETHA, MARYSE N Ot 793.11 11/05/2014 SANGEETHA, STEFFANIEAN N Ot 172.9 11/05/2014 SANGEETHA, STEFFANIEAN N Ot 723.4 11/05/2014 SANGEETHA, MARYSE N Ot V12.69 11/12/2014 SANGEETHA, MARYSE N Ot 356.9 11/12/2014 SANGEETHA, MARYSE N Ot 719.49 11/12/2014 SANGEETHA, MARYSE N Ot 723.1 11/12/2014 SANGEETHA, MARYSE N Ot V10.82 11/12/2014 SANGEETHA, MARYSE N Ot V58.69 11/12/2014 SANGEETHA, MARYSE N Ot V67.1 11/18/2014 SANGEETHA, MARYSE N Ot 172.9 MALIG MELANOMA SKIN NOS 11/18/2014 SANGEETHA, MARYSE N Ot 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 NEURITIS NOS 11/18/2014 SANGEETHA, MARYSE N Ot V12.69 PERSONAL HISTORY, OTHER DISEASES OF RESP 04/08/2015 SANGEETHA, BOBAN N Ot F17.210 04/08/2015 SANGEETHA, BOBAN N Ot Z08 04/08/2015 SANGEETHA, BOBAN N Ot Z79.899 04/08/2015 SANGEETHA, BOBAN N Ot Z85.820 04/14/2015 SANGEETHA, BOBAN N Ot F17.210 04/14/2015 SANGEETHA, BOBAN N Ot Z08 04/14/2015 SANGEETHA, BOBAN N Ot Z79.899 04/14/2015 SANGEETHA, BOBAN N Ot Z85.820 05/24/2015 SANGEETHA, BOBAN N Ot F17.210 NICOTINE DEPENDENCE, CIGARETTES, UNCOMPL 05/24/2015 SANGEETHA, BOBAN N Ot Z08 ENCNTR FOR FOLLOW-UP EXAM AFTER TRTMT FO 05/24/2015 MARYSE VIVAS N Ot 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 05/24/2015 SANGEETHA MARYSE N Ot Z85.820 PERSONAL HISTORY OF MALIGNANT MELANOMA O 10/04/2015 SANGEETHA STEFFANIEJE N Ot F17.210 NICOTINE DEPENDENCE, CIGARETTES, UNCOMPL 10/04/2015 SANGEETHA MARYSE Crowe Ot Z08 ENCNTR FOR FOLLOW-UP EXAM AFTER TRTMT FO 10/04/2015 SANGEETHA STEFFANIEJE N Ot 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 10/04/2015 SANGEETHA MARYSE N Ot Z85.820 PERSONAL HISTORY OF MALIGNANT MELANOMA O 11/04/2015 MARYSE VIVAS N Ot F17.210 NICOTINE DEPENDENCE, CIGARETTES, UNCOMPL 11/04/2015 SANGEETHAMARYSE N Ot Z08 ENCNTR FOR FOLLOW-UP EXAM AFTER TRTMT FO 11/04/2015 SANGEETHAMARYSE Ot 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 11/04/2015 SANGEETHA STEFFANIEJE N Ot Z85.820 PERSONAL HISTORY OF MALIGNANT MELANOMA O 01/09/2016 SANGEETHAMARYSE N Ot F17.210 NICOTINE DEPENDENCE, CIGARETTES, UNCOMPL 01/09/2016 SANGEETHAMARYSE N Ot Z08 ENCNTR FOR FOLLOW-UP EXAM AFTER TRTMT FO 01/09/2016 SANGEETHASTEFFANIEJE N Ot 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 01/09/2016 SANGEETHAMARYSE N Ot Z85.820 PERSONAL HISTORY OF MALIGNANT MELANOMA O 04/10/2016 MARYSE VIVAS N Ot F17.210 NICOTINE DEPENDENCE, CIGARETTES, UNCOMPL 04/10/2016 SANGEETHAMARYSE N Ot Z08 ENCNTR FOR FOLLOW-UP EXAM AFTER TRTMT FO 04/10/2016 MARYSE VIVAS N Ot 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 04/10/2016 SANGEETHAMARYSE N Ot Z85.820 PERSONAL HISTORY OF MALIGNANT MELANOMA O 04/13/2016 MARYSE VIVAS N Ot F17.210 NICOTINE DEPENDENCE, CIGARETTES, UNCOMPL 04/13/2016 MARYSE VIVAS N Ot Z08 ENCNTR FOR FOLLOW-UP EXAM AFTER TRTMT FO 04/13/2016 MARYSE VIVAS Ot 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 04/13/2016 MARYSE VIVAS Ot Z85.820 PERSONAL HISTORY OF MALIGNANT MELANOMA O 04/14/2016 Ot V10.82 HX- MALIG SKIN MELANOMA 04/14/2016 Ot V76.12 OTH SCREEN MAMMO- MALIGN NEOPLASM OF [place] 04/14/2016 Ot 368.9 VISU AL DISTURBANCE NOS 04/14/2016 Ot 781.3 LACK OF COORDINATION 04/14/2016 Ot V10.82 HX- MALIG SKIN MELANOMA 04/14/2016 Ot 054.9 HERP ES SIMPLEX NOS 04/14/2016 Ot 300.00 ANX IETY STATE NOS 04/14/2016 Ot 311 DEPRES SIVE DISORDER NEC 04/14/2016 Ot 368.9 VISU AL DISTURBANCE NOS 04/14/2016 Ot 465.9 ACUT E URI NOS 04/14/2016 Ot 780.93 MEM ORY LOSS 04/14/2016 Ot V10.82 HX- MALIG SKIN MELANOMA 04/14/2016 Ot V58.69 OTH MED,LT,CURRENT USE 04/14/2016 Ot V67.1 RADI OTHERAPY FOLLOW-UP 04/14/2016 Ot 054.9 HERP ES SIMPLEX NOS 04/14/2016 Ot 300.00 ANX IETY STATE NOS 04/14/2016 Ot 311 DEPRES SIVE DISORDER NEC 04/14/2016 Ot 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, STAGE III (MODER 04/14/2016 Ot V10.82 HX- MALIG SKIN MELANOMA 04/14/2016 Ot V58.69 OTH MED,LT,CURRENT USE 04/14/2016 Ot V67.1 RADI OTHERAPY FOLLOW-UP 04/14/2016 Ot 300.00 ANX IETY STATE NOS 04/14/2016 Ot 311 DEPRES SIVE DISORDER NEC 04/14/2016 Ot 780.79 OTH MALAISE FATIGUE 04/14/2016 Ot V10.82 HX- MALIG SKIN MELANOMA 04/14/2016 Ot V58.69 OTH MED,LT,CURRENT USE 04/14/2016 Ot V67.1 RADI OTHERAPY FOLLOW-UP 04/14/2016 Ot 723.1 CERV ICALGIA 04/14/2016 Ot 784.0 HEAD ACHE 04/14/2016 Ot V10.82 HX- MALIG SKIN MELANOMA 04/14/2016 Ot 054.9 HERP ES SIMPLEX NOS 04/14/2016 Ot 300.00 ANX IETY STATE NOS 04/14/2016 Ot 311 DEPRES SIVE DISORDER NEC 04/14/2016 Ot 782.2 LOCA L SUPRFICIAL SWELLNG 04/14/2016 Ot V10.82 HX- MALIG SKIN MELANOMA 04/14/2016 Ot V58.69 OTH MED,LT,CURRENT USE 04/14/2016 Ot V67.1 RADI OTHERAPY FOLLOW-UP 04/14/2016 Ot 054.9 HERP ES SIMPLEX NOS 04/14/2016 Ot 457.1 OTHE R LYMPHEDEMA 04/14/2016 Ot 529.6 GLOS SODYNIA 04/14/2016 Ot V10.82 HX- MALIG SKIN MELANOMA 04/14/2016 Ot V58.69 OTH MED,LT,CURRENT USE 04/14/2016 Ot V67.1 RADI OTHERAPY FOLLOW-UP 04/14/2016 Ot 300.00 ANX IETY STATE NOS 04/14/2016 Ot 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, STAGE III (MODER 04/14/2016 Ot V10.82 HX- MALIG SKIN MELANOMA 04/14/2016 Ot V58.69 OTH MED,LT,CURRENT USE 04/14/2016 Ot V67.1 RADI OTHERAPY FOLLOW-UP 04/14/2016 Ot 782.0 SKIN SENSATION DISTURB 04/14/2016 Ot 784.0 HEAD ACHE 04/14/2016 ALYSIA ARIAS APRN Ot 729.2 NEURALGIA/NEURITIS NOS 04/14/2016 Ot 723.1 CERV ICALGIA 04/14/2016 Ot V10.82 HX- MALIG SKIN MELANOMA 04/14/2016 Ot V58.69 OTH MED,LT,CURRENT USE 04/14/2016 Ot V67.1 RADI OTHERAPY FOLLOW-UP 04/14/2016 ANA LAURA EDWARD SOFTWARE APPLICATIONS DESIGNER Ot 054.9 HERPES SIMPLEX NOS 04/14/2016 ANA LAURA EDWARD SOFTWARE APPLICATIONS DESIGNER Ot 529.6 GLOSSODYNIA 04/14/2016 ANA LAURA EDWARD SOFTWARE APPLICATIONS DESIGNER Ot 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 NEURITIS NOS 04/14/2016 ANA LAURA EDWARD SOFTWARE APPLICATIONS DESIGNER Ot V10.82 HX-MALIG SKIN MELANOMA 04/14/2016 EDWARDANA LAURA Ot V58.69 OTH MED,LT,CURRENT USE 04/14/2016 EDWARDGUERLINEIDA Chaim SOFTWARE APPLICATIONS DESIGNER Ot V67.1 RADIOTHERAPY FOLLOW-UP 04/14/2016 EDWARD, GUERLINEIDA Chaim SOFTWARE APPLICATIONS DESIGNER Ot 172.9 MALIG MELANOMA SKIN NOS 04/14/2016 TYLOR MENDOZA MD Ot 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 52 LUMB/LUMBOSAC DISC DEGEN 04/14/2016 TYLOR MENDOZA MD Ot 723. 4 BRACHIAL NEURITIS NOS 04/14/2016 TYLOR MENDOZA MD Ot 724. 6 DISORDERS OF SACRUM 04/14/2016 TYLOR MENDOZA MD Ot 729. 1 MYALGIA AND MYOSITIS NOS 04/14/2016 TYLOR MENDOZA MD, Ot V58. 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 52 LUMB/LUMBOSAC DISC DEGEN 04/14/2016 TYLOR MENDOZA MD Ot 723. 1 CERVICALGIA 04/14/2016 TYLOR MENDOZA MD Ot 723. 4 BRACHIAL NEURITIS NOS 04/14/2016 TYLOR MENDOZA MD Ot 786. 50 CHEST PAIN NOS 04/14/2016 TYLOR MENDOZA MD Ot V58. 69 OTH MED,LT,CURRENT USE 04/14/2016 YOMAIRA MCKENZIE DO Ot V72. 84 EXAM PRE-OPERATIVE NOS 04/14/2016 MARYSE VIVAS Ot 276.69 OTHER FLUID OVERLOAD 04/14/2016 MARYSE VIVAS Ot 723.1 CERVICALGIA 04/14/2016 MARYSE VIVAS Ot V10.82 HX- MALIG SKIN MELANOMA 04/14/2016 MARYSE VIVAS Ot V58.69 OTH MED,LT,CURRENT USE 04/14/2016 MARYSE VIVAS Ot V67.1 RADIOTHERAPY FOLLOW-UP 04/14/2016 MARYSE VIVAS Ot 172.9 MALIG MELANOMA SKIN NOS 04/14/2016 TYLOR MENDOZA MD Ot 722. 4 CERVICAL DISC DEGEN 04/14/2016 Ot 276.69 OTH ER FLUID OVERLOAD 04/14/2016 Ot 723.1 CERV ICALGIA 04/14/2016 Ot V10.82 HX- MALIG SKIN MELANOMA 04/14/2016 Ot V58.69 OTH MED,LT,CURRENT USE 04/14/2016 Ot V67.1 RADI OTHERAPY FOLLOW-UP 04/14/2016 HARINDER LAM, MAISHA Malin Ot 473.0 CHR MAXILLARY SINUSITIS 04/14/2016 HARINDER LAM, MAISHA Malin Ot 473.2 CHR ETHMOIDAL SINUSITIS 04/14/2016 HARINDER LAM, MAISHA L Ot 756.0 ANOMAL SKULL/FACE BONES 04/14/2016 ARLENE LAM, SDAAF P Ot 473 .9 CHRONIC SINUSITIS NOS 04/14/2016 ARLENE LAM, SADAF Mcdaniel Ot 478 .0 HYPERTRPH NASAL TURBINAT 04/14/2016 ARLENE LAM, SADAF Mcdaniel Ot V72.81 FJER-[id number]-JAURLQOAK CARDIOVASCULAR 04/14/2016 ARLENE LAM, SADAF Mcdaniel Ot V72.83 EXAM PRE-OPERATIVE NEC 04/14/2016 ARLENE LAM, SADAF Mcdaniel Ot V74 .8 SCREEN-BACTERIAL DIS NEC 04/14/2016 MARYSE VIVAS Ot 457.1 OTHER LYMPHEDEMA 04/14/2016 MARYSE VIVAS Ot 723.1 CERVICALGIA 04/14/2016 MARYSE VIVAS Ot V10.82 HX- MALIG SKIN MELANOMA 04/14/2016 MARYSE VIVAS Ot V58.69 OTH MED,LT,CURRENT USE 04/14/2016 MARYSE VIVAS Ot V67.1 RADIOTHERAPY FOLLOW-UP 04/14/2016 MARYSE VIVAS Ot 789.00 ABDOMINAL PAIN, UNSPECIFIED SITE 04/14/2016 MARYSE VIVAS Ot 172.9 MALIG MELANOMA SKIN NOS 04/14/2016 MARYSE VIVAS Ot 780.96 GENERALIZED PAIN 04/14/2016 Ot 787.02 AGA SEA ALONE 04/14/2016 Ot 789.00 ABD OMINAL PAIN, UNSPECIFIED SITE 04/14/2016 Ot 793.11 POLO ITARY PULMONARY NODULE 04/14/2016 MARYSE VIVAS Ot V10.82 HX- MALIG SKIN MELANOMA 04/14/2016 MARYSE VIVAS Ot V58.69 OTH MED,LT,CURRENT USE 04/14/2016 MARYSE VIVAS Ot V67.1 RADIOTHERAPY FOLLOW-UP 04/14/2016 SANGEETHA MARYSE Crowe Ot 793.11 SOLITARY PULMONARY NODULE 04/14/2016 SANGEETHAMARYSE Ot 356.9 IDIO PERIPH NEURPTHY NOS 04/14/2016 SANGEETHA MARYSE Crowe Ot 719.49 JOINT PAIN-MULT JTS 04/14/2016 SANGEETHA MARYSE Crowe Ot 723.1 CERVICALGIA 04/14/2016 SANGEETHAMARYSE Ot V10.82 HX- MALIG SKIN MELANOMA 04/14/2016 SANGEETHA MARYSE Crowe Ot V58.69 OTH MED,LT,CURRENT USE 04/14/2016 SANGEETHA MARYSE Crowe Ot V67.1 RADIOTHERAPY FOLLOW-UP 04/14/2016 SANGEETHAMARYSE Ot F17.210 NICOTINE DEPENDENCE, CIGARETTES, UNCOMPL 04/14/2016 SANGEETHA MARYSE Crowe Ot Z08 ENCNTR FOR FOLLOW-UP EXAM AFTER TRTMT FO 04/14/2016 MARYSE VIVAS Ot 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 SNF (CURRENT) DRUG THERAPY 04/14/2016 MARYSE VIVAS Ot Z85.820 PERSONAL HISTORY OF MALIGNANT MELANOMA O 04/19/2016 MARYSE VIVAS Ot B00.9 HERPESVIRAL INFECTION, UNSPECIFIED 04/19/2016 MARYSE VIVAS Ot B02.9 ZOSTER WITHOUT COMPLICATIONS 04/19/2016 MARYSE VIVAS Ot F32.9 MAJOR DEPRESSIVE DISORDER, SINGLE EPISOD 04/19/2016 MARYSE VIVAS Ot F41.9 ANXIETY DISORDER, UNSPECIFIED 04/19/2016 MARYSE VIVAS Ot H20.9 UNSPECIFIED IRIDOCYCLITIS 04/19/2016 MARYSE VIVAS Ot K11.20 SIALOADENITIS, UNSPECIFIED 04/19/2016 MARYSE VIVAS Ot K21.9 GASTRO-ESOPHAGEAL REFLUX DISEASE WITHOUT 04/19/2016 MARYSE VIVAS Ot M79.7 FIBROMYALGIA 04/19/2016 MARYSE VIVAS Ot Z85.820 PERSONAL HISTORY OF MALIGNANT MELANOMA O 04/20/2016 MARYSE VIVAS Ot B00.9 HERPESVIRAL INFECTION, UNSPECIFIED 04/20/2016 MARYSE VIVAS Ot B02.9 ZOSTER WITHOUT COMPLICATIONS 04/20/2016 MARYSE VIVAS Ot F32.9 MAJOR DEPRESSIVE DISORDER, SINGLE EPISOD 04/20/2016 SANGEETHA MARYSE Crowe Ot F41.9 ANXIETY DISORDER, UNSPECIFIED 04/20/2016 SANGEETHA MARYSE N Ot H20.9 UNSPECIFIED IRIDOCYCLITIS 04/20/2016 SANGEETHA, MARYSE N Ot K11.20 SIALOADENITIS, UNSPECIFIED 04/20/2016 SANGEETHA MARYSE N Ot K21.9 GASTRO-ESOPHAGEAL REFLUX DISEASE WITHOUT 04/20/2016 SANGEETHAMARYSE Ot M79.7 FIBROMYALGIA 04/20/2016 SANGEETHA MARYSE N Ot Z85.820 PERSONAL HISTORY OF MALIGNANT MELANOMA O 04/21/2016 SANGEETHA MARYSE N Ot B00.9 HERPESVIRAL INFECTION, UNSPECIFIED 04/21/2016 SANGEETHAMARYSE N Ot B02.9 ZOSTER WITHOUT COMPLICATIONS 04/21/2016 SANGEETHAMARYSE Ot F32.9 MAJOR DEPRESSIVE DISORDER, SINGLE EPISOD 04/21/2016 SANGEETHAMARYSE Ot F41.9 ANXIETY DISORDER, UNSPECIFIED 04/21/2016 SANGEETHAMARYSE N Ot H20.9 UNSPECIFIED IRIDOCYCLITIS 04/21/2016 SANGEETHAMARYSE N Ot K11.20 SIALOADENITIS, UNSPECIFIED 04/21/2016 SANGEETHAMARYSE N Ot K21.9 GASTRO-ESOPHAGEAL REFLUX DISEASE WITHOUT 04/21/2016 SANGEETHAMARYSE Ot M79.7 FIBROMYALGIA 04/21/2016 SANGEETHAMARYSE N Ot Z85.820 PERSONAL HISTORY OF MALIGNANT MELANOMA O 04/21/2016 SANGEETHAMARYSE N Ot B00.9 HERPESVIRAL INFECTION, UNSPECIFIED 04/21/2016 SANGEETHAMARYSE N Ot B02.9 ZOSTER WITHOUT COMPLICATIONS 04/21/2016 SANGEETHAMARYSE N Ot F32.9 MAJOR DEPRESSIVE DISORDER, SINGLE EPISOD 04/21/2016 SANGEETHA MARYSE N Ot F41.9 ANXIETY DISORDER, UNSPECIFIED 04/21/2016 SANGEETHAMARYSE N Ot H20.9 UNSPECIFIED IRIDOCYCLITIS 04/21/2016 SANGEETHAMARYSE N Ot K11.20 SIALOADENITIS, UNSPECIFIED 04/21/2016 SANGEETHAMARYSE N Ot K21.9 GASTRO-ESOPHAGEAL REFLUX DISEASE WITHOUT 04/21/2016 SANGEETHAMARYSE N Ot M79.7 FIBROMYALGIA 04/21/2016 MARYSE VIVAS Ot Z85.820 PERSONAL HISTORY OF MALIGNANT MELANOMA O 04/24/2016 MARYSE VIVAS Ot F17.210 NICOTINE DEPENDENCE, CIGARETTES, UNCOMPL 04/24/2016 MARYSE VIVAS Ot Z08 ENCNTR FOR FOLLOW-UP EXAM AFTER TRTMT FO 04/24/2016 SANGEETHAMARYSE Ot 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 04/24/2016 MARYSE VIVAS Ot [...] FO 05/10/2016 MARYSE VIVAS Ot 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 05/10/2016 MARYSE VIVAS Ot Z85.820 PERSONAL HISTORY OF MALIGNANT MELANOMA O 07/11/2016 MARYSE VIVAS Ot F17.210 NICOTINE DEPENDENCE, CIGARETTES, UNCOMPL 07/11/2016 MARYSE VIVAS Ot Z08 ENCNTR FOR FOLLOW-UP EXAM AFTER TRTMT FO 07/11/2016 MARYSE VIVAS Ot 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 SNF (CURRENT) DRUG THERAPY 07/11/2016 MARYSE VIVAS Ot Z85.820 PERSONAL HISTORY OF MALIGNANT MELANOMA O 09/13/2016 MARYSE VIVAS Amrita Ot F17.210 NICOTINE DEPENDENCE, CIGARETTES, UNCOMPL 09/13/2016 SANGEETHA MARYSE Crowe Ot Z08 ENCNTR FOR FOLLOW-UP EXAM AFTER TRTMT FO 09/13/2016 SANGEETHA MARYSE Crowe Ot 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 09/13/2016 SANGEETHA, MARYSE Crowe Ot Z85.820 PERSONAL HISTORY OF MALIGNANT MELANOMA O 09/14/2016 SANGEETHA MARYSE Crowe Ot B00.9 HERPESVIRAL INFECTION, UNSPECIFIED 09/14/2016 SANGEETHA MARYSE Crowe Ot B02.9 ZOSTER WITHOUT COMPLICATIONS 09/14/2016 SANGEETHA, MARYSE Crowe Ot F32.9 MAJOR DEPRESSIVE DISORDER, SINGLE EPISOD 09/14/2016 SANGEETHAMARYSE Ot F41.9 ANXIETY DISORDER, UNSPECIFIED 09/14/2016 SANGEETHAMARYSE Ot K21.9 GASTRO-ESOPHAGEAL REFLUX DISEASE WITHOUT 09/14/2016 MARYSE VIVAS Ot M79.7 FIBROMYALGIA 09/14/2016 MARYSE VIVAS Ot Z85.820 PERSONAL HISTORY OF MALIGNANT MELANOMA O 10/06/2016 SANGEETHA MARYSE Crowe Ot B00.9 HERPESVIRAL INFECTION, UNSPECIFIED 10/06/2016 SANGEETHA, MARYSE Crowe Ot B02.9 ZOSTER WITHOUT COMPLICATIONS 10/06/2016 SANGEETHAMARYSE Ot B96.1 KLEBSIELLA PNEUMONIAE THE CAUSE OF DI 10/06/2016 SANGEETHAMARYSE Ot D70.9 NEUTROPENIA, UNSPECIFIED 10/06/2016 MARYSE VIVAS Ot F32.9 MAJOR DEPRESSIVE DISORDER, SINGLE EPISOD 10/06/2016 SANGEETHAMARYSE Ot F41.9 ANXIETY DISORDER, UNSPECIFIED 10/06/2016 SANGEETHAMARYSE SANTIAGO N Ot K21.9 GASTRO-ESOPHAGEAL REFLUX DISEASE WITHOUT 10/06/2016 MARYSE VIVAS Ot L73.9 FOLLICULAR DISORDER, UNSPECIFIED 10/06/2016 MARYSE VIVAS N Ot M79.7 FIBROMYALGIA 10/06/2016 MARYSE VIVAS N Ot R50.9 FEVER, UNSPECIFIED 10/06/2016 MARYSE VIVAS N Ot T80.218 A OTHER INFECTION DUE TO CENTRAL VENOUS CA 10/06/2016 MARYSE VIVAS Ot Z85.820 PERSONAL HISTORY OF MALIGNANT MELANOMA O 10/06/2016 MARYSE VIVAS Ot Z92.3 PERSONAL HISTORY OF IRRADIATION 12/04/2016 Ot 300.00 ANX IETY STATE NOS 12/04/2016 Ot 311 DEPRES SIVE DISORDER NEC 12/04/2016 Ot 780.79 OTH MALAISE FATIGUE 12/04/2016 Ot V10.82 HX- MALIG SKIN MELANOMA 12/04/2016 Ot V58.69 OTH MED,LT,CURRENT USE 12/04/2016 Ot V67.1 RADI OTHERAPY FOLLOW-UP 12/04/2016 Ot 723.1 CERV ICALGIA 12/04/2016 Ot 784.0 HEAD ACHE 12/04/2016 Ot V10.82 HX- MALIG SKIN MELANOMA 12/04/2016 Ot 054.9 HERP ES SIMPLEX NOS 12/04/2016 Ot 300.00 ANX IETY STATE NOS 12/04/2016 Ot 311 DEPRES SIVE DISORDER NEC 12/04/2016 Ot 782.2 LOCA L SUPRFICIAL SWELLNG 12/04/2016 Ot V10.82 HX- MALIG SKIN MELANOMA 12/04/2016 Ot V58.69 OTH MED,LT,CURRENT USE 12/04/2016 Ot V67.1 RADI OTHERAPY FOLLOW-UP 12/04/2016 Ot 054.9 HERP ES SIMPLEX NOS 12/04/2016 Ot 457.1 OTHE R LYMPHEDEMA 12/04/2016 Ot 529.6 GLOS SODYNIA 12/04/2016 Ot V10.82 HX- MALIG SKIN MELANOMA 12/04/2016 Ot V58.69 OTH MED,LT,CURRENT USE 12/04/2016 Ot V67.1 RADI OTHERAPY FOLLOW-UP 12/04/2016 Ot 300.00 ANX IETY STATE NOS 12/04/2016 Ot 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, STAGE III (MODER 12/04/2016 Ot V10.82 HX- MALIG SKIN MELANOMA 12/04/2016 Ot V58.69 OTH MED,LT,CURRENT USE 12/04/2016 Ot V67.1 RADI OTHERAPY FOLLOW-UP 12/04/2016 Ot 782.0 SKIN SENSATION DISTURB 12/04/2016 Ot 784.0 HEAD ACHE 12/04/2016 ALYSIA ARIAS APRN Ot 729.2 NEURALGIA/NEURITIS NOS 12/04/2016 Ot 723.1 CERV ICALGIA 12/04/2016 Ot V10.82 HX- MALIG SKIN MELANOMA 12/04/2016 Ot V58.69 OTH MED,LT,CURRENT USE 12/04/2016 Ot V67.1 RADI OTHERAPY FOLLOW-UP 12/04/2016 CHEYANNE ANA LAURA Rucker SOFTWARE APPLICATIONS DESIGNER Ot 054.9 HERPES SIMPLEX NOS 12/04/2016 EDWARDANA LAURA Rucker SOFTWARE APPLICATIONS DESIGNER Ot 529.6 GLOSSODYNIA 12/04/2016 EDWARD ANA LAURA Rucker SOFTWARE APPLICATIONS DESIGNER Ot 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 NEURITIS NOS 12/04/2016 EDWARDANA LAURA Rucker SOFTWARE APPLICATIONS DESIGNER Ot V10.82 HX-MALIG SKIN MELANOMA 12/04/2016 EDWARDANA LAURA Rucker SOFTWARE APPLICATIONS DESIGNER Ot V58.69 OTH MED,LT,CURRENT USE 12/04/2016 EDWARDANA LAURA Rucker SOFTWARE APPLICATIONS DESIGNER Ot V67.1 RADIOTHERAPY FOLLOW-UP 12/04/2016 GUERLINE EDWARDIDA Chaim SOFTWARE APPLICATIONS DESIGNER Ot 172.9 MALIG MELANOMA SKIN NOS 12/04/2016 TYLOR MENDOZA MD Ot 722. 51 THORACIC DISC DEGEN 12/04/2016 TYLOR MENDOZA MD Ot 722. 52 LUMB/LUMBOSAC DISC DEGEN 12/04/2016 TYLOR MENDOZA MD Ot 723. 4 BRACHIAL NEURITIS NOS 12/04/2016 TYLOR MENDOZA MD Ot 724. 6 DISORDERS OF SACRUM 12/04/2016 TYLOR MENDOZA MD Ot 729. 1 MYALGIA AND MYOSITIS NOS 12/04/2016 TYLOR MENDOZA MD Ot V58. 69 OTH MED,LT,CURRENT USE 12/04/2016 TYLOR MENDOZA MD Ot 722. 51 THORACIC DISC DEGEN 12/04/2016 TYLOR MENDOZA MD Ot 722. 52 LUMB/LUMBOSAC DISC DEGEN 12/04/2016 TYLOR MENDOZA MD Ot 723. 1 CERVICALGIA 12/04/2016 TYLOR MENDOZA MD Ot 723. 4 BRACHIAL NEURITIS NOS 12/04/2016 TYLOR MENDOZA MD Ot 786. 50 CHEST PAIN NOS 12/04/2016 TYLOR MENDOZA MD Ot V58. 69 OTH MED,LT,CURRENT USE 12/04/2016 YOMAIRA MCKENZIE DO Ot V72. 84 EXAM PRE-OPERATIVE NOS 12/04/2016 MARYSE VIVAS N Ot 276.69 OTHER FLUID OVERLOAD 12/04/2016 MARYSE VIVAS N Ot 723.1 CERVICALGIA 12/04/2016 MARYSE VIVAS N Ot V10.82 HX- MALIG SKIN MELANOMA 12/04/2016 MARYSE VIVAS N Ot V58.69 OTH MED,LT,CURRENT USE 12/04/2016 MARYSE VIVAS N Ot V67.1 RADIOTHERAPY FOLLOW-UP 12/04/2016 MARYSE VIVAS N Ot 172.9 MALIG MELANOMA SKIN NOS 12/04/2016 KELLY LAM, TYLOR Melgar Ot 722. 4 CERVICAL DISC DEGEN 12/04/2016 Ot 276.69 OTH ER FLUID OVERLOAD 12/04/2016 Ot 723.1 CERV ICALGIA 12/04/2016 Ot V10.82 HX- MALIG SKIN MELANOMA 12/04/2016 Ot V58.69 OTH MED,LT,CURRENT USE 12/04/2016 Ot V67.1 RADI OTHERAPY FOLLOW-UP 12/04/2016 HARINDER LAM, MAISHA L Ot 473.0 CHR MAXILLARY SINUSITIS 12/04/2016 HARINDER LAM, MAISHA L Ot 473.2 CHR ETHMOIDAL SINUSITIS 12/04/2016 HARINDER LAM, MAISHA L Ot 756.0 ANOMAL SKULL/FACE BONES 12/04/2016 ARLENE LAM, SADAF Mcdaniel Ot 473 .9 CHRONIC SINUSITIS NOS 12/04/2016 ARLENE LAM, SADAF Mcdaniel Ot 478 .0 HYPERTRPH NASAL TURBINAT 12/04/2016 SADAF JACOBS MD Ot V72.81 [id number] CARDIOVASCULAR 12/04/2016 SADAF JACOBS MD Ot V72.83 EXAM PRE-OPERATIVE NEC 12/04/2016 SADAF JACOBS MD Ot V74 .8 SCREEN-BACTERIAL DIS NEC 12/04/2016 SANGEETHA MARYSE N Ot 457.1 OTHER LYMPHEDEMA 12/04/2016 SANGEETHA MARYSE N Ot 723.1 CERVICALGIA 12/04/2016 SANGEETHA MARYSE N Ot V10.82 HX- MALIG SKIN MELANOMA 12/04/2016 MARYSE VIVAS N Ot V58.69 OTH MED,LT,CURRENT USE 12/04/2016 MARYSE VIVAS N Ot V67.1 RADIOTHERAPY FOLLOW-UP 12/04/2016 SANGEETHAMARYSE N Ot 789.00 ABDOMINAL PAIN, UNSPECIFIED SITE 12/04/2016 MARYSE VIVAS Ot 172.9 MALIG MELANOMA SKIN NOS 12/04/2016 MARYSE VIVAS Amrita Ot 780.96 GENERALIZED PAIN 12/04/2016 Ot 787.02 AGA SEA ALONE 12/04/2016 Ot 789.00 ABD OMINAL PAIN, UNSPECIFIED SITE 12/04/2016 Ot 793.11 POLO ITARY PULMONARY NODULE 12/04/2016 MARYSE VIVAS Amrita Ot V10.82 HX- MALIG SKIN MELANOMA 12/04/2016 MARYSE VIVAS Amrita Ot V58.69 OTH MED,LT,CURRENT USE 12/04/2016 MARYSE VIVAS Amrita Ot V67.1 RADIOTHERAPY FOLLOW-UP 12/04/2016 MARYSE VIVAS Amrita Ot 793.11 SOLITARY PULMONARY NODULE 12/04/2016 MARYSE VIVAS Amrita Ot 356.9 IDIO PERIPH NEURPTHY NOS 12/04/2016 MARYSE VIVAS Amrita Ot 719.49 JOINT PAIN-MULT JTS 12/04/2016 MARYSE VIVAS Amrita Ot 723.1 CERVICALGIA 12/04/2016 MARYSE VIVAS Amrita Ot V10.82 HX- MALIG SKIN MELANOMA 12/04/2016 MARYSE VIVAS Amrita Ot V58.69 OTH MED,LT,CURRENT USE 12/04/2016 MARYSE VIVAS Amrita Ot V67.1 RADIOTHERAPY FOLLOW-UP 12/04/2016 MARYSE VIVAS Amrita Ot F17.210 NICOTINE DEPENDENCE, CIGARETTES, UNCOMPL 12/04/2016 MARYSE VIVAS Amrita Ot Z08 ENCNTR FOR FOLLOW-UP EXAM AFTER TRTMT FO 12/04/2016 MARYSE VIVAS Amrita Ot 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 SNF (CURRENT) DRUG THERAPY 12/04/2016 MARYSE VIVAS Amrita Ot Z85.820 PERSONAL HISTORY OF MALIGNANT MELANOMA O 12/04/2016 ORENDER DO ROSALINE S Ot C43.9 MALIGNANT MELANOMA OF SKIN, UNSPECIFIED 12/04/2016 MEIRNDER DO ROSALINE S Ot M54.2 CERVICALGIA 12/05/2016 MEIRNDER DOALBERROSALINE S Ot C43.9 MALIGNANT MELANOMA OF SKIN, UNSPECIFIED 12/05/2016 ORENDER DO ROSALINE S Ot M54.2 CERVICALGIA 12/14/2016 ELHAM FLOR DOLINE Chaim Ot C43.9 MALIGNANT MELANOMA OF SKIN, UNSPECIFIED 12/14/2016 ROSALINE FLOR DO S Ot M54.2 CERVICALGIA 01/05/2017 MARYSE VIVAS N Ot B00.9 HERPESVIRAL INFECTION, UNSPECIFIED 01/05/2017 SANGEETHA, MARYSE N Ot E55.9 VITAMIN D DEFICIENCY, UNSPECIFIED 01/05/2017 SANGEETHA, MARYSE N Ot F17.210 NICOTINE DEPENDENCE, CIGARETTES, UNCOMPL 01/05/2017 SANGEETHA MARYSE N Ot G62.9 POLYNEUROPATHY, UNSPECIFIED 01/05/2017 SANGEETHAMARYSE N Ot Z08 ENCNTR FOR FOLLOW-UP EXAM AFTER TRTMT FO 01/05/2017 SANGEETHAMARYSE N Ot 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 01/05/2017 MARYSE VIVAS N Ot Z85.820 PERSONAL HISTORY OF MALIGNANT MELANOMA O 01/16/2017 SANGEETHAMARYSE N Ot B00.9 HERPESVIRAL INFECTION, UNSPECIFIED 01/16/2017 SANGEETHAMARYSE N Ot E55.9 VITAMIN D DEFICIENCY, UNSPECIFIED 01/16/2017 SANGEETHAMARYSE N Ot F17.210 NICOTINE DEPENDENCE, CIGARETTES, UNCOMPL 01/16/2017 SANGEETHAMARYSE N Ot G62.9 POLYNEUROPATHY, UNSPECIFIED 01/16/2017 SANGEETHAMARYSE N Ot Z08 ENCNTR FOR FOLLOW-UP EXAM AFTER TRTMT FO 01/16/2017 MARYSE VIVAS N Ot 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 SNF (CURRENT) DRUG THERAPY 01/16/2017 MARYSE VIVAS N Ot Z85.820 PERSONAL HISTORY OF MALIGNANT MELANOMA O 02/01/2017 SANGEETHAMARYSE N Ot B00.9 HERPESVIRAL INFECTION, UNSPECIFIED 02/01/2017 SANGEETHAMARYSE N Ot E55.9 VITAMIN D DEFICIENCY, UNSPECIFIED 02/01/2017 SANGEETHAMARYSE N Ot F17.210 NICOTINE DEPENDENCE, CIGARETTES, UNCOMPL 02/01/2017 SANGEETHA, MARYSE N Ot G62.9 POLYNEUROPATHY, UNSPECIFIED 02/01/2017 SANGEETHAMARYSE N Ot Z08 ENCNTR FOR FOLLOW-UP EXAM AFTER TRTMT FO 02/01/2017 MARYSE VIVAS N Ot 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 SNF (CURRENT) DRUG THERAPY 02/01/2017 MARYSE VIVAS Amrita Ot Z85.820 PERSONAL HISTORY OF MALIGNANT MELANOMA O 02/02/2017 ARLENE LAM, SADAF Mcdaniel Ot E04 .1 NONTOXIC SINGLE THYROID NODULE 02/02/2017 SADAF JACOBS MD Ot Z85.820 PERSONAL HISTORY OF MALIGNANT MELANOMA O 02/23/2017 SADAF JACOBS MD Ot E04 .1 NONTOXIC SINGLE THYROID NODULE 03/30/2017 ORENDER DO, ROSALINE S Ot H93.11 TINNITUS, RIGHT EAR 03/30/2017 ORENDER DO, ROSALINE S Ot I70.8 ATHEROSCLEROSIS OF OTHER ARTERIES 03/30/2017 ORENDER DO, ROSALINE S Ot Z85.820 PERSONAL HISTORY OF MALIGNANT MELANOMA O 03/30/2017 ORENDER DO, ROSALINE S Ot Z98.890 OTHER SPECIFIED POSTPROCEDURAL STATES 04/04/2017 SANGEETHAMARYSE SANTIAGO Amrita Ot B00.9 HERPESVIRAL INFECTION, UNSPECIFIED 04/04/2017 SANGEETHA MARYSE Amrita Ot E55.9 VITAMIN D DEFICIENCY, UNSPECIFIED 04/04/2017 MARYSE VIVAS Amrita Ot F17.210 NICOTINE DEPENDENCE, CIGARETTES, UNCOMPL 04/04/2017 MARYSE VIVAS Amrita Ot G62.9 POLYNEUROPATHY, UNSPECIFIED 04/04/2017 SANGEETHAMARYSE SANTIAGO Amrita Ot Z08 ENCNTR FOR FOLLOW-UP EXAM AFTER TRTMT FO 04/04/2017 MARYSE VIVAS Amrita Ot 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0 SKIN SENSATION DISTURB 04/04/2017 Ot 784.0 HEAD ACHE 04/04/2017 ALYSIA ARIAS APRN Ot 729.2 NEURALGIA/NEURITIS NOS 04/04/2017 Ot 723.1 CERV ICALGIA 04/04/2017 Ot V10.82 HX- MALIG SKIN MELANOMA 04/04/2017 Ot V58.69 OTH MED,LT,CURRENT USE 04/04/2017 Ot V67.1 RADI OTHERAPY FOLLOW-UP 04/04/2017 ANA LAURA EDWARD SOFTWARE APPLICATIONS DESIGNER Ot 054.9 HERPES SIMPLEX NOS 04/04/2017 ANA LAURA EDWARD SOFTWARE APPLICATIONS DESIGNER Ot 529.6 GLOSSODYNIA 04/04/2017 ANA LAURA EDWARD SOFTWARE APPLICATIONS DESIGNER Ot 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 NEURITIS NOS 04/04/2017 ANA LAURA EDWARD SOFTWARE APPLICATIONS DESIGNER Ot V10.82 HX-MALIG SKIN MELANOMA 04/04/2017 ANA LAURA EDWARD SOFTWARE APPLICATIONS DESIGNER Ot V58.69 OTH MED,LT,CURRENT USE 04/04/2017 ANA LAURA EDWARD SOFTWARE APPLICATIONS DESIGNER Ot V67.1 RADIOTHERAPY FOLLOW-UP 04/04/2017 ANA LAURA EDWARD SOFTWARE APPLICATIONS DESIGNER Ot 172.9 MALIG MELANOMA SKIN NOS 04/04/2017 TYLOR MENDOZA MD Ot 722. 51 THORACIC DISC DEGEN 04/04/2017 TYLOR MENDOZA MD Ot 722. 52 LUMB/LUMBOSAC DISC DEGEN 04/04/2017 TYLOR MENDOZA MD Ot 723. 4 BRACHIAL NEURITIS NOS 04/04/2017 TYLOR MENDOZA MD Ot 724. 6 DISORDERS OF SACRUM 04/04/2017 TYLOR MENDOZA MD Ot 729. 1 MYALGIA AND MYOSITIS NOS 04/04/2017 TYLOR MENDOZA MD Ot V58. 69 OTH MED,LT,CURRENT USE 04/04/2017 TYLOR MENDOZA MD Ot 722. 51 THORACIC DISC DEGEN 04/04/2017 TYLOR MENDOZA MD Ot 722. 52 LUMB/LUMBOSAC DISC DEGEN 04/04/2017 TYLOR MENDOZA MD Ot 723. 1 CERVICALGIA 04/04/2017 TYLOR MENDOZA MD Ot 723. 4 BRACHIAL NEURITIS NOS 04/04/2017 TYLOR MENDOZA MD Ot 786. 50 CHEST PAIN NOS 04/04/2017 TYLOR MENDOZA MD Ot V58. 69 OTH MED,LT,CURRENT USE 04/04/2017 MCKENZIEYOMAIRA HUFFMAN DO Ot V72. 84 EXAM PRE-OPERATIVE NOS 04/04/2017 MARYSE VIVAS Ot 276.69 OTHER FLUID OVERLOAD 04/04/2017 SANGEETHAMARYSE SANTIAGO Ot 723.1 CERVICALGIA 04/04/2017 SANGEETHAMARYSE SANTIAGO Ot V10.82 HX- MALIG SKIN MELANOMA 04/04/2017 SANGEETHAMARYSE Ot V58.69 OTH MED,LT,CURRENT USE 04/04/2017 SANGEETHAMARYSE SANTIAGO Ot V67.1 RADIOTHERAPY FOLLOW-UP 04/04/2017 MARYSE VIVAS Ot 172.9 MALIG MELANOMA SKIN NOS 04/04/2017 TYLOR MENDOZA MD Ot 722. 4 CERVICAL DISC DEGEN 04/04/2017 Ot 276.69 OTH ER FLUID OVERLOAD 04/04/2017 Ot 723.1 CERV ICALGIA 04/04/2017 Ot V10.82 HX- MALIG SKIN MELANOMA 04/04/2017 Ot V58.69 OTH MED,LT,CURRENT USE 04/04/2017 Ot V67.1 RADI OTHERAPY FOLLOW-UP 04/04/2017 HARINDER LAM, MAISHA Malin Ot 473.0 CHR MAXILLARY SINUSITIS 04/04/2017 HARINDER LAM, MAISHA Malin Ot 473.2 CHR ETHMOIDAL SINUSITIS 04/04/2017 HARINDER LAM, MAISHA Malin Ot 756.0 ANOMAL SKULL/FACE BONES 04/04/2017 SADAF JACOBS MD Ot 473 .9 CHRONIC SINUSITIS NOS 04/04/2017 SADAF JACOBS MD Ot 478 .0 HYPERTRPH NASAL TURBINAT 04/04/2017 SADAF JACOBS MD Ot V72.81 [id number] CARDIOVASCULAR 04/04/2017 SADAF JACOSB MD Ot V72.83 EXAM PRE-OPERATIVE NEC 04/04/2017 SADAF JACOBS MD Ot V74 .8 SCREEN-BACTERIAL DIS NEC 04/04/2017 MARYSE VIVAS Ot 457.1 OTHER LYMPHEDEMA 04/04/2017 SANGEETHA, BOBAN N Ot 723.1 CERVICALGIA 04/04/2017 SANGEETHA MARYSE Crowe Ot V10.82 HX- MALIG SKIN MELANOMA 04/04/2017 SANGEETHA MARYSE Crowe Ot V58.69 OTH MED,LT,CURRENT USE 04/04/2017 SANGEETHA MARYSE N Ot V67.1 RADIOTHERAPY FOLLOW-UP 04/04/2017 SANGEETHA MARYSE Crowe Ot 789.00 ABDOMINAL PAIN, UNSPECIFIED SITE 04/04/2017 SANGEETHAMARYSE N Ot 172.9 MALIG MELANOMA SKIN NOS 04/04/2017 SANGEETHA MARYSE N Ot 780.96 GENERALIZED PAIN 04/04/2017 Ot 787.02 AGA SEA ALONE 04/04/2017 Ot 789.00 ABD OMINAL PAIN, UNSPECIFIED SITE 04/04/2017 Ot 793.11 POLO ITARY PULMONARY NODULE 04/04/2017 SANGEETHAMARYSE Ot V10.82 HX- MALIG SKIN MELANOMA 04/04/2017 SANGEETHAMARYSE Ot V58.69 OTH MED,LT,CURRENT USE 04/04/2017 SANGEETHAMARYSE SANTIAGO Ot V67.1 RADIOTHERAPY FOLLOW-UP 04/04/2017 SANGEETHAMARYSE N Ot 793.11 SOLITARY PULMONARY NODULE 04/04/2017 SANGEETHAMARYSE Ot 356.9 IDIO PERIPH NEURPTHY NOS 04/04/2017 SANGEETHAMARYSE Ot 719.49 JOINT PAIN-MULT JTS 04/04/2017 SANGEETHAMARYSE N Ot 723.1 CERVICALGIA 04/04/2017 SANGEETHAMARYSE SANTIAGO Ot V10.82 HX- MALIG SKIN MELANOMA 04/04/2017 SANGEETHAMARYSE Ot V58.69 OTH MED,LT,CURRENT USE 04/04/2017 SANGEETHAMARYSE SANTIAGO Ot V67.1 RADIOTHERAPY FOLLOW-UP 04/04/2017 MARYSE VIVAS Ot B00.9 HERPESVIRAL INFECTION, UNSPECIFIED 04/04/2017 MARYSE VIVAS N Ot E55.9 VITAMIN D DEFICIENCY, UNSPECIFIED 04/04/2017 MARYSE VIVAS N Ot F17.210 NICOTINE DEPENDENCE, CIGARETTES, UNCOMPL 04/04/2017 MARYSE VIVAS N Ot G62.9 POLYNEUROPATHY, UNSPECIFIED 04/04/2017 MARYSE VIVAS Ot Z08 ENCNTR FOR FOLLOW-UP EXAM AFTER TRTMT FO 04/04/2017 MARYSE VIVAS Amrita Ot 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 04/04/2017 SANGEETHA, MARYSE Crowe Ot Z85.820 PERSONAL HISTORY OF MALIGNANT MELANOMA O 04/04/2017 ORENDER DO, ROSALINE S Ot C43.9 MALIGNANT MELANOMA OF SKIN, UNSPECIFIED 04/04/2017 MEIRNDER DO, ROSALINE S Ot M54.2 CERVICALGIA 04/04/2017 ARLENE LAM, SADAF Mcdaniel Ot E04 .1 NONTOXIC SINGLE THYROID NODULE 04/04/2017 ARLENE LAM, SADAF Mcdaniel Ot Z85.820 PERSONAL HISTORY OF MALIGNANT MELANOMA O 04/04/2017 ARLENE LAM, SADAF Mcdaniel Ot E04 .1 NONTOXIC SINGLE THYROID NODULE 04/04/2017 ORENDER DO, ROSALINE S Ot H93.11 TINNITUS, RIGHT EAR 04/04/2017 ORENDER DO, ROSALINE S Ot I70.8 ATHEROSCLEROSIS OF OTHER ARTERIES 04/04/2017 ORENDER DO, ROSALINE S Ot Z85.820 PERSONAL HISTORY OF MALIGNANT MELANOMA O 04/04/2017 ORENDER DO, ROSALINE S Ot Z98.890 OTHER SPECIFIED POSTPROCEDURAL STATES 04/05/2017 ORENDER DO, ROSALINE S Ot I65.01 OCCLUSION AND STENOSIS OF RIGHT VERTEBRA 04/05/2017 ORENDER DO, ROSALINE S Ot I70.8 ATHEROSCLEROSIS OF OTHER ARTERIES 04/05/2017 SANGEETHAMARYSE SANTIAGO Amrita Ot B00.9 HERPESVIRAL INFECTION, UNSPECIFIED 04/05/2017 MARYSE VIVAS Ot E55.9 VITAMIN D DEFICIENCY, UNSPECIFIED 04/05/2017 MARYSE VIVAS Ot F17.210 NICOTINE DEPENDENCE, CIGARETTES, UNCOMPL 04/05/2017 SANGEETHAMARYSE Ot G62.9 POLYNEUROPATHY, UNSPECIFIED 04/05/2017 MARYSE VIVAS Ot Z08 ENCNTR FOR FOLLOW-UP EXAM AFTER TRTMT FO 04/05/2017 SANGEETHAMARYSE Ot 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 SNF (CURRENT) DRUG THERAPY 04/05/2017 MARYSE VIVAS Ot Z85.820 PERSONAL HISTORY OF MALIGNANT MELANOMA O 04/11/2017 ORENDER DO, ROSALINE S Ot H93.11 TINNITUS, RIGHT EAR 04/11/2017 ROSALINE FLOR DO Ot I70.8 ATHEROSCLEROSIS OF OTHER ARTERIES 04/11/2017 ROSALINE FLOR DO Ot Z85.820 PERSONAL HISTORY OF MALIGNANT MELANOMA O 04/11/2017 ROSALINE FLOR DO Ot Z98.890 OTHER SPECIFIED POSTPROCEDURAL STATES 04/24/2017 SADAF JACOBS MD Ot E04 .2 NONTOXIC MULTINODULAR GOITER 05/09/2017 SADAF JACOBS MD Ot E04 .2 NONTOXIC MULTINODULAR GOITER 05/11/2017 ALYSIA ARIAS APRN Ot 729.2 NEURALGIA/NEURITIS NOS 05/11/2017 Ot 723.1 CERV ICALGIA 05/11/2017 Ot V10.82 HX- MALIG SKIN MELANOMA 05/11/2017 Ot V58.69 OTH MED,LT,CURRENT USE 05/11/2017 Ot V67.1 RADI OTHERAPY FOLLOW-UP 05/11/2017 ANA LAURA EDWARD SOFTWARE APPLICATIONS DESIGNER Ot 054.9 HERPES SIMPLEX NOS 05/11/2017 ANA LAURA EDWARD SOFTWARE APPLICATIONS DESIGNER Ot 529.6 GLOSSODYNIA 05/11/2017 ANA LAURA EDWARD SOFTWARE APPLICATIONS DESIGNER Ot 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 NEURITIS NOS 05/11/2017 ANA LAURA EDWARD SOFTWARE APPLICATIONS DESIGNER Ot V10.82 HX-MALIG SKIN MELANOMA 05/11/2017 ANA LAURA EDWARD SOFTWARE APPLICATIONS DESIGNER Ot V58.69 OTH MED,LT,CURRENT USE 05/11/2017 ANA LAURA EDWARD SOFTWARE APPLICATIONS DESIGNER Ot V67.1 RADIOTHERAPY FOLLOW-UP 05/11/2017 ANA LAURA EDWARD SOFTWARE APPLICATIONS DESIGNER Ot 172.9 MALIG MELANOMA SKIN NOS 05/11/2017 TYLOR MENDOZA MD Ot 722. 51 THORACIC DISC DEGEN 05/11/2017 TYLOR MENDOZA MD Ot 722. 52 LUMB/LUMBOSAC DISC DEGEN 05/11/2017 TYLOR MENDOZA MD Ot 723. 4 BRACHIAL NEURITIS NOS 05/11/2017 TYLOR MENDOZA MD Ot 724. 6 DISORDERS OF SACRUM 05/11/2017 TYLOR MENDOZA MD Ot 729. 1 MYALGIA AND MYOSITIS NOS 05/11/2017 TYLOR MENDOZA MD Ot V58. 69 OTH MED,LT,CURRENT USE 05/11/2017 TYLOR MENDOZA MD Ot 722. 51 THORACIC DISC DEGEN 05/11/2017 TYLOR MENDOZA MD Ot 722. 52 LUMB/LUMBOSAC DISC DEGEN 05/11/2017 TYLOR MENDOZA MD Ot 723. 1 CERVICALGIA 05/11/2017 TYLOR MENDOZA MD Ot 723. 4 BRACHIAL NEURITIS NOS 05/11/2017 TYLOR MENDOZA MD Ot 786. 50 CHEST PAIN NOS 05/11/2017 TYLOR MENDOZA MD Ot V58. 69 OTH MED,LT,CURRENT USE 05/11/2017 YOMAIRA MCKENZIE DO Ot V72. 84 EXAM PRE-OPERATIVE NOS 05/11/2017 SANGEETHA MARYSE N Ot 276.69 OTHER FLUID OVERLOAD 05/11/2017 MARYSE VIVAS N Ot 723.1 CERVICALGIA 05/11/2017 MARYSE VIVAS N Ot V10.82 HX- MALIG SKIN MELANOMA 05/11/2017 MARYSE VIVAS Amrita Ot V58.69 OTH MED,LT,CURRENT USE 05/11/2017 MARYSE VIVAS N Ot V67.1 RADIOTHERAPY FOLLOW-UP 05/11/2017 SANGEETHA MARYSE N Ot 172.9 MALIG MELANOMA SKIN NOS 05/11/2017 TYLOR MENDOZA MD Ot 722. 4 CERVICAL DISC DEGEN 05/11/2017 Ot 276.69 OTH ER FLUID OVERLOAD 05/11/2017 Ot 723.1 CERV ICALGIA 05/11/2017 Ot V10.82 HX- MALIG SKIN MELANOMA 05/11/2017 Ot V58.69 OTH MED,LT,CURRENT USE 05/11/2017 Ot V67.1 RADI OTHERAPY FOLLOW-UP 05/11/2017 HARINDER LAM, MAISHA Malin Ot 473.0 CHR MAXILLARY SINUSITIS 05/11/2017 MAISHA PIZANO MD Ot 473.2 CHR ETHMOIDAL SINUSITIS 05/11/2017 HARINDER LAM, MAISHA Malin Ot 756.0 ANOMAL SKULL/FACE BONES 05/11/2017 SADAF JACOBS MD Ot 473 .9 CHRONIC SINUSITIS NOS 05/11/2017 SADAF JACOBS MD Ot 478 .0 HYPERTRPH NASAL TURBINAT 05/11/2017 SADAF JACOBS MD Ot V72.81 [id number] CARDIOVASCULAR 05/11/2017 SADAF JACOBS MD Ot V72.83 EXAM PRE-OPERATIVE NEC 05/11/2017 ARLENE LAM, SADAF P Ot V74 .8 SCREEN-BACTERIAL DIS NEC 05/11/2017 MARYSE VIVAS N Ot 457.1 OTHER LYMPHEDEMA 05/11/2017 MARYSE VIVAS N Ot 723.1 CERVICALGIA 05/11/2017 MARYSE VIVAS N Ot V10.82 HX- MALIG SKIN MELANOMA 05/11/2017 MARYSE VIVAS Ot V58.69 OTH MED,LT,CURRENT USE 05/11/2017 MARYSE VIVAS N Ot V67.1 RADIOTHERAPY FOLLOW-UP 05/11/2017 MARYSE VIVAS N Ot 789.00 ABDOMINAL PAIN, UNSPECIFIED SITE 05/11/2017 MARYSE VIVAS N Ot 172.9 MALIG MELANOMA SKIN NOS 05/11/2017 MARYSE VIVAS N Ot 780.96 GENERALIZED PAIN 05/11/2017 Ot 787.02 AGA SEA ALONE 05/11/2017 Ot 789.00 ABD OMINAL PAIN, UNSPECIFIED SITE 05/11/2017 Ot 793.11 POLO ITARY PULMONARY NODULE 05/11/2017 MARYSE VIVAS N Ot V10.82 HX- MALIG SKIN MELANOMA 05/11/2017 MARYSE VIVAS Ot V58.69 OTH MED,LT,CURRENT USE 05/11/2017 MARYSE VIVAS N Ot V67.1 RADIOTHERAPY FOLLOW-UP 05/11/2017 MARYSE VIVAS N Ot 793.11 SOLITARY PULMONARY NODULE 05/11/2017 MARYSE VIVAS N Ot 356.9 IDIO PERIPH NEURPTHY NOS 05/11/2017 MARYSE VIVAS N Ot 719.49 JOINT PAIN-MULT JTS 05/11/2017 MARYSE VIVAS N Ot 723.1 CERVICALGIA 05/11/2017 MARYSE VIVAS N Ot V10.82 HX- MALIG SKIN MELANOMA 05/11/2017 MARYSE VIVAS Ot V58.69 OTH MED,LT,CURRENT USE 05/11/2017 MARYSE VIVAS N Ot V67.1 RADIOTHERAPY FOLLOW-UP 05/16/2017 MARYSE VIVAS Ot F17.210 NICOTINE DEPENDENCE, CIGARETTES, UNCOMPL 05/16/2017 MARYSE VIVAS N Ot Z08 ENCNTR FOR FOLLOW-UP EXAM AFTER TRTMT FO 05/16/2017 MARYSE VIVAS Ot 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 05/16/2017 MARYSE VIVAS Ot Z85.820 PERSONAL HISTORY OF MALIGNANT MELANOMA O 05/31/2017 Ot 054.9 HERP ES SIMPLEX NOS 05/31/2017 Ot 457.1 OTHE R LYMPHEDEMA 05/31/2017 Ot 529.6 GLOS SODYNIA 05/31/2017 Ot V10.82 HX- MALIG SKIN MELANOMA 05/31/2017 Ot V58.69 OTH MED,LT,CURRENT USE 05/31/2017 Ot V67.1 RADI OTHERAPY FOLLOW-UP 05/31/2017 Ot 300.00 ANX IETY STATE NOS 05/31/2017 Ot 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, STAGE III (MODER 05/31/2017 Ot V10.82 HX- MALIG SKIN MELANOMA 05/31/2017 Ot V58.69 OTH MED,LT,CURRENT USE 05/31/2017 Ot V67.1 RADI OTHERAPY FOLLOW-UP 05/31/2017 Ot 782.0 SKIN SENSATION DISTURB 05/31/2017 Ot 784.0 HEAD ACHE 05/31/2017 ALYSIA ARIAS REAL ESTATE LEASING AGENT Ot 729.2 NEURALGIA/NEURITIS NOS 05/31/2017 Ot 723.1 CERV ICALGIA 05/31/2017 Ot V10.82 HX- MALIG SKIN MELANOMA 05/31/2017 Ot V58.69 OTH MED,LT,CURRENT USE 05/31/2017 Ot V67.1 RADI OTHERAPY FOLLOW-UP 05/31/2017 ANA LAURA EDWARD SOFTWARE APPLICATIONS DESIGNER Ot 054.9 HERPES SIMPLEX NOS 05/31/2017 ANA LAURA EDWARD SOFTWARE APPLICATIONS DESIGNER Ot 529.6 GLOSSODYNIA 05/31/2017 ANA LAURA EDWARD SOFTWARE APPLICATIONS DESIGNER Ot 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 NEURITIS NOS 05/31/2017 ANA LAURA EDWARD SOFTWARE APPLICATIONS DESIGNER Ot V10.82 HX-MALIG SKIN MELANOMA 05/31/2017 ANA LAURA EDWARDP Ot V58.69 OTH MED,LT,CURRENT USE 05/31/2017 ANA LAURA EDWARD SOFTWARE APPLICATIONS DESIGNER Ot V67.1 RADIOTHERAPY FOLLOW-UP 05/31/2017 ANA LAURA EDWARD SOFTWARE APPLICATIONS DESIGNER Ot 172.9 MALIG MELANOMA SKIN NOS 05/31/2017 TYLOR MENDOZA MD Ot 722. 51 THORACIC DISC DEGEN 05/31/2017 TYLOR MENDOZA MD Ot 722. 52 LUMB/LUMBOSAC DISC DEGEN 05/31/2017 TYLOR MENDOZA MD Ot 723. 4 BRACHIAL NEURITIS NOS 05/31/2017 TYLOR MENDOZA MD Ot 724. 6 DISORDERS OF SACRUM 05/31/2017 TYLOR MENDOZA MD Ot 729. 1 MYALGIA AND MYOSITIS NOS 05/31/2017 TYLOR MENDOZA MD Ot V58. 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 52 LUMB/LUMBOSAC DISC DEGEN 05/31/2017 TYLOR MENDOZA MD Ot 723. 1 CERVICALGIA 05/31/2017 TYLOR MENDOZA MD Ot 723. 4 BRACHIAL NEURITIS NOS 05/31/2017 TYLOR MENDOZA MD Ot 786. 50 CHEST PAIN NOS 05/31/2017 TYLOR MENDOZA MD Ot V58. 69 OTH MED,LT,CURRENT USE 05/31/2017 YOMAIRA MCKENZIE DO Ot V72. 84 EXAM PRE-OPERATIVE NOS 05/31/2017 MARYSE VIVAS Ot 276.69 OTHER FLUID OVERLOAD 05/31/2017 MARYSE VIVAS Ot 723.1 CERVICALGIA 05/31/2017 MARYSE VIVAS Ot V10.82 HX- MALIG SKIN MELANOMA 05/31/2017 MARYSE VIVAS Ot V58.69 OTH MED,LT,CURRENT USE 05/31/2017 MARYSE VIVAS Ot V67.1 RADIOTHERAPY FOLLOW-UP 05/31/2017 MARYSE VIVAS Ot 172.9 MALIG MELANOMA SKIN NOS 05/31/2017 TYLOR MENDOZA MD Ot 722. 4 CERVICAL DISC DEGEN 05/31/2017 Ot 276.69 OTH ER FLUID OVERLOAD 05/31/2017 Ot 723.1 CERV ICALGIA 05/31/2017 Ot V10.82 HX- MALIG SKIN MELANOMA 05/31/2017 Ot V58.69 OTH MED,LT,CURRENT USE 05/31/2017 Ot V67.1 RADI OTHERAPY FOLLOW-UP 05/31/2017 HARINDER LAM, MAISHA Malin Ot 473.0 CHR MAXILLARY SINUSITIS 05/31/2017 HARINDER LAM, MAISHA Malin Ot 473.2 CHR ETHMOIDAL SINUSITIS 05/31/2017 HARINDER LAM, MAISHA Malin Ot 756.0 ANOMAL SKULL/FACE BONES 05/31/2017 ARLENE LAM, SADAF P Ot 473 .9 CHRONIC SINUSITIS NOS 05/31/2017 ARLENE LAM, SADAF Mcdaniel Ot 478 .0 HYPERTRPH NASAL TURBINAT 05/31/2017 ARLENE LAM, SADAF Mcdaniel Ot V72.81 SJUE-CET-IARFDCSPX CARDIOVASCULAR 05/31/2017 ARLENE LAM, SADAF Mcdaniel Ot V72.83 EXAM PRE-OPERATIVE NEC 05/31/2017 ARLENE LAM, SADAF P Ot V74 .8 SCREEN-BACTERIAL DIS NEC 05/31/2017 MARYSE VIVAS N Ot 457.1 OTHER LYMPHEDEMA 05/31/2017 SANGEETHA BOBJE N Ot 723.1 CERVICALGIA 05/31/2017 MARYSE VIVAS N Ot V10.82 HX- MALIG SKIN MELANOMA 05/31/2017 MARYSE VIVAS N Ot V58.69 OTH MED,LT,CURRENT USE 05/31/2017 SANGEETHA BOBAN N Ot V67.1 RADIOTHERAPY FOLLOW-UP 05/31/2017 MARYSE VIVAS N Ot 789.00 ABDOMINAL PAIN, UNSPECIFIED SITE 05/31/2017 SANGEETHA BOBAN N Ot 172.9 MALIG MELANOMA SKIN NOS 05/31/2017 SANGEETHA BOBJE N Ot 780.96 GENERALIZED PAIN 05/31/2017 Ot 787.02 AGA SEA ALONE 05/31/2017 Ot 789.00 ABD OMINAL PAIN, UNSPECIFIED SITE 05/31/2017 Ot 793.11 POLO ITARY PULMONARY NODULE 05/31/2017 MARYSE VIVAS N Ot V10.82 HX- MALIG SKIN MELANOMA 05/31/2017 STEFFANIE VIVASAN N Ot V58.69 OTH MED,LT,CURRENT USE 05/31/2017 SANGEETHA BOBAN N Ot V67.1 RADIOTHERAPY FOLLOW-UP 05/31/2017 SANGEETHA BOBAN N Ot 793.11 SOLITARY PULMONARY NODULE 05/31/2017 SANGEETHA BOBAN N Ot 356.9 IDIO PERIPH NEURPTHY NOS 05/31/2017 SANGEETHA BOBAN N Ot 719.49 JOINT PAIN-MULT JTS 05/31/2017 MARYSE VIVAS Ot 723.1 CERVICALGIA 05/31/2017 MARYSE VIVAS Ot V10.82 HX- MALIG SKIN MELANOMA 05/31/2017 MARYSE VIVAS Ot V58.69 OTH MED,LT,CURRENT USE 05/31/2017 MARYSE VIVAS Ot V67.1 RADIOTHERAPY FOLLOW-UP 05/31/2017 MARYSE VIVAS Ot F17.210 NICOTINE DEPENDENCE, CIGARETTES, UNCOMPL 05/31/2017 MARYSE VIVAS Ot Z08 ENCNTR FOR FOLLOW-UP EXAM AFTER TRTMT FO 05/31/2017 MARYSE VIVAS Amrita Ot 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 SNF (CURRENT) DRUG THERAPY 05/31/2017 MARYSE VIVAS Amrita Ot Z85.820 PERSONAL HISTORY OF MALIGNANT MELANOMA O 05/31/2017 MARISOLER ELHAM LEACHLINE S Ot C43.9 MALIGNANT MELANOMA OF SKIN, UNSPECIFIED 05/31/2017 ROSALINE FLOR DO S Ot M54.2 CERVICALGIA 05/31/2017 ARLENE LAM, SADAF Mcdaniel Ot E04 .1 NONTOXIC SINGLE THYROID NODULE 05/31/2017 ARLENE LAM, SADAF Mcdaniel Ot Z85.820 PERSONAL HISTORY OF MALIGNANT MELANOMA O 05/31/2017 ARLENE LAM, SADAF Mcdaniel Ot E04 .1 NONTOXIC SINGLE THYROID NODULE 05/31/2017 MEIRNDALBER LEUNG DOQUELINE S Ot H93.11 TINNITUS, RIGHT EAR 05/31/2017 ALBER FLOR DOQUELINE S Ot I70.8 ATHEROSCLEROSIS OF OTHER ARTERIES 05/31/2017 MEIRNDER ALBER LEACHROSALINE S Ot Z85.820 PERSONAL HISTORY OF MALIGNANT MELANOMA O 05/31/2017 MEIRNDER DO ROSALINE S Ot Z98.890 OTHER SPECIFIED POSTPROCEDURAL STATES 05/31/2017 MEIRNDER DO ROSALINE S Ot I65.01 OCCLUSION AND STENOSIS OF RIGHT VERTEBRA 05/31/2017 MEIRNDER DO ROSALINE S Ot I70.8 ATHEROSCLEROSIS OF OTHER ARTERIES 05/31/2017 MARYSE VIVAS Amrita Ot B00.9 HERPESVIRAL INFECTION, UNSPECIFIED 05/31/2017 MARYSE VIVAS Amrita Ot E55.9 VITAMIN D DEFICIENCY, UNSPECIFIED 05/31/2017 MARYSE VIVAS Amrita Ot F17.210 NICOTINE DEPENDENCE, CIGARETTES, UNCOMPL 05/31/2017 MARYSE VIVAS Ot G62.9 POLYNEUROPATHY, UNSPECIFIED 05/31/2017 MARYSE VIVAS Ot Z08 ENCNTR FOR FOLLOW-UP EXAM AFTER TRTMT FO 05/31/2017 MARYSE VIVAS Ot 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 SNF (CURRENT) DRUG THERAPY 05/31/2017 MARYSE VIVAS Ot Z85.820 PERSONAL HISTORY OF MALIGNANT MELANOMA O 05/31/2017 ARLENE LAM, SADAF Mcdaniel Ot E04 .2 NONTOXIC MULTINODULAR GOITER 07/03/2017 HUGO ALYSIA D REAL ESTATE LEASING AGENT Ot 729.2 NEURALGIA/NEURITIS NOS 07/03/2017 Ot 723.1 CERV ICALGIA 07/03/2017 Ot V10.82 HX- MALIG SKIN MELANOMA 07/03/2017 Ot V58.69 OTH MED,LT,CURRENT USE 07/03/2017 Ot V67.1 RADI OTHERAPY FOLLOW-UP 07/03/2017 ANA LAURA EDWARD SOFTWARE APPLICATIONS DESIGNER Ot 054.9 HERPES SIMPLEX NOS 07/03/2017 ANA LAURA EDWARD SOFTWARE APPLICATIONS DESIGNER Ot 529.6 GLOSSODYNIA 07/03/2017 ANA LAURA EDWARD SOFTWARE APPLICATIONS DESIGNER Ot 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 NEURITIS NOS 07/03/2017 ANA LAURA EDWARD SOFTWARE APPLICATIONS DESIGNER Ot V10.82 HX-MALIG SKIN MELANOMA 07/03/2017 ANA LAURA EDWARD SOFTWARE APPLICATIONS DESIGNER Ot V58.69 OTH MED,LT,CURRENT USE 07/03/2017 ANA LAURA EDWARD SOFTWARE APPLICATIONS DESIGNER Ot V67.1 RADIOTHERAPY FOLLOW-UP 07/03/2017 ANA LAURA EDWARD SOFTWARE APPLICATIONS DESIGNER Ot 172.9 MALIG MELANOMA SKIN NOS 07/03/2017 TYLOR MENDOZA MD Ot 722. 51 THORACIC DISC DEGEN 07/03/2017 TYLOR MENDOZA MD Ot 722. 52 LUMB/LUMBOSAC DISC DEGEN 07/03/2017 TYLOR MENDOZA MD Ot 723. 4 BRACHIAL NEURITIS NOS 07/03/2017 TYLOR MENDOZA MD Ot 724. 6 DISORDERS OF SACRUM 07/03/2017 TYLOR MENDOZA MD Ot 729. 1 MYALGIA AND MYOSITIS NOS 07/03/2017 TYLOR MENDOZA MD Ot V58. 69 OTH MED,LT,CURRENT USE 07/03/2017 TYLOR MENDOZA MD Ot 722. 51 THORACIC DISC DEGEN 07/03/2017 TYLOR MENDOZA MD Ot 722. 52 LUMB/LUMBOSAC DISC DEGEN 07/03/2017 TYLOR MENDOZA MD Ot 723. 1 CERVICALGIA 07/03/2017 TYLOR MENDOZA MD Ot 723. 4 BRACHIAL NEURITIS NOS 07/03/2017 TYLOR MENDOZA MD Ot 786. 50 CHEST PAIN NOS 07/03/2017 TYLOR MENDOZA MD Ot V58. 69 OTH MED,LT,CURRENT USE 07/03/2017 YOMAIRA MCKENZIE DO Ot V72. 84 EXAM PRE-OPERATIVE NOS 07/03/2017 MARYSE VIVAS N Ot 276.69 OTHER FLUID OVERLOAD 07/03/2017 MARYSE VIVAS N Ot 723.1 CERVICALGIA 07/03/2017 MARYSE VIVAS N Ot V10.82 HX- MALIG SKIN MELANOMA 07/03/2017 MARYSE VIVAS Ot V58.69 OTH MED,LT,CURRENT USE 07/03/2017 MARYSE VIVAS N Ot V67.1 RADIOTHERAPY FOLLOW-UP 07/03/2017 MARYSE VIVAS N Ot 172.9 MALIG MELANOMA SKIN NOS 07/03/2017 TYLOR MENDOZA MD Ot 722. 4 CERVICAL DISC DEGEN 07/03/2017 Ot 276.69 OTH ER FLUID OVERLOAD 07/03/2017 Ot 723.1 CERV ICALGIA 07/03/2017 Ot V10.82 HX- MALIG SKIN MELANOMA 07/03/2017 Ot V58.69 OTH MED,LT,CURRENT USE 07/03/2017 Ot V67.1 RADI OTHERAPY FOLLOW-UP 07/03/2017 HARINDER LAM, MAISHA Malin Ot 473.0 CHR MAXILLARY SINUSITIS 07/03/2017 MAISHA PIZANO MD Ot 473.2 CHR ETHMOIDAL SINUSITIS 07/03/2017 MAISHA PIZANO MD Ot 756.0 ANOMAL SKULL/FACE BONES 07/03/2017 SADAF JACOBS MD Ot 473 .9 CHRONIC SINUSITIS NOS 07/03/2017 SADAF JACOBS MD Ot 478 .0 HYPERTRPH NASAL TURBINAT 07/03/2017 SADAF JACOBS MD Ot V72.81 IGHR-[id number] CARDIOVASCULAR 07/03/2017 SADAF JACOBS MD Ot V72.83 EXAM PRE-OPERATIVE NEC 07/03/2017 ARLENE LAM, SADAF P Ot V74 .8 SCREEN-BACTERIAL DIS NEC 07/03/2017 MARYSE VIVAS N Ot 457.1 OTHER LYMPHEDEMA 07/03/2017 SANGEETHA MARYSE N Ot 723.1 CERVICALGIA 07/03/2017 SANGEETHA STEFFANIEJE N Ot V10.82 HX- MALIG SKIN MELANOMA 07/03/2017 MARYSE VIVAS Amrita Ot V58.69 OTH MED,LT,CURRENT USE 07/03/2017 MARYSE VIVAS N Ot V67.1 RADIOTHERAPY FOLLOW-UP 07/03/2017 MARYSE VIVAS N Ot 789.00 ABDOMINAL PAIN, UNSPECIFIED SITE 07/03/2017 SANGEETHAMARYSE N Ot 172.9 MALIG MELANOMA SKIN NOS 07/03/2017 SANGEETHA MARYSE N Ot 780.96 GENERALIZED PAIN 07/03/2017 Ot 787.02 AGA SEA ALONE 07/03/2017 Ot 789.00 ABD OMINAL PAIN, UNSPECIFIED SITE 07/03/2017 Ot 793.11 POLO ITARY PULMONARY NODULE 07/03/2017 SANGEETHA STEFFANIEJE N Ot V10.82 HX- MALIG SKIN MELANOMA 07/03/2017 MARYSE VIVAS Amrita Ot V58.69 OTH MED,LT,CURRENT USE 07/03/2017 SANGEETHA, MARYSE N Ot V67.1 RADIOTHERAPY FOLLOW-UP 07/03/2017 MARYSE VIVAS N Ot 793.11 SOLITARY PULMONARY NODULE 07/03/2017 MARYSE VIVAS N Ot 356.9 IDIO PERIPH NEURPTHY NOS 07/03/2017 SANGEETHA, STEFFANIEJE N Ot 719.49 JOINT PAIN-MULT JTS 07/03/2017 SANGEETHAMARYSE N Ot 723.1 CERVICALGIA 07/03/2017 SANGEETHA STEFFANIEJE N Ot V10.82 HX- MALIG SKIN MELANOMA 07/03/2017 SANGEETHASTEFFANIEJE Amrita Ot V58.69 OTH MED,LT,CURRENT USE 07/03/2017 SANGEETHAMARYSE SANTIAGO N Ot V67.1 RADIOTHERAPY FOLLOW-UP 07/03/2017 MARYSE VIVAS N Ot F17.210 NICOTINE DEPENDENCE, CIGARETTES, UNCOMPL 07/03/2017 MARYSE VIVAS N Ot Z08 ENCNTR FOR FOLLOW-UP EXAM AFTER TRTMT FO 07/03/2017 MARYSE VIVAS Ot 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 07/03/2017 MARYSE VIVAS Ot Z85.820 PERSONAL HISTORY OF MALIGNANT MELANOMA O 07/05/2017 MEIRNDMADHU LEACH ROSALINE S Ot 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 07/05/2017 MEIRNDMADHU LEACH ROSALINE S Ot B02.9 ZOSTER WITHOUT COMPLICATIONS 07/05/2017 MEIRNDER DO ROSALINE S Ot F32.9 MAJOR DEPRESSIVE DISORDER, SINGLE EPISOD 07/05/2017 MEIRNDER , ROSALINE S Ot F41.9 ANXIETY DISORDER, UNSPECIFIED 07/05/2017 MARISOLER DO ROSALINE S Ot G43.909 MIGRAINE, UNSP, NOT INTRACTABLE, WITHOUT 07/05/2017 MEIRNDER DO ROSALINE S Ot I10 ESSENTIAL (PRIMARY) HYPERTENSION 07/05/2017 MARISOL DO ROSALINE S Ot K21.9 GASTRO-ESOPHAGEAL REFLUX DISEASE WITHOUT 07/05/2017 MARISOLER DO ROSALINE S Ot K44.9 DIAPHRAGMATIC HERNIA WITHOUT OBSTRUCTION 07/05/2017 MARISOLER DO ROSALINE S Ot K58.9 IRRITABLE BOWEL SYNDROME WITHOUT DIARRHE 07/05/2017 MANPREET LEACH ROSALINE S Ot M54.10 RADICULOPATHY, SITE UNSPECIFIED 07/05/2017 MANPREET LEACH ROSALINE S Ot M79.7 FIBROMYALGIA 07/05/2017 MARISOLMADHU DO ROSALINE S Ot R13.10 DYSPHAGIA, UNSPECIFIED 07/05/2017 MANPREET LEACH ROSALINE S Ot Z85.820 PERSONAL HISTORY OF MALIGNANT MELANOMA O 07/05/2017 MARISOLMADHU DO ROSALINE S Ot Z92.21 PERSONAL HISTORY OF ANTINEOPLASTIC CHEMO 07/05/2017 MANPREET LEACH ROSALINE S Ot Z92.3 PERSONAL HISTORY OF IRRADIATION 07/05/2017 ELHAM FLOR DOLINE S Ot 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 07/05/2017 ELHAM FLOR DOLINE S Ot B02.9 ZOSTER WITHOUT COMPLICATIONS 07/05/2017 MEIRNDELHAM LEUNG DOLINE S Ot F32.9 MAJOR DEPRESSIVE DISORDER, SINGLE EPISOD 07/05/2017 MEIRNDELHAM LEUNG DOLINE S Ot F41.9 ANXIETY DISORDER, UNSPECIFIED 07/05/2017 MEIRND , ROSALINE Rucker Ot G43.909 MIGRAINE, UNSP, NOT INTRACTABLE, WITHOUT 07/05/2017 MEIRND ROSALINE LEACH Ot I10 ESSENTIAL (PRIMARY) HYPERTENSION 07/05/2017 MEIRND ROSALINE LEACH Chaim Ot K21.9 GASTRO-ESOPHAGEAL REFLUX DISEASE WITHOUT 07/05/2017 [facility] Chaim Ot K44.9 DIAPHRAGMATIC HERNIA WITHOUT OBSTRUCTION 07/05/2017 [facility] AL[facility] LEACHROSALINE S Ot K58.9 IRRITABLE BOWEL SYNDROME WITHOUT DIARRHE 07/05/2017 MEIRND ALBER LEACHROSALINE Chaim Ot M54.10 RADICULOPATHY, SITE UNSPECIFIED 07/05/2017 MARISOL ROSALINE LEACH Ot M79.7 FIBROMYALGIA 07/05/2017 MARISOL ROSALINE LEACH Ot R13.10 DYSPHAGIA, UNSPECIFIED 07/05/2017 [facility] ROSALINE LEACH Chaim Ot Z85.820 PERSONAL HISTORY OF MALIGNANT MELANOMA O 07/05/2017 [facility] ALBER LEACHROSALINE Chaim Ot Z92.21 PERSONAL HISTORY OF ANTINEOPLASTIC CHEMO 07/05/2017 [facility] ALBER LEACHROSALINE Chaim Ot Z92.3 PERSONAL HISTORY OF IRRADIATION 07/05/2017 MARISOL ROSALINE LEACH Ot 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 07/05/2017 [facility] ROSALINE LEACH Chaim Ot B02.9 ZOSTER WITHOUT COMPLICATIONS 07/05/2017 ROSALINE FLOR DO Ot F32.9 MAJOR DEPRESSIVE DISORDER, SINGLE EPISOD 07/05/2017 [facility] ROSALINE LEACH Chaim Ot F41.9 ANXIETY DISORDER, UNSPECIFIED 07/05/2017 [facility] ALBER LEACHROSALINE Chaim Ot G43.909 MIGRAINE, UNSP, NOT INTRACTABLE, WITHOUT 07/05/2017 MEIRND ROSALINE LEACH Ot I10 ESSENTIAL (PRIMARY) HYPERTENSION 07/05/2017 MEIRND ROSALINE LEACH Chaim Ot K21.9 GASTRO-ESOPHAGEAL REFLUX DISEASE WITHOUT 07/05/2017 MEIRNDER ROSALINE LEACH Chaim Ot K44.9 DIAPHRAGMATIC HERNIA WITHOUT OBSTRUCTION 07/05/2017 MEIRND ROSALINE LEACH Chaim Ot K58.9 IRRITABLE BOWEL SYNDROME WITHOUT DIARRHE 07/05/2017 ROSALINE FLOR DO Ot M54.10 RADICULOPATHY, SITE UNSPECIFIED 07/05/2017 ROSALINE FLOR DO Ot M79.7 FIBROMYALGIA 07/05/2017 ROSALINE FLOR DO Ot R13.10 DYSPHAGIA, UNSPECIFIED 07/05/2017 ROSALINE FLOR DO Ot Z85.820 PERSONAL HISTORY OF MALIGNANT MELANOMA O 07/05/2017 MARISOL ROSALINE LEACH Ot Z92.21 PERSONAL HISTORY OF ANTINEOPLASTIC CHEMO 07/05/2017 MARISOL ROSALINE LEACH Ot Z92.3 PERSONAL HISTORY OF IRRADIATION 07/10/2017 MARISOL ROSALINE LEACH Ot 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 07/10/2017 ROSALINE FLOR DO Ot B02.9 ZOSTER WITHOUT COMPLICATIONS 07/10/2017 ROSALINE FLOR DO Ot F32.9 MAJOR DEPRESSIVE DISORDER, SINGLE EPISOD 07/10/2017 ROSALINE FLOR DO Ot F41.9 ANXIETY DISORDER, UNSPECIFIED 07/10/2017 MARISOL ROSALINE LEACH Ot G43.909 MIGRAINE, UNSP, NOT INTRACTABLE, WITHOUT 07/10/2017 ROSALINE FLOR DO Ot I10 ESSENTIAL (PRIMARY) HYPERTENSION 07/10/2017 ROSALINE FLOR DO Ot K21.9 GASTRO-ESOPHAGEAL REFLUX DISEASE WITHOUT 07/10/2017 ROSALINE FLOR DO Ot K44.9 DIAPHRAGMATIC HERNIA WITHOUT OBSTRUCTION 07/10/2017 ROSALINE FLOR DO Ot K58.9 IRRITABLE BOWEL SYNDROME WITHOUT DIARRHE 07/10/2017 ROSALINE FLOR DO Ot M54.10 RADICULOPATHY, SITE UNSPECIFIED 07/10/2017 ROSALINE FLOR DO Ot M79.7 FIBROMYALGIA 07/10/2017 ROSALINE FLOR DO Ot R13.10 DYSPHAGIA, UNSPECIFIED 07/10/2017 ROSALINE FLOR DO Ot Z85.820 PERSONAL HISTORY OF MALIGNANT MELANOMA O 07/10/2017 ROSALINE FLOR DO Ot Z92.21 PERSONAL HISTORY OF ANTINEOPLASTIC CHEMO 07/10/2017 ELHAM FLOR DOLINE Chaim Ot Z92.3 PERSONAL HISTORY OF IRRADIATION 07/13/2017 ROSALINE FLOR DO Ot 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 07/13/2017 MARISOL ROSALINE LEACH Ot B02.9 ZOSTER WITHOUT COMPLICATIONS 07/13/2017 MARISOL ROSALINE LEACH Ot F32.9 MAJOR DEPRESSIVE DISORDER, SINGLE EPISOD 07/13/2017 [facility] ALBER LEACHROSALINE S Ot F41.9 ANXIETY DISORDER, UNSPECIFIED 07/13/2017 [facility] DO ROSALINE Rucker Ot G43.909 MIGRAINE, UNSP, NOT INTRACTABLE, WITHOUT 07/13/2017 MARISOL ROSALINE LEACH Ot I10 ESSENTIAL (PRIMARY) HYPERTENSION 07/13/2017 [facility] ROSALINE LEACH Ot K21.9 GASTRO-ESOPHAGEAL REFLUX DISEASE WITHOUT 07/13/2017 [facility] ROSALINE LEACH Ot K44.9 DIAPHRAGMATIC HERNIA WITHOUT OBSTRUCTION 07/13/2017 MARISOL ROSALINE LEACH Ot K58.9 IRRITABLE BOWEL SYNDROME WITHOUT DIARRHE 07/13/2017 [facility] ALBER LEACHROSALINE Chaim Ot M54.10 RADICULOPATHY, SITE UNSPECIFIED 07/13/2017 ALBER FLOR DOQUELINE Chaim Ot M75.52 BURSITIS OF LEFT SHOULDER 07/13/2017 MARISOL ALBER LEACHROSALINE S Ot M79.7 FIBROMYALGIA 07/13/2017 MARISOL ALBER LEACHROSALINE S Ot R13.10 DYSPHAGIA, UNSPECIFIED 07/13/2017 MARISOL ALBER LEACHROSALINE S Ot Z85.820 PERSONAL HISTORY OF MALIGNANT MELANOMA O 07/13/2017 MARISOL ALBER LEACHROSALINE S Ot Z92.21 PERSONAL HISTORY OF ANTINEOPLASTIC CHEMO 07/13/2017 MARISOL ALBER LEACHROSALINE S Ot Z92.3 PERSONAL HISTORY OF IRRADIATION [...] FO 08/30/2017 MARYSE VIVAS Ot 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 08/30/2017 MARYSE VIVAS Ot Z85.820 PERSONAL HISTORY OF MALIGNANT MELANOMA O 09/29/2017 Ot B02.9 ZOST ER WITHOUT COMPLICATIONS 09/29/2017 Ot E66.9 OBES ITY, UNSPECIFIED 09/29/2017 Ot F32.9 ERICA R DEPRESSIVE DISORDER, SINGLE EPISOD 09/29/2017 Ot F41.9 ANXI ETY DISORDER, UNSPECIFIED 09/29/2017 Ot G43.909 MN GRAINE, UNSP, NOT INTRACTABLE, WITHOUT 09/29/2017 Ot K21.9 MARINO RO-ESOPHAGEAL REFLUX DISEASE WITHOUT 09/29/2017 Ot K58.9 IRRI TABLE BOWEL SYNDROME WITHOUT DIARRHE 09/29/2017 Ot K59.00 CON STIPATION, UNSPECIFIED 09/29/2017 Ot M79.7 FIBR OMYALGIA 09/29/2017 Ot R13.10 DYS PHAGIA, UNSPECIFIED 09/29/2017 Ot R68.2 DRY MOUTH, UNSPECIFIED 09/29/2017 Ot Z68.35 BOD Y MASS INDEX (BMI) 35.0-35.9, ADULT 09/29/2017 Ot Z85.820 PE RSONAL HISTORY OF MALIGNANT MELANOMA O 09/29/2017 Ot Z87.440 PE RSONAL HISTORY OF URINARY (TRACT) INFE 09/29/2017 Ot Z90.09 ACQ UIRED ABSENCE OF OTHER PART OF HEAD A 09/29/2017 Ot Z92.21 PER SAMMY HISTORY OF ANTINEOPLASTIC CHEMO 09/29/2017 Ot Z92.3 PERS ONAL HISTORY OF IRRADIATION 10/31/2017 MARYSE VIVAS Amrita Ot B00.9 HERPESVIRAL INFECTION, UNSPECIFIED 10/31/2017 MARYSE VIVAS Amrita Ot E55.9 VITAMIN D DEFICIENCY, UNSPECIFIED 10/31/2017 MARYSE VIVAS Amrita Ot F17.210 NICOTINE DEPENDENCE, CIGARETTES, UNCOMPL 10/31/2017 MARYSE VIVAS Amrita Ot G62.9 POLYNEUROPATHY, UNSPECIFIED 10/31/2017 MARYSE VIVAS Ot R30.0 DYSURIA 10/31/2017 MARYSE VIVAS N Ot R39.15 URGENCY OF URINATION 10/31/2017 MARYSE VIVAS N Ot Z08 ENCNTR FOR FOLLOW-UP EXAM AFTER TRTMT FO 10/31/2017 MARYSE VIVAS Ot 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 10/31/2017 MARYSE VIVAS N Ot Z85.820 PERSONAL HISTORY OF MALIGNANT MELANOMA O 11/06/2017 MARYSE VIVAS N Ot B00.9 HERPESVIRAL INFECTION, UNSPECIFIED 11/06/2017 MARYSE VIVAS N Ot E55.9 VITAMIN D DEFICIENCY, UNSPECIFIED 11/06/2017 MARYSE VIVAS N Ot F17.210 NICOTINE DEPENDENCE, CIGARETTES, UNCOMPL 11/06/2017 MARYSE VIVAS N Ot G62.9 POLYNEUROPATHY, UNSPECIFIED 11/06/2017 MARYSE VIVAS N Ot R30.0 DYSURIA 11/06/2017 MARYSE VIVAS N Ot R39.15 URGENCY OF URINATION 11/06/2017 MARYSE VIVAS N Ot Z08 ENCNTR FOR FOLLOW-UP EXAM AFTER TRTMT FO 11/06/2017 MARYSE VIVAS Ot 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 SNF (CURRENT) DRUG THERAPY 11/06/2017 MARYSE VIVAS N Ot Z85.820 PERSONAL HISTORY OF MALIGNANT MELANOMA O 01/22/2018 ARLENE LAM, SADAF Mcdaniel Ot E04 .1 NONTOXIC SINGLE THYROID NODULE 01/22/2018 ARLENE LAM, SADAF Mcdaniel Ot N83.202 UNSPECIFIED OVARIAN CYST, LEFT SIDE 01/22/2018 ARLENE LAM, SADAF Mcdaniel Ot Z90.710 ACQUIRED ABSENCE OF BOTH CERVIX AND UTER 02/07/2018 ANA LAURA EDWARD SOFTWARE APPLICATIONS DESIGNER Ot C43.4 MALIGNANT MELANOMA OF SCALP AND NECK 02/07/2018 ANA LAURA EDWARD SOFTWARE APPLICATIONS DESIGNER Ot R10.2 PELVIC AND PERINEAL PAIN 02/07/2018 ANA LAURA EDWARD SOFTWARE APPLICATIONS DESIGNER Ot R91.1 SOLITARY PULMONARY NODULE 02/07/2018 ANA LAURA EDWARD SOFTWARE APPLICATIONS DESIGNER Ot Z90.49 ACQUIRED ABSENCE OF OTHER SPECIFIED PART 02/19/2018 ROSALINE FLOR DO S Ot 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 02/19/2018 MEIRNDER DO ROSALINE Chaim Ot E78.00 PURE HYPERCHOLESTEROLEMIA, UNSPECIFIED 02/19/2018 MEIRNDER DO ROSALINE S Ot F32.9 MAJOR DEPRESSIVE DISORDER, SINGLE EPISOD 02/19/2018 MEIRNDER ROSALINE Rucker Ot F41.9 ANXIETY DISORDER, UNSPECIFIED 02/19/2018 MEIRNDER DO ROSALINE Rucker Ot G43.909 MIGRAINE, UNSP, NOT INTRACTABLE, WITHOUT 02/19/2018 MEIRNDER DO ROSALINE S Ot I10 ESSENTIAL (PRIMARY) HYPERTENSION 02/19/2018 MANPREET LEACH ROSALINE S Ot J34.0 ABSCESS, FURUNCLE AND CARBUNCLE OF NOSE 02/19/2018 MARISOLER ALBER LEACHROSALINE S Ot K21.9 GASTRO-ESOPHAGEAL REFLUX DISEASE WITHOUT 02/19/2018 MEIRNDER ALBER LEACHROSALINE S Ot K58.9 IRRITABLE BOWEL SYNDROME WITHOUT DIARRHE 02/19/2018 ALBER FLOR DOQUELINE S Ot L03.211 CELLULITIS OF FACE 02/19/2018 MARISOL ALBER LEACHROSALINE S Ot M79.7 FIBROMYALGIA 02/19/2018 MARISOLER DO ROSALINE S Ot R13.10 DYSPHAGIA, UNSPECIFIED 02/19/2018 MEIRND DO ROSALINE S Ot R59.0 LOCALIZED ENLARGED LYMPH NODES 02/19/2018 MARISOL DO ROSALINE S Ot Z85.820 PERSONAL HISTORY OF MALIGNANT MELANOMA O 02/19/2018 MANPREET LEACH ROSALINE S Ot Z92.3 PERSONAL HISTORY OF IRRADIATION 02/21/2018 ROSALINE FLOR DO Ot 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 02/21/2018 ROSALINE FLOR DO Ot E78.00 PURE HYPERCHOLESTEROLEMIA, UNSPECIFIED 02/21/2018 ALBER FLOR DOQUEJOSE DE JESUS Rucker Ot F32.9 MAJOR DEPRESSIVE DISORDER, SINGLE EPISOD 02/21/2018 MANPREET LEACH ROSALINE S Ot F41.9 ANXIETY DISORDER, UNSPECIFIED 02/21/2018 MANPREET LEACH ROSALINE S Ot G43.909 MIGRAINE, UNSP, NOT INTRACTABLE, WITHOUT 02/21/2018 MEIRNDER ALBER LEACHROSALINE S Ot I10 ESSENTIAL (PRIMARY) HYPERTENSION 02/21/2018 MANPREET LEACH ROSALINE S Ot J34.0 ABSCESS, FURUNCLE AND CARBUNCLE OF NOSE 02/21/2018 MANPREET LEACH ROSALINE S Ot K21.9 GASTRO-ESOPHAGEAL REFLUX DISEASE WITHOUT 02/21/2018 MEIRNDER ROSALINE S Ot K58.9 IRRITABLE BOWEL SYNDROME WITHOUT DIARRHE 02/21/2018 MANPREET LEACH ROSALINE S Ot L03.211 CELLULITIS OF FACE 02/21/2018 MEIRAZIZA DO ROSALINE S Ot M79.7 FIBROMYALGIA 02/21/2018 MARISOL ROSALINE S Ot R13.10 DYSPHAGIA, UNSPECIFIED 02/21/2018 MANPREET LEACH ROSALINE S Ot R59.0 LOCALIZED ENLARGED LYMPH NODES 02/21/2018 MEIREUSEBIO ROSALINE S Ot Z85.820 PERSONAL HISTORY OF MALIGNANT MELANOMA O 02/21/2018 MARISOL ROSALINE S Ot Z92.3 PERSONAL HISTORY OF IRRADIATION 02/22/2018 ANA LAURA EDWARD SOFTWARE APPLICATIONS DESIGNER Ot C43.4 MALIGNANT MELANOMA OF SCALP AND NECK 02/22/2018 ANA LAURA EDWARD SOFTWARE APPLICATIONS DESIGNER Ot R10.2 PELVIC AND PERINEAL PAIN 02/22/2018 ANA LAURA EDWARD SOFTWARE APPLICATIONS DESIGNER Ot R91.1 SOLITARY PULMONARY NODULE 02/22/2018 ANA LAURA EDWARD SOFTWARE APPLICATIONS DESIGNER Ot Z90.49 ACQUIRED ABSENCE OF OTHER SPECIFIED PART 02/26/2018 MEIRAZIZA DO ROSALINE S Ot 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 02/26/2018 MEIREUSEBIO DO ROSALINE S Ot E78.00 PURE HYPERCHOLESTEROLEMIA, UNSPECIFIED 02/26/2018 MEIREUSEBIOER DO ROSALINE S Ot F32.9 MAJOR DEPRESSIVE DISORDER, SINGLE EPISOD 02/26/2018 MEIREUSEBIO ROSALINE S Ot F41.9 ANXIETY DISORDER, UNSPECIFIED 02/26/2018 MEIREUSEBIO ROSALINE S Ot G43.909 MIGRAINE, UNSP, NOT INTRACTABLE, WITHOUT 02/26/2018 MEIRNDER ROSALINE S Ot I10 ESSENTIAL (PRIMARY) HYPERTENSION 02/26/2018 MANPREET LEACH ROSALINE S Ot J34.0 ABSCESS, FURUNCLE AND CARBUNCLE OF NOSE 02/26/2018 MEIREUSEBIO ROSALINE LEACH Ot K21.9 GASTRO-ESOPHAGEAL REFLUX DISEASE WITHOUT 02/[facility] S Ot K58.9 IRRITABLE BOWEL SYNDROME WITHOUT DIARRHE 02/26/2018 [facility] ROSALINE LEACH Ot L03.211 CELLULITIS OF FACE 02/26/2018 [facility] ROSALINE LEACH Ot M79.7 FIBROMYALGIA 02/26/2018 [facility] ROSLAINE LEACH Ot R13.10 DYSPHAGIA, UNSPECIFIED 02/26/2018 [facility] R59.0 LOCALIZED ENLARGED LYMPH NODES 02/26/2018 [facility] ROSALINE LEACH Ot Z85.820 PERSONAL HISTORY OF MALIGNANT MELANOMA O 02/26/2018 [facility] ROSALINE LEACH Ot Z92.3 PERSONAL HISTORY OF IRRADIATION 02/27/2018 [facility] ROSALINE LEACH Ot 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 02/27/2018 [facility] ROSALINE LEACH Ot E78.00 PURE HYPERCHOLESTEROLEMIA, UNSPECIFIED 02/27/2018 [facility] ROSALINE LEACH Ot F32.9 MAJOR DEPRESSIVE DISORDER, SINGLE EPISOD 02/27/2018 [facility] ROSALINE S Ot F41.9 ANXIETY DISORDER, UNSPECIFIED 02/27/2018 [facility] ROSALINE LEACH Ot G43.909 MIGRAINE, UNSP, NOT INTRACTABLE, WITHOUT 02/27/2018 [facility] ROSALINE LEACH Ot I10 ESSENTIAL (PRIMARY) HYPERTENSION 02/27/2018 [facility] ROSALINE LEACH Ot J34.0 ABSCESS, FURUNCLE AND CARBUNCLE OF NOSE 02/27/2018 [facility] ROSALINE LEACH Ot K21.9 GASTRO-ESOPHAGEAL REFLUX DISEASE WITHOUT 02/27/2018 [facility] ROSALINE LEACH S Ot K58.9 IRRITABLE BOWEL SYNDROME WITHOUT DIARRHE 02/27/2018 [facility] ROSALINE LEACH Ot L03.211 CELLULITIS OF FACE 02/27/2018 [facility] ROSALINE LEACH Ot M79.7 FIBROMYALGIA 02/27/2018 [facility] ROSALINE LEACH Ot R13.10 DYSPHAGIA, UNSPECIFIED 02/27/2018 [facility] ROSALINE LEACH Ot R59.0 LOCALIZED ENLARGED LYMPH NODES 02/27/2018 [facility] ROSALINE Chaim Ot Z85.820 PERSONAL HISTORY OF MALIGNANT MELANOMA O 02/27/2018 [facility] ROSALINE S Ot Z92.3 PERSONAL HISTORY OF IRRADIATION 03/03/2018 [facility] DO ROSALINE S Ot 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 03/03/2018 [facility] ROSALINE Chaim Ot E78.00 PURE HYPERCHOLESTEROLEMIA, UNSPECIFIED 03/03/2018 [facility] ROSALINE LEACH Ot F32.9 MAJOR DEPRESSIVE DISORDER, SINGLE EPISOD 03/03/2018 [facility] ROSALINE Ot F41.9 ANXIETY DISORDER, UNSPECIFIED 03/03/2018 [facility] ROSALINE LEACH Ot G43.909 MIGRAINE, UNSP, NOT INTRACTABLE, WITHOUT 03/03/2018 [facility] ROSALINE Ot I10 ESSENTIAL (PRIMARY) HYPERTENSION 03/03/2018 [facility] ROSALINE Ot J34.0 ABSCESS, FURUNCLE AND CARBUNCLE OF NOSE 03/03/2018 [facility] ROSALINE LEACH Ot K21.9 GASTRO-ESOPHAGEAL REFLUX DISEASE WITHOUT 03/03/2018 [facility] ALBERROSALINE S Ot K58.9 IRRITABLE BOWEL SYNDROME WITHOUT DIARRHE 03/03/2018 [facility] ROSALINE LEACH Ot L03.211 CELLULITIS OF FACE 03/03/2018 [facility] ROSALINE LEACH Ot M79.7 FIBROMYALGIA 03/03/2018 [facility] ROSALINE Ot R13.10 DYSPHAGIA, UNSPECIFIED 03/03/2018 [facility] ROSALINE LEACH Ot R59.0 LOCALIZED ENLARGED LYMPH NODES 03/03/2018 [facility] ROSALINE LEACH Chaim Ot Z85.820 PERSONAL HISTORY OF MALIGNANT MELANOMA O 03/03/2018 [facility] ROSALINE S Ot Z92.3 PERSONAL HISTORY OF IRRADIATION 03/05/2018 MEIR[facility] ROSALINE LEACH Ot 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 03/05/2018 [facility] ROSALINE LEACH Ot E78.00 PURE HYPERCHOLESTEROLEMIA, UNSPECIFIED 03/05/2018 [facility] ROSALINE LEACH Ot F32.9 MAJOR DEPRESSIVE DISORDER, SINGLE EPISOD 03/05/2018 MARISOLMADHU ELHAM LEACHLINE Chaim Ot F41.9 ANXIETY DISORDER, UNSPECIFIED 03/05/2018 MEIRAZIZA ALBER LEACHROSALINE Chaim Ot G43.909 MIGRAINE, UNSP, NOT INTRACTABLE, WITHOUT 03/05/2018 [facility] DO ROSALINE S Ot I10 ESSENTIAL (PRIMARY) HYPERTENSION 03/05/2018 [facility] DO ROSALINE Chaim Ot J34.0 ABSCESS, FURUNCLE AND CARBUNCLE OF NOSE 03/05/2018 [facility] DO ROSALINE S Ot K21.9 GASTRO-ESOPHAGEAL REFLUX DISEASE WITHOUT 03/05/2018 [facility] ALBER LEACHROSALINE S Ot K58.9 IRRITABLE BOWEL SYNDROME WITHOUT DIARRHE 03/05/2018 [facility] ROSALINE LEACH S Ot L03.211 CELLULITIS OF FACE 03/05/2018 [facility] ROSALINE LEACH Ot M79.7 FIBROMYALGIA 03/05/2018 [facility] ROSALINE LEACH Chaim Ot R13.10 DYSPHAGIA, UNSPECIFIED 03/05/2018 [facility] ALBER LEACHROSALINE S Ot R59.0 LOCALIZED ENLARGED LYMPH NODES 03/05/2018 [facility] DO ROSALINE S Ot Z85.820 PERSONAL HISTORY OF MALIGNANT MELANOMA O 03/05/2018 [facility] DO ROSALINE S Ot Z92.3 PERSONAL HISTORY OF IRRADIATION 03/05/2018 ROSALINE FLOR DO Ot 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 03/05/2018 [facility] ROSALINE LEACH Ot E78.00 PURE HYPERCHOLESTEROLEMIA, UNSPECIFIED 03/05/2018 [facility] ROSALINE LEACH Ot F32.9 MAJOR DEPRESSIVE DISORDER, SINGLE EPISOD 03/05/2018 [facility] ALBER LEACHROSALINE S Ot F41.9 ANXIETY DISORDER, UNSPECIFIED 03/05/2018 [facility] ALBER LEACHROSALINE Chaim Ot G43.909 MIGRAINE, UNSP, NOT INTRACTABLE, WITHOUT 03/05/2018 [facility] ROSALINE LEACH Ot I10 ESSENTIAL (PRIMARY) HYPERTENSION 03/05/2018 [facility] ROSALINE LEACH Ot J34.0 ABSCESS, FURUNCLE AND CARBUNCLE OF NOSE 03/05/2018 [facility] ROSALINE LEACH Ot K21.9 GASTRO-ESOPHAGEAL REFLUX DISEASE WITHOUT 03/05/2018 [facility] ELHAM LEACHLINE S Ot K58.9 IRRITABLE BOWEL SYNDROME WITHOUT DIARRHE 03/05/2018 MEIR[facility]A DO ROSALINE S Ot L03.211 CELLULITIS OF FACE 03/05/2018 MEIR[facility]A ROSALINE LEACH S Ot M79.7 FIBROMYALGIA 03/05/2018 MEIRAZIZA ALBER LEACHROSALINE S Ot R13.10 DYSPHAGIA, UNSPECIFIED 03/05/2018 MEIRNDER DO ROSALINE S Ot R59.0 LOCALIZED ENLARGED LYMPH NODES 03/05/2018 MEIR[facility]ER DO ROSALINE S Ot Z85.820 PERSONAL HISTORY OF MALIGNANT MELANOMA O 03/05/2018 MARISOLER ROSALINE S Ot Z92.3 PERSONAL HISTORY OF IRRADIATION 03/07/2018 SANGEETHA STEFFANIEJE Crowe Ot B00.9 HERPESVIRAL INFECTION, UNSPECIFIED 03/07/2018 SANGEETHAMARYSE Ot E55.9 VITAMIN D DEFICIENCY, UNSPECIFIED 03/07/2018 SANGEETHAMARYSE Ot F17.210 NICOTINE DEPENDENCE, CIGARETTES, UNCOMPL 03/07/2018 SANGEETHAMARYSE Ot G62.9 POLYNEUROPATHY, UNSPECIFIED 03/07/2018 SANGEETHAMARYSE Ot R30.0 DYSURIA 03/07/2018 SANGEETHAMARYSE Ot R39.15 URGENCY OF URINATION 03/07/2018 SANGEETHAMARYSE Ot Z08 ENCNTR FOR FOLLOW-UP EXAM AFTER TRTMT FO 03/07/2018 SANGEETHA MARYSE Amrita Ot 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 SNF (CURRENT) DRUG THERAPY 03/07/2018 SANGEETHA STEFFANIEJE Crowe Ot Z85.820 PERSONAL HISTORY OF MALIGNANT MELANOMA O 03/07/2018 MEIRAZIZA DO ROSALINE S Ot 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 03/07/2018 MARISOLER ALBER LEACHROSALINE S Ot E78.00 PURE HYPERCHOLESTEROLEMIA, UNSPECIFIED 03/07/2018 MARISOLER ALBER LEACHROSALINE S Ot F32.9 MAJOR DEPRESSIVE DISORDER, SINGLE EPISOD 03/07/2018 MEIRNDER ALBER LEACHROSALINE S Ot F41.9 ANXIETY DISORDER, UNSPECIFIED 03/07/2018 MEIRNDER ALBER LEACHROSALINE S Ot G43.909 MIGRAINE, UNSP, NOT INTRACTABLE, WITHOUT 03/07/2018 MEIRNDER ALBER LEACHROSALINE S Ot I10 ESSENTIAL (PRIMARY) HYPERTENSION 03/07/2018 MARISOL ROSALINE S Ot J01.90 ACUTE SINUSITIS, UNSPECIFIED 03/07/2018 MARISOL ROSALINE S Ot J34.0 ABSCESS, FURUNCLE AND CARBUNCLE OF NOSE 03/07/2018 MANPREET LEACH ROSALINE S Ot K11.20 SIALOADENITIS, UNSPECIFIED 03/07/2018 MARISOL ROSALINE S Ot K21.9 GASTRO-ESOPHAGEAL REFLUX DISEASE WITHOUT 03/07/2018 MEIRND ROSALINE S Ot K58.9 IRRITABLE BOWEL SYNDROME WITHOUT DIARRHE 03/07/2018 MARISOL ROSALINE S Ot L03.211 CELLULITIS OF FACE 03/07/2018 MARISOL ROSALINE S Ot M79.7 FIBROMYALGIA 03/07/2018 MARISOL ROSALINE S Ot R13.10 DYSPHAGIA, UNSPECIFIED 03/07/2018 [facility] S Ot R41.82 ALTERED MENTAL STATUS, UNSPECIFIED 03/07/2018 [facility] ROSALINE S Ot R42 DIZZINESS AND GIDDINESS 03/07/2018 [facility] ROSALINE S Ot R59.0 LOCALIZED ENLARGED LYMPH NODES 03/07/2018 [facility] ROSALINE S Ot T42.1X5A ADVERSE EFFECT OF IMINOSTILBENES, INITIA 03/07/2018 MARISOL ROSALINE S Ot Z85.820 PERSONAL HISTORY OF MALIGNANT MELANOMA O 03/07/2018 MARISOL ROSALINE S Ot Z92.3 PERSONAL HISTORY OF IRRADIATION 04/01/2018 BEN CAMARGO APRN Ot M25.531 PAIN IN RIGHT WRIST 04/03/2018 MARYSE VIVAS Ot B00.9 HERPESVIRAL INFECTION, UNSPECIFIED 04/03/2018 MARYSE VIVAS Ot E55.9 VITAMIN D DEFICIENCY, UNSPECIFIED 04/03/2018 MARYSE VIVAS Ot F17.210 NICOTINE DEPENDENCE, CIGARETTES, UNCOMPL 04/03/2018 MARYSE VIVAS Ot G62.9 POLYNEUROPATHY, UNSPECIFIED 04/03/2018 MARYSE VIVAS Ot R30.0 DYSURIA 04/03/2018 MARYSE VIVAS Ot R39.15 URGENCY OF URINATION 04/03/2018 MARYSE VIVAS Ot Z08 ENCNTR FOR FOLLOW-UP EXAM AFTER TRTMT FO 04/03/2018 MARYSE VIVAS N Ot 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 04/03/2018 MARYSE VIVAS N Ot Z85.820 PERSONAL HISTORY OF MALIGNANT MELANOMA O 04/09/2018 MARYSE VIVAS N Ot B00.9 HERPESVIRAL INFECTION, UNSPECIFIED 04/09/2018 MARYSE VIVAS N Ot E55.9 VITAMIN D DEFICIENCY, UNSPECIFIED 04/09/2018 MARYSE VIVAS N Ot F17.210 NICOTINE DEPENDENCE, CIGARETTES, UNCOMPL 04/09/2018 MARYSE VIVAS Ot G62.9 POLYNEUROPATHY, UNSPECIFIED 04/09/2018 MARYSE VIVAS Ot R30.0 DYSURIA 04/09/2018 MARYSE VIVAS Ot R39.15 URGENCY OF URINATION 04/09/2018 MARYSE VIVAS Ot Z08 ENCNTR FOR FOLLOW-UP EXAM AFTER TRTMT FO 04/09/2018 MARYSE VIVAS Ot 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 SNF (CURRENT) DRUG THERAPY 04/09/2018 MARYSE VIVAS Ot Z85.820 PERSONAL HISTORY OF MALIGNANT MELANOMA O 04/17/2018 BEN CAMARGO APRN Ot M25.531 PAIN IN RIGHT WRIST 04/23/2018 BERRY DONATO SOFTWARE APPLICATIONS DESIGNER Ot M25.531 PAIN IN RIGHT WRIST 04/23/2018 BERRY DONATO SOFTWARE APPLICATIONS DESIGNER Ot M79.641 PAIN IN RIGHT HAND 05/08/2018 BERRY DONATO SOFTWARE APPLICATIONS DESIGNER Ot M25.531 PAIN IN RIGHT WRIST 05/08/2018 BERRY DONATO SOFTWARE APPLICATIONS DESIGNER Ot M79.641 PAIN IN RIGHT HAND 05/09/2018 BERRY DONATO SOFTWARE APPLICATIONS DESIGNER Ot M25.531 PAIN IN RIGHT WRIST 05/09/2018 BERRY DONATO SOFTWARE APPLICATIONS DESIGNER Ot M79.641 PAIN IN RIGHT HAND 05/09/2018 BERRY DONATOP Ot M25.531 PAIN IN RIGHT WRIST 05/09/2018 BERRY DONATOP Ot M79.641 PAIN IN RIGHT HAND 05/09/2018 BERRY DONATOP Ot M25.531 PAIN IN RIGHT WRIST 05/09/2018 BERRY DONATO Ramón SOFTWARE APPLICATIONS DESIGNER Ot M79.641 PAIN IN RIGHT HAND 05/13/2018 BERRY DONATO Ramón SOFTWARE APPLICATIONS DESIGNER Ot M25.531 PAIN IN RIGHT WRIST 05/13/2018 BERRY DONATO Ramón SOFTWARE APPLICATIONS DESIGNER Ot M79.641 PAIN IN RIGHT HAND 06/01/2018 W 599.0 URIN COLT TRACT INFECTION, SITE NOT SPECIFIED 06/01/2018 W N39.0 URIN COLT TRACT INFECTION, SITE NOT SPECIFIED 06/13/2018 Ot 723.1 CERV ICALGIA 06/13/2018 Ot V10.82 HX- MALIG SKIN MELANOMA 06/13/2018 Ot V58.69 OTH MED,LT,CURRENT USE 06/13/2018 Ot V67.1 RADI OTHERAPY FOLLOW-UP 06/13/2018 TYLOR MENDOZA MD Ot 722. 51 THORACIC DISC DEGEN 06/13/2018 TYLOR MENDOZA MD Ot 722. 52 LUMB/LUMBOSAC DISC DEGEN 06/13/2018 TYLOR MENDOZA MD Ot 723. 1 CERVICALGIA 06/13/2018 TYLOR MENDOZA MD Ot 723. 4 BRACHIAL NEURITIS NOS 06/13/2018 TYLOR MENDOZA MD Ot 786. 50 CHEST PAIN NOS 06/13/2018 TYLOR MENDOZA MD Ot V58. 69 OTH MED,LT,CURRENT USE 06/13/2018 YOMAIRA MCKENZIE DO Ot V72. 84 EXAM PRE-OPERATIVE NOS 06/13/2018 MARYSE VIVAS Ot 276.69 OTHER FLUID OVERLOAD 06/13/2018 MARYSE VIVAS Ot 723.1 CERVICALGIA 06/13/2018 MARYSE VIVAS Ot V10.82 HX- MALIG SKIN MELANOMA 06/13/2018 MARYSE VIVAS Ot V58.69 OTH MED,LT,CURRENT USE 06/13/2018 MARYSE VIVAS Ot V67.1 RADIOTHERAPY FOLLOW-UP 06/13/2018 MARYSE VIVAS Ot 172.9 MALIG MELANOMA SKIN NOS 06/13/2018 TYLOR MENDOZA MD Ot 722. 4 CERVICAL DISC DEGEN 06/13/2018 Ot 276.69 OTH ER FLUID OVERLOAD 06/13/2018 Ot 723.1 CERV ICALGIA 06/13/2018 Ot V10.82 HX- MALIG SKIN MELANOMA 06/13/2018 Ot V58.69 OTH MED,LT,CURRENT USE 06/13/2018 Ot V67.1 RADI OTHERAPY FOLLOW-UP 06/13/2018 HARINDER LAM, MAISHA L Ot 473.0 CHR MAXILLARY SINUSITIS 06/13/2018 HARINDER LAM, MAISHA Malin Ot 473.2 CHR ETHMOIDAL SINUSITIS 06/13/2018 HARINDER LAM, MAISHA L Ot 756.0 ANOMAL SKULL/FACE BONES 06/13/2018 ARLENE LAM, SADAF P Ot 473 .9 CHRONIC SINUSITIS NOS 06/13/2018 ARLENE LAM, SADAF Mcdaniel Ot 478 .0 HYPERTRPH NASAL TURBINAT 06/13/2018 ARLENE LAM, SADAF Mcdaniel Ot V72.81 [id number] CARDIOVASCULAR 06/13/2018 ARLENE LAM, SADAF Mcdaniel Ot V72.83 EXAM PRE-OPERATIVE NEC 06/13/2018 ARLENE LAM, SADAF Mcdaniel Ot V74 .8 SCREEN-BACTERIAL DIS NEC 06/13/2018 MARYSE VIVAS N Ot 457.1 OTHER LYMPHEDEMA 06/13/2018 MARYSE VIVAS N Ot 723.1 CERVICALGIA 06/13/2018 MARYSE VIVAS Ot V10.82 HX- MALIG SKIN MELANOMA 06/13/2018 MARYSE VIVAS Ot V58.69 OTH MED,LT,CURRENT USE 06/13/2018 MARYSE VIVAS N Ot V67.1 RADIOTHERAPY FOLLOW-UP 06/13/2018 MARYSE VIVAS Ot 789.00 ABDOMINAL PAIN, UNSPECIFIED SITE 06/13/2018 MARYSE VIVAS N Ot 172.9 MALIG MELANOMA SKIN NOS 06/13/2018 MARYSE VIVAS N Ot 780.96 GENERALIZED PAIN 06/13/2018 Ot 787.02 AGA SEA ALONE 06/13/2018 Ot 789.00 ABD OMINAL PAIN, UNSPECIFIED SITE 06/13/2018 Ot 793.11 POLO ITARY PULMONARY NODULE 06/13/2018 MARYSE VVIAS Ot V10.82 HX- MALIG SKIN MELANOMA 06/13/2018 MARYSE VIVAS Ot V58.69 OTH MED,LT,CURRENT USE 06/13/2018 MARYSE VIVAS N Ot V67.1 RADIOTHERAPY FOLLOW-UP 06/13/2018 MARYSE VIVAS N Ot 793.11 SOLITARY PULMONARY NODULE 06/13/2018 MARYSE VIVAS Ot 356.9 IDIO PERIPH NEURPTHY NOS 06/13/2018 MARYSE VIVAS Ot 719.49 JOINT PAIN-MULT JTS 06/13/2018 MARYSE VIVAS Ot 723.1 CERVICALGIA 06/13/2018 MARYSE VIVAS Ot V10.82 HX- MALIG SKIN MELANOMA 06/13/2018 MARYSE VIVAS Ot V58.69 OTH MED,LT,CURRENT USE 06/13/2018 MARYSE VIVAS Ot V67.1 RADIOTHERAPY FOLLOW-UP 06/13/2018 MARYES VIVAS Ot F17.210 NICOTINE DEPENDENCE, CIGARETTES, UNCOMPL 06/13/2018 MARYSE VIVAS Amrita Ot Z08 ENCNTR FOR FOLLOW-UP EXAM AFTER TRTMT FO 06/13/2018 MARYSE VIVAS Ot 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 SNF (CURRENT) DRUG THERAPY 06/13/2018 MARYSE VIVAS Ot Z85.820 PERSONAL HISTORY OF MALIGNANT MELANOMA O 06/13/2018 ELHAM FLOR DOLINE S Ot C43.9 MALIGNANT MELANOMA OF SKIN, UNSPECIFIED 06/13/2018 ROSLAINE FLOR DO S Ot M54.2 CERVICALGIA 06/13/2018 ARLENE LAM, SADAF Mcdaniel Ot E04 .1 NONTOXIC SINGLE THYROID NODULE 06/13/2018 ARLENE LAM, SADAF Mcdaniel Ot Z85.820 PERSONAL HISTORY OF MALIGNANT MELANOMA O 06/13/2018 ARLENE LAM, SADAF Mcdaniel Ot E04 .1 NONTOXIC SINGLE THYROID NODULE 06/13/2018 ELHAM FLOR DOLINE S Ot H93.11 TINNITUS, RIGHT EAR 06/13/2018 ALBER FLOR DOQUELINE S Ot I70.8 ATHEROSCLEROSIS OF OTHER ARTERIES 06/13/2018 MEIRNDALBER LEUNG DOQUELINE S Ot Z85.820 PERSONAL HISTORY OF MALIGNANT MELANOMA O 06/13/2018 ALBER FLOR DOQUELINE S Ot Z98.890 OTHER SPECIFIED POSTPROCEDURAL STATES 06/13/2018 ALBER FLOR DOQUELINE S Ot I65.01 OCCLUSION AND STENOSIS OF RIGHT VERTEBRA 06/13/2018 ALBER FLOR DOQUELINE S Ot I70.8 ATHEROSCLEROSIS OF OTHER ARTERIES 06/13/2018 ARLENE LAM, SADAF Mcdaniel Ot E04 .2 NONTOXIC MULTINODULAR GOITER 06/13/2018 ARLENE LAM, SADAF Mcdaniel Ot E04 .1 NONTOXIC SINGLE THYROID NODULE 06/13/2018 ARLENE LAM, SADAF Mcdaniel Ot N83.202 UNSPECIFIED OVARIAN CYST, LEFT SIDE 06/13/2018 ARLENE LAM, SADAF Mcdaniel Ot Z90.710 ACQUIRED ABSENCE OF BOTH CERVIX AND UTER 06/13/2018 EDWARDANA LAURA Rucker SOFTWARE APPLICATIONS DESIGNER Ot C43.4 MALIGNANT MELANOMA OF SCALP AND NECK 06/13/2018 EDWARDANA LAURA Rucker SOFTWARE APPLICATIONS DESIGNER Ot R10.2 PELVIC AND PERINEAL PAIN 06/13/2018 ANA LAURA EDWARD SOFTWARE APPLICATIONS DESIGNER Ot R91.1 SOLITARY PULMONARY NODULE 06/13/2018 EDWARDANA LAURA Rucker SOFTWARE APPLICATIONS DESIGNER Ot Z90.49 ACQUIRED ABSENCE OF OTHER SPECIFIED PART 06/13/2018 BEN CAMARGO APRN Ot M25.531 PAIN IN RIGHT WRIST 06/13/2018 MARYSE VIVAS Ot B00.9 HERPESVIRAL INFECTION, UNSPECIFIED 06/13/2018 MAYRSE VIVAS Ot E55.9 VITAMIN D DEFICIENCY, UNSPECIFIED 06/13/2018 MARYSE VIVAS Ot F17.210 NICOTINE DEPENDENCE, CIGARETTES, UNCOMPL 06/13/2018 MARYSE VIVAS Ot G62.9 POLYNEUROPATHY, UNSPECIFIED 06/13/2018 MARYSE VIVAS Ot R30.0 DYSURIA 06/13/2018 MARYSE VIVAS Ot R39.15 URGENCY OF URINATION 06/13/2018 MARYSE VIVAS Ot Z08 ENCNTR FOR FOLLOW-UP EXAM AFTER TRTMT FO 06/13/2018 MARYSE VIVAS Ot 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 SNF (CURRENT) DRUG THERAPY 06/13/2018 MARYSE VIVAS Ot Z85.820 PERSONAL HISTORY OF MALIGNANT MELANOMA O 06/13/2018 BERRY DONATO Ot M25.531 PAIN IN RIGHT WRIST 06/13/2018 BERRY DONATO Ot M79.641 PAIN IN RIGHT HAND 06/20/2018 YOMAIRA MCKENZIE DO Ot Z01.818 ENCOUNTER FOR OTHER PREPROCEDURAL EXAMIN 06/21/2018 YOMAIRA MCKENZIE DO Ot Z01.818 ENCOUNTER FOR OTHER PREPROCEDURAL EXAMIN 06/25/2018 MCKENZIE DO, YOMAIRA D Ot B00. 9 HERPESVIRAL INFECTION, UNSPECIFIED 06/25/2018 MCKENZIE DO, YOMAIRA D Ot F32. 9 MAJOR DEPRESSIVE DISORDER, SINGLE EPISOD 06/25/2018 MCKENZIE DO, YOMAIRA D Ot K21. 9 GASTRO-ESOPHAGEAL REFLUX DISEASE WITHOUT 06/25/2018 MCKENZIE DO, YOMAIRA D Ot K22. 10 ULCER OF ESOPHAGUS WITHOUT BLEEDING 06/25/2018 MCKENZIE DO, YOMAIRA D Ot K44. 9 DIAPHRAGMATIC HERNIA WITHOUT OBSTRUCTION 06/25/2018 MCKENZIE DO, YOMAIRA D Ot 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 SNF (CURRENT) DRUG THERAPY 06/25/2018 MCKENZIE DO, YOMAIRA D Ot Z87.891 PERSONAL HISTORY OF NICOTINE DEPENDENCE 06/28/2018 MCKENZIE DO, YOMAIRA D Ot B00. 9 HERPESVIRAL INFECTION, UNSPECIFIED 06/28/2018 MCKENZIE DO, YOMAIRA D Ot F32. 9 MAJOR DEPRESSIVE DISORDER, SINGLE EPISOD 06/28/2018 MCKENZIE DO, YOMAIRA D Ot K21. 9 GASTRO-ESOPHAGEAL REFLUX DISEASE WITHOUT 06/28/2018 MCKENZIE DO, YOMAIRA D Ot K22. 10 ULCER OF ESOPHAGUS WITHOUT BLEEDING 06/28/2018 MCKENZIE DO, YOMAIRA D Ot K44. 9 DIAPHRAGMATIC HERNIA WITHOUT OBSTRUCTION 06/28/2018 MCKENZIE DO, YOMAIRA D Ot 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 SNF (CURRENT) DRUG THERAPY 06/28/2018 MCKENZIE DO YOMAIRA D Ot Z87.891 PERSONAL HISTORY OF NICOTINE DEPENDENCE 08/01/2018 MARYSE VIVAS Ot B00.9 HERPESVIRAL INFECTION, UNSPECIFIED 08/01/2018 MARYSE VIVAS Ot E55.9 VITAMIN D DEFICIENCY, UNSPECIFIED 08/01/2018 MARYSE VIVAS Ot F17.210 NICOTINE DEPENDENCE, CIGARETTES, UNCOMPL 08/01/2018 MARYSE VIVAS Ot G62.9 POLYNEUROPATHY, UNSPECIFIED 08/01/2018 MARYSE VIVAS Ot Z08 ENCNTR FOR FOLLOW-UP EXAM AFTER TRTMT FO 08/01/2018 MARYSE VIVAS Ot 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 SNF (CURRENT) DRUG THERAPY 08/01/2018 MARYSE VIVAS Ot Z85.820 PERSONAL HISTORY OF MALIGNANT MELANOMA O 08/09/2018 MARYSE VIVAS Ot B00.9 HERPESVIRAL INFECTION, UNSPECIFIED 08/09/2018 SANGEETHA MARYSE N Ot E55.9 VITAMIN D DEFICIENCY, UNSPECIFIED 08/09/2018 SANGEETHA, STEFFANIEAN N Ot F17.210 NICOTINE DEPENDENCE, CIGARETTES, UNCOMPL 08/09/2018 SANGEETHA MARYSE N Ot G62.9 POLYNEUROPATHY, UNSPECIFIED 08/09/2018 SANGEETHA MARYSE N Ot Z08 ENCNTR FOR FOLLOW-UP EXAM AFTER TRTMT FO 08/09/2018 SANGEETHA MARYSE N Ot 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 08/09/2018 SANGEETHA, BOBAN N Ot Z85.820 PERSONAL HISTORY OF MALIGNANT MELANOMA O 10/14/2018 Cassius Brown W 599.0 URINARY TRACT INFECTION, SITE NOT SPECIFIED 10/14/2018 Cassius Brown W N39.0 URINARY TRACT INFECTION, SITE NOT SPECIFIED 10/16/2018 SANGEETHA, MARYSE N Ot B00.9 HERPESVIRAL INFECTION, UNSPECIFIED 10/16/2018 SANGEETHAMARYSE N Ot E55.9 VITAMIN D DEFICIENCY, UNSPECIFIED 10/16/2018 SANGEETHA, BOBAN N Ot F17.210 NICOTINE DEPENDENCE, CIGARETTES, UNCOMPL 10/16/2018 SANGEETHA BOBAN N Ot G62.9 POLYNEUROPATHY, UNSPECIFIED 10/16/2018 SANGEETHA BOBAN N Ot Z08 ENCNTR FOR FOLLOW-UP EXAM AFTER TRTMT FO 10/16/2018 SANGEETHAMARYSE N Ot 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 SNF (CURRENT) DRUG THERAPY 10/16/2018 SANGEETHA, MARYSE N Ot Z85.820 PERSONAL HISTORY OF MALIGNANT MELANOMA O 10/17/2018 SANGEETHA MARYSE N Ot B00.9 HERPESVIRAL INFECTION, UNSPECIFIED 10/17/2018 SANGEETHA, BOBAN N Ot E55.9 VITAMIN D DEFICIENCY, UNSPECIFIED 10/17/2018 SANGEETHA, BOBAN N Ot F17.210 NICOTINE DEPENDENCE, CIGARETTES, UNCOMPL 10/17/2018 SANGEETHA, BOBAN N Ot G62.9 POLYNEUROPATHY, UNSPECIFIED 10/17/2018 SANGEETHA, BOBAN N Ot Z08 ENCNTR FOR FOLLOW-UP EXAM AFTER TRTMT FO 10/17/2018 SANGEETHAMARYSE N Ot 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 SNF (CURRENT) DRUG THERAPY 10/17/2018 SANGEETHA, BOBAN N Ot Z85.820 PERSONAL HISTORY OF MALIGNANT MELANOMA O 01/21/2019 MARYSE VIVAS Ot B00.9 HERPESVIRAL INFECTION, UNSPECIFIED 01/21/2019 MARYSE VIVAS Ot E55.9 VITAMIN D DEFICIENCY, UNSPECIFIED 01/21/2019 MARYSE VIVAS Ot F17.210 NICOTINE DEPENDENCE, CIGARETTES, UNCOMPL 01/21/2019 MARYSE VIVAS Ot G62.9 POLYNEUROPATHY, UNSPECIFIED 01/21/2019 MARYSE VIVAS Ot Z08 ENCNTR FOR FOLLOW-UP EXAM AFTER TRTMT FO 01/21/2019 MARYSE VIVAS Ot 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 SNF (CURRENT) DRUG THERAPY 01/21/2019 MARYSE VIVAS Ot Z85.820 PERSONAL HISTORY OF MALIGNANT MELANOMA O 01/28/2019 MARYSE VIVAS Ot 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 01/28/2019 MARYSE VIVAS Ot E78.00 PURE HYPERCHOLESTEROLEMIA, UNSPECIFIED 01/28/2019 MARYSE VIVAS Ot F32.9 MAJOR DEPRESSIVE DISORDER, SINGLE EPISOD 01/28/2019 MARYSE VIVAS Ot F41.9 ANXIETY DISORDER, UNSPECIFIED 01/28/2019 MARYSE VIVAS Ot G43.909 MIGRAINE, UNSP, NOT INTRACTABLE, WITHOUT 01/28/2019 MARYSE VIVAS Ot I10 ESSENTIAL (PRIMARY) HYPERTENSION 01/28/2019 MARYSE VIVAS Ot J01.90 ACUTE SINUSITIS, UNSPECIFIED 01/28/2019 MARYSE VIVAS Ot K21.9 GASTRO-ESOPHAGEAL REFLUX DISEASE WITHOUT 01/28/2019 MARYSE VIVAS Ot K58.9 IRRITABLE BOWEL SYNDROME WITHOUT DIARRHE 01/28/2019 MARYSE VIVAS Ot M79.7 FIBROMYALGIA 01/28/2019 MARYSE VIVAS Ot R13.10 DYSPHAGIA, UNSPECIFIED 01/28/2019 MARYSE VIVAS Ot Z85.820 PERSONAL HISTORY OF MALIGNANT MELANOMA O 01/28/2019 MARYSE VIVAS Ot Z90.09 ACQUIRED ABSENCE OF OTHER PART OF HEAD A 01/28/2019 MARYSE VIVAS Ot Z92.21 PERSONAL HISTORY OF ANTINEOPLASTIC CHEMO 01/28/2019 MARYSE VIVAS Ot Z92.3 PERSONAL HISTORY OF IRRADIATION 01/29/2019 MARYSE VIVAS Ot B00.89 OTHER HERPESVIRAL INFECTION 01/29/2019 MARYSE VIVAS Ot C43.4 MALIGNANT MELANOMA OF SCALP AND NECK 01/29/2019 MARYSE VIVAS Ot C43.59 MALIGNANT MELANOMA OF OTHER PART OF TRUN 01/29/2019 MARYSE VIVAS Ot 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, HEMATPOETC AND 01/29/2019 MARYSE VIVAS Ot E55.9 VITAMIN D DEFICIENCY, UNSPECIFIED 01/29/2019 MARYSE VIVAS Ot I89.0 LYMPHEDEMA, NOT ELSEWHERE CLASSIFIED 01/29/2019 MARYSE VIVAS Ot M62.89 OTHER SPECIFIED DISORDERS OF MUSCLE 01/29/2019 MARYSE VIVAS Ot R25.3 FASCICULATION 01/29/2019 MARYSE VIVAS Ot 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 01/29/2019 MARYSE VIVAS Ot Z98.890 OTHER SPECIFIED POSTPROCEDURAL STATES 02/01/2019 MARYSE VIVAS Ot 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 02/01/2019 MARYSE VIVAS Ot E78.00 PURE HYPERCHOLESTEROLEMIA, UNSPECIFIED 02/01/2019 MARYSE VIVAS Ot F32.9 MAJOR DEPRESSIVE DISORDER, SINGLE EPISOD 02/01/2019 MARYSE VIVAS Ot F41.9 ANXIETY DISORDER, UNSPECIFIED 02/01/2019 MARYSE VIVAS Ot G43.909 MIGRAINE, UNSP, NOT INTRACTABLE, WITHOUT 02/01/2019 MARYSE VIVAS Ot I10 ESSENTIAL (PRIMARY) HYPERTENSION 02/01/2019 MARYSE VIVAS Ot J01.90 ACUTE SINUSITIS, UNSPECIFIED 02/01/2019 MARYSE VIVAS Ot K21.9 GASTRO-ESOPHAGEAL REFLUX DISEASE WITHOUT 02/01/2019 MARYSE VIVAS Ot K58.9 IRRITABLE BOWEL SYNDROME WITHOUT DIARRHE 02/01/2019 MARYSE VIVAS Ot M79.7 FIBROMYALGIA 02/01/2019 MARYSE VIVAS Ot R13.10 DYSPHAGIA, UNSPECIFIED 02/01/2019 MARYSE VIVAS Ot Z85.820 PERSONAL HISTORY OF MALIGNANT MELANOMA O 02/01/2019 MARYSE VIVAS Ot Z90.09 ACQUIRED ABSENCE OF OTHER PART OF HEAD A 02/01/2019 MARYSE VIVAS N Ot Z92.21 PERSONAL HISTORY OF ANTINEOPLASTIC CHEMO 02/01/2019 MARYSE VIVAS N Ot Z92.3 PERSONAL HISTORY OF IRRADIATION 02/01/2019 MARYSE VIVAS N Ot 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 02/01/2019 MARYSE VIVAS N Ot E78.00 PURE HYPERCHOLESTEROLEMIA, UNSPECIFIED 02/01/2019 SANGEETHA STEFFANIEJE N Ot F32.9 MAJOR DEPRESSIVE DISORDER, SINGLE EPISOD 02/01/2019 MARYSE VIVAS N Ot F41.9 ANXIETY DISORDER, UNSPECIFIED 02/01/2019 MARYSE VIVAS N Ot G43.909 MIGRAINE, UNSP, NOT INTRACTABLE, WITHOUT 02/01/2019 SANGEETHA, STEFFANIEJE N Ot I10 ESSENTIAL (PRIMARY) HYPERTENSION 02/01/2019 MARYSE VIVAS Amrita Ot J01.90 ACUTE SINUSITIS, UNSPECIFIED 02/01/2019 SANGEETHA, STEFFANIEJE Amrita Ot K21.9 GASTRO-ESOPHAGEAL REFLUX DISEASE WITHOUT 02/01/2019 MARYSE VIVAS N Ot K58.9 IRRITABLE BOWEL SYNDROME WITHOUT DIARRHE 02/01/2019 MARYSE VIVAS N Ot M79.7 FIBROMYALGIA 02/01/2019 MARYSE VIVAS Amrita Ot R13.10 DYSPHAGIA, UNSPECIFIED 02/01/2019 MARYSE VIVAS Amrita Ot Z85.820 PERSONAL HISTORY OF MALIGNANT MELANOMA O 02/01/2019 MARYSE VIVAS Amrita Ot Z90.09 ACQUIRED ABSENCE OF OTHER PART OF HEAD A 02/01/2019 MARYSE VIVAS Amrita Ot Z92.21 PERSONAL HISTORY OF ANTINEOPLASTIC CHEMO 02/01/2019 MARYSE VIVAS N Ot Z92.3 PERSONAL HISTORY OF IRRADIATION 02/08/2019 MARYSE VIVAS Amrita Ot 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 02/08/2019 MARYSE VIVAS N Ot E78.00 PURE HYPERCHOLESTEROLEMIA, UNSPECIFIED 02/08/2019 MARYSE VIVAS N Ot F32.9 MAJOR DEPRESSIVE DISORDER, SINGLE EPISOD 02/08/2019 MARYSE VIVAS N Ot F41.9 ANXIETY DISORDER, UNSPECIFIED 02/08/2019 SANGEETHA STEFFANIEJE N Ot G43.909 MIGRAINE, UNSP, NOT INTRACTABLE, WITHOUT 02/08/2019 SANGEETHAMARYSE N Ot I10 ESSENTIAL (PRIMARY) HYPERTENSION 02/08/2019 SANGEETHAMARYSE SANTIAGO N Ot J01.90 ACUTE SINUSITIS, UNSPECIFIED 02/08/2019 SANGEETHAMARYSE SANTIAGO N Ot K21.9 GASTRO-ESOPHAGEAL REFLUX DISEASE WITHOUT 02/08/2019 SANGEETHAMARYSE N Ot K58.9 IRRITABLE BOWEL SYNDROME WITHOUT DIARRHE 02/08/2019 MARYSE VIVAS Ot M79.7 FIBROMYALGIA 02/08/2019 MARYSE VIVAS N Ot R13.10 DYSPHAGIA, UNSPECIFIED 02/08/2019 SANGEETHAMARYSE N Ot Z85.820 PERSONAL HISTORY OF MALIGNANT MELANOMA O 02/08/2019 SANGEETHAMARYSE SANTIAGO N Ot Z90.09 ACQUIRED ABSENCE OF OTHER PART OF HEAD A 02/08/2019 MARYSE VIVAS Ot Z92.21 PERSONAL HISTORY OF ANTINEOPLASTIC CHEMO 02/08/2019 MARYSE VIVAS N Ot Z92.3 PERSONAL HISTORY OF IRRADIATION 02/15/2019 MARYSE VIVAS Ot 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 02/15/2019 MARYSE VIVAS Ot E78.00 PURE HYPERCHOLESTEROLEMIA, UNSPECIFIED 02/15/2019 MARYSE VIVAS N Ot F32.9 MAJOR DEPRESSIVE DISORDER, SINGLE EPISOD 02/15/2019 MARYSE VIVAS Ot F41.9 ANXIETY DISORDER, UNSPECIFIED 02/15/2019 MARYSE VIVAS Ot G43.909 MIGRAINE, UNSP, NOT INTRACTABLE, WITHOUT 02/15/2019 SANGEETHAMARYSE N Ot I10 ESSENTIAL (PRIMARY) HYPERTENSION 02/15/2019 MARYSE VIVAS Ot J01.90 ACUTE SINUSITIS, UNSPECIFIED 02/15/2019 MARYSE VIVAS N Ot K21.9 GASTRO-ESOPHAGEAL REFLUX DISEASE WITHOUT 02/15/2019 SANGEETHAMARYSE N Ot K58.9 IRRITABLE BOWEL SYNDROME WITHOUT DIARRHE 02/15/2019 MARYSE VIVAS Ot M79.7 FIBROMYALGIA 02/15/2019 MARYSE VIVAS N Ot R13.10 DYSPHAGIA, UNSPECIFIED 02/15/2019 SANGEETHAMARYSE SANTIAGO N Ot Z85.820 PERSONAL HISTORY OF MALIGNANT MELANOMA O 02/15/2019 MARYSE VIVAS N Ot Z90.09 ACQUIRED ABSENCE OF OTHER PART OF HEAD A 02/15/2019 MARYSE VIVAS N Ot Z92.21 PERSONAL HISTORY OF ANTINEOPLASTIC CHEMO 02/15/2019 MARYSE VIVAS Amrita Ot Z92.3 PERSONAL HISTORY OF IRRADIATION Procedures Code Description Performed By Per [place] On 57.32 CYST OSCOPY NEC 02/23/2014 70.21 VAGI NOSCOPY 02/23/2014 [id number] IN SERTION OF INFUSION DEV INTO SUP VENA 04/17/2016 [id number] IN SERTION OF INFUSION DEV INTO SUP VENA 09/18/2016 [id number] IN SERTION OF INFUSION DEVICE INTO R ATRI 07/06/2017 [id number] IN SERT OF TUNNEL VAD INTO CHEST SUBCU/FA 07/06/2017 Results Test Result Range Urinalysis - 03/02/16 16:20 Icotest N/A Negative Urine Volume Urine Volume Sufficient (10mL) Urine Yeast No Yeast present Urine-Appearance Cloudy Clear Urine-Bacteria 1+ Urine-Bilirubin Negative Negative Urine-Blood 3+ Negative Urine-Color Yellow Colorless-Lt. [place] ow Urine-Epithelial Cells 0-5/HPF Urine-Glucose Negative Negative Urine-Ketones Trace Negative Urine-Leukocytes 2+ Negative Urine-Nitrite Positive Negative Urine-Other Culture to follow Urine-pH 6.0 5-8.5 Urine-Protein 2+ Negative Urine-RBC 20-40/HPF Urine-Specific [place] >=1.030 1.000-1 .030 Urine-WBC TNTC Urobilinogen 1.0 E.U./dL 0.2-1.0 Bacterial blood culture - 04/13/16 23:35 Bacterial blood culture NG NRG Complete blood count (CBC) with automate d white blood cell (WBC) differential - 04/13/16 23:59 Blood leukocytes automated count (number/volume) 7.6 10*3/uL 4.3-11.0 Blood erythrocytes automated count (number/volume) 4.57 10*6/uL 4.35-5.85 Venous blood hemoglobin measurement (mass/volume) 14.4 g/dL 11.5-16.0 Blood hematocrit (volume fraction) 41 % 35-52 Automated erythrocyte mean corpuscular volume 90 [ foz_us] 80-99 Automated erythrocyte mean corpuscular h emoglobin (mass per erythrocyte) 32 pg 25-34 Automated erythrocyte mean corpuscular h emoglobin concentration measurement (mass/volume) 35 g/dL 32-36 Automated erythrocyte distribution width ratio 12. 4 % 10.0- 14.5 Automated blood platelet count (count/volume) 334 10*3/uL [...] 10*3 1.0-4.0 Blood monocytes automated count (number/volume) 0. 6 10*3 0.0-1.0 Automated eosinophil count 0.2 10*3/uL 0 .0-0.3 Automated blood basophil count (count/volume) 0.0 10*3/uL 0.0-0.1 Blood lactic acid measurement (moles/vol ume) - 04/14/16 00:00 Blood lactic acid measurement (moles/volume) 1.7 m mol/L 0.5- 2.0 Comprehensive metabolic panel - 04/14/16 00:00 Serum or plasma sodium measurement (moles/volume) 136 mmol/L 135-145 Serum or plasma potassium measurement (moles/volume) 4.0 mmol/L 3.6-5.0 Serum or plasma chloride measurement (moles/volume) 101 mmol/L 98-107 Carbon dioxide 21 mmol/L 21-32 Serum or plasma anion gap determination (moles/volume) 14 mmol/L 5-14 Serum or plasma urea nitrogen measurement (mass/volume ) 13 mg/dL 7-18 Serum or plasma creatinine measurement (mass/volume) 0.84 mg/dL 0.60-1.30 Serum or plasma urea nitrogen/creatinine mass ratio 15 NRG Serum or plasma creatinine measurement w ith calculation of estimated glomerular filtration rate > NRG Serum or plasma glucose measurement (mass/volume) 98 mg/dL 70-105 Serum or plasma calcium measurement (mass/volume) 9.4 mg/dL 8.5-10.1 Serum or plasma total bilirubin measurement (mass/volu me) 0.6 mg/dL 0.1-1.0 Serum or plasma alkaline phosphatase tarsha surement (enzymatic activity/volume) 75 U/L 40-136 Serum or plasma aspartate aminotransfera se measurement (enzymatic activity/volume) 25 U/L 5-34 Serum or plasma alanine aminotransferase measurement (enzymatic activity/volume) 22 U/L 0-55 Serum or plasma protein measurement (mass/volume) 7.6 g/dL 6.4-8.2 Serum or plasma albumin measurement (mass/volume) 4.4 g/dL 3.2-4.5 Serum or plasma C reactive protein measu rement (mass/volume) - 04/14/16 00:00 Serum or plasma C reactive protein measurement (mass/v olume) 0.36 mg/dL 0.00-0.50 Bacterial blood culture - 04/14/16 00:06 Bacterial blood culture [facility] Complete blood count (CBC) with automate d white blood cell (WBC) differential - 04/16/16 04:36 Blood leukocytes automated count (number/volume) 6.7 10*3/uL 4.3-11.0 Blood erythrocytes automated count (number/volume) 4.01 10*6/uL 4.35-5.85 Venous blood hemoglobin measurement (mass/volume) 12.5 g/dL 11.5-16.0 Blood hematocrit (volume fraction) 37 % 35-52 Automated erythrocyte mean corpuscular volume 92 [ foz_us] 80-99 Automated erythrocyte mean corpuscular h emoglobin (mass per erythrocyte) 31 pg 25-34 Automated erythrocyte mean corpuscular h emoglobin concentration measurement (mass/volume) 34 g/dL 32-36 Automated erythrocyte distribution width ratio 12. 1 % 10.0- 14.5 Automated blood platelet count (count/volume) 302 10*3/uL [...] 10*3 1.0-4.0 Blood monocytes automated count (number/volume) 0. 5 10*3 0.0-1.0 Automated eosinophil count 0.2 10*3/uL 0 .0-0.3 Automated blood basophil count (count/volume) 0.0 10*3/uL 0.0-0.1 Whole blood basic metabolic panel - 03/23 08/05 04:36 Serum or plasma sodium measurement (moles/volume) 138 mmol/L 135-145 Serum or plasma potassium measurement (moles/volume) 3.9 mmol/L 3.6-5.0 Serum or plasma chloride measurement (moles/volume) 109 mmol/L 98-107 Carbon dioxide 20 mmol/L 21-32 Serum or plasma anion gap determination (moles/volume) 9 mmol/L 5-14 Serum or plasma urea nitrogen measurement (mass/volume ) 10 mg/dL 7-18 Serum or plasma creatinine measurement (mass/volume) 0.73 mg/dL 0.60-1.30 Serum or plasma urea nitrogen/creatinine mass ratio 14 NRG Serum or plasma creatinine measurement w ith calculation of estimated glomerular filtration rate > NRG Serum or plasma glucose measurement (mass/volume) 83 mg/dL 70-105 Serum or plasma calcium measurement (mass/volume) 8.3 mg/dL 8.5-10.1 Complete blood count (CBC) with automate d white blood cell (WBC) differential - 04/25/16 06:00 Blood leukocytes automated count (number/volume) 7.7 10*3/uL 4.3-11.0 Blood erythrocytes automated count (number/volume) 4.27 10*6/uL 4.35-5.85 Venous blood hemoglobin measurement (mass/volume) 13.5 g/dL 11.5-16.0 Blood hematocrit (volume fraction) 39 % 35-52 Automated erythrocyte mean corpuscular volume 92 [ foz_us] 80-99 Automated erythrocyte mean corpuscular h emoglobin (mass per erythrocyte) 32 pg 25-34 Automated erythrocyte mean corpuscular h emoglobin concentration measurement (mass/volume) 34 g/dL 32-36 Automated erythrocyte distribution width ratio 12. 7 % 10.0- 14.5 Automated blood platelet count (count/volume) 227 10*3/uL [...] 10*3 1.0-4.0 Blood monocytes automated count (number/volume) 0. 6 10*3 0.0-1.0 Automated eosinophil count 0.3 10*3/uL 0 .0-0.3 Automated blood basophil count (count/volume) 0.0 10*3/uL 0.0-0.1 Whole blood basic metabolic panel - 09/04 06:00 Serum or plasma sodium measurement (moles/volume) 137 mmol/L 135-145 Serum or plasma potassium measurement (moles/volume) 4.2 mmol/L 3.6-5.0 Serum or plasma chloride measurement (moles/volume) 102 mmol/L 98-107 Carbon dioxide 22 mmol/L 21-32 Serum or plasma anion gap determination (moles/volume) 13 mmol/L 5-14 Serum or plasma urea nitrogen measurement (mass/volume ) 11 mg/dL 7-18 Serum or plasma creatinine measurement (mass/volume) 0.74 mg/dL 0.60-1.30 Serum or plasma urea nitrogen/creatinine mass ratio 15 NRG Serum or plasma creatinine measurement w ith calculation of estimated glomerular filtration rate > NRG Serum or plasma glucose measurement (mass/volume) 85 mg/dL 70-105 Serum or plasma calcium measurement (mass/volume) 9.3 mg/dL 8.5-10.1 Capillary blood glucose measurement by g lucometer (mass/volume) - 09/14/16 22:40 Capillary blood glucose measurement by glucometer (mas s/volume) 118 mg/dL 70-110 Complete blood count (CBC) with automate d white blood cell (WBC) differential - 09/15/16 04:18 Blood leukocytes automated count (number/volume) 6.4 10*3/uL 4.3-11.0 Blood erythrocytes automated count (number/volume) 4.14 10*6/uL 4.35-5.85 Venous blood hemoglobin measurement (mass/volume) 12.5 g/dL 11.5-16.0 Blood hematocrit (volume fraction) 38 % 35-52 Automated erythrocyte mean corpuscular volume 91 [ foz_us] 80-99 Automated erythrocyte mean corpuscular h emoglobin (mass per erythrocyte) 30 pg 25-34 Automated erythrocyte mean corpuscular h emoglobin concentration measurement (mass/volume) 33 g/dL 32-36 Automated erythrocyte distribution width ratio 12. 3 % 10.0- 14.5 Automated blood platelet count (count/volume) 264 10*3/uL [...] 10*3 1.0-4.0 Blood monocytes automated count (number/volume) 0. 5 10*3 0.0-1.0 Automated eosinophil count 0.2 10*3/uL 0 .0-0.3 Automated blood basophil count (count/volume) 0.0 10*3/uL 0.0-0.1 Whole blood basic metabolic panel - 08/20 10/05 04:18 Serum or plasma sodium measurement (moles/volume) 138 mmol/L 135-145 Serum or plasma potassium measurement (moles/volume) 3.9 mmol/L 3.6-5.0 Serum or plasma chloride measurement (moles/volume) 106 mmol/L 98-107 Carbon dioxide 22 mmol/L 21-32 Serum or plasma anion gap determination (moles/volume) 10 mmol/L 5-14 Serum or plasma urea nitrogen measurement (mass/volume ) 15 mg/dL 7-18 Serum or plasma creatinine measurement (mass/volume) 0.92 mg/dL 0.60-1.30 Serum or plasma urea nitrogen/creatinine mass ratio 16 NRG Serum or plasma creatinine measurement w ith calculation of estimated glomerular filtration rate > NRG Serum or plasma glucose measurement (mass/volume) 104 mg/dL 70-105 Serum or plasma calcium measurement (mass/volume) 9.2 mg/dL 8.5-10.1 Complete blood count (CBC) with automate d white blood cell (WBC) differential - 09/20/16 08:42 Blood leukocytes automated count (number/volume) 5.7 10*3/uL 4.3-11.0 Blood erythrocytes automated count (number/volume) 4.28 10*6/uL 4.35-5.85 Venous blood hemoglobin measurement (mass/volume) 13.0 g/dL 11.5-16.0 Blood hematocrit (volume fraction) 38 % 35-52 Automated erythrocyte mean corpuscular volume 90 [ foz_us] 80-99 Automated erythrocyte mean corpuscular h emoglobin (mass per erythrocyte) 30 pg 25-34 Automated erythrocyte mean corpuscular h emoglobin concentration measurement (mass/volume) 34 g/dL 32-36 Automated erythrocyte distribution width ratio 12. 3 % 10.0- 14.5 Automated blood platelet count (count/volume) 226 10*3/uL [...] 10*3 1.0-4.0 Blood monocytes automated count (number/volume) 0. 5 10*3 0.0-1.0 Automated eosinophil count 0.2 10*3/uL 0 .0-0.3 Automated blood basophil count (count/volume) 0.0 10*3/uL 0.0-0.1 Comprehensive metabolic panel - 09/20/16 08:42 Serum or plasma sodium measurement (moles/volume) 137 mmol/L 135-145 Serum or plasma potassium measurement (moles/volume) 4.0 mmol/L 3.6-5.0 Serum or plasma chloride measurement (moles/volume) 104 mmol/L 98-107 Carbon dioxide 24 mmol/L 21-32 Serum or plasma anion gap determination (moles/volume) 9 mmol/L 5-14 Serum or plasma urea nitrogen measurement (mass/volume ) 11 mg/dL 7-18 Serum or plasma creatinine measurement (mass/volume) 0.82 mg/dL 0.60-1.30 Serum or plasma urea nitrogen/creatinine mass ratio 13 NRG Serum or plasma creatinine measurement w ith calculation of estimated glomerular filtration rate > NRG Serum or plasma glucose measurement (mass/volume) 96 mg/dL 70-105 Serum or plasma calcium measurement (mass/volume) 9.2 mg/dL 8.5-10.1 Serum or plasma total bilirubin measurement (mass/volu me) 0.6 mg/dL 0.1-1.0 Serum or plasma alkaline phosphatase tarsha surement (enzymatic activity/volume) 65 U/L 40-136 Serum or plasma aspartate aminotransfera se measurement (enzymatic activity/volume) 21 U/L 5-34 Serum or plasma alanine aminotransferase measurement (enzymatic activity/volume) 31 U/L 0-55 Serum or plasma protein measurement (mass/volume) 6.5 g/dL 6.4-8.2 Serum or plasma albumin measurement (mass/volume) 3.7 g/dL 3.2-4.5 Complete blood count (CBC) with automate d white blood cell (WBC) differential - 09/27/16 05:15 Blood leukocytes automated count (number/volume) 4.5 10*3/uL 4.3-11.0 Blood erythrocytes automated count (number/volume) 3.78 10*6/uL 4.35-5.85 Venous blood hemoglobin measurement (mass/volume) 11.6 g/dL 11.5-16.0 Blood hematocrit (volume fraction) 35 % 35-52 Automated erythrocyte mean corpuscular volume 92 [ foz_us] 80-99 Automated erythrocyte mean corpuscular h emoglobin (mass per erythrocyte) 31 pg 25-34 Automated erythrocyte mean corpuscular h emoglobin concentration measurement (mass/volume) 34 g/dL 32-36 Automated erythrocyte distribution width ratio 12. 9 % 10.0- 14.5 Automated blood platelet count (count/volume) 256 10*3/uL [...] 10*3 1.0-4.0 Blood monocytes automated count (number/volume) 0. 4 10*3 0.0-1.0 Automated eosinophil count 0.2 10*3/uL 0 .0-0.3 Automated blood basophil count (count/volume) 0.0 10*3/uL 0.0-0.1 Bacterial blood culture - 10/02/16 00:40 FREE TEXT EXTERNAL SENSITIVITY REPORTED 10/03 16:00 NRG QUANTITY OF GROWTH . NRG Bacterial blood culture SEE [facility] Bacterial susceptibility panel - 7 00:40 Gentamicin susceptibility test by minimum inhibitory c oncentration <= NRG Trimethoprim/sulfamethoxazole susceptibi lity test by minimum inhibitoryconcentration <= NRG Ampicillin susceptibility test by minimum inhibitory c oncentration >= NRG Tobramycin susceptibility test by minimum inhibitory c oncentration <= NRG Cefazolin susceptibility test by minimum inhibitory co ncentration <= NRG Ceftriaxone susceptibility test by minimum inhibitory concentration <= NRG Ampicillin/sulbactam susceptibility test by minimum inhibitory concentration 4 NRG Piperacillin/tazobactam susceptibility t est by minimum inhibitory concentration <= NRG Ciprofloxacin susceptibility test by minimum inhibitor y concentration <= NRG Meropenem susceptibility test by minimum inhibitory co ncentration <= NRG Aztreonam susceptibility test by minimum inhibitory co ncentration <= NRG Extended spectrum beta lactamase (ESBL) producing bacteria susceptibility test by minimum inhibitory concentration - NRG Cefepime susceptibility test by minimum inhibitory con centration <= NRG Bacterial blood culture - 10/02/16 01:05 Bacterial blood culture NG NRG Complete blood count (CBC) with automate d white blood cell (WBC) differential - 10/03/16 06:49 Blood leukocytes automated count (number/volume) 1.9 10*3/uL 4.3-11.0 Blood erythrocytes automated count (number/volume) 3.85 10*6/uL 4.35-5.85 Venous blood hemoglobin measurement (mass/volume) 11.7 g/dL 11.5-16.0 Blood hematocrit (volume fraction) 35 % 35-52 Automated erythrocyte mean corpuscular volume 91 [ foz_us] 80-99 Automated erythrocyte mean corpuscular h emoglobin (mass per erythrocyte) 30 pg 25-34 Automated erythrocyte mean corpuscular h emoglobin concentration measurement (mass/volume) 34 g/dL 32-36 Automated erythrocyte distribution width ratio 13. 7 % 10.0- 14.5 Automated blood platelet count (count/volume) 139 10*3/uL [...] 10*3 1.0-4.0 Blood monocytes automated count (number/volume) 0. 3 10*3 0.0-1.0 Automated eosinophil count 0.0 10*3/uL 0 .0-0.3 Automated blood basophil count (count/volume) 0.0 10*3/uL 0.0-0.1 Whole blood basic metabolic panel - 09/19 07/05 06:49 Serum or plasma sodium measurement (moles/volume) 136 mmol/L 135-145 Serum or plasma potassium measurement (moles/volume) 3.6 mmol/L 3.6-5.0 Serum or plasma chloride measurement (moles/volume) 105 mmol/L 98-107 Carbon dioxide 22 mmol/L 21-32 Serum or plasma anion gap determination (moles/volume) 9 mmol/L 5-14 Serum or plasma urea nitrogen measurement (mass/volume ) 9 mg/dL 7-18 Serum or plasma creatinine measurement (mass/volume) 0.71 mg/dL 0.60-1.30 Serum or plasma urea nitrogen/creatinine mass ratio 13 NRG Serum or plasma creatinine measurement w ith calculation of estimated glomerular filtration rate > NRG Serum or plasma glucose measurement (mass/volume) 96 mg/dL 70-105 Serum or plasma calcium measurement (mass/volume) 8.4 mg/dL 8.5-10.1 Whole blood basic metabolic panel - 09/19 08/05 06:46 Serum or plasma sodium measurement (moles/volume) 140 mmol/L 135-145 Serum or plasma potassium measurement (moles/volume) 3.5 mmol/L 3.6-5.0 Serum or plasma chloride measurement (moles/volume) 108 mmol/L 98-107 Carbon dioxide 23 mmol/L 21-32 Serum or plasma anion gap determination (moles/volume) 9 mmol/L 5-14 Serum or plasma urea nitrogen measurement (mass/volume ) 10 mg/dL 7-18 Serum or plasma creatinine measurement (mass/volume) 0.72 mg/dL 0.60-1.30 Serum or plasma urea nitrogen/creatinine mass ratio 14 NRG Serum or plasma creatinine measurement w ith calculation of estimated glomerular filtration rate > NRG Serum or plasma glucose measurement (mass/volume) 98 mg/dL 70-105 Serum or plasma calcium measurement (mass/volume) 8.8 mg/dL 8.5-10.1 Complete blood count (CBC) with automate d white blood cell (WBC) differential - 10/04/16 06:46 Blood leukocytes automated count (number/volume) 2.4 10*3/uL 4.3-11.0 Blood erythrocytes automated count (number/volume) 3.81 10*6/uL 4.35-5.85 Venous blood hemoglobin measurement (mass/volume) 11.6 g/dL 11.5-16.0 Blood hematocrit (volume fraction) 35 % 35-52 Automated erythrocyte mean corpuscular volume 91 [ foz_us] 80-99 Automated erythrocyte mean corpuscular h emoglobin (mass per erythrocyte) 30 pg 25-34 Automated erythrocyte mean corpuscular h emoglobin concentration measurement (mass/volume) 34 g/dL 32-36 Automated erythrocyte distribution width ratio 13. 8 % 10.0- 14.5 Automated blood platelet count (count/volume) 167 10*3/uL [...] 10*3 1.0-4.0 Blood monocytes automated count (number/volume) 0. 4 10*3 0.0-1.0 Automated eosinophil count 0.1 10*3/uL 0 .0-0.3 Automated blood basophil count (count/volume) 0.0 10*3/uL 0.0-0.1 Complete blood count (CBC) with automate d white blood cell (WBC) differential - 10/05/16 05:50 Blood leukocytes automated count (number/volume) 2.8 10*3/uL 4.3-11.0 Blood erythrocytes automated count (number/volume) 3.82 10*6/uL 4.35-5.85 Venous blood hemoglobin measurement (mass/volume) 11.6 g/dL 11.5-16.0 Blood hematocrit (volume fraction) 35 % 35-52 Automated erythrocyte mean corpuscular volume 90 [ foz_us] 80-99 Automated erythrocyte mean corpuscular h emoglobin (mass per erythrocyte) 30 pg 25-34 Automated erythrocyte mean corpuscular h emoglobin concentration measurement (mass/volume) 34 g/dL 32-36 Automated erythrocyte distribution width ratio 13. 9 % 10.0- 14.5 Automated blood platelet count (count/volume) 213 10*3/uL [...] 10*3 1.0-4.0 Blood monocytes automated count (number/volume) 0. 2 10*3 0.0-1.0 Automated eosinophil count 0.1 10*3/uL 0 .0-0.3 Automated blood basophil count (count/volume) 0.0 10*3/uL 0.0-0.1 Complete blood count (CBC) with automate d white blood cell (WBC) differential - 10/06/16 05:24 Blood leukocytes automated count (number/volume) 4.1 10*3/uL 4.3-11.0 Blood erythrocytes automated count (number/volume) 4.02 10*6/uL 4.35-5.85 Venous blood hemoglobin measurement (mass/volume) 12.3 g/dL 11.5-16.0 Blood hematocrit (volume fraction) 36 % 35-52 Automated erythrocyte mean corpuscular volume 90 [ foz_us] 80-99 Automated erythrocyte mean corpuscular h emoglobin (mass per erythrocyte) 31 pg 25-34 Automated erythrocyte mean corpuscular h emoglobin concentration measurement (mass/volume) 34 g/dL 32-36 Automated erythrocyte distribution width ratio 13. 8 % 10.0- 14.5 Automated blood platelet count (count/volume) 240 10*3/uL [...] 10*3 1.0-4.0 Blood monocytes automated count (number/volume) 0. 4 10*3 0.0-1.0 Automated eosinophil count 0.1 10*3/uL 0 .0-0.3 Automated blood basophil count (count/volume) 0.0 10*3/uL 0.0-0.1 THYROID STIMULATING HORMONE - 01/30/17 1 1:52 THYROID STIMULATING HORMONE 1.70 u[iU]/mL 0.35-4.94 Serum or plasma thyroxine (T4) free manish urement (mass/volume) - 01/30/17 11:52 Serum or plasma thyroxine (T4) free measurement (mass/ volume) 0.95 ng/dL 0.70-1.48 [id number] - 03/29/17 08:02 Serum or plasma urea nitrogen measurement (mass/volume ) 12 mg/dL 7-18 Serum or plasma creatinine measurement (mass/volume) 0.86 mg/dL 0.60-1.30 Serum or plasma urea nitrogen/creatinine mass ratio 14 NRG Serum or plasma creatinine measurement w ith calculation of estimated glomerular filtration rate > NRG Complete blood count (CBC) with automate d white blood cell (WBC) differential - 07/03/17 18:00 Blood leukocytes automated count (number/volume) 5.1 10*3/uL 4.3-11.0 Blood erythrocytes automated count (number/volume) 4.57 10*6/uL 4.35-5.85 Venous blood hemoglobin measurement (mass/volume) 14.4 g/dL 11.5-16.0 Blood hematocrit (volume fraction) 42 % 35-52 Automated erythrocyte mean corpuscular volume 92 [ foz_us] 80-99 Automated erythrocyte mean corpuscular h emoglobin (mass per erythrocyte) 32 pg 25-34 Automated erythrocyte mean corpuscular h emoglobin concentration measurement (mass/volume) 34 g/dL 32-36 Automated erythrocyte distribution width ratio 12. 5 % 10.0- 14.5 Automated blood platelet count (count/volume) 243 10*3/uL [...] 10*3 1.0-4.0 Blood monocytes automated count (number/volume) 0. 5 10*3 0.0-1.0 Automated eosinophil count 0.2 10*3/uL 0 .0-0.3 Automated blood basophil count (count/volume) 0.0 10*3/uL 0.0-0.1 Blood lactic acid measurement (moles/vol ume) - 07/03/17 18:00 Blood lactic acid measurement [...] 5-14 Serum or plasma urea nitrogen measurement (mass/volume ) 10 mg/dL 7-18 Serum or plasma creatinine measurement (mass/volume) 0.82 mg/dL 0.60-1.30 Serum or plasma urea nitrogen/creatinine mass ratio 12 NRG Serum or plasma creatinine measurement w ith calculation of estimated glomerular filtration rate > NRG Serum or plasma glucose measurement (mass/volume) 92 mg/dL 70-105 Serum or plasma calcium measurement (mass/volume) 9.7 mg/dL 8.5-10.1 Serum or plasma total bilirubin measurement (mass/volu me) 0.4 mg/dL 0.1-1.0 Serum or plasma alkaline phosphatase tarsha surement (enzymatic activity/volume) 85 U/L 40-136 Serum or plasma aspartate aminotransfera se measurement (enzymatic activity/volume) 19 U/L 5-34 Serum or plasma alanine aminotransferase measurement (enzymatic activity/volume) 16 U/L 0-55 Serum or plasma protein measurement (mass/volume) 7.5 g/dL 6.4-8.2 Serum or plasma albumin measurement (mass/volume) 4.5 g/dL 3.2-4.5 Serum or plasma C reactive protein measu rement (mass/volume) - 07/03/17 18:00 Serum or plasma C reactive protein measurement (mass/v olume) 0.45 mg/dL 0.00-0.50 Serum or plasma carbamazepine measuremen t (mass/volume) - 07/03/17 18:00 Serum or plasma carbamazepine measurement (mass/volume ) 3.2 ug/mL 4.0-12.0 Bacterial blood culture - 07/03/17 18:00 Bacterial blood culture NG NRG Bacterial blood culture - 07/03/17 19:00 Bacterial blood culture NG NRG Complete blood count (CBC) with automate d white blood cell (WBC) differential - 07/04/17 05:41 Blood leukocytes automated count (number/volume) 4.8 10*3/uL 4.3-11.0 Blood erythrocytes automated count (number/volume) 4.24 10*6/uL 4.35-5.85 Venous blood hemoglobin measurement (mass/volume) 13.3 g/dL 11.5-16.0 Blood hematocrit (volume fraction) 39 % 35-52 Automated erythrocyte mean corpuscular volume 91 [ foz_us] 80-99 Automated erythrocyte mean corpuscular h emoglobin (mass per erythrocyte) 31 pg 25-34 Automated erythrocyte mean corpuscular h emoglobin concentration measurement (mass/volume) 34 g/dL 32-36 Automated erythrocyte distribution width ratio 12. 6 % 10.0- 14.5 Automated blood platelet count (count/volume) 235 10*3/uL [...] 10*3 1.0-4.0 Blood monocytes automated count (number/volume) 0. 5 10*3 0.0-1.0 Automated eosinophil count 0.2 10*3/uL 0 .0-0.3 Automated blood basophil count (count/volume) 0.0 10*3/uL 0.0-0.1 Comprehensive metabolic panel - 07/04/17 05:41 Serum or plasma sodium measurement (moles/volume) 138 mmol/L 135-145 Serum or plasma potassium measurement (moles/volume) 4.1 mmol/L 3.6-5.0 Serum or plasma chloride measurement (moles/volume) 108 mmol/L 98-107 Carbon dioxide 20 mmol/L 21-32 Serum or plasma anion gap determination (moles/volume) 10 mmol/L 5-14 Serum or plasma urea nitrogen measurement (mass/volume ) 15 mg/dL 7-18 Serum or plasma creatinine measurement (mass/volume) 0.76 mg/dL 0.60-1.30 Serum or plasma urea nitrogen/creatinine mass ratio 20 NRG Serum or plasma creatinine measurement w ith calculation of estimated glomerular filtration rate > NRG Serum or plasma glucose measurement (mass/volume) 96 mg/dL 70-105 Serum or plasma calcium measurement (mass/volume) 8.8 mg/dL 8.5-10.1 Serum or plasma total bilirubin measurement (mass/volu me) 0.4 mg/dL 0.1-1.0 Serum or plasma alkaline phosphatase tarsha surement (enzymatic activity/volume) 72 U/L 40-136 Serum or plasma aspartate aminotransfera se measurement (enzymatic activity/volume) 10 U/L 5-34 Serum or plasma alanine aminotransferase measurement (enzymatic activity/volume) 11 U/L 0-55 Serum or plasma protein measurement (mass/volume) 5.8 g/dL 6.4-8.2 Serum or plasma albumin measurement (mass/volume) 3.8 g/dL 3.2-4.5 Methicillin resistant Staphylococcus aur eus (MRSA) screening culture - 07/06/17 06:10 Methicillin resistant Staphylococcus aureus (MRSA) scr eening culture NEG NRG Bacterial urine culture - 08/02/17 13:35 Bacterial urine culture SEE [facility] NRG COLONY COUNT . NRG FTX;REPORTABLE 30,000 CFU/ML NR FREE TEXT ENTRY 2 SUSCEPTIBILITY REPORTED AT 0906, 08-04-17 [facility] - 08/02/17 13:35 Gentamicin susceptibility test by minimum inhibitory c oncentration <= NRG Trimethoprim/sulfamethoxazole susceptibi lity test by minimum inhibitoryconcentration <= NRG Levofloxacin susceptibility test by minimum inhibitory concentration <= NRG Ampicillin susceptibility test by minimum inhibitory c oncentration > NRG Cefazolin susceptibility test by minimum inhibitory co ncentration 2 NRG Ceftriaxone susceptibility test by minimum inhibitory concentration <= NRG Ciprofloxacin susceptibility test by minimum inhibitor y concentration <= NRG Meropenem susceptibility test by minimum inhibitory co ncentration <= NRG Nitrofurantoin susceptibility test by mi nimum inhibitory concentration <= NRG Amoxicillin and clavulanate potassium susc MALCOLM = NRG Complete blood count (CBC) with automate d white blood cell (WBC) differential - 09/22/17 06:55 Blood leukocytes automated count (number/volume) 6.1 10*3/uL 4.3-11.0 Blood erythrocytes automated count (number/volume) 3.67 10*6/uL 4.35-5.85 Venous blood hemoglobin measurement (mass/volume) 11.8 g/dL 11.5-16.0 Blood hematocrit (volume fraction) 35 % 35-52 Automated erythrocyte mean corpuscular volume 96 [ foz_us] 80-99 Automated erythrocyte mean corpuscular h emoglobin (mass per erythrocyte) 32 pg 25-34 Automated erythrocyte mean corpuscular h emoglobin concentration measurement (mass/volume) 34 g/dL 32-36 Automated erythrocyte distribution width ratio 12. 5 % 10.0- 14.5 Automated blood platelet count (count/volume) 232 10*3/uL [...] 10*3 1.0-4.0 Blood monocytes automated count (number/volume) 0. 5 10*3 0.0-1.0 Automated eosinophil count 0.2 10*3/uL 0 .0-0.3 Automated blood basophil count (count/volume) 0.0 10*3/uL 0.0-0.1 Comprehensive metabolic panel - 09/22/17 06:55 Serum or plasma sodium measurement (moles/volume) 136 mmol/L 135-145 Serum or plasma potassium measurement (moles/volume) 3.9 mmol/L 3.6-5.0 Serum or plasma chloride measurement (moles/volume) 103 mmol/L 98-107 Carbon dioxide 26 mmol/L 21-32 Serum or plasma anion gap determination (moles/volume) 7 mmol/L 5-14 Serum or plasma urea nitrogen measurement (mass/volume ) 14 mg/dL 7-18 Serum or plasma creatinine measurement (mass/volume) 0.70 mg/dL 0.60-1.30 Serum or plasma urea nitrogen/creatinine mass ratio 20 NRG Serum or plasma creatinine measurement w ith calculation of estimated glomerular filtration rate > NRG Serum or plasma glucose measurement (mass/volume) 84 mg/dL 70-105 Serum or plasma calcium measurement (mass/volume) 8.6 mg/dL 8.5-10.1 Serum or plasma total bilirubin measurement (mass/volu me) 0.3 mg/dL 0.1-1.0 Serum or plasma alkaline phosphatase tarsha surement (enzymatic activity/volume) 67 U/L 40-136 Serum or plasma aspartate aminotransfera se measurement (enzymatic activity/volume) 9 U/L 5-34 Serum or plasma alanine aminotransferase measurement (enzymatic activity/volume) 11 U/L 0-55 Serum or plasma protein measurement (mass/volume) 5.6 g/dL 6.4-8.2 Serum or plasma albumin measurement (mass/volume) 3.5 g/dL 3.2-4.5 Complete blood count (CBC) with automate d white blood cell (WBC) differential - 02/12/18 00:50 Blood leukocytes automated count (number/volume) 7.5 10*3/uL 4.3-11.0 Blood erythrocytes automated count (number/volume) 4.22 10*6/uL 4.35-5.85 Venous blood hemoglobin measurement (mass/volume) 13.1 g/dL 11.5-16.0 Blood hematocrit (volume fraction) 38 % 35-52 Automated erythrocyte mean corpuscular volume 90 [ foz_us] 80-99 Automated erythrocyte mean corpuscular h emoglobin (mass per erythrocyte) 31 pg 25-34 Automated erythrocyte mean corpuscular h emoglobin concentration measurement (mass/volume) 34 g/dL 32-36 Automated erythrocyte distribution width ratio 12. 6 % 10.0- 14.5 Automated blood platelet count (count/volume) 319 10*3/uL 130-400 Automated blood platelet mean volume measurement 8.3 [foz_us] 7.4-10.4 Automated blood neutrophils/100 leukocytes 75 % 42-75 Automated blood lymphocytes/100 leukocytes 16 % 12-44 Blood monocytes/100 leukocytes 6 % 0-12 Automated blood eosinophils/100 leukocytes 3 % 0-10 Automated blood basophils/100 leukocytes 0 % 0-10 Blood neutrophils automated count (number/volume) 5.6 10*3 1.8-7.8 Blood lymphocytes automated count (number/volume) 1.2 10*3 1.0-4.0 Blood monocytes automated count (number/volume) 0. 5 10*3 0.0-1.0 Automated eosinophil count 0.2 10*3/uL 0 .0-0.3 Automated blood basophil count (count/volume) 0.0 10*3/uL 0.0-0.1 Blood lactic acid measurement (moles/vol ume) - 02/12/18 00:50 Blood lactic acid measurement (moles/volume) 0.72 mmol/L 0.50-2.00 Comprehensive metabolic panel - 02/12/18 00:50 Serum or plasma sodium measurement (moles/volume) 137 mmol/L 135-145 Serum or plasma potassium measurement (moles/volume) 3.9 mmol/L 3.6-5.0 Serum or plasma chloride measurement (moles/volume) 104 mmol/L 98-107 Carbon dioxide 20 mmol/L 21-32 Serum or plasma anion gap determination (moles/volume) 13 mmol/L 5-14 Serum or plasma urea nitrogen measurement (mass/volume ) 15 mg/dL 7-18 Serum or plasma creatinine measurement (mass/volume) 0.86 mg/dL 0.60-1.30 Serum or plasma urea nitrogen/creatinine mass ratio 17 NRG Serum or plasma creatinine measurement w ith calculation of estimated glomerular filtration rate > NRG Serum or plasma glucose measurement (mass/volume) 105 mg/dL 70-105 Serum or plasma calcium measurement (mass/volume) 10.0 mg/dL 8.5-10.1 Serum or plasma total bilirubin measurement (mass/volu me) 0.4 mg/dL 0.1-1.0 Serum or plasma alkaline phosphatase tarsha surement (enzymatic activity/volume) 87 U/L 40-136 Serum or plasma aspartate aminotransfera se measurement (enzymatic activity/volume) 13 U/L 5-34 Serum or plasma alanine aminotransferase measurement (enzymatic activity/volume) 17 U/L 0-55 Serum or plasma protein measurement (mass/volume) 7.3 g/dL 6.4-8.2 Serum or plasma albumin measurement (mass/volume) 4.4 g/dL 3.2-4.5 CALCIUM CORRECTED 9.7 mg/dL 8.5-10.1 Bacterial blood culture - 02/12/18 00:50 Bacterial blood culture NG NRG Bacterial blood culture - 02/12/18 01:05 Bacterial blood culture NG NRG Complete blood count (CBC) with automate d white blood cell (WBC) differential - 02/12/18 05:05 Blood leukocytes automated count (number/volume) 5.5 10*3/uL 4.3-11.0 Blood erythrocytes automated count (number/volume) 3.75 10*6/uL 4.35-5.85 Venous blood hemoglobin measurement (mass/volume) 11.9 g/dL 11.5-16.0 Blood hematocrit (volume fraction) 34 % 35-52 Automated erythrocyte mean corpuscular volume 91 [ foz_us] 80-99 Automated erythrocyte mean corpuscular h emoglobin (mass per erythrocyte) 32 pg 25-34 Automated erythrocyte mean corpuscular h emoglobin concentration measurement (mass/volume) 35 g/dL 32-36 Automated erythrocyte distribution width ratio 12. 5 % 10.0- 14.5 Automated blood platelet count (count/volume) 275 10*3/uL 130-400 Automated blood platelet mean volume measurement 8.2 [foz_us] 7.4-10.4 Automated blood neutrophils/100 leukocytes 71 % 42-75 Automated blood lymphocytes/100 leukocytes 19 % 12-44 Blood monocytes/100 leukocytes 6 % 0-12 Automated blood eosinophils/100 leukocytes 4 % 0-10 Automated blood basophils/100 leukocytes 0 % 0-10 Blood neutrophils automated count (number/volume) 3.9 10*3 1.8-7.8 Blood lymphocytes automated count (number/volume) 1.0 10*3 1.0-4.0 Blood monocytes automated count (number/volume) 0. 4 10*3 0.0-1.0 Automated eosinophil count 0.2 10*3/uL 0 .0-0.3 Automated blood basophil count (count/volume) 0.0 10*3/uL 0.0-0.1 Comprehensive metabolic panel - 02/12/18 05:05 Serum or plasma sodium measurement (moles/volume) 138 mmol/L 135-145 Serum or plasma potassium measurement (moles/volume) 3.6 mmol/L 3.6-5.0 Serum or plasma chloride measurement (moles/volume) 106 mmol/L 98-107 Carbon dioxide 20 mmol/L 21-32 Serum or plasma anion gap determination (moles/volume) 12 mmol/L 5-14 Serum or plasma urea nitrogen measurement (mass/volume ) 14 mg/dL 7-18 Serum or plasma creatinine measurement (mass/volume) 0.79 mg/dL 0.60-1.30 Serum or plasma urea nitrogen/creatinine mass ratio 18 NRG Serum or plasma creatinine measurement w ith calculation of estimated glomerular filtration rate > NRG Serum or plasma glucose measurement (mass/volume) 96 mg/dL 70-105 Serum or plasma calcium measurement (mass/volume) 9.0 mg/dL 8.5-10.1 Serum or plasma total bilirubin measurement (mass/volu me) 0.3 mg/dL 0.1-1.0 Serum or plasma alkaline phosphatase tarsha surement (enzymatic activity/volume) 75 U/L 40-136 Serum or plasma aspartate aminotransfera se measurement (enzymatic activity/volume) 15 U/L 5-34 Serum or plasma alanine aminotransferase measurement (enzymatic activity/volume) 14 U/L 0-55 Serum or plasma protein measurement (mass/volume) 6.0 g/dL 6.4-8.2 Serum or plasma albumin measurement (mass/volume) 3.8 g/dL 3.2-4.5 CALCIUM CORRECTED 9.2 mg/dL 8.5-10.1 Complete blood count (CBC) with automate d white blood cell (WBC) differential - 02/20/18 05:25 Blood leukocytes automated count (number/volume) 5.3 10*3/uL 4.3-11.0 Blood erythrocytes automated count (number/volume) 3.89 10*6/uL 4.35-5.85 Venous blood hemoglobin measurement (mass/volume) 12.1 g/dL 11.5-16.0 Blood hematocrit (volume fraction) 36 % 35-52 Automated erythrocyte mean corpuscular volume 93 [ foz_us] 80-99 Automated erythrocyte mean corpuscular h emoglobin (mass per erythrocyte) 31 pg 25-34 Automated erythrocyte mean corpuscular h emoglobin concentration measurement (mass/volume) 34 g/dL 32-36 Automated erythrocyte distribution width ratio 12. 9 % 10.0- 14.5 Automated blood platelet count (count/volume) 309 10*3/uL 130-400 Automated blood platelet mean volume measurement 8.2 [foz_us] 7.4-10.4 Automated blood neutrophils/100 leukocytes 59 % 42-75 Automated blood lymphocytes/100 leukocytes 31 % 12-44 Blood monocytes/100 leukocytes 6 % 0-12 Automated blood eosinophils/100 leukocytes 4 % 0-10 Automated blood basophils/100 leukocytes 0 % 0-10 Blood neutrophils automated count (number/volume) 3.1 10*3 1.8-7.8 Blood lymphocytes automated count (number/volume) 1.6 10*3 1.0-4.0 Blood monocytes automated count (number/volume) 0. 3 10*3 0.0-1.0 Automated eosinophil count 0.2 10*3/uL 0 .0-0.3 Automated blood basophil count (count/volume) 0.0 10*3/uL 0.0-0.1 Comprehensive metabolic panel - 02/20/18 05:25 Serum or plasma sodium measurement (moles/volume) 137 mmol/L 135-145 Serum or plasma potassium measurement (moles/volume) 4.3 mmol/L 3.6-5.0 Serum or plasma chloride measurement (moles/volume) 102 mmol/L 98-107 Carbon dioxide 23 mmol/L 21-32 Serum or plasma anion gap determination (moles/volume) 12 mmol/L 5-14 Serum or plasma urea nitrogen measurement (mass/volume ) 13 mg/dL 7-18 Serum or plasma creatinine measurement (mass/volume) 0.82 mg/dL 0.60-1.30 Serum or plasma urea nitrogen/creatinine mass ratio 16 NRG Serum or plasma creatinine measurement w ith calculation of estimated glomerular filtration rate > NRG Serum or plasma glucose measurement (mass/volume) 99 mg/dL 70-105 Serum or plasma calcium measurement (mass/volume) 9.1 mg/dL 8.5-10.1 Serum or plasma total bilirubin measurement (mass/volu me) 0.4 mg/dL 0.1-1.0 Serum or plasma alkaline phosphatase tarsha surement (enzymatic activity/volume) 80 U/L 40-136 Serum or plasma aspartate aminotransfera se measurement (enzymatic activity/volume) 12 U/L 5-34 Serum or plasma alanine aminotransferase measurement (enzymatic activity/volume) 17 U/L 0-55 Serum or plasma protein measurement (mass/volume) 6.4 g/dL 6.4-8.2 Serum or plasma albumin measurement (mass/volume) 3.8 g/dL 3.2-4.5 CALCIUM CORRECTED 9.3 mg/dL 8.5-10.1 Complete blood count (CBC) with automate d white blood cell (WBC) differential - 02/26/18 05:27 Blood leukocytes automated count (number/volume) 5.8 10*3/uL 4.3-11.0 Blood erythrocytes automated count (number/volume) 4.03 10*6/uL 4.35-5.85 Venous blood hemoglobin measurement (mass/volume) 12.6 g/dL 11.5-16.0 Blood hematocrit (volume fraction) 37 % 35-52 Automated erythrocyte mean corpuscular volume 93 [ foz_us] 80-99 Automated erythrocyte mean corpuscular h emoglobin (mass per erythrocyte) 31 pg 25-34 Automated erythrocyte mean corpuscular h emoglobin concentration measurement (mass/volume) 34 g/dL 32-36 Automated erythrocyte distribution width ratio 13. 3 % 10.0- 14.5 Automated blood platelet count (count/volume) 298 10*3/uL 130-400 Automated blood platelet mean volume measurement 7.9 [foz_us] 7.4-10.4 Automated blood neutrophils/100 leukocytes 60 % 42-75 Automated blood lymphocytes/100 leukocytes 30 % 12-44 Blood monocytes/100 leukocytes 6 % 0-12 Automated blood eosinophils/100 leukocytes 4 % 0-10 Automated blood basophils/100 leukocytes 0 % 0-10 Blood neutrophils automated count (number/volume) 3.5 10*3 1.8-7.8 Blood lymphocytes automated count (number/volume) 1.7 10*3 1.0-4.0 Blood monocytes automated count (number/volume) 0. 4 10*3 0.0-1.0 Automated eosinophil count 0.2 10*3/uL 0 .0-0.3 Automated blood basophil count (count/volume) 0.0 10*3/uL 0.0-0.1 Comprehensive metabolic panel - 02/26/18 05:27 Serum or plasma sodium measurement (moles/volume) 137 mmol/L 135-145 Serum or plasma potassium measurement (moles/volume) 4.1 mmol/L 3.6-5.0 Serum or plasma chloride measurement (moles/volume) 103 mmol/L 98-107 Carbon dioxide 24 mmol/L 21-32 Serum or plasma anion gap determination (moles/volume) 10 mmol/L 5-14 Serum or plasma urea nitrogen measurement (mass/volume ) 14 mg/dL 7-18 Serum or plasma creatinine measurement (mass/volume) 0.80 mg/dL 0.60-1.30 Serum or plasma urea nitrogen/creatinine mass ratio 18 NRG Serum or plasma creatinine measurement w ith calculation of estimated glomerular filtration rate > NRG Serum or plasma glucose measurement (mass/volume) 94 mg/dL 70-105 Serum or plasma calcium measurement (mass/volume) 9.1 mg/dL 8.5-10.1 Serum or plasma total bilirubin measurement (mass/volu me) 0.2 mg/dL 0.1-1.0 Serum or plasma alkaline phosphatase tarsha surement (enzymatic activity/volume) 78 U/L 40-136 Serum or plasma aspartate aminotransfera se measurement (enzymatic activity/volume) 11 U/L 5-34 Serum or plasma alanine aminotransferase measurement (enzymatic activity/volume) 15 U/L 0-55 Serum or plasma protein measurement (mass/volume) 6.4 g/dL 6.4-8.2 Serum or plasma albumin measurement (mass/volume) 3.9 g/dL 3.2-4.5 CALCIUM CORRECTED 9.2 mg/dL 8.5-10.1 Complete blood count (CBC) with automate d white blood cell (WBC) differential - 03/05/18 13:36 Blood leukocytes automated count (number/volume) 4.6 10*3/uL 4.3-11.0 Blood erythrocytes automated count (number/volume) 3.64 10*6/uL 4.35-5.85 Venous blood hemoglobin measurement (mass/volume) 11.4 g/dL 11.5-16.0 Blood hematocrit (volume fraction) 34 % 35-52 Automated erythrocyte mean corpuscular volume 94 [ foz_us] 80-99 Automated erythrocyte mean corpuscular h emoglobin (mass per erythrocyte) 31 pg 25-34 Automated erythrocyte mean corpuscular h emoglobin concentration measurement (mass/volume) 33 g/dL 32-36 Automated erythrocyte distribution width ratio 13. 5 % 10.0- 14.5 Automated blood platelet count (count/volume) 209 10*3/uL 130-400 Automated blood platelet mean volume measurement 8.1 [foz_us] 7.4-10.4 Automated blood neutrophils/100 leukocytes 63 % 42-75 Automated blood lymphocytes/100 leukocytes 26 % 12-44 Blood monocytes/100 leukocytes 6 % 0-12 Automated blood eosinophils/100 leukocytes 4 % 0-10 Automated blood basophils/100 leukocytes 0 % 0-10 Blood neutrophils automated count (number/volume) 2.9 10*3 1.8-7.8 Blood lymphocytes automated count (number/volume) 1.2 10*3 1.0-4.0 Blood monocytes automated count (number/volume) 0. 3 10*3 0.0-1.0 Automated eosinophil count 0.2 10*3/uL 0 .0-0.3 Automated blood basophil count (count/volume) 0.0 10*3/uL 0.0-0.1 Comprehensive metabolic panel - 03/05/18 13:36 Serum or plasma sodium measurement (moles/volume) 136 mmol/L 135-145 Serum or plasma potassium measurement (moles/volume) 3.7 mmol/L 3.6-5.0 Serum or plasma chloride measurement (moles/volume) 101 mmol/L 98-107 Carbon dioxide 26 mmol/L 21-32 Serum or plasma anion gap determination (moles/volume) 9 mmol/L 5-14 Serum or plasma urea nitrogen measurement (mass/volume ) 11 mg/dL 7-18 Serum or plasma creatinine measurement (mass/volume) 0.85 mg/dL 0.60-1.30 Serum or plasma urea nitrogen/creatinine mass ratio 13 NRG Serum or plasma creatinine measurement w ith calculation of estimated glomerular filtration rate > NRG Serum or plasma glucose measurement (mass/volume) 153 mg/dL 70-105 Serum or plasma calcium measurement (mass/volume) 8.5 mg/dL 8.5-10.1 Serum or plasma total bilirubin measurement (mass/volu me) 0.2 mg/dL 0.1-1.0 Serum or plasma alkaline phosphatase tarsha surement (enzymatic activity/volume) 70 U/L 40-136 Serum or plasma aspartate aminotransfera se measurement (enzymatic activity/volume) 10 U/L 5-34 Serum or plasma alanine aminotransferase measurement (enzymatic activity/volume) 15 U/L 0-55 Serum or plasma protein measurement (mass/volume) 6.0 g/dL 6.4-8.2 Serum or plasma albumin measurement (mass/volume) 3.5 g/dL 3.2-4.5 CALCIUM CORRECTED 8.9 mg/dL 8.5-10.1 Serum or plasma carbamazepine measuremen t (mass/volume) - 03/05/18 13:36 Serum or plasma carbamazepine measurement (mass/volume ) 10.9 ug/mL 4.0-12.0 Urine Culture - 06/01/18 11:38 PRELIM CULTURE RESULTS >100,000 Gram Negativ e MALCOLM / ID to Follow CULTURE SOURCE URINE CULTURE [place] - 06/01/18 11:38 FINAL CULTURE RESULTS Escherichia coli (Isolate 1) Ampicillin/Sulbactam <=8/4 Ampicillin <=8 Amoxicillin/K Clavulanate <=8/4 Ceftriaxone <=8 Ciprofloxacin <=1 Nitrofurantoin <=32 Gentamicin <=4 Levofloxacin <=2 Trimethoprim/ Sulfamethoxazole <=2/38 Tetracycline <=4 Amikacin <=16 Aztreonam <=8 Ceftazidime <=1 Ceftazidime/K Clavulanate <=0.25 Cephalothin <=8 Cefotaxime <=2 Cefotaxime/K Clavulanate <=0.5 Cefoxitin <=8 Cefazolin <=8 Cefepime <=8 Cefuroxime <=4 Ertapenem <=1 Imipenem <=4 Meropenem <=4 Piperacillin/Tazobactam <=16 Piperacillin <=16 Tigecycline <=2 Tobramycin <=4 Urinalysis - 10/14/18 16:27 Icotest Negative Negative Urine Volume Urine Volume Sufficient (10mL) Urine-Appearance Cloudy Clear Urine-Bacteria 2+ Urine-Bilirubin 1+ Negative Urine-Blood 3+ Negative Urine-Color [place] (Color May Affect Dipstick Res ults) Colorless-Lt. Yellow Urine-Epithelial Cells 0-5/HPF Urine-Glucose 1+ Negative Urine-Ketones 1+ Negative Urine-Leukocytes 3+ Negative Urine-Nitrite Positive Negative Urine-Other Culture to follow Urine-pH 5.0 5-8.5 Urine-Protein 3+ Negative Urine-RBC 5-10/HPF Urine-Specific [place] 1.020 1.000-1 .030 Urine-WBC 50-100/HPF Urobilinogen 4.0 E.U./dL 0.2-1.0 Urine Culture - 10/14/18 16:27 PRELIM CULTURE RESULTS No Growth 24 hours FINAL CULTURE RESULTS No Growth 48 hours MEDIA PLATED Setup at 17:08 on 10/14/2018 CULTURE SOURCE CC BMP - 10/14/18 17:09 Anion Gap 16 6-14 BUN 12 mg/dL 5-25 Calcium 9.4 mg/dL 8.3-10.4 Chloride 105 mmol/L 95-114 CO2 22 mEq/L 22-33 Creat 0.96 mg/dL 0.50-1.50 eGFR 62 mL/min/1.73m2 >59 Glucose 95 mg/dL 70-110 Osm[place] 287 280-295 Potassium 4.4 mmol/L 3.5-5.3 Sodium 139 mmol/L 134-148 Complete blood count (CBC) with automate d white blood cell (WBC) differential - 01/24/19 16:04 Blood leukocytes automated count (number/volume) 6.1 10*3/uL 4.3-11.0 Blood erythrocytes automated count (number/volume) 4.38 10*6/uL 4.35-5.85 Venous blood hemoglobin measurement (mass/volume) 13.0 g/dL 11.5-16.0 Blood hematocrit (volume fraction) 39 % 35-52 Automated erythrocyte mean corpuscular volume 89 [ foz_us] 80-99 Automated erythrocyte mean corpuscular h emoglobin (mass per erythrocyte) 30 pg 25-34 Automated erythrocyte mean corpuscular h emoglobin concentration measurement (mass/volume) 34 g/dL 32-36 Automated erythrocyte distribution width ratio 12. 6 % 10.0- 14.5 Automated blood platelet count (count/volume) 318 10*3/uL 130-400 Automated blood platelet mean volume measurement 8.3 [foz_us] 7.4-10.4 Automated blood neutrophils/100 leukocytes 58 % 42-75 Automated blood lymphocytes/100 leukocytes 32 % 12-44 Blood monocytes/100 leukocytes 7 % 0-12 Automated blood eosinophils/100 leukocytes 4 % 0-10 Automated blood basophils/100 leukocytes 0 % 0-10 Blood neutrophils automated count (number/volume) 3.5 10*3 1.8-7.8 Blood lymphocytes automated count (number/volume) 1.9 10*3 1.0-4.0 Blood monocytes automated count (number/volume) 0. 4 10*3 0.0-1.0 Automated eosinophil count 0.2 10*3/uL 0 .0-0.3 Automated blood basophil count (count/volume) 0.0 10*3/uL 0.0-0.1 Comprehensive metabolic panel - 01/24/19 16:04 Serum or plasma sodium measurement (moles/volume) 137 mmol/L 135-145 Serum or plasma potassium measurement (moles/volume) 4.0 mmol/L 3.6-5.0 Serum or plasma chloride measurement (moles/volume) 104 mmol/L 98-107 Carbon dioxide 21 mmol/L 21-32 Serum or plasma anion gap determination (moles/volume) 12 mmol/L 5-14 Serum or plasma urea nitrogen measurement (mass/volume ) 10 mg/dL 7-18 Serum or plasma creatinine measurement (mass/volume) 0.80 mg/dL 0.60-1.30 Serum or plasma urea nitrogen/creatinine mass ratio 13 NRG Serum or plasma creatinine measurement w ith calculation of estimated glomerular filtration rate > NRG Serum or plasma glucose measurement (mass/volume) 93 mg/dL 70-105 Serum or plasma calcium measurement (mass/volume) 9.0 mg/dL 8.5-10.1 Serum or plasma total bilirubin measurement (mass/volu me) 0.4 mg/dL 0.1-1.0 Serum or plasma alkaline phosphatase tarsha surement (enzymatic activity/volume) 80 U/L 40-136 Serum or plasma aspartate aminotransfera se measurement (enzymatic activity/volume) 13 U/L 5-34 Serum or plasma alanine aminotransferase measurement (enzymatic activity/volume) 21 U/L 0-55 Serum or plasma protein measurement (mass/volume) 6.6 g/dL 6.4-8.2 Serum or plasma albumin measurement (mass/volume) 4.1 g/dL 3.2-4.5 CALCIUM CORRECTED 8.9 mg/dL 8.5-10.1 Serum or plasma C reactive protein measu rement (mass/volume) - 01/24/19 16:04 Serum or plasma C reactive protein measurement (mass/v olume) 1.68 mg/dL 0.00-0.50 Complete blood count (CBC) with automate d white blood cell (WBC) differential - 01/29/19 06:05 Blood leukocytes automated count (number/volume) 5.5 10*3/uL 4.3-11.0 Blood erythrocytes automated count (number/volume) 4.02 10*6/uL 4.35-5.85 Venous blood hemoglobin measurement (mass/volume) 12.2 g/dL 11.5-16.0 Blood hematocrit (volume fraction) 36 % 35-52 Automated erythrocyte mean corpuscular volume 89 [ foz_us] 80-99 Automated erythrocyte mean corpuscular h emoglobin (mass per erythrocyte) 30 pg 25-34 Automated erythrocyte mean corpuscular h emoglobin concentration measurement (mass/volume) 34 g/dL 32-36 Automated erythrocyte distribution width ratio 12. 3 % 10.0- 14.5 Automated blood platelet count (count/volume) 274 10*3/uL 130-400 Automated blood platelet mean volume measurement 8.1 [foz_us] 7.4-10.4 Automated blood neutrophils/100 leukocytes 52 % 42-75 Automated blood lymphocytes/100 leukocytes 35 % 12-44 Blood monocytes/100 leukocytes 7 % 0-12 Automated blood eosinophils/100 leukocytes 5 % 0-10 Automated blood basophils/100 leukocytes 0 % 0-10 Blood neutrophils automated count (number/volume) 2.9 10*3 1.8-7.8 Blood lymphocytes automated count (number/volume) 1.9 10*3 1.0-4.0 Blood monocytes automated count (number/volume) 0. 4 10*3 0.0-1.0 Automated eosinophil count 0.3 10*3/uL 0 .0-0.3 Automated blood basophil count (count/volume) 0.0 10*3/uL 0.0-0.1 Whole blood basic metabolic panel - 01/19 03/09 06:05 Serum or plasma sodium measurement (moles/volume) 139 mmol/L 135-145 Serum or plasma potassium measurement (moles/volume) 3.8 mmol/L 3.6-5.0 Serum or plasma chloride measurement (moles/volume) 105 mmol/L 98-107 Carbon dioxide 22 mmol/L 21-32 Serum or plasma anion gap determination (moles/volume) 12 mmol/L 5-14 Serum or plasma urea nitrogen measurement (mass/volume ) 8 mg/dL 7-18 Serum or plasma creatinine measurement (mass/volume) 0.93 mg/dL 0.60-1.30 Serum or plasma urea nitrogen/creatinine mass ratio 9 NRG Serum or plasma creatinine measurement w ith calculation of estimated glomerular filtration rate > NRG Serum or plasma glucose measurement (mass/volume) 140 mg/dL 70-105 Serum or plasma calcium measurement (mass/volume) 8.5 mg/dL 8.5-10.1 Complete blood count (CBC) with automate d white blood cell (WBC) differential - 02/01/19 05:20 Blood leukocytes automated count (number/volume) 5.5 10*3/uL 4.3-11.0 Blood erythrocytes automated count (number/volume) 3.93 10*6/uL 4.35-5.85 Venous blood hemoglobin measurement (mass/volume) 11.8 g/dL 11.5-16.0 Blood hematocrit (volume fraction) 36 % 35-52 Automated erythrocyte mean corpuscular volume 92 [ foz_us] 80-99 Automated erythrocyte mean corpuscular h emoglobin (mass per erythrocyte) 30 pg 25-34 Automated erythrocyte mean corpuscular h emoglobin concentration measurement (mass/volume) 33 g/dL 32-36 Automated erythrocyte distribution width ratio 12. 5 % 10.0- 14.5 Automated blood platelet count (count/volume) 228 10*3/uL 130-400 Automated blood platelet mean volume measurement 8.6 [foz_us] 7.4-10.4 Automated blood neutrophils/100 leukocytes 55 % 42-75 Automated blood lymphocytes/100 leukocytes 30 % 12-44 Blood monocytes/100 leukocytes 8 % 0-12 Automated blood eosinophils/100 leukocytes 7 % 0-10 Automated blood basophils/100 leukocytes 0 % 0-10 Blood neutrophils automated count (number/volume) 3.1 10*3 1.8-7.8 Blood lymphocytes automated count (number/volume) 1.7 10*3 1.0-4.0 Blood monocytes automated count (number/volume) 0. 5 10*3 0.0-1.0 Automated eosinophil count 0.4 10*3/uL 0 .0-0.3 Automated blood basophil count (count/volume) 0.0 10*3/uL 0.0-0.1 Whole blood basic metabolic panel - 01/19 06/07 05:20 Serum or plasma sodium measurement (moles/volume) 138 mmol/L 135-145 Serum or plasma potassium measurement (moles/volume) 4.0 mmol/L 3.6-5.0 Serum or plasma chloride measurement (moles/volume) 102 mmol/L 98-107 Carbon dioxide 24 mmol/L 21-32 Serum or plasma anion gap determination (moles/volume) 12 mmol/L 5-14 Serum or plasma urea nitrogen measurement (mass/volume ) 5 mg/dL 7-18 Serum or plasma creatinine measurement (mass/volume) 0.84 mg/dL 0.60-1.30 Serum or plasma urea nitrogen/creatinine mass ratio 6 NRG Serum or plasma creatinine measurement w ith calculation of estimated glomerular filtration rate > NRG Serum or plasma glucose measurement (mass/volume) 147 mg/dL 70-105 Serum or plasma calcium measurement (mass/volume) 8.7 mg/dL 8.5-10.1 Bacterial throat culture - 02/04/19 16:1 5 Bacterial throat culture NBS NRG Complete blood count (CBC) with automate d white blood cell (WBC) differential - 02/05/19 06:30 Blood leukocytes automated count (number/volume) 5.4 10*3/uL 4.3-11.0 Blood erythrocytes automated count (number/volume) 3.88 10*6/uL 4.35-5.85 Venous blood hemoglobin measurement (mass/volume) 11.7 g/dL 11.5-16.0 Blood hematocrit (volume fraction) 36 % 35-52 Automated erythrocyte mean corpuscular volume 92 [ foz_us] 80-99 Automated erythrocyte mean corpuscular h emoglobin (mass per erythrocyte) 30 pg 25-34 Automated erythrocyte mean corpuscular h emoglobin concentration measurement (mass/volume) 33 g/dL 32-36 Automated erythrocyte distribution width ratio 12. 6 % 10.0- 14.5 Automated blood platelet count (count/volume) 232 10*3/uL 130-400 Automated blood platelet mean volume measurement 8.6 [foz_us] 7.4-10.4 Automated blood neutrophils/100 leukocytes 57 % 42-75 Automated blood lymphocytes/100 leukocytes 29 % 12-44 Blood monocytes/100 leukocytes 8 % 0-12 Automated blood eosinophils/100 leukocytes 5 % 0-10 Automated blood basophils/100 leukocytes 0 % 0-10 Blood neutrophils automated count (number/volume) 3.1 10*3 1.8-7.8 Blood lymphocytes automated count (number/volume) 1.6 10*3 1.0-4.0 Blood monocytes automated count (number/volume) 0. 4 10*3 0.0-1.0 Automated eosinophil count 0.3 10*3/uL 0 .0-0.3 Automated blood basophil count (count/volume) 0.0 10*3/uL 0.0-0.1 Comprehensive metabolic panel - 02/05/19 06:30 Serum or plasma sodium measurement (moles/volume) 139 mmol/L 135-145 Serum or plasma potassium measurement (moles/volume) 4.4 mmol/L 3.6-5.0 Serum or plasma chloride measurement (moles/volume) 103 mmol/L 98-107 Carbon dioxide 27 mmol/L 21-32 Serum or plasma anion gap determination (moles/volume) 9 mmol/L 5-14 Serum or plasma urea nitrogen measurement (mass/volume ) 6 mg/dL 7-18 Serum or plasma creatinine measurement (mass/volume) 0.80 mg/dL 0.60-1.30 Serum or plasma urea nitrogen/creatinine mass ratio 8 NRG Serum or plasma creatinine measurement w ith calculation of estimated glomerular filtration rate > NRG Serum or plasma glucose measurement (mass/volume) 108 mg/dL 70-105 Serum or plasma calcium measurement (mass/volume) 9.1 mg/dL 8.5-10.1 Serum or plasma total bilirubin measurement (mass/volu me) 0.6 mg/dL 0.1-1.0 Serum or plasma alkaline phosphatase tarsha surement (enzymatic activity/volume) 73 U/L 40-136 Serum or plasma aspartate aminotransfera se measurement (enzymatic activity/volume) 66 U/L 5-34 Serum or plasma alanine aminotransferase measurement (enzymatic activity/volume) 91 U/L 0-55 Serum or plasma protein measurement (mass/volume) 6.1 g/dL 6.4-8.2 Serum or plasma albumin measurement (mass/volume) 3.6 g/dL 3.2-4.5 CALCIUM CORRECTED 9.4 mg/dL 8.5-10.1 Automated blood complete blood count (he mogram) panel - 02/07/19 04:30 Blood leukocytes automated count (number/volume) 4.9 10*3/uL 4.3-11.0 Blood erythrocytes automated count (number/volume) 3.88 10*6/uL 4.35-5.85 Venous blood hemoglobin measurement (mass/volume) 11.7 g/dL 11.5-16.0 Blood hematocrit (volume fraction) 36 % 35-52 Automated erythrocyte mean corpuscular volume 92 [ foz_us] 80-99 Automated erythrocyte mean corpuscular h emoglobin (mass per erythrocyte) 30 pg 25-34 Automated erythrocyte mean corpuscular h emoglobin concentration measurement (mass/volume) 33 g/dL 32-36 Automated erythrocyte distribution width ratio 12. 8 % 10.0- 14.5 Automated blood platelet count (count/volume) 249 10*3/uL 130-400 Automated blood platelet mean volume measurement 8.6 [foz_us] 7.4-10.4 Comprehensive metabolic panel - 02/07/19 04:30 Serum or plasma sodium measurement (moles/volume) 138 mmol/L 135-145 Serum or plasma potassium measurement (moles/volume) 4.0 mmol/L 3.6-5.0 Serum or plasma chloride measurement (moles/volume) 102 mmol/L 98-107 Carbon dioxide 25 mmol/L 21-32 Serum or plasma anion gap determination (moles/volume) 11 mmol/L 5-14 Serum or plasma urea nitrogen measurement (mass/volume ) 6 mg/dL 7-18 Serum or plasma creatinine measurement (mass/volume) 0.79 mg/dL 0.60-1.30 Serum or plasma urea nitrogen/creatinine mass ratio 8 NRG Serum or plasma creatinine measurement w ith calculation of estimated glomerular filtration rate > NRG Serum or plasma glucose measurement (mass/volume) 107 mg/dL 70-105 Serum or plasma calcium measurement (mass/volume) 9.1 mg/dL 8.5-10.1 Serum or plasma total bilirubin measurement (mass/volu me) 0.4 mg/dL 0.1-1.0 Serum or plasma alkaline phosphatase tarsha surement (enzymatic activity/volume) 73 U/L 40-136 Serum or plasma aspartate aminotransfera se measurement (enzymatic activity/volume) 52 U/L 5-34 Serum or plasma alanine aminotransferase measurement (enzymatic activity/volume) 83 U/L 0-55 Serum or plasma protein measurement (mass/volume) 6.1 g/dL 6.4-8.2 Serum or plasma albumin measurement (mass/volume) 3.7 g/dL 3.2-4.5 CALCIUM CORRECTED 9.3 mg/dL 8.5-10.1 Complete blood count (CBC) with automate d white blood cell (WBC) differential - 02/09/19 11:30 Blood leukocytes automated count (number/volume) 4.7 10*3/uL 4.3-11.0 Blood erythrocytes automated count (number/volume) 3.78 10*6/uL 4.35-5.85 Venous blood hemoglobin measurement (mass/volume) 11.3 g/dL 11.5-16.0 Blood hematocrit (volume fraction) 35 % 35-52 Automated erythrocyte mean corpuscular volume 93 [ foz_us] 80-99 Automated erythrocyte mean corpuscular h emoglobin (mass per erythrocyte) 30 pg 25-34 Automated erythrocyte mean corpuscular h emoglobin concentration measurement (mass/volume) 32 g/dL 32-36 Automated erythrocyte distribution width ratio 13. 2 % 10.0- 14.5 Automated blood platelet count (count/volume) 250 10*3/uL 130-400 Automated blood platelet mean volume measurement 8.8 [foz_us] 7.4-10.4 Automated blood neutrophils/100 leukocytes 47 % 42-75 Automated blood lymphocytes/100 leukocytes 36 % 12-44 Blood monocytes/100 leukocytes 10 % 0-12 Automated blood eosinophils/100 leukocytes 7 % 0-10 Automated blood basophils/100 leukocytes 0 % 0-10 Blood neutrophils automated count (number/volume) 2.2 10*3 1.8-7.8 Blood lymphocytes automated count (number/volume) 1.7 10*3 1.0-4.0 Blood monocytes automated count (number/volume) 0. 5 10*3 0.0-1.0 Automated eosinophil count 0.3 10*3/uL 0 .0-0.3 Automated blood basophil count (count/volume) 0.0 10*3/uL 0.0-0.1 Comprehensive metabolic panel - 02/10/19 05:42 Serum or plasma sodium measurement (moles/volume) 137 mmol/L 135-145 Serum or plasma potassium measurement (moles/volume) 4.2 mmol/L 3.6-5.0 Serum or plasma chloride measurement (moles/volume) 103 mmol/L 98-107 Carbon dioxide 24 mmol/L 21-32 Serum or plasma anion gap determination (moles/volume) 10 mmol/L 5-14 Serum or plasma urea nitrogen measurement (mass/volume ) 6 mg/dL 7-18 Serum or plasma creatinine measurement (mass/volume) 0.87 mg/dL 0.60-1.30 Serum or plasma urea nitrogen/creatinine mass ratio 7 NRG Serum or plasma creatinine measurement w ith calculation of estimated glomerular filtration rate > NRG Serum or plasma glucose measurement (mass/volume) 101 mg/dL 70-105 Serum or plasma calcium measurement (mass/volume) 9.0 mg/dL 8.5-10.1 Serum or plasma total bilirubin measurement (mass/volu me) 0.4 mg/dL 0.1-1.0 Serum or plasma alkaline phosphatase tarsha surement (enzymatic activity/volume) 67 U/L 40-136 Serum or plasma aspartate aminotransfera se measurement (enzymatic activity/volume) 67 U/L 5-34 Serum or plasma alanine aminotransferase measurement (enzymatic activity/volume) 88 U/L 0-55 Serum or plasma protein measurement (mass/volume) 6.2 g/dL 6.4-8.2 Serum or plasma albumin measurement (mass/volume) 3.6 g/dL 3.2-4.5 CALCIUM CORRECTED 9.3 mg/dL 8.5-10.1 Serum or plasma creatine kinase measurem ent (enzymatic activity/volume) - 02/10/19 05:42 Serum or plasma creatine kinase measurem ent (enzymatic activity/volume) 59 U/L 29-168 Comprehensive metabolic panel - 02/12/19 03:54 Serum or plasma sodium measurement (moles/volume) 138 mmol/L 135-145 Serum or plasma potassium measurement (moles/volume) 4.0 mmol/L 3.6-5.0 Serum or plasma chloride measurement (moles/volume) 103 mmol/L 98-107 Carbon dioxide 24 mmol/L 21-32 Serum or plasma anion gap determination (moles/volume) 11 mmol/L 5-14 Serum or plasma urea nitrogen measurement (mass/volume ) 7 mg/dL 7-18 Serum or plasma creatinine measurement (mass/volume) 0.84 mg/dL 0.60-1.30 Serum or plasma urea nitrogen/creatinine mass ratio 8 NRG Serum or plasma creatinine measurement w ith calculation of estimated glomerular filtration rate > NRG Serum or plasma glucose measurement (mass/volume) 127 mg/dL 70-105 Serum or plasma calcium measurement (mass/volume) 9.1 mg/dL 8.5-10.1 Serum or plasma total bilirubin measurement (mass/volu me) 0.5 mg/dL 0.1-1.0 Serum or plasma alkaline phosphatase tarsha surement (enzymatic activity/volume) 72 U/L 40-136 Serum or plasma aspartate aminotransfera se measurement (enzymatic activity/volume) 44 U/L 5-34 Serum or plasma alanine aminotransferase measurement (enzymatic activity/volume) 66 U/L 0-55 Serum or plasma protein measurement (mass/volume) 6.0 g/dL 6.4-8.2 Serum or plasma albumin measurement (mass/volume) 3.6 g/dL 3.2-4.5 CALCIUM CORRECTED 9.4 mg/dL 8.5-10.1 Complete blood count (CBC) with automate d white blood cell (WBC) differential - 02/15/19 07:11 Blood leukocytes automated count (number/volume) 4.6 10*3/uL 4.3-11.0 Blood erythrocytes automated count (number/volume) 3.91 10*6/uL 4.35-5.85 Venous blood hemoglobin measurement (mass/volume) 12.0 g/dL 11.5-16.0 Blood hematocrit (volume fraction) 36 % 35-52 Automated erythrocyte mean corpuscular volume 93 [ foz_us] 80-99 Automated erythrocyte mean corpuscular h emoglobin (mass per erythrocyte) 31 pg 25-34 Automated erythrocyte mean corpuscular h emoglobin concentration measurement (mass/volume) 33 g/dL 32-36 Automated erythrocyte distribution width ratio 13. 4 % 10.0- 14.5 Automated blood platelet count (count/volume) 227 10*3/uL 130-400 Automated blood platelet mean volume measurement 8.7 [foz_us] 7.4-10.4 Automated blood neutrophils/100 leukocytes 46 % 42-75 Automated blood lymphocytes/100 leukocytes 37 % 12-44 Blood monocytes/100 leukocytes 11 % 0-12 Automated blood eosinophils/100 leukocytes 6 % 0-10 Automated blood basophils/100 leukocytes 0 % 0-10 Blood neutrophils automated count (number/volume) 2.1 10*3 1.8-7.8 Blood lymphocytes automated count (number/volume) 1.7 10*3 1.0-4.0 Blood monocytes automated count (number/volume) 0. 5 10*3 0.0-1.0 Automated eosinophil count 0.3 10*3/uL 0 .0-0.3 Automated blood basophil count (count/volume) 0.0 10*3/uL 0.0-0.1 Comprehensive metabolic panel - 02/15/19 07:11 Serum or plasma sodium measurement (moles/volume) 139 mmol/L 135-145 Serum or plasma potassium measurement (moles/volume) 4.2 mmol/L 3.6-5.0 Serum or plasma chloride measurement (moles/volume) 104 mmol/L 98-107 Carbon dioxide 25 mmol/L 21-32 Serum or plasma anion gap determination (moles/volume) 10 mmol/L 5-14 Serum or plasma urea nitrogen measurement (mass/volume ) 7 mg/dL 7-18 Serum or plasma creatinine measurement (mass/volume) 0.85 mg/dL 0.60-1.30 Serum or plasma urea nitrogen/creatinine mass ratio 8 NRG Serum or plasma creatinine measurement w ith calculation of estimated glomerular filtration rate > NRG Serum or plasma glucose measurement (mass/volume) 94 mg/dL 70-105 Serum or plasma calcium measurement (mass/volume) 9.0 mg/dL 8.5-10.1 Serum or plasma total bilirubin measurement (mass/volu me) 0.3 mg/dL 0.1-1.0 Serum or plasma alkaline phosphatase tarsha surement (enzymatic activity/volume) 65 U/L 40-136 Serum or plasma aspartate aminotransfera se measurement (enzymatic activity/volume) 44 U/L 5-34 Serum or plasma alanine aminotransferase measurement (enzymatic activity/volume) 62 U/L 0-55 Serum or plasma protein measurement (mass/volume) 6.2 g/dL 6.4-8.2 Serum or plasma albumin measurement (mass/volume) 3.6 g/dL 3.2-4.5 CALCIUM CORRECTED 9.3 mg/dL 8.5-10.1 Encounters ACCT No. Visit Date/Time Discharge Status Pt. Type Provider Facility Loc./Unit Complaint [id number] 10/14/2018 16:13:00 10/14/2018 19:10: 00 DIS Outpatient [facility] [place] [id number] 06/01/2018 13:44:00 06/01/2018 23:59: 00 DIS Outpatient Eulalia Pillai [id number] 03/02/2016 15:42:00 03/02/2016 23:59: 00 DIS Outpatient Rosaline Flor [id number] 10/14/2018 17:15:05 Document Registration [id number] 06/01/2018 11:26:00 Document Registration 10/201601/14/2019 14:20:14 01/14/2019 23:59 :59 CLS Outpatient Rosaline Flor [id number] 11/19/2015 10:17:34 11/19/2015 23:59:5 9 CLS Outpatient [id number] 01/24/2019 10:41:00 23:59:59 CLS Preadmit SADAF JACOBS MD Via [facility] RAD LT THYROID NODULE [id number] 01/14/2019 10:40:00 23:59:59 CLS Outpatient MARYSE VIVAS [facility] ONC [id number] 10/09/2018 12:48:00 00:01:00 DIS Outpatient MARYSE VIVAS V [facility] ONC [id number] 10/14/2018 10:00:00 23:59:59 CLS Preadmit YOMAIRA MCKENZIE DO [facility] RAD DYSPHASIA [id number] 06/25/2018 09:29:00 23:59:59 CLS Outpatient MCKENZIE YOMAIRA LEACH [facility] ENDO DYSPHAGIA/GERD [id number] 06/20/2018 09:12:00 16:03:00 DIS Outpatient YOMAIRA MCKENZIE DO Via [facility] PREOP EGD [id number] 04/23/2018 16:03:00 23:59:59 CLS Outpatient BERRY DONATO [facility] RAD FS [id number] [id number] [id number] 01/31/2018 12:36:00 00:01:00 DIS Outpatient MARYSE VIVAS V ia [facility] ONC [id number] 04/01/2018 16:10:00 019 23:59:59 CLS Outpatient BEN CAMARGO [employer]ING [employer]ENT [facility] RAD PAIN IN RIGHT W RIST [id number] 02/12/2018 01:32:00 019 15:55:00 DIS Inpatient ORENDROSALINE LEUNG DO S Via [facility] 4TH RECURRENT H ZOS TER R FACE;FAILURE OF OUTPT THERAPY [id number] 02/06/2018 12:48:00 018 23:59:59 CLS Outpatient ANA LAURA EDWARD [employer] DESIGNER [facility] RAD MALIGNANT MELAN NICOLETTE [id number] 01/21/2018 14:21:00 018 23:59:59 CLS Outpatient SADAF JACOBS MD [facility] RAD LT THYROID NODULE [id number] 01/18/2018 11:53:00 018 23:59:59 CLS Preadmit BEN CAMARGO [employer]ING [employer]ENT Via [facility] RAD LLQ PAIN/PELVIS [id number] 08/02/2017 12:55:00 018 00:01:00 DIS Outpatient MARYSE VIVAS [facility] ONC [id number] 07/03/2017 19:24:00 018 09:00:00 DIS Inpatient ROSALINE FLOR DO Via [facility] 4TH RECURRENT HERPE S ZOSTER INFECTION R FACE [id number] 04/23/2017 11:35:00 018 23:59:59 CLS Outpatient SADAF JACOBS MD [facility] RAD THYROID NODULES [id number] 04/04/2017 10:59:00 018 23:59:59 CLS Outpatient ROSALINE FLOR DO [facility] RAD RIGHT SUBCLAVIA N/VERTEBRAL ARTERY STENOSIS [id number] 01/04/2017 10:53:00 018 00:01:00 DIS Outpatient MARYSE VIVAS [facility] ONC [id number] 03/29/2017 07:47:00 02/08/2 018 23:59:59 CLS Outpatient ROSALINE FLOR DO [facility] RAD H93.11 [id number] 01/30/2017 11:35:00 017 23:59:59 CLS Outpatient SADAF JACOBS MD [facility] RAD LT THYROID NODULE [id number] 01/22/2017 14:12:00 017 23:59:59 CLS Outpatient SADFA JACOBS MD [facility] RAD THYROID NODULE [id number] 12/04/2016 08:40:00 017 23:59:59 CLS Outpatient ROSALINE FLOR DO [facility] RAD CEPHALGIA,HX OF MALIGNANT MELANOMA [id number] 09/13/2016 14:54:00 017 13:04:00 DIS Inpatient MARYSE VIVAS a [facility] 4TH HERPES ZOSTER OUTBREAK TO FACE [id number] 04/12/2016 10:00:00 017 00:01:00 DIS Outpatient MARYSE VIVAS [facility] ONC [id number] 04/20/2016 16:15:00 017 17:30:00 DIS Inpatient MARYSE VIVAS a [facility] 4TH SWB HERPES ZOSTER [id number] 04/14/2016 01:15:00 017 16:15:00 DIS Inpatient MARYSE VIVAS a [facility] 4TH FACIAL SHINGLES W INTRA CTABLE PAIN [id number] 10/11/2015 09:53:00 016 00:01:00 DIS Outpatient MARYSE VIVAS [facility] ONC [id number] 02/23/2015 11:41:00 016 00:01:00 DIS Outpatient MARYSE VIVAS [facility] ONC [id number] 03/09/2015 12:54:00 016 23:59:59 CLS Outpatient MARYSE VIVAS [facility] FS [id number] 10/15/2014 14:17:00 015 00:01:00 DIS Outpatient MARYSE VIVAS V [facility] ONC [id number] 10/27/2014 11:02:00 015 23:59:59 CLS Outpatient MARYSE VIVAS V [facility] FS [id number] 08/31/2014 11:13:00 23:59:59 CLS Outpatient MARYSE VIVAS V [facility] RAD HX OF PUL NODULE [id number] 07/21/2014 14:03:00 23:59:59 CLS Outpatient MARYSE VIVAS V [facility] FS [id number] 05/19/2014 10:40:00 23:59:59 CLS Outpatient MARYSE VIVAS V [facility] RAD HX OF MALIGNANT MELANOM A [id number] 04/07/2014 10:42:00 23:59:59 CLS Outpatient MARYSE VIVAS V [facility] RAD ABD PAIN, CRAMPING [id number] 03/10/2014 15:08:00 23:59:59 CLS Outpatient MARYSE VIVAS V [facility] FS [id number] 02/14/2014 13:58:00 015 16:35:00 DIS Inpatient MARYSE VIVAS [facility] 4TH TIDWELL,SWELLING OF FACE [id number] 02/06/2014 08:52:00 014 08:00:00 DIS Outpatient ARLENE LAM, SADAF Guillory [facility] SDC CHRONIC SINUSITIS;HYPER THROPY TURBINATES [id number] 02/03/2014 20:30:00 014 19:00:00 DIS Inpatient MARYSE VIVAS [facility] 4TH R FACIAL LYMPHEDEMA,INT RACTABLE PAIN [id number] 02/04/2014 08:45:00 014 23:59:59 CLS Preadmit LINO MD, LAURO Bravo ia [facility] RAD REOCCURING UTI [id number] 02/02/2014 08:20:00 23:59:59 CLS Outpatient ARLENE LAM, ASDAF Mcdaniel [facility] PREOP CHRONIC SINUSITIS;HYPER TROPHY TURBINATES [id number] 02/02/2014 20:28:00 22:18:00 DIS Emergency LUIS A BUTTERFIELD, HIRAL Malin [facility] ER ALLERGIC REACTION [id number] 12/30/2013 08:22:00 23:59:59 CLS Outpatient HARINDER LAM, MAISHA Malin [facility] RAD CHRONIC SINUSITIS [id number] 07/02/2013 03:45:00 00:01:00 DIS Outpatient MARYSE VIVAS V [facility] ONC [id number] 09/03/2013 09:06:00 23:59:59 CLS Outpatient TYLOR MENDOZA MD Via [facility] RAD NECK PAIN [id number] 07/08/2013 09:20:00 23:59:59 CLS Outpatient MARYSE VIVAS V [facility] RAD MELANOMA [id number] 07/01/2013 14:45:00 14:07:00 DIS Outpatient TYLOR MENDOZA MD Via [facility] REHAB CERVICALGIA [id number] 06/02/2013 12:51:00 23:59:59 CLS Outpatient MARYSE VIVAS V [facility] ONC [id number] 04/29/2013 13:44:00 17:00:00 DIS Outpatient YOMAIRA MCKENZIE DO Via [facility] SDC DYSPHAGIA [id number] 04/23/2013 10:51:00 23:59:59 CLS Outpatient YOMAIRA MCKENZIE DO [facility] PREOP DYSPHAGIA [id number] 01/27/2013 12:19:00 23:59:59 CLS Outpatient TYLOR MENDOZA MD [facility] CARD THORACALGIA [id number] 12/17/2012 07:49:00 23:59:59 CLS Outpatient ANA LAURA EDWARD SOFTWARE APPLICATION[employer] DESIGNER [facility] RAD MALIGNANT MELAN NICOLETTE [id number] 12/13/2012 08:01:00 23:59:59 CLS Outpatient TYLOR MENDOZA MD [facility] CARD DDD LUMBAR [id number] 12/09/2012 13:58:00 23:59:59 CLS Outpatient ANA LAURA EDWARD SOFTWARE APPLICATION[employer] DESIGNER [facility] ONC [id number] 10/02/2012 12:29:00 23:59:59 CLS Outpatient ALYSIA ARIAS APRN [facility] RAD LUMBAR RADICULO LADONNA [id number] 01/24/2019 15:26:[address] Inpatient MARYSE VIVAS Amrita [facility] 4TH HX R FACIAL HERPES INFECTION ,R TRIGEMINAL [id number] 09/23/2017 10:26:00 Document Registration [id number] 05/08/2014 10:16:00 Document Registration [id number] 04/07/2014 10:42:00 Document Registration [id number] 04/07/2014 10:42:00 Document Registration [id number] 04/07/2014 10:42:00 Document Registration [id number] 04/07/2014 10:42:00 Document Registration [id number] 02/03/2014 14:04:00 Document Registration [id number] 01/21/2014 08:48:00 Document Registration [id number] 09/30/2013 00:00:00 Document Registration [id number] 05/23/2012 14:20:00 Document Registration [id number] 03/22/2012 15:21:00 Document Registration [id number] 01/22/2012 10:34:00 Document Registration [id number] 10/12/2011 10:22:00 Document Registration [id number] 07/11/2011 12:52:00 Document Registration [id number] 06/29/2011 13:51:00 Document Registration [id number] 03/02/2011 13:18:00 Document Registration [id number] 02/03/2011 10:49:00 Document Registration [id number] 02/02/2011 13:32:00 Document Registration [id number] 11/21/2010 09:32:00 Document Registration [id number] 11/09/2010 14:36:00 Document Registration [id number] 08/01/2010 12:59:00 Document Registration [id number] 05/02/2010 14:07:00 Document Registration [id number] 04/29/2010 14:06:00 Document Registration [id number] 04/02/2010 07:51:00 Document Registration [id number] 02/26/2010 19:10:00 Document Registration [id number] 02/25/2010 10:52:00 Document Registration [id number] 02/24/2010 07:20:00 Document Registration [id number] 02/21/2010 15:26:00 Document Registration [id number] 02/01/2010 19:54:00 Document Registration [id number] 01/21/2010 17:18:00 Document Registration [id number] 01/21/2010 14:45:00 Document Registration [id number] 12/13/2009 10:12:00 Document Registration [id number] 09/21/2009 13:30:00 Document Registration [id number] 09/15/2009 13:56:00 Document Registration [id number] 06/25/2009 09:44:00 Document Registration [id number] 03/11/2009 14:06:00 Document Registration [id number] 12/03/2008 10:30:00 Document Registration [id number] 06/04/2008 00:00:00 Document Registration
[2019-02-19 23:48] VITALS: BP 125/79
[2019-02-20] MEDS: CATHETER FLUSH 10 ML SYR IV SCH ×3 (06:44→22:30)
[2019-02-20] MEDS: GABAPENTIN 300 MG (NEURONTIN) CAP PO SCH (06:44)
[2019-02-20] MEDS: HYDROCORTISONE 1% OINT 30 GM TUBE TOP SCH ×2 (07:43→19:50)
[2019-02-20] MEDS: NEO/POLY/BAC (NEOSPORIN) OINT 15 GM TUBE TOP SCH ×2 (07:43→19:50)
[2019-02-20 08:00] VITALS: BP 136/85
[2019-02-20] MEDS: DULoxetine 30 MG (CYMBALTA) CAP PO SCH (08:15)
[2019-02-20] MEDS: ACYCLOVIR 400 MG TABLET (ZOVIRAX) PO SCH ×2 (08:16→19:50)
[2019-02-20] MEDS: DOCUSATE SODIUM 100 MG (COLACE) CAP PO SCH ×2 (08:16→19:50)
[2019-02-20] MEDS: OXYBUTYNIN (DITROPAN) 5 MG TAB PO SCH (08:16)
[2019-02-20] MEDS: PANTOPRAZOLE 40 MG (PROTONIX) TAB PO SCH (08:16)
--- NOTE | 2019-02-20 14:42 | Progress Note ---
Standard Progress Note Progress Notes/Assess & Plan Date Seen by a Provider: Feb 20, 2019 Time Seen by a Provider: 14:42 Progress/Assessment & Plan Pt is sleeping. I did not wake her up. She reported to nurse that she has more tingling of her face today and is not ready to go home today. Will continue the PO Acyclovir and prepare to go home later today or tomorrow. Slightly elevated LFTs slowly coming down. 48-year-old female admitted with recurrence of herpetic neuralgia involving the right side of face on 01/24/2019. Last flare was in January 2018 requiring hospitalization. She has history of stage III malignant melanoma involving the right cervical lymph nodes and underwent right radical neck dissection followed by radiation therapy. She recurred to the abdominal wall and was resected and has been on surveillance since then without evidence of recurrence. Patient was diagnosed with herpes incognito with a right cheek biopsy in 2010 at [facility] and has been readmitted with recurrence more than 20 times since then. 1) Patient has had improvement in the burning sensation of her right ear and neck. The existing vesicular lesions are stable. Current pain regimen controlling neuralgia. Continue Gabapentin 300 mg in morning and 600 mg at bedtime. 2) Patient the same pain medication. 3) Continue stool softeners and osmotic laxatives; bisacodyl available prn. 4) Mild AST and ALT elevation. Slowly resolving. JAYJAY LICONA MD Feb 20, 2019 14:42
[2019-02-20 16:00] VITALS: BP 117/80
[2019-02-20] MEDS: GABAPENTIN 600 MG (NEURONTIN) TAB PO SCH (18:06)
[2019-02-20] MEDS: DOXEPIN 25 MG (SINEquan) CAP PO SCH (19:50)
[2019-02-21] VITALS: BP 128/80
[2019-02-21] MEDS: GABAPENTIN 300 MG (NEURONTIN) CAP PO SCH (06:19)
[2019-02-21] MEDS: CATHETER FLUSH 10 ML SYR IV SCH ×2 (06:19→11:02)
[2019-02-21 08:00] VITALS: BP 122/79
[2019-02-21] MEDS: HYDROCORTISONE 1% OINT 30 GM TUBE TOP SCH (09:00)
[2019-02-21] MEDS: NEO/POLY/BAC (NEOSPORIN) OINT 15 GM TUBE TOP SCH (09:00)
[2019-02-21] MEDS: ACYCLOVIR 400 MG TABLET (ZOVIRAX) PO SCH (09:14)
[2019-02-21] MEDS: OXYBUTYNIN (DITROPAN) 5 MG TAB PO SCH (09:14)
[2019-02-21] MEDS: DULoxetine 30 MG (CYMBALTA) CAP PO SCH (09:14)
[2019-02-21] MEDS: DOCUSATE SODIUM 100 MG (COLACE) CAP PO SCH (09:15)
[2019-02-21] MEDS: PANTOPRAZOLE 40 MG (PROTONIX) TAB PO SCH (09:15)
[2019-02-21] MEDS: FENTANYL PATCH REMOVAL TP SCH (09:17)
--- NOTE | 2019-02-21 10:00 | NUR ---
PT REPORTS FEELING JERKY, SWEATY & COLD. VS OBTAINED 36.3 96 HR 95% RA BP 127/79. NO PAIN AT THIS TIME. PT REPORTS WANTING TO "GET OUT OF HERE". DR LICONA NOTIFIED VIA PHONE AND GAVE ORDERS FOR XANAX 0.5MG ONCE AT THIS TIME. PT IS TO DISCHARGE TODAY.
[2019-02-21] MEDS ORDERED: ALPRAZolam 0.5 MG (XANAX) TAB PO NR (10:30)
[2019-02-21] MEDS ORDERED: ONDANSETRON 4 MG/2 ML (SDV) Z0FRAN ONE (10:55)
[2019-02-21] MEDS: fentaNYL PATCH 12 MCG (DURAGESIC) TD SCH (11:00)
--- NOTE | 2019-02-21 11:44 | NUR ---
provided prayer and Communion.
--- NOTE | 2019-02-21 13:32 | NUR ---
"RD ASSESSMENT PMHx: Recurrent herpes zoster; HTN; GERD; hypercholesterolemia; chronic UTI; melanoma PT INTERACTION: Pt was semi-awake and pleasant during nutrition follow-up. Pt states appetite has been declining since last assessment. Note avg PO intake of 69% x6d, per chart review. Pt states episodes of nausea and diarrhea since last assessment. Note last BM was 1/3 and pt currently on bowel regimen of colace BID, per chart review. ABNORMAL NUTRITION-RELATED LAB VALUES LOW: Pro 6.2 HIGH: AST 44; ALT 64 Est. kcal needs: 4271-2303 kcal | 15-18 kcal/kg Est. Pro needs: 82-102 g Pro | 0.8-1.0 g Pro/kg PES STATEMENT: Inadequate oral intake (NI-2.1) related to loss of appetite | nausea | diarrhea as evidenced by pt interview | avg PO intake 69% x6d INTERVENTION: Continue with current diet order of Regular diet. Encouraged pt to eat when able. Pt may benefit from nutrition supplementation if PO intake continues to decline. Will continue to follow and reassess as pt needs and status change. MONITOR/EVALUATE: PO Intake; Plan of Care; Hydration Status; Weight Status; Lab Values Geeta Song, MS, RD, LD"
[2019-02-21] MEDS ORDERED: ALPR0.5T7 PO (13:57)
[2019-02-21] MEDS ORDERED: OXC5T PO (13:57)
--- NOTE | 2019-02-21 14:05 | Discharge Instructions ---
Discharge Instructions Reconcile Patient Problems Problems Reviewed?: Yes Discharge Medications New, Converted or Re-Newed RX: RX Given to Pt/Family Patient Instructions Goal/Follow Up Appt: Keep previously scheduled appointment with Dr. [facility]. Activity & Diet Discharge Diet: No Restrictions Activity as Tolerated: Yes DEVI ALDANA MD Feb 21, 2019 14:04
--- NOTE | 2019-02-21 14:30 | Discharge Summary ---
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 She was started immediately on IV acyclovir to prevent progression of disease to herpes ophthalmicus or encepha litis. IV opiates were started for pain control. During her hospital course, she was also treated for bronchitis with antibiotics and oral thrush with fluconazole. She completed a full course of both medications while in the hospital. She was also noted to have very mild AST/ALT elevations. Statin was stopped due to muscle cramps. There were supply issues of IV acyclovir, and while she was on PO acyclovir, she had worsening of pain and rash. Eventually a sufficient supply of IV acyclovir was obtained and restarted. Patient symptoms eventually improved and she was tapered back to PO acyclovir prior to discharge. ] Labs and Pending Lab Test: Microbiology 02/04/19 Throat Culture - Final, Complete No Beta Strep isolated Home Meds Active Oxycodone IR (Oxycodone HCl) 5 Mg Tab 5-10 Mg PO Q4H PRN 7 Days Alprazolam 0.5 Mg Tablet 0.5 Mg PO BID PRN PRN 7 Days Reported [place] 3 1,000 mg Softgel ([place] Hawk-3 Fatty Acids/Fish Oil) 1 Each Capsule 1 Each PO DAILY Acyclovir 400 Mg Tablet 400 Mg PO 5XD PRN ONLY TAKES 5 TIMES A DAY WHEN SHE FEELS SHINGLES SYMPTOMS COMING ON Carafate (Sucralfate) 1 Gm Tablet 1 Gm PO QID PRN Protonix (Pantoprazole Sodium) 40 Mg Tablet. 40 Mg PO DAILY Gabapentin 300 Mg Capsule 600 Mg PO HS Gabapentin 300 Mg Capsule 300 Mg PO DAILY PRN D3-50 (Cholecalciferol (Vitamin D3)) 50,000 Unit Capsule 50,000 Unit PO SUNDAY Levofloxacin 500 Mg Tablet 500 Mg PO DAILY Acyclovir 400 Mg Tablet 400 Mg PO BID Duloxetine HCl 60 Mg Capsule. 60 Mg PO DAILY Atorvastatin Calcium 10 Mg Tablet 10 Mg PO HS Assessment/Pt Instructions Resolution of herpes zoster of the trigeminal nerve. Follow up with Dr. Nacho as previously scheduled. Discharge Planning: <30 minutes discharge planning Discharge Instructions Discharge Diet: No Restrictions Activity as Tolerated: Yes Pneumonia Vaccine Order Indica: Yes Discharge Physical Examination Vital Signs Vital Signs Date Time Temp Pulse Resp B/P (MAP) Pulse Ox O2 Delivery O2 Flow Rate FiO2 02/21/19 08:45 95 Room Air 02/21/19 08:00 36.2 85 18 122/79 (93) General Appearance: No Apparent Distress, WD/WN HEENT: PERRL/EOMI, Normal ENT Inspection Respiratory: Chest Non Tender, Lungs Clear, Normal Breath Sounds, No Accessory Muscle Use, No Respiratory Distress Cardiovascular: Regular Rate, Rhythm, No Edema, No Murmur Gastrointestinal: Normal Bowel Sounds, Non Tender, Soft Extremity: Normal Inspection, Normal Range of Motion Skin: Other (right facial rash and swelling much improved with resolving vesicular lesions) Neurologic/Psychiatric: Alert, Oriented x3, No Motor/Sensory Deficits, Normal Mood/Affect Allergies: Coded Allergies: promethazine (Verified Allergy, Unknown, 04/13/16) vancomycin (Verified Allergy, Unknown, RASH, 09/13/16) reacted to iv vancomycin in cancer center on 01/21 Discharge Summary Date of Admission Jan 24, 2019 at 15:26 Date of Discharge Feb 21, 2019 at 15:00 Admission Diagnosis Recurrent herpes zoster of face Clinical Quality Measures DVT/VTE Risk/Contraindication: Risk Factor Score Per Nursin RFS Level Per Nursing on Admit: 1=Low/No VTE PPX DEVI ALDANA MD Feb 21, 2019 14:13
[2019-02-21 15:30] VITALS: BP 122/79
== END 2019-02-21 15:30 | disposition home or self-care (01) | DRG 74 ==
LOC: EDUNIT# 14:21 → ER 14:23 → 4TH 15:26
PROVIDERS: ADMIT Internal Medicine Hematology & Oncology; ATTEND Internal Medicine Hematology & Oncology
DX: B02.22 Postherpetic trigeminal neuralgia (principal); J01.90 Acute sinusitis, unspecified; I10 Essential (primary) hypertension; E78.00 Pure hypercholesterolemia, unspecified; G43.909 Migraine, unspecified, not intractable, without status migrainosus; K21.9 Gastro-esophageal reflux disease without esophagitis; M79.7 Fibromyalgia; K58.9 Irritable bowel syndrome, unspecified; R13.10 Dysphagia, unspecified; F41.9 Anxiety disorder, unspecified; F32.9 Major depressive disorder, single episode, unspecified; J40 Bronchitis, not specified as acute or chronic; Z90.09 Acquired absence of other part of head and neck; Z92.3 Personal history of irradiation; Z87.440 Personal history of urinary (tract) infections; Z85.820 Personal history of malignant melanoma of skin; Z90.710 Acquired absence of both cervix and uterus; Z92.21 Personal history of antineoplastic chemotherapy
CPT/HCPCS: 36415; 80048; 80053; 82550; 85025; 85027; 86141; 87070; 96374

== ENCOUNTER → 2019-04-14 | Outpatient (CLI) | payer BC ==
[~2019-04-14] MED LIST changes: +ALPR0.5T7 PO; +CHOL50005 PO; +LEVO500T80 PO; -MECL-106 PO; +MECL-149 PO; +OMEG1CAP58 PO; +OXC5T PO; +OXYB5TAB13 PO; -OXYB5TAB9 PO; -VALA1000 PO; +VALA10007 PO
--- NOTE | 2019-04-14 13:38 | Diagnostic Imaging Report ---
INDICATION: Bilateral nipple discharge. Correlation is made with prior mammogram from 11/21/2010. 2-D and 3-D bilateral diagnostic mammography was performed with CAD. Scattered fibroglandular densities are identified bilaterally. Circumscribed nodule in the upper and slightly outer right breast is again noted may be slightly larger on today's study. Ultrasound of this area is recommended. No new mass or malignant appearing microcalcifications are seen. Axillae are unremarkable. IMPRESSION: BI-RADS 0 1. Circumscribed nodule upper outer right breast approximately 9 cm from the nipple. This is slightly larger on today's study may represent an enlarging cyst. Further evaluation with ultrasound is recommended and will be performed today. In addition, ultrasound evaluation of the retroareolar aspects of both breasts is recommended due to nipple discharge. ACR BI-RADS Category 0: Incomplete. (Needs additional imaging evaluation). Result letter will be mailed to the patient. Note: At least 10% of breast cancer is not imaged by mammography. Dictated by: Dictated on workstation # [id number]
--- NOTE | 2019-04-14 18:28 | Diagnostic Imaging Report ---
INDICATION: Bilateral nipple discharge as well as enlarging right breast nodule. FINDINGS: Sonographic interrogation of the retroareolar regions of both breasts was performed. No sonographic abnormality is seen. No solid or cystic mass is detected. In addition, the upper and outer aspect of the right breast mid posterior depth was evaluated due to an enlarging circumscribed nodule at this location noted mammographically. There is a circumscribed hypoechoic nodule at the 11 o'clock location, 5 cm from the nipple measuring 7 mm x 6 mm x 4 mm. This likely accounts for the mammographic density. No internal vascularity is seen. No other abnormalities are detected. IMPRESSION: 1. No sonographic abnormality in the retroareolar regions is seen to explain bilateral nipple discharge. 2. Circumscribed hypoechoic nodule at the 11 o'clock location of the right breast, 5 cm from the nipple. This correlates with the density noted mammographically. This does have benign features; however after a lengthy conversation with the patient, patient explained a long history of melanoma with recurrence. Patient did express the desire to have this surgically removed. This would be amenable to ultrasound-guided needle localization and hook wire placement. ACR BI-RADS Category 4: Suspicious abnormality. Result letter will be mailed to the patient. Note: At least 10% of breast cancer is not imaged by mammography. Dictated by: Dictated on workstation # [id number]
== END ==
LOC: RAD 12:59
PROVIDERS: ATTEND Nurse Practitioner Family
DX: N63.11 Unspecified lump in the right breast, upper outer quadrant (principal)
CPT/HCPCS: 76642; 77066

== ENCOUNTER 2019-04-21 15:20 | Outpatient (CLI) | payer BC ==
[2019-04-21 16:00] VITALS: BP 0/0
[2019-04-21 16:26] LABS: ALANINE AMINOTRANSFERASE 44 U/L (0-55); ALBUMIN 4.4 GM/DL (3.2-4.5); ALKALINE PHOSPHATASE 76 U/L (40-136); BILIRUBIN,TOTAL 0.5 MG/DL (0.1-1.0); BUN/CREATININE RATIO 11; CALCIUM 9.4 MG/DL (8.5-10.1); CARBON DIOXIDE 26 MMOL/L (21-32); CHLORIDE 104 MMOL/L (98-107); CREATININE SERUM 0.92 MG/DL (0.60-1.30); GFR ESTIMATED > 60; GLUCOSE 95 MG/DL (70-105); POTASSIUM 4.1 MMOL/L (3.6-5.0); SODIUM 137 MMOL/L (135-145); TOTAL PROTEIN 7.2 GM/DL (6.4-8.2)
[2019-04-21 16:46] LABS: TSH (THYROID ANALYZER) 2.15 UIU/ML (0.35-4.94)
== END 2019-04-21 15:57 | disposition home or self-care (01) ==
LOC: SDC 15:20
PROVIDERS: ATTEND Surgery
DX: N64.52 Nipple discharge (principal)
CPT/HCPCS: 36415; 36591; 80053; 84146; 84443

== ENCOUNTER → 2019-04-29 | Outpatient (CLI) | payer BC ==
[~2019-04-29] MED LIST changes: +GADOBUTROL 10 MMOL/10 ML (GADAVIST) VIAL IV ONE
--- NOTE | 2019-04-29 14:44 | Diagnostic Imaging Report ---
PROCEDURE: MR imaging of the brain with and without contrast. TECHNIQUE: Multiplanar, multisequence MR imaging of the brain was performed with and without contrast. Additional dedicated sequences of the pituitary were performed. INDICATION: History of stage IV melanoma. Recent issue with abnormal . Evaluate for pituitary tumor. COMPARISON: CT head on 12/04/2016. FINDINGS: No acute ischemia, mass, or hemorrhage. No abnormal enhancement is seen. The ventricles, cortical sulci, and basilar cisterns are symmetric and unremarkable. The major intracranial flow voids are intact. The pituitary is unremarkable appearance without evidence of focal mass. There is normal enhancement in the pituitary. The pituitary bright spot is visualized in its normal location. The pituitary infundibulum is midline without evidence of mass. No mass effect is seen on the optic chiasm or optic nerves. The cavernous sinuses are unremarkable. The flow voids are intact and the bilateral internal carotid arteries. The brainstem and posterior fossa are unremarkable. The paranasal sinuses and mastoid air cells demonstrate normal signal characteristics. The globes and orbits are symmetric and unremarkable. The scalp and calvarium have a normal appearance. IMPRESSION: 1. No acute ischemia, mass, or hemorrhage. No abnormal enhancement to suggest metastatic disease. 2. Unremarkable appearance of the pituitary without evidence of mass. Dictated by: Dictated on workstation # [id number]
== END ==
LOC: RAD 13:17
PROVIDERS: ATTEND Surgery
DX: D35.2 Benign neoplasm of pituitary gland (principal); Z85.820 Personal history of malignant melanoma of skin
CPT/HCPCS: 70553

== ENCOUNTER → 2019-05-01 | Outpatient (CLI) | payer BC ==
[~2019-05-01] VITALS: Ht 162.6 cm; Wt 95.0 kg
[~2019-05-01] MED LIST changes: -GADOBUTROL 10 MMOL/10 ML (GADAVIST) VIAL IV ONE; +LIDOCAINE 1% INJ 20 ML 20 ML VIAL INJ ONE
--- NOTE | 2019-05-01 13:32 | Diagnostic Imaging Report ---
INDICATION: Right breast nodule. The patient presents for ultrasound-guided biopsy. The patient was brought to the procedure room, placed on the table in the supine position. Ultrasound imaging of the right breast was performed to evaluate appropriate entry site. The right breast was then prepped and draped in the usual sterile fashion. A small amount of 1% lidocaine was utilized for local anesthesia. Multiple passes were made with a 14-gauge Achieve needle. Overall, the procedure was very difficult due to the deep nature of the lesion. The lesion is very small at the 11:00 location of the right breast and against the chest wall. Next, the Fantastic[employer] hand-held vacuum-assisted 13-gauge biopsy device was advanced and placed with the biopsy chamber adjacent to the superior margin of the hypoechoic nodule. Multiple core biopsies were obtained. A clip was then deployed. Hemostasis was obtained using manual compression. The patient tolerated the procedure well and left the department in stable condition. IMPRESSION: Ultrasound-guided biopsy of the hypoechoic nodule in the right breast at the 11:00 location near the chest wall. Pathology results are currently pending. Dictated by: Dictated on workstation # [id number]
--- NOTE | 2019-05-01 13:37 | Diagnostic Imaging Report ---
INDICATION: Right breast nodule. Patient is status post right nodule biopsy. EXAM: Unilateral right 2-D and ML mammography was performed. FINDINGS: There is scattered fibroglandular tissue in the right breast. Biopsy tract in the right breast is seen with a small amount of gas. Tract extends to the nodule noted in the deep right breast. A marker clip appears to have retracted within the tract and is located more anteriorly to the nodule at the level of the mid right breast. IMPRESSION: Postbiopsy changes, right breast, as described. There has been some clip migration along the tract and is located anterior to the nodule by approximately 3 cm. Dictated by: Dictated on workstation # [id number]
== END ==
LOC: RAD 10:24
PROVIDERS: ATTEND Surgery
DX: N63.10 Unspecified lump in the right breast, unspecified quadrant (principal); Z98.890 Other specified postprocedural states
CPT/HCPCS: 19083; 88305

== ENCOUNTER 2019-06-25 08:45 | Outpatient (RCR) | payer BC ==
[~2019-06-25 08:45] MED LIST changes: -LIDOCAINE 1% INJ 20 ML 20 ML VIAL INJ ONE
[2019-06-25 09:02] LABS: BASOPHILS % (AUTO) 0 % (0-10); EOSINOPHILS # (AUTO) 0.3 10^3/uL (0.0-0.3); EOSINOPHILS % (AUTO) 5 % (0-10); HEMATOCRIT 42 % (35-52); LYMPHOCYTES # (AUTO) 1.2 X 10^3 (1.0-4.0); LYMPHOCYTES % (AUTO) 22 % (12-44); MEAN CORPUSCULAR HEMOGLOBIN 30 PG (25-34); MEAN CORPUSCULAR HGB CONC 33 G/DL (32-36); MEAN CORPUSCULAR VOLUME 91 FL (80-99); MEAN PLATELET VOLUME 8.4 FL (7.4-10.4); MONOCYTES # (AUTO) 0.4 X 10^3 (0.0-1.0); MONOCYTES % (AUTO) 8 % (0-12); NEUTROPHILS # (AUTO) 3.5 X 10^3 (1.8-7.8); NEUTROPHILS % (AUTO) 65 % (42-75); PLATELET COUNT 266 10^3/uL (130-400); RED CELL DISTRIBUTION WIDTH 12.9 % (10.0-14.5); WHITE BLOOD COUNT 5.3 10^3/uL (4.3-11.0)
[2019-06-25 09:24] LABS: ALANINE AMINOTRANSFERASE 48 U/L (0-55); ALBUMIN 4.2 GM/DL (3.2-4.5); ALKALINE PHOSPHATASE 82 U/L (40-136); BILIRUBIN,TOTAL 0.7 MG/DL (0.1-1.0); BUN/CREATININE RATIO 18; CALCIUM 9.1 MG/DL (8.5-10.1); CARBON DIOXIDE 21 MMOL/L (21-32); CHLORIDE 103 MMOL/L (98-107); CREATININE SERUM 0.96 MG/DL (0.60-1.30); GFR ESTIMATED > 60; GLUCOSE 135 MG/DL (70-105); SODIUM 137 MMOL/L (135-145); TOTAL PROTEIN 7.1 GM/DL (6.4-8.2)
== END 2019-09-23 | disposition home or self-care (01) ==
LOC: ONC 08:45
PROVIDERS: ATTEND Internal Medicine Hematology & Oncology
DX: C96.9 Malignant neoplasm of lymphoid, hematopoietic and related tissue, unspecified (principal); C43.4 Malignant melanoma of scalp and neck; C43.59 Malignant melanoma of other part of trunk; E55.9 Vitamin D deficiency, unspecified; M62.89 Other specified disorders of muscle; B00.89 Other herpesviral infection; I89.0 Lymphedema, not elsewhere classified; R25.3 Fasciculation; Z79.899 Other long term (current) drug therapy; Z98.890 Other specified postprocedural states
CPT/HCPCS: 80053; 82306; 83615; 85025; G0463; 36591

== ENCOUNTER 2019-08-21 10:11 | Outpatient (RCR) | payer BC ==
[2019-08-21 10:15] VITALS: BP 145/95
== END 2019-11-19 | disposition home or self-care (01) ==
LOC: SDC 10:11 → EDSTATUS 10:35
PROVIDERS: ATTEND Nurse Practitioner Family
DX: Z45.2 Encounter for adjustment and management of vascular access device (principal)
CPT/HCPCS: 96523

== ENCOUNTER 2020-02-04 05:38 | Outpatient (RCR) | payer BC ==
[~2020-02-04] VITALS: Ht 162.6 cm; Wt 91.4 kg
[~2020-02-04 05:38] MED LIST changes: +CALC-250 PO; +MTP25TSR PO; +PS30T PO; -PSEU30TA35 PO; +ZOLP10TA PO
== END 2020-02-05 09:46 | disposition home or self-care (01) ==
LOC: PREOP 05:38
PROVIDERS: ATTEND Surgery
DX: Z01.812 Encounter for preprocedural laboratory examination (principal); U07.1 COVID-19; K92.1 Melena
CPT/HCPCS: 87635

== ENCOUNTER 2020-03-23 05:40 | Outpatient (RCR) | payer BC | END 2020-03-26 13:38 | disposition home or self-care (01) | LOC: PREOP 05:40 | PROVIDERS: ATTEND Surgery | DX: Z01.812 Encounter for preprocedural laboratory examination (principal); K62.5 Hemorrhage of anus and rectum ==

== ENCOUNTER 2020-03-30 08:40 | Day surgery (SDC) | payer BC, MEDICARE ==
[~2020-03-30] VITALS: Ht 162 cm; Wt 91.4 kg
[2020-03-30] MEDS ORDERED: LACTATED RINGERS 1,000 ML IV STA (09:02)
[2020-03-30] MEDS ORDERED: LACTATED RINGERS 1,000 ML IV ONE (09:02)
[2020-03-30 09:10] VITALS: BP 119/104
[2020-03-30] MEDS ORDERED: HURRICAINE EXT TUBE (BENZOCAINE) XX PRN (09:15)
[2020-03-30] MEDS ORDERED: PROPOFOL INJECTION 50 ML IV ONE (10:29)
[2020-03-30] MEDS ORDERED: MIDAZOLAM 2 MG/2 ML (VERSED) VIAL ONE ×2 (10:29→10:35)
[2020-03-30 11:10] VITALS: BP 113/77
[2020-03-30 11:15] VITALS: BP 100/72
--- NOTE | 2020-03-30 11:15 | Progress Note-Post Operative ---
Post-Operative Progess Note Surgeon (s)/Instructor Adjunct Pharmacy Technician (s) Surgeon YOMAIRA MCKENZIE DO Instructor Adjunct Pharmacy Technician: na Pre-Operative Diagnosis blood per rectum, epigastric abd pain Post-Operative Diagnosis hiatal hernia, healing fissure Procedure & Operative Findings Date of Procedure 03/30/20 Procedure Performed/Findings egd c biopsies, colonoscopy Anesthesia Type per lead burner apprentice Estimated Blood Loss Estimated blood loss (mL): none Specimens/Packing Specimens Removed antrum ,ge YOMAIRA MCKENZIE DO Mar 30, 2020 11:15
--- NOTE | 2020-03-30 11:18 | Discharge Inst-Simple/Standard ---
Discharge Inst-Standard Patient Instructions/Follow Up Plan of Care/Instructions/FU: 2 weeks Lawanda Activity as Tolerated: Yes Discharge Diet: Regular Diet YOMAIRA MCKENZIE DO Mar 30, 2020 11:18
[2020-03-30 11:25] VITALS: BP 100/72
[2020-03-30 11:45] VITALS: BP 112/78
--- NOTE | 2020-03-30 13:30 | Anesthesia-General Post-Op ---
MAC Patient Condition Mental Status/LOC: Same as Preop Cardiovascular: Satisfactory Nausea/Vomiting: Absent Respiratory: Satisfactory Pain: Controlled Complications: Absent Post Op Complications Complications None Follow Up Care/Instructions Patient Instructions None needed. Anesthesiology Discharge Order Discharge Order Patient is doing well, no complaints, stable vital signs, no apparent adverse anesthesia problems. No complications reported per nursing. WENDY MARTEL CRNA Mar 30, 2020 13:30
--- NOTE | 2020-03-30 15:32 | OPERATIVE REPORT ---
DATE OF SERVICE: 03/30/2020 PREOPERATIVE DIAGNOSIS: Blood per rectum and epigastric abdominal pain. POSTOPERATIVE DIAGNOSES: Hiatal hernia, healing fissure. PROCEDURE PERFORMED: EGD with biopsies and colonoscopy. SURGEON: Yomaira Webber DO. ANESTHESIA: Per TUGBOAT OPERATOR. ESTIMATED BLOOD LOSS: None. COMPLICATIONS: None. SPECIMENS: Antrum and GE junction. INDICATIONS FOR PROCEDURE: The patient is a 49-year-old female with blood per rectum and epigastric abdominal pain. She understands the risks and benefits of the procedure and wished to proceed with the procedure. Consent was signed in the chart. DESCRIPTION OF PROCEDURE: The patient was taken to the endoscopy suite and placed in a left lateral recumbent position. Timeout was performed. Scope was inserted in the mouth, down the esophagus, stomach and into the duodenum without difficulty. There were no polyps, masses or ulcerations within the duodenum. Scope was slowly retracted back into the stomach, where it was further insufflated. Slight erythematous changes in the antrum. Biopsy of the antrum was obtained. No other pathology noted. Scope was retroflexed noting a small hiatal hernia and no other pathology. Scope was returned to its normal position, slowly withdrawn to the distal esophagus. Biopsy of the GE junction was obtained. Scope was then slowly retracted back until completely removed noting no other pathology. Digital rectal exam was performed noting a posterior anal fissure that appears to be healing and no other pathology noted. Scope was inserted in the rectum and advanced all the way to cecum with minimal difficulty. Prep was adequate. Scope was then slowly retracted back. There were no polyps, masses or ulcerations within the cecum, ascending, transverse, descending, and sigmoid colon. Once in the rectum, scope was retroflexed noting no other pathology. Scope was returned to its normal position, slowly withdrawn until completely removed. The patient tolerated the procedure well without any complications. She was taken to the recovery room in a stable condition. RECOMMENDATIONS: The patient recommended to keep stools soft, need repeat colonoscopy in 10 years unless family history of colon cancer, which would then be five years. Any problems before that be seen at that time and follow up in the office in two weeks to discuss pathology results. The patient to continue on current medications. Job ID: [id number] DocumentID: [id number] Dictated Date: 03/30/2020 11:22:12 Bonderizer Operator Date: 03/30/2020 15:32:17 Dictated By: YOMAIRA WEBBER DO
== END 2020-03-30 11:55 | disposition home or self-care (01) ==
LOC: ENDO 08:40
PROVIDERS: ATTEND Surgery
DX: K29.50 Unspecified chronic gastritis without bleeding (principal); K21.00 Gastro-esophageal reflux disease with esophagitis, without bleeding; K44.9 Diaphragmatic hernia without obstruction or gangrene; K92.1 Melena; I10 Essential (primary) hypertension; G43.909 Migraine, unspecified, not intractable, without status migrainosus; F41.9 Anxiety disorder, unspecified; F32.9 Major depressive disorder, single episode, unspecified; E66.9 Obesity, unspecified; Z68.34 Body mass index [BMI] 34.0-34.9, adult; M19.90 Unspecified osteoarthritis, unspecified site; Z79.899 Other long term (current) drug therapy; Z88.1 Allergy status to other antibiotic agents; Z88.8 Allergy status to other drugs, medicaments and biological substances; Z90.710 Acquired absence of both cervix and uterus
CPT/HCPCS: 88305; 88342

== ENCOUNTER → 2020-05-19 | Outpatient (CLI) | payer MEDICARE, BC ==
[~2020-05-19] MED LIST changes: +ACYC-108 PO; +ACYC-112 PO; -ACYC200C PO; -ACYC400T PO; -ACYC800T PO; -AMIT10TA6 PO; +AMT10T PO
== END ==
LOC: ONC 14:32
PROVIDERS: ATTEND Internal Medicine Hematology & Oncology
DX: Z45.2 Encounter for adjustment and management of vascular access device (principal); K44.9 Diaphragmatic hernia without obstruction or gangrene; K60.2 Anal fissure, unspecified; K20.90 Esophagitis, unspecified without bleeding; K29.50 Unspecified chronic gastritis without bleeding; K92.1 Melena
CPT/HCPCS: 96523

== ENCOUNTER 2020-06-29 11:04 | Outpatient (RCR) | payer BC, MEDICARE ==
[2020-06-29 11:25] LABS: BASOPHILS % (AUTO) 0 % (0-10); EOSINOPHILS # (AUTO) 0.2 10^3/uL (0.0-0.3); EOSINOPHILS % (AUTO) 3 % (0-10); HEMATOCRIT 44 % (35-52); HEMOGLOBIN 14.7 g/dL (11.5-16.0); LYMPHOCYTES # (AUTO) 1.6 10^3/uL (1.0-4.0); LYMPHOCYTES % (AUTO) 29 % (12-44); MEAN CORPUSCULAR HEMOGLOBIN 31 pg (25-34); MEAN CORPUSCULAR HGB CONC 34 g/dL (32-36); MEAN CORPUSCULAR VOLUME 93 fL (80-99); MEAN PLATELET VOLUME 8.3 fL (9.0-12.2); MONOCYTES # (AUTO) 0.4 10^3/uL (0.0-1.0); MONOCYTES % (AUTO) 7 % (0-12); NEUTROPHILS # (AUTO) 3.4 10^3/uL (1.8-7.8); NEUTROPHILS % (AUTO) 61 % (42-75); PLATELET COUNT 291 10^3/uL (130-400); WHITE BLOOD COUNT 5.7 10^3/uL (4.3-11.0)
[2020-06-29 11:49] LABS: ALANINE AMINOTRANSFERASE 25 U/L (0-55); ALBUMIN 4.3 GM/DL (3.2-4.5); ALKALINE PHOSPHATASE 63 U/L (40-136); BILIRUBIN,TOTAL 0.5 MG/DL (0.1-1.0); BUN/CREATININE RATIO 18; CARBON DIOXIDE 25 MMOL/L (21-32); CHLORIDE 103 MMOL/L (98-107); CREATININE SERUM 0.84 MG/DL (0.60-1.30); GFR ESTIMATED > 60; GLUCOSE 126 MG/DL (70-105); SODIUM 136 MMOL/L (135-145); TOTAL PROTEIN 7.1 GM/DL (6.4-8.2)
== END 2020-09-27 | disposition home or self-care (01) ==
LOC: ONC 11:04
PROVIDERS: ATTEND Internal Medicine Hematology & Oncology
DX: Z08 Encounter for follow-up examination after completed treatment for malignant neoplasm (principal); Z85.820 Personal history of malignant melanoma of skin; C43.59 Malignant melanoma of other part of trunk; E55.9 Vitamin D deficiency, unspecified; M62.89 Other specified disorders of muscle; B00.89 Other herpesviral infection; I89.0 Lymphedema, not elsewhere classified; R25.3 Fasciculation; Z79.899 Other long term (current) drug therapy; Z98.890 Other specified postprocedural states
CPT/HCPCS: 80053; 82306; 83615; 85025; G0463; 36591

== ENCOUNTER 2020-12-29 09:09 | Outpatient (RCR) | payer BC, MEDICARE ==
[~2020-12-29 09:09] MED LIST changes: -LEVO500T80 PO; +LEVO500T81 PO
== END 2021-01-10 | disposition home or self-care (01) ==
LOC: ONC 09:09
PROVIDERS: ATTEND Internal Medicine Hematology & Oncology
DX: Z45.2 Encounter for adjustment and management of vascular access device (principal); C96.9 Malignant neoplasm of lymphoid, hematopoietic and related tissue, unspecified; C43.4 Malignant melanoma of scalp and neck; C43.59 Malignant melanoma of other part of trunk; E66.9 Obesity, unspecified; B00.89 Other herpesviral infection; Z79.899 Other long term (current) drug therapy; Z98.890 Other specified postprocedural states; Z87.891 Personal history of nicotine dependence
CPT/HCPCS: 96523

== ENCOUNTER → 2021-04-05 | Outpatient (CLI) | payer BC, MEDICARE ==
[~2021-04-05] MED LIST changes: +ASCO500T17 PO; +CYAN250014 PO
== END ==
LOC: LABNPT 08:29
PROVIDERS: ATTEND Surgery
DX: Z20.822 Contact with and (suspected) exposure to COVID-19 (principal)
CPT/HCPCS: 87635

== ENCOUNTER 2021-04-06 05:34 | Outpatient (CLI) | payer BC, MEDICARE ==
[~2021-04-06] VITALS: Ht 162.6 cm; Wt 93.6 kg
[~2021-04-06 05:34] MED LIST changes: -ASCO500T17 PO; -CYAN250014 PO
[2021-04-06] MEDS ORDERED: CYAN250014 PO (10:57)
[2021-04-06] MEDS ORDERED: ASCO500T17 PO (10:57)
== END 2021-04-06 10:58 | disposition home or self-care (01) ==
LOC: PREOP 05:34
PROVIDERS: ATTEND Surgery
DX: Z01.818 Encounter for other preprocedural examination (principal)

== ENCOUNTER 2021-04-07 10:00 | Day surgery (SDC) | payer MEDICARE, BC ==
[~2021-04-07] VITALS: Ht 162.6 cm; Wt 93.6 kg
[~2021-04-07 10:00] MED LIST changes: +ASCO500T17 PO; +CYAN250014 PO
[2021-04-07] MEDS ORDERED: LACTATED RINGERS 1,000 ML IV ONE (10:07)
[2021-04-07 10:15] VITALS: BP 113/75
[2021-04-07] MEDS ORDERED: LACTATED RINGERS 1,000 ML IV STA (10:18)
[2021-04-07] MEDS ORDERED: HURRICAINE EXT TUBE (BENZOCAINE) XX PRN (10:30)
[2021-04-07] MEDS ORDERED: proPOfol 200 MG/20 ML (DIPRIVAN) VIAL IV ONE (10:49)
[2021-04-07] MEDS ORDERED: MIDAZOLAM 2 MG/2 ML (VERSED) VIAL ONE ×2 (10:49→10:59)
[2021-04-07] MEDS ORDERED: LIDOCAINE PF 2% 5 ML (XYLOCAINE) VIAL ONE (10:52)
--- NOTE | 2021-04-07 10:58 | Progress Note-Pre Operative ---
Pre-Operative Progress Note H&P Reviewed The H&P was reviewed, patient examined and no changes noted. Date Seen by Provider: Apr 07, 2021 Time Seen by Provider: 10:58 Date H&P Reviewed: Apr 07, 2021 Time H&P Reviewed: 10:58 Pre-Operative Diagnosis: chronic gastritis YOMAIRA MCKENZIE DO Apr 07, 2021 10:58
[2021-04-07 11:15] VITALS: BP 120/71
[2021-04-07 11:20] VITALS: BP 118/78
--- NOTE | 2021-04-07 11:20 | Progress Note-Post Operative ---
Post-Operative Progess Note Surgeon (s)/Caretaker (s) Surgeon YOMAIRA MCKENZIE DO Caretaker: na Pre-Operative Diagnosis chronic gastritis Post-Operative Diagnosis hiatal hernia, Procedure & Operative Findings Date of Procedure 04/07/21 Procedure Performed/Findings egd c biopsies Anesthesia Type per arresting gear operator Estimated Blood Loss Estimated blood loss (mL): scant Specimens/Packing Specimens Removed antrum, ge YOMAIRA MCKENZIE DO Apr 07, 2021 11:20
[2021-04-07 11:22] VITALS: BP 118/78
--- NOTE | 2021-04-07 11:26 | Discharge Inst-Simple/Standard ---
Discharge Inst-Standard Patient Instructions/Follow Up Plan of Care/Instructions/FU: 2 weeks Lawanda Activity as Tolerated: Yes Discharge Diet: Regular Diet (small regular diet) YOMAIRA MCKENZIE DO Apr 07, 2021 11:26
[2021-04-07 11:45] VITALS: BP 110/82
--- NOTE | 2021-04-07 12:49 | OPERATIVE REPORT ---
DATE OF SERVICE: 04/07/2021 PREOPERATIVE DIAGNOSIS: Chronic gastritis. POSTOPERATIVE DIAGNOSIS: Hiatal hernia. PROCEDURE: EGD with biopsies. SURGEON: Yomaira Webber DO ANESTHESIA: Per API ARCHITECT. ESTIMATED BLOOD LOSS: None. COMPLICATIONS: None. INDICATIONS: The patient is a 50-year-old female with chronic gastritis symptoms. She understands risks and benefits of procedure and wishes to proceed. Consent was signed in the chart. DESCRIPTION OF PROCEDURE: The patient was taken to the endoscopy suite, placed in left lateral recumbent position. Timeout was performed. Scope was inserted in mouth, down the esophagus, stomach, into the duodenum without difficulty. No polyps, masses or ulcerations within the duodenum. Scope was slowly retracted back to stomach where it was further insufflated. A slight fullness in the antrum was present. Biopsy of this area was obtained. No polyps, masses or ulcerations. Scope was slowly retracted back in retroflexed noting a moderate to large sliding hiatal hernia, no other pathology noted. Scope was returned to its normal position, slowly withdrawn to distal esophagus. Biopsy of GE junction was obtained. There were no polyps, masses or ulcerations. Scope was slowly retracted back until completely removed. The patient tolerated procedure well without any complications, taken to recovery room in stable condition. RECOMMENDATIONS: The patient to continue on current medications. She will follow up on biopsies. Further recommendations pending symptoms and biopsy results. Job ID: [id number] DocumentID: [id number] Dictated Date: 04/07/2021 11:36:10 Vocal Teacher Date: 04/07/2021 12:48:52 Dictated By: YOMAIRA WEBBER DO [facility]
== END 2021-04-07 12:02 | disposition home or self-care (01) ==
LOC: SDC 10:00 → ENDO 12:02
PROVIDERS: ATTEND Surgery
DX: K29.50 Unspecified chronic gastritis without bleeding (principal); K21.00 Gastro-esophageal reflux disease with esophagitis, without bleeding; K44.9 Diaphragmatic hernia without obstruction or gangrene; I10 Essential (primary) hypertension; E66.9 Obesity, unspecified; Z68.35 Body mass index [BMI] 35.0-35.9, adult; F32.A Depression, unspecified; Z85.820 Personal history of malignant melanoma of skin; Z79.899 Other long term (current) drug therapy

== ENCOUNTER → 2021-07-11 | Outpatient (CLI) | payer MEDICARE, BC ==
[~2021-07-11] MED LIST changes: +GADOTERATE 0.5 MMOL/ML (CLARISCAN) 20 ML VIAL IV ONE
--- NOTE | 2021-07-11 10:15 | Diagnostic Imaging Report ---
PROCEDURE: US carotid duplex, bilateral. TECHNIQUE: Multiple real-time grayscale images were obtained over the carotid arteries in various projections, bilaterally. Additional spectral analysis and color Doppler duplex images were also obtained. INDICATION: Hypertension, dizziness, headaches and blurred vision. FINDINGS: There are no focally elevated velocities in either internal carotid artery. The ICA/CCA ratios are within normal limits, bilaterally. There is antegrade flow in the vertebral arteries, bilaterally. Grayscale images demonstrate minimal carotid plaque, bilaterally. IMPRESSION: Minimal bilateral carotid plaque however spectral analysis shows no evidence of a hemodynamically significant stenosis in either internal carotid artery. Parameters based on the consensus panel Chung-Scale and Doppler ultrasound criteria published December 2002, Radiology, Volume 229. DOPPLER (peak systolic velocity M/S Right Left CCA .96 .90 ICA Proximal .69 .89 ICA Mid 1.13 .73 ICA Distal 1.01 .72 RATIO 1.17 .99 ECA 1.34 .59 VERT NA .71 Dictated by: Dictated on workstation # [id number]
--- NOTE | 2021-07-11 17:18 | Diagnostic Imaging Report ---
CLINICAL INDICATION: Patient has stage IV melanoma with surgery to her neck region. Patient with radical neck dissection. Patient is having issues with being dizzy. EXAM: MRI of the brain performed without and with 18 cc of IV contrast. Sequences include axial DWI, ADC map, coronal gradient echo, axial FLAIR, axial T1, axial T2, axial T1 post IV contrast whole brain, coronal T1 fat-sat post IV contrast whole brain, and sagittal T1 fat-sat post IV contrast whole brain. Comparison: MRI of the brain/pituitary dated 04/29/2019. Findings: There is no evidence of acute cerebral infarct, intracranial hemorrhage, or gross mass effect. There is no abnormal IV contrast enhancement. The brain parenchymal volume appears appropriate for patient's age. There are multiple focal areas of high T2 signal involving the subcortical white matter of both cerebral hemispheres, likely representing mild chronic small vessel ischemic disease. There is normal pearson-white matter distinction. There is no significant midline shift or herniation. The teller of Diamond vascular structures show no gross abnormality as visualized. The pituitary gland, sella, and suprasellar regions are unremarkable as visualized. There is no evidence of hydrocephalus. The basal cisterns are unremarkable. The skull, extracranial soft tissue, and orbits are unremarkable. The paranasal sinuses are unremarkable. Temporal bones show no significant abnormality. IMPRESSION: Unremarkable MRI of the brain for age. Dictated by: Dictated on workstation # [id number]
== END ==
LOC: RAD 08:22
PROVIDERS: ATTEND Internal Medicine Hematology & Oncology
DX: C43.4 Malignant melanoma of scalp and neck (principal); I65.23 Occlusion and stenosis of bilateral carotid arteries; I10 Essential (primary) hypertension
CPT/HCPCS: 70553; 93880